=== PATIENT | female | born 1970 | race Caucasian/White ===

== ENCOUNTER 2022-02-15 13:37 | Outpatient (CLI) | payer BC, SELFPAY | END 2022-02-15 13:38 | disposition home or self-care (01) | LOC: INJ CL 13:38 | PROVIDERS: PCP Physician Assistant Medical; Visit Provider Family Medicine | DX: M51.36 Other intervertebral disc degeneration, lumbar region (principal); M54.16 Radiculopathy, lumbar region | CPT/HCPCS: 62323; Q9966 ==

== ENCOUNTER 2022-04-01 11:27 | Outpatient (CLI) | payer BC, SELFPAY | END 2022-04-01 11:28 | disposition home or self-care (01) | LOC: INJ CL 11:27 | PROVIDERS: PCP Physician Assistant Medical; Visit Provider Family Medicine | DX: M54.16 Radiculopathy, lumbar region (principal); M51.36 Other intervertebral disc degeneration, lumbar region | CPT/HCPCS: 64483; J1100; Q9966 ==

== ENCOUNTER 2023-08-02 08:08 | Day surgery (SDC) | payer BC, SELFPAY ==
[2023-08-02] MEDS: TETRACAINE 0.5% OPHTH 1 DROP EYE-LEFT ×2 (08:20→08:32)
[2023-08-02] MEDS: KETOROLAC OPHTH 0.5% 1 DROP EYE-LEFT ×3 (08:30→08:44)
[2023-08-02 08:34] VITALS: BP 181/86; PULSE 77; RESP 18; TEMP 36.5; O2SAT 99
[2023-08-02 08:36] VITALS: BMI 57.4
[2023-08-02] MEDS: TETRACAINE 0.5% OPHTH 2 DROP EYE-LEFT (09:33)
--- NOTE | 2023-08-02 09:37 | W.ANESCHARGE ---
Anesthesia Charges Start Date/Time Anesthesia Start Date: 08/02/23 Anesthesia Start Time: 09:28 Stop Date/Time Anesthesia Stop Date: 08/02/23 Anesthesia Stop Time: 10:04
[2023-08-02] MEDS: BALANCED SALT IRRIG SOLN 15 ML EYE-LEFT (09:38)
--- NOTE | 2023-08-02 09:41 | SUR.PREOP ---
The eye drops brought by the patient (Ketorolac and Prednisolone) are examined and I have determined they are labeled by the patient's pharmacy for this patient as prescribed by the surgeon. The bottles are intact, recently obtained and appear to be correct.
--- NOTE | 2023-08-02 09:58 | W.ANESCHARGE ---
Anesthesia Charges Start Date/Time Anesthesia Start Date: 08/02/23 Anesthesia Start Time: 09:28 Stop Date/Time Anesthesia Stop Date: 08/02/23 Anesthesia Stop Time: 10:04
[2023-08-02 10:00] VITALS: BP 143/77; PULSE 68; RESP 16; TEMP 36.9; O2SAT 100
--- NOTE | 2023-08-02 12:17 | P.OPTPRC_ITS ---
Procedure Note Date of procedure: 08/02/23 Will [facility] bill your pro fee for this procedure?: Yes Procedure Description: SURGEON: Sena Owusu MD PREOPERATIVE DIAGNOSIS: Nuclear sclerotic cataract, left eye. POSTOPERATIVE DIAGNOSIS: Nuclear sclerotic cataract, left eye. NAME OF OPERATION: Phacoemulsification of cataract with posterior chamber intraocular lens implantation in the left eye. ANESTHESIA: Topical. ESTIMATED BLOOD LOSS: Less than 2 cc. COMPLICATIONS: None. PATHOLOGY SPECIMEN: None. INDICATIONS: See consult note for details. The risks, benefits and alternatives of the procedure were explained to the patient, who elected to proceed and signed informed consent to do so. PROCEDURE: The patient was brought to the pre-holding area where the left eye was identified as the operative eye. I placed my initials above this eye. The patient received eye drops consisting of 0.5% tetracaine, 1% tropicamide, 10% phenylephrine, and 0.5% ketorolac. The patient was then brought to the operating room where the left eye was again identified as the operative eye. The eye was prepped with Betadine and draped in the usual sterile ophthalmic fashion. A #15 super-sharp blade was used to create a paracentesis site. 1% non-preserved intracameral lidocaine was injected into the anterior chamber. Endocoat was injected into the anterior chamber. A 2.4 mm keratome was used to create a three-plane self-sealing incision 1 mm anterior to the temporal limbus. A cystotome was used to create an anterior capsular leaflet. The Utrata forceps were used to extend this to form a continuous curvilinear capsulorrhexis. Hydrodissection was performed. The cataract was removed with phacoemulsification using the [id number] technique. The irrigation and aspiration tip was used to remove the remaining cortex. Healon was injected into the capsular bag. An LIZETH ZCB00 intraocular lens of 19.5 diopters was injected into the capsular bag. The irrigation and aspiration tip was used to remove the remaining viscoelastic. Balanced salt solution on a cannula was used to hydrate the wound, and the wound was found to be watertight. The pupil was noted to be round. DISPOSITION: The patient was taken to the recovery room and discharged to home in stable condition. The patient was instructed to call me or go to the emergency department with any sudden change, including dramatic loss of vision, severe pain in the eye or eyebrow region, nausea, or vomiting. The patient will follow up in the clinic tomorrow morning.
== END 2023-08-02 10:31 | disposition home or self-care (01) ==
LOC: OR 08:09
PROVIDERS: Visit Provider Ophthalmology
PROC: (CPT 66984; principal; 2023-08-02 08:15)
DX: H25.12 Age-related nuclear cataract, left eye (principal); E11.9 Type 2 diabetes mellitus without complications
CPT/HCPCS: 66984; 00142; 82962; A9270; J2250; J3010; V2632

== ENCOUNTER 2023-08-16 08:11 | Day surgery (SDC) | payer BC, SELFPAY ==
--- OUTSIDE RECORDS SUMMARY | 2023-08-16 08:13 | XMS_ITS | Clinical Summary ---
Author Name Unknown Organization [employer] [facility] Address [place], [place] [address] Care Team Providers Care Clinical Data Assistant Name Role Phone Kar Soto MD Unavailable [phone] Olvin Vega MD Unavailable [phone] Bhaskar Page MD Unavailable Major Chandler MBBS Unavailable Isak Nielson MD Unavailable Jillian Daley RV MECHANIC Unavailable [phone] Ania Avalos PsyD, LP Unavailable [phone] Na Estes MD Primary Care Provider [phone] Allergies Active Allergy Reactions Criticality Noted Date Comments Cefprozil Hives 12/25/2006 Had ceftriaxone 2020 without issues Erythromycin Diarrhea 12/25/2006 Isosorbide Mononitrate Rash 06/22/2018 Iodine Other - Describe In Comment Field,Angioedema,Na usea And Vomiting,Edema High 12/25/2006 After radioiodine; developed facial swelling and nausea/vomiting. Topical betadine ok. I-131 dye only Latex Hives 11/26/2008 As child had hives due to backing on carpeting..no other exposure issues. Levofloxacin Diarrhea 12/25/2006 Medications Medication Sig Dispensed Refills Start Date End Date Status esomeprazole (NEXIUM) 40 mg capsule Take 1 capsule by mouth 2 times daily. 60 capsule 12 7 Active acetaminophen (TYLENOL EXTRA STRGTH) 500 mg tablet Take 2 tablets by mouth every 6 hours if needed (pain, headache). 0 Active insulin syringe-needle u-100 (BD SAFETYGLIDE) 0.3 mL 31 gauge x 11/29Indications:Un controlled type 2 diabetes mellitus, without long-term current use of insulin For administering insulin at home. 1 box 0 0 Active blood-glucose meterIndications:Un controlled type 2 diabetes mellitus, without long-term current use of insulin Dispense meter, test strips, lancets covered by pt ins. E11.9 NIDDM type II - Test 4 times/day. Reason: High A1C 1 Device 0 1 Active lancetsIndications: Uncontrolled type 2 diabetes mellitus with diabetic dermatitis, with long-term current use of insulin Test 4 times per day. 200 Each 11 1 Active PreviDent 5000 Sensitive 1.1-5 % pste USE DOCTOR INSTRUCTED 0 1 Active cyproheptadine (PERIACTIN) 4 mg tablet Take 4 mg by mouth. 0 1 Active dihydroergotamine (D.H.E.45) 1 mg/mL injection Inject 0.5-1 mg intramuscular. 0 2 Active oxyCODONE-acetamino phen (Percocet) 5-325 mg per tabletIndications:L umbar radiculopathy Take 1 Tablet by mouth every 4 hours if needed for Pain. Max acetaminophen dose: 4000mg in 24 hrs. 12 Tablet 0 2 Active tiZANidine (ZANAFLEX) 2 mg tablet Take 2 Tablets (4 mg) by mouth. 0 2 Active scopolamine 1mg over 3 days (TRANSDERM SCOP) patchIndications:H/ O motion sickness Apply 1 Patch on dry, clean, hairless skin every 72 hours if needed for Nausea/Vomiting. 4 Patch 0 2 Active ondansetron (ZOFRAN) 4 mg tabletIndications:N ausea Take 1 Tablet (4 mg) by mouth every 8 hours if needed for Nausea/Vomiting. 60 Tablet 0 3 Active metoprolol succinate (Toprol XL) 25 mg Sustained-Release tabletIndications:H ypertension,Paroxys mal SVT (supraventricular tachycardia) Take 1 Tablet (25 mg) by mouth once daily. 90 Tablet 3 3 Active atorvastatin (LIPITOR) 40 mg tabletIndications:M ixed hyperlipidemia,Type 2 diabetes mellitus with other specified complication, with long-term current use of insulin (HC) Take 1 Tablet (40 mg) by mouth at bedtime. 90 Tablet 3 3 Active lisinopriL (PRINIVIL; ZESTRIL) 5 mg tabletIndications:H ypertension Take 1 Tablet (5 mg) by mouth once daily. 90 Tablet 3 3 Active blood sugar diagnostic (Blood Glucose Test) stripIndications:Un controlled type 2 diabetes mellitus with hyperglycemia (HC) Test 3 times per day. Contour Next test JUDE ASCE 300 Each 3 3 Active cyclobenzaprine (FLEXERIL) 10 mg tabletIndications:S pasm of muscle of lower back Take 1 Tablet (10 mg) by mouth 3 times daily if needed for Muscle Spasm. 60 Tablet 2 3 Active citalopram (CELEXA) 20 mg tabletIndications:A nxiety Take 1.5 Tablets (30 mg) by mouth every morning. 135 Tablet 1 3 Active nystatin powder (MYCOSTATIN) powderIndications:I ntertriginous candidiasis Apply 1 Strip topically to affected area(s) three times daily. 60 g 5 3 Active pramipexole (MIRAPEX) 0.25 mg tabletIndications:R estless legs Take 3-4 Tablets (0.75-1 mg) by mouth at bedtime. 360 Tablet 1 3 Active benzonatate (Tessalon Perles) 100 mg capsuleIndications: Viral sinusitis Take 1 Capsule (100 mg) by mouth 3 times daily if needed for Cough. 30 Capsule 0 3 Active codeine-guaiFENesin (ROBITUSSIN AC) 10-100 mg/5 mL liquidIndications:V iral sinusitis Take 5-10 mL by mouth at bedtime if needed for Cough. Max dose 60 mL per 24 hrs. 100 mL 0 3 Active levothyroxine (SYNTHROID) 200 mcg tabletIndications:P ostoperative hypothyroidism Take 1 Tablet (200 mcg) by mouth before breakfast. 90 Tablet 2 3 Active loratadine-pseudoep hedrine (lorata-dine D) 10-240 mg 24hr tabletIndications:P ost-nasal drainage Take 1 Tablet by mouth once daily. 90 Tablet 3 3 Active dulaglutide (Trulicity) 4.5 mg/0.5 mL subcutaneous penIndications:Type 2 diabetes mellitus with other specified complication, with long-term current use of insulin (HC) Inject 4.5 mg subcutaneous once weekly. 7 mL 2 3 Active insulin lispro, U-100, (HumaLOG KwikPen Insulin) 100 unit/mL inpn penIndications:Type 2 diabetes mellitus with other specified complication, with long-term current use of insulin (HC) Product desired: HUMALOG KWIKPEN. Inject up to 40u three times daily with meals 9 mL 3 3 Active polyethylene glycol 3350 (MIRALAX ORAL) Take by mouth. 0 A ctive ketorolac tromethamine (TORADOL IM) Inject intramuscular each time if needed (Migraine). 0 Active pregabalin (LYRICA) 300 mg capsule Take 300 mg by mouth two times daily. 0 3 Active pen needle, diabetic (UltiCare Pen Needle) 31 gauge x 516Indications:Un controlled type 2 diabetes mellitus with hyperglycemia (HC) For administering insulin at home. 450 Each 3 4 Active Lantus Solostar U-100 Insulin 100 unit/mL (3 mL) penIndications:Type 2 diabetes mellitus with hyperglycemia, with long-term current use of insulin (HC) Inject 83 units subcutaneous 2 times daily 12 hours apart. 150 mL 0 4 Active UltiCare Pen Needle 31 gauge x 516Indications:Un controlled type 2 diabetes mellitus with hyperglycemia (HC) USE FOR ADMINISTERING INSULIN AT HOME 450 Each 3 2 07/26/19 24 Discontinu ed(Reorder (E-cancel not sent)) Lantus Solostar U-100 Insulin 100 unit/mL (3 mL) penIndications:Type 2 diabetes mellitus with hyperglycemia, with long-term current use of insulin (HC) Inject 80 units subcutaneous 2 times daily 12 hours apart. 150 mL 0 3 08/14/19 24 Discontinu ed(Reorder (E-cancel not sent)) Active Problems Patient Care Coordination No te Formatting of this note migh t be different from the original. Alea's two adopted adult daughters are what matters most to Alea. Alea would like her care team to know ...none.. What are Alea's challenges, stressors, or barriers? Grief over loss of father, financial stressors, ongoing foot pain Problem Noted Date Diagnosed Date COVID-19 long hauler 02/25/2022 Overview: Chronic shortness of breath and weakness since COVID-19. Headaches. COVID-19 infection x2 Esophageal stricture 02/25/2022 Overview: Follows with [facility]-- last dilation 10/2020 Microalbuminuria due to type 2 diabetes mellitus 10/01/2021 Overview: 10/01/2021 Paroxysmal SVT (supraventricular tachycardia) Depression, major, single episode, severe 2021 Other specified glaucoma 05/24/2021 Primary open angle glaucoma (POAG) of both eyes, mild stage 03/08/2021 Bilateral occipital neuralgia 08/13/2020 Overview: Left occipital nerve block: kenalog + bupivacaine 08/13/2020 Complex tear of lateral meni scus of left knee as current injury 04/06/2020 COVID-19 virus infection 10/23/2019 Lower respiratory tract infection 10/17/2019 Pain due to internal orthope dic prosthetic devices, implants and grafts, sequela 01/01/2019 Uncontrolled type 2 diabetes mellitus without complication, without long-term current use of insulin 01/16/2018 PE (pulmonary thromboembolism) 11/22/2017 Deep vein thrombosis (DVT) o f distal vein of right lower extremity, unspecified chronicity 11/22/2017 Myopia of left eye with astigmatism and presbyop ia 02/06/2017 Hyperopia of right eye with astigmatism and pres byopia 02/06/2017 Postoperative hypothyroidism 03/25/2015 Hyperlipidemia 03/14/2014 Overview: Ran calculations Mar 14.;2014: With age43,fhsk035,hdl52, yfu909, treated hypertension, +dm. 10year ATHEROSCLEROTIC CARDIOVASCULAR DISEASE risk = 1.9% Recommend =mod intensity statin (10mg atorvastatin) Varicose veins of lower extr emities with other complications 09/18/2013 Overview: 09/26/13 Venous insufficiency US - 1. No deep venous thrombosis of the left lower extremity. 2. The left great saphenous vein is competent. 3. The left small saphenous vein is competent. 4. A 3 mm incompetent perforating branch is present along the anterior distal thigh and supplies superficial varicosities extending cephalad along the lateral thigh. Hypertension 04/23/2011 Vitamin D deficiency 09/10/2010 Overview: Level was 22.4 in the August 2010. 22.1 in Jun 2012. 28 in September 2012 Obesity, unspecified 11/26/2008 GERD (gastroesophageal reflux disease) 9 Gastroparesis 11/26/2008 Restless legs 11/26/2008 Papillary thyroid cancer 08/13/2007 Overview: Papillary thyroid cancer, stage 1; T1, N1a, M0 01/22/01: Surgery: subtotal thyroidectomy Pathology (reviewed at [facility] - see notes from [facility] that are currently in the system as scan on date = 08/13/07): Grade 1 (of 4) papillary thyroid cancer with 1.1cm focus. Tumor focally extended into extracapsular soft tissue. Margins negative. 1 out of 2 lymph nodes positive for metastatic disease. MACIS = 4.4 03/20/01: Given radioiodine 200 mCi listed in [facility] system (but patient recall 211 mCi ) I-131 ablation *pt had reaction to the radioiodine ablation, having development of facial swelling and nausea and vomiting soon after treatment. Has a less severe reaction around 2003 as well when have a whole body iodine scan. Pertinent risk factors: Family history: no thyroid cancer in family. Prior radiation history: not prior to radioiodine treatment for thyroid cancer Additional notes: See comments regarding: radioiodine reaction Also, had postoperative hypocalcemia. ___ Follow up: Two weeks after radioiodine given , post therapy scan was negative (done on 04/02/01) Reportedly had follow up with Dr. Tam Daley with [facility] for several years. This included a whole body scan around 2003 that was normal per report. Other specifics of follow up not available at this time. 08/13/07: Tg=0.1 08/16/07: Thyroid ultrasound: Area in the left thyroid bed which has the appearance of a residual thyroid.; this could potentially represent some recurrent thyroid tissue. 08/24/07: Thyroid ultrasound: Ultrasound of the neck evaluating for potential area to biopsy demonstrates some very vague area of increased echogenicity in the left thyroid bed, which appears to change shape and is very ill defined. This likely represents some postop change. This is not well enough defined to safely percutaneously biopsy. I think the likelihood that this represents recurrent tumor is extremely low. 04/03/08: Tg=0.1 07/24/08: thyroid ultrasound and FNA: An echogenic rounded density which with a benign appearance is seen at the left thyroid bed. This could be scar tissue. The patient is here today for fine needle aspiration. Stable in size and comparison. Pathologist did not obtain any significant material. I believe this is because its a scar, and as the ultrasound appearance is stable, I recommend just follow-up with ultrasound Results = nondiagnostic, blood; no thyroid cells. Unlikely malignant. 05/12/10: Tg = <0.1 with TSH of 0.16 06/28/12: Tg <0.1; neg TgAby. Thyroid ultrasound: Again seen is a small hyperechoic area in the left thyroid bed measuring 1.0 x 0.6 x 0.6 cm. This is stable since the prior study in 2008. Thyroid bed otherwise normal. No adenopathy in the neck. November 2012: patient felt fullness/swelling and pain in anterior neck. 11/22/12: thyroid ultrasound compared with prior ultrasounds. There is a slightly hyperechoic nodular focus within the left thyroidectomy bed, which measures 9 x 5 x 5 mm. This is decrease in size when compared to images dating back to 2008 when it measured 10 x 6 x 6 mm. No other soft tissue nodules. Several benign-appearing nonenlarged cervical chain lymph nodes. FNA (11/22/12): Actually FNA cytopathology: LEFT THYROID BED, FINE NEEDLE ASPIRATION:1. Negative for malignancy. 2. Blood and soft tissue noted FNA Report: The tissue was found to contain scant soft tissue. This is despite numerous attempts at containing fine needle aspirate. Unfortunately, aspirates revealed minimal nonspecific soft tissue. Given the stability in appearance of this lesion over the past 4 years and its size, neoplasm would be highly unlikely. Consider followup ultrasound in 1 to 2 years to document stability. 11/20/12: Tg <0.1 (neg TgAby) 10/30/13 Tg = 0.1, (neg TgAby) 07/14/14: Thyroid ultrasound: CONCLUSION: 1. Stable postoperative changes of total thyroidectomy. 2. Stable nodule left thyroid bed (1.0cm), previously shown by biopsy to be benign. 08/26/14: Tg = 0.6 (neg TgAby) with TSH = 82 ! (off levothyroxine) Update Feb 2015: To this point there has been no evidence for recurrent or persistent disease. She has a small left thyroid bed nodule that is stable (or?decreased even) in size. This was biopsied/FNAed (November 2012). It sounds like there was scant material but it was read as benign and the stability of the nodule is very reassuring. September 2015: Tg<0.1. (neg TgAby) Mar 2016: thyroid ultrasound FINDINGS: The thyroid is surgically absent. Within the upper left thyroid bed there is a single hyperechoic nodule which measures 0.9 x 0.6 x 0.6 cm, previously 1.0 x 0.7 x 0.6 cm.??No cervical lymphadenopathy.?? CONCLUSION:1.?? No significant change since 07/14/2014. Tg = 0.1 in Jul 2016, with TSH = 12 Next Tg: around Aug 2018 Next thyroid ultrasound: Aug 2018 roughly Migraine, unspecified, witho ut mention of intractable migraine without mention of status migrainosus 03/17/2007 Esophageal reflux 03/02/2006 Peroneal tendon tear, right, subsequent encounte r Resolved Problems Problem Noted Date Diagnosed Date Resolved Date Acute respiratory failure with hypoxia 10/23/2019 07/28/2021 Anticoagulation monitoring, INR range 2-3 11/24/2017 01/18/2023 Controlled type 2 diabetes m ellitus with complication, with long-term current use of insulin 04/05/2016 01/16/2018 Irritable bowel syndrome without diarrhea 09/16/2015 01/16/2018 Issue of repeat prescriptions 09/01/2014 02/25/2022 Hypothyroidism 03/06/2014 03/25/2015 Overview: On 200mcg levothyroxine , TSH was elevated into the 30s in Feb 2014 without missing doses. Taking with food and/or other medications however. Going up to 250mcg levothyroxine daily and recommend taking on empty stomach, starting mid February. Uncontrolled type 2 diabetes mellitus with complication, with long-term current use of insulin 07/17/2013 01/16/2018 Overview: Diagnosis: Jun 2013. Starting Metformin Oct 2013 Started insulin Feb 2014. Other chronic nonalcoholic liver disease 05/17/2012 01/16/2018 Vitamin D deficiency 09/14/2010 012 Cellulitis and abscess of face 08/13/2007 11/29/2011 Overview: 2004-onset , with multiple recurrences Encounters Date Type Department Care Team Description 4 10:00 AM GEAR HOBBER Procedure Only [facility] [address] [place] [address] Yo Owens L Ac Acupuncture 4 Travel 4 Travel 4 11:00 AM GEAR HOBBER Procedure Only [facility] [address] [place] [address] Yo Owens L Ac Acupuncture 4 8:30 AM GEAR HOBBER Telemedicine [facility] [address] [place] [address] Ania Avalos, Sidney, LP Individual Therapy; Telehealth (/) 4 Travel 4 6:49 AM GEAR HOBBER - 4 11:59 PM GEAR HOBBER Hospital Encounter [facility] [place] [address] [place] [address] Reed Barclay, Stacy Rene, PT 4 Travel 4 7:30 AM GEAR HOBBER Preop Visit [facility] [address] [place] [address] Na Estes MD Pre-Op Exam (Bilateral Cataract Surgery at [facility] on 08/02 & 08/16) 4 11:18 AM GEAR HOBBER - 4 11:59 PM GEAR HOBBER Hospital Encounter [facility] [address] [place] [address] Reed Barclay PA Hassell, Julie A, PT 4 Travel 4 9:00 AM GEAR HOBBER Procedure Only [facility] [address] [place] [address] Yo Owens L Ac Acupuncture (1st treatment for 2023.) 4 Travel 4 3:38 PM GEAR HOBBER - 4 11:59 PM GEAR HOBBER Hospital Encounter [facility] [address] [place] [place] [address] Reed Barclay, Stacy Rene, PT 4 Travel 3 8:30 AM GEAR HOBBER Telemedicine [facility] [address] [place] [address] Ania Avalos PsyD, LP Individual Therapy; Telehealth 3 Travel 3 9:00 AM GEAR HOBBER Procedure Only [facility] [address] [place] [address] Yo Owens L Ac Acupuncture (39th treatment.) 3 8:20 AM GEAR HOBBER Ancillary Procedure [facility] [address] [place] [address] [facility] [address] [place] [address] Yo Owens L Ac Acupuncture (Order request.) 3 Travel 3 Travel 3 7:55 AM GEAR HOBBER - 3 8:36 AM GEAR HOBBER Surgery [facility] [address] [place] [address] Valentin Wen MD ESOPHAGOGASTRODUODENOSCOPY WITH DILATION 3 7:55 AM GEAR HOBBER Anesthesia Event [facility] [address] [place] [address] Kourtney Hanks MD Perese, Deniz A, MD 3 5:57 AM GEAR HOBBER - 3 12:27 PM GEAR HOBBER Hospital Encounter [facility] [address] [place] [address] Valentin Wen MD Discharge Disposition: Home Self Care 3 7:30 AM GEAR HOBBER Preop Visit [facility] [address] [place] [address] Na Estes MD Pre-Op Exam (DOS: 07/04/2023/Endoscopy with Dilation /Dr: Murali Wen @ [place]) 3 Travel 3 Orders Only [facility] [address] [place] [address] Na Estes MD <No scans attached> 3 12:19 PM GEAR HOBBER - 3 11:59 PM GEAR HOBBER [facility] [place] [address] [place] [address] Referring, Provider Stacy Carr, PT 3 Travel 3 10:30 AM GEAR HOBBER Procedure Only [facility] [address] [place] [address] Yo Owens L Ac Acupuncture (38th treatment.) 3 Travel 3 8:30 AM GEAR HOBBER Telemedicine [facility] [address] [place] [address] Ania Avalos, Sidney, LP Individual Therapy; Telehealth 3 8:30 AM GEAR HOBBER Office Visit [facility] [address] [place] [address] Na Estes MD Diabetes; Edema 3 6:50 AM GEAR HOBBER - 3 11:59 PM GEAR HOBBER Hospital Encounter [facility] [address] [place] [address] Reed Barclay PA Hassell, Julie A, PT 3 Travel 3 Travel 3 8:00 AM GEAR HOBBER Procedure Only [facility] [address] [place] [address] Yo Owens L Ac Acupuncture (37th treatment.) 3 11:57 AM GEAR HOBBER - 3 11:59 PM GEAR HOBBER Hospital Encounter [facility] [address] [place] [address] Reed Barclay, Stacy Rene, PT 3 Travel 3 9:40 AM GEAR HOBBER Orders Only [facility] [address] [place] [address] Lab 3 Travel 3 Travel 3 3:15 PM GEAR HOBBER - 3 11:59 PM GEAR HOBBER Hospital Encounter [facility] [address] [place] [address] Reed Barclay PA Hassell, Julie A, PT 3 10:20 AM GEAR HOBBER Telemedicine [facility] [address] [place] [address] Leslee Dee PA Edema (Bilateral feet, one week) 3 8:30 AM GEAR HOBBER Telemedicine [address] [address] Ania Avalos, Sidney, LP Individual Therapy; Telehealth 3 Travel 3 Travel 3 8:30 AM GEAR HOBBER Procedure Only [facility] [address] [place] [address] Yo Owens L Ac Acupuncture 3 7:39 AM GEAR HOBBER - 3 11:59 PM GEAR HOBBER Hospital Encounter [facility] [address] [place] [address] Reed Barclay PA Hassell, Julie A, PT 3 Travel 3 7:30 AM GEAR HOBBER Office Visit [facility] [address] [place] [address] Na Estes MD Physical (Patient would like to talk about ayest infection) 3 Travel 3 12:55 PM CDT - 3 11:59 PM CDT [facility] [place] [address] [place] [address] Reed Barclay PA Hassell, Julie A, PT 3 Travel from Last 3 Months Immunizations Name Administration Dates Next Due COVID-19 vaccine (Podotree 30mcg/0.3mL) STEFANIA CASTILLO 10/08/2021,05/04/2021,10/30/2020,2020 DT (Age < 7 years) 12/08/2005 Hepatitis B (Adult) 09/24/1999,05/03/1999,1998 Pneumococcal Poly,23-Valent (Pneumovax) 01/31/2020 Pneumococcal conj 13-Valent (Prevnar 13) 09/08/2021 Tdap 06/12/2017,12/08/2005 Zoster (Shingrix-RZV, recombinant) 07/30/2021, Family History Medical History Relation Name Comments Hypertension Brother Cancer Father diffuse large B -cell lymphoma Depression Father Diabetes Father Heart Disease Father cad Hypertension Mother improved after skilled nursing Other Mother scleroderma Cancer Other first cousin ut erine cancer Aneurysm Paternal Grandfather 9 diffe rent ones-- none ruptured Coronary artery disease Paternal Grandfather Other Paternal Grandfather glaucom a fathers side Thyroid Disease Paternal Grandmother Depression Sister Diabetes Sister Hyperlipidemia Sister Hypertension Sister Other Sister ICH Seizures Sister Cancer-breast No Family History Relation Name Status Comments Brother Alive Father (Age 65) Mother Alive Other Paternal Grandfather Paternal Grandmother Sister Alive Social History Tobacco Use Types Packs/Day Years Used Date Smoking Tobacco: Never Smokeless Tobacco: Never Tobacco Cessation:Counseling Given: No Alcohol Use Standard Drinks/Week Comments Not Currently 0 (1 standard drink = 0.6 oz pur e alcohol) every few months PHQ-2 Answer Date Recorded PHQ-2 TOTAL SCORE 1 07/31/2023 Social Connections Answer Date Recorded Frequency of Communication with Friends and Fami ly 0 06/09/2023 Financial Resource Strain Answer Date R ecorded Difficulty of Paying Living Expenses 3 06/09/2023 Difficulty of Paying Living Expenses Not on file 06/09/2023 Food Insecurity Answer Date Recorded Worried About Running Out of Food in the Last Ye ar 1 06/09/2023 Transportation Needs Answer Date Record ed Lack of Transportation (Medical) 1 06/09/2023 Housing Stability Answer Date Recorded Unable to Pay for Housing in the Last Year 1 06/09/2023 Sex and Gender Information Value Date Recorded Sex Assigned at Female 07/05/2021 12:17 AM GEAR HOBBER Gender Identity Female 07/05/2021 12:17 AM GEAR HOBBER Sexual Orientation Straight 07/05/2021 12 :17 AM GEAR HOBBER Obstetrics History Para Term AB IAB SAB Ectopic Multiple Livin g Live Births 0 0 0 0 0 0 0 0 0 0 Last Filed Vital Signs Vital Sign Reading Time Taken Comments Blood Pressure 157/75 07/26/2023 7:36 AM GEAR HOBBER Pulse 62 07/26/2023 7:33 AM GEAR HOBBER Temperature 36.2 ??C (97.2 ??F) 07/04/2023 9:20 AM CS T Respiratory Rate 21 07/26/2023 7:33 AM GEAR HOBBER Oxygen Saturation 97% 07/26/2023 7:33 AM GEAR HOBBER Inhaled Oxygen Concentration - - Weight 176.4 kg (389 lb) 07/26/2023 7:33 AM GEAR HOBBER Height 175.3 cm (5' 9) 07/26/2023 7:33 AM GEAR HOBBER Body Mass Index 57.45 07/26/2023 7:33 AM GEAR HOBBER Plan of Treatment Upcoming Encounters Date Type Department Care Team (Late st Contact Info) Description 08/21/2023 8:30 AM GEAR HOBBER Telemedicine [facility] [address] [facility] [address] [facility] [address] [place] [address] Ania Avalos PsyD, LP [facility] [address] [place] [address] 08/21/2023 11:00 AM GEAR HOBBER Procedure Only [facility] [address] [place] [address] Yo Owens L Ac [address] [place] [address] 09/01/2023 9:00 AM GEAR HOBBER Procedure Only [facility] [address] [place] [address] Yo Owens L Ac [address] [place] [address] 09/04/2023 3:15 PM GEAR HOBBER Appointment [facility] [place] [address] [place] [address] Stacy Carr, PT [address] [place] [address] 09/06/2023 8:30 AM GEAR HOBBER Telemedicine [facility] [address] [place] [address] Ania Avalos PsyD, LP [facility] [address] [place] [address] 09/11/2023 8:00 AM GEAR HOBBER Office Visit [facility] [address] [place] [address] [place] [address] [place] [address] 09/11/2023 3:15 PM GEAR HOBBER Appointment [facility] - [place] [address] [place] [address] Stacy Carr, PT [address] [place] [address] 09/15/2023 9:00 AM GEAR HOBBER Procedure Only [facility] [address] [place] [address] Yo Owens L Ac [address] [place] [address] 09/25/2023 8:30 AM CDT Telemedicine [facility] [address] [place] [address] Robbie, Ania A, PsyD, LP [address] [place] [address] 09/29/2023 8:00 AM CDT Procedure Only [facility] [address] [place] [address] Yo Owens L Ac [address] [place] [address] 10/13/2023 8:00 AM CDT Procedure Only [facility] [address] [place] [address] Yo Owens L Ac [address] [place] [address] 10/16/2023 8:30 AM CDT Telemedicine [facility] [address] [place] [address] Robbie, Ania A, PsyD, LP [address] [place] [address] 11/06/2023 8:30 AM CDT Telemedicine [facility] [address] [place] [address] Robbie, Ania A, PsyD, LP [address] [place] [address] 11/27/2023 8:30 AM CDT Telemedicine [facility] [address] [place], [place] [id number] Robbie, Ania A, PsyD, LP [address] [place], [place] [id number] 12/18/2023 8:30 AM CDT Telemedicine [facility] [address] [place] [address] Robbie, Ania A, PsyD, LP [address] [place] [address] 01/08/2024 8:30 AM CDT Telemedicine [facility] [address] [place] [address] Rbobie, Ania A, PsyD, LP [address] [place] [address] Health Maintenance Due Date Last Done Comments HIV for age 15-65 1986 Fecal testing sDNA-FIT ([place] guard) for age 45-75 2016 COVID-19 vaccine series (2022- season) 2023 04/02/2022, 10/08/2021, 05/04/2021, Additional history exists Mammogram for age 45-75 07/07/2024 07/07/20 23, 06/17/2022, 06/14/2021, Additional history exists BMI (ht and wt on same day) for age 18+ 07/26/2024 07/26/2023, 07/03/2023, 05/24/2023, Additional history exists Depression screening for age 12+ 07/31/2024 07/31/2023, 07/31/2023, 07/12/2023, Additional history exists Tetanus booster 06/12/2027 06/12/2017, 12/08/2005 Lipids for age 45-75 09/02/2027 09/02/2022, 02/25/2022, 01/22/2021, Additional history exists Pneumococcal series for age 6-64 (3 of 3 - PPSV23 or PCV20) 2036 09/08/2021, 01/31/2020 Hepatitis B series for Diabetes Completed 09/24/1999, 05/03/1999, 03/10/1999 Tdap Completed 06/12/2017, 12/08/2005 Zoster (shingles) series for age 50+ Completed 07/30/2021, 05/21/2021 Hepatitis C screening for ag e 18-79 Completed 02/25/2022 Medical Devices Implanted Type Area Gift Basket Packer Device Identifier Shelf Expiration Date Model / Serial / Lot Iud, Mirena - [id number] Implanted:Qty: 1 on 01/02/2015 by Mireya Avila MD at [facility] N/A: Uterus R-BACILIO 08/04/2017 [id number] / / [id number] Screw Foot 5x50mm Fixos Comp Implanted:Qty: 1 on 08/20/2018 by Jerod Rivera DPM at [facility] Left: Calcaneus Description:SCREW FOOT 5X50M M FIXOS COMP Procedures Procedure Name Priority Date/Time Associated Diagnosis Comments ACUPUNCTURE PLAN OF CARE Routine 024 9:49 AM GEAR HOBBER Chronic pain of both knees Other low back pain Other chronic pain Chronic intractable headache, unspecified headache type Chronic migraine without aura without status migrainosus, not intractable ACUPUNCTURE PLAN OF CARE Routine 024 12:33 PM GEAR HOBBER Chronic pain of both knees Other low back pain Other chronic pain Chronic intractable headache, unspecified headache type Chronic migraine without aura without status migrainosus, not intractable ACUPUNCTURE PLAN OF CARE Routine 023 8:40 AM GEAR HOBBER Other chronic pain Migraine syndrome Neck pain Myofascial pain Bilateral occipital neuralgia Chronic pain of both knees XR MAMMO BILAT SCREENING Routine 023 8:34 AM GEAR HOBBER Visit for screening mammogram GLUCOSE METER Timed 07/04/2023 8:48 AM GEAR HOBBER ESOPHAGOGASTRODUODENOSCOPY WITH DILATION Elective 07/04/2023 7:52 AM GEAR HOBBER Dysphagia Case Notes Endo staff needed ENDOSCOPY 07/04/2023 7:30 AM GEAR HOBBER GLUCOSE METER Timed 07/04/2023 6:50 AM GEAR HOBBER SCAN-CARDIAC STRIP 07/04/2023 12:00 AM GEAR HOBBER POTASSIUM Routine 07/03/2023 7:56 AM GEAR HOBBER Preoperative cardiovascular examination ACUPUNCTURE PLAN OF CARE Routine 023 10:34 AM GEAR HOBBER Other chronic pain Migraine syndrome Neck pain Myofascial pain Bilateral occipital neuralgia Chronic pain of both knees BASIC METABOLIC PANEL Routine 06/12/2023 9:20 AM GEAR HOBBER Bilateral lower extremity edema HEMOGLOBIN A1C Routine 06/12/2023 9:20 AM GEAR HOBBER Type 2 diabetes mellitus with other specified complication, with long-term current use of insulin (HC) ACUPUNCTURE PLAN OF CARE Routine 023 7:55 AM GEAR HOBBER Other chronic pain Migraine syndrome Neck pain Myofascial pain Bilateral occipital neuralgia Chronic pain of both knees POTASSIUM Routine 06/05/2023 9:09 AM GEAR HOBBER Bilateral lower extremity edema ACUPUNCTURE PLAN OF CARE Routine 023 8:25 AM GEAR HOBBER Other chronic pain Migraine syndrome Neck pain Myofascial pain Bilateral occipital neuralgia Chronic pain of both knees from Last 3 Months Results * XR MAMMO BILAT SCREENING (07/07/2023 8:34 AM GEAR HOBBER) Anatomical Region Laterality Modality BREASTS, Breast Left, Breast Right Bilateral Mammography Impressions 07/07/2023 12:59 PM GEAR HOBBER ??There is no radiographic evidence for malignancy. ??Recommend annual mammograms. MAMMOGRAM ASSESSMENT: ??ACR 1 Negative PATIENTS: You will also receive a letter with your examination results in an easy to read format. ??If you have questions about your results, please contact your referring provider. Narrative 07/07/2023 12:59 PM GEAR HOBBER For Patients: As a result of the Cures Act, medical imaging exams and procedure reports are released immediately into your electronic medical record. You may view this report before your referring provider. If you have questions, please contact your health care provider. XR MAMMO BILAT SCREENING [[id number]] CLINICAL HISTORY: ??This is an asymptomatic 53 y.o. patient. INDICATION FOR EXAM: Mammogram Screening. TECHNIQUE: CC & MLO views were obtained. ??This study was evaluated with the assistance of Computer-Aided Detection. COMPARISON FILM: Yes 06/17/22 [facility] 06/14/21 [facility] FINDINGS: ??The breasts have scattered areas of fibroglandular density. There are no dominant masses, suspicious micro calcifications or areas of architectural distortion. Yenni Sanchez RV MECHANIC MAMMO * (ABNORMAL) GLUCOSE METER (07/04/2023 8:48 AM GEAR HOBBER) Only the most recent of2 resultswithin the time period is included. GLUCOSE METER 122(H) 65 - 100 mg/dL 07/04/2023 8:50 AM GEAR HOBBER [facility] Blood BLOOD SPECIMEN / Unknown 07/04/2023 8:48 AM GEAR HOBBER 07/04/2023 8:50 AM GEAR HOBBER Valentin Wen MD CHEMISTRY [facility] [address] [place] [address], * ENDOSCOPY (07/04/2023 7:30 AM GEAR HOBBER) 07/04/2023 7:30 AM GEAR HOBBER Narrative Transcriptions Valentin Wen MD - 07/04/2023 8:35 AM CST [facility] Patient Name: Laura Madrid Procedure Date: 07/04/2023 Gender: Female Date of : 1970 Admit Type: Ambulatory Procedure: Upper GI endoscopy Proceduralist: Valentin Wen MD - [facility] Indications/Pre-Op Diagnosis: Dysphagia Medications: Monitored Anesthesia Care Procedure Description: Risk of bleeding, infection, perforation, need for surgery and alternatives discussed. The endosocpe [id number] was introduced through the mouth, and advanced to the body of the stomach. The upper GI endoscopy was accomplished without difficulty. The patient tolerated the procedure well. Complications: No immediate complications. Estimated Blood Loss & Specimen: Estimated blood loss: none. Specimen collected: None Findings: The examined esophagus was normal. A TTS dilator was passed throughthe scope. Dilation with an 18-19-20 mm balloon dilator was performed to20 mm. A large amount of food (residue) was found in the gastric body. Impressions/Post-Op Diagnosis: - Normal esophagus. Empirically dilated to 20 mm. - A large amount of food (residue) in the stomach. Recommendation: - Observe patient's clinical course. - Return to GI office PRN. Valentin Wen MD 07/04/2023 8:35:38 AM This report has been signed electronically. Note Initiated On: 07/04/2023 7:30 AM Valentin Wen MD PROCEDURE ORD * SCAN-CARDIAC STRIP (07/04/2023 12:00 AM GEAR HOBBER) Narrative 07/04/2023 12:00 AM GEAR HOBBER Ordered by an unspecified provider. Other Clinical Staff OTHER * POTASSIUM (07/03/2023 7:56 AM GEAR HOBBER) Only the most recent of2 resultswithin the time period is included. POTASSIUM 4.2 3.5 - 5.1 mmol/L 07/03/2023 2:14 PM GEAR HOBBER [facility] Blood BLOOD SPECIMEN / Unknown Venipuncture / Unknown 07/03/2023 7:56 AM GEAR HOBBER 07/03/2023 7:56 AM GEAR HOBBER Na Estes MD CHEMISTRY Performing Organization Address City/State/[facility] Co de Phone Number [facility] [address] [place], [place] [id number], * (ABNORMAL) HEMOGLOBIN A1C MONITORING (POCT) (06/12/2023 9:20 AM GEAR HOBBER) Pathologist [facility] HEMOGLOBIN A1C MONITORING (POCT) 8.3(H) <=6.4 % 06/12/2023 10:18 AM GEAR HOBBER [facility] Blood BLOOD SPECIMEN / Unknown Venipuncture / Unknown 06/12/2023 9:20 AM GEAR HOBBER 06/12/2023 9:20 AM GEAR HOBBER Narrative [facility] - 06/12/2023 10:18 AM GEAR HOBBER ? (<=6.9%) ? Indicates good control ? (7.0% to 7.9%) ? Indicates fair control ? (>=8.0%) ? Indicates poor control ?? NOTE: ??These thresholds are guidelines and ?individual targets may vary. Falsely low levels may be seen with: Recent Transfusion, Recent Significant Blood Loss, Hemolytic Diseases, or Falsely elevated levels may be seen with: Untreated Anemias, Splenectomy ? Na Estes MD CHEMISTRY [facility] [address] [place] [address], * (ABNORMAL) BASIC METABOLIC PANEL (06/12/2023 9:20 AM GEAR HOBBER) SODIUM 137 136 - 145 mmol/L 06/12/2023 1:43 PM [facility] POTASSIUM 4.4 3.5 - 5.1 mmol/L 06/12/2023 1:43 PM [facility] CHLORIDE 101 98 - 107 mmol/L 06/12/2023 1:43 PM [facility] CO2,TOTAL 25 22 - 29 mmol/L 06/12/2023 1:43 PM [facility] ANION GAP 11 5 - 18 06/12/2023 1:43 PM [facility] GLUCOSE 194(H) 70 - 99 mg/dL 06/12/2023 1:43 PM [facility] CALCIUM 9.1 8.6 - 10.0 mg/dL 06/12/2023 1:43 PM [facility] BUN 10 6 - 20 mg/dL 06/12/2023 1:43 PM [facility] CREATININE 0.79 0.50 - 0.90 mg/dL 06/12/2023 1:43 PM [facility] BUN/CREAT RATIO 13 10 - 20 3 1:43 PM [facility] eGFR 90(L) >90 mL/min/1.7 3m2 06/12/2023 1:43 PM [facility] Comment:As of 2021, eG FR is calculated by the CKD-EPI creatinine equation without race adjustment. ??eGFR can be influenced by muscle mass, exercise, and diet. ??The reported eGFR is an estimation only and is only applicable if the renal function is stable. Blood BLOOD SPECIMEN / Unknown Venipuncture / Unknown 06/12/2023 9:20 AM GEAR HOBBER 06/12/2023 9:20 AM GEAR HOBBER Na Estes MD CHEMISTRY [facility] 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 Healthcare Directive 09/10/2022 023 Healthcare Directive 02/06/2010 HEALTH DIRECTIVE Healthcare Directive 03/21/2007 Latest Code Status on File Code Status Date Activated Date Inactivated Comments Full Code 07/04/2023 6:13 AM 07/04/2023 2:27 PM Question Answer Comments Code Status Discussion: Unable to Assess Preferences, Provider to review later Code Status History Code Status Date Activated Date Inactivated Comments Full Code 04/28/2022 10:21 AM 04/28/2022 2:29 PM Question Answer Comments Code Status Discussion: Unable to Assess Preferences, Provider to review later Full Code 10/28/2020 10:04 AM 10/28/2020 2:19 PM Question Answer Comments Code Status Discussion: Discussed Full Code 10/17/2019 4:27 PM 10/23/2019 4:39 PM Full Code 09/27/2019 8:23 AM 09/27/2019 11:54 AM Care Teams Clinical Data Assistant Relationship Specialty [place] [address] [place] [address] PCP - General Internal Medicine 06/12/23 Kar Soto MD Neurology 05/14/14 Olvin Vega MD [facility] [facility] [address] [place], [place] [id number] Endocrinology 05/14/14 Bhaskar Page MD [address] [place] [address] [address] [place] [address] Gastroenterology 05/14/14 Major Chandler MBBS [address] [place] [address] Consulting Physician Cardiovascular Disease 02/05/19 Isak Nielson MD [address] [place] [address] Consulting Physician Cardiology - Electrophysiology 04/22/19 Jillian Daley, SAMANTHA [address] [place] [address] Nurse Practitioner Cardiology - Electrophysiology 07/31/19 Ania Avalos PsyD, LP [address] [facility] [address] [place] [address] Psychologist Psychology 10/03/19
--- OUTSIDE RECORDS SUMMARY | 2023-08-16 08:13 | XMS_ITS | Patient Health Record ---
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 Patient prefers [place]. Please call patient to schedule at [phone]. Diagnosis 1 Radiculopathy, lumbo sacral region (M54.17) Referral Organization [facility] Referring Provider First Name Reed Referring Provider Last Name Deny Referring Provider Speciality Physician Behavioral Specialist Referred Provider Filippo Keller Referred Provider Specialty Physical The rapist General Notes Kelli Moe 023 10:45:09 AM >Please call the patient to schedule and fax back all notes to [phone]. If you need additional records for this referral, please call [phone]. Thanks! Referral Priority Routine Reason Left L5-S1, S1 TFE Diagnosis 1 Low back pain, unspe cified (M54.50) Referral Organization [facility] Referring Provider First Name Fabrizio Referring Provider Last Name Emiliano Referring Provider Speciality Pain Medic ine Referred Organization [facility] Referred Provider Fabrizio Cummings Referred Address [address],[place], [place],[address], Referred Provider Specialty Pain Medicin e Referral Priority Routine Reason Cesar L4-S1 MBB Diagnosis 1 Spondylosis without myelopathy or radiculopathy, lumbosacral region (M47.817) Referral Organization [facility] Referring Provider First Name Fabrizio Referring Provider Last Name Emiliano Referring Provider Speciality Pain Medic ine Referred Organization [facility] Referred Provider Fabrizio Cummings Referred Address [address] [place] [address] [address],[place], [place],[address], Referred Provider Specialty Pain Medicin e Referral Priority Routine MEDICATIONS Medication SIG (Take, Route, Frequency, Duration) Notes Start Date End Date Status Ondansetron HCl 4 MG 1 tablet Orally Onc e a day Active Percocet 5-325 MG 1 tablet as needed Orally every 6 hrs Active Cyproheptadine HCl 4 MG 1 tablet Orally Twice a day Active Pramipexole Dihydrochloride 0.25 MG 4 tablet Orally Once a day at bedtime Active Nystatin 113636 UNIT/GM 1 application Externally Twice a day Active Synthroid 200 MCG 1 tablet in the morn ing on an empty stomach Orally Once a day Active HumaLOG 100 UNIT/ML as directed Injection Active Latanoprost 0.005 % 1 drop into affected eye in the evening Ophthalmic Once a day Active Trulicity 1.5 MG/0.5ML as directed Subcutaneous Active Dihydroergotamine Mesylate 1 MG/ML 1 mL every hour as needed Injection Twice a day Active NexIUM 40 MG 1 capsule Orally Onc e a day Active Lipitor 40 MG 1 tablet Orally Once a day Active Docusate Sodium 100 MG 1 capsule as need ed Orally Once a day Active Lisinopril 5 MG 1 tablet Orally Once a day Active Cyclobenzaprine HCl 10 MG 1 tablet at be dtime as needed Orally Once a day Active Lantus 100 UNIT/ML as directed Subcutaneous Active CeleXA 20 MG 1 tablet Orally Once a day Active Metoprolol Succinate 25 MG 1 capsule Ora lly Once a day Active tiZANidine HCl 4 MG 1 tablet as needed Orally at bedtime for 30 days Active Gabapentin 600 MG 1 capsule Orally Thr ee times a day for 30 days Active Toradol Active SOCIAL HISTORY Tobacco Use: Social History Observation Description Date Details (start date - stop date) Never Smoker NA - NA Sex Assigned At : Social History Observation Description Sex Assigned At Unknown Tobacco Use/Smoking: Question Answer Notes Are you a nonsmoker Alcohol Screen Question Answer Notes Did you have a drink containing alcohol in the p ast year? No Points 0 Interpretation Negative PROBLEMS Problem Type ICD Code Onset Dates Problem Status W/U Status Risk SNOMED Code Notes Problem Other chronic pain (G89.29) Active confirmed Chronic pain (65645823) Problem Spondylosis without myelopathy or radiculopathy, lumbosacral region (M47.817) Active confirmed Lumbosacral spondylosis without myelopathy (98491833) Problem Radiculopathy, lumbosacral region (M54.17) Active confirmed Lumbosacral radiculopathy (6282391) Problem Low back pain, unspecified (M54.50) Active confirmed Low back pain (931784947) VITAL SIGNS Blood pressure diastolic 78 mm Hg 10/27/2022 Height 69 in 10/27/2022 Blood pressure systolic 118 mm Hg 10/27/2022 Weight 348.6 lbs 10/27/2022 BMI 51.47 kg/m2 10/27/2022 PROCEDURES Procedure Date Ordered Date Performed Result Body Sit e Intervention: 10/27/2022 10/28/2022 closed order - see not es Intervention: 09/01/2022 09/20/2022 sched 10/07 Encounters Encounter Location Date Provider Diagnosis [facility] [address] [place] [address] [address] [place] [address] 10/05/2022 Fbarizio Cummings [facility] [address] [place] [address] [address] [place] [address] 10/05/2022 Fabrizio Cummings [facility] [address] [place] [address] [address] [place] [address] 10/27/2022 Fabrizio MCDONALD [facility] [address] [place] [address] 11/02/2022 Fabrizio Cummings [facility] [address] [place] [address] [address] [place] [address] 09/20/2022 Reed Barclay [facility] [address] [place] [address] [address] [place] [address] 09/21/2022 Reed Barclay [address] [facility] [address] [place] [address] 09/01/2022 Reed Barclay Other chronic pain G89.29 ; Low back pain, unspecified M54.50 and Radiculopathy, lumbosacral region M54.17 [address] [facility] [address] [place] [address] 10/27/2022 Reed Barclay Other chronic pain G89.29 ; Low back pain, unspecified M54.50 ; Radiculopathy, lumbosacral region M54.17 and Spondylosis without myelopathy or radiculopathy, lumbosacral region M47.817 [address] [facility] [address] [facility] [address] [place] [address] 10/07/2022 Fabrizio Cummings Radiculopathy, lumbosacral region M54.17 ASSESSMENTS Encounter Date Diagnosis Assessment Notes Treatment Notes Treatment Clinical Notes 10/27/2022 Other chronic pain (ICD-10 - G89.29) Laura returns to clinic today for a follow-up evaluation regarding her chronic low back and lower extremity pain. I have reviewed the [facility] database and did not find any inconsistencies. We discussed her current symptoms and medications. I will continue with a treatment plan consisting of conservative treatment at this time. Based on her reported symptoms, and my review of her imaging, I have ordered left and right L4-5, L5-S1 MBBs. This procedure was discussed in clinic and educational materials were provided in clinic. She expressed interest. She will otherwise continue Gabapentin managed through an outside provider. This treatment plan was reviewed with Alea, and she was agreeable. I will continue to monitor her progress, and she will follow up in one month or sooner if needed. Plan:1. Order CESAR L4-5, L5-S1 MBBs 2. Continue Gabapentin 600mg QAM, and 1800mg QHS with outside provider 3. Follow up after the injection Discharge instructions reviewed verbally. Discussed the risks/benefits of prescribed medication. The patient is aware that medication may be discontinued at any time due to poor compliance with visits, and recommended treatment and/or if patient doesn't adhere to the signed pain contract. The patient was instructed to return to the office as scheduled and call with any questions, problems or concerns. 10/07/2022 Radiculopathy, lumbosacral region (ICD-10 - M54.17) 09/01/2022 Other chronic pain (ICD-10 - G89.29) Laura Quigley) is a 51-year-old female who is presenting with low back and right leg pain. PLAN:- Conservative: None- Medications: Refill gabapentin, tizanidine- Imaging: None- Injections/intervent ions: Order left L5-S1, S1 TFE- Referrals: Alicia Hull for pool therapy Alea will return in six months for further evaluation or sooner if needed. I will continue to monitor her progress, adjusting her treatment plan as needed. The patient was ready to learn and had no apparent learning barriers. Their learning preferences includes listening. The diagnosis and treatment plans were explained and the patient expressed understanding of the content. Discharge instructions reviewed verbally. Discussed the risks/benefits of prescribed medication. The patient was instructed to return to the office as scheduled and call with any questions, problems or concerns. 09/01/2022 Low back pain, unspecified (ICD-10 - M54.50) 10/27/2022 Radiculopathy, lumbosacral region (ICD-10 - M54.17) 10/27/2022 Low back pain, unspecified (ICD-10 - M54.50) 10/27/2022 Spondylosis without myelopathy or radiculopathy, lumbosacral region (ICD-10 - M47.817) 09/01/2022 Radiculopathy, lumbosacral region (ICD-10 - M54.17) 09/01/2022 Other Kelli Castaneda a m serving as a scribe to document services personally performed by Reed Barclay PA-C based upon my observations and the provider's statements to me. All documentation has been reviewed by the aforementioned SRIRAM as well as Fabrizio Cummings MD, prior to being entered into the official medical record. Fabrizio Castaneda MD attest that the above named individual is acting in scribe capacity, has observed Reed Barclay's performance of the services and has documented them in accordance with her direction. The documentation recorded by the scribe accurately reflects the service Reed Barclay PA-C, personally performed and the decisions made by her. 10/27/2022 Other I, Claudio Mitzi lozano, am serving as a scribe to document services personally performed by Reed Barclay PA-C, based upon my observations and the provider's statements to me. All documentation has been reviewed by the aforementioned SRIRAM. I, Reed Barclay PA-C, attest that the above named individual is acting in scribe capacity, has observed my performance of the services and has documented them in accordance with my direction. The documentation recorded by the scribe accurately reflects the service I personally performed and the decisions made during the clinic visit. PLAN OF TREATMENT No Information Insurance Providers Payer Name Payer Address Payer Phone Subscriber Number Group Number Insured Name Patient Relationship to Insured Coverage Start Date Coverage End Date [facility] [employer] [address] [address] [place] [address] [id number] [facility] Laura Madrid Self - patient is the insured [facility] [address] [address] [place], [place] [id number] Laura Madrid Self - patient is the insured MEDICAL (GENERAL) HISTORY Medical History History ICD Code Diabetes Depression Thyroid problems Arthritis Hypertension Migraine Cancer Acid reflux Blood clots Surgical History Surgery Date(Month/Year) Cholecystectomy 1999 Thyroidectomy 2000 cyst removal from left maxillary sinus 2 002 temporal artery biopsy Right Eyebrow/eyelid lift coronary angiogram 2007 Left and Right ankle tendon repair 2002 Left heel surgery 2018 hysterectomy 2014 Esophageal stricture
--- OUTSIDE RECORDS SUMMARY | 2023-08-16 08:14 | XMS_ITS | Encounter Summary ---
Author Name Unknown Organization [facility] Address [address] [place] [address] Care Team Providers Care Screen Vent Binder Name Role Phone Elsewhere, Pcp Primary Care Provider Unavailabl e Reason for Referral * Outpatient (Routine) - Closed Specialty Diagnoses / Procedures Referred By Contac t Referred To Contact Diagnoses Spondylosis Lumbar Without Myelopathy Pain Low Back Unspecified Procedures FL Lumbar Spine Radiofrequency Denervation TX DEST LUMB/SAC FACET JT TX DEST LUMB/SAC FACET JT Amelia English APRN, PACKAGE LINE RELIEF OPERATOR, D.N.P. [address] [place] [address] [facility] Referral ID Status Reason Start Date Expiration Date Visits Re quested Visits Authorized [id number] Closed 03/02/2023 03/01/2024 1 1 ING PRIZER Reason for Visit * Outpatient (Routine) - Closed Specialty Diagnoses / Procedures Referred By Contac t Referred To Contact Diagnoses Spondylosis Lumbar Without Myelopathy Pain Low Back Unspecified Procedures FL Lumbar Spine Radiofrequency Denervation TX DEST LUMB/SAC FACET JT TX DEST LUMB/SAC FACET JT Amelia English APRN, PACKAGE LINE RELIEF OPERATOR, D.N.P. [address] [place] [address] [facility] Referral ID Status Reason Start Date Expiration Date Visits Re quested Visits Authorized [id number] Closed 03/02/2023 03/01/2024 1 1 Encounter Details Date Type Department Care Team (Latest Contact Info) Description 06/15/2023 7:56 AM BOOKING PRIZER - 06/15/2023 11:59 PM [facility] Hospital Encounter Division of Pain Medicine in [place], [place] [address] [place] [address] Amelia Salgado, DANYEL, PACKAGE LINE RELIEF OPERATOR, D.N.P. [address] [place] [address] Spondylosis Lumbar Without Myelopathy; Pain Low Back Unspecified Discharge Disposition: Home or Self Care Social History Tobacco Use Types Packs/Day Years Used Date Smoking Tobacco: Never Passive Smoke Exposure: Current Smokeless Tobacco: Never Tobacco Cessation:Counseling Given: Not Answered Alcohol Use Standard Drinks/Week Comments Not Currently 0 (1 standard drink = 0.6 oz pur e alcohol) Maybe 1-2 drinks a year Humiliation, Afraid, Rape, and Kick questionnair e Answer Date Recorded Within the last year, have y ou been afraid of your partner or ex-partner? No 01/05/2023 Within the last year, have y ou been humiliated or emotionally abused in other ways by your partner or ex-partner? No Within the last year, have y ou been kicked, hit, slapped, or otherwise physically hurt by your partner or ex-partner? No 01/05/2023 Within the last year, have y ou been raped or forced to have any kind of sexual activity by your partner or ex-partner? No 01/05/2023 Social Connection and Isolat ion Panel [NHANES] Answer Date Recorded In a typical week, how many times do you talk on the phone with family, friends, or neighbors? More than three times a week 09/27/2022 How often do you get togethe r with friends or relatives? Once a week 09/27/2022 How often do you attend [facility] or [facility] services? Never 09/27/2022 Do you belong to any clubs o r organizations such as mosque groups, unions, fraternal or athletic groups, or school groups? No 09/27/2022 How often do you attend meet ings of the clubs or organizations you belong to? Never 09/27/2022 Are you , , di vorced, , never , or living with a partner? Never 09/27/2022 AUDIT-C Answer Date Recorded Q1: How often do you have a drink containing alc ohol? Monthly or less 09/27/2022 Q2: How many drinks containi ng alcohol do you have on a typical day when you are drinking? 1 or 2 09/27/2022 Q3: How often do you have si x or more drinks on one occasion? Never 09/27/2022 Overall Financial Resource Strain (CARDIA) Answe r Date Recorded How hard is it for you to pa y for the very basics like food, housing, medical care, and heating? Not hard at all 01/05/2023 [facility] - Occupational Stress Questionnaire Answer Date Recorded Do you feel stress - tense, restless, nervous, or anxious, or unable to sleep at night because your mind is troubled all the time - these days? To some extent 09/27/2022 Exercise Vital Sign Answer Date Recorde d On average, how many days pe r week do you engage in moderate to strenuous exercise (like a brisk walk)? 0 days 09/27/2022 On average, how many minutes do you engage in exercise at this level? 0 min 09/27/2022 Hunger Vital Sign Answer Date Recorded Within the past 12 months, y ou worried that your food would run out before you got the money to buy more. Never true 01/06/20 23 Within the past 12 months, t he food you bought just didn't last and you didn't have money to get more. Never true 01/05/2023 PRAPARE - Transportation Answer Date Re corded In the past 12 months, has l ack of transportation kept you from medical appointments or from getting medications? No 12/16 In the past 12 months, has l ack of transportation kept you from meetings, work, or from getting things needed for daily living? No 01/05/2023 Nutrition Answer Date Recorded Nutrition: EVOO Fat Source No 09/27 On average, how many serving s of fruits and vegetables do you eat per day (serving size is equal to 1 cup or approximately the size of a tennis ball)? 0-1 09/27/2022 Dental Answer Date Recorded Dental: Regular Dentist Yes 09/28/19 Employment Answer Date Recorded Employment status Employed and actively working without restrictions 09/27/2022 Housing Stability Answer Date Recorded What is your living situation today? I have a [facility] place to live 01/05/2023 Education Answer Date Recorded What is the highest level of school you have completed or the highest degree you have received? Associate degree: academic program 09/27/2022 Sex and Gender Information Value Date Recorded Sex Assigned at Female 09/27/2022 11:01 PM CDT Gender Identity Female 09/27/2022 11:01 PM CDT Sexual Orientation Straight 09/27/2022 11 :01 PM CDT documented as of this encounter Last Filed Vital Signs Vital Sign Reading Time Taken Comments Blood Pressure 127/69 06/15/2023 9:25 AM BOOKING PRIZER Pulse 80 06/15/2023 9:25 AM BOOKING PRIZER Temperature 36.6 ??C (97.9 ??F) 06/15/2023 8:43 AM CS T Respiratory Rate 13 06/15/2023 9:25 AM BOOKING PRIZER Oxygen Saturation 97% 06/15/2023 9:25 AM BOOKING PRIZER Inhaled Oxygen Concentration - - Weight - - Height - - Body Mass Index - - documented in this encounter Medications at Time of Discharge Medication Sig Dispensed Refills Start Date End Date acetaminophen (TYLENOL) 500 mg tablet Take 2 tablets by mouth as needed. 0 atorvastatin (LIPITOR) 40 mg tablet Take 40 mg by mouth at bedtime. 0 07/29/2022 blood sugar diagnostic strips (Blood Glucose Test Strips) Test 3 times per day. Contour Next test JUDE ASCE 0 12/20/2021 blood-glucose meter kit Dispense meter, test strips, lancets covered by pt ins. E11.9 NIDDM type II - Test 4 times/day. Reason: High A1C 0 09/01/2020 citalopram (CeleXA) 20 mg tablet Take 30 mg by mouth every morning. 0 12/09/2022 cyclobenzaprine (FLEXERIL) 10 mg tablet Take 10 mg by mouth 3 (three) times a day as needed. 0 09/16/2019 cyproheptadine (PERIACTIN) 4 mg tablet Take 4 mg by mouth as needed. 0 01/01/2021 dihydroergotamine (DHE) 1 mg/mL injection Inject 0.5-1 mg intramuscularly as needed. 0 08/03/2021 esomeprazole (NexIUM) [address] capsule daily. 0 09/22/2022 insulin lispro 100 unit/mL injection 3 (three) times a day. 0 09/02/2022 insulin syringe-needle U-100 0.3 mL 31 gauge x 16 syringe daily. 0 01/28/2020 ketorolac (TORADOL) 60 mg/2 mL intramuscular injection Inject intramuscularly as needed for pain. 0 07/08/2022 lancets Test 4 times per day. 0 09/01/2020 Lantus Solostar U-100 Insulin 100 unit/mL (3 mL) injection 2 (two) times a day. 0 09/04/2022 levothyroxine (SYNTHROID, LEVOTHROID) 200 mcg tablet daily. 0 09/04/2022 lisinopriL (PRINIVIL,ZESTRIL) 5 mg tablet Take 5 mg by mouth daily. 0 09/04/2022 lorata-dine D 10-240 mg per 24 hr tablet Take 1 tablet by mouth at bedtime. 0 09/04/2022 metoprolol succinate (TOPROL-XL) 25 mg 24 hr tablet Take 25 mg by mouth daily. 0 07/06/2022 nystatin (NYSTOP) 100,000 unit/gram powder Apply 1 strip topically as needed. 0 03/09/2021 ondansetron (ZOFRAN) 4 mg tablet as needed. 0 12/07/2020 oxyCODONE-acetaminop hen (PERCOCET) 5-325 mg per tablet Take 1 tablet by mouth as needed. 0 03/18/2022 pramipexole (MIRAPEX) 0.25 mg tablet Take 3-4 Tablets (0.75-1 mg) by mouth at bedtime. 0 09/04/2022 pregabalin (LYRICA) 225 mg capsule Take 1 capsule (225 mg total) by mouth 2 (two) times a day. 60 capsule 3 03/02/2023 pregabalin (LYRICA) 300 mg capsule Take 1 capsule (300 mg total) by mouth 2 (two) times a day. 60 capsule 3 06/14/2023 scopolamine base (TRANSDERM SCOP) 1 mg over [address] 1 patch on the skin every third day as needed. 0 06/03/2022 sodium fluoride-pot nitrate 1.1-5 % paste USE DOCTOR INSTRUCTED 0 10/17/2020 tiZANidine (ZANAFLEX) 4 mg tablet Take 1 tablet (4 mg total) by mouth at bedtime. 90 tablet 3 03/02/2023 UltiCare Pen Needle 31 gauge x 5/16 needle USE FOR ADMINISTERING INSULIN AT HOME 0 08/03/2022 docusate sodium (COLACE) 100 mg capsule Take 3 capsules by mouth daily. 0 07/13/2019 07/24/2023 documented as of this encounter Procedure Notes * Sarah Cararnza M.D. - 06/15/2023 9:00 AM CSTAssociated Order(s): FL Lumbar Spine Radiofrequency Denervation Pre-Procedure Diagnose(s): Spondylosis Lumbar Without Myelopathy; Pain Low Back Unspecified Post-Procedure Diagnose(s): Spondylosis Lumbar Without Myelopathy; Pain Low Back Unspecified FL Lumbar Spine Radiofrequency Denervation Performed by: Sarah Carranza M.D. Authorized by: Amelia Salgado APRN, PACKAGE LINE RELIEF OPERATOR, D.N.P. Care team members present 1. Zaki Carmona D.O. 2. Brie Estes, L.P.N. PROCEDURE SUMMARY Indications: Spondylosis without myelopathy Pre-procedural pain: 09/23 Site: lumbar Lumbar: medial branch radiofrequency Radiofrequency ablation of the Right L4-L5 and Right L5-S1 facet joints Double burn: yes RFA needles were rotated 90 degrees Needle or RF cannula: RF cannula RF cannula size: 18 G RF cannula length: 145 mm Flow: not applicable Patient position: prone IMAGING Fluoroscopic image guidance used to localize target, identify at risk structures, and dynamically used to direct therapy to the target. Image(s) acquired and saved. SEDATION MEDICATIONS Midazolam (mg): 2 Fentanyl (mcg): 50 INJECTED MEDICATIONS The injected medication(s) listed was divided equally between the identified injection location(s) Total volume of injectate (mL): 9 Total steroid in injectate (mg): 0 6 mL BUPivacaine 0.5 % (5 mg/mL) 3 mL lidocaine 20 mg/mL PROCEDURE DETAILS Radiofrequency ablation - lumbar: Using fluoroscopy, the junction of the transverse process and superior articulating process of the appropriate levels were identified and marked. Using fluoroscopic guidance, the RF cannula was advanced to each target. This was confirmed using PA, lateral and oblique fluoroscopic views. Motor testing was performed at 2Hz up 3.0 volts, and the measured tissue impedances were satisfactory. With final needle positioning, there was no evidence of radicular stimulation. Prior to lesioning, 1 ml of local anesthetic was injected at each site. Lesioning was performedat 80 degrees Celsius for 90 seconds. After RF treatment, each site received local anesthetic and the needles were withdrawn from the skin. The patient tolerated the procedure well and there were no apparent complications. After appropriate observation, the patient was dismissed from the clinic in good condition under their own power. CONSENT Consent obtained: written (Risks, benefits and alternatives were discussed and a written Informed Consent was obtained. Please see Informed Consent form for further details.) UNIVERSAL PROTOCOL All relevant documentation and testing were reviewed and available. All required blood products, implants, devices and or special equipment were made available as applicable. Pre-procedure verification was conducted and the correct site was marked if required. A fire risk assessment was done as applicable. The procedural time-out to verify correct patient, correct side/site, and procedure was conducted prior to performing the procedure and confirmed in a procedural pause. PRE-PROCEDURE DETAILS Procedure purpose: therapeutic Appropriate hand hygiene, gown, cap, mask, protective eyewear, sterile gloves, skin preparation, sterile drape, and strict aseptic technique were utilized as applicable for the procedure: yes Site preparation: chlorhexidine SEDATION / ANESTHESIA Anesthesia method: local infiltration and moderate sedation Local infiltrate type: lidocaine I completed the presedation assessment form and supervised the sedation. Planned sedation level achieved: yes Present during sedation (intra-service time). A trained independent observer (e.g. RN) assisted with monitoring the patient's level of consciousness and physiological status throughout the procedure (see nursing documentation). ATTESTATION STATEMENT A resident or fellow participated in the procedure, and the sap business objects consultant was present for the entire procedure. OPERATIVE NOTE INFORMATION Specimens: 0 Drains: 0 Estimated blood loss: 0 Implants: 0 ING PRIZER documented in this encounter Plan of Treatment Upcoming Encounters Date Type Department Care Team (Late st Contact Info) Description 09/19/2023 9:00 AM BOOKING PRIZER Telemedicine Division of Pain Medicine in [place], [place] [address] [place] [phone] Carey Hinkle APRN, BHANU, M.S. [address] [place] [phone] documented as of this encounter Procedures Procedure Name Priority Date/Time Associated Diagnosis Comments FL LUMBAR SPINE RADIOFREQUENCY DENERVATION Routine 06/15/2023 9:08 AM BOOKING PRIZER Spondylosis Lumbar Without Myelopathy Pain Low Back Unspecified documented in this encounter Results * FL Lumbar Spine Radiofrequency Denervation (06/15/2023 9:08 AM BOOKING PRIZER) Narrative MMODAL - 06/15/2023 9:00 AM BOOKING PRIZER Sarah Carranza M.D. ? 06/15/2023 ??9:26 AM FL Lumbar Spine Radiofrequency Denervation Performed by: Sarah Carranza M.D. Authorized by: Amelia Salgado APRN, CNS, D.N.P. ?? Care team members present 1. Zaki Carmona D.O. 2. Brie Estes L.P.N. PROCEDURE SUMMARY Indications: Spondylosis without myelopathy Pre-procedural pain: 09/23 Site: lumbar Lumbar: medial branch radiofrequency Radiofrequency ablation of the Right L4-L5 and Right L5-S1 facet joints Double burn: yes RFA needles were rotated 90 degrees Needle or RF cannula: RF cannula RF cannula size: 18 G RF cannula length: 145 mm Flow: not applicable Patient position: prone IMAGING Fluoroscopic image guidance used to localize target, identify at risk structures, and dynamically used to direct therapy to the target. Image(s) acquired and saved. SEDATION MEDICATIONS Midazolam (mg): 2 Fentanyl (mcg): 50 INJECTED MEDICATIONS The injected medication(s) listed was divided equally between the identified injection location(s) Total volume of injectate (mL): 9 Total steroid in injectate (mg): 0 ?? 6 mL BUPivacaine 0.5 % (5 mg/mL) 3 mL lidocaine 20 mg/mL PROCEDURE DETAILS ?? Radiofrequency ablation - lumbar: Using fluoroscopy, the junction of the transverse process and superior articulating process of the appropriate levels were identified and marked. Using fluoroscopic guidance, the RF cannula was advanced to each target. This was confirmed using PA, lateral and oblique fluoroscopic views. Motor testing was performed at 2Hz up 3.0 volts, and the measured tissue impedances were satisfactory. With final needle positioning, there was no evidence of radicular stimulation. Prior to lesioning, 1 ml of local anesthetic was injected at each site. Lesioning was performed at 80 degrees Celsius for 90 seconds. After RF treatment, each site received local anesthetic and the needles were withdrawn from the skin. The patient tolerated the procedure well and there were no apparent complications. After appropriate observation, the patient was dismissed from the clinic in good condition under their own power. ? CONSENT Consent obtained: written (Risks, benefits and alternatives were discussed and a written Informed Consent was obtained. Please see Informed Consent form for further details.) UNIVERSAL PROTOCOL All relevant documentation and testing were reviewed and available. All required blood products, implants, devices and or special equipment were made available as applicable. Pre-procedure verification was conducted and the correct site was marked if required. A fire risk assessment was done as applicable. The procedural time-out to verify correct patient, correct side/site, and procedure was conducted prior to performing the procedure and confirmed in a procedural pause. PRE-PROCEDURE DETAILS Procedure purpose: therapeutic Appropriate hand hygiene, gown, cap, mask, protective eyewear, sterile gloves, skin preparation, sterile drape, and strict aseptic technique were utilized as applicable for the procedure: yes ?? Site preparation: chlorhexidine SEDATION / ANESTHESIA Anesthesia method: local infiltration and moderate sedation Local infiltrate type: lidocaine I completed the presedation assessment form and supervised the sedation. Planned sedation level achieved: yes ?? Present during sedation (intra-service time). A trained independent observer (e.g. RN) assisted with monitoring the patient's level of consciousness and physiological status throughout the procedure (see nursing documentation). ATTESTATION STATEMENT A resident or fellow participated in the procedure, and the sap business objects consultant was present for the entire procedure. OPERATIVE NOTE INFORMATION Specimens: 0 Drains: 0 Estimated blood loss: 0 Implants: 0 BHANU Paul APRN, BorisNShamikaPShamika FLUOR O GUIDED PAIN PROCEDURES MMODAL NA documented in this encounter Visit Diagnoses Diagnosis Spondylosis Lumbar Without Myelopathy Pain Low Back Unspecified documented in this encounter Administered Medications Inactive Administered Medications - up to 3 most recent administrations Medication Order MAR Action Action Date Dose Rate Site BUPivacaine 0.5 % (5 mg/mL) injection 6 mL (MARCAINE) 6 mL, injection, One-Time Injection, Starting on Ladonna 06/15/23 at 0900, For 1 dose Given 06/15/2023 9:00 AM BOOKING PRIZER 6 mL fentaNYL injection (SUBLIMAZE) intravenous, As needed, Starting on Ladonna 06/15/23 at 0855, Intra-Op Given 06/15/2023 8:55 AM BOOKING PRIZER 50 mcg lidocaine 20 mg/mL injection 3 mL (XYLOCAINE) 3 mL, injection, One-Time Injection, Starting on Ladonna 06/15/23 at 0900, For 1 dose Given 06/15/2023 9:00 AM BOOKING PRIZER 3 mL midazolam (PF) injection (VERSED) As needed, Starting on Ladonna 06/15/23 at 0855, Intra-Op Given 06/15/2023 8:55 AM BOOKING PRIZER 2 mg documented in this encounter Care Teams Screen Vent Binder Relationship Specialty Start Date End Date Elsewhere, Pcp PCP - General Internal Medicine 09/30/22 documented as of this encounter
--- OUTSIDE RECORDS SUMMARY | 2023-08-16 08:14 | XMS_ITS | Encounter Summary ---
Author Name Unknown Organization [facility] Address [address] [place] [address] Care Team Providers Care Security Incident Response Specialist Name Role Phone Elsewhere, Pcp Primary Care Provider Unavailabl e Reason for Visit * Reason Onset Date Comments Pre-visit Intake 06/12/2023 Encounter Details Date Type Department Care Team (Latest Contact Info) Description 06/12/2023 1:00 PM WAREHOUSE ORDER SELECTOR Clinical Communication Virtual Review in [place], [place] [address] [place] [address] Pre-visit Intake Social History Tobacco Use Types Packs/Day Years Used Date Smoking Tobacco: Never Passive Smoke Exposure: Current Smokeless Tobacco: Never Alcohol Use Standard Drinks/Week Comments Not Currently [...] week 09/27/2022 How often do you attend chur or jewish services? Never 09/27/2022 Do you belong to any clubs o r organizations such as voodoo groups, unions, fraternal or athletic groups, or [...] and heating? Not hard at all 01/05/2023 [facility] - [...] money to buy more. Never true 01/06/20 Within the past 12 months, t he [...] your living situation today? I have a [facility] place to live 01/05/2023 Education Answer [...] PM CDT documented as of this encounter Plan of Treatment Upcoming Encounters Date Type Department Care Team (Late st Contact Info) Description 09/19/2023 9:00 AM WAREHOUSE ORDER SELECTOR Telemedicine Division of Pain Medicine in [place], [place] [address] [place] [address] Carey Hinkle APRN, TALENT ACQUISITION ASSISTANT, M.S. [address] [place] [address] documented as of this encounter Visit Diagnoses Not on filedocumented in this encounter Care Teams Security Incident Response Specialist Relationship Specialty Start Date End Date Elsewhere, Pcp PCP - General Internal Medicine 09/30/22 documented as of this encounter
--- OUTSIDE RECORDS SUMMARY | 2023-08-16 08:14 | XMS_ITS | Encounter Summary ---
Author Name Unknown Organization [facility] Address [address] [place] [address] Care Team Providers Care Pharmacometrician Name Role Phone Elsewhere, Pcp Primary Care Provider Unavailabl e Reason for Referral * Outpatient (Routine) - Closed Specialty Diagnoses / Procedures Referred By Contac t Referred To Contact Diagnoses Neuropathy Peripheral Procedures EMG Delphine Petit M.D. [address] [place] [address] [facility] Referral ID Status Reason Start Date Expiration Date Visits Re quested Visits Authorized [id number] Closed 03/23/2023 03/22/2024 1 1 Reason for Visit * Outpatient (Routine) - Closed Specialty Diagnoses / Procedures Referred By Contac t Referred To Contact Diagnoses Neuropathy Peripheral Procedures EMG Delphine Petit M.D. [address] [place] [address] [facility] Referral ID Status Reason Start Date Expiration Date Visits Re quested Visits Authorized [id number] Closed 03/23/2023 03/22/2024 1 1 Encounter Details Date Type Department Care Team (Latest Contact Info) Description 04/19/2023 7:27 AM CDT - 04/19/2023 11:59 PM CDT Hospital Encounter Department of Neurology in [place], [place] [address] [place] [phone] Delphine Petit M.D. [address] [place] [address] Neuropathy Peripheral Discharge Disposition: Home or Self Care Social [...] 09/27/2022 How often do you attend chur ch or latter day services? Never 09/27/2022 Do you belong to any clubs o r organizations such as jewish groups, unions, fraternal or athletic groups, or [...] and heating? Not hard at all 01/05/2023 [facility] of Occupat ional Health - Occupational Stress [...] your living situation today? I have a [facility] place to live 01/05/2023 Education Answer Date [...] PM CDT documented as of this encounter Medications at Time of Discharge [...] times a day. 60 capsule 3 03/02/2023 scopolamine base (TRANSDERM SCOP) 1 mg over [...] FOR ADMINISTERING INSULIN AT HOME 0 08/03/2022 albuterol 2.5 mg /3 mL nebulizer solution as needed. 0 07/08/2022 06/14/2023 docusate sodium (COLACE) 100 mg capsule Take 3 capsules by mouth daily. 0 07/13/2019 07/24/2023 dulaglutide (TRULICITY) 4.5 mg/0.5 mL injection Inject under the skin once a week. Saturdays 0 09/22/2022 fluconazole (DIFLUCAN) 150 mg tablet as needed. 0 10/31/2019 06/14/2023 gabapentin (NEURONTIN) 300 mg capsuleIndications:M yofascial Pain Syndrome,Radiculopat hy,Neuropathy Peripheral Take 1 capsule (300 mg total) by mouth 3 (three) times a day. Add one pill in the morning, increase weekly for maximum dose 900 mg in the morning and 1800 mg at night. 90 capsule 3 10/04/2022 06/14/2023 gabapentin (NEURONTIN) 600 mg tabletIndications:Ne uropathy Peripheral,Radiculop athy,Myofascial Pain Syndrome Take 1 tablet (600 mg total) by mouth 3 (three) times a day. 120 tablet 3 01/12/2023 06/14/2023 naproxen (NAPROSYN) 500 mg tablet Take 1 tablet by mouth every 12 (twelve) hours as needed for mild pain or score 1-3 of 10. 0 12/22/2022 06/14/2023 documented as of this encounter Plan of Treatment Upcoming Encounters Date Type Department Care Team (Late st Contact Info) Description 09/19/2023 9:00 AM DIABETES NURSE Telemedicine Division of Pain Medicine in [place], [place] [address] [place] [phone] Carey Hinkle, DANYEL, RADIO FREQUENCY ENGINEER, M.S. [address] [place] [address] documented as of this encounter Procedures Procedure Name Priority Date/Time Associated Diagnosis Comments EMG Routine 04/19/2023 7:27 AM CDT Neuropathy Peripheral documented in this encounter Results * EMG (04/19/2023 7:27 AM CDT) 04/19/2023 8:45 AM CDT Narrative EMG - 04/19/2023 9:03 AM CDT Table formatting from the original result was not included. 19-Apr-2023 ? Electromyography ? Final Report Study Number: 1 EMG Supervisor Central Supply: Chong Perez 127 or [phone] Referred by: DELPHINE PETIT (127 or [phone]) Referred for: left leg radic Referral Code: ?022 RX: 341 ??200 SUMMARY: Prior to starting the procedure, the patient's identity was verified, pertinent available records were reviewed, the nature of the procedure was explained, the appropriate sites of the exam were confirmed directly with the patient, and a pre-procedure pause was performed for final verification of all of the above. ?? Nerve conduction studies of the left lower limb revealed absent or low-amplitude motor and sensory responses with mild motor conduction velocity slowing. Nerve conduction studies of the left upper limb were normal. ??Needle EMG of the left lower limb revealed profuse fibrillation potentials in the medial gastrocnemius muscle without accompanying motor unit potential changes or reduced recruitment (though full activation was difficult). ??More proximal lower limb and lumbosacral paraspinal muscles were normal. CLINICAL INTERPRETATION: Abnormal study. ??Given the clinical context, the electrodiagnostic findings could be consistent with an acute left S1 radiculopathy. ??There may also be a mild underlying chronic, length-dependent, axonal peripheral neuropathy. A. Yury Hanson (127 or [phone])/SMB NERVE CONDUCTIONS ??Record Rep ?? Normal ??Normal Distal Normal F-Wave F-Wave Temp Nerve Type Site Stim Side Amp Amp CV CV Lat Lat Lat Est (??C) Fibular Motor EDB ??L 1.1 (> 2.0) 38 (> 41) 3.9 (< 6.6) ?? 29.4 Tibial Motor AH ??L 3.0 (> 4.0) 37 (> 40) 4.2 (< 6.1) 55.7 66.4 29.6 Sural Sensory Ankle ??L NR (> 6.0) ??(> 40) NR (< 4.5) ?? 29.4 Ulnar Motor ADM ??L 11.8 (> 6.0) 63 (> 51) 2.6 (< 3.6) 27.3 22.4 31.1 Median Sensory Dig II ??L 35 (> 15.0) 71 (> 56) 3.2 (< 3.6) ?? 29.2 NEEDLE EMG ??Ins Spont ??MUP ??Recruitment ??Duration ??Amplitude ??Phases ?? Muscle Side Act Fib Fasc Normal Activ Reduced Rapid Long Short High Low % Turns Lumbar paraspinal (lower) L NL 0 0 NL ? S1 paraspinal L NL 0 0 NL ? Gluteus edel L NL 0 0 NL ? Tensor fasciae latae L NL 0 0 NL ? Biceps femoris (long head) L NL 0 0 NL ? Vastus medialis L NL 0 0 NL ? Gastrocnemius (medial head) L INC +++ 0 NL ? Tibialis anterior L NL 0 0 NL ? This interpretation has been electronically signed: Chong Perez M.D., M.H.P.E. at 04/19/2023 9:02:38 AM CDT Procedure Note Chong Perez M.D., M.H.P.E. - 04/19/2023 19-Apr-2023 Electromyography Final Report Study Number: 1 EMG Supervisor Central Supply: Chong Perez 127 or [phone] Referred by: DELPHINE PETIT (127 or [phone]) Referred for: left leg radic Referral Code: 022 RX: 341 200 SUMMARY: Prior to starting the procedure, the patient's identity wasverified, pertinent available records were reviewed, the nature of the procedure was explained, theappropriate sites of the exam were confirmed directly with the patient, and a pre-procedure pausewas performed for final verification of all of the above. Nerve conduction studies of the left lower limb revealed absent or low-amplitude motor and sensory responses with mildmotor conduction velocity slowing. Nerve conduction studies of the left upper limb were normal.Needle EMG of the left lower limb revealed profuse fibrillation potentials in the medialgastrocnemius muscle without accompanying motor unit potential changes or reduced recruitment (thoughfull activation was difficult). More proximal lower limb and lumbosacral paraspinal muscleswere normal. CLINICAL INTERPRETATION: Abnormal study. Given the clinical context, theelectrodiagnostic findings could be consistent with an acute left S1 radiculopathy. Theremay also be a mild underlying chronic, length-dependent, axonal peripheral neuropathy. A. Yury Hanson (127 or [phone])/SMB NERVE CONDUCTIONS Record Rep Normal Normal Distal Normal F-Wave F-Wave Temp Nerve Type Site Stim Side Amp Amp CV CV Lat Lat Lat Est (??C) Fibular Motor EDB L 1.1 (> 2.0) 38 (> 41) 3.9 (< 6.6) 29.4 Tibial Motor AH L 3.0 (> 4.0) 37 (> 40) 4.2 (< 6.1) 55.7 66.4 29.6 Sural Sensory Ankle L NR (> 6.0) (> 40) NR (< 4.5) 29.4 Ulnar Motor ADM L 11.8 (> 6.0) 63 (> 51) 2.6 (< 3.6) 27.3 22.4 31.1 Median Sensory Dig II L 35 (> 15.0) 71 (> 56) 3.2 (< 3.6) 29.2 NEEDLE EMG Ins Spont MUP Recruitment Duration Amplitude Phases Muscle Side Act Fib Fasc Normal Activ Reduced Rapid Long Short High Low %Turns Lumbar paraspinal (lower) L NL 0 0 NL S1 paraspinal L NL 0 0 NL Gluteus edel L NL 0 0 NL Tensor fasciae latae L NL 0 0 NL Biceps femoris (long head) L NL 0 0 NL Vastus medialis L NL 0 0 NL Gastrocnemius (medial head) L INC +++ 0 NL Tibialis anterior L NL 0 0 NL This interpretation has been electronically signed: Chong Perez M.D., M.H.P.E. at 04/19/2023 9:02:38 AM CDT Delphine Petit M.D. NEUROLOGY ORDER DANY EMG documented in this encounter Visit Diagnoses Diagnosis Neuropathy Peripheral documented in this encounter Care Teams Pharmacometrician Relationship Specialty Start Date End Date Elsewhere, Pcp PCP - General Internal Medicine 09/30/22 documented as of this encounter
--- OUTSIDE RECORDS SUMMARY | 2023-08-16 08:14 | XMS_ITS | Referral Summary ---
Author Name Unknown Organization [facility] Address [address] [place] [address] Care Team Providers Care Oven Drier Tender Name Role Phone Elsewhere, Pcp Primary Care Provider Unavailabl e Source Comments Patient records contain information from all sites at [facility]. For routine questions regarding patient records, call [phone] during business hours, M-F 8:00 AM - 5:00 PM Central Time. Record requests for emergency care only can be directed to [phone] at any time.[facility] Encounters Date Type Department Care Team Description 07/24/2023 10:45 AM CORK WIRER Procedure visit Division of Pain Medicine in [place], [place] [address] [place] [address] Courtney Sandhu APRN, C.N.P., M.S.N. Pain Low Back Unspecified; Pain Buttock; Pain Myofascial 06/15/2023 7:56 AM CORK WIRER - 06/15/2023 11:59 PM CORK WIRER Hospital Encounter Division of Pain Medicine in [place], [place] [address] [place] [address] Amelia Salgado APRN, DRAFTER ASSISTANT, D.N.P. Spondylosis Lumbar Without Myelopathy; Pain Low Back Unspecified Discharge Disposition: Home or Self Care 06/14/2023 12:11 PM CORK WIRER - 06/14/2023 11:59 PM CORK WIRER Hospital Encounter Division of Pain Medicine in [place], [place] [address] [place] [phone] Amelia Salgado APRN, BHANU, D.N.P. Spondylosis Lumbar Without Myelopathy; Pain Low Back Unspecified Discharge Disposition: Home or Self Care 06/14/2023 11:30 AM CORK WIRER Office Visit Division of Pain Medicine in [place], [place] [address] [place] [phone] Amelia Salgado APRN, BHANU, D.N.P. Pain Low Back Unspecified (Primary Dx); Pain Buttock; Pain Myofascial; Spondylosis Lumbar Without Myelopathy; Neuropathy Peripheral; Myofascial Pain Syndrome 06/12/2023 1:00 PM CORK WIRER Clinical Communication Virtual Review in [place], [place] [address] [place] [address] Pre-visit Intake from Last 3 Months Allergies Active Allergy Reactions Criticality Noted Date Comments Cefprozil Hives (Reselect Reaction) High 12/25/2006 Erythromycin Diarrhea,GI intolerance Medium 12/25/2006 Iodine Nausea And Vomiting,Other (see comments),Angioedema (Reselect Reaction),Edema (Reselect Reaction) High 12/25/2006 Used for thyroid After radioiodine; developed facial swelling and nausea/vomiting. Facial swelling started 24 hours after dose, started vomiting after 48 hours.Topical betadine ok. ??I-131 dye only Isosorbide Mononitrate Rash 06/22/2018 Latex Hives (Reselect Reaction) High 11/26/2008 As child had hives due to backing on carpeting..no other exposure issues. Levofloxacin Diarrhea,GI intolerance Medium 12/25/2006 Medications Medication Sig Dispensed Refills Start Date End Date Status insulin syringe-needle U-100 0.3 mL 31 gauge x 5/16 syringe daily. 0 01/28/20 20 Active sodium fluoride-pot nitrate 1.1-5 % paste USE DOCTOR INSTRUCTED 0 10/18/19 21 Active scopolamine base (TRANSDERM SCOP) 1 mg over [address] 1 patch on the skin every third day as needed. 0 06/03/20 22 Active acetaminophen (TYLENOL) 500 mg tablet Take 2 tablets by mouth as needed. 0 Active atorvastatin (LIPITOR) 40 mg tablet Take 40 mg by mouth at bedtime. 0 07/29/19 23 Active blood sugar diagnostic strips (Blood Glucose Test Strips) Test 3 times per day. Contour Next test JUDE ASCE 0 12/21/19 22 Active blood-glucose meter kit Dispense meter, test strips, lancets covered by pt ins. E11.9 NIDDM type II - Test 4 times/day. Reason: High A1C 0 09/01/19 21 Active cyclobenzaprine (FLEXERIL) 10 mg tablet Take 10 mg by mouth 3 (three) times a day as needed. 0 09/16/19 20 Active cyproheptadine (PERIACTIN) 4 mg tablet Take 4 mg by mouth as needed. 0 01/02/20 21 Active dihydroergotamine (DHE) 1 mg/mL injection Inject 0.5-1 mg intramuscularly as needed. 0 08/03/19 22 Active esomeprazole (NexIUM) [address] capsule daily. 0 09/23/19 23 Active Lantus Solostar U-100 Insulin 100 unit/mL (3 mL) injection 2 (two) times a day. 0 09/04/19 23 Active insulin lispro 100 unit/mL injection 3 (three) times a day. 0 09/02/19 23 Active ketorolac (TORADOL) 60 mg/2 mL intramuscular injection Inject intramuscularly as needed for pain. 0 07/08/20 22 Active lancets Test 4 times per day. 0 09/01/19 21 Active levothyroxine (SYNTHROID, LEVOTHROID) 200 mcg tablet daily. 0 09/04/19 23 Active lisinopriL (PRINIVIL,ZESTRIL ) 5 mg tablet Take 5 mg by mouth daily. 0 09/04/19 23 Active lorata-dine D 10-240 mg per 24 hr tablet Take 1 tablet by mouth at bedtime. 0 09/04/19 23 Active metoprolol succinate (TOPROL-XL) 25 mg 24 hr tablet Take 25 mg by mouth daily. 0 07/06/20 22 Active nystatin (NYSTOP) 100,000 unit/gram powder Apply 1 strip topically as needed. 0 03/09/20 21 Active ondansetron (ZOFRAN) 4 mg tablet as needed. 0 12/08/19 21 Active oxyCODONE-acetami nophen (PERCOCET) 5-325 mg per tablet Take 1 tablet by mouth as needed. 0 03/18/20 22 Active UltiCare Pen Needle 31 gauge x 5/16 needle USE FOR ADMINISTERING INSULIN AT HOME 0 08/03/19 23 Active pramipexole (MIRAPEX) 0.25 mg tablet Take 3-4 Tablets (0.75-1 mg) by mouth at bedtime. 0 09/04/19 23 Active citalopram (CeleXA) 20 mg tablet Take 30 mg by mouth every morning. 0 12/10/19 23 Active tiZANidine (ZANAFLEX) 4 mg tablet Take 1 tablet (4 mg total) by mouth at bedtime. 90 tablet 3 03/02/20 23 Active pregabalin (LYRICA) 225 mg capsule Take 1 capsule (225 mg total) by mouth 2 (two) times a day. 60 capsule 3 03/02/20 23 Active Additional Information Patient not taking.Reported on 07/24/2023 pregabalin (LYRICA) 300 mg capsule Take 1 capsule (300 mg total) by mouth 2 (two) times a day. 60 capsule 3 06/14/20 23 Active Trulicity 4.5 mg/0.5 mL injection Inject 4.5 mg under the skin once a week. 0 07/10/20 23 Active polyethylene glycol (Miralax) 17 gram/dose oral powder Take 17 g by mouth daily. 0 06/19/20 23 Active ketorolac (TORADOL) 60 mg/2 mL injection Inject 60 mg intramuscularly daily as needed for pain (For migraines). 0 Active docusate sodium (COLACE) 100 mg capsule Take 3 capsules by mouth daily. 0 07/13/20 19 024 Discontinued Hospital, Clinic, or Other Facility Administered Medication Ordered Dose Route Frequency Start Date End Date Status lactated ringersIndications:Spondylos is Lumbar Without Myelopathy 20 mL/hr IV Continuous 12/02/2022 Active lactated ringersIndications:Spondylos is Lumbar Without Myelopathy 20 mL/hr IV Continuous 12/05/2022 Active Social History Tobacco Use Types Packs/Day Years [...] How often do you attend chur or sabianist services? Never 09/27/2022 Do you belong to any clubs o r organizations such as zoroastrianism groups, unions, fraternal or athletic groups, or [...] and heating? Not hard at all 01/05/2023 [facility] [place] of Occupat ional Health - Occupational Stress [...] your living situation today? I have a [facility] place to live 01/05/2023 Education Answer Date Recorded What is the highest level of school you have completed or the highest degree you have received? Associate degree: academic program 09/27/2022 Sex and Gender Information Value Date Recorded Sex Assigned at Female 09/27/2022 11:01 PM CDT Gender Identity Female 09/27/2022 11:01 PM CDT Sexual Orientation Straight 09/27/2022 11 :01 PM CDT Last Filed Vital Signs Vital Sign Reading Time Taken Comments Blood Pressure 127/69 06/15/2023 9:25 AM CORK WIRER Pulse 80 06/15/2023 9:25 AM CORK WIRER Temperature 36.6 ??C (97.9 ??F) 06/15/2023 8:43 AM CS T Respiratory Rate 13 06/15/2023 9:25 AM CORK WIRER Oxygen Saturation 97% 06/15/2023 9:25 AM CORK WIRER Inhaled Oxygen Concentration - - Weight 157 kg (346 lb 12.5 oz) 10/04/2022 9:10 A M CDT Height 175.5 cm (5' 9.09) 10/04/2022 9:10 AM CD T Body Mass Index 51.07 10/04/2022 9:10 AM CDT Plan of Treatment Upcoming Encounters Date Type Department Care Team (Late st Contact Info) Description 09/19/2023 9:00 AM CORK WIRER Telemedicine Division of Pain Medicine in [place], [place] [address] [place] [phone] Carey Hinkle APRN, DRAFTER ASSISTANT, M.S. [address] [place] [phone] Procedures Procedure Name Priority Date/Time Associated Diagnosis Comments LA INJ TRIGGER PNT<=2 MUS Routine 07/24/2023 10:45 AM CORK WIRER Pain Low Back Unspecified Pain Buttock Pain Myofascial FL LUMBAR SPINE RADIOFREQUENCY DENERVATION Routine 06/15/2023 9:08 AM CORK WIRER Spondylosis Lumbar Without Myelopathy Pain Low Back Unspecified FL LUMBAR SPINE RADIOFREQUENCY DENERVATION Routine 06/14/2023 2:25 PM CORK WIRER Spondylosis Lumbar Without Myelopathy Pain Low Back Unspecified from Last 3 Months Results * LA INJ TRIGGER PNT<=2 MUS (07/24/2023 10:45 AM CORK WIRER) Narrative [facility] - 07/24/2023 10:45 AM CORK WIRER Courtney Sandhu APRN, C.N.P., M.S.N. ? 07/24/2023 11:56 AM PM Trigger point injection (left PSIS and right PSIS) Performed by: Courtney Sandhu APRN, C.N.P., M.S.N. Authorized by: Amelia Salgado APRN, BHANU, D.N.P. ?? Care team members present 1. Courtney Sandhu APRN, C.N.P., M.S.N. 2. Robert Gibbons M.D. PROCEDURE SUMMARY ?? Indication: Low back pain Pre procedure pain score: 5/10 Soft tissue site: left PSIS and right PSIS PSIS: PSIS position: prone Needle size: 25 G Needle length: 2.5 in Number of muscles injected: 1 or 2 muscles INJECTED MEDICATIONS The injected medication(s) listed was divided equally between the identified injection location(s) ?? Total volume of injectate (mL): ??10 Total steroid in injectate (mg): ??40 ?? 4 mL BUPivacaine 0.5 % (5 mg/mL) 5 mL lidocaine 20 mg/mL 40 mg triamcinolone acetonide 40 mg/mL PROCEDURE DETAILS PSIS procedure description: The patient was placed in the appropriate position. ??Prior to the procedure, the appropriate PSIS was examined to determine the optimal needle placement. Thereafter, a needle was advanced into the tissue overlying the PSIS. After visualization of the tip and negative aspiration for blood, the medication was injected into the area surrounding the PSIS. Following the injection, the needle was withdrawn. ?? The patient tolerated the procedure well and there were no apparent complications. ??After an appropriate amount of observation, the patient was dismissed from the clinic in good condition under their own power. ?? Complications: no apparent complications ?? Comments Verbal consent obtained as patient was already positioned prone on table. Witnessed by Dr. Gibbons and patient's mother. Two sites - bilateral PSIS area, 5 cc per site. CONSENT Consent obtained: verbal Consent given by: patient (Witness by Dr. Gibbons and patient's mother) The benefits, risks and alternatives to the procedure and the potential need for sedation or anesthesia as well as the names, roles, and responsibilities of healthcare team members performing significant interventional tasks were discussed with the patient and/or decision maker. UNIVERSAL PROTOCOL All relevant documentation and testing [...] confirmed in a procedural pause. PRE-PROCEDURE DETAILS Appropriate hand hygiene, gown, cap, mask, protective eyewear, sterile gloves, skin preparation, sterile drape, and strict aseptic technique were utilized as applicable for the procedure. ?? Skin preparation: ??Chlorhexidine SEDATION / ANESTHESIA Anesthesia method: none ATTESTATION STATEMENT A resident or fellow participated in the procedure, and the direct sales consultant was present for the entire procedure. OPERATIVE NOTE INFORMATION Specimens: 0 Drains: 0 Estimated blood loss: 0 Implants: 0 BHANU Paul APRN, Amilcar.N.P. PROCE DURE/MINOR SURGICAL ORDERABLES [facility] NA * IA Lumbar Spine Radiofrequency Denervation (06/15/2023 9:08 AM CORK WIRER) Only the most recent of2 resultswithin the time period is included. Narrative [facility] - 06/15/2023 9:00 AM CORK WIRER Sarah Carranza M.D. ? 06/15/2023 ??9:26 AM [place] Lumbar Spine Radiofrequency Denervation Performed by: Sarah [...] fellow participated in the procedure, and the direct sales consultant was present for the entire procedure. OPERATIVE NOTE INFORMATION Specimens: 0 Drains: 0 Estimated blood loss: 0 Implants: 0 BHANU Paul APRN, D.N.P. FLUOR O GUIDED PAIN PROCEDURES [facility] NA from Last 3 Months Advance Directives For more information, please contact: [phone] Documents on File Type Date Recorded Patient Lan Analyst Expl anation Advance Directives 10/05/2022 8:01 PM Arlen Jenkins Kathe Rincon HCPOA/ADVOCATE/AGENT/R EPRESENTATIVE/SURROGAT E Healthcare Agents on File Name Relationship Healthcare Agent Relationship Communication Arlen [place] Mother Health Care Agent [email or web address] [place] Brother First Alternate Health Care Agent Elena Rincon Friend Second Alternate Health Care Agent Care Teams Oven Drier Tender Relationship Specialty Start Date End Date Elsewhere, Pcp PCP - General Internal Medicine 09/30/22
--- OUTSIDE RECORDS SUMMARY | 2023-08-16 08:14 | XMS_ITS | Encounter Summary ---
Author Name Unknown Organization [facility] Address [address] [place] [address] Care Team Providers Care Undercutter Operator Name Role Phone Elsewhere, Pcp Primary Care Provider Unavailabl e Reason for Referral * Outpatient (Routine) - Closed Specialty Diagnoses / Procedures Referred By Contac t Referred To Contact Diagnoses Pain Low Back Unspecified Pain Buttock Pain Myofascial Procedures PM Trigger point injection Amelia Salgado APRN, CNS, D.N.P. [address] [place] [address] [facility] Referral ID Status Reason Start Date Expiration Date Visits Re quested Visits Authorized [id number] Closed 06/14/2023 06/13/2024 1 1 ATOR SENIOR CLINICAL Reason for Visit * Outpatient (Routine) - Closed Specialty Diagnoses / Procedures Referred By Contac t Referred To Contact Pain Medicine Amelia Salgado APRN, CNS, D.N.P. [address] [place] [address] [facility] Referral ID Status Reason Start Date Expiration Date Visits Re quested Visits Authorized [id number] Closed 03/02/2023 03/01/2026 1 1 Encounter Details Date Type Department Care Team (Late st Contact Info) Description 06/14/2023 11:30 AM EDUCATOR SENIOR CLINICAL Office Visit Division of Pain Medicine in [place], [place] [address] [place] [address] Amelia Salgado APRN, FERMENTING CELLAR DROPPER, D.N.P. [address] [place] [address] Pain Low Back Unspecified (Primary Dx); Pain Buttock; Pain Myofascial; Spondylosis Lumbar Without Myelopathy; Neuropathy Peripheral; Myofascial Pain Syndrome Social History Tobacco Use Types Packs/Day Years [...] often do you attend chur ch or baptism services? Never 09/27/2022 Do you belong to any clubs o r organizations such as christian groups, unions, fraternal or athletic groups, or [...] and heating? Not hard at all 01/05/2023 [facility] - [...] living situation today? I have a [facility] place to live 01/05/2023 Education Answer Date [...] PM CDT documented as of this encounter Progress Notes * Amelia Salgado APRN, FERMENTING CELLAR DROPPER, D.N.P. - 06/14/2023 11:30 AM CST Images from the original note were not included. SUBJECTIVE CHIEF COMPLAINT / REASON FOR VISIT Laura Madrid presents today in follow-up of 1. Pain Low Back Unspecified 2. Pain Buttock 3. Pain Myofascial 4. Spondylosis Lumbar Without Myelopathy 5. Neuropathy Peripheral 6. Myofascial Pain Syndrome . HISTORY OF PRESENT ILLNESS Laura Madrid is a 52 y.o. female with a history of post COVID syndrome, lumbosacral radiculopathy, peripheral neuropathy, low back pain, diabetes mellitus, and migraine headaches whom has been followed in the Pain Clinic for low back pain and lumbar radiculopathy. Initial consultation tookplace with Courtney Sandhu APRN, TRANSIT DRIVER, MSN in conjunction with Dr. Gibbons on 10/04/22 whom patient had been previously seeing at [facility] in the [facility]. I would refer the interested reader to this note for full details of the evaluation. Patient presents to the clinic today for consideration of repeat fluoroscopy guided bilateral lumbar spine radiofrequency ablation targeting L4-5/L5-S1. Shannon ent last underwent the procedure on 12/02/22 (right side) and 12/05/22 (left side) endorsing 90% improvement of symptoms that lasted 6 months. Recall patient additionally undergoes lumbar/PSIS trigger point injections as she feels pair nicely with pain control. Following previous ablation procedureshe felt that she could walk longer distances prior to pain and this increased her stamina. Briefly patient endorses similar pain characteristics to previous evaluation in which the pain is located in the low back at the midline with radiation through the buttocks. Patient denies radicular symptoms through the lower extremities at today's evaluation. Associated symptoms include pressure. Patient continues both land and water physical therapy at [facility] in the [facility]. Aggravating factors include weight-bearing activity such as standing and walking. Patient also reports clearing snow recently exacerbated her pain. Alleviating factors include sitting and lying down. Conservative treatments include ice/heat, massage, care worker, TENS unit, acupuncture, CBD roll- on, and physical therapy. Medication management include: Pain Medications acetaminophen (TYLENOL) 500 mg tablet Take 2 tablets by mouth as needed. citalopram (CeleXA) 20 mg tablet Take 30 mg by mouth every morning. cyclobenzaprine (FLEXERIL) 10 mg tablet Take 10 mg by mouth 3 (three) times a day as needed. gabapentin (NEURONTIN) 300 mg capsule Take 1 capsule (300 mg total) by mouth 3 (three) times a day.Add one pill in the morning, increase weekly for maximum dose 900 mg in the morning and 1800 mg at night. gabapentin (NEURONTIN) 600 mg tablet Take 1 tablet (600 mg total) by mouth 3 (three) times a day. ketorolac (TORADOL) 60 mg/2 mL intramuscular injection Inject intramuscularly as needed for pain. naproxen (NAPROSYN) 500 mg tablet Take 1 tablet by mouth every 12 (twelve) hours as needed for mildpain or score 1-3 of 10. oxyCODONE-acetaminophen (PERCOCET) 5-325 mg per tablet Take 1 tablet by mouth as needed. pregabalin (LYRICA) 225 mg capsule Take 1 capsule (225 mg total) by mouth 2 (two) times a day. pregabalin (LYRICA) 300 mg capsule Take 1 capsule (300 mg total) by mouth 2 (two) times a day. tiZANidine (ZANAFLEX) 4 mg tablet Take 1 tablet (4 mg total) by mouth at bedtime. Current Outpatient Medications Medication Instructions acetaminophen (TYLENOL) 500 mg tablet 2 tablets, oral, As needed albuterol 2.5 mg /3 mL nebulizer solution As needed atorvastatin (LIPITOR) 40 mg, oral, Daily at bedtime blood sugar diagnostic strips (Blood Glucose Test Strips) Test 3 times per day. Contour Next test JUDE ASCE blood-glucose meter kit Dispense meter, test strips, lancets covered by pt ins. E11.9 NIDDM type II- Test 4 times/day. Reason: High A1C citalopram (CELEXA) 30 mg, oral, Every morning cyclobenzaprine (FLEXERIL) 10 mg, oral, 3 times daily PRN cyproheptadine (PERIACTIN) 4 mg, oral, As needed dihydroergotamine (DHE) 0.5-1 mg, intramuscular, As needed docusate sodium (COLACE) 100 mg capsule 3 capsules, oral, Daily dulaglutide (TRULICITY) 4.5 mg/0.5 mL injection subcutaneous, Weekly, Saturdays esomeprazole (NexIUM) [address] capsule Daily fluconazole (DIFLUCAN) 150 mg tablet As needed gabapentin (NEURONTIN) 300 mg, oral, 3 times daily, Add one pill in the morning, increase weekly for maximum dose 900 mg in the morning and 1800 mg at night. gabapentin (NEURONTIN) 600 mg, oral, 3 times daily insulin lispro 100 unit/mL injection 3 times daily insulin syringe-needle U-100 0.3 mL 31 gauge x 5/16 syringe Daily ketorolac (TORADOL) 60 mg/2 mL intramuscular injection intramuscular, As needed lancets Test 4 times per day. Lantus Solostar U-100 Insulin 100 unit/mL (3 mL) injection 2 times daily levothyroxine (SYNTHROID, LEVOTHROID) 200 mcg tablet Daily lisinopriL (PRINIVIL,ZESTRIL) 5 mg, oral, Daily lorata-dine D 10-240 mg per 24 hr tablet 1 tablet, oral, Daily at bedtime metoprolol succinate (TOPROL-XL) 25 mg, oral, Daily naproxen (NAPROSYN) 500 mg tablet 1 tablet, oral, Every 12 hours PRN nystatin (NYSTOP) 100,000 unit/gram powder 1 strip, Topical, As needed ondansetron (ZOFRAN) 4 mg tablet As needed oxyCODONE-acetaminophen (PERCOCET) 5-325 mg per tablet 1 tablet, oral, As needed pramipexole (MIRAPEX) 0.25 mg tablet Take 3-4 Tablets (0.75-1 mg) by mouth at bedtime. pregabalin (LYRICA) 225 mg, oral, 2 times daily pregabalin (LYRICA) 300 mg, oral, 2 times daily scopolamine base (TRANSDERM SCOP) 1 mg over 3 days 1 patch, transdermal, Every 72 hours PRN sodium fluoride-pot nitrate 1.1-5 % paste USE DOCTOR INSTRUCTED tiZANidine (ZANAFLEX) 4 mg, oral, Daily at bedtime UltiCare Pen Needle 31 gauge x 5/16 needle USE FOR ADMINISTERING INSULIN AT HOME Laura Madrid denies recent fevers, chills, infections or antibiotics. No allergies to local anesthetic, corticosteroid, or contrast dye. No anticoagulation. No recent bowel or bladder changes. No unintentional weight loss or weight gain. Pain score today: 4/10. Imaging (personally reviewed and interpreted) 04/19/23 EXAM: MR LUMBAR SPINE WITHOUT IV CONTRAST COMPARISON: None. FINDINGS: At L5-S1, left subarticular zone disc protrusion contact the traversing left S1 nerve root. Bulky far left lateral L5-S1 disc osteophyte formations contact the extraforaminal left L5 nerve root. These are better in this exam compared to 01/27/2022 MRI but appear grossly similar. No significant lumbar spinal canal narrowing. Mild to moderate left and mild right L3-L4 neural foraminal narrowing due to disc bulge. No significant narrowing in remainder of lumbar neural foramina. Additional lumbar minor disc bulges and bulky far left lateral L4-L5 disc osteophyte formations without associated neural encroachment. Preserved lumbar vertebral height and alignment. No lumbar vertebral marrow edema. Mild Modic type II endplate spondylotic changes at L5-S1. Benign fatty filum terminale. Conus medullaris terminates at L1-L2 level. IMPRESSION: 1. L5-S1 left subarticular zone narrowing with contact of the traversing left S1 nerve roots. 2. Contact of the extraforaminal left L5 nerve root due to bulky left lateral L5-S1 disc osteophyte formation. ALLERGIES Cefprozil, Iodine, Latex, Erythromycin, Levofloxacin, and Isosorbide mononitrate MEDICAL/SURGICAL HISTORY Past Surgical History: Procedure Laterality Date DILATATION AND CURETTAGE 2014 GALLBLADDER SURGERY 1999 SINUS SURGERY 2001 THYROID SURGERY 2001 TOTAL HYSTERECTOMY 2015 Past Medical History: Diagnosis Date Depressive Disorder 2001 Diabetes Mellitus NOS 2013 Gastroesophageal Reflux Disease NOS 2000 Glaucoma 2021 Headache Unspecified Hypertension NOS Malignant Neoplasm Of Thyroid (HCC) 2001 Migraine Headache Nodule Thyroid 2001 Other Injury Of Unspecified Body Region Pneumonia Social History Tobacco Use Smoking status: Never Passive exposure: Current Smokeless tobacco: Never Substance Use Topics Alcohol use: Not Currently Comment: Maybe 1-2 drinks a year Drug use: Never REVIEW OF SYSTEMS All systems reviewed and found to be negative/normal except as mentioned above, per HPI. OBJECTIVE REVIEW OF SYSTEMS: Laura Madrid's history was reviewed including allergies, current medications, and problem list. PHYSICAL EXAM GENERAL: Pleasant, 53 y.o. female, in no acute distress. HEAD: Normocephalic and atraumatic. EYES: Pupils 3-4 mm. LUNGS: Unlabored respirations. SKIN: Inspection of the lumbosacral paraspinous dry and intact, absent of erythema, lesions, rashes, or infections. GAIT: Non-antalgic. Ambulates without assistive device. MUSCULOSKELETAL: Palpation about the lumbosacral paraspinal with tenderness throughout. SPINE: ROM: Flexion and extension intact with reproducible pain. MANEUVERS: Facet loading maneuvers positive bilaterally. MENTAL: Alert, oriented, appropriate mood and affect, recent and remote memory intact. ASSESSMENT / PLAN #1 Pain Low Back Unspecified #2 Pain Buttock #3 Pain Myofascial #4 Spondylosis Lumbar Without Myelopathy #5 Neuropathy Peripheral #6 Myofascial Pain Syndrome MEDICAL DECISION MAKING Medications: Patient is currently taking pregabalin 225 mg twice daily. We discussed upper titration and patient will increase to 300 mg twice daily and evaluate response. Low Back Pain: After evaluation patient is appropriate to proceed without contraindications to repeat fluoroscopy guided bilateral lumbar spine radiofrequency ablation targeting L4-5/-S1 with left side on 06/14/23 and right side on 06/15/23. We have discussed the risks, benefits, and intended outcomes of the procedure. The patient understands that it may take up to 2 weeks to experience significant improvement in pain. It was discussed with the patient that the application of ice and avoidance of heat and soaking are recommended for the first 48 hours after the procedure. Showering is appropriate. The patient stated understanding and their questions and concerns were answered to the best ofmy abilities. The procedural consent was signed in the office. Myofascial Pain: Patient inquired about eligibility for consideration of repeat lumbar trigger point injections. Patient would be eligible for repeat these injections after 07/14/23. I did inform thepatient that we could do these without ultrasound guidance at the bedside. I have placed the ordersfor patient to have this done non guided at the bedside as procedure visit with myself. FOLLOW-UP With the Pain Clinic as needed in the interim of injection therapy. Total time: 30 minutes with face to face with patient and non-face to face including chart prep andreview. PATIENT EDUCATION Ready to learn, no apparent learning barriers were identified; learning preferences included listening. Explained diagnosis and treatment plan; patient expressed understanding of the content. The risk of exposure to COVID-19 within the facility was discussed. All questions pertaining to this situation were answered, and the patient agreed to proceed. PRO Scores: 06/02/2023 12:38 AM 06/02/2023 12:39 AM 06/02/2023 12:40 AM [facility] PROMIS-CAT: Sleep disturbance 46 (within normal limits) PROMIS-CAT: Pain interference 64 (moderate) PROMIS-CAT: Ability to participate social roles 37 (moderate dysfunction) PROMIS-CAT: Physical function 32 (moderate dysfunction) There were no vitals taken for this visit. There is no height or weight on file to calculate BMI. ATOR SENIOR CLINICAL documented in this encounter Plan of Treatment Upcoming Encounters Date Type Department Care Team (Late st Contact Info) Description 09/19/2023 9:00 AM EDUCATOR SENIOR CLINICAL Telemedicine Division of Pain Medicine in [place], [place] [address] [place] [phone] Carey Hinkle APRN, FERMENTING CELLAR DROPPER, M.S. [address] [place] [phone] documented as of this encounter Results * AR INJ TRIGGER PNT<=2 MUS (07/24/2023 10:45 AM EDUCATOR SENIOR CLINICAL) Narrative [facility] - 07/24/2023 10:45 AM EDUCATOR SENIOR CLINICAL Courtney Sandhu APRN, C.N.P., M.S.N. ? 07/24/2023 11:56 AM PM Trigger point injection (left PSIS and right PSIS) Performed by: Courtney Sandhu APRN, C.N.PShamika, M.S.N. Authorized by: Amelia Salgado APRN, Boris DRUMMONDN.P. ?? Care team members present 1. Courtney Sandhu APRN, C.N.PShamika, M.S.N. 2. Robert Gibbons M.D. PROCEDURE SUMMARY [...] fellow participated in the procedure, and the fundraising consultant was present for the entire procedure. OPERATIVE NOTE INFORMATION Specimens: 0 Drains: 0 Estimated blood loss: 0 Implants: 0 Amelia Salgado APRN, BHANU, D.N.P. PROCE DURE/MINOR SURGICAL ORDERABLES MMODAL NA documented in this encounter Visit Diagnoses Diagnosis Pain Low Back Unspecified- Primary Pain Buttock Pain Myofascial Spondylosis Lumbar Without Myelopathy Neuropathy Peripheral Myofascial Pain Syndrome Pain Low Back Unspecified Pain Buttock Pain Myofascial documented in this encounter Care Teams Undercutter Operator Relationship Specialty Start Date End Date Elsewhere, Pcp PCP - General Internal Medicine 09/30/22 documented as of this encounter
--- OUTSIDE RECORDS SUMMARY | 2023-08-16 08:14 | XMS_ITS | Encounter Summary ---
Author Name Unknown Organization [facility] Address [address] [place] [id number] Care Team Providers Care Ivory Polisher Name Role Phone Elsewhere, Pcp Primary Care Provider Unavailabl e Encounter Details Date Type Department Care Team (Late st Contact Info) Description 04/20/2023 Clinical Communication Division of Pain Medicine in [place], [place] [address] [place] [phone] Robert Gibbons M.D. [address] [place] [phone] Social History Tobacco Use Types Packs/Day Years [...] How often do you attend chur or shinto services? Never 09/27/2022 Do you belong to any clubs o r organizations such as lutheran groups, unions, fraDezineforce or athletic groups, or school groups? No [...] and heating? Not hard at all 01/05/2023 [facility] - [...] your living situation today? [facility] place [facility] 01/05/2023 Education Answer [...] st Contact Info) Description 09/19/2023 9:00 AM TRUCK TERMINAL MANAGER Telemedicine Division of Pain Medicine in [place], [place] [address] [place] [address] Carey Hinkle APRN, FARM CONSULTANT, M.S. [address] [place] [address] documented as of this encounter Visit Diagnoses Not on filedocumented in this encounter Care Teams Ivory Polisher Relationship Specialty Start Date End Date Elsewhere, Pcp PCP - General Internal Medicine 09/30/22 documented as of this encounter
--- OUTSIDE RECORDS SUMMARY | 2023-08-16 08:14 | XMS_ITS | Clinical Summary ---
Author Name Unknown Organization [facility] Address [address] [place] [address] Care Team Providers Care Identifier Horse Name Role Phone Elsewhere, Pcp Primary Care Provider Unavailabl e Source Comments Patient records contain information from all sites at [facility]. For routine questions regarding patient records, call [phone] during business hours, M-F 8:00 AM - 5:00 PM Central Time. Record requests for emergency care only can be directed to [phone] at any time.[facility] Allergies Active Allergy Reactions Criticality Noted Date [...] Myelopathy 20 mL/hr IV Continuous 12/05/2022 Active Encounters Date Type Department Care Team Description 07/24/2023 10:45 AM INDUSTRIAL ENGINEERING TECHNICIAN Procedure visit Division of Pain Medicine in [place], [place] [address] [place] [phone] Courtney Sandhu APRN, C.N.P., M.S.N. Pain Low Back Unspecified; Pain Buttock; Pain Myofascial 06/15/2023 7:56 AM INDUSTRIAL ENGINEERING TECHNICIAN - 06/15/2023 11:59 PM INDUSTRIAL ENGINEERING TECHNICIAN Hospital Encounter Division of Pain Medicine in [place], [place] [address] [place] [phone] Amelia Salgado APRN, BHANU, D.N.P. Spondylosis Lumbar Without Myelopathy; Pain Low Back Unspecified Discharge Disposition: Home or Self Care 06/14/2023 12:11 PM INDUSTRIAL ENGINEERING TECHNICIAN - 06/14/2023 11:59 PM INDUSTRIAL ENGINEERING TECHNICIAN Hospital Encounter Division of Pain Medicine in [place], [place] [address] [place] [phone] Amelia Salgado APRN, SUPERVISOR PLASMA, D.N.P. Spondylosis Lumbar Without Myelopathy; Pain Low Back Unspecified Discharge Disposition: Home or Self Care 06/14/2023 11:30 AM INDUSTRIAL ENGINEERING TECHNICIAN Office Visit Division of Pain Medicine in [address] [phone] Amelia Salgado APRN, SUPERVISOR PLASMA, D.N.P. Pain Low Back Unspecified (Primary Dx); Pain Buttock; Pain Myofascial; Spondylosis Lumbar Without Myelopathy; Neuropathy Peripheral; Myofascial Pain Syndrome 06/12/2023 1:00 PM INDUSTRIAL ENGINEERING TECHNICIAN Clinical Communication Virtual Review in [place], [place] 200 [place] [address] Pre-visit Intake from Last 3 Months Family History Medical History Relation Name Comments Anesthesia problems Father Tesfaye Coronary artery disease Father Tesfaye Depression Father Tesfaye Diabetes Father Tesfaye Hyperlipidemia Father Tesfaye Hypertension Father Tesfaye Lymphoma Father Tesfaye Obesity Father Tesfaye Suicide Attempts Father Tesfaye Coronary artery disease Father's Brother Tam Migraines Father's Sister 1 Sonali Skin cancer Father's Sister 1 Sonali Thyroid disease Father's Sister 2 Juan Alcohol abuse Maternal Grandfather Abdelrahman Hyperlipidemia Mother Arlen Other cancer Mother's Sister Pippa Esophageal Coronary artery disease Paternal Grandfather Kathrine Hyperlipidemia Paternal Grandfather Kathrine Hypertension Paternal Grandfather Kathrine Skin cancer Paternal Grandfather Kathrine Stroke Paternal Grandfather Kathrine Thyroid disease Paternal Grandmother Gloria Depression Sister Maddie Diabetes Sister Maddie Hyperlipidemia Sister Maddie Hypertension Sister Maddie Migraines Sister Maddie Obesity Sister Maddie Seizures Sister Maddie Stroke Sister Maddie Relation Name Status Comments Father Tesfaye Father's Brother Tam Father's Sister 1 Sonali Father's Sister 2 Juan Maternal Grandfather Abdelrahman Mother Arlen Mother's Sister Pippa Paternal Grandfather Kathrine Paternal Grandmother Gloria Sister Maddie Social History Tobacco Use Types Packs/Day Years [...] week 09/27/2022 How often do you attend [facility] or mormonism services? Never 09/27/2022 Do you belong to any clubs o r organizations such as congregation groups, unions, fraternal or athletic groups, or [...] and heating? Not hard at all 01/05/2023 [facility] - Occupational Stress [...] your living situation today? I have a [employer] place to live 01/05/2023 Education Answer Date [...] Comments Blood Pressure 127/69 06/15/2023 9:25 AM INDUSTRIAL ENGINEERING TECHNICIAN Pulse 80 06/15/2023 9:25 AM INDUSTRIAL ENGINEERING TECHNICIAN Temperature 36.6 ??C (97.9 ??F) 06/15/2023 8:43 AM CS T Respiratory Rate 13 06/15/2023 9:25 AM INDUSTRIAL ENGINEERING TECHNICIAN Oxygen Saturation 97% 06/15/2023 9:25 AM INDUSTRIAL ENGINEERING TECHNICIAN Inhaled Oxygen Concentration - - Weight 157 kg (346 lb 12.5 oz) 10/04/2022 9:10 A M CDT Height 175.5 cm (5' 9.09) 10/04/2022 9:10 AM CD T Body Mass Index 51.07 10/04/2022 9:10 AM CDT Plan of Treatment Upcoming Encounters Date Type Department Care Team (Late st Contact Info) Description 09/19/2023 9:00 AM INDUSTRIAL ENGINEERING TECHNICIAN Telemedicine Division of Pain Medicine in [place], [place] 200 [place] [phone] Carey Hinkle APRN, SUPERVISOR PLASMA, M.S. 200 [place] [phone] Health Maintenance Due Date Last Done Comments CT Colonography 1971 Cologuard 1971 Colonoscopy 1971 Colorectal Cancer Screening 1971 FIT 1971 Hepatitis C Screening 1971 Mammogram 1971 Office Visit for Blood Pressure Check / Re-check 01/04/2023 10/04/2022 COVID-19 Vaccine ( season) 2023 04/02/2022, 10/08/2021, 10/08/2021, Additional history exists Influenza Vaccine (#1) 2023 Depression Screening (Annual PHQ-2) 07/17/2023 Thyroid Stimulating Hormone (TSH) test for thyroid function 02/15/2024 02/14/2023, 09/23/2022, 12/17/2021, Additional history exists Creatinine Level (Kidney Function Test) 06/12/2024 06/12/2023, 03/07/2023, 12/01/2022, Additional history exists Sodium Level 06/12/2024 06/12/2023, 02/15, 12/01/2022, Additional history exists Potassium Level 07/03/2024 07/03/2023, 05/18, 06/05/2023, Additional history exists Fasting Glucose for Diabetes Screening 06/12/2026 06/12/2023, 03/07/2023, 12/01/2022, Additional history exists DTaP,Tdap,and Td Vaccines (4 - Td or Tdap) 06/12/2027 06/12/2017, 12/08/2005, 12/08/2005, Additional history exists Lipid (Cholesterol) Screening 09/02/2027 09/02/2022, 02/25/2022, 01/22/2021, Additional history exists Hepatitis B Vaccines Completed 09/24/1999, 05/03/1999, 03/10/1999 Zoster Vaccines Completed 07/30/2021, 05/21/2021 Pneumococcal vaccine (0-64 years) Aged Out 09/08/2021, 01/31/2020 No longer eligibl e based on patient's age to complete this topic Procedures Procedure Name Priority Date/Time Associated Diagnosis Comments [place] INJ TRIGGER PNT<=2 MUS Routine 07/24/2023 10:45 AM INDUSTRIAL ENGINEERING TECHNICIAN Pain Low Back Unspecified Pain Buttock Pain Myofascial FL LUMBAR SPINE RADIOFREQUENCY DENERVATION Routine 06/15/2023 9:08 AM INDUSTRIAL ENGINEERING TECHNICIAN Spondylosis Lumbar Without Myelopathy Pain Low Back Unspecified FL LUMBAR SPINE RADIOFREQUENCY DENERVATION Routine 06/14/2023 2:25 PM INDUSTRIAL ENGINEERING TECHNICIAN Spondylosis Lumbar Without Myelopathy Pain Low Back Unspecified from Last 3 Months Results * TN INJ TRIGGER PNT<=2 MUS (07/24/2023 10:45 AM INDUSTRIAL ENGINEERING TECHNICIAN) Narrative MMODAL - 07/24/2023 10:45 AM INDUSTRIAL ENGINEERING TECHNICIAN Courtney Sandhu APRN, C.N.P., M.S.N. ? 07/24/2023 [...] fellow participated in the procedure, and the renewable energy consultant was present for the entire procedure. OPERATIVE NOTE INFORMATION Specimens: 0 Drains: 0 Estimated blood loss: 0 Implants: 0 BHANU Paul APRN, D.N.P. PROCE DURE/MINOR SURGICAL ORDERABLES MMODAL NA * FL Lumbar Spine Radiofrequency Denervation (06/15/2023 9:08 AM INDUSTRIAL ENGINEERING TECHNICIAN) Only the most recent of2 resultswithin the time period is included. Narrative MMODAL - 06/15/2023 9:00 AM INDUSTRIAL ENGINEERING TECHNICIAN Sarah Carranza M.D. ? 06/15/2023 ??9:26 AM [place] Lumbar Spine Radiofrequency Denervation Performed by: Sarah Carranza M.D. Authorized by: Amelia Salgado APRN, BHANU, D.N.P. [...] fellow participated in the procedure, and the renewable energy consultant was present for the entire procedure. OPERATIVE NOTE INFORMATION Specimens: 0 Drains: 0 Estimated blood loss: 0 Implants: 0 Amelia Salgado APRN, SUPERVISOR PLASMA, D.N.P. FLUOR O GUIDED PAIN PROCEDURES MMODAL NA from Last 3 Months Advance Directives For more information, please contact: [phone] Documents on File Type Date Recorded Patient Agricultural Engineer Expl anation Advance Directives 10/05/2022 8:01 PM Arlen Jenkins Kathe Rincon HCPOA/ADVOCATE/AGENT/R EPRESENTATIVE/SURROGAT E Healthcare Agents on File Name Relationship Healthcare Agent Relationship Communication Arlen Madrid Mother Health Care Agent [email or web address] Dudley Madrid Brother First Alternate Health Care Agent Elena Rincon Friend Second Alternate Health Care Agent Care Teams Identifier Horse Relationship Specialty Start Date End Date Elsewhere, Pcp PCP - General Internal Medicine 09/30/22
--- OUTSIDE RECORDS SUMMARY | 2023-08-16 08:14 | XMS_ITS ---
Author Name Unknown Organization [facility] Address [address] [place] [address] Care Team Providers Care Cpc Coder Name Role Phone Unavailable Unavailable Unavailable Surgery Details Not on file Complications Check Surgery Details section. Procedure Estimated Blood Loss Check Surgery Details section. Procedure Findings Check Surgery Details section. Procedure Specimens Taken Check Surgery Details section.
--- OUTSIDE RECORDS SUMMARY | 2023-08-16 08:14 | XMS_ITS | Encounter Summary ---
Author Name Unknown Organization [facility] Address [address] [place] [address] Care Team Providers Care Bartenders Name Role Phone Elsewhere, Pcp Primary Care Provider Unavailabl e Reason for Referral * Outpatient (Routine) - Closed Specialty Diagnoses / Procedures Referred By Contac t Referred To Contact Diagnoses Spondylosis Lumbar Without Myelopathy Pain Low Back Unspecified Procedures [place] Lumbar Spine Radiofrequency Denervation [place] DEST LUMB/SAC FACET JT [place] DEST LUMB/SAC FACET JT Amelia English APRN, SPEECH THERAPY ASSISTANT, D.N.P. [address] [place] [phone] [facility] Referral ID Status Reason Start Date Expiration Date Visits Re quested Visits Authorized [id number] Closed 03/02/2023 03/01/2024 1 1 FITTER Reason for Visit * Outpatient (Routine) - Closed Specialty Diagnoses / Procedures Referred By Contac t Referred To Contact Diagnoses Spondylosis Lumbar Without Myelopathy Pain Low Back Unspecified Procedures [place] Lumbar Spine Radiofrequency Denervation [place] DEST LUMB/SAC FACET JT [place] DEST LUMB/SAC FACET JT Amelia English APRN, SPEECH THERAPY ASSISTANT, D.N.P. [address] [place] [phone] [facility] Referral ID Status Reason Start Date Expiration Date Visits Re quested Visits Authorized [id number] Closed 03/02/2023 03/01/2024 1 1 Encounter Details Date Type Department Care Team (Latest Contact Info) Description 06/14/2023 12:11 PM DIE FITTER - 06/14/2023 11:59 PM DIE FITTER Hospital Encounter Division of Pain Medicine in [place], [place] [address] [place] [phone] Amelia Salgado, DANYEL, SPEECH THERAPY ASSISTANT, D.N.P. [address] [place] [phone] Spondylosis Lumbar Without Myelopathy; Pain Low Back [...] week 09/27/2022 How often do you attend [facility] or buddhist services? Never 09/27/2022 Do you belong to any clubs o r organizations such as sabianism groups, unions, fraternal or athletic groups, or [...] and heating? Not hard at all 01/05/2023 [facility] - Occupational Stress Questionnaire Answer Date Recorded [...] your living situation today? I have a [facility] place to live 01/05/2023 Education Answer Date [...] Sign Reading Time Taken Comments Blood Pressure 123/60 06/14/2023 2:33 PM DIE FITTER Pulse 78 06/14/2023 2:33 PM DIE FITTER Temperature - - Respiratory Rate 9 06/14/2023 2:33 PM DIE FITTER Oxygen Saturation 95% 06/14/2023 2:33 PM DIE FITTER Inhaled Oxygen Concentration - - Weight - [...] 31 gauge x 5/16 syringe daily. 0 01/28/2020 ketorolac (TORADOL) 60 [...] as of this encounter Procedure Notes * Zabrina Restrepo M.D. - 06/14/2023 1:30 PM CSTAssociated Order(s): FL Lumbar Spine Radiofrequency Denervation Pre-Procedure Diagnose(s): Spondylosis Lumbar Without Myelopathy; Pain Low Back Unspecified Post-Procedure Diagnose(s): Spondylosis Lumbar Without Myelopathy; Pain Low Back Unspecified FL Lumbar Spine Radiofrequency Denervation Performed by: Zabrina Restrepo M.D. Authorized by: Amelia Salgado APRN, SPEECH THERAPY ASSISTANT, D.N.P. Care team members present 1. Rio Mejia M.D. 2. Brie Estes L.P.NShamika PROCEDURE SUMMARY Indications: Spondylosis without myelopathy Pre-procedural pain: 410 Site: lumbar Lumbar: medial branch radiofrequency Radiofrequency ablation of the Left L4-L5 and Left L5-S1 facet joints Double burn: yes RFA [...] fellow participated in the procedure, and the franchise business consultant was present for the entire procedure. OPERATIVE NOTE INFORMATION Specimens: 0 Drains: 0 Estimated blood loss: 0 Implants: 0 FITTER documented in this encounter Plan of Treatment Upcoming Encounters Date Type Department Care Team (Late st Contact Info) Description 09/19/2023 9:00 AM DIE FITTER Telemedicine Division of Pain Medicine in [place], [place] [address] [place] [address] Carey Hinkle APRN, BHANU, M.S. [address] [place] [phone] documented as of this encounter Procedures Procedure Name Priority Date/Time Associated Diagnosis Comments FL LUMBAR SPINE RADIOFREQUENCY DENERVATION Routine 06/14/2023 2:25 PM DIE FITTER Spondylosis Lumbar Without Myelopathy Pain Low Back Unspecified documented in this encounter Results * FL Lumbar Spine Radiofrequency Denervation (06/14/2023 2:25 PM DIE FITTER) Narrative MMODAL - 06/14/2023 1:30 PM DIE FITTER Zabrina Restrepo M.D. ? 06/14/2023 ??4:32 PM FL Lumbar Spine Radiofrequency Denervation Performed by: Zabrina Restrepo M.D. Authorized by: Amelia Salgado APRN, BHANU, D.N.P. ?? Care team members present 1. Rio Mejia M.D. 2. Brie Estes LShamikaP.N. PROCEDURE SUMMARY Indications: Spondylosis without myelopathy Pre-procedural pain: 10/24 Site: lumbar Lumbar: medial branch radiofrequency Radiofrequency ablation of the Left L4-L5 and Left L5-S1 facet joints Double burn: yes RFA [...] fellow participated in the procedure, and the franchise business consultant was present for the entire procedure. OPERATIVE NOTE INFORMATION Specimens: 0 Drains: 0 Estimated blood loss: 0 Implants: 0 Amelia Salgado APRN, SPEECH THERAPY ASSISTANT, D.N.P. FLUOR O GUIDED PAIN PROCEDURES MMODAL NA documented in this encounter Visit Diagnoses Diagnosis Spondylosis Lumbar Without Myelopathy Pain Low Back Unspecified documented in this encounter Administered Medications Active Administered Medications - up to 3 most recent administrations Medication Order MAR Action Action Date Dose Rate Site lactated ringers 20 mL/hr, intravenous, Continuous, Starting on Mon12/05/22 at 1330 New Bag 06/14/2023 12:57 PM DIE FITTER 20 mL/hr 20 mL/hr New Bag 12/05/2022 1:26 PM CDT 20 mL/hr 20 mL/hr Inactive Administered Medications - up to 3 most recent administrations Medication Order MAR Action Action Date Dose Rate Site BUPivacaine 0.5 % (5 mg/mL) injection 6 mL (MARCAINE) 6 mL, injection, One-Time Injection, Starting on Mon06/14/23 at 1330, For 1 dose Given 06/14/2023 1:30 PM DIE FITTER 6 mL fentaNYL injection (SUBLIMAZE) intravenous, As needed, Starting on Mon06/14/23 at 1402, Intra-Op Given 06/14/2023 2:02 PM DIE FITTER 50 mcg lidocaine 20 mg/mL injection 3 mL (XYLOCAINE) 3 mL, injection, One-Time Injection, Starting on Mon06/14/23 at 1330, For 1 dose Given 06/14/2023 1:30 PM DIE FITTER 3 mL midazolam (PF) injection (VERSED) As needed, Starting on Mon06/14/23 at 1402, Intra-Op Given 06/14/2023 2:02 PM DIE FITTER 2 mg documented in this encounter Care Teams Bartenders Relationship Specialty Start Date End Date Elsewhere, Pcp PCP - General Internal Medicine 09/30/22 documented as of this encounter
--- OUTSIDE RECORDS SUMMARY | 2023-08-16 08:14 | XMS_ITS | Encounter Summary ---
Author Name Unknown Organization [facility] Address [address] [place] [address] Care Team Providers Care Revenue Research Analyst Name Role Phone Elsewhere, Pcp Primary Care Provider Unavailabl e Reason for Referral * Outpatient (Routine) - Authorized Specialty Diagnoses / Procedures Referred By Edgar aaron Referred To Contact Pain Medicine Diagnoses Pain Low Back Unspecified Pain Myofascial Courtney Sandhu APRN, C.N.P., M.S.N. [address] [place] [phone] [facility] Referral ID Status Reason Start Date Expiration Date V isits Requested Visits Authorized [id number] Authorized 07/24/2023 07/23/2024 1 1 ER COASTWISE YACHT Reason for Visit * Outpatient (Routine) - Closed Specialty Diagnoses / Procedures Referred By Contac t Referred To Contact Diagnoses Pain Low Back Unspecified Pain Buttock Pain Myofascial Procedures PM Trigger point injection Amelia Salgado APRN, BRAKE REPAIRER HYDRAULIC, D.N.P. [address] [place] [phone] [facility] Referral ID Status Reason Start Date Expiration Date Visits Re quested Visits Authorized [id number] Closed 06/14/2023 06/13/2024 1 1 Encounter Details Date Type Department Care Team (Latest Contact Info) Description 07/24/2023 10:45 AM MASTER COASTWISE YACHT Procedure visit Division of Pain Medicine in [place], [place] [address] [place] [phone] Courtney Sandhu APRN, C.N.P., M.S.N. [address] [place] [phone] Pain Low Back Unspecified; Pain Buttock; Pain Myofascial Social History Tobacco Use Types Packs/Day Years [...] week 09/27/2022 How often do you attend [facility] or scientology services? Never 09/27/2022 Do you belong to any clubs o r organizations such as protestant groups, unions, fraternal or athletic groups, or [...] and heating? Not hard at all 01/05/2023 [facility] Occupat ional Health - Occupational [...] PM CDT documented as of this encounter Procedure Notes * Courtney Sandhu APRN, C.N.P., M.S.N. - 07/24/2023 10:45 AM CSTAssociated Order(s): PM Trigger point injection Pre-Procedure Diagnose(s): Pain Low Back Unspecified; Pain Buttock; Pain Myofascial Post-Procedure Diagnose(s): Pain Low Back Unspecified; Pain Buttock; Pain Myofascial PM Trigger point injection (left PSIS and right PSIS) Performed by: Courtney Sandhu APRN, C.N.P., M.S.N. Authorized by: Amelia Salgado APRN, BHANU, D.N.P. Care team members present 1. Courtney Sandhu APRN, C.N.P., M.S.N. 2. Robert Gibbons M.D. PROCEDURE SUMMARY Indication: Low back pain Pre procedure pain score: 5/10 Soft tissue site: left PSIS and right PSIS PSIS: PSIS position: prone Needle size: 25 G Needle length: 2.5 in Number of muscles injected: 1 or 2 muscles INJECTED MEDICATIONS The injected medication(s) listed was divided equally between the identified injection location(s) Total volume of injectate (mL): 10 Total steroid in injectate (mg): 40 4 mL BUPivacaine 0.5 % (5 mg/mL) 5 mL lidocaine 20 mg/mL 40 mg triamcinolone acetonide 40 mg/mL PROCEDURE DETAILS PSIS procedure description: The patient was placed in the appropriate position. Prior to the procedure, the appropriate PSIS was examined to determine the optimal needle placement. Thereafter, a needle was advanced into the tissue overlying the PSIS. After visualization of the tip and negative aspiration for blood, the medication was injected into the area surrounding the PSIS. Following the injection, the needle was withdrawn. The patient tolerated the procedure well and there were no apparentcomplications. After an appropriate amount of observation, the patient was dismissed from the clinic in good condition under their own power. Complications: no apparent complications Comments Verbal consent obtained as patient was already positioned prone on table. Witnessed by Dr. Cifuentes patient's mother. Two sites - bilateral PSIS [...] were utilized as applicable for the procedure. Skin preparation: Chlorhexidine SEDATION / ANESTHESIA Anesthesia method: none ATTESTATION STATEMENT A resident or fellow participated in the procedure, and the financial sales consultant was present for the entire procedure. OPERATIVE NOTE INFORMATION Specimens: 0 Drains: 0 Estimated blood loss: 0 Implants: 0 ER COASTWISE YACHT documented in this encounter Plan of Treatment Upcoming Encounters Date Type Department Care Team (Late st Contact Info) Description 09/19/2023 9:00 AM MASTER COASTWISE YACHT Telemedicine Division of Pain Medicine in [place], [place] [address] [place] [address] Carey Hinkle APRN, BHANU, M.S. [address] [place] [address] Scheduled Referrals Name Type Priority Associated Diagnoses Orde r Schedule Pain Medicine - Wellness consult (clinic) Outpatient Referral Routine Pain Low Back Unspecified Pain Myofascial Expected: 07/24/2023 (Approximate), Expires: 10/22/2024 documented as of this encounter Procedures Procedure Name Priority Date/Time Associated Diagnosis Comments MD INJ TRIGGER PNT<=2 MUS Routine 07/24/2023 10:45 AM MASTER COASTWISE YACHT Pain Low Back Unspecified Pain Buttock Pain Myofascial documented in this encounter Results * MD INJ TRIGGER PNT<=2 MUS (07/24/2023 10:45 AM MASTER COASTWISE YACHT) Narrative MMODAL - 07/24/2023 10:45 AM MASTER COASTWISE YACHT Courtney Sandhu APRN, C.N.P., M.S.N. ? 07/24/2023 11:56 AM PM Trigger point injection (left PSIS and right PSIS) Performed by: Courtney Sandhu APRN, C.N.P., M.S.N. Authorized by: Amelia Salgado APRN, CNS, D.N.P. [...] fellow participated in the procedure, and the financial sales consultant was present for the entire procedure. OPERATIVE NOTE INFORMATION Specimens: 0 Drains: 0 Estimated blood loss: 0 Implants: 0 Amelia Salgado APRN, BHANU, D.N.P. PROCE DURE/MINOR SURGICAL ORDERABLES MMODAL NA documented in this encounter Visit Diagnoses Diagnosis Pain Low Back Unspecified Pain Buttock Pain Myofascial documented in this encounter Administered Medications Inactive Administered Medications - up to 3 most recent administrations Medication Order MAR Action Action Date Dose Rate Site BUPivacaine 0.5 % (5 mg/mL) injection 4 mL (MARCAINE) 4 mL, injection, One-Time Injection, Starting on Mon07/24/23 at 1045, For 1 dose Given 07/24/2023 10:45 AM MASTER COASTWISE YACHT 4 mL lidocaine 20 mg/mL injection 5 mL (XYLOCAINE) 5 mL, injection, One-Time Injection, Starting on Mon07/24/23 at 1045, For 1 dose Given 07/24/2023 10:45 AM MASTER COASTWISE YACHT 5 mL triamcinolone acetonide injection 40 mg (KENALOG-40) 40 mg, injection, One-Time Injection, Starting on Mon07/24/23 at 1045, For 1 dose Given 07/24/2023 10:45 AM MASTER COASTWISE YACHT 40 mg documented in this encounter Care Teams Revenue Research Analyst Relationship Specialty Start Date End Date Elsewhere, Pcp PCP - General Internal Medicine 09/30/22 documented as of this encounter
--- OUTSIDE RECORDS SUMMARY | 2023-08-16 08:15 | XMS_ITS | Encounter Summary ---
Author Name Unknown Organization [facility] Address [address] [place] [address] Care Team Providers Care Low Heel Builder Name Role Phone Elsewhere, Pcp Primary Care Provider Unavailabl e Reason for Referral * Outpatient (Routine) - Closed Specialty Diagnoses / Procedures Referred By Contac t Referred To Contact Diagnoses Pain Myofascial Procedures PM Trigger point injection Estefany Dee APRN, C.NSamuel, M.S.N. [address] [place] [phone] [facility] Referral ID Status Reason Start Date Expiration Date Visits Re quested Visits Authorized [id number] Closed 01/12/2023 01/12/2024 1 1 * Outpatient (Routine) - Closed Specialty Diagnoses / Procedures Referred By Contac t Referred To Contact Pain Medicine Estefany Dee APRN, C.NSamuel, M.S.N. [address] [place] [address] [facility] Referral ID Status Reason Start Date Expiration Date Visits Re quested Visits Authorized [id number] Closed 01/12/2023 01/11/2026 1 1 Reason for Visit * Outpatient (Routine) - Closed Specialty Diagnoses / Procedures Referred By Contnilda t Referred To Contact Pain Medicine Robert Gibbons M.D. [address] [place] [phone] [facility] Referral ID Status Reason Start Date Expiration Date Visits Re quested Visits Authorized [id number] Closed 12/05/2022 12/04/2025 1 1 Encounter Details Date Type Department Care Team (Late st Contact Info) Description 01/12/2023 11:00 AM CDT Office Visit Division of Pain Medicine in [place], [place] [address] [place] [phone] Estefany Dee APRN, C.NPaige., M.S.N. [address] [place] [phone] Pain Myofascial (Primary Dx); Pain Knee Right; Spondylosis Lumbar Without Myelopathy; Neuropathy Peripheral; Radiculopathy; Myofascial Pain Syndrome Social History Tobacco Use [...] How often do you attend chur or buddhist services? Never 09/27/2022 Do you belong to any clubs o r organizations such as mandaen groups, unions, fraternal or athletic groups, or [...] and heating? Not hard at all 01/05/2023 [facility] - [...] your living situation today? I have a [facility] place to live 01/05/2023 Education Answer [...] as of this encounter Progress Notes * Estefany Dee, DANYEL, C.N.P., M.S.N. - 01/12/2023 11:00 AM CDT SUBJECTIVE CHIEF COMPLAINT / REASON FOR VISIT Laura Madrid is a 52 y.o. female who was returns to the Pain Clinic for Encounter Diagnoses Name Primary? Pain Myofascial Yes Pain Knee Right Spondylosis Lumbar Without Myelopathy Neuropathy Peripheral Radiculopathy Myofascial Pain Syndrome . HISTORY OF PRESENT ILLNESS Laura is a delightful 52-year-old female who presents today accompanied by her mother. She recently went under lumbar spine radiofrequency denervation at the left L4-L5 and L5-S1 facets. She is doing quite well from a recovery standpoint with significant 80-90% improvement in her low back pain. U chidiunately while she was ambulating into a grocery store she felt a pop in her right knee and reported to urgent care where imaging identified an MCL sprain and or tear. She is currently working with [facility] for physical therapy and pain management for recovery from this injury. Due to an adaptation and body mechanics secondary to this injury she has experienced increased myofascial pain in the lumbosacral region left greater than right and will intermittently experience what she describes as someone squeezing a tennis ball sensation in her low back particularly while moving. She has been utilizing pool therapy and notes a reduction in her body habitus from 425 lb to 355lb. She has been working very diligently at this and continues to do so however is discouraged as it is difficult for her to continue this journey with the new any injury. She brings reports from [facility] dated 01/10/2023 as well as encouraged [facility] in physical therapy outpatient progress notes. Please see scanned material for further detail. Historically she does have peripheral neuropathy with difficulty feeling sensations in the bases ofher feet plantar aspect she describes if falling asleep sensation in these areas. Prior to her kneeinjury she was undergoing dry needling and was able to have some regain of sensation in these regions unfortunately her most recent therapy session she was unable to feel the dry needling in her feetwhich she also found discouraging. She discusses about with cellulitis this was several months ago she does not actively have any current infections nor is actively on any antibiotic therapy. She denies any allergies to adhesive corticosteroids contrast dye or surgical soaps. Current Outpatient Medications Medication Sig Dispense Refill gabapentin (NEURONTIN) 600 mg tablet Take 1 tablet (600 mg total) by mouth 3 (three) times a day. 120 tablet 3 acetaminophen (TYLENOL) 500 mg tablet Take 2 tablets by mouth as needed. albuterol 2.5 mg /3 mL nebulizer solution as needed. atorvastatin (LIPITOR) 40 mg tablet Take 40 mg by mouth at bedtime. blood sugar diagnostic strips (Blood Glucose Test Strips) Test 3 times per day. Contour Next test JUDE ASCE blood-glucose meter kit Dispense meter, test strips, lancets covered by pt ins. E11.9 NIDDM type II- Test 4 times/day. Reason: High A1C citalopram (CeleXA) 20 mg tablet Take 30 mg by mouth every morning. clindamycin (CLEOCIN) 300 mg capsule Take 300 mg by mouth 4 (four) times a day. cyclobenzaprine (FLEXERIL) 10 mg tablet Take 10 mg by mouth 3 (three) times a day as needed. cyproheptadine (PERIACTIN) 4 mg tablet Take 4 mg by mouth as needed. diclofenac sodium (VOLTAREN) 75 mg EC tablet Take 75 mg by mouth as needed. dihydroergotamine (DHE) 1 mg/mL injection Inject 0.5-1 mg intramuscularly as needed. docusate sodium (COLACE) 100 mg capsule Take 2 capsules by mouth daily. esomeprazole (NexIUM) [address] capsule daily. fluconazole (DIFLUCAN) 150 mg tablet as needed. gabapentin (NEURONTIN) 300 mg capsule Take 1 capsule (300 mg total) by mouth 3 (three) times a day.Add one pill in the morning, increase weekly for maximum dose 900 mg in the morning and 1800 mg at night. 90 capsule 3 insulin lispro 100 unit/mL injection 3 (three) times a day. insulin syringe-needle U-100 0.3 mL 31 gauge x 5/16 syringe daily. ketorolac (TORADOL) 60 mg/2 mL intramuscular injection as needed. lancets Test 4 times per day. Lantus Solostar U-100 Insulin 100 unit/mL (3 mL) injection 2 (two) times a day. levothyroxine (SYNTHROID, LEVOTHROID) 200 mcg tablet daily. lisinopriL (PRINIVIL,ZESTRIL) 5 mg tablet Take 5 mg by mouth daily. lorata-dine D 10-240 mg per 24 hr tablet Take 1 tablet by mouth at bedtime. metoprolol succinate (TOPROL-XL) 25 mg 24 hr tablet Take 25 mg by mouth daily. naproxen (NAPROSYN) 500 mg tablet Take 1 tablet by mouth every 12 (twelve) hours as needed for mildpain or score 1-3 of 10. nystatin (NYSTOP) 100,000 unit/gram powder Apply 1 strip topically as needed. ondansetron (ZOFRAN) 4 mg tablet as needed. oxyCODONE-acetaminophen (PERCOCET) 5-325 mg per tablet Take 1 tablet by mouth as needed. pramipexole (MIRAPEX) 0.25 mg tablet Take 3-4 Tablets (0.75-1 mg) by mouth at bedtime. scopolamine base (TRANSDERM SCOP) 1 mg over [address] 1 patch on the skin every third day as needed. sodium fluoride-pot nitrate 1.1-5 % paste USE DOCTOR INSTRUCTED tiZANidine (ZANAFLEX) 4 mg tablet Take 4 mg by mouth at bedtime. Trulicity 3 mg/0.5 mL injection once a week. Saturdays UltiCare Pen Needle 31 gauge x 5/16 needle USE FOR ADMINISTERING INSULIN AT HOME Current Facility-Administered Medications Medication Dose Route Frequency Provider Last Rate Last Admin lactated ringers 20 mL/hr intravenous Continuous Robert Gibbons M.D. 20 mL/hr at 12/02/22 0814 20 mL/hr at 12/02/22 0814 lactated ringers 20 mL/hr intravenous Continuous Robert Gibbons M.D. Stopped at 12/05/22 1435 Allergies: Cefprozil, Iodine, Latex, Erythromycin, Levofloxacin, and Isosorbide mononitrate REVIEW OF SYSTEMS The following portions of the patient's history were reviewed and updated as appropriate: allergies, current medications, family history, medical history, social history, surgical history, and problem list. OBJECTIVE Please see media tab for scan detail PHYSICAL EXAM GENERAL: Alert and oriented MENTAL STATUS: Appropriate affect appropriate response to examination questioning EYES: 3 mm LUNGS: Nonlabored breathing non altered phonation of voice SKIN: No rashes lesions or erythema at injection sites please see procedural note for detail MUSCULOSKELETAL: Palpation: No pain with palpation of the spinal processes of the lumbar spine however myofascial pain with palpation of the surrounding musculature Provocative Maneuvers: Denies pain with straight leg raise push pull full come force extension flexion and rotation of the lumbosacral junction continues to have knee pain secondary to acute injury NEUROLOGIC: Strength: 5/5 Sensation: 5/5 Reflexes: 5/5 GAIT: Antalgic at present secondary to immobilization brace in recent MCL injury right side ASSESSMENT / PLAN #1 Pain Myofascial - PM Trigger point injection #2 Pain Knee Right #3 Spondylosis Lumbar Without Myelopathy #4 Neuropathy Peripheral #5 Radiculopathy #6 Myofascial Pain Syndrome Other orders - Pain Medicine office visit (clinic) - gabapentin (NEURONTIN) 600 mg tablet; Take 1 tablet (600 mg total) by mouth 3 (three) times a day., Starting Ladonna 01/12/2023, Normal - Pain Medicine office visit (clinic); Future; Expected date: 04/14/2023 Appropriate to move forward with trigger point injection see procedural note for details. She also requests a handicap parking signature happy to sign this for her filled out and returned to patient.She is provided notation from her visit 2 days prior that is not currently available in [facility] these will be scanned into the media tab for further review in the future. We will have her return to [facility] in 6 weeks' time to evaluate efficacy of ongoing lumbosacral treatments. As well as evaluation ofan improvement in her MCL pain. Would be reasonable to consider alteration between previous LAKEISHA versus RFA dependent on lumbosacral pain presentation. All questions were answered at this time patientin agreement with this plan.Answers submitted by the patient for this visit: General Review of Systems (Submitted on 09/27/2022) Fatigue: Yes Visual problems: Yes Sinus congestion: Yes No heart issues: Yes Shortness of breath: Yes Nausea: Yes Constipation: Yes Pain or stiffness in the joints: Yes Back pain/stiffness: Yes No skin issues: Yes Numbness or shooting pain in hands, arms, legs or feet: Yes Weakness in arms and/or legs: Yes Feeling nervous, anxious or on edge: Yes No blood/lymph issues: Yes No urinary/reproductive issues: Yes documented in this encounter Procedure Notes * Estefany Dee APRN C.N.P., M.S.N. - 01/12/2023 11:00 AM CDTAssociated Order(s): PM Trigger point injection Post-Procedure Diagnose(s): Pain Myofascial PM Trigger point injection (right lumbar and left lumbar) Performed by: Estefany Dee APRN, C.N.P., M.S.N. Authorized by: Estefany Dee APRN, C.N.PShamika, M.S.N. Care team members present 1. Robert Gibbons M.D. PROCEDURE SUMMARY Indication: myofacial pain lumbar region bilateral facia Pre procedure pain score: 7/10 Post procedure pain score: 4/10 Soft tissue site: right lumbar and left lumbar Lumbar: Lumbar position: prone Needle size: 25 G and 22 G Needle length: 2 in Number of muscles injected: 1 or 2 muscles INJECTED MEDICATIONS 5 mL BUPivacaine 0.25 % (2.5 mg/mL) 10 mg triamcinolone acetonide 40 mg/mL PROCEDURE DETAILS Lumbar procedure description: The patient was placed in the apappropriate position. Prior to the procedure, the lumbar region was examined to determine the location of the trigger point(s) and optimal needle path. Thereafter, a needle was advanced into the trigger point(s) and after negative aspiration, the medication was injected. Following the injection, the needle was withdrawn. The patient tolerated the procedure well and there were no apparent complications. After an appropriate amount of observation, the patient was dismissed from the clinic in good condition under their own power. Complications: no apparent complications CONSENT Consent obtained: written (Risks, benefits and [...] preparation: Chlorhexidine SEDATION / ANESTHESIA Anesthesia method: local infiltration ATTESTATION STATEMENT An LUIS participated or performed the procedure. The obiee consultant participated in or was aware of the procedure. 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 [address] [place] [phone] Scheduled Referrals Name Type Priority Associated Diagnoses Orde r Schedule Pain Medicine office visit (clinic) Outpatient Referral Routine Expected: 04/14/2023 (Approximate), Expires: 04/14/2024 documented as of this encounter Procedures Procedure Name Priority Date/Time Associated Diagnosis Comments IL INJ TRIGGER PNT<=2 MUS Routine 01/12/2023 11:00 AM CDT Pain Myofascial documented in this encounter Results * IL INJ TRIGGER PNT<=2 MUS (01/12/2023 11:00 AM CDT) Narrative MMODAL - 01/12/2023 11:00 AM CDT Estefany Dee APRN, C.N.P., M.S.N. ? 01/12/2023 ??4:39 PM PM Trigger point injection (right lumbar and left lumbar) Performed by: Estefany Dee APRN, C.N.P., M.S.N. Authorized by: Estefany Dee APRN, C.N.P., M.S.N. ?? Care team members present 1. Robert Gibbons M.D. PROCEDURE SUMMARY ?? Indication: myofacial pain lumbar region bilateral facia Pre procedure pain score: 7/10 Post procedure pain score: 4/10 Soft tissue site: right lumbar and left lumbar Lumbar: Lumbar position: prone Needle size: 25 G and 22 G Needle length: 2 in Number of muscles injected: 1 or 2 muscles INJECTED MEDICATIONS 5 mL BUPivacaine 0.25 % (2.5 mg/mL) 10 mg triamcinolone acetonide 40 mg/mL PROCEDURE DETAILS Lumbar procedure description: The patient was placed in the apappropriate position. ??Prior to the procedure, the lumbar region was examined to determine the location of the trigger point(s) and optimal needle path. Thereafter, a needle was advanced into the trigger point(s) and after negative aspiration, the medication was injected. Following the injection, the needle was withdrawn. ??The patient tolerated the procedure well and there were no apparent complications. ??After an appropriate amount of observation, the patient was dismissed from the clinic in good condition under their own power. ?? Complications: no apparent complications ?? CONSENT Consent obtained: written (Risks, benefits and [...] preparation: ??Chlorhexidine SEDATION / ANESTHESIA Anesthesia method: local infiltration ATTESTATION STATEMENT An LUIS participated or performed the procedure. The obiee consultant participated in or was aware of the procedure. Estefany Dee APRN, C.N.P., M.S.N. P ROCEDURE/MINOR SURGICAL ORDERABLES Performing Organization Address City/State/[facility] Co de Phone Number MMODAL NA documented in this encounter Visit Diagnoses Diagnosis Pain Myofascial- Primary Pain Knee Right Spondylosis Lumbar Without Myelopathy Neuropathy Peripheral Radiculopathy Myofascial Pain Syndrome documented in this encounter Administered Medications Inactive Administered Medications - up to 3 most recent administrations Medication Order MAR Action Action Date Dose Rate Site BUPivacaine 0.25 % (2.5 mg/mL) injection 5 mL (MARCAINE) 5 mL, injection, One-Time Injection, Starting on Mon01/12/23 at 1100, For 1 dose Given 01/12/2023 11:00 AM CDT 5 mL triamcinolone acetonide injection 10 mg (KENALOG-40) 10 mg, injection, One-Time Injection, Starting on Mon01/12/23 at 1100, For 1 dose Given 01/12/2023 11:00 AM CDT 10 mg documented in this encounter Care Teams Low Heel Builder Relationship Specialty Start Date End Date Elsewhere, Pcp PCP - General Internal Medicine 09/30/22 documented as of this encounter
--- OUTSIDE RECORDS SUMMARY | 2023-08-16 08:15 | XMS_ITS | Encounter Summary ---
Author Name Unknown Organization [facility] Address [address] [place] [address] Care Team Providers Care Deputy Head Name Role Phone Elsewhere, Pcp Primary Care Provider Unavailabl e Reason for Referral * Outpatient (Routine) - Closed Specialty Diagnoses / Procedures Referred By Contac t Referred To Contact Pain Medicine Amelia Salgado APRN, CNS, D.N.P. [address] [place] [phone] [facility] Referral ID Status Reason Start Date Expiration Date Visits Re quested Visits Authorized [id number] Closed 03/02/2023 03/01/2026 1 1 Scheduling Instructions Pre-gonda before repeat RFA. * Outpatient (Routine) - Closed Specialty Diagnoses / Procedures Referred By Contac t Referred To Contact Pain Medicine Amelia Salgado APRN, CNS, D.N.P. [address] [place] [phone] [facility] Referral ID Status Reason Start Date Expiration Date Visits Re quested Visits Authorized [id number] Closed 03/02/2023 03/01/2026 1 1 Scheduling Instructions Pre-procedure prior to PAUS TPI * Outpatient (Routine) - Closed Specialty Diagnoses / Procedures Referred By Contac t Referred To Contact Diagnoses Spondylosis Lumbar Without Myelopathy Pain Low Back Unspecified Procedures FL Lumbar Spine Radiofrequency Denervation FL DEST LUMB/SAC FACET JT FL DEST LUMB/SAC FACET JT Amelia English APRN, CNS, D.N.P. [address] [place] [phone] [facility] Referral ID Status Reason Start Date Expiration Date Visits Re quested Visits Authorized [id number] Closed 03/02/2023 03/01/2024 1 1 * Outpatient (Routine) - Closed Specialty Diagnoses / Procedures Referred By Contac t Referred To Contact Diagnoses Spondylosis Lumbar Without Myelopathy Pain Low Back Unspecified Procedures FL Lumbar Spine Radiofrequency Denervation FL DEST LUMB/SAC FACET JT FL DEST LUMB/SAC FACET JT Amelia English APRN, CNS, D.N.P. [address] [place] [phone] [facility] Referral ID Status Reason Start Date Expiration Date Visits Re quested Visits Authorized [id number] Closed 03/02/2023 03/01/2024 1 1 * Outpatient (Routine) - Closed Specialty Diagnoses / Procedures Referred By Contac t Referred To Contact Diagnoses Pain Myofascial Procedures PM Trigger point injection Amelia Salgado APRN, CNS, D.N.P. [address] [place] [phone] [facility] Referral ID Status Reason Start Date Expiration Date Visits Re quested Visits Authorized [id number] Closed 03/02/2023 03/01/2024 1 1 Reason for Visit * Outpatient (Routine) - Closed Specialty Diagnoses / Procedures Referred By Edgar aaron Referred To Contact Pain Medicine Estefany Dee APRN, C.N.P., M.S.N. [address] [place] [phone] [facility] Referral ID Status Reason Start Date Expiration Date Visits Re quested Visits Authorized [id number] Closed 01/12/2023 01/11/2026 1 1 Encounter Details Date Type Department Care Team (Late st Contact Info) Description 03/02/2023 11:30 AM CDT Office Visit Division of Pain Medicine in [place], [place] [address] [place] [phone] Amelia Salgado APRN, BHANU, D.N.P. [address] [place] [phone] Pain Low Back Unspecified (Primary Dx); Spondylosis Lumbar Without Myelopathy; Neuropathy Peripheral; Pain Myofascial Social History Tobacco Use Types [...] often do you attend chur ch or jew services? Never 09/27/2022 Do you belong to any clubs o r organizations such as anabaptism groups, unions, fraternal or athletic groups, or [...] and heating? Not hard at all 01/05/2023 [facility] - Occupational [...] your living situation today? I have a [facility] place to live 01/05/2023 Education Answer [...] of this encounter Progress Notes * Amelia Salgado, DANYEL, DOBBY LOOM WEAVER, D.N.P. - 03/02/2023 11:30 AM CDT Images from the original note were not included. SUBJECTIVE CHIEF COMPLAINT / REASON FOR VISIT Laura Madrid presents today in follow-up of: Low back pain Lumbar spondylosis without myelopathy Peripheral neuropathy HISTORY OF PRESENT ILLNESS Laura Madrid is a 52 y.o. female with a history of post COVID syndrome, lumbosacral radiculopathy, peripheral neuropathy, low back pain, diabetes mellitus, and migraine headaches whom has been followed in the Pain Clinic for low back pain and lumbar radiculopathy. Initial consultation tookplace with Courtney Sandhu, DANYEL, DATA MANAGEMENT ASSOCIATE, MSN in conjunction with Dr. Gibbons whom patient had been previously seeing at [facility] in the [facility]. I would refer the interested reader to this note for full details of the evaluation. Briefly patient endorses similar pain characteristics to previous evaluation in which the pain is located in the low back at the midline with radiation through the buttocks. Patient denies radicular symptoms through the lower extremities at today's evaluation. Patient underwent lumbar spine radiofrequency ablation targeting L4-5/ L5- S1 in November 2022 in which she endorses 80-90% improvement of symptoms. She was doing well until she unfortunately sustained a right MCL injury in December 2022 in which patient endorses pain reoccurrence since this time with alteration of her gait. On 01/12/23 patient underwent lumbar paraspinal trigger point injections targeting myofascial related pain in which she endorses 70% improvement that lasted approximately 2 weeks before gradual pain reoccurrence. Patientcontinues both land and water physical therapy at [facility] in the [facility]. Aggravating factors include weight-bearing activity such as standing and walking. Alleviating factors include sitting and lying down. Conservative treatments include ice/heat, massage, medicare nurse, TENS unit, acupuncture, and physical therapy. Medication management include: Pain Medications acetaminophen (TYLENOL) 500 mg tablet Take 2 tablets by mouth as needed. citalopram (CeleXA) 20 mg tablet Take 30 mg by mouth every morning. cyclobenzaprine (FLEXERIL) 10 mg tablet Take 10 mg by mouth 3 (three) times a day as needed. diclofenac sodium (VOLTAREN) 75 mg EC tablet Take 75 mg by mouth as needed. gabapentin (NEURONTIN) 300 mg capsule [...] 60 mg/2 mL intramuscular injection as needed. naproxen (NAPROSYN) 500 mg tablet Take 1 tablet by mouth every 12 (twelve) hours as needed for mildpain or score 1-3 of 10. oxyCODONE-acetaminophen (PERCOCET) 5-325 mg per tablet Take 1 tablet by mouth as needed. tiZANidine (ZANAFLEX) 4 mg tablet Take 4 mg by mouth at bedtime. Interventional/Procedures include previous epidural steroid injections targeting lumbar radiculopathy at outside facility. Laura Madrid denies recent fevers, chills, infections or antibiotics. No allergies to local anesthetic, corticosteroid, or contrast dye. No anticoagulation. No recent bowel or bladder changes. No unintentional weight loss or weight gain. Pain score today: 6/10. OBJECTIVE REVIEW OF SYSTEMS: Laura Madrid's history was reviewed including allergies, current medications, and problem list. PHYSICAL EXAM GENERAL: Pleasant, 52 y.o. female, in no acute distress. HEAD: Normocephalic and atraumatic. EYES: Pupils 3-4 mm. LUNGS: Unlabored respirations. SKIN: Inspection of the lumbosacral paraspinous dry and intact, absent of erythema, lesions, rashes, or infections. GAIT: Antalgic. Ambulates without assistive device. Difficulty with heel and toe walk. MUSCULOSKELETAL: Palpation about the lumbosacral paraspinal with some localized tenderness at approximately the L4-5 level. SPINE: ROM: Flexion and extension intact with reproducible pain. MANEUVERS: Facet provocative maneuvers positive bilaterally, right greater than left. NEURO: STRENGTH (scale: 5=normal to 0=plegic; right/left): 5/5 bilateral lower extremities. SENSATION: Grossly intact to light touch bilateral lower extremities. MENTAL: Alert, oriented, appropriate mood and affect, recent and remote memory intact. ASSESSMENT / PLAN Low back pain Lumbar spondylosis without myelopathy Peripheral neuropathy Laura Madrid is a 52 y.o. female with a history of post COVID syndrome, lumbosacral radiculopathy, peripheral neuropathy, low back pain, diabetes mellitus, nd migraine headaches. Findings onevaluation are consistent with facet mediated as well as myofascial related pain. MEDICAL DECISION MAKING 1. Physical therapy: patient will continue conservative measures with PT via prescribed plan at [facility]. 2. Medications: Patient I discussed neuropathic pain agents, she is currently taking gabapentin 900mg in the morning an 1800 mg in the evening. We discussed optimal therapeutic dosing at 3 times daily in which patient reported no adverse side effects related to medication but difficulty with getting middle of the day dosing. We discussed trial of switching agents to pregabalin, starting at 225 mg twice daily. Patient was agreeable and will contact the Pain Clinic if she experiences adverse side effects related to this transition in at which point we would resort back to gabapentin. In addition patient could benefit from topical lidocaine patches to facilitate with myofascial related pain. 3. Interventions: We discussed a repeat lumbar paraspinal trigger point injections when she would be eligible at the end of March 2023. Appropriate orders have been placed, patient will present for a preprocedure visit prior to these injections. Additionally consideration of repeat lumbar spine radiofrequency ablation which patient would be eligible May 2023. Appropriate orders have beenplaced, patient will present for preprocedure evaluation via F2F, virtual, or phone prior to ablation procedure. FOLLOW-UP Patient will contact the Pain Clinic as needed. Total time: 30 minutes with face to [...] the patient agreed to proceed. PRO Scores: 12/17/2022 5:42 PM 12/17/2022 5:43 PM 12/17/2022 5:44 PM [facility] PROMIS-CAT: Pain interference 56 (mild) PROMIS-CAT: Physical function 32 (moderate dysfunction) PROMIS SHORT FORM (Pain Intensity): Pain rating (avg.) 1 There were no vitals taken for this visit. There is no height or weight on file to calculate BMI. Answers submitted by the patient for this visit: [...] blood/lymph issues: Yes No urinary/reproductive issues: Yes * Robert Gibbons M.D. - 03/02/2023 11:30 AM CDT Pain Medicine Note This is a supervisory note for Amelia Salgado from the same date. Their documentation should be included as part of my own for billing and clinical care. It was great to see Ms. Mercy shoemaker. We discussed her pain and had a nice conversation about her family. She continues to have some pain in the low back which was aggravated after her knee injury. This is unfortunate because she was doing very well after her RFA but had this setback after the kneemeniscal injury. She also has peripheral neuropathy but this is well controlled. She has noticed her toes curling over lately, but denies any other symptoms. I told her to keep an eye on that and letme know if it worsens. Plan: - Rotate from gabapentin to Lyrica. Start at 225 mg BID. - Plan for TPI next month into the lower back. - Plan to repeat RFA when timing is appropriate. - I told her we could perform occipital nerve blocks, if needed, for her ON in the future. Nikko Gibbons MD Pain Medicine documented in this encounter Plan of Treatment Upcoming Encounters Date Type Department Care Team (Late st Contact Info) Description 09/19/2023 9:00 AM ASSISTANT PROJECT ENGINEER Telemedicine Division of Pain Medicine in [place], [place] [address] [place] [phone] Carey Hinkle, DANYEL, DOBBY LOOM WEAVER, M.S. [address] [place] [address] Scheduled Referrals Name Type Priority Associated Diagnoses Orde r Schedule Pain Medicine office visit (clinic) Outpatient Referral Routine Expected: 03/25/2023, Expires: 06/02/2024 Pain Medicine office visit (clinic) Outpatient Referral Routine Expected: 05/30/2023, Expires: 06/02/2024 documented as of this encounter Results * FL Lumbar Spine Radiofrequency Denervation (06/15/2023 9:08 AM ASSISTANT PROJECT ENGINEER) Narrative [facility] - 06/15/2023 9:00 AM Sarah Montoya M.D. ? 06/15/2023 ??9:26 AM FL Lumbar Spine Radiofrequency Denervation Performed by: Sarah Carranza M.D. Authorized by: Amelia Salgado APRN, CNS, D.NShamikaP. ?? Care team members present 1. Zaki [...] fellow participated in the procedure, and the field sales consultant was present for the entire procedure. OPERATIVE NOTE INFORMATION Specimens: 0 Drains: 0 Estimated blood loss: 0 Implants: 0 BHANU Paul APRN, D.N.P. FLUOR O GUIDED PAIN PROCEDURES [facility] NA * FL Lumbar Spine Radiofrequency Denervation (06/14/2023 2:25 PM ASSISTANT PROJECT ENGINEER) Narrative [facility] - 06/14/2023 1:30 PM ASSISTANT PROJECT ENGINEER Zabrina Restrepo M.D. ? 06/14/2023 ??4:32 PM FL Lumbar Spine Radiofrequency Denervation Performed by: Zabrina Restrepo M.D. Authorized by: Amelia Salgado APRN, CNS, D.N.P. ?? Care team members present 1. Rio Mejia M.D. 2. Brie Estes L.P.N. PROCEDURE SUMMARY Indications: [...] fellow participated in the procedure, and the field sales consultant was present for the entire procedure. OPERATIVE NOTE INFORMATION Specimens: 0 Drains: 0 Estimated blood loss: 0 Implants: 0 Amelia Salgado APRN, BHANU, D.N.P. FLUOR O GUIDED PAIN PROCEDURES [facility] NA * FL INJ TRIGGER PNT<=2 MUS, FL US GUIDE PLC NDL (04/14/2023 3:30 PM CDT) Narrative [facility] - 04/14/2023 3:30 PM CDT Chris Gan D.O., M.P.H. ? 04/14/2023 ??3:22 PM PM Trigger point injection (left PSIS and right PSIS) Performed by: Chris Gan D.O., M.P.H. Authorized by: Amelia Salgado APRN, CNS, D.N.P. ?? Care team members present 1. Leigh Coe L.P.N. PROCEDURE SUMMARY ?? Indication: Myofascial Pain Pre procedure pain score: 5/10 Post procedure pain score: 0/10 Soft tissue site: left PSIS and right PSIS PSIS: Gluteus muscle Preparation: Patient was prepped and draped in usual sterile fashion ?? Needle size: 25 G Needle length: 3.5 in Number of muscles injected: 1 or 2 muscles IMAGING Ultrasound image guidance used to localize target, identify at risk structures, and dynamically used to direct therapy to the target. Image(s) acquired and saved. Ultrasound probe (MHz): convex low/mid-frequency Needle visualization: in-plane INJECTED MEDICATIONS The injected medication(s) listed was divided equally between the identified injection location(s) ?? Total volume of injectate (mL): ??10 Total steroid in injectate (mg): ??40 ?? 9 mL BUPivacaine 0.5 % (5 mg/mL) 40 mg triamcinolone acetonide 40 mg/mL PROCEDURE [...] ?? Complications: no apparent complications ?? Comments Excellent gluteal spread about the tender region of the PSIS bilaterally. ?? Tolerated well. CONSENT Consent obtained: written (Risks, benefits and [...] SEDATION / ANESTHESIA Anesthesia method: local infiltration Local infiltrate type: lidocaine ATTESTATION STATEMENT The teaching physician rule is not applicable. OPERATIVE NOTE INFORMATION Specimens: 0 Drains: 0 Estimated blood loss: 0 Implants: 0 Amelia Salgado APRN, DOBBY LOOM WEAVER, D.N.P. PROCE DURE/MINOR SURGICAL ORDERABLES [facility] NA documented in this encounter Visit Diagnoses Diagnosis Pain Low Back Unspecified- Primary Spondylosis Lumbar Without Myelopathy Neuropathy Peripheral Pain Myofascial Pain Myofascial Spondylosis Lumbar Without Myelopathy Pain Low Back 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 Pain Low Back Unspecified documented in this encounter Care Teams Deputy Head Relationship Specialty Start Date End Date Elsewhere, Pcp PCP - General Internal Medicine 09/30/22 documented as of this encounter
--- OUTSIDE RECORDS SUMMARY | 2023-08-16 08:15 | XMS_ITS | Encounter Summary ---
Author Name Unknown Organization [facility] Address [address] [place] [address] Care Team Providers Care Solar Sales Consultant Name Role Phone Elsewhere, Pcp Primary Care Provider Unavailabl e Reason for Visit * Reason Onset Date Comments Pre-visit Intake 04/13/2023 Encounter Details Date Type Department Care Team (Latest Contact Info) Description 04/13/2023 12:30 PM CDT Clinical Communication Virtual Review in [place], [place] [address] [place] [address] Pre-visit Intake Social History Tobacco Use Types [...] often do you attend chur ch or presybeterian services? Never 09/27/2022 Do you [...] and heating? Not hard at all 01/05/2023 [facility] - Occupational [...] your living situation today? I have a [facility] place to live 01/05/2023 Education Answer [...] st Contact Info) Description 09/19/2023 9:00 AM GAS ANALYST Telemedicine Division of Pain Medicine in [place], [place] [address] [place] [address] Carey Hinkle APRN, INVENTORY CONTROLLER, M.S. [address] [place] [phone] documented as of this encounter Visit Diagnoses Not on filedocumented in this encounter Care Teams Solar Sales Consultant Relationship Specialty Start Date End Date Elsewhere, Pcp PCP - General Internal Medicine 09/30/22 documented as of this encounter
--- OUTSIDE RECORDS SUMMARY | 2023-08-16 08:15 | XMS_ITS | Encounter Summary ---
Author Name Unknown Organization [facility] Address [address] [place] [address] Care Team Providers Care Scrap Metal Burner Name Role Phone Elsewhere, Pcp Primary Care Provider Unavailabl e Reason for Referral * Outpatient (Routine) - Closed Specialty Diagnoses / Procedures Referred By Contac t Referred To Contact Diagnoses Spondylosis Lumbar Without Myelopathy Procedures FL Lumbar Spine Radiofrequency Denervation TX DEST LUMB/SAC FACET JT TX DEST LUMB/SAC FACET JT Courtney Hamm APRN, C.N.P., M.S.N. [address] [place] [phone] [facility] Referral ID Status Reason Start Date Expiration Date Visits Re quested Visits Authorized [id number] Closed 11/04/2022 11/04/2023 1 1 Reason for Visit * Outpatient (Routine) - Closed Specialty Diagnoses / Procedures Referred By Contac t Referred To Contact Diagnoses Spondylosis Lumbar Without Myelopathy Procedures FL Lumbar Spine Radiofrequency Denervation TX DEST LUMB/SAC FACET JT TX DEST LUMB/SAC FACET JT Courtney Hamm APRN, C.N.P., M.S.N. [address] [place] [phone] [facility] Referral ID Status Reason Start Date Expiration Date Visits Re quested Visits Authorized [id number] Closed 11/04/2022 11/04/2023 1 1 Encounter Details Date Type Department Care Team (Latest Contact Info) Description 12/05/2022 12:41 PM CDT - 12/05/2022 11:59 PM CDT Hospital Encounter Division of Pain Medicine in [place], [place] [address] [place] [phone] Courtney Sandhu APRN, C.N.P., M.S.N. [address] [place] [phone] Spondylosis Lumbar Without Myelopathy Discharge Disposition: Home or Self Care Social [...] afraid of your partner or ex-partner? No 09/27/2022 Within the last year, have y ou been humiliated or emotionally abused in other ways by your partner or ex-partner? No Within the last year, have y ou been kicked, hit, slapped, or otherwise physically hurt by your partner or ex-partner? No 09/27/2022 Within the last year, have y ou been raped or forced to have any kind of sexual activity by your partner or ex-partner? No 09/27/2022 Social Connection and Isolat ion Panel [NHANES] Answer Date Recorded In a typical week, how many times do you talk on the phone with family, friends, or neighbors? More than three times a week 09/27/2022 How often do you get togethe r with friends or relatives? Once a week 09/27/2022 How often do you attend chur ch or druze services? Never 09/27/2022 Do you belong to any clubs o r organizations such as mormonism groups, unions, fraternal or athletic groups, or [...] like food, housing, medical care, and heating? Somewhat hard 09/27/2022 [facility] - Occupational [...] the money to buy more. Never true 09/28/19 23 Within the past 12 months, t he food you bought just didn't last and you didn't have money to get more. Never true 09/27/2022 PRAPARE - Transportation Answer Date Re corded In the past 12 months, has l ack of transportation kept you from medical appointments or from getting medications? No 09/14 In the past 12 months, has l ack of transportation kept you from meetings, work, or from getting things needed for daily living? No 09/27/2022 Housing Stability Vital Sign Answer Zack e Recorded In the last 12 months, was t here a time when you were not able to pay the mortgage or rent on time? No 09/27/2022 In the last 12 months, how many places have you lived? 1 09/27/2022 In the last 12 months, was t here a time when you did not have a steady place to sleep or slept in a jail (including now)? No 09/27/2022 Nutrition Answer Date Recorded Nutrition: EVOO Fat [...] Employed and actively working without restrictions 09/27/2022 Education Answer Date Recorded What is the [...] Sign Reading Time Taken Comments Blood Pressure 101/65 12/05/2022 2:30 PM CDT Pulse 75 12/05/2022 2:30 PM CDT Temperature 36.9 ??C (98.4 ??F) 12/05/2022 2:04 PM CD T Respiratory Rate 12 12/05/2022 2:30 PM CDT Oxygen Saturation 95% 12/05/2022 2:30 PM CDT Inhaled Oxygen Concentration - - Weight - [...] 4 times/day. Reason: High A1C 0 09/01/2020 cyclobenzaprine (FLEXERIL) 10 mg tablet Take 10 [...] mg) by mouth at bedtime. 0 09/04/2022 scopolamine base (TRANSDERM SCOP) 1 mg over [address] 1 patch on the skin every third day as needed. 0 06/03/2022 sodium fluoride-pot nitrate 1.1-5 % paste USE DOCTOR INSTRUCTED 0 10/17/2020 UltiCare Pen Needle 31 gauge x 5/16 needle USE FOR ADMINISTERING INSULIN AT HOME 0 08/03/2022 albuterol 2.5 mg /3 mL nebulizer solution as needed. 0 07/08/2022 06/14/2023 citalopram (CeleXA) 20 mg tablet Take 20 mg by mouth daily. 0 07/15/2022 01/10/2023 docusate sodium (COLACE) 100 mg capsule Take [...] 3 10/04/2022 06/14/2023 gabapentin (NEURONTIN) 600 mg tabletIndications:My ofascial Pain Syndrome,Radiculopat hy,Neuropathy Peripheral Take 1 tablet (600 mg total) by mouth 3 (three) times a day. 120 tablet 3 10/04/2022 01/12/2023 latanoprost (XALATAN) 0.005 % ophthalmic solution at bedtime. 0 07/29/2022 01/11/20 tiZANidine (ZANAFLEX) 4 mg tablet Take 4 mg by mouth at bedtime. 0 09/13/2022 03/02/2023 documented as of this encounter Procedure Notes * Robert Gibbons M.D. - 12/05/2022 2:00 PM CDTAssociated Order(s): FL Lumbar Spine Radiofrequency Denervation Pre-Procedure Diagnose(s): Spondylosis Lumbar Without Myelopathy Post-Procedure Diagnose(s): Spondylosis Lumbar Without Myelopathy FL Lumbar Spine Radiofrequency Denervation Performed by: Robert Gibbons M.D. Authorized by: Courtney Sandhu APRN, C.N.P., M.S.N. Care team members present 1. Judy Morton L.P.N. PROCEDURE SUMMARY Indications: Spondylosis without myelopathy Pre-procedural pain: 0/10 Post-procedural pain: 0/10 Site: lumbar Lumbar: medial branch radiofrequency Radiofrequency ablation of the Left L4-L5 and Left L5-S1 facet joints Double burn: yes RFA needles were rotated 90 degrees Needle or RF cannula: RF cannula RF cannula size: 18 G RF cannula length: 145 mm Patient position: prone IMAGING Fluoroscopic image guidance [...] in good condition under their own power. ADDITIONAL PROCEDURE COMMENTS Tolerated well. No complications. CONSENT Consent obtained: written (Risks, benefits and [...] the procedure (see nursing documentation). ATTESTATION STATEMENT The teaching physician rule is not applicable. OPERATIVE NOTE INFORMATION Specimens: 0 Drains: 0 Estimated blood loss: 0 Implants: 0 documented in this encounter Plan of Treatment Upcoming Encounters Date Type Department Care Team (Late st Contact Info) Description 09/19/2023 9:00 AM SENIOR ENVIRONMENTAL TECHNICIAN Telemedicine Division of Pain Medicine in [place], [place] [address] [place] [phone] Carey Hinkle APRN, SCENIC ARTIST, M.S. [address] [place] [phone] documented as of this encounter Procedures Procedure Name Priority Date/Time Associated Diagnosis Comments FL LUMBAR SPINE RADIOFREQUENCY DENERVATION Routine 12/05/2022 2:02 PM CDT Spondylosis Lumbar Without Myelopathy documented in this encounter Results * FL Lumbar Spine Radiofrequency Denervation (12/05/2022 2:02 PM CDT) Narrative MMODAL - 12/05/2022 2:00 PM CDT Robert Gibbons M.D. ? 12/05/2022 ??2:05 PM FL Lumbar Spine Radiofrequency Denervation Performed by: Robert Gibbons M.D. Authorized by: Courtney Sandhu APRN, C.N.P., M.S.N. ?? Care team members present 1. Judy Morton L.P.N. PROCEDURE SUMMARY Indications: Spondylosis without myelopathy Pre-procedural pain: 0/10 Post-procedural pain: 0/10 Site: lumbar Lumbar: medial branch radiofrequency Radiofrequency ablation of the Left L4-L5 and Left L5-S1 facet joints Double burn: yes RFA needles were rotated 90 degrees Needle or RF cannula: RF cannula RF cannula size: 18 G RF cannula length: 145 mm Patient position: prone IMAGING Fluoroscopic image guidance [...] good condition under their own power. ? ADDITIONAL PROCEDURE COMMENTS Tolerated well. No complications. CONSENT Consent obtained: written (Risks, benefits and [...] the procedure (see nursing documentation). ATTESTATION STATEMENT The teaching physician rule is not applicable. OPERATIVE NOTE INFORMATION Specimens: 0 Drains: 0 Estimated blood loss: 0 Implants: 0 Courtney Sandhu APRN C.N.P., M.S.N. F RICHARD GUIDED PAIN PROCEDURES MMODAL NA documented in this encounter Visit Diagnoses Diagnosis Spondylosis Lumbar Without Myelopathy documented in this encounter Administered Medications Active Administered Medications - up to 3 most recent administrations Medication Order MAR Action Action Date Dose Rate Site lactated ringers 20 mL/hr, intravenous, Continuous, Starting on 12/05/22 at 1330 New Bag 06/14/2023 12:57 PM SENIOR ENVIRONMENTAL TECHNICIAN 20 mL/hr 20 mL/hr New Bag 12/05/2022 1:26 PM CDT 20 mL/hr 20 mL/hr Inactive Administered Medications - up to 3 most recent administrations Medication Order MAR Action Action Date Dose Rate Site BUPivacaine 0.5 % (5 mg/mL) injection 6 mL (MARCAINE) 6 mL, injection, One-Time Injection, Starting on Mon12/05/22 at 1400, For 1 dose Given 12/05/2022 2:00 PM CDT 6 mL fentaNYL injection (SUBLIMAZE) intravenous, As needed, Starting on Mon12/05/22 at 1348, Intra-Op Given 12/05/2022 1:48 PM CDT 50 mcg lidocaine 20 mg/mL injection 3 mL (XYLOCAINE) 3 mL, injection, One-Time Injection, Starting on Mon12/05/22 at 1400, For 1 dose Given 12/05/2022 2:00 PM CDT 3 mL midazolam (PF) injection (VERSED) As needed, Starting on Mon12/05/22 at 1348, Intra-Op Given 12/05/2022 1:48 PM CDT 2 mg documented in this encounter Care Teams Scrap Metal Burner Relationship Specialty Start Date End Date Elsewhere, Pcp PCP - General Internal Medicine 09/30/22 documented as of this encounter
--- OUTSIDE RECORDS SUMMARY | 2023-08-16 08:15 | XMS_ITS | Encounter Summary ---
Author Name Unknown Organization [facility] Address [address] [place] [address] Care Team Providers Care Replenishment Specialist Name Role Phone Elsewhere, Pcp Primary Care Provider Unavailabl e Reason for Visit * Outpatient (Routine) - Closed Specialty Diagnoses / Procedures Referred By Contac t Referred To Contact Diagnoses Pain Myofascial Procedures PM Trigger point injection Amelia Salgado APRN, BHANU, D.N.P. [address] [place] [phone] [facility] Referral ID Status Reason Start Date Expiration Date Visits Re quested Visits Authorized [id number] Closed 03/02/2023 03/01/2024 1 1 Encounter Details Date Type Department Care Team (Late st Contact Info) Description 04/14/2023 3:30 PM CDT Procedure visit Division of Pain Medicine in [place], [place] [address] [place] [phone] Chris Gan D.O., M.P.H. [address] [place] [phone] Pain Myofascial Social History Tobacco Use Types [...] often do you attend chur ch or quaker services? Never 09/27/2022 Do you belong to any clubs o r organizations such as adventism groups, unions, fraternal or athletic groups, or [...] and heating? Not hard at all 01/05/2023 [facility] [place] Occupat ional Health - Occupational Stress [...] your living situation today? I have a [facility] place to live 01/05/2023 Education Answer [...] as of this encounter Procedure Notes * Chris Gan D.O., M.P.H. - 04/14/2023 3:30 PM CDTAssociated Order(s): PM Trigger point injection Pre-Procedure Diagnose(s): Pain Myofascial Post-Procedure Diagnose(s): Pain Myofascial PM Trigger point injection (left PSIS and right PSIS) Performed by: Chris Gan D.O., M.P.H. Authorized by: Amelia Salgado APRN, CNS, Amilcar.N.P. Care team members present 1. Leigh Coe L.P.N. PROCEDURE SUMMARY Indication: Myofascial Pain Pre procedure pain score: 5/10 Post procedure pain score: 0/10 Soft tissue site: left PSIS and right PSIS PSIS: Gluteus muscle Preparation: Patient was prepped and draped in usual sterile fashion Needle size: 25 G Needle length: 3.5 [...] 10 Total steroid in injectate (mg): 40 9 mL BUPivacaine 0.5 % (5 mg/mL) [...] own power. Complications: no apparent complications Comments Excellent gluteal spread about the tender region of the PSIS bilaterally. Tolerated well. CONSENT Consent obtained: written (Risks, [...] st Contact Info) Description 09/19/2023 9:00 AM COMBUSTION ENGINEER Telemedicine Division of Pain Medicine in [place], [place] [address] [place] [phone] Carey Hinkle APRN, LITHOSTRIPPER, M.S. [address] [place] [phone] documented as of this encounter Procedures Procedure Name Priority Date/Time Associated Diagnosis Comments PA US GUIDE PLC NDL Routine 04/14/2023 3 :30 PM CDT Pain Myofascial PA INJ TRIGGER PNT<=2 MUS Routine 04/14/2023 3:30 PM CDT Pain Myofascial documented in this encounter Results * PA INJ TRIGGER PNT<=2 MUS, PA US GUIDE PLC NDL (04/14/2023 3:30 PM CDT) Narrative MMODAL - 04/14/2023 3:30 PM CDT Chris Gan D.O., M.P.H. ? 04/14/2023 ??3:22 PM PM Trigger point injection (left PSIS and right PSIS) Performed by: Chris Gan D.O., M.P.H. Authorized by: Amelai Salgado APRN, CNS, D.N.P. ?? Care team [...] Estimated blood loss: 0 Implants: 0 BHANU Pual APRN, D.N.P. PROCE DURE/MINOR SURGICAL ORDERABLES MMODAL NA documented in this encounter Visit Diagnoses Diagnosis Pain Myofascial documented in this encounter Administered Medications Inactive Administered Medications - up to 3 most recent administrations Medication Order MAR Action Action Date Dose Rate Site BUPivacaine 0.5 % (5 mg/mL) injection 9 mL (MARCAINE) 9 mL, injection, One-Time Injection, Starting on Mon04/14/23 at 1530, For 1 dose Given 04/14/2023 3:30 PM CDT 9 mL triamcinolone acetonide injection 40 mg (KENALOG-40) 40 mg, injection, One-Time Injection, Starting on Mon04/14/23 at 1530, For 1 dose Given 04/14/2023 3:30 PM CDT 40 mg documented in this encounter Care Teams Replenishment Specialist Relationship Specialty Start Date End Date Elsewhere, Pcp PCP - General Internal Medicine 09/30/22 documented as of this encounter
--- OUTSIDE RECORDS SUMMARY | 2023-08-16 08:15 | XMS_ITS | Encounter Summary ---
Author Name Unknown Organization [facility] Address [address] [place] [address] Care Team Providers Care Regional Operations Director Name Role Phone Elsewhere, Pcp Primary Care Provider Unavailabl e Encounter Details Date Type Department Care Team (Latest Contact Info) Description 01/11/2023 12:30 PM CDT Clinical Communication Virtual Review in [place], [place] [address] [place], [place] [phone] Canceled (Clinic: Scheduling Error) Social History Tobacco Use Types Packs/Day Years [...] How often do you attend chur or sikhism services? Never 09/27/2022 Do you belong to any clubs o r organizations such as religion groups, unions, fraternal or athletic groups, or [...] and heating? Not hard at all 01/05/2023 [facility] - Occupational Stress [...] your living situation today? I have a [facility] place to live 01/05/2023 Education Answer Date [...] st Contact Info) Description 09/19/2023 9:00 AM GRINDER SETUP OPERATOR Telemedicine Division of Pain Medicine in [place], [place] [address] [place] [phone] Carey Hinkle APRN, ADMITTING INTERVIEWER, M.S. [address] [place] [phone] documented as of this encounter Visit Diagnoses Not on filedocumented in this encounter Care Teams Regional Operations Director Relationship Specialty Start Date End Date Elsewhere, Pcp PCP - General Internal Medicine 09/30/22 documented as of this encounter
--- OUTSIDE RECORDS SUMMARY | 2023-08-16 08:15 | XMS_ITS | Encounter Summary ---
Author Name Unknown Organization [facility] Address [address] [place] [address] Care Team Providers Care Order Editor Name Role Phone Elsewhere, Pcp Primary Care Provider Unavailabl e Reason for Visit * Outpatient (Routine) - Closed Specialty Diagnoses / Procedures Referred By Contnilda t Referred To Contact Pain Medicine Amelia Salgado APRN, BHANU, D.N.P. [address] [place] [phone] [facility] Referral ID Status Reason Start Date Expiration Date Visits Re quested Visits Authorized [id number] Closed 03/02/2023 03/01/2026 1 1 Encounter Details Date Type Department Care Team (Late st Contact Info) Description 04/14/2023 3:00 PM CDT Office Visit Division of Pain Medicine in [place], [place] [address] [place] [phone] Amelia Salgado APRN, VENEER MEASURER, D.N.P. [address] [place] [phone] Pain Low Back Unspecified (Primary Dx); Spondylosis Lumbar Without Myelopathy; Neuropathy Peripheral; Myofascial [...] How often do you attend chur or religion services? Never 09/27/2022 Do you belong to any clubs o r organizations such as taoist groups, unions, fraternal or athletic groups, or [...] and heating? Not hard at all 01/05/2023 [facility] ional Health - Occupational [...] your living situation today? I have a [facility] place to live 01/05/2023 Education Answer [...] encounter Progress Notes * Amelia Salgado APRN, BHANU, D.N.P. - 04/14/2023 3:00 PM CDT PREPROCEDURE EVALUATION ONLY SUBJECTIVE REFERRAL SOURCE Amelia Salgado APRN, BHANU, D.N.P. [address] [place] [phone] CHIEF COMPLAINT / REASON FOR VISIT Laura Madrid is a 52 y.o. female with a history of post COVID syndrome, lumbosacral radiculopathy, peripheral neuropathy, low back pain, diabetes mellitus, and migraine headaches whom has been followed in the Pain Clinic for low back pain and lumbar radiculopathy. Initial consultation tookplace with Courtney Sandhu APRN, MANAGER MEDICAL, MSN in conjunction with Dr. Gibbons on 10/04/22 whom patient had been previously seeing at [facility] in the [facility]. I would refer the interested reader to this note for full details of the evaluation. Patient presents to the clinic today for consideration of repeat ultrasound guided lumbar trigger point injections. Patient last underwent procedure on 01/12/23 endorsing 70% improvement of symptoms that lasted two months before pain recurrence. Recall patient underwent lumbar spine radiofrequency ablation targeting L4-5/ L5- S1 in November 2022 in which she endorses 80-90% improvement of symptoms. She was doing well until she unfortunately sustained a right MCL injury in December 2022 in which patient endorses pain reoccurrence since this time with alteration of her gait which led to further pursuit of injection therapy for lumbar back pain. Briefly patient endorses similar pain characteristics to previous evaluation in which the pain is located in the low back at the midline with radiation through the buttocks. Patient denies radicular symptoms through the lower extremities at today's evaluation. Patient continues both land and water physical therapy at [facility] in the [facility]. Aggravating factors include weight-bearing activity such as standing and walking. Alleviating factors include sitting and lying down. Conservativetreatments include ice/heat, massage, ocular care aide, TENS unit, acupuncture, and physical therapy. Patient had sent a portal message regarding increasing numbness and tingling of her left lower extremity. Patient recalls onset of this was early March 2023. Following clinic visit on 03/02/23 weshifted the patient from gabapentin to pregabalin and she is currently taking 225 mg twice daily without any adverse reactions. MRI lumbar spine and EMG ordered for further diagnostics. Those are upcoming. Medication management include: Pain Medications acetaminophen (TYLENOL) [...] Take 4 mg by mouth at bedtime. Current Outpatient Medications [...] (LYRICA) 225 mg, oral, 2 times daily scopolamine base (TRANSDERM SCOP) 1 mg over 3 days 1 patch, transdermal, Every 72 hours PRN sodium fluoride-pot nitrate 1.1-5 % paste USE DOCTOR INSTRUCTED tiZANidine (ZANAFLEX) 4 mg, oral, Daily at bedtime UltiCare Pen Needle 31 gauge x 5/16 needle USE FOR ADMINISTERING INSULIN AT HOME Allergies Allergen Reactions Cefprozil Hives (Reselect Reaction) Iodine Nausea And Vomiting, Other (see comments), Angioedema (Reselect Reaction) and Edema (Reselect Reaction) Used for thyroid After radioiodine; developed facial swelling and nausea/vomiting. Facial swelling started 24 hours after dose, started vomiting after 48 hours.Topical betadine ok. I-131 dye only Latex Hives (Reselect Reaction) As child had hives due to backing on carpeting..no other exposure issues. Erythromycin Diarrhea and GI intolerance Levofloxacin Diarrhea and GI intolerance Isosorbide Mononitrate Rash Past Medical History: Diagnosis Date Depressive Disorder 2000 Diabetes Mellitus NOS 2013 Gastroesophageal Reflux Disease NOS 1999 Glaucoma 2021 Headache Unspecified Hypertension NOS Malignant Neoplasm Of Thyroid (HCC) 2000 Migraine Headache Nodule Thyroid 2001 Other Injury Of Unspecified Body Region Pneumonia Past Surgical History: Procedure Laterality Date DILATATION AND CURETTAGE 2014 GALLBLADDER SURGERY 1999 SINUS SURGERY 2001 THYROID SURGERY 2000 TOTAL HYSTERECTOMY 2014 Social History Tobacco Use Smoking status: Never Passive exposure: Current Smokeless tobacco: Never Substance Use Topics Alcohol use: Not Currently Comment: Maybe 1-2 drinks a year Drug use: Never Interventional/Procedures include previous epidural steroid injections targeting lumbar radiculopathy at outside facility. Laura Madrid denies recent fevers, chills, infections or antibiotics. No allergies to local anesthetic, corticosteroid, or contrast dye. No anticoagulation. No recent bowel or bladder changes. No unintentional weight loss or weight gain. Pain score today: 5/10. OBJECTIVE History was reviewed including allergies, current medications, and [...] localized tenderness at approximately the L4-5 level. MENTAL: Alert, oriented, appropriate mood and affect, recent and remote memory intact. ASSESSMENT / PLAN #1 Pain Low Back Unspecified #2 Spondylosis Lumbar Without Myelopathy #3 Neuropathy Peripheral #4 Myofascial Pain Syndrome Laura Madrid is a 52 y.o. female with a history of post COVID syndrome, lumbosacral radiculopathy, peripheral neuropathy, low back pain, diabetes mellitus, nd migraine headaches. Findings onevaluation are consistent with myofascial related pain. MEDICAL DECISION MAKING Low back/myofascial pain: It is appropriate to proceed with the scheduled ultrasound guided lumbar trigger point injections. We have discussed the risks, benefits, and intended outcomes of these procedures. The patient understands it may take up to 2 weeks to experience significant improvement in pain. Application of ice and avoidance of heat and soaking are recommended for the first 48 hours after the procedure. Showering is appropriate. No contraindications to proceeding. Procedure consent discussed and signed in office. 2. Neuropathy/Radiculopathy: Barring results of MRI lumbar spine and EMG. We discussed upward titration of pregabalin to 300 mg twice daily. At this time will await testing. All questions answered to the best of my abilities. FOLLOW UP Patient will follow up with the Pain Clinic as needed via phone/portal. Total time: 20 minutes with face to face with patient [...] answered, and the patient agreed to proceed. documented in this encounter Plan of Treatment Upcoming Encounters Date Type Department Care Team (Late st Contact Info) Description 09/19/2023 9:00 AM FINISHING MANAGER Telemedicine Division of Pain Medicine in [place], [place] [address] [place] [phone] Carey Hinkle APRN, BHANU, M.S. [address] [place] [phone] documented as of this encounter Visit Diagnoses Diagnosis Pain Low Back Unspecified- Primary Spondylosis Lumbar Without Myelopathy Neuropathy Peripheral Myofascial Pain Syndrome documented in this encounter Care Teams Order Editor Relationship Specialty Start Date End Date Elsewhere, Pcp PCP - General Internal Medicine 09/30/22 documented as of this encounter
--- OUTSIDE RECORDS SUMMARY | 2023-08-16 08:15 | XMS_ITS | Encounter Summary ---
Author Name Unknown Organization [facility] Address [address] [place] [address] Care Team Providers Care Certified Addiction Counselor Name Role Phone Elsewhere, Pcp Primary Care Provider Unavailabl e Reason for Referral * MRI/CAT/PET Scan (Routine) - Closed Specialty Diagnoses / Procedures Referred By Contac t Referred To Contact Radiology Diagnoses Pain Low Back Unspecified Neuropathy Peripheral Procedures MR Lumbar Spine without IV Contrast Robert Gibbons M.D. [address] [place] [address] [facility] Referral ID Status Reason Start Date Expiration Date Visits Re quested Visits Authorized [id number] Closed 03/23/2023 03/22/2024 1 1 Reason for Visit * MRI/CAT/PET Scan (Routine) - Closed Specialty Diagnoses / Procedures Referred By Contac t Referred To Contact Radiology Diagnoses Pain Low Back Unspecified Neuropathy Peripheral Procedures MR Lumbar Spine without IV Contrast Robert Gibbons M.D. [address] [place] [address] [facility] Referral ID Status Reason Start Date Expiration Date Visits Re quested Visits Authorized [id number] Closed 03/23/2023 03/22/2024 1 1 Encounter Details Date Type Department Care Team (Latest Contact Info) Description 04/19/2023 6:01 AM CDT - 04/19/2023 7:26 AM CDT Hospital Encounter Department of Radiology, [facility] in [place], [place] [address] [place] [address] Robert Gibbons M.D. [address] [place] [address] Pain Low Back Unspecified; Neuropathy Peripheral Discharge Disposition: Home or Self [...] and heating? Not hard at all 01/05/2023 [facility]at ional Health - [...] 03/02/2023 UltiCare Pen Needle 31 gauge x 11/29 needle USE FOR ADMINISTERING INSULIN AT HOME [...] st Contact Info) Description 09/19/2023 9:00 AM PROTECTIVE SERVICES SOCIAL WORKER Telemedicine Division of Pain Medicine in [place], [place] [address] [place] [phone] Carey Hinkle, DANYEL, CHECK PROCESSOR, M.S. [address] [place] [address] documented as of this encounter Procedures Procedure Name Priority Date/Time Associated Diagnosis Comments MR LUMBAR SPINE WITHOUT IV CONTRAST RAD - Routine (most inpatients and all outpatients) 04/19/2023 7:05 AM CDT Pain Low Back Unspecified Neuropathy Peripheral documented in this encounter Results * MR Lumbar Spine without IV Contrast (04/19/2023 7:05 AM CDT) Anatomical Region Laterality Modality Lumbar Spine, Neuroradiology RST LOS, Neuroradiology ARZ LOS, Neuroradiology FLA LOS N/A Magnetic Resonance 04/19/2023 12:3 2 PM CDT Impressions 04/19/2023 12:58 PM CDT 1. L5-S1 left subarticular zone narrowing with contact of the traversing left S1 nerve roots. 2. Contact of the extraforaminal left L5 nerve root due to bulky left lateral L5-S1 disc osteophyte formation. Narrative 04/19/2023 12:58 PM CDT EXAM: MR LUMBAR SPINE WITHOUT IV CONTRAST [...] terminale. Conus medullaris terminates at L1-L2 level. Procedure Note Nathanael Cosby M.D. - 04/19/2023 EXAM: MR LUMBAR SPINE WITHOUT IV CONTRAST COMPARISON: None. FINDINGS: At L5-S1, left subarticular zone disc protrusion contact thetraversing left S1 nerve root. Bulky far left lateral L5-S1 disc osteophyte formations contact theextraforaminal left L5 nerve root. These are better in this exam compared to 01/27/2022 MRI butappear grossly similar. No significant lumbar spinal canal narrowing. Mild to moderate left andmild right L3-L4 neural foraminal narrowing due to disc bulge. No significant narrowing inremainder of lumbar neural foramina. Additional lumbar minor disc bulges and bulky far left lateralL4-L5 disc osteophyte formations without associated neural encroachment. Preserved lumbar vertebral height and alignment. No lumbar vertebralmarrow edema. Mild Modic type II endplate spondylotic changes at L5-S1. Benign fatty filum terminale.Conus medullaris terminates at L1-L2 level. IMPRESSION: 1. L5-S1 left subarticular zone narrowing with contact of the traversingleft S1 nerve roots. 2. Contact of the extraforaminal left L5 nerve root due to bulky leftlateral L5- S1 disc osteophyte formation. Robert GAMINO MRI PROCEDU RES documented in this encounter Visit Diagnoses Diagnosis Pain Low Back Unspecified Neuropathy Peripheral documented in this encounter Care Teams Certified Addiction Counselor Relationship Specialty Start Date End Date Elsewhere, Pcp PCP - General Internal Medicine 09/30/22 documented as of this encounter
--- OUTSIDE RECORDS SUMMARY | 2023-08-16 08:15 | XMS_ITS | Encounter Summary ---
Author Name Unknown Organization [facility] Address [address] [place] [address] Care Team Providers Care Gps Field Data Collector Name Role Phone Elsewhere, Pcp Primary Care Provider Unavailabl e Reason for Visit * Reason Onset Date Comments Pre-visit Intake 03/01/2023 Encounter Details Date Type Department Care Team (Latest Contact Info) Description 03/01/2023 12:00 PM CDT Clinical Communication Virtual Review in [place], [place] [address] [place] [address] Pre-visit Intake Social History Tobacco Use Types [...] often do you attend chur ch or episcopal services? Never 09/27/2022 Do you belong to any clubs o r organizations such as evangelical groups, unions, fraternal or athletic groups, or [...] and heating? Not hard at all 01/05/2023 [facility] of Occupat ional Health - Occupational [...] your living situation today? I have a [facility] place to live 01/05/2023 Education Answer [...] st Contact Info) Description 09/19/2023 9:00 AM DEOILING MACHINE OPERATOR Telemedicine Division of Pain Medicine in [place], [place] [address] [place] [address] Carey Hinkle APRN, SEARCH ENGINE OPTIMIZATION SPECIALIST, M.S. [address] [place] [address] documented as of this encounter Visit Diagnoses Not on filedocumented in this encounter Care Teams Gps Field Data Collector Relationship Specialty Start Date End Date Elsewhere, Pcp PCP - General Internal Medicine 09/30/22 documented as of this encounter
--- OUTSIDE RECORDS SUMMARY | 2023-08-16 08:15 | XMS_ITS | Encounter Summary ---
Author Name Unknown Organization [facility] Address [address] [place] [address] Care Team Providers Care Melter Caster Name Role Phone Elsewhere, Pcp Primary Care Provider Unavailabl e Encounter Details Date Type Department Care Team (Late st Contact Info) Description 01/04/2023 Clinical Communication Division of Pain Medicine in [place], [place] [address] [place] [phone] Robert Gibbons M.D. [address] [place] [phone] Social History Tobacco Use Types Packs/Day Years [...] How often do you attend chur or caodaism services? Never 09/27/2022 Do you belong to any clubs o r organizations such as mu-ism groups, unions, fra[employer] or athletic groups, or school groups? No [...] and heating? Not hard at all 01/05/2023 [facility] of Occupat ional Health - Occupational Stress [...] st Contact Info) Description 09/19/2023 9:00 AM PYTHON JAVA DEVELOPER Telemedicine Division of Pain Medicine in [place], [place] 200 [place] [address] Carey Hinkle APRN, OPEN HEARTH LABORER, M.S. [address] [place] [address] documented as of this encounter Visit Diagnoses Not on filedocumented in this encounter Care Teams Melter Caster Relationship Specialty Start Date End Date Elsewhere, Pcp PCP - General Internal Medicine 09/30/22 documented as of this encounter
--- OUTSIDE RECORDS SUMMARY | 2023-08-16 08:15 | XMS_ITS | Encounter Summary ---
Author Name Unknown Organization [facility] Address [address] [place] [address] Care Team Providers Care Auto Bench Mechanic Name Role Phone Elsewhere, Pcp Primary Care Provider Unavailabl e Reason for Referral * Outpatient (Routine) - Closed Specialty Diagnoses / Procedures Referred By Contac t Referred To Contact Diagnoses Neuropathy Peripheral Procedures EMG Delphine Petit M.D. [address] [place] [address] [facility] Referral ID Status Reason Start Date Expiration Date Visits Re quested Visits Authorized [id number] Closed 03/23/2023 03/22/2024 1 1 * MRI/CAT/PET Scan (Routine) - Closed Specialty Diagnoses / Procedures Referred By Contac t Referred To Contact Radiology Diagnoses Pain Low Back Unspecified Neuropathy Peripheral Procedures MR Lumbar Spine without IV Contrast Delphine Petit M.D. [address] [place] [address] [facility] Referral ID Status Reason Start Date Expiration Date Visits Re quested Visits Authorized [id number] Closed 03/23/2023 03/22/2024 1 1 Encounter Details Date Type Department Care Team (Late st Contact Info) Description 03/21/2023 Clinical Communication Division of Pain Medicine in [place], [place] [address] [place] [address] Delphine Petit M.D. [address] [place] [address] Social History Tobacco Use Types Packs/Day Years [...] often do you attend chur ch or mosque services? Never 09/27/2022 Do you belong to [...] and heating? Not hard at all 01/05/2023 [facility] of Occupat ional Health - Occupational Stress [...] PM CDT documented as of this encounter Miscellaneous Notes * Telephone Encounter - Karina Harrison R.N. - 03/23/2023 2:45 PM CDT SUBJECTIVE CHIEF COMPLAINT / REASON FOR CALL Symptom assessment, worsening numbness and tingling Information Discussed Miss Madrid reports worsening numbness and tingling in her left foot. Previously the numbness/tingling was centered on the toes. On Sunday 03/18, the numbness and tingling spread to all toes and thewhole foot to the ankle. She denies any injuries or trauma to the back or foot that day. She started the Lyrica 2 weeks ago. There was a slight delay due to the pharmacy needing to order the Lyrica. She has not had any side effects since starting it. Two weeks ago she had a thyroid MRI and she was jostled going into the scanner which caused increased low back pain. Since then she has been back to using a pillow behind her back when driving. She can walk about 5-10 feet then has to stop due to the increased back pain, it can go up to 8/10. Once she stops walking, the pain decreases. She has not taken anything because the pain decreases when activity stops. She is concerned about going back to where she was at [place] time when the foot and later side of her left leg when numb and she fell face forward. PLAN Disposition/Recommendation: patient transferred to the appointment desk and notified provider and awaiting recommendations In a previous message the recommendation if the numbness/tingling worsens or changes, Dr. Petit would like her to get an MRI. Laura does not have any metal or implanted devices. She does require sedation if it is a traditional MRI machine. She had a thyroid MRI done locally and the machine was open and states she could have done that without the sedation. She is currently scheduled for a return visit and RFA on 04/14. She notes that it is not with a provider she recognizes. She would prefer to have the appointment when Dr. Petit is there supervising. She began seeing him at his previous clinic and prefers to continue with him. I transferred her ot the appointment coordinators to see about changing the visit. Information/Education: patient/caller able to teach back Caller agreeable to plan of care: yes The following references were used: provider Dr. Petit documented in this encounter Plan of Treatment Upcoming Encounters Date Type Department Care Team (Late st Contact Info) Description 09/19/2023 9:00 AM THERMAL CUTTER HELPER Telemedicine Division of Pain Medicine in [place], [place] [address] [place] [phone] Carey Hinkle APRN, LACQUER SIZER, M.S. [address] [place] [address] documented as of this encounter Results * EMG (04/19/2023 7:27 AM CDT) 04/19/2023 8:45 AM CDT Narrative EMG - 04/19/2023 9:03 AM CDT Table formatting from the original result was not included. 19-Apr-2023 ? Electromyography ? Final Report Study Number: 1 EMG Elevator Installer: Chong Perez 127 or [phone] Referred by: DELPHINE PETIT (127 or [phone]) Referred for: left leg radic Referral Code: [...] mild underlying chronic, length-dependent, axonal peripheral neuropathy. Mar Hanson (127 or [phone])/SMB NERVE CONDUCTIONS ??Record Rep ?? Normal ??Normal [...] has been electronically signed: Chong Perez M.D., M.H.P.EShamika at 04/19/2023 9:02:38 AM CDT Procedure Note Chong Perez M.D., M.H.P.E. - 04/19/2023 19-Apr-2023 Electromyography Final Report Study Number: 1 EMG Elevator Installer: Chong Perez 127 or [phone] Referred by: DELPHINE PETIT (127 or [phone]) Referred for: left leg radic Referral Code: [...] peripheral neuropathy. A. Yury Hanson (127 or [phone])/SMB NERVE CONDUCTIONS Record Rep Normal Normal Distal [...] CDT Delphine Petit M.D. NEUROLOGY ORDER DANY [facility] EMG * MR Lumbar Spine without IV Contrast [...] bulky leftlateral L5- S1 disc osteophyte formation. Delphine GAMINO MRI PROCEDU RES documented in this encounter Visit Diagnoses Diagnosis Pain Low Back Unspecified- Primary Neuropathy Peripheral Pain Low Back Unspecified Neuropathy Peripheral Neuropathy Peripheral documented in this encounter Care Teams Auto Bench Mechanic Relationship Specialty Start Date End Date Elsewhere, Pcp PCP - General Internal Medicine 09/30/22 documented as of this encounter
--- OUTSIDE RECORDS SUMMARY | 2023-08-16 08:15 | XMS_ITS | Encounter Summary ---
Author Name Unknown Organization [facility] Address [address] [place] [address] Care Team Providers Care Pilot Safety Inspector Name Role Phone Elsewhere, Pcp Primary Care Provider Unavailabl e Reason for Referral * Outpatient (Routine) - Closed Specialty Diagnoses / Procedures Referred By Contac t Referred To Contact Pain Medicine Robert Gibbons M.D. [address] [place] [phone] [facility] Referral ID Status Reason Start Date Expiration Date Visits Re quested Visits Authorized [id number] Closed 12/05/2022 12/04/2025 1 1 Scheduling Instructions When Shai staffing Encounter Details Date Type Department Care Team (Late st Contact Info) Description 12/05/2022 Orders Only Division of Pain Medicine in [place], [place] [address] [place] [phone] Robert Gibbons M.D. [address] [place] [phone] Social History Tobacco Use Types Packs/Day Years [...] How often do you attend chur or mu-ism services? Never 09/27/2022 Do you belong to any clubs o r organizations such as latter-day groups, unions, fraternal or athletic groups, or [...] medical care, and heating? Somewhat hard 09/27/2022 [facility] of Occupat ional Health - Occupational Stress [...] money to buy more. Never true 09/28/19 Within the past 12 months, t he [...] place to sleep or slept in a assisted (including now)? No 09/27/2022 Nutrition Answer Date [...] st Contact Info) Description 09/19/2023 9:00 AM EVP HEAD OF [employer] EXPERIENCE STRATEGY Telemedicine Division of Pain Medicine in [place], [place] [address] [place] [phone] Carey Hinkle, DANYEL, BOLOGNA MAKER, M.S. [address] [place] [phone] Scheduled Referrals Name Type Priority Associated Diagnoses Orde r Schedule Pain Medicine office visit (clinic) Outpatient Referral Routine Expected: 01/05/2023 (Approximate), Expires: 03/07/2024 documented as of this encounter Visit Diagnoses Not on filedocumented in this encounter Care Teams Pilot Safety Inspector Relationship Specialty Start Date End Date Elsewhere, Pcp PCP - General Internal Medicine 09/30/22 documented as of this encounter
--- OUTSIDE RECORDS SUMMARY | 2023-08-16 08:15 | XMS_ITS | Encounter Summary ---
Author Name Unknown Organization [facility] Address [address] [place] [address] Care Team Providers Care Forest Technology Professor Name Role Phone Elsewhere, Pcp Primary Care Provider Unavailabl e Reason for Visit * Reason Onset Date Comments Pre-visit Intake 01/11/2023 Encounter Details Date Type Department Care Team (Latest Contact Info) Description 01/11/2023 12:15 PM CDT Clinical Communication Virtual Review in [place], [place] [address] [place] [address] Pre-visit Intake Social History Tobacco Use Types [...] often do you attend chur ch or latter-day services? Never 09/27/2022 Do you belong to [...] and heating? Not hard at all 01/05/2023 [facility] of Occupat ional Health - Occupational [...] your living situation today? I have a [facility] place to live 01/05/2023 Education Answer Date [...] st Contact Info) Description 09/19/2023 9:00 AM CABLE DISPATCHER Telemedicine Division of Pain Medicine in [place], [place] [address] [place] [address] Carey Hinkle APRN, INFORMATION SYSTEMS PLANNER, M.S. [address] [place] [address] documented as of this encounter Visit Diagnoses Not on filedocumented in this encounter Care Teams Forest Technology Professor Relationship Specialty Start Date End Date Elsewhere, Pcp PCP - General Internal Medicine 09/30/22 documented as of this encounter
--- OUTSIDE RECORDS SUMMARY | 2023-08-16 08:16 | XMS_ITS | Encounter Summary ---
Author Name Unknown Organization [facility] Address [address] [place] [address] Care Team Providers Care Brazer Assembler Name Role Phone Elsewhere, Pcp Primary Care Provider Unavailabl e Encounter Details Date Type Department Care Team (Latest Contact Info) Description 10/06/2022 Abstract [facility] Provider, Historical Social History Tobacco Use Types Packs/Day Years [...] often do you attend chur ch or buddhist services? Never 09/27/2022 Do you belong to any clubs o r organizations such as quaker groups, unions, fraternal or athletic groups, or [...] medical care, and heating? Somewhat hard 09/27/2022 [facility] of Occupat ional Health - Occupational [...] st Contact Info) Description 09/19/2023 9:00 AM GENERAL CLEANER Telemedicine Division of Pain Medicine in [place], [place] [address] [place] [phone] Carey Hinkle APRN, LENS FINISHER, M.S. [address] [place] [phone] documented as of this encounter Visit Diagnoses Not on filedocumented in this encounter Care Teams Brazer Assembler Relationship Specialty Start Date End Date Elsewhere, Pcp PCP - General Internal Medicine 09/30/22 documented as of this encounter
--- OUTSIDE RECORDS SUMMARY | 2023-08-16 08:16 | XMS_ITS | Encounter Summary ---
Author Name Unknown Organization [facility] Address [address] [place] [address] Care Team Providers Care International Logistics Manager Name Role Phone Elsewhere, Pcp Primary Care Provider Unavailabl e Reason for Visit * Appointment Request (Routine) - Closed Specialty Diagnoses / Procedures Referred By Contac t Referred To Contact Spine Diagnoses Pain Back Lumbar Herniated Disc Lumbar Spur Bone Referral ID Status Reason Start Date Expiration Date Visits Re quested Visits Authorized [id number] Closed 07/15/2022 07/15/2023 1 1 Encounter Details Date Type Department Care Team (Latest Contact Info) Description 10/04/2022 9:30 AM CDT Comprehensive Visit Division of Pain Medicine in [place], [place] [address] [place] [address] Courtney Sandhu APRN, C.N.P., M.S.N. [address] [place] [phone] Myofascial Pain Syndrome (Primary Dx); Radiculopathy; Neuropathy Peripheral; Spondylosis Lumbar Without Myelopathy Social History Tobacco Use Types Packs/Day Years [...] often do you attend chur ch or faith services? Never 09/27/2022 Do you belong to any clubs o r organizations such as druze groups, unions, fraternal or athletic groups, or [...] medical care, and heating? Somewhat hard 09/27/2022 [facility] [place] [facility] Occupat ional Health - Occupational Stress [...] place to sleep or slept in a prison (including now)? No 09/27/2022 Nutrition Answer Date [...] Sign Reading Time Taken Comments Blood Pressure 153/73 10/04/2022 9:10 AM CDT Pulse 87 10/04/2022 9:10 AM CDT Temperature 36.8 ??C (98.2 ??F) 10/04/2022 9:10 AM CD T Respiratory Rate - - Oxygen Saturation - - Inhaled Oxygen Concentration - - Weight 157 kg (346 lb 12.5 oz) 10/04/2022 9:10 A M CDT Height 175.5 cm (5' 9.09) 10/04/2022 9:10 AM CD T Body Mass Index 51.07 10/04/2022 9:10 AM CDT documented in this encounter Consult Notes * Courtney Sandhu APRN, C.N.P., M.S.N. - 10/04/2022 9:30 AM CDT REFERRING PROVIDER Sp[facility] Center - No referring notes SUBJECTIVE CHIEF COMPLAINT Lumbosacral radiculopathy Low back pain HISTORY OF PRESENT ILLNESS Laura Madrid 52 y.o. female who has a pertinent past medical history significant for post COVID syndrome, lumbosacral radiculopathy, peripheral neuropathy, low back pain, diabetes mellitus, migraine headaches. Pertinent past surgical history is insignificant for spine surgeries. Laura Madrid was referred to the pain clinic for evaluation and consideration of low back pain. Patient presents to the clinic today accompanied by her friend Stephie. Previously seen by Spine and Pain medicine in the [facility] who referred her to Alicia Hull [facility] [place] [facility] therapy, evaluation and treatment of radicular low back pain and overall strengthening. They are managing: Medications: Refill gabapentin, tizanidine Goal today: improvements in low back pain Onset November 2021, without specific trauma. Location/radiation mid low back, left and right legs, worsening left leg numbness. Duration ongoing, intermittent. Characteristics sharp, aching. Aggravating bending forward, backwards, sitting, standing, lifting. Alleviating factors rest, heating, acupuncture has been helpful. 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 Associated symptoms: peripheral numbness. Denies new weakness, saddle paresthesias (perineal numbness or tingling), changes to or loss of bowel or bladder function. Laura Madrid has tried conservative therapies that include, ice, heat, message, home health care provider, acupuncture, dry needling (alternative to trigger point injections), TENs unit trial; thesehave been helpful. Medication trials include Acetaminophen, NSAIDs, neuropathic medications, which have been helpful. He is tried currently taking 600 mg of gabapentin 3 times a day. Denies overt side effects of this medication. She feels like this has been helpful. Previous Injections: Currently scheduled: left L5-S1, S1 TFE scheduled 10/07/2022 -she is wondering if she can keep his appointment. Bilateral L4-5 transforaminal epidural on February of 2022; provided 50% relief for 2 weeks Right-sided L4-5 transforaminal epidural on March of 2022; provided 70 80% relief for 3 months with some ongoing right-sided relief Previous Imagin01/10/2022 Multilevel degenerative disc disease most severe at L4-L5 and L5-S1 similar to prior exam. Current Pain Medications: Pain Medications acetaminophen (TYLENOL) 500 mg tablet Take 2 tablets by mouth as needed. citalopram (CeleXA) 20 mg tablet Take 20 mg by mouth daily. cyclobenzaprine (FLEXERIL) 10 mg tablet Take 10 mg by mouth 3 (three) times a day as needed. gabapentin (NEURONTIN) 600 mg tablet Take 600 mg by mouth 3 (three) times a day. ketorolac (TORADOL) 60 mg/2 mL intramuscular injection as needed. oxyCODONE-acetaminophen (PERCOCET) 5-325 mg per tablet Take 1 tablet by mouth as needed. tiZANidine (ZANAFLEX) 4 mg tablet Take 4 mg by mouth at bedtime. Allergies: Cefprozil, Iodine, Latex, Erythromycin, Levofloxacin, Erythromycin ethylsuccinate, Isosorbide dinitrate, and Isosorbide mononitrate Past Surgical History: Procedure Laterality Date DILATATION AND CURETTAGE 2014 GALLBLADDER SURGERY 1999 HYSTERECTOMY 2014 SINUS SURGERY 2001 THYROID SURGERY 2000 ROS: Reviewed, but only addressing the complaints that are pertinent to this visit. Otherwise, recommendations were given to follow up with their primary care provider. OBJECTIVE Physical Exam: General: Pleasant 52 y.o. year old female seated comfortably in exam room chair in no acute distress Skin: Skin is dry and intact across lumbosacral with no rashes, lesions, or erythema Eyes: Pupils are 4 mm bilateral Lungs: Nonlabored respiration Musculoskeletal: Palpation: palpation in the left tenderness over the gluteal muscle, L5 region. Range of motion: limited Spine range of motion due to pain. Lateral bending reproduced pain bilaterally, right more than left. Provocative maneuvers: +facet maneuvers, bilaterally. Gait: non-antalgic Neuro: Reflexes: no reflexes elicited on examination-be due to anxiousness. Unable to heel or toe stand. Strength: Strength is normal symmetric in 5/5 extremity muscle group normal and equal bilaterally, full dorsi and plantar flexion bilaterally. Mental: Oriented to person, place, and time. Appropriate mood and affect. Recent and remote memory are intact. ASSESSMENT / PLAN #1 Myofascial Pain Syndrome #2 Radiculopathy #3 Neuropathy Peripheral #4 Spondylosis Lumbar Without Myelopathy Laura Madrid 52 y.o. female who has a pertinent past medical history significant for post COVID syndrome, lumbosacral radiculopathy, peripheral neuropathy, low back pain, diabetes mellitus, migraine headaches. History and examination findings are consistent with peripheral neuropathy, axial or mechanical low back pain, evidenced by positive facet maneuvers on examination. Therefore, we would like to trial increasing her gabapentin to 900 mg 3 times a day. Advanced interventions, please follow through with the scheduled transforaminal epidural injection that is scheduled on Monday. Second step, would like to trial bilateral L4-5, L5-S1 medial branch blocks with progression to radiofrequency ablation. This is consistent with her previous imaging showing degenerative disc diseasemost severe at L4-L5 and L5-S1. Patient will follow up with us after her epidural injection at [facility] on Monday. Plan Recommendations Medications/Conservative: NSAIDS; Tylenol; Gels/Creams/patches: Voltaren, lidocaine, Tens Unit Neuropathics: Gabapentin 900 mg in the morning and at night 1800 mg. No current side-effects. Muscle relaxants: tizanidine continue, as prescribed. Physical therapy/strengthening: Discussed this as the basis for improved pain and function. Recommend further PT. Water therapy- has started.. Psychological/Wellness referral: none at this time. CBT could be considered in the future if patient willing. Could consider wellness visit. Labs/advanced testing: EMG - consider if left lower extremity numbness does not improve following LAKEISHA. Imaging: MRI lumbar - consider updating. Interventions: Trigger point injections - could consider lumbar paraspinal muscles- not ordered. LTESI - with [facility] scheduled on Monday10-07-2022, treat lower extremity numbness. Medial Branch Blocks to RFA - L4-5, L5-S1 bilateral to treat axial low back pain: + facet maneuverson examination. Referrals: none. Records: outside records reviewed. [facility] [phone] [place] [phone] Follow-up visits: prn. Patient will follow up with us in 1 month's time regarding her epidural steroid injection and gabapentin efficacy- change in dosing. Case discussed with Dr. Gibbons PATIENT EDUCATION: Ready to learn, no apparent learning barriers were identified; learning preferences included listening. Explained diagnosis and treatment plan; patient expressed understanding of content. Time: > 60 minutes spent in [id number] discussion, coordination of care, patient education * Robert Gibbons M.D. - 10/04/2022 9:30 AM CDT Pain Medicine Note This is a supervisory note for Courtney Sandhu from the same date. Their documentation should be included as part of my own for billing and clinical care. Overall, this is a 52 year old female that I had previously seen at [facility] last year. I had been treating her with TFESIs, along with gabapentin 600 mg TID and Tizanidine 4 mg QHS. The TFE were first bilateral L4-5 (which was not particularly helpful) and then a right L4-L5 which was very effective for right leg pain. She now has worsening left leg pain and N/T since June. Shealso feels her left leg is unsteady. She has fallen from these symptoms and she is just unsure of it. She is here for a second opinion regarding the change in symptoms and appropriate treatment plan. Plan: - She is scheduled for a left L5-S1 and left S1 TFE on Monday at [facility]. Keep this appointment. - Increase gabapentin to 900 mg QAM and 1800 mg QPM. This is an increase in dosage and also a change in frequency to accommodate her schedule (she sometimes forgets the third dosage). - Continue tizanidine 4 mg QHS and oxycodone prn. - If left leg symptoms improve, no change in plan. If left leg symptoms do not improve, consider updated lumbar MRI and possibly a new lower extremity EMG. - If back pain worsens, consider bilateral L4-S1 MBB/RFA. - She will portal message me in one month to report her symptoms from the injection and change in gabapentin dosing. Nikko Gibbons MD Pain Medicine documented in this encounter Plan of Treatment Upcoming Encounters Date Type Department Care Team (Late st Contact Info) Description 09/19/2023 9:00 AM SERVICE CREW LEADER Telemedicine Division of Pain Medicine in [place], [place] [address] [place] [phone] Carey Hinkle, DANYEL, MOLDING UTILITY WORKER, M.S. [address] [place] [address] documented as of this encounter Visit Diagnoses Diagnosis Myofascial Pain Syndrome- Primary Radiculopathy Neuropathy Peripheral Spondylosis Lumbar Without Myelopathy documented in this encounter Care Teams International Logistics Manager Relationship Specialty Start Date End Date Elsewhere, Pcp PCP - General Internal Medicine 09/30/22 documented as of this encounter
--- OUTSIDE RECORDS SUMMARY | 2023-08-16 08:16 | XMS_ITS | Encounter Summary ---
Author Name Unknown Organization [facility] Address [address] [place] [address] Care Team Providers Care Type Casting Machine Operator Name Role Phone Elsewhere, Pcp Primary Care Provider Unavailabl e Reason for Referral * Outpatient (Routine) - Closed Specialty Diagnoses / Procedures Referred By Contac t Referred To Contact Diagnoses Spondylosis Lumbar Without Myelopathy Procedures FL Lumbar Spine Medial Branch Nerve Block NH INJ FACET JT LUMB/SAC 1 LVL NH INJ FACET JT LUMB/SAC 2 LVL Courtney Sandhu APRN, C.N.Tom., M.S.N. [address] [place] [address] [facility] Referral ID Status Reason Start Date Expiration Date Visits Re quested Visits Authorized [id number] Closed 11/04/2022 11/04/2023 1 1 Reason for Visit * Outpatient (Routine) - Closed Specialty Diagnoses / Procedures Referred By Contac t Referred To Contact Diagnoses Spondylosis Lumbar Without Myelopathy Procedures FL Lumbar Spine Medial Branch Nerve Block NH INJ FACET JT LUMB/SAC 1 LVL NH INJ FACET JT LUMB/SAC 2 LVL Courtney Sandhu APRN, C.NSamuel, M.S.N. [address] [place] [address] [facility] Referral ID Status Reason Start Date Expiration Date Visits Re quested Visits Authorized [id number] Closed 11/04/2022 11/04/2023 1 1 Encounter Details Date Type Department Care Team (Latest Contact Info) Description 11/18/2022 10:24 AM CDT - 11/18/2022 11:59 PM CDT Hospital Encounter Division of Pain Medicine in [place], [place] [address] [place] [phone] Courtney Sandhu APRN, C.NSamuel, M.S.N. [address] [place] [phone] Spondylosis Lumbar Without Myelopathy Discharge Disposition: Home [...] any clubs o r organizations such as temple groups, unions, fraternal or athletic groups, or [...] medical care, and heating? Somewhat hard 09/27/2022 [facility] ional [facility] - Occupational [...] medical appointments or from getting medications? No 03/1 10/2022 In the past 12 months, has l [...] place to sleep or slept in a penitentiary (including now)? No 09/27/2022 Nutrition Answer Date [...] Sign Reading Time Taken Comments Blood Pressure 139/77 11/18/2022 11:26 AM CDT Pulse 68 11/18/2022 11:26 AM CDT Temperature - - Respiratory Rate - - Oxygen Saturation 99% 11/18/2022 11:26 AM CDT Inhaled Oxygen Concentration - - Weight [...] syringe-needle U-100 0.3 mL 31 gauge x 516 syringe daily. 0 01/28/2020 ketorolac (TORADOL) 60 [...] ophthalmic solution at bedtime. 0 07/29/2022 01/11/20 23 tiZANidine (ZANAFLEX) 4 mg tablet Take 4 mg by mouth at bedtime. 0 09/13/2022 03/02/2023 documented as of this encounter Procedure Notes * Robert Gibbons M.D. - 11/18/2022 1:00 PM CDTAssociated Order(s): FL Lumbar Spine Medial Branch Nerve Block Pre-Procedure Diagnose(s): Spondylosis Lumbar Without Myelopathy Post-Procedure Diagnose(s): Spondylosis Lumbar Without Myelopathy FL Lumbar Spine Medial Branch Nerve Block Performed by: Robert Gibbons M.D. Authorized by: Courtney Sandhu APRN, C.N.P., M.S.N. Care team members present 1. Caleb Beal M.D. 2. Kimber Scherer L.P.N. PROCEDURE SUMMARY Indications: Spondylosis without myelopathy Pre-procedural pain: 09/23 Site: lumbar Lumbar: medial branch block Medial branch nerve block innervating the Left L4-L5, Left L5-S1, Right L4-L5 and Right L5-S1 facetjoints Needle or RF cannula: Spinal Needle size: 22 G Needle length: 5 in Flow: not applicable Patient position: prone IMAGING Fluoroscopic image guidance used to localize target, identify at risk structures, and dynamically used to direct therapy to the target. Image(s) acquired and saved. INJECTED MEDICATIONS The injected medication(s) listed was divided equally between the identified injection location(s) Total volume of injectate (mL): 3 Total steroid in injectate (mg): 0 3 mL BUPivacaine 0.5 % (5 mg/mL) 1 mL iohexoL 300 mg iodine/mL PROCEDURE DETAILS Medial branch block - lumbar: Using fluoroscopy, the junction of the transverse process and superior articulating process of the appropriate levels were identified and marked. Using fluoroscopic guidance, a spinal needle was advanced to each target. After negative aspiration, the contrast was injected at each site. Spread of contrast approximated the region of the medial branches/dorsal ramus andthere was no evidence of intravascular uptake. The patient tolerated the procedure well and there were no apparent complications. After appropriate observation, the patient was dismissed in good condition under their own power. The patient was instructed to keep a pain diary and report the results of the injection. ADDITIONAL PROCEDURE COMMENTS Tolerated well. No complications. [...] a procedural pause. PRE-PROCEDURE DETAILS Procedure purpose: diagnostic Appropriate hand hygiene, gown, cap, mask, protective eyewear, sterile gloves, skin preparation, sterile drape, and strict aseptic technique were utilized as applicable for the procedure: yes Site preparation: chlorhexidine SEDATION / ANESTHESIA Anesthesia method: local infiltration Local infiltrate type: lidocaine ATTESTATION STATEMENT A resident or fellow participated in the procedure, and the security sales consultant was present for the entire procedure. OPERATIVE NOTE INFORMATION Specimens: 0 Drains: 0 Estimated blood loss: 0 Implants: 0 documented in this encounter Plan of Treatment Upcoming Encounters Date Type Department Care Team (Late st Contact Info) Description 09/19/2023 9:00 AM NANOSCIENCE TECHNICIAN Telemedicine Division of Pain Medicine in [place], [place] [address] [place] [phone] Carey Hinkle APRN, E COMMERCE ARCHITECT, M.S. [address] [place] [address] documented as of this encounter Procedures Procedure Name Priority Date/Time Associated Diagnosis Comments FL LUMBAR SPINE MEDIAL BRANCH NERVE BLOCK INJECTION Routine 11/18/2022 11:25 AM CDT Spondylosis Lumbar Without Myelopathy documented in this encounter Results * FL Lumbar Spine Medial Branch Nerve Block (11/18/2022 11:25 AM CDT) Narrative Robert Gibbons M.D. - 11/18/2022 1:00 PM CDT Robert Gibbons M.D. ? 11/18/2022 11:29 AM FL Lumbar Spine Medial Branch Nerve Block Performed by: Robert Gibbons M.D. Authorized by: Courtney Sandhu APRN, C.N.P., M.S.N. ?? Care team members present 1. Caleb Beal M.D. 2. Kimber Scherer L.P.N. PROCEDURE SUMMARY Indications: Spondylosis without myelopathy Pre-procedural pain: 09/23 Site: lumbar Lumbar: medial branch block Medial branch nerve block innervating the Left L4-L5, Left L5-S1, Right L4-L5 and Right L5-S1 facet joints Needle or RF cannula: Spinal Needle size: 22 G Needle length: 5 in Flow: not applicable Patient position: prone IMAGING Fluoroscopic image guidance used to localize target, identify at risk structures, and dynamically used to direct therapy to the target. Image(s) acquired and saved. INJECTED MEDICATIONS The injected medication(s) listed was divided equally between the identified injection location(s) Total volume of injectate (mL): 3 Total steroid in injectate (mg): 0 ?? 3 mL BUPivacaine 0.5 % (5 mg/mL) 1 mL iohexoL 300 mg iodine/mL PROCEDURE DETAILS ?? Medial branch block - lumbar: Using fluoroscopy, the junction of the transverse process and superior articulating process of the appropriate levels were identified and marked. Using fluoroscopic guidance, a spinal needle was advanced to each target. ??After negative aspiration, the contrast was injected at each site. Spread of contrast approximated the region of the medial branches/dorsal ramus and there was no evidence of intravascular uptake. ??The patient tolerated the procedure well and there were no apparent complications. After appropriate observation, the patient was dismissed in good condition under their own power. The patient was instructed to keep a pain diary and report the results of the injection. ?? ADDITIONAL PROCEDURE COMMENTS Tolerated well. No complications. [...] a procedural pause. PRE-PROCEDURE DETAILS Procedure purpose: diagnostic Appropriate hand hygiene, gown, cap, mask, protective eyewear, sterile gloves, skin preparation, sterile drape, and strict aseptic technique were utilized as applicable for the procedure: yes ?? Site preparation: chlorhexidine SEDATION / ANESTHESIA Anesthesia method: local infiltration Local infiltrate type: lidocaine ATTESTATION STATEMENT A resident or fellow participated in the procedure, and the security sales consultant was present for the entire procedure. OPERATIVE NOTE INFORMATION Specimens: 0 Drains: 0 Estimated blood loss: 0 Implants: 0 Courtney Sandhu APRN C.N.P., M.S.N. F RICHARD GUIDED PAIN PROCEDURES documented in this encounter Visit Diagnoses Diagnosis Spondylosis Lumbar Without Myelopathy documented in this encounter Administered Medications Inactive Administered Medications - up to 3 most recent administrations Medication Order MAR Action Action Date Dose Rate Site BUPivacaine 0.5 % (5 mg/mL) injection 3 mL (MARCAINE) 3 mL, injection, One-Time Injection, Starting on Mon11/18/22 at 1300, For 1 dose Given 11/18/2022 1:00 PM CDT 3 mL iohexoL 300 mg iodine/mL solution 1 mL (OMNIPAQUE) 1 mL, injection, One-Time Injection, Starting on Mon11/18/22 at 1300, For 1 dose Given 11/18/2022 1:00 PM CDT 1 mL documented in this encounter Care Teams Type Casting Machine Operator Relationship Specialty Start Date End Date Elsewhere, Pcp PCP - General Internal Medicine 09/30/22 documented as of this encounter
--- OUTSIDE RECORDS SUMMARY | 2023-08-16 08:16 | XMS_ITS | Encounter Summary ---
Author Name Unknown Organization [facility] Address [address] [place] [address] Care Team Providers Care Address Change Clerk Name Role Phone Elsewhere, Pcp Primary Care Provider Unavailabl e Reason for Referral * Outpatient (Routine) - Closed Specialty Diagnoses / Procedures Referred By Contac t Referred To Contact Diagnoses Spondylosis Lumbar Without Myelopathy Procedures FL Lumbar Spine Medial Branch Nerve Block SC INJ FACET JT LUMB/SAC 1 LVL SC INJ FACET JT LUMB/SAC 2 LVL Courtney Sandhu APRN, C.NPaige., M.S.N. [address] [place] [address] [facility] Referral ID Status Reason Start Date Expiration Date Visits Re quested Visits Authorized [id number] Closed 11/04/2022 11/04/2023 1 1 Reason for Visit * Outpatient (Routine) - Closed Specialty Diagnoses / Procedures Referred By Contac t Referred To Contact Diagnoses Spondylosis Lumbar Without Myelopathy Procedures FL Lumbar Spine Medial Branch Nerve Block SC INJ FACET JT LUMB/SAC 1 LVL SC INJ FACET JT LUMB/SAC 2 LVL Courtney Sandhu APRN, C.N.P., M.S.N. [address] [place] [address] [facility] Referral ID Status Reason Start Date Expiration Date Visits Re quested Visits Authorized [id number] Closed 11/04/2022 11/04/2023 1 1 Encounter Details Date Type Department Care Team (Latest Contact Info) Description 11/11/2022 9:37 AM CDT - 11/11/2022 11:59 PM CDT Hospital Encounter Division of Pain Medicine in [place], [place] [address] [place] [phone] Courtney Sandhu APRN, C.N.P., M.S.N. [address] [place] [phone] Spondylosis Lumbar Without Myelopathy Discharge Disposition: Home [...] often do you attend chur ch or moravian services? Never 09/27/2022 Do you belong to any clubs o r organizations such as congregational groups, unions, fraternal or athletic groups, or [...] care, and heating? Somewhat hard 09/27/2022 [facility] Occupat ional Health [...] place to sleep or slept in a fdc (including now)? No 09/27/2022 Nutrition Answer Date [...] Sign Reading Time Taken Comments Blood Pressure 122/65 11/11/2022 10:37 AM CDT Pulse 74 11/11/2022 10:37 AM CDT Temperature 36.6 ??C (97.9 ??F) 11/11/2022 10:12 AM C DT Respiratory Rate - - Oxygen Saturation 94% 11/11/2022 10:37 AM CDT Inhaled Oxygen Concentration - - [...] Procedure Notes * Robert Gibbons M.D. - 11/11/2022 11:00 AM CDTAssociated Order(s): FL Lumbar Spine Medial Branch Nerve Block Pre-Procedure Diagnose(s): Spondylosis Lumbar Without Myelopathy Post-Procedure Diagnose(s): Spondylosis Lumbar Without Myelopathy FL Lumbar Spine Medial Branch Nerve Block Performed by: Robert Gibbons M.D. Authorized by: Courtney Sandhu APRN, C.N.P., M.S.N. Care team members present 1. Leigh Coe L.P.N. PROCEDURE SUMMARY Indications: Spondylosis without myelopathy Pre-procedural pain: 5/10 Site: lumbar Lumbar: medial branch block Medial branch nerve block innervating the Right L4-L5, Right L5-S1, Left L4-L5 and Left L5-S1 facetjoints Needle or RF cannula: Spinal [...] steroid in injectate (mg): 0 3 mL lidocaine 20 mg/mL 0.2 mL gadobutrol 10 mmol/10 mL (1 mmol/mL) PROCEDURE DETAILS Medial branch block - lumbar: [...] results of the injection. ADDITIONAL PROCEDURE COMMENTS We used gadolinium, but I'm not sure this is necessary. She had a bad reaction to radioactive iodine for thyroid cancer treatment. Tolerated well. No complications. CONSENT Consent obtained: [...] st Contact Info) Description 09/19/2023 9:00 AM HEATING ELEMENT REPAIRER Telemedicine Division of Pain Medicine in [place], [place] [address] [place] [phone] Carey Hinkle, DANYEL, GARMENT SORTER, M.S. [address] [place] [address] documented as of this encounter Procedures Procedure Name Priority Date/Time Associated Diagnosis Comments FL LUMBAR SPINE MEDIAL BRANCH NERVE BLOCK INJECTION Routine 11/11/2022 10:35 AM CDT Spondylosis Lumbar Without Myelopathy documented in this encounter Results * FL Lumbar Spine Medial Branch Nerve Block (11/11/2022 10:35 AM CDT) Narrative Robert Gibbons M.D. - 11/11/2022 11:00 AM CDT Robert Gibbons M.D. ? 11/11/2022 ??2:09 PM FL Lumbar Spine Medial Branch Nerve Block Performed by: Robert Gibbons M.D. Authorized by: Courtney Sandhu APRN, C.N.P., M.S.N. ?? Care team members present 1. Leigh Coe LShamikaPRangel. PROCEDURE SUMMARY Indications: Spondylosis without myelopathy Pre-procedural pain: 5/10 Site: lumbar Lumbar: medial branch block Medial branch nerve block innervating the Right L4-L5, Right L5-S1, Left L4-L5 and Left L5-S1 facet joints Needle or RF cannula: [...] steroid in injectate (mg): 0 3 mL lidocaine 20 mg/mL 0.2 mL gadobutrol 10 mmol/10 mL (1 mmol/mL) PROCEDURE DETAILS ?? Medial branch block - [...] of the injection. ?? ADDITIONAL PROCEDURE COMMENTS We used gadolinium, but I'm not sure this is necessary. She had a bad reaction to radioactive iodine for thyroid cancer treatment. Tolerated well. No complications. CONSENT Consent obtained: [...] 0 Courtney Sandhu APRN C.N.P., M.S.N. F LUODEXTER GUIDED PAIN PROCEDURES documented in this encounter Visit Diagnoses Diagnosis Spondylosis Lumbar Without Myelopathy documented in this encounter Administered Medications Inactive Administered Medications - up to 3 most recent administrations Medication Order MAR Action Action Date Dose Rate Site gadobutrol injection 0.2 mL (GADAVIST) 0.2 mL, injection, One-Time Injection, Starting on Mon11/11/22 at 1100, For 1 dose Given 11/11/2022 11:00 AM CDT 0.2 mL lidocaine 20 mg/mL injection 3 mL (XYLOCAINE) 3 mL, injection, One-Time Injection, Starting on Mon11/11/22 at 1100, For 1 dose Given 11/11/2022 11:00 AM CDT 3 mL documented in this encounter Care Teams Address Change Clerk Relationship Specialty Start Date End Date Elsewhere, Pcp PCP - General Internal Medicine 09/30/22 documented as of this encounter
--- OUTSIDE RECORDS SUMMARY | 2023-08-16 08:16 | XMS_ITS | Encounter Summary ---
Author Name Unknown Organization [facility] Address [address] [place] [address] Care Team Providers Care Cinder Block Maker Name Role Phone Kell Pan PA-C Primary Care Provider Un available Reason for Visit * Reason Comments Medication Questions Entered automatical ly based on patient selection in Plan B Acqusitions. Encounter Details Date Type Department Care Team Description 07/20/2023 11:30 AM EMPLOYMENT INTERVIEWER E-Visit [place] [id number] [place] [address] Mari Rosario PA-C [address] [place] [address] Chief Comp: Medication Questions Social History Tobacco Use Types Packs/Day Years Used Date Smoking Tobacco: Never Smokeless Tobacco: Never Alcohol Use Standard Drinks/Week Comments Yes 1 (1 standard drink = 0.6 oz pur e alcohol) rarely Sex and Gender Information Value Date Recorded Sex Assigned at Not on file Gender Identity Not on file Sexual Orientation Not on file documented as of this encounter Nursing Notes * Shaila Kathleen RN - 07/20/2023 11:18 AM CST See [employer] message OYMENT INTERVIEWER documented in this encounter Plan of Treatment Not on file documented as of this encounter Visit Diagnoses Not on filedocumented in this encounter Care Teams Cinder Block Maker Relationship Specialty Start Date End Date Kell Pan PA-C PCP - General Physician Descriptive Catalog Librarian 02/06/20 documented as of this encounter
--- OUTSIDE RECORDS SUMMARY | 2023-08-16 08:16 | XMS_ITS | Encounter Summary ---
Author Name Unknown Organization [facility] Address [address] [place] [address] Care Team Providers Care Mobile Sales Expert Name Role Phone Elsewhere, Pcp Primary Care Provider Unavailabl e Reason for Visit * Reason Onset Date Comments Pre-visit Intake 09/30/2022 Encounter Details Date Type Department Care Team (Latest Contact Info) Description 09/30/2022 11:00 AM CDT Clinical Communication Virtual Review in [place], [place] [address] [place] [address] Pre-visit Intake Social History Tobacco Use Types [...] How often do you attend chur or adventism services? Never 09/27/2022 Do you belong to any clubs o r organizations such as shinto groups, unions, fraternal or athletic groups, or [...] medical care, and heating? Somewhat hard 09/27/2022 [facility] ional Health - [...] place to sleep or slept in a senior care (including now)? No 09/27/2022 Nutrition Answer Date [...] st Contact Info) Description 09/19/2023 9:00 AM MATHEMATICAL SCIENCES PROFESSOR Telemedicine Division of Pain Medicine in [place], [place] [address] [place] [phone] Carey Hinkle APRN, OPERATIONS CONTROLLER, M.S. [address] [place] [phone] documented as of this encounter Visit Diagnoses Not on filedocumented in this encounter Care Teams Mobile Sales Expert Relationship Specialty Start Date End Date Elsewhere, Pcp PCP - General Internal Medicine 09/30/22 documented as of this encounter
--- OUTSIDE RECORDS SUMMARY | 2023-08-16 08:16 | XMS_ITS | Encounter Summary ---
Author Name Unknown Organization [facility] Address [address] [place] [address] Care Team Providers Care Rail Project Engineer Name Role Phone Elsewhere, Pcp Primary Care Provider Unavailabl e Reason for Visit * Reason Onset Date Comments Pre-visit Intake 11/09/2022 Encounter Details Date Type Department Care Team (Latest Contact Info) Description 11/09/2022 10:00 AM CDT Clinical Communication Virtual Review in [place], [place] [address] [place] [address] Pre-visit Intake Social History Tobacco Use Types [...] often do you attend chur ch or yazidi services? Never 09/27/2022 Do you belong to any clubs o r organizations such as samaritan groups, unions, fraternal or athletic groups, or [...] and heating? Somewhat hard 09/27/2022 [facility] of Occupat ional Health - Occupational Stress [...] place to sleep or slept in a mcc (including now)? No 09/27/2022 Nutrition Answer Date [...] st Contact Info) Description 09/19/2023 9:00 AM DINING SERVER Telemedicine Division of Pain Medicine in [place], [place] [address] [place] [phone] Carey Hinkle, DANYEL, EDUCATION DEPARTMENT REGISTRAR, M.S. [address] [place] [address] documented as of this encounter Visit Diagnoses Not on filedocumented in this encounter Care Teams Rail Project Engineer Relationship Specialty Start Date End Date Elsewhere, Pcp PCP - General Internal Medicine 09/30/22 documented as of this encounter
--- OUTSIDE RECORDS SUMMARY | 2023-08-16 08:16 | XMS_ITS | Encounter Summary ---
Author Name Unknown Organization [facility] Address [address] [place] [address] Care Team Providers Care Electrical Instrument Maker Name Role Phone Elsewhere, Pcp Primary Care Provider Unavailabl e Reason for Visit * Reason Onset Date Comments Follow-up 11/21/2022 MBB #2 Encounter Details Date Type Department Care Team (Latest Contact Info) Description 11/21/2022 9:30 AM CDT Clinical Communication Division of Pain Medicine in [place], [place] [address] [place] [address] Follow-up (MBB #2) Social History Tobacco Use Types Packs/Day Years [...] How often do you attend chur or nondenominational services? Never 09/27/2022 Do you belong to any clubs o r organizations such as episcopalian groups, unions, fraternal or athletic groups, or [...] medical care, and heating? Somewhat hard 09/27/2022 [facility] Occupat ional Health - [...] encounter Miscellaneous Notes * Telephone Encounter - Belinda Moore RShamikaN. - 11/21/2022 9:46 AM CDT TELEPHONE CALL DOCUMENTATION PROCEDURE: Diagnostic Block # 2 MEDICATION: bupivacaine PERCENT IMPROVEMENT: 90% What activities did you do to test your pain during the 2-3 hours following your block that would normally cause you pain? Went to the [place] and walked the entire length of the mall x2. Reportsthat this is the longest she has walked in I can't even tell you how long. Put laundry away, played with the dog with only slight discomfort. Patient reports significant improvement in pain level while performing usual activities. Result: 80-100% pain relief, patient will proceed as scheduled. PLAN Pt is allergic to iodine and noted that she was pink around the neck, upper chest, and bottom of the chin. This did go away on it's own. Pt thinks this was a reaction to the iohexol that was used on 11/18/22. Pt requests diabetes information for this procedure. Will send via POM. Information: reinforced Caller agreeable to plan of care: yes The following references were used: none, procedure documented in this encounter Plan of Treatment Upcoming Encounters Date Type Department Care Team (Late st Contact Info) Description 09/19/2023 9:00 AM PILOT SUBMERSIBLE Telemedicine Division of Pain Medicine in [place], [place] [address] [place] [address] Carey Hinkle, DANYEL, PACKAGING DESIGNER, M.S. [address] [place] [address] documented as of this encounter Visit Diagnoses Not on filedocumented in this encounter Care Teams Electrical Instrument Maker Relationship Specialty Start Date End Date Elsewhere, Pcp PCP - General Internal Medicine 09/30/22 documented as of this encounter
--- OUTSIDE RECORDS SUMMARY | 2023-08-16 08:16 | XMS_ITS | Clinical Summary ---
Author Name Unknown Organization [facility] Address [address] [place] [address] Care Team Providers Care Cardiovascular Physician Assistant Name Role Phone Kell Pan PA-C Primary Care Provider Un available Source Comments You are receiving this document as you are listed as the primary care provider,follow-up provider, or the patient has been referred to you for consultation.This is in compliance with the Medicare andMedicaid EHR Incentive Program,which states Providers who transition their patient to another setting of careor provider of care or refers their patient to another provider of care shouldprovide summary care record for each transition of care or referral. [facility] Allergies Active Allergy Reactions Criticality Noted Date Comments Cefprozil Hives High 12/25/2006 Erythromycin Gastrointestinal Medium 11/18/2019 Iodine Edema,generalized 11/18/2019 Used for thyroid Isosorbide Nitrate Rash 06/22/2018 Latex Hives High 11/18/2019 Levofloxacin Gastrointestinal Medium 11/18/2019 Medications Medication Sig Dispensed Refills Start Date End Date Status atorvastatin (LIPITOR) 40 MG tablet 0 0 Active cyclobenzaprine (FLEXERIL) 10 MG tablet 1 Tablet (10 mg) three times a day as needed (migraine/muscle tension). 0 0 Active esomeprazole (NEXIUM) 40 MG capsule 0 0 Active ONE TOUCH ULTRA BLUE test strips 0 0 Active levothyroxine (SYNTHROID) 200 MCG tablet 0 0 Active SUNMARK ALLERGY RELIEF D 10-240 MG tablet Take 1 Tablet by mouth two times a day. 0 0 Active pramipexole (MIRAPEX) 0.25 MG tablet 1 Tablet (0.25 mg) three times a day. 0 0 Active dulaglutide (TRULICITY) 1.5 MG/0.5ML injeciton pen Inject 1.5 mg subcutaneously once a week. 0 Active Insulin Glargine (LANTUS SC) 70 Units. 0 Active Acetaminophen (TYLENOL EXTRA STRENGTH OR) 0 Active Syringe, Disposable, 3 ML For self injection of IM Ketorolac .Needs 1 1/2 25G needles. Sharps container 20 Each 1 2 Active oxyCODONE-aceta minophen (PERCOCET) 5-325 MG tablet Take 1 Tablet by mouth every 4 hours as needed. 0 2 Active tiZANidine (ZANAFLEX) 4 MG tablet Take 1 Tablet (4 mg) by mouth daily at bedtime. 0 2 Active dihydroergotami ne (D.H.E.45) 1 MG/ML injectionIndica tions:Migraine without aura and without status migrainosus, not intractable Inject 0.5-1 mL (0.5-1 mg) intramuscularly as needed. May repeat in 1 hour or more if needed. Max 3mg/day. 10 mL 3 2 Active ketorolac (TORADOL) 60 MG/2ML injectionIndica tions:Migraine without aura and without status migrainosus, not intractable Inject 1-2 mL (30-60 mg) intramuscularly as needed for Pain. May repeat in 4-6 hours if needed. Max 120mg/day. Max 5 doses of 60mg/month 10 mL 0 4 Active Syringe, Disposable, 3 MLIndications:M igraine without aura and without status migrainosus, not intractable Use with IM self injections of DHE. Also needs 1 25G needles. Filter needles for glass vials 20 Each 3 4 Active fluconazole (DIFLUCAN) 150 MG tablet 0 0 08/15/19 24 Discontinued Syringe, Disposable, 3 ML Use with IM self injections of DHE. Also needs 1 25G needles. Filter needles for glass vials 20 Each 3 2 08/15/19 24 Discontinued(*M ed change OR same med OR reorder, new dose/directions ) gabapentin (NEURONTIN) 600 MG tablet Take 1 Tablet (600 mg) by mouth three times a day. 0 2 08/15/19 24 Discontinued ketorolac (TORADOL) 60 MG/2ML injectionIndica tions:Migraine without aura and without status migrainosus, not intractable Inject 1-2 mL (30-60 mg) intramuscularly as needed for Pain. May repeat in 4-6 hours if needed. Max 120mg/day. Max 5 doses of 60mg/month 10 mL 0 2 08/15/19 24 Discontinued(*M ed change OR same med OR reorder, new dose/directions ) predniSONE (DELTASONE) 20 MG tablet Take 3 tablets on day 1, 2 tablets on day 2, and 1 tablet on day 3. Take in AM with food. 6 Tablet 0 3 08/15/19 24 Discontinued Active Problems Problem Noted Date Diagnosed Date Localized osteoarthritis of left knee 04/06/2020 Overview: severe PF Complex tear of lateral meni scus of left knee as current injury 04/06/2020 Tear of medial meniscus of left knee, current Encounters Date Type Department Care Team Description 08/15/2023 10:45 AM VENDING TECHNICIAN Telemedicine [facility] [address] [place] [address] Mari Rosario PA-C History of COVID-19 (Primary Dx); Migraine without aura and without status migrainosus, not intractable; Hypertension, unspecified type (HRC); Obesity, unspecified classification, unspecified obesity type, unspecified whether serious comorbidity present (HRC) 07/20/2023 11:30 AM VENDING TECHNICIAN E-Visit [facility] [address] [place] [address] Mari Rosario PA-C Chief Comp: Medication Questions from Last 3 Months Family History Medical History Relation Name Comments Heart Attack Father Heart Attack Paternal Grandfather Stroke Paternal Grandfather Migraines Sister Seizure Disorder Sister Relation Name Status Comments Father Paternal Grandfather Sister Social History Tobacco Use Types Packs/Day Years Used Date Smoking Tobacco: Never Smokeless Tobacco: Never Alcohol Use Standard Drinks/Week Comments Yes 1 (1 standard drink = 0.6 oz pur e alcohol) rarely Sex and Gender Information Value Date Recorded Sex Assigned at Not on file Gender Identity Not on file Sexual Orientation Not on file Last Filed Vital Signs Vital Sign Reading Time Taken Comments Blood Pressure 109/68 07/05/2022 11:20 AM VENDING TECHNICIAN Pulse 79 07/05/2022 11:20 AM VENDING TECHNICIAN Temperature - - Respiratory Rate 17 07/05/2022 11:20 AM VENDING TECHNICIAN Oxygen Saturation - - Inhaled Oxygen Concentration - - Weight 175.8 kg (387 lb 8 oz) 03/15/2021 9:53 AM CDT Height 175.3 cm (5' 9) 04/06/2020 12:27 PM CDT Body Mass Index 57.22 04/06/2020 12:27 PM CDT Plan of Treatment Health Maintenance Due Date Last Done Comments Cervical Cancer Screening Due 1971 Colon Cancer Screening Plan Due 1971 Diabetes: Creatinine 1971 Diabetes: Foot Exam 1971 Diabetes: Lipid Panel 1971 Diabetes: Urine Microalbumin 1971 Hep C Screening (Preventive Services) 1971 HepB (1) 1971 HIV Screening (Preventive Services) 1987 Adult Preventive Visit 1989 Mammogram 04/15/2021 04/15/2020 Diabetes: Eye Exam 02/23/2022 02/23/2021 COVID-19 Vaccine ( season) 2023 04/02/2022, 10/08/2021, 10/08/2021, Additional history exists Influenza (#1) 2023 Diabetes: HGBA1C 09/12/2023 06/12/2023, , 11/09/2021, Additional history exists DTaP/Tdap/Td (5 - Tdap) 06/12/2027 06/12/20 17, 12/08/2005, 12/08/2005, Additional history exists Pneumococcal (3 - PPSV23 or PCV20) 2036 09/08/2021, 01/31/2020 Zoster/Shingles Completed 07/30/2021, 05/21/2021 HepA Aged Out No longer eligi ble based on patient's age to complete this topic Hib Aged Out No longer eligi ble based on patient's age to complete this topic IPV (Polio) Aged Out No longer eligi ble based on patient's age to complete this topic MCV4 Aged Out No longer eligi ble based on patient's age to complete this topic Care Teams Cardiovascular Physician Assistant Relationship Specialty Start Date End Date Kell Pan PA-C PCP - General Physician Automotive Internet Sales Consultant 02/06/20
--- OUTSIDE RECORDS SUMMARY | 2023-08-16 08:16 | XMS_ITS | Encounter Summary ---
Author Name Unknown Organization [facility] Address [address] [place] [address] Care Team Providers Care Cap Blocker Name Role Phone Elsewhere, Pcp Primary Care Provider Unavailabl e Encounter Details Date Type Department Care Team (Latest Contact Info) Description 11/11/2022 3:00 PM CDT Clinical Communication Division of Pain Medicine in [place], [place] [address] [place] [address] Social History Tobacco Use Types Packs/Day Years [...] How often do you attend chur or zoroastrian services? Never 09/27/2022 Do you belong to any clubs o r organizations such as pentecostal groups, unions, fraternal or athletic groups, or [...] medical care, and heating? Somewhat hard 09/27/2022 [facility] of Occupat ionut Health - Occupational Stress Questionnaire Answer Date [...] encounter Miscellaneous Notes * Telephone Encounter - Kimber Scherer L.PShamikaN. - 11/11/2022 2:41 PM CDT TELEPHONE CALL DOCUMENTATION PROCEDURE: Diagnostic Block # 1 MEDICATION: lidocaine PERCENT IMPROVEMENT: 95% What activities did you do to test your pain during the 2-3 hours following your block that would normally cause you pain? Walking and sitting, stairs Patient reports significant improvement in pain level while performing usual activities. Result: 80-100% pain relief, patient will proceed as scheduled. PLAN Information: reinforced Caller agreeable to plan of care: yes The following references were used: none, procedure documented in this encounter Plan of Treatment Upcoming Encounters Date Type Department Care Team (Late st Contact Info) Description 09/19/2023 9:00 AM SENIOR JAVA SOFTWARE ENGINEER Telemedicine Division of Pain Medicine in [place], [place] [address] [place] [phone] Carey Hinkle, DANYEL, PEST CONTROL PILOT, M.S. [address] [place] [address] documented as of this encounter Visit Diagnoses Not on filedocumented in this encounter Care Teams Cap Blocker Relationship Specialty Start Date End Date Elsewhere, Pcp PCP - General Internal Medicine 09/30/22 documented as of this encounter
--- OUTSIDE RECORDS SUMMARY | 2023-08-16 08:16 | XMS_ITS | Encounter Summary ---
Author Name Unknown Organization [facility] Address [address] [place] [id number] Care Team Providers Care Category Analyst Name Role Phone Kell Pan PA-C Primary Care Provider Un available Encounter Details Date Type Department Care Team Description 08/15/2023 10:45 AM RACE BOARD ATTENDANT Telemedicine [facility] [address] [place] [address] Mari Rosario PA-C [address] [place] [address] History of COVID-19 (Primary Dx); Migraine without aura and without status migrainosus, not intractable; Hypertension, unspecified type (HRC); Obesity, unspecified classification, unspecified obesity type, unspecified whether serious comorbidity present (HRC) Social History Tobacco Use Types Packs/Day Years Used Date Smoking Tobacco: Never Smokeless Tobacco: Never Alcohol Use Standard Drinks/Week Comments Yes 1 (1 standard drink = 0.6 oz pur e alcohol) rarely Sex and Gender Information Value Date Recorded Sex Assigned at Not on file Gender Identity Not on file Sexual Orientation Not on file documented as of this encounter Patient Instructions * Patient Instructions* Mari Rosario PA-C - 08/15/2023 10:45 AM RACE BOARD ATTENDANT Chronic migraine. Acute (as needed) therapy Dihydroergotamine (DHE) - 0.5-1mg (1/2 -1 ampule) injected at onset of typical headache. May repeatin 1 hour or more. Max 3mg per day. Max 9 days per month. Ketorolac Rescue therapy for refractory headache - 30mg/ml. Inject 30-60mg IM for rescue of headache. May repeat in 4-6 hrs. Max 120mg/day. Max 5 days/month. Please schedule next follow-up visit in 1 year with CESAR Degroot ([phone]). Please bring your headache calendars to the follow-up appointment. BOARD ATTENDANT documented in this encounter Progress Notes * Mari Rosario PA-C - 08/15/2023 10:45 AM CST Clinic Follow-up, video encounter Date of Visit: 08/15/2023 Date of : 1970 Reason for Visit: Follow-up headache HPI: Laura Madrid is a very pleasant 53 year-old female who presents for follow- up of headache. She was initially evaluated by Dr. Rendon on 11/18/19 and our initial visit was 02/06/20, last visit on 07/05/22. Today's visit is over video. I am in the clinic and the patient is at home. From our initial evaluation: When seen by Dr. Rendon, she reported longstanding history of migraines, onset at age 13 or 14. Headaches have varied over the years, well controlled periods and poorly controlled periods. At times,headaches have been intractable, requiring her to go into the clinic for Benadryl, Toradol, and Zofran. In the past has done occipital nerve blocks with benefit and at one time was on Depakote and Verapamil. She then was doing well and had not needed formal treatment of headaches. She weaned off ofDepakote and Verapamil. She then had pneumonia in August and in September was hospitalized with COVID-19. She had recurrence of intractabe headaches during that time. She indicated that she is having severe headache 3 or 4 times per week. She takes Benadryl and at times Flexeril. Using Fioricet on occasion. She described headaches as right-sided over her eye. Also has had occipital headaches, atypical for her. Following visit with , she was recommended MRI of the brain and MRA of the head due to persistent right ptosis. There were no concerning findings. She was recommended occipital nerve block.Depakote was discussed as a potential preventative. As noted above, Alea reports today that she has longstanding history of headaches. Prior to COVID infection, she was typically getting a few headaches per month. She could have a few in one week and then may go weeks without headache. When she became sick, headaches progressed to current daily pattern. She indicates that pain is present at all times but some days are manageable, whereas other daysshe is unable to function. She indicates that she has been into the clinic for rescue medications 9times. She also had one period of 36 hours during which she took Fioricet 9 times without relief. Fioricet has since been discontinued and she is now using Rizatriptan. She has used this twice with benefit. She typically tries to use non-prescription medication first. Has mainly been using Excedrintension. She treats headaches on a daily basis and has been doing so since end of September, beginning of October. Headaches have been located above her right eye as well as in the occipital region. Occipital is less typical for her. She indicates that steroids have been helpful in the past but she has completed two rounds of steroids without benefit. Did see relief with Decadron but this did not last.She also had an occipital nerve block which was helpful but has not repeated. Headache is not induced by valsalva nor positional changes. She has associated sensitivity to light and sound as well as nausea. She was recently started on Gabapentin a couple weeks ago, taking 300 mg twice daily. She has not yet noted benefit. Feels she is tolerating well though when discussing potential side effects,indicates that since starting Gabapentin, she has noticed swelling in her feet. Following initial visit, recommended Topiramate for prevention. Advised discontinuing Gabapentin. For acute treatment, elected DHE nasal spray. MR Venogram was recommended and was normal. For rescue therapy, elected to try Ketorolac injections. At the time of her next visit, she reported that she had seen significant improvement until the week before. She was taking Topiramate 45 mg and this had kept headaches well controlled. She had been averaging one headache per week, less intense than they previously were. She transitioned from DHE nasal spray to DHE injections because she was having sinus issues with the spray. She had tolerated DHE injections well and they had been helpful. She was using DHE injections in combination with Ketorolac injections when headaches would get more severe. Did not use these treatments more than 5 timesper month and was pleased with benefit. She had a flare-up in March the week after she quit herjob, which she attributed to stress. Prednisone had been recommended but she didn't end up taking this. In the last week, headaches had again flared. She was unsure why but felt these headaches had been related to her neck. She was getting neck pain and pain in the back of her head. She planned to get in for an injection at [facility] to see if this would break the cycle. She continued with topiramate 45 mg daily. For acute therapy, continued with DHE injections and forrescue therapy, Ketorolac injections. From 03/15/21: Alea reports that headaches have been stable. She is averaging 6 headache days per month, 4 of moderate to severe intensity. She treats with DHE injections in combination with Ketorolac injections which are effective. She is no longer working. She continues on Topirmate 45 mg daily. She has been diagnosed with glaucoma in both eyes since her last visit. She continued with Topiramate 45 mg daily. Advised however that she discuss this medication with her feather stitcher. For acute therapy, continued with DHE injections. Ketorolac for rescue therapy. From last visit, 07/05/22: Since her last visit, she reports improvement in headache condition. She is averaging 2 headache days per month. Typically she will close her eyes and rest and does not need to take medication for her headaches. She treats if headache is severe and states the only time she needed to treat was the beginning of April. She uses Ketorolac and DHE injections in combination. She discontinued Topiramate after our last visit without worsening symptoms. She is getting acupuncture weekly and this has been helpful for headaches, knee pain, and back pain. She is also taking Gabapentin for back pain with rare use of Percocet. Following last visit, elected to continue with DHE injections. Ketorolac injections for rescue therapy. Also taking gabapentin for back pain. Acupuncture weekly. Since her last visit, she reports improvement. She reports that she had a streak of headaches this past summer for which she needed to use her medications. She had to use a dose once at the beginningof July and just recently. She notes that she had cataract surgery on one eye two weeks ago and will be having surgery on the other eye tomorrow. Her eyesight improved significantly in the eye on which she already had surgery so has had daily headaches in the last two weeks attributed to the vision discrepancy. She reports that the combination of DHE and Ketorolac injections works very well for her. She continues with acupuncture with great benefit, now going every two weeks. Macario switched her from gabapentin to Lyrica, taking 300 mg twice daily. Review of Systems: Pertinent positives as summarized above in history of present illness. Remainder of complete reviewof systems is negative. No past medical history on file. No past surgical history on file. Allergies Allergen Reactions Latex Hives Cefprozil Hives Erythromycin Gastrointestinal Levaquin [Levofloxacin] Gastrointestinal Iodine Edema,generalized Used for thyroid Isosorbide Nitrate Rash Outpatient Medications Prior to Visit Medication Sig Dispense Refill Acetaminophen (TYLENOL EXTRA STRENGTH OR) atorvastatin (LIPITOR) 40 MG tablet cyclobenzaprine (FLEXERIL) 10 MG tablet 1 Tablet (10 mg) three times a day as needed (migraine/muscle tension). dihydroergotamine (D.H.E.45) 1 MG/ML injection Inject 0.5-1 mL (0.5-1 mg) intramuscularly as needed. May repeat in 1 hour or more if needed. Max 3mg/day. 10 mL 3 dulaglutide (TRULICITY) 1.5 MG/0.5ML injeciton pen Inject 1.5 mg subcutaneously once a week. esomeprazole (NEXIUM) 40 MG capsule fluconazole (DIFLUCAN) 150 MG tablet gabapentin (NEURONTIN) 600 MG tablet Take 1 Tablet (600 mg) by mouth three times a day. Insulin Glargine (LANTUS SC) 70 Units. ketorolac (TORADOL) 60 MG/2ML injection Inject 1-2 mL (30-60 mg) intramuscularly as needed for Pain. May repeat in 4-6 hours if needed. Max 120mg/day. Max 5 doses of 60mg/month 10 mL 0 levothyroxine (SYNTHROID) 200 MCG tablet ONE TOUCH ULTRA BLUE test strips oxyCODONE-acetaminophen (PERCOCET) 5-325 MG tablet Take 1 Tablet by mouth every 4 hours as needed. pramipexole (MIRAPEX) 0.25 MG tablet 1 Tablet (0.25 mg) three times a day. predniSONE (DELTASONE) 20 MG tablet Take 3 tablets on day 1, 2 tablets on day 2, and 1 tablet on day 3. Take in AM with food. 6 Tablet 0 SUNMARK ALLERGY RELIEF D 10-240 MG tablet Take 1 Tablet by mouth two times a day. Syringe, Disposable, 3 ML Use with IM self injections of DHE. Also needs 1 25G needles. Filter needles for glass vials 20 Each 3 Syringe, Disposable, 3 ML For self injection of IM Ketorolac .Needs 1 1/2 25G needles. Sharps container 20 Each 1 tiZANidine (ZANAFLEX) 4 MG tablet Take 1 Tablet (4 mg) by mouth daily at bedtime. No facility-administered medications prior to visit. Past Medications Tried: Verapamil, Depakote, Amitriptyline, Indomethacin, Gabapentin, Topiramate Fioricet, Toradol, DHE NS Occipital nerve block Family History Problem Relation Age of Onset Heart Attack Father Migraines Sister Seizure Disorder Sister Heart Attack Paternal Grandfather Stroke Paternal Grandfather Social History Tobacco Use Smoking status: Never Smokeless tobacco: Never Vaping Use Vaping Use: Never used Substance Use Topics Alcohol use: Yes Alcohol/week: 1.0 standard drink of alcohol Types: 1 Standard drinks or equivalent per week Comment: rarely Drug use: Not on file EXAM: GENERAL: Alert, in no acute distress. Appears well for stated age. Maintains good eye contact. NEUROLOGICAL EXAM: Alert and oriented x3. Speech and conversational language are normal. Recent andremote memory intact. Normal attention span and concentration. Fund of knowledge is appropriate. Cranial nerve exam 2 through 12 is normal. PRIOR INVESTIGATIONS: MRI BRAIN W/WO CONTRAST 11/28/19: IMPRESSION: 1. No definite evidence of an acute infarct. 2. Few small nonspecific nonenhancing foci of FLAIR hyperintensity within the white matter. Differential would include etiologies such as mild small vessel ischemic disease, trauma, migraine headaches. MRA HEAD WO CONTRSAT 11/28/19: IMPRESSION: 1. No definite evidence of an acute infarct. 2. Few small nonspecific nonenhancing foci of FLAIR hyperintensity within the white matter. Differential would include etiologies such as mild small vessel ischemic disease, trauma, migraine headaches. MR VENOUS HEAD W/WO CONTRAST 02/07/20: IMPRESSION: No evidence for dural venous sinus thrombosis. ASSESSMENT: 1. Migraine without aura 2. History of COVID-19 3. Hypertension 4. Obesity RECOMMENDATIONS: For acute treatment, Alea will continue with DHE Injections. Ketorolac injections for rescue therapy. She is also taking Lyrica, prescribed for back pain. She is getting acupuncture treatment, which has been very helpful. She will follow-up in 1 year or sooner if needed. Mari Rosario PA-C 08/15/2023 BOARD ATTENDANT documented in this encounter Plan of Treatment Not on file documented as of this encounter Visit Diagnoses Diagnosis History of COVID-19- Primary Migraine without aura and without status migrainosus, not intractable Migraine without aura, without mention of intractable migraine without mention of status migrainosus Hypertension, unspecified type (HRC) Obesity, unspecified classification, unspecified obesity type, unspecified whether serious comorbidity present (HRC) documented in this encounter Care Teams Category Analyst Relationship Specialty Start Date End Date Kell Pan PA-C PCP - General Physician Drum Straightener 02/06/20 documented as of this encounter
--- OUTSIDE RECORDS SUMMARY | 2023-08-16 08:16 | XMS_ITS | Encounter Summary ---
Author Name Unknown Organization [facility] Address [address] [place] [address] Care Team Providers Care Distillery Worker General Name Role Phone Elsewhere, Pcp Primary Care Provider Unavailabl e Reason for Referral * Outpatient (Routine) - Closed Specialty Diagnoses / Procedures Referred By Contac t Referred To Contact Diagnoses Spondylosis Lumbar Without Myelopathy Procedures FL Lumbar Spine Radiofrequency Denervation MA DEST LUMB/SAC FACET JT MA DEST LUMB/SAC FACET JT Courtney Hamm APRN, C.N.P., M.S.N. 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 [address] [place] [address] [facility] Referral ID Status Reason Start Date Expiration Date Visits Re quested Visits Authorized [id number] Closed 11/04/2022 11/04/2023 1 1 Encounter Details Date Type Department Care Team (Latest Contact Info) Description 12/02/2022 7:25 AM CDT - 12/02/2022 11:59 PM CDT Hospital Encounter Division of Pain Medicine in [place], [place] [address] [place] [address] Courtney Sandhu APRN, C.N.P., M.S.N. 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 Never 09/27/2022 Do you belong to [...] medical care, and heating? Somewhat hard 09/27/2022 [facility] - Occupational [...] place to sleep or slept in a long term (including now)? No 09/27/2022 Nutrition Answer Date [...] Sign Reading Time Taken Comments Blood Pressure 109/61 12/02/2022 9:10 AM CDT Pulse 69 12/02/2022 9:10 AM CDT Temperature 36.8 ??C (98.2 ??F) 12/02/2022 8:06 AM CD T Respiratory Rate 18 12/02/2022 9:10 AM CDT Oxygen Saturation 96% 12/02/2022 9:10 AM CDT Inhaled Oxygen Concentration - - Weight - - Height - - Body Mass Index - - documented in this encounter Medications at Time of Discharge Medication Sig Dispensed Refills Start Date End Date acetaminophen (TYLENOL) 500 mg tablet Take 2 tablets by mouth as needed. 0 atorvastatin (LIPITOR) 40 mg tablet Take 40 mg by mouth at bedtime. 0 07/29/2022 cyproheptadine (PERIACTIN) 4 mg tablet Take 4 mg by mouth as needed. 0 01/01/2021 esomeprazole (NexIUM) [address] capsule daily. 0 09/22/2022 insulin lispro 100 unit/mL injection 3 (three) times a day. 0 09/02/2022 Lantus Solostar U-100 Insulin 100 unit/mL (3 [...] 25 mg by mouth daily. 0 07/06/2022 ondansetron (ZOFRAN) 4 mg tablet as needed. 0 12/07/2020 pramipexole (MIRAPEX) 0.25 mg tablet Take 3-4 Tablets (0.75-1 mg) by mouth at bedtime. 0 09/04/2022 blood sugar diagnostic strips (Blood Glucose Test [...] times a day as needed. 0 09/16/2019 dihydroergotamine (DHE) 1 mg/mL injection Inject 0.5-1 mg intramuscularly as needed. 0 08/03/2021 insulin syringe-needle U-100 0.3 mL 31 gauge x 5/16 syringe daily. 0 01/28/2020 ketorolac (TORADOL) 60 mg/2 mL intramuscular injection Inject intramuscularly as needed for pain. 0 07/08/2022 lancets Test 4 times per day. 0 09/01/2020 nystatin (NYSTOP) 100,000 unit/gram powder Apply 1 strip topically as needed. 0 03/09/2021 oxyCODONE-acetaminop hen (PERCOCET) 5-325 mg per tablet Take 1 tablet by mouth as needed. 0 03/18/2022 scopolamine base (TRANSDERM SCOP) 1 mg over [address] 1 patch on the skin every third day as needed. 0 06/03/2022 sodium fluoride-pot nitrate 1.1-5 % paste USE DOCTOR INSTRUCTED 0 10/17/2020 UltiCare Pen Needle 31 gauge x 5/16 needle USE FOR ADMINISTERING INSULIN AT HOME 0 08/03/2022 citalopram (CeleXA) 20 mg tablet Take 20 mg by mouth daily. 0 07/15/2022 01/10/2023 docusate sodium (COLACE) 100 mg capsule Take 3 capsules by mouth daily. 0 07/13/2019 07/24/2023 dulaglutide (TRULICITY) 4.5 mg/0.5 mL injection Inject under the skin once a week. Saturdays 0 09/22/2022 gabapentin (NEURONTIN) 300 mg capsuleIndications:M yofascial Pain [...] a day. 120 tablet 3 10/04/2022 01/12/2023 tiZANidine (ZANAFLEX) 4 mg tablet Take 4 mg by mouth at bedtime. 0 09/13/2022 03/02/2023 albuterol 2.5 mg /3 mL nebulizer solution as needed. 0 07/08/2022 06/14/2023 fluconazole (DIFLUCAN) 150 mg tablet as needed. 0 10/31/2019 06/14/2023 latanoprost (XALATAN) 0.005 % ophthalmic solution at bedtime. 0 07/29/2022 01/11/20 23 documented as of this encounter Procedure Notes * Robert Gibbons M.D. - 12/02/2022 9:00 AM CDTAssociated Order(s): FL Lumbar Spine Radiofrequency Denervation Pre-Procedure Diagnose(s): Spondylosis Lumbar Without Myelopathy Post-Procedure Diagnose(s): Spondylosis Lumbar Without Myelopathy FL Lumbar Spine Radiofrequency Denervation Performed by: Robert Gibbons M.D. Authorized by: Courtney Sandhu APRN, C.N.P., M.S.N. Care team members present 1. Jostin Zimmer M.D. 2. Felipe Ware M.D. 3. Leigh Coe L.P.NShamika PROCEDURE SUMMARY Indications: Spondylosis without myelopathy [...] fellow participated in the procedure, and the product development consultant was present for the entire procedure. OPERATIVE NOTE INFORMATION Specimens: 0 Drains: 0 Estimated blood loss: 0 Implants: 0 documented in this encounter Plan of Treatment Upcoming Encounters Date Type Department Care Team (Late st Contact Info) Description 09/19/2023 9:00 AM MICROBIOLOGY QUALITY CONTROL TECHNICIAN Telemedicine Division of Pain Medicine in [place], [place] [address] [place] [phone] Carey Hinkle APRN, COUNTING MACHINE OPERATOR, M.S. [address] [place] [address] documented as of this encounter Procedures Procedure Name Priority Date/Time Associated Diagnosis Comments FL LUMBAR SPINE RADIOFREQUENCY DENERVATION Routine 12/02/2022 9:05 AM CDT Spondylosis Lumbar Without Myelopathy documented in this encounter Results * FL Lumbar Spine Radiofrequency Denervation (12/02/2022 9:05 AM CDT) Narrative [facility] - 12/02/2022 9:00 AM CDT Robert Gibbons M.D. ? 12/02/2022 ??9:19 AM FL Lumbar Spine Radiofrequency Denervation Performed by: Robert Gibbons M.D. Authorized by: Courtney Sandhu APRN, C.N.P., M.S.N. ?? Care team members present 1. Jostin Zimmer M.D. 2. Felipe Ware M.D. 3. Leigh Coe, L.P.NShamika PROCEDURE SUMMARY Indications: Spondylosis without myelopathy [...] fellow participated in the procedure, and the product development consultant was present for the entire procedure. OPERATIVE NOTE INFORMATION Specimens: 0 Drains: 0 Estimated blood loss: 0 Implants: 0 Courtney Sandhu APRN C.N.P., M.S.N. F LUODEXTER GUIDED PAIN PROCEDURES [facility] NA documented in this encounter Visit Diagnoses Diagnosis Spondylosis Lumbar Without Myelopathy documented in this encounter Administered Medications Active Administered Medications - up to 3 most recent administrations Medication Order MAR Action Action Date Dose Rate Site lactated ringers 20 mL/hr, intravenous, Continuous, Starting on Mon12/02/22 at 0830 New Bag 12/02/2022 8:14 AM CDT 20 mL/hr 20 mL/hr Inactive Administered Medications - up to 3 most recent administrations Medication Order MAR Action Action Date Dose Rate Site BUPivacaine 0.5 % (5 mg/mL) injection 6 mL (MARCAINE) 6 mL, injection, One-Time Injection, Starting on Mon12/02/22 at 0900, For 1 dose Given 12/02/2022 9:00 AM CDT 6 mL fentaNYL injection (SUBLIMAZE) intravenous, As needed, Starting on Mon12/02/22 at 0851, Intra-Op Given 12/02/2022 8:51 AM CDT 50 mcg lidocaine 20 mg/mL injection 3 mL (XYLOCAINE) 3 mL, injection, One-Time Injection, Starting on Mon12/02/22 at 0900, For 1 dose Given 12/02/2022 9:00 AM CDT 3 mL midazolam (PF) injection (VERSED) As needed, Starting on Mon12/02/22 at 0851, Intra-Op Given 12/02/2022 8:51 AM CDT 2 mg documented in this encounter Care Teams Distillery Worker General Relationship Specialty Start Date End Date Elsewhere, Pcp PCP - General Internal Medicine 09/30/22 documented as of this encounter
[2023-08-16] MEDS: KETOROLAC OPHTH 0.5% 1 DROP EYE-RIGHT ×3 (08:20→08:30)
[2023-08-16] MEDS: TETRACAINE 0.5% OPHTH 1 DROP EYE-RIGHT ×2 (08:20→08:25)
[2023-08-16 08:44] VITALS: BMI 57.2
[2023-08-16 08:46] VITALS: BP 122/65; PULSE 70; RESP 20; TEMP 36.6; O2SAT 97
[2023-08-16] MEDS: SODIUM CHLORIDE 0.9 % (FLUSH) 10 ML SYRINGE IVF (08:47)
--- NOTE | 2023-08-16 08:51 | SUR.PREOP ---
The eye drops brought by the patient (Ketorolac and Prednisolone) are examined and I have determined they are labeled by the patient's pharmacy for this patient as prescribed by the surgeon. The bottles are intact, recently obtained and appear to be correct.[id number] oneida durand RN
[2023-08-16] MEDS: TETRACAINE 0.5% OPHTH 2 DROP EYE-RIGHT (09:13)
--- NOTE | 2023-08-16 09:15 | W.ANESCHARGE ---
Anesthesia Charges Start Date/Time Anesthesia Start Date: 08/16/23 Anesthesia Start Time: 09:10 Stop Date/Time Anesthesia Stop Date: 08/16/23 Anesthesia Stop Time: 09:42
[2023-08-16] MEDS: BALANCED SALT IRRIG SOLN 15 ML EYE-RIGHT (09:19)
[2023-08-16 09:42] VITALS: BP 109/57; PULSE 66; RESP 16; TEMP 36.4; O2SAT 96
--- NOTE | 2023-08-16 09:42 | W.ANESCHARGE ---
Anesthesia Charges Start Date/Time Anesthesia Start Date: 08/16/23 Anesthesia Start Time: 09:10 Stop Date/Time Anesthesia Stop Date: 08/16/23 Anesthesia Stop Time: 09:42
--- NOTE | 2023-08-16 10:34 | W.ANESCHARGE ---
Anesthesia Charges Start Date/Time Anesthesia Start Date: 08/16/23 Anesthesia Start Time: 09:10 Stop Date/Time Anesthesia Stop Date: 08/16/23 Anesthesia Stop Time: 09:42
--- NOTE | 2023-08-16 11:17 | W.PM.OPTPROC ---
Procedure Note Date of procedure: 08/16/23 Will [facility] bill your pro fee for this procedure?: Yes Procedure Description: SURGEON: Sena Owusu MD PREOPERATIVE DIAGNOSIS: Nuclear sclerotic cataract, right eye. POSTOPERATIVE DIAGNOSIS: Nuclear sclerotic cataract, right eye. NAME OF OPERATION: Phacoemulsification of cataract with posterior chamber intraocular lens implantation in the right eye. ANESTHESIA: Topical. ESTIMATED BLOOD LOSS: Less than 2 cc. COMPLICATIONS: None. PATHOLOGY SPECIMEN: None. INDICATIONS: See consult note for details. The risks, benefits and alternatives of the procedure were explained to the patient, who elected to proceed and signed informed consent to do so. PROCEDURE: The patient was brought to the pre-holding area where the right eye was identified as the operative eye. I placed my initials above this eye. The patient received eye drops consisting of 0.5% tetracaine, 1% tropicamide, 10% phenylephrine, and 0.5% ketorolac. The patient was then brought to the operating room where the right eye was again identified as the operative eye. The eye was prepped with Betadine and draped in the usual sterile ophthalmic fashion. A #15 super-sharp blade was used to create a paracentesis site. 1% non-preserved intracameral lidocaine was injected into the anterior chamber. Endocoat was injected into the anterior chamber. A 2.4 mm keratome was used to create a three-plane self-sealing incision 1 mm anterior to the temporal limbus. A cystotome was used to create an anterior capsular leaflet. The Utrata forceps were used to extend this to form a continuous curvilinear capsulorrhexis. Hydrodissection was performed. The cataract was removed with phacoemulsification using the [id number] technique. The irrigation and aspiration tip was used to remove the remaining cortex. Healon was injected into the capsular bag. An LIZETH ZCB00 intraocular lens of 19.5 diopters was injected into the capsular bag. The irrigation and aspiration tip was used to remove the remaining viscoelastic. Balanced salt solution on a cannula was used to hydrate the wound, and the wound was found to be watertight. The pupil was noted to be round. DISPOSITION: The patient was taken to the recovery room and discharged to home in stable condition. The patient was instructed to call me or go to the emergency department with any sudden change, including dramatic loss of vision, severe pain in the eye or eyebrow region, nausea, or vomiting. The patient will follow up in the clinic tomorrow morning.
== END 2023-08-16 10:04 | disposition home or self-care (01) ==
LOC: OR 08:11
PROVIDERS: Visit Provider Ophthalmology
PROC: (CPT 66984; principal; 2023-08-16 08:15)
DX: H25.11 Age-related nuclear cataract, right eye (principal); E11.9 Type 2 diabetes mellitus without complications
CPT/HCPCS: 66984; 00120; 00142; 82962; A9270; J2250; J3010; V2632

== ENCOUNTER 2023-11-21 11:10 | Day surgery (SDC) | payer MEDICARE, MEDICAID, SELFPAY ==
--- NOTE | 2023-11-20 10:57 | PM.EN ---
Chart Event Note Chart Event Note: It has been shown that preop UTI is not a contraindication for joint replacement surgery. Therefore, we should proceed as planned for left total knee arthroplasty on 11/21/2023.
[2023-11-21] VITALS (23 sets, daily range): BP systolic 101–138; BP diastolic 60–82; PULSE 70–80; RESP 14–22; TEMP 35.8–37; O2SAT 90–98; BMI 57.9
--- OUTSIDE RECORDS SUMMARY | 2023-11-21 11:17 | XMS_ITS | Referral Summary ---
Author Name Unknown Organization [facility] Address [address] [place] [address] Care Team Providers Care Regional Sales Executive Name Role Phone Elsewhere, Pcp Primary Care Provider Unavailabl e Source Comments Patient records contain information from all sites at [facility]. For routine questions regarding patient records, call [phone] during business hours, M-F 8:00 AM - 5:00 PM Central Time. Record requests for emergency care only can be directed to [phone] at any time.[facility] Encounters Date Type Department Care Team Description 10/24/2023 2:45 PM CDT Procedure visit Division of Pain Medicine in [place], [place] [address] [place] [phone] Amelia Salgado APRN, BHANU, D.N.P. Pain Low Back Unspecified; Pain Myofascial 10/19/2023 Clinical Communication Division of Pain Medicine in [place], [place] [address] [place] [phone] Amelia Salgado APRN, BHANU, D.N.P. 09/19/2023 9:00 AM MEDICARE NURSE Telemedicine Division of Pain Medicine in [place], [place] [address] [place] [phone] Arin, Carey B, OIL CHANGER, OPERATIONS ACCOUNTANT, M.S. Pain Low Back Unspecified (Primary Dx); Pain Myofascial from Last 3 Months Allergies Active Allergy Reactions Criticality Noted Date Comments Cefprozil Hives (Reselect Reaction) High 12/25/2006 Erythromycin Diarrhea,GI intolerance Medium 12/25/2006 Iodinated Contrast Media Other (see comments) 08/16/2023 Iodine Nausea And Vomiting,Other (see comments),Angioedema (Reselect [...] syringe-needle U-100 0.3 mL 31 gauge x 11/29 syringe daily. 01/28/20 20 Active sodium fluoride-pot nitrate 1.1-5 % paste USE DOCTOR INSTRUCTED 10/18/19 21 Active scopolamine base (TRANSDERM SCOP) 1 mg over [address] 1 patch on the skin every third day as needed. 06/03/20 22 Active acetaminophen (TYLENOL) 500 mg tablet Take 2 tablets by mouth as needed. Active atorvastatin (LIPITOR) 40 mg tablet Take 40 mg by mouth at bedtime. 07/29/19 23 Active blood sugar diagnostic strips (Blood Glucose Test Strips) Test 3 times per day. Contour Next test JUDE ASCE 12/21/19 22 Active blood-glucose meter kit Dispense meter, test strips, lancets covered by pt ins. E11.9 NIDDM type II - Test 4 times/day. Reason: High A1C 09/01/19 21 Active cyclobenzaprine (FLEXERIL) 10 mg tablet Take 10 mg by mouth 3 (three) times a day as needed. 09/16/19 20 Active cyproheptadine (PERIACTIN) 4 mg tablet Take 4 mg by mouth as needed. 01/02/20 21 Active dihydroergotamine (DHE) 1 mg/mL injection Inject 0.5-1 mg intramuscularly as needed. 08/03/19 22 Active esomeprazole (NexIUM) [address] capsule daily. 09/23/19 23 Active Lantus Solostar U-100 Insulin 100 unit/mL (3 mL) injection 2 (two) times a day. 09/04/19 23 Active insulin lispro 100 unit/mL injection 3 (three) times a day. 09/02/19 23 Active lancets Test 4 times per day. 09/01/19 Active levothyroxine (SYNTHROID, LEVOTHROID) 200 mcg tablet daily. 09/04/19 Active lisinopriL (PRINIVIL,ZESTRIL ) 5 mg tablet Take 5 mg by mouth daily. 09/04/19 Active lorata-dine D 10-240 mg per 24 hr tablet Take 1 tablet by mouth at bedtime. 09/04/19 23 Active metoprolol succinate (TOPROL-XL) 25 mg 24 hr tablet Take 25 mg by mouth daily. 07/06/20 Active nystatin (NYSTOP) 100,000 unit/gram powder Apply 1 strip topically as needed. 03/09/20 Active ondansetron (ZOFRAN) 4 mg tablet as needed. 12/08/19 Active oxyCODONE-acetami nophen (PERCOCET) 5-325 mg per tablet Take 1 tablet by mouth as needed. 03/18/20 Active UltiCare Pen Needle 31 gauge x 5/16 needle USE FOR ADMINISTERING INSULIN AT HOME 08/03/19 23 Active pramipexole (MIRAPEX) 0.25 mg tablet Take 3-4 Tablets (0.75-1 mg) by mouth at bedtime. 09/04/19 23 Active citalopram (CeleXA) 20 mg tablet Take 30 mg by mouth every morning. 12/10/19 23 Active Trulicity 4.5 mg/0.5 mL injection Inject 4.5 mg under the skin once a week. 07/10/20 23 Active polyethylene glycol (Miralax) 17 gram/dose oral powder Take 17 g by mouth daily. 06/19/20 23 Active BD PrecisionGlide 25 gauge x 1 needle as needed. 08/21/19 Active BD Filter Needle-5 Micron 19 x 1 1/2 needle as needed. 08/21/19 24 Active Monoject Regular Luer 3 mL syringe as needed. 08/21/19 24 Active ketorolac (TORADOL) 60 mg/2 mL intramuscular injection 03/17/20 20 Active tiZANidine (ZANAFLEX) 4 mg tablet Take 1 tablet (4 mg total) by mouth at bedtime. 90 tablet 3 10/24/19 24 Active pregabalin (LYRICA) 300 mg capsule Take 1 capsule (300 mg total) by mouth 2 (two) times a day. 180 capsule 3 10/24/19 24 Active tiZANidine (ZANAFLEX) 4 mg tablet Take 1 tablet (4 mg total) by mouth at bedtime. 90 tablet 3 03/02/20 23 024 Discontinued(Re order) pregabalin (LYRICA) 300 mg capsule Take 1 capsule (300 mg total) by mouth 2 (two) times a day. 60 capsule 3 06/14/20 23 024 Discontinued Hospital, Clinic, or Other Facility [...] often do you attend chur ch or hoahaoism services? Never 09/27/2022 Do you belong to any clubs o r organizations such as jew groups, unions, fraternal or athletic groups, or [...] and heating? Not hard at all 01/05/2023 [facility] - Occupational [...] today? I have a [facility] place to live 01/05/2023 Education Answer [...] Comments Blood Pressure 127/69 06/15/2023 9:25 AM MEDICARE NURSE Pulse 80 06/15/2023 9:25 AM MEDICARE NURSE Temperature 36.6 ??C (97.9 ??F) 06/15/2023 8:43 AM CS T Respiratory Rate 13 06/15/2023 9:25 AM MEDICARE NURSE Oxygen Saturation 97% 06/15/2023 9:25 AM MEDICARE NURSE Inhaled Oxygen Concentration - - Weight 157 kg (346 lb 12.5 oz) 10/04/2022 9:10 A M CDT Height 175.5 cm (5' 9.09) 10/04/2022 9:10 AM CD T Body Mass Index 51.07 10/04/2022 9:10 AM CDT Plan of Treatment Upcoming Encounters Date Type Department Care Team (Late st Contact Info) Description 12/22/2023 1:00 PM CDT Virtual Visit Division of Pain Medicine in [place], [place] [address] [place] [phone] Amelia Salgado APRN, BHANU, D.N.P. [address] [place] [phone] Procedures Procedure Name Priority Date/Time Associated Diagnosis Comments EXTI POTASSIUM, S/P Routine 11/15/2023 8 :16 AM CDT HI INJ TRIGGER PNT<=2 MUS Routine 10/24/2023 2:45 PM CDT Pain Low Back Unspecified Pain Myofascial EXTI BASIC METABOLIC PANEL, S/P Routine 06/12/2023 9:20 AM MEDICARE NURSE EXTI THYROID-STIMULATING HORMONE-SENSITIVE (S-TSH), S Routine 02/14/2023 10:12 AM CDT EXTI LIPID PANEL, S Routine 09/02/2022 7 :35 AM MEDICARE NURSE from Last 3 Months or Most Recently Relevant to Health Maintenance Results * HI INJ TRIGGER PNT<=2 MUS (10/24/2023 2:45 PM CDT) Narrative MMODAL - 10/24/2023 2:45 PM CDT Amelia Salgado APRN, BHANU, D.N.P. ? 10/24/2023 ??3:50 PM PM Trigger point injection (left PSIS, right PSIS, left lumbar and right lumbar) Performed by: Amelia Salgado APRN, BHANU, D.N.P. Authorized by: Amelia Salgado APRN, BHANU, D.N.P. ?? PROCEDURE SUMMARY Pre procedure pain score: 4/10 Post procedure pain score: 2/10 Soft tissue site: left PSIS, right PSIS, left lumbar and right lumbar Lumbar: 2 locations (1 on the right paraspinal and 1 on the left paraspinal at the L4-5 region Lumbar position: prone PSIS: 2 locations (1 on the right and 1 on the left) PSIS position: prone Needle size: 25 G Needle length: 2 in Number of muscles injected: 1 or 2 muscles INJECTED MEDICATIONS The injected medication(s) listed was divided equally between the identified injection location(s) ?? Total volume of injectate (mL): ??10 Total steroid in injectate (mg): ??40 ?? 5 mL BUPivacaine 0.5 % (5 mg/mL) 4 mL lidocaine 10 mg/mL (1 %) 40 mg triamcinolone acetonide 40 mg/mL PROCEDURE [...] good condition under their own power. ?? PSIS procedure description: The patient was placed [...] good condition under their own power. ?? CONSENT Consent obtained: written (Risks, benefits [...] applicable for the procedure. ?? Skin preparation: chlorhexidine POST-PROCEDURE DETAILS ?? Complications: no apparent complications Comments Patient reports 70% improvement that lasted 2 months before pain recurrence. Describes as deep pressure most aggravated with weightbearing activities such as standing and walking. Alleviated with sitting and lying down. Patient will return on 12/22/23 to discuss and evaluate for potential repeat lumbar ablation. Amelia Salgado APRN, BHANU, D.N.P. PROCE DURE/MINOR SURGICAL ORDERABLES MMODAL NA from Last 3 Months or Most Recently Relevant to Health Maintenance Advance Directives For more information, please contact: [phone] Documents on File Type Date Recorded Patient Geological Sample Tester Expl anation Advance Directives 10/05/2022 8:01 PM Arlen Jenkins Kathe Rincon HCPOA/ADVOCATE/AGENT/R EPRESENTATIVE/SURROGAT E Healthcare Agents on File Name Relationship Healthcare Agent Relationship Communication Arlen Madrid Mother Health Care Agent [email or web address] Dudley Madrid Brother First Alternate Health Care Agent Elena Rincon Friend Second Alternate Health Care Agent Care Teams Regional Sales Executive Relationship Specialty Start Date End Date Elsewhere, Pcp PCP - General Internal Medicine 09/30/22
--- OUTSIDE RECORDS SUMMARY | 2023-11-21 11:17 | XMS_ITS ---
Author Name Unknown Organization [facility] Address [address] [place] [address] Care Team Providers Care Visitor Services Coordinator Name Role Phone Unavailable Unavailable Unavailable Surgery Details Not on file Complications Check Surgery Details section. Procedure Estimated Blood Loss Check Surgery Details section. Procedure Findings Check Surgery Details section. Procedure Specimens Taken Check Surgery Details section.
--- OUTSIDE RECORDS SUMMARY | 2023-11-21 11:17 | XMS_ITS | Encounter Summary ---
Author Name Unknown Organization [facility] Address [address] [place] [phone] Care Team Providers Care Diploma Maker Name Role Phone QuintindanielKell PA-C Primary Care Provider Un available Encounter Details Date Type Department Care Team (Late st Contact Info) Description 08/15/2023 10:45 AM SKIVING MACHINE OPERATOR Telemedicine [facility] [address] [place], [place] [phone] Mari Rosario PA-C [address] [place] [address] History of COVID-19 (Primary Dx); [...] Mari Rosario PA-C - 08/15/2023 10:45 AM SKIVING MACHINE OPERATOR Chronic migraine. Acute (as needed) therapy Dihydroergotamine [...] visit in 1 year with CESAR Degroot ([phone]). Please bring your headache calendars to the follow-up appointment. ING MACHINE OPERATOR documented in this encounter Progress Notes * [...] to get in for an injection at [facility] to see if this would break [...] that she discuss this medication with her linotype worker. For acute therapy, continued with DHE injections. [...] sooner if needed. Mari Rosario PA-C 08/15/2023 ING MACHINE OPERATOR documented in this encounter Plan of Treatment [...] ([facility]) documented in this encounter Care Teams Diploma Maker Relationship Specialty Start Date End Date Kell Pan PA-C PCP - General Physician Manager Domestic 02/06/20 documented as of this encounter
--- OUTSIDE RECORDS SUMMARY | 2023-11-21 11:17 | XMS_ITS | Clinical Summary ---
Author Name Unknown Organization [facility] Address [address] [place] [address] Care Team Providers Care Seo Executive Name Role Phone Kell Pan PA-C Primary [...] for each transition of care or referral. [facility] Allergies Active Allergy Reactions Criticality Noted Date Comments Cefprozil Hives High 12/25/2006 Erythromycin Gastrointestinal Medium 11/18/2019 Iodine Edema,generalized 11/18/2019 Used for thyroid Isosorbide Nitrate Rash 06/22/2018 Latex Hives High 11/18/2019 Levofloxacin Gastrointestinal Medium 11/18/2019 Medications Medication Sig Dispensed Refills Start Date End Date Status atorvastatin (LIPITOR) 40 MG tablet 11/06/2019 Active cyclobenzaprine (FLEXERIL) 10 MG tablet 1 Tablet (10 mg) three times a day as needed (migraine/muscle tension). 09/16/2019 Active esomeprazole (NEXIUM) 40 MG capsule 11/14/2019 Active ONE TOUCH ULTRA BLUE test strips 10/06/2019 Active levothyroxine (SYNTHROID) 200 MCG tablet 10/30/2019 Active SUNMARK ALLERGY RELIEF D 10-240 MG tablet Take 1 Tablet by mouth two times a day. 09/16/2019 Active pramipexole (MIRAPEX) 0.25 MG tablet 1 Tablet (0.25 mg) three times a day. 11/05/2019 Active dulaglutide (TRULICITY) 1.5 MG/0.5ML injeciton pen Inject 1.5 mg subcutaneously once a week. Active Insulin Glargine (LANTUS SC) 70 Units. Active Acetaminophen (TYLENOL EXTRA STRENGTH OR) Active Syringe, Disposable, 3 ML For self injection of IM Ketorolac .Needs 1 1/2 25G needles. Sharps container 20 Each 1 08/03/2021 Active oxyCODONE-acetamin ophen (PERCOCET) 5-325 MG tablet Take 1 Tablet by mouth every 4 hours as needed. 03/18/2022 Active tiZANidine (ZANAFLEX) 4 MG tablet Take 1 Tablet (4 mg) by mouth daily at bedtime. 06/11/2022 Active Syringe, Disposable, 3 MLIndications:Migr raven without aura and without status migrainosus, not intractable Use with IM self injections of DHE. Also needs 1 25G needles. Filter needles for glass vials 20 Each 3 08/15/2023 Active dihydroergotamine (D.H.E.45) 1 MG/ML injectionIndicatio ns:Migraine without aura and without status migrainosus, not intractable Inject 0.5-1 mL (0.5-1 mg) intramuscularly as needed. May repeat in 1 hour or more if needed. Max 3mg/day. 10 mL 10/09/2023 Active ketorolac (TORADOL) 60 MG/2ML injection Inject 1-2 mL (30-60 mg) intramuscularly as needed for Pain. May repeat in 4-6 hours if needed. Max 120mg/day. Max 5 doses of 60mg/month 10 mL 10/09/2023 Active citalopram (CELEXA) 20 MG tablet Take 1 Tablet (20 mg) by mouth daily. Active Active Problems Problem Noted Date Diagnosed Date Localized osteoarthritis of left knee 04/06/2020 Overview: severe PF Complex tear of lateral meni scus of left knee as current injury 04/06/2020 Tear of medial meniscus of left knee, current Encounters Date Type Department Care Team Description 10/09/2023 Telephone [facility] [address] Neurology [address] [place] [address] Mari Rosario PA-C 10/08/2023 Refill [facility] [address] [place] [address] Mari Rosario PA-C Refill (ketorolac (TORADOL) 60 MG/2ML injection [Pharmacy Med Name: Ketorolac Tromethamine Intramuscular Solution 60 MG/2ML]) 10/08/2023 Refill [facility] [address] [place] [address] Mari Rosario PA-C Refill (dihydroergotamine (D.H.E.45) 1 MG/ML injection [Pharmacy Med Name: Dihydroergotamine Mesylate Injection Solution 1 MG/ML]) from Last 3 Months Family History Medical [...] Comments Blood Pressure 109/68 07/05/2022 11:20 AM ENROLLMENT MANAGEMENT MANAGER Pulse 79 07/05/2022 11:20 AM ENROLLMENT MANAGEMENT MANAGER Temperature - - Respiratory Rate 17 07/05/2022 11:20 AM ENROLLMENT MANAGEMENT MANAGER Oxygen Saturation - - Inhaled Oxygen Concentration [...] 1971 Hep C Screening (Preventive Services) 1971 HIV Screening (Preventive Services) 1987 Adult Preventive Visit 1989 HepB (1) 1990 Mammogram 04/15/2021 04/15/2020 Diabetes: Eye Exam 02/23/2022 02/23/2021 COVID-19 Vaccine ( season) 2023 04/02/2022, 10/08/2021, 10/08/2021, Additional history exists Diabetes: HGBA1C 09/12/2023 06/12/2023, , 03/07/2023, Additional history exists Influenza (Season Ended) 2024 DTaP/Tdap/Td (5 - Tdap) 06/12/2027 06/12/20, 12/08/2005, 12/08/2005, Additional history exists Pneumococcal (3 [...] Procedure Name Priority Date/Time Associated Diagnosis Comments HGB A1C (EXTERNAL RESULT) Routine 06/12/2023 9:20 AM ENROLLMENT MANAGEMENT MANAGER RADEX FNGR MINIMUM 2 VIEWS 01/23/1996 12:00 AM CDT Finger Injury Nos Fx Phalanx, Hand Nos-Close from Last 3 Months or Most Recently Relevant to Health Maintenance Care Teams Seo Executive Relationship Specialty Start Date End Date Kell Pan PA-C PCP - General Physician Associate Field Service Engineer 02/06/20
--- OUTSIDE RECORDS SUMMARY | 2023-11-21 11:17 | XMS_ITS | Encounter Summary ---
Author Name Unknown Organization [facility] Address [address], [place] [address] Care Team Providers Care Hematologist Oncologist Name Role Phone Kell Pan PA-C Primary Care Provider Un available Encounter Details Date Type Department Care Team (Late st Contact Info) Description 10/09/2023 [facility] [address] Neurology [address] [place], [place] [phone] Mari Rosario PA-C [address] [place], [place] [phone] Social History Tobacco Use Types Packs/Day Years Used Date Smoking Tobacco: Never Smokeless Tobacco: Never Alcohol Use Standard Drinks/Week Comments Yes 1 (1 standard drink = 0.6 oz pur e alcohol) rarely Sex and Gender Information Value Date Recorded Sex Assigned at Not on file Gender Identity Not on file Sexual Orientation Not on file documented as of this encounter Nursing Notes * Radha Ordaz RN - 10/09/2023 1:58 PM CDT Nurse spoke to Alea about ketorolac and citalopram. Alea recently restarted citalopram 20mg. She willadd it to her list of meds. Alea aware of potential for GI bleeding with ketorolac. She uses ketorolac 1 to 2x a month only. Nurse also spoke with pharmacist Vida Morrow to fill ketorolac. * Arlen Hubbard CMA - 10/09/2023 1:29 PM CDT Pharmacy is calling stating that there is and interaction with the ketorolac and citalopram. Pleasecall pharmacy back, states patient is waiting to grain picker Rx. documented in this encounter Plan of Treatment Not on file documented as of this encounter Visit Diagnoses Not on filedocumented in this encounter Care Teams Hematologist Oncologist Relationship Specialty Start Date End Date Kell Pan PA-C PCP - General Physician Research Director 02/06/20 documented as of this encounter
--- OUTSIDE RECORDS SUMMARY | 2023-11-21 11:17 | XMS_ITS | Encounter Summary ---
Author Name Unknown Organization [facility] Address [address] [place] [address] Care Team Providers Care Glass Wool Blanket Machine Feeder Name Role Phone Kell Pan PA-C Primary Care Provider Un available Reason for Visit * Reason Comments Refill ketorolac (TORADOL) 60 MG/2ML injection [Pharmacy Med Name: Ketorolac Tromethamine Intramuscular Solution 60 MG/2ML] Encounter Details Date Type Department Care Team (Late st Contact Info) Description 10/08/2023 Refill [facility] [address] [place], [place] [address] Orion Hale PA-C [address] [place], [place] [phone] Refill (ketorolac (TORADOL) 60 MG/2ML injection [Pharmacy Med Name: Ketorolac Tromethamine Intramuscular Solution 60 MG/2ML]) Social History Tobacco Use Types Packs/Day Years Used Date Smoking Tobacco: Never Smokeless Tobacco: Never Alcohol Use Standard Drinks/Week Comments Yes 1 (1 standard drink = 0.6 oz pur e alcohol) rarely Sex and Gender Information Value Date Recorded Sex Assigned at Not on file Gender Identity Not on file Sexual Orientation Not on file documented as of this encounter Nursing Notes * Andrew Skelton RN - 10/09/2023 12:24 PM CDT Last visit 08/15/23 Last ordered 08/15/23 Ordering for protocol * Jose Carlos Zazueta - 10/08/2023 4:24 PM CDT ketorolac (TORADOL) 60 MG/2ML injection [Pharmacy Med Name: Ketorolac Tromethamine Intramuscular Solution 60 MG/2ML] Unassigned -> Medication cannot be delegated. Last qualifying visit: 08/15/2023 (in [facility] with ORION HALE) Next scheduled visit: None Last ordered by ORION HALE: 08/15/2023 (54 days ago) QTY: 10, Refills: 0, Sig: inject 1-2 ml (30-60 mg) intramuscularly as needed for pain. may repeat in 4-6 hours if needed. max 120mg/day. max 5 doses of 60mg/month (unchanged) [employer] Embedded Refills, Reference: [id number], 10/08/2023 4:24:42 PM CDT, Pool: [facility]-PN ([id number]) documented in this encounter Plan of Treatment Not on file documented as of this encounter Visit Diagnoses Not on filedocumented in this encounter Care Teams Glass Wool Blanket Machine Feeder Relationship Specialty Start Date End Date Kell Pan PA-C PCP - General Physician Blender 02/06/20 documented as of this encounter
--- OUTSIDE RECORDS SUMMARY | 2023-11-21 11:17 | XMS_ITS | Clinical Summary ---
Author Name Unknown Organization [facility] Address [address] [place] [address] Care Team Providers Care Sales Technician Name Role Phone Elsewhere, Pcp Primary Care Provider Unavailabl e Source Comments Patient records contain information from all sites at [facility]. For routine questions regarding patient records, call [phone] during business hours, M-F 8:00 AM - 5:00 PM Central Time. Record requests for emergency care only can be directed to [phone] at any time.[facility] Allergies Active Allergy Reactions Criticality Noted Date [...] 1.1-5 % paste USE DOCTOR INSTRUCTED 10/18/19 Active scopolamine base (TRANSDERM SCOP) 1 mg [...] Test 4 times/day. Reason: High A1C 09/01/19 Active cyclobenzaprine (FLEXERIL) 10 mg tablet Take [...] lancets Test 4 times per day. 09/01/19 21 Active levothyroxine (SYNTHROID, LEVOTHROID) 200 mcg tablet daily. 09/04/19 23 Active lisinopriL (PRINIVIL,ZESTRIL ) 5 mg tablet Take 5 mg by mouth daily. 09/04/19 23 Active lorata-dine D 10-240 mg [...] 1 tablet by mouth as needed. 03/18/20 22 Active UltiCare Pen Needle 31 [...] gauge x 1 needle as needed. 08/21/19 24 Active BD Filter Needle-5 Micron 19 x 1 1/2 needle as needed. 08/21/19 24 Active Monoject Regular Luer 3 mL syringe as needed. 08/21/19 24 Active ketorolac (TORADOL) 60 mg/2 mL intramuscular injection 03/17/20 Active tiZANidine (ZANAFLEX) 4 mg tablet Take [...] Procedure visit Division of Pain Medicine in [place], [place] [address] [place] [address] Amelia Salgado APRN, WELL CLEANER, D.N.P. Pain Low Back Unspecified; Pain Myofascial 10/19/2023 Clinical Communication Division of Pain Medicine in [place], [place] [address] [place] [phone] Amelia Salgado APRN, WELL CLEANER, D.N.P. 09/19/2023 9:00 AM LACE FINISHER Telemedicine Division of Pain Medicine in [place], [place] [address] [place] [address] Caery Hinkle APRN, WELL CLEANER, M.S. Pain Low Back Unspecified (Primary Dx); Pain Myofascial from Last 3 Months Family History Medical History Relation Name Comments Anesthesia problems Father Tesfaye Coronary artery disease Father Tesfaye Depression Father Tesfaey Diabetes Father Tesfaye Hyperlipidemia Father Tesfaye Hypertension [...] How often do you attend chur or druze services? Never 09/27/2022 Do you belong to any clubs o r organizations such as methodist groups, unions, fraternal or athletic groups, or [...] and heating? Not hard at all 01/05/2023 [facility] [place] of Occupat ional Health - Occupational Stress [...] Comments Blood Pressure 127/69 06/15/2023 9:25 AM LACE FINISHER Pulse 80 06/15/2023 9:25 AM LACE FINISHER Temperature 36.6 ??C (97.9 ??F) 06/15/2023 8:43 AM CS T Respiratory Rate 13 06/15/2023 9:25 AM LACE FINISHER Oxygen Saturation 97% 06/15/2023 9:25 AM LACE FINISHER Inhaled Oxygen Concentration - - Weight 157 kg (346 lb 12.5 oz) 10/04/2022 9:10 A M CDT Height 175.5 cm (5' 9.09) 10/04/2022 9:10 AM CD T Body Mass Index 51.07 10/04/2022 9:10 AM CDT Plan of Treatment Upcoming Encounters Date Type Department Care Team (Late st Contact Info) Description 12/22/2023 1:00 PM CDT Virtual Visit Division of Pain Medicine in [place], [place] [address] [place] [address] Amelia Salgado APRN, WELL CLEANER, D.N.P. [address] [place] [address] Health Maintenance Due Date Last Done Comments CT Colonography 1971 Cologuard 1971 Colonoscopy 1971 Colorectal Cancer Screening 1971 FIT 1971 Hepatitis C Screening 1971 Mammogram 1971 Office Visit for Blood Pressure Check / Re-check 01/04/2023 10/04/2022 COVID-19 Vaccine ( season) 2023 04/02/2022, 10/08/2021, 05/04/2021, Additional history exists Influenza Vaccine (#1) 2023 Depression Screening (Annual PHQ-2) 07/17/2023 Thyroid Stimulating Hormone (TSH) test for thyroid function 02/15/2024 02/14/2023, 09/23/2022, 12/17/2021, Additional history exists Creatinine Level (Kidney Function Test) 06/12/2024 06/12/2023, 03/07/2023, 12/01/2022, Additional history exists Sodium Level 06/12/2024 06/12/2023, 02/15, 12/01/2022, Additional history exists Potassium Level 11/14/2024 11/15/2023, 06/16, 06/12/2023, Additional history exists Fasting Glucose for Diabetes [...] S/P Routine 11/15/2023 8 :16 AM CDT NM INJ TRIGGER PNT<=2 MUS Routine 10/24/2023 2:45 PM CDT Pain Low Back Unspecified Pain Myofascial EXTI BASIC METABOLIC PANEL, S/P Routine 06/12/2023 9:20 AM LACE FINISHER EXTI THYROID-STIMULATING HORMONE-SENSITIVE (S-TSH), S Routine 02/14/2023 10:12 AM CDT EXTI LIPID PANEL, S Routine 09/02/2022 7 :35 AM LACE FINISHER from Last 3 Months or Most Recently Relevant to Health Maintenance Results * NM INJ TRIGGER PNT<=2 MUS (10/24/2023 2:45 PM CDT) Narrative MMODAL - 10/24/2023 2:45 PM CDT Amelia Salgado APRN, BHANU, D.N.P. ? 10/24/2023 ??3:50 PM PM Trigger point injection (left PSIS, right PSIS, left lumbar and right lumbar) Performed by: Amelia Salgado APRN, CNS, D.N.P. Authorized by: Amelia Salgado APRN, CNS, D.N.P. ?? PROCEDURE SUMMARY Pre procedure pain [...] and evaluate for potential repeat lumbar ablation. BHANU Paul APRN, D.N.P. PROCE DURE/MINOR SURGICAL ORDERABLES MMODAL NA from Last 3 Months or Most Recently Relevant to Health Maintenance Advance Directives For more information, please contact: [phone] Documents on File Type Date Recorded Patient Guest Relations Agent Expl anation Advance Directives 10/05/2022 8:01 PM Arlen Jenkins Kathe Rincon HCPOA/ADVOCATE/AGENT/R EPRESENTATIVE/SURROGAT E Healthcare Agents on File Name Relationship Healthcare Agent Relationship Communication Arlen [place] Mother Health Care Agent [email or web address] Dudley [place] Brother First Alternate Health Care Agent Elena Rincon Friend Second Alternate Health Care Agent Care Teams Sales Technician Relationship Specialty Start Date End Date Elsewhere, Pcp PCP - General Internal Medicine 09/30/22
--- OUTSIDE RECORDS SUMMARY | 2023-11-21 11:17 | XMS_ITS | Encounter Summary ---
Author Name Unknown Organization [facility] Address [address] [place] [address] Care Team Providers Care Hide Inspector Name Role Phone Elsewhere, Pcp Primary Care Provider Unavailabl e Reason for Visit * Outpatient (Routine) - Closed Specialty Diagnoses / Procedures Referred By Contac t Referred To Contact Diagnoses Pain Low Back Unspecified Pain Myofascial Procedures PM Trigger point injection Amelia Salgado APRN, BHANU, D.N.P. [address] [place] [address] [facility] Referral ID Status Reason Start Date Expiration Date Visits Re quested Visits Authorized [id number] Closed 08/29/2023 08/28/2024 1 1 Encounter Details Date Type Department Care Team (Latest Contact Info) Description 10/24/2023 2:45 PM CDT Procedure visit Division of Pain Medicine in [place], [place] [address] [place] [phone] Amelia Salgado APRN, BEAUTY SALES ADVISOR, D.N.P. [address] [place] [phone] Pain Low Back Unspecified; Pain Myofascial Social History Tobacco Use Types [...] How often do you attend chur or sikh services? Never 09/27/2022 Do you belong to [...] and heating? Not hard at all 01/05/2023 [facility] [place] of Occupat ional Health - Occupational Stress [...] your living situation today? I have a [facility] place to live 01/05/2023 Education Answer [...] as of this encounter Procedure Notes * Amelia Salgado APRN, CNS, D.N.P. - 10/24/2023 2:45 PM CDTAssociated Order(s): PM Trigger point injection Pre-Procedure Diagnose(s): Pain Low Back Unspecified; Pain Myofascial Post-Procedure Diagnose(s): Pain Low Back Unspecified; Pain Myofascial PM Trigger point injection (left PSIS, right PSIS, left lumbar and right lumbar) Performed by: Amelia Salgado APRN, CNS, D.N.P. Authorized by: Amelia Salgado APRN, CNS, D.N.P. PROCEDURE SUMMARY Pre procedure pain score: 4/10 [...] 10 Total steroid in injectate (mg): 40 5 mL BUPivacaine 0.5 % (5 mg/mL) [...] in good condition under their own power. PSIS procedure description: The patient was placed [...] as applicable for the procedure. Skin preparation: chlorhexidine POST-PROCEDURE DETAILS Complications: no apparent complications Comments Patient reports 70% improvement that lasted 2 months before pain recurrence. Describes as deep pressure most aggravated with weightbearing activities such as standing and walking. Alleviated with sitting and lying down. Patient will return on 12/22/23 to discuss and evaluate for potential repeat lumbar ablation. documented in this encounter Plan of Treatment Upcoming Encounters Date Type Department Care Team (Late st Contact Info) Description 12/22/2023 1:00 PM CDT Virtual Visit Division of Pain Medicine in [place], [place] [address] [place] [address] Amelia Salgado APRN, BEAUTY SALES ADVISOR, D.N.P. [address] [place] [address] documented as of this encounter Procedures Procedure Name Priority Date/Time Associated Diagnosis Comments HI INJ TRIGGER PNT<=2 MUS Routine 10/24/2023 2:45 PM CDT Pain Low Back Unspecified Pain Myofascial documented in this encounter Results * HI INJ TRIGGER PNT<=2 MUS (10/24/2023 2:45 PM CDT) Narrative MMODAL - 10/24/2023 2:45 PM CDT Amelia Salgado APRN, CNS, D.N.P. ? 10/24/2023 ??3:50 PM PM Trigger [...] Diagnoses Diagnosis Pain Low Back Unspecified Pain Myofascial documented in this encounter Administered Medications Inactive Administered Medications - up to 3 most recent administrations Medication Order MAR Action Action Date Dose Rate Site BUPivacaine 0.5 % (5 mg/mL) injection 5 mL (MARCAINE) 5 mL, injection, One-Time Injection, Starting on Mon10/24/23 at 1445, For 1 dose Given 10/24/2023 2:45 PM CDT 5 mL lidocaine 10 mg/mL (1 %) injection 4 mL (XYLOCAINE) 4 mL, injection, One-Time Injection, Starting on Mon10/24/23 at 1445, For 1 dose Given 10/24/2023 2:45 PM CDT 4 mL triamcinolone acetonide injection 40 mg (KENALOG-40) 40 mg, injection, One-Time Injection, Starting on Mon10/24/23 at 1445, For 1 dose Given 10/24/2023 2:45 PM CDT 40 mg documented in this encounter Care Teams Hide Inspector Relationship Specialty Start Date End Date Elsewhere, Pcp PCP - General Internal Medicine 09/30/22 documented as of this encounter
--- OUTSIDE RECORDS SUMMARY | 2023-11-21 11:17 | XMS_ITS | Encounter Summary ---
Author Name Unknown Organization [facility] Address [address] [place] [address] Care Team Providers Care Molder Wax Ball Name Role Phone Kell Pan PA-C Primary Care Provider Un available Reason for Visit * Reason Comments Refill dihydroergotamine (D .H.E.45) 1 MG/ML injection [Pharmacy Med Name: Dihydroergotamine Mesylate Injection Solution 1 MG/ML] Encounter Details Date Type Department Care Team (Late st Contact Info) Description 10/08/2023 Refill [facility] [address] [place], [place] [address] Orion Hale PA-C [address] [place], [place] [address] Refill (dihydroergotamine (D.H.E.45) 1 MG/ML injection [Pharmacy Med Name: Dihydroergotamine Mesylate Injection Solution 1 MG/ML]) Social History Tobacco Use Types Packs/Day Years [...] Notes * Radha Ordaz RN - 10/09/2023 1:36 PM CDT 1-30-24 Refill protocol * Jose Carlos Zazueta Xrwcomm - 10/08/2023 4:24 PM CDT dihydroergotamine (D.H.E.45) 1 MG/ML injection [Pharmacy Med Name: Dihydroergotamine Mesylate Injection Solution 1 MG/ML] Miscellaneous - 12 Month Visit 1 -> Refill x 12 months (until due for an office visit) -> Calculate the quantity and number of refills manually. Last qualifying visit: 08/15/2023 (in [facility] with ORION HALE) Next scheduled visit: None Last ordered by ORION HALE: 07/05/2022 (460 days ago) QTY: 10, Refills: 3, Sig: inject 0.5-1 ml (0.5-1 mg) intramuscularly as needed. may repeat in 1 hour or more if needed. max 3mg/day. (unchanged) [employer] Embedded Refills, Reference: [id number], 10/08/2023 4:24:42 PM CDT, Pool: [facility]-PN ([id number]) documented in this encounter Plan of Treatment Not on file documented as of this encounter Visit Diagnoses Diagnosis Migraine without aura and without status migrainosus, not intractable Migraine without aura, without mention of intractable migraine without mention of status migrainosus documented in this encounter Care Teams Molder Wax Ball Relationship Specialty Start Date End Date Kell Pan PA-C PCP - General Physician Book Sewing Machine Operator 02/06/20 documented as of this encounter
--- OUTSIDE RECORDS SUMMARY | 2023-11-21 11:18 | XMS_ITS | Clinical Summary ---
Author Name Unknown Organization [facility] Address [place], [place] [address] Care Team Providers Care German Instructor Name Role Phone Kar Soto MD Unavailable [phone] Olvin Vega MD Unavailable Bhaskar Page MD Unavailable Major Chandler MBBS Unavailable Isak Nielson MD Unavailable [phone] Jillian Daley DENTURE CONTOUR WIRE SPECIALIST Unavailable Ania Avalos PsyD, LP Unavailable [phone] Na Estes MD Primary Care Provider [phone] Allergies Active Allergy Reactions Criticality Noted Date Comments Cefprozil Hives 12/25/2006 Had ceftriaxone 2020 without issues Erythromycin Diarrhea 12/25/2006 Erythromycin Base Diarrhea 05/11/2023 Isosorbide Mononitrate Rash 06/22/2018 Iodinated Contrast Media *Unknown 08/16/2023 Iodine Other - Describe In Comment Field,Angioedema,Na [...] every 6 hours if needed (pain, headache). Active insulin syringe-needle u-100 (BD SAFETYGLIDE) 0.3 mL 31 gauge x 11/29Indications:Un controlled type 2 diabetes mellitus, without long-term current use of insulin For administering insulin at home. 1 box 0 Active blood-glucose meterIndications:Un controlled type 2 diabetes mellitus, without long-term current use of insulin Dispense meter, test strips, lancets covered by pt ins. E11.9 NIDDM type II - Test 4 times/day. 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 200 Each 11 1 Active PreviDent 5000 Sensitive 1.1-5 % pste USE DOCTOR INSTRUCTED 1 Active dihydroergotamine (D.H.E.45) 1 mg/mL injection Inject 0.5-1 mg intramuscular. 2 Active scopolamine 1mg over 3 days (TRANSDERM SCOP) patchIndications:H/ O motion sickness Apply 1 Patch on dry, clean, hairless skin every 72 hours if needed for Nausea/Vomiting. 4 Patch 2 Active ondansetron (ZOFRAN) 4 mg tabletIndications:N ausea Take 1 Tablet (4 mg) by mouth every 8 hours if needed for Nausea/Vomiting. 60 Tablet 3 Active metoprolol succinate (Toprol XL) 25 mg Sustained-Release tabletIndications:H ypertension,Paroxys mal SVT (supraventricular tachycardia) (HC) Take 1 Tablet (25 mg) by mouth [...] times daily. 60 g 5 3 Active levothyroxine (SYNTHROID) 200 mcg tabletIndications:P [...] glycol 3350 (MIRALAX ORAL) Take by mouth. A ctive ketorolac tromethamine (TORADOL IM) Inject intramuscular each time if needed (Migraine). Active pregabalin (LYRICA) 300 mg capsule Take 300 mg by mouth two times daily. 3 Active pen needle, diabetic (UltiCare Pen Needle) 31 gauge x /16Indications:Un controlled type 2 diabetes mellitus with hyperglycemia (HC) For administering insulin at home. 450 Each 3 4 Active Lantus Solostar U-100 Insulin 100 unit/mL (3 mL) penIndications:Type 2 diabetes mellitus with hyperglycemia, with long-term current use of insulin (HC) Inject 80 units subcutaneous 2 times daily 12 hours apart. 150 mL 4 Active pramipexole (MIRAPEX) 0.25 mg tabletIndications:R estless legs Take 3-4 Tablets (0.75-1 mg) by mouth at bedtime. 360 Tablet 1 4 Active cyproheptadine (PERIACTIN) 4 mg tabletIndications:N ausea Take 1 Tablet (4 mg) by mouth one time if needed (nausaea) for up to 1 dose. 30 Tablet 4 Active cyproheptadine (PERIACTIN) 4 mg tablet Take 4 mg by mouth. 1 11/15/19 24 Discontinue d(Reorder (E-cancel not sent)) oxyCODONE-acetamino phen (Percocet) 5-325 mg per tabletIndications:L umbar radiculopathy Take 1 Tablet by mouth every 4 hours if needed for Pain. Max acetaminophen dose: 4000mg in 24 hrs. 12 Tablet 2 11/15/19 24 Discontinue d(*Med complete/Re gimen complete/Le mark of care change) tiZANidine (ZANAFLEX) 2 mg tablet Take 2 Tablets (4 mg) by mouth. 0 2 11/15/19 24 Discontinue d(*Med complete/Re gimen complete/Le mark of care change) benzonatate (Tessalon Perles) 100 mg capsuleIndications: Viral sinusitis Take 1 Capsule (100 mg) by mouth 3 times daily if needed for Cough. 30 Capsule 3 11/15/19 24 Discontinue d(*Med complete/Re gimen complete/[place] mark of care change) codeine-guaiFENesin (ROBITUSSIN AC) 10-100 mg/5 mL liquidIndications:V iral sinusitis Take 5-10 mL by mouth at bedtime if needed for Cough. Max dose 60 mL per 24 hrs. 100 mL 3 11/15/19 24 Discontinue d(*Med complete/Re gimen complete/Le mark of care change) nitrofurantoin macrocrystals/monoh ydrate (MACROBID) 100 mg capsuleIndications: UTI (urinary tract infection), uncomplicated Take 1 Capsule (100 mg) by mouth two times daily for 5 days. 10 Capsule 4 10/24/19 24 trimethoprim-sulfam ethoxazole, 160-800 mg, (BACTRIM DS, SEPTRA DS) tabIndications:Recu rrent UTI Take 1 Tablet by mouth two times daily for 3 days. 6 Tablet 4 11/03/19 24 nitrofurantoin macrocrystals/monoh ydrate (MACROBID) 100 mg capsuleIndications: UTI (urinary tract infection), uncomplicated Take 1 Capsule (100 mg) by mouth two times daily for 7 days. 14 Capsule 4 11/09/19 24 ciprofloxacin HCl (CIPRO) 500 mg tabletIndications:U TI (urinary tract infection), uncomplicated Take 1 Tablet (500 mg) by mouth two times daily for 5 days. 10 Tablet 4 11/20/19 24 Active Problems Patient Care Coordination No te [...] 03/14/2014 Overview: Ran calculations Mar 14.;2014: With age43,ahsu89,hdl52, bdh871, treated hypertension, +dm. 10year ATHEROSCLEROTIC CARDIOVASCULAR DISEASE [...] 01/22/01: Surgery: subtotal thyroidectomy Pathology (reviewed at [facility] - see notes from [facility] that are currently in the system as [...] follow up with Dr. Tam Daley with [facility] for several years. This included a whole [...] Encounters Date Type Department Care Team Description 11/20/2023 8:30 AM CDT Procedure Only [facility] [address] [place] [address] Yo Owens L Ac Acupuncture 11/20/2023 Travel 11/18/2023 Travel 11/15/2023 7:30 AM CDT [place] [facility] [address] [place] [address] Na Estes MD Pre-Op Exam (Left knee replacement/Dr Sven Owusu /11/21/2023/[facility] /[phone]) 11/15/2023 Telephone [facility] [address] [place] [address] Na Estes MD Refill Request; Questions 11/15/2023 Telephone [facility] [id number] [place] [address] Na Estes MD 11/14/2023 Travel 11/13/2023 6:53 AM CDT - 11/13/2023 11:59 PM CDT Hospital Encounter [facility] [place] [address] [place] [address] Reed Barclay PA Hassell, Julie A, PT 11/13/2023 Travel 11/10/2023 2:55 PM CDT - 11/10/2023 11:59 PM CDT Hospital Encounter [facility] [place] [place] [address] [place] [address] Reed Barclay PA Hassell, Julie A, PT 11/09/2023 8:00 AM CDT Procedure Only [facility] [address] [place] [address] Yo Owens L Ac Acupuncture 11/09/2023 Travel 11/06/2023 10:57 AM CDT - 11/06/2023 11:59 PM CDT Hospital Encounter [facility] [place] [place] [address] [place] [address] Reed Barclay PA Hassell, Julie A, PT 11/06/2023 8:30 AM CDT Telemedicine [facility] [address] [facility] [address] [place] [address] Ania Avalos PsyD, LP Individual Therapy; Telehealth (/) 11/05/2023 Travel 11/02/2023 6:52 AM CDT - 11/02/2023 11:59 PM CDT [facility] [address] [place] [address] Reed Barclay, Stacy Rene, PT 11/02/2023 Orders Only [facility] [id number] [place] [address] Na Estes MD <No scans attached> 11/02/2023 Travel 10/31/2023 9:00 AM CDT Orders Only [facility] [id number] [place] [address] Lab (/) 10/31/2023 Travel 10/26/2023 8:00 AM CDT Procedure Only [facility] [address] [place] [address] Yo Owens L Ac Acupuncture 10/26/2023 Travel 10/25/2023 8:30 AM CDT Telemedicine [facility] [id number] [place] [address] Na Estes MD Telehealth (no vitals ) 10/24/2023 Travel 10/19/2023 3:00 PM CDT Office Visit [facility] [address] [place] [address] Marlene King PA Dysuria 10/19/2023 11:21 AM CDT - 10/19/2023 11:59 PM CDT Hospital Encounter [facility] [address] [place] [address] Robert Gibbons MD Hassell, Julie A, PT 10/19/2023 Travel 10/16/2023 8:30 AM CDT Telemedicine [facility] [facility] [address] [place] [address] Robbie, Ania A, PsyD, LP Individual Therapy; Telehealth 10/15/2023 Travel 10/13/2023 8:00 AM CDT Procedure Only [facility] [address] [place] [address] Yo Owens L Ac Acupuncture 10/13/2023 Travel 10/09/2023 Travel 10/06/2023 3:45 PM CDT - 10/06/2023 11:59 PM CDT Hospital Encounter [facility] [place] [address] [place] [address] Robert Gibbons MD Hassell, Julie A, PT 10/06/2023 Travel 10/02/2023 2:20 PM CDT - 10/02/2023 11:59 PM CDT Hospital Encounter [facility] [place] [address] [place] [address] Robert Gibbons MD Hassell, Julie A, PT 10/02/2023 Travel 09/29/2023 8:00 AM CDT Procedure Only [facility] [address] [place] [address] Yo Owens L Ac Acupuncture 09/29/2023 Travel 09/26/2023 12:51 PM CDT - 09/26/2023 11:59 PM CDT Hospital Encounter [facility] [place] [address] [place] [address] Robert Gibbons MD Hassell, Julie A, PT 09/26/2023 Travel 09/25/2023 8:30 AM CDT Telemedicine [facility] [address] [place] [address] Robbie, Ania A, PsyD, LP Individual Therapy; Telehealth 09/21/2023 10:30 AM TRAVEL SALES CONSULTANT Office Visit [facility] [address] [place] [address] Na Estes MD UTI (Patient has nausea and vomiting since last evening after taking first dose of Macrobid yesterday afternoon - none taken today. ) 09/21/2023 Travel 09/20/2023 8:40 AM TRAVEL SALES CONSULTANT Orders Only [facility] [id number] [place] [address] Lab 09/19/2023 10:20 AM TRAVEL SALES CONSULTANT Telemedicine [facility] [address] [place] [address] Leslee Dee PA Telehealth (UTI) 09/19/2023 Travel 09/18/2023 Travel 09/15/2023 9:00 AM TRAVEL SALES CONSULTANT Procedure Only [facility] [address] [place] [address] Yo Owens L Ac Acupuncture 09/15/2023 Travel 09/12/2023 Travel 09/12/2023 Refill [facility] [id number] [place] [address] Na Estes MD Refill Request (Pramipexole/) 09/11/2023 3:06 PM TRAVEL SALES CONSULTANT - 09/11/2023 11:59 PM TRAVEL SALES CONSULTANT Hospital Encounter [facility] [place] [address] [place] [address] Reed Barclay PA Hassell, Julie A, PT 09/11/2023 Travel 09/06/2023 8:30 AM TRAVEL SALES CONSULTANT Telemedicine [address] [facility] [address] [place] [address] Ania Avalos PsyD, LP Individual Therapy; Telehealth 09/04/2023 3:13 PM TRAVEL SALES CONSULTANT - 09/04/2023 11:59 PM TRAVEL SALES CONSULTANT [facility] [address] [address] Reed Barclay Stacy Rene, PT 09/04/2023 Travel from Last 3 Months Immunizations Name Administration Dates Next Due COVID-19 vaccine ([employer] 30mcg/0.3mL) STEFANIA CASTILLO 10/08/2021,05/04/2021,10/30/2020,2020 DT (Age < 7 years) 12/08/2005 Hepatitis B (Adult) 09/24/1999,05/03/1999,1998 Influenza Virus, Unspecified 04/30/2015(Deferred : Patient Refused) Pneumococcal Poly,23-Valent (Pneumovax) 01/31/2020 Pneumococcal conj 13-Valent (Prevnar 13) 09/08/2021 Td, Preservative Free (age > = 7 Years) 12/08/2005 Tdap 06/12/2017,12/08/2005 Zoster (Shingrix-RZV, recombinant) 07/30/2021, Family History Medical History Relation Name Comments Hypertension Brother Cancer Father diffuse large B -cell lymphoma Depression Father Diabetes Father Heart Disease Father cad Hypertension Mother improved after fci Other Mother scleroderma Cancer Other first cousin [...] Answer Date Recorded PHQ-2 TOTAL SCORE 1 11/05/2023 Social Connections Answer Date Recorded Frequency of [...] Sex Assigned at Female 07/05/2021 12:17 AM TRAVEL SALES CONSULTANT Gender Identity Female 07/05/2021 12:17 AM TRAVEL SALES CONSULTANT Sexual Orientation Straight 07/05/2021 12 :17 AM TRAVEL SALES CONSULTANT Travel History Travel Start Travel End [place] 10/27/2023 10/30/2023 Obstetrics History Para Term AB IAB SAB Ectopic Multiple Livin g Live Births 0 0 0 0 0 0 0 0 0 0 Last Filed Vital Signs Vital Sign Reading Time Taken Comments Blood Pressure 130/79 11/15/2023 7:31 AM CDT Pulse 70 11/15/2023 7:31 AM CDT Temperature 36.9 ??C (98.4 ??F) 10/19/2023 3:00 PM CD T Respiratory Rate 18 11/15/2023 7:31 AM CDT Oxygen Saturation 99% 11/15/2023 7:31 AM CDT Inhaled Oxygen Concentration - - Weight 178.3 kg (393 lb) 11/15/2023 7:31 AM CDT Height 175.3 cm (5' 9) 11/15/2023 7:31 AM CDT Body Mass Index 58.04 11/15/2023 7:31 AM CDT Plan of Treatment Upcoming Encounters Date Type Department Care Team (Late st Contact Info) Description 11/27/2023 8:30 AM CDT Telemedicine [facility] [address] [facility] [address] [place], [place] [id number] Ania Avalos PsyD, ROBINSON [address] [facility] [address] [place] [address] 12/08/2023 8:00 AM CDT Procedure Only [facility] [address] [place] [address] Yo Owens L Ac [address] [place] [address] 12/18/2023 8:30 AM CDT Telemedicine [facility] [address] [place] [address] Robbie, Ania A, PsyD, LP [address] [place] [address] 01/08/2024 8:30 AM CDT Telemedicine [facility] [address] [place] [address] Robbie, Ania A, PsyD, LP [address] [place] [address] 01/29/2024 8:30 AM CDT Telemedicine [facility] [address] [place] [address] Robbie, Ania A, PsyD, LP [address] [place] [address] 02/16/2024 8:30 AM CDT Telemedicine [facility] [address] [place] [address] Robbie, Ania A, PsyD, LP [address] [place], [place] [id number] 03/04/2024 8:30 AM CDT Telemedicine [facility] [address] [place] [address] Robbie, Ania A, PsyD, LP [address] [place], [place] [id number] 03/25/2024 8:30 AM CDT Telemedicine [facility] [address] [place] [address] Robbie, Ania A, PsyD, LP [address] [place] [address] 04/11/2024 8:30 AM CDT Telemedicine [facility] [address] [facility] [address] [place] [address] Robbie, Ania A, PsyD, LP [address] [facility] [address] [place], [place] [id number] Health Maintenance Due Date Last Done Comments HIV for age 15-65 1986 Fecal testing sDNA-FIT ([place] guard) for age 45-75 2016 COVID-19 vaccine series (2022- season) 2023 04/02/2022, 10/08/2021, 05/04/2021, Additional history exists Mammogram for age 45-75 07/07/2024 07/07/20, 06/17/2022, 06/14/2021, Additional history exists Depression screening for age 12+ 11/08/2024 11/09/2023, 11/06/2023, 11/06/2023, Additional history exists BMI (ht and wt on same day) for age 18+ 11/14/2024 11/15/2023, 10/19/2023, 09/21/2023, Additional history exists Tetanus booster 06/12/2027 06/12/2017, 11/15, 12/08/2005 Lipids for age 45-75 09/02/2027 09/02/2022, 02/25/2022, 01/22/2021, Additional history exists Pneumococcal series for age 6-64 (3 of 3 - PPSV23 or PCV20) 2036 09/08/2021, 01/31/2020 Hepatitis B series for Diabetes Completed 09/24/1999, 05/03/1999, 03/10/1999 Tdap Completed 06/12/2017, 12/08/2005 Zoster (shingles) series for age 50+ Completed 07/30/2021, 05/21/2021 Hepatitis C screening for ag e 18-79 Completed 02/25/2022 Medical Devices Implanted Type Area Shipping Room Supervisor Device Identifier Shelf Expiration Date Model / Serial / Lot Iud, Han - [id number] Implanted:Qty: 1 on 01/02/2015 by Mireya Avila MD at [facility] N/A: Uterus R-BACILIO 08/04/2017 [id number] / / [id number] Screw Foot 5x50mm Fixos Comp Implanted:Qty: 1 on 08/20/2018 by Jerod Rivera DPM at [facility] Left: Calcaneus Description:SCREW FOOT 5X50M M FIXOS COMP Procedures Procedure Name Priority Date/Time Associated Diagnosis Comments ACUPUNCTURE PLAN OF CARE Routine 11/21/2023 9:30 AM CDT Chronic pain of both knees Other low back pain Other chronic pain Chronic intractable headache, unspecified headache type Chronic migraine without aura without status migrainosus, not intractable ACUPUNCTURE PLAN OF CARE Routine 11/20/2023 8:55 AM CDT Chronic pain of both knees Other low back pain Other chronic pain Chronic intractable headache, unspecified headache type Chronic migraine without aura without status migrainosus, not intractable URINE CULTURE Add On 11/15/2023 8:16 AM CDT UTI (urinary tract infection), uncomplicated URINALYSIS MICROSCOPIC Routine 11/15/2023 8:16 AM CDT History of recurrent urinary tract infection UA W/ SEDIMENT EXAM REFLEXED PER CRITERIA Routine 11/15/2023 8:16 AM CDT History of recurrent urinary tract infection POTASSIUM Routine 11/15/2023 8:16 AM CDT Preoperative cardiovascular examination HEMOGLOBIN A1C Routine 11/15/2023 8:16 AM CDT Type 2 diabetes mellitus with hyperglycemia, with long-term current use of insulin (HC) HEMOGLOBIN Routine 11/15/2023 8:16 AM CDT Preoperative cardiovascular examination ACUPUNCTURE PLAN OF CARE Routine 11/09/2023 7:53 AM CDT Chronic pain of both knees Other low back pain Other chronic pain Chronic intractable headache, unspecified headache type Chronic migraine without aura without status migrainosus, not intractable URINE CULTURE Add On 10/31/2023 9:02 AM CDT Recurrent UTI URINALYSIS MICROSCOPIC Routine 10/31/2023 9:02 AM CDT Recurrent UTI UA W/ SEDIMENT EXAM REFLEXED PER CRITERIA Routine 10/31/2023 9:02 AM CDT Recurrent UTI ACUPUNCTURE PLAN OF CARE Routine 10/26/2023 7:57 AM CDT Chronic pain of both knees Other low back pain Other chronic pain Chronic intractable headache, unspecified headache type Chronic migraine without aura without status migrainosus, not intractable URINE CULTURE Add On 10/19/2023 2:57 PM CDT UTI (urinary tract infection), uncomplicated URINALYSIS MICROSCOPIC Routine 10/19/2023 2:57 PM CDT UTI (urinary tract infection), uncomplicated UA W/ SEDIMENT EXAM REFLEXED PER CRITERIA Routine 10/19/2023 2:57 PM CDT UTI (urinary tract infection), uncomplicated ACUPUNCTURE PLAN OF CARE Routine 10/13/2023 7:49 AM CDT Chronic pain of both knees Other low back pain Other chronic pain Chronic intractable headache, unspecified headache type Chronic migraine without aura without status migrainosus, not intractable ACUPUNCTURE PLAN OF CARE Routine 09/29/2023 7:51 AM CDT Chronic pain of both knees Other low back pain Other chronic pain Chronic intractable headache, unspecified headache type Chronic migraine without aura without status migrainosus, not intractable URINALYSIS MICROSCOPIC Routine 09/20/2023 8:44 AM TRAVEL SALES CONSULTANT Dysuria URINE CULTURE Routine 09/20/2023 8:44 AM TRAVEL SALES CONSULTANT Dysuria UA W/ SEDIMENT EXAM REFLEXED PER CRITERIA Routine 09/20/2023 8:44 AM TRAVEL SALES CONSULTANT Dysuria ACUPUNCTURE PLAN OF CARE Routine 09/15/2023 8:52 AM TRAVEL SALES CONSULTANT Chronic pain of both knees Other low back pain Other chronic pain Chronic intractable headache, unspecified headache type Chronic migraine without aura without status migrainosus, not intractable XR MAMMO BILAT SCREENING Routine 07/07/2023 8:34 AM TRAVEL SALES CONSULTANT Visit for screening mammogram LC LIPID PANEL AND CHOL/HDL RATIO Routine 09/02/2022 7:35 AM TRAVEL SALES CONSULTANT Type 2 diabetes mellitus with hyperglycemia, with long-term current use of insulin (HC) ANTI HCV Routine 02/25/2022 12:11 PM CDT Need for hepatitis C screening test from Last 3 Months or Most Recently Relevant to Health Maintenance Results * (ABNORMAL) URINALYSIS MICROSCOPIC (11/15/2023 8:16 AM CDT) Only the most recent of4 resultswithin the time period is included. RBC 6-10(A) 0-2, None Seen /HPF 11/15/2023 8:38 AM CDT [facility] WBC >100(A) 0-2, 3-5, None Seen /HPF 11/15/2023 8:38 AM CDT [facility] BACTERIA Many(A) None Seen, Rare, Few Bacteria/H PF 11/15/2023 8:38 AM CDT [facility] EPITHELIAL CELLS Moderate(A ) None Seen, Few Epi/HPF 11/15/2023 8:38 AM CDT [facility] WHITE CELL CLUMPS Present(A) (none) 11/15/2023 8:38 AM CDT [facility] Urine URINE SPECIMEN / Unknown Non-Blood / Unknown 11/15/2023 8:16 AM CDT 11/15/2023 8:16 AM CDT Na Estes MD URINE [facility] [address] [place] [address], * (ABNORMAL) URINE CULTURE (11/15/2023 8:16 AM CDT) Only the most recent of4 resultswithin the time period is included. CULTURE RESULT(A) 11/18/2023 7:07 AM CDT [facility] CULTURE >100,000 CFU/mL Escherichia coli 11/18/2023 7:07 AM CDT [facility] Urine URINE SPECIMEN / Unknown Non-Blood / Unknown 11/15/2023 8:16 AM CDT 11/15/2023 8:16 AM CDT Narrative Organism Antibiotic Method Susceptibility Escherichia coli TRIMETHOPRIM/SULF <=1/19: S Escherichia coli AMPICILLIN <=2: S Escherichia coli CEFAZOLIN-UC <=4: S Comment:Cefazolin-UC interpretations are for therapy of uncomplicated UTIs due to E.coli, K.pneumoniae, or P.mirablis. Cefazolin breakpoint is used as a surrogate to predict results for the oral agents - cefdinir, cefuroxime, and cephalexin, when used for therapy of uncomplicated UTIs due to E coli, K, pneumoniae, and P. mirabilis. The FDA recommends cefadroxil susceptibility can be deduced from cefazolin. Escherichia coli GENTAMICIN <=1: S Escherichia coli CEFTRIAXONE <=1: S Escherichia coli CEFTAZIDIME <=1: S Escherichia coli LEVOFLOXACIN <=0.12: S Escherichia coli CIPROFLOXACIN <=0.25: S Escherichia coli PIPERACILLIN/TAZO <=4: S Escherichia coli AMPICILLIN/SULBACTAM <=2: S Escherichia coli CEFEPIME <=1: S Escherichia coli TOBRAMYCIN <=1: S Escherichia coli MEROPENEM <=0.25: S Escherichia coli NITROFURANTOIN <=16: S Na Estes MD MICROBIOLOGY [facility] [address] [place] [address], * HEMOGLOBIN (11/15/2023 8:16 AM CDT) Pathologist [facility] HEMOGLOBIN 12.6 12.0 - 16.0 g/dL 11/15/2023 8:20 AM CDT [facility] MCV 82 80 - 100 fL 11/15/2023 8:20 AM CDT [facility] Blood BLOOD SPECIMEN / Unknown Venipuncture / Unknown 11/15/2023 8:16 AM CDT 11/15/2023 8:16 AM CDT Na Estes MD HEMATOLOGY Performing Organization Address City/[facility]/ZIP Co de Phone Number [facility] [address] [place] [address], [place] * POTASSIUM (11/15/2023 8:16 AM CDT) POTASSIUM 4.0 3.5 - 5.1 mmol/L 11/15/2023 3:00 PM CDT [facility] Blood BLOOD SPECIMEN / Unknown Venipuncture / Unknown 11/15/2023 8:16 AM CDT 11/15/2023 8:16 AM CDT Na Estes MD CHEMISTRY Performing Organization Address City/[facility]/ZIP Co de Phone Number [facility] [address] [place] [id number], [place] * (ABNORMAL) UA W/ SEDIMENT EXAM REFLEXED PER CRITERIA (11/15/2023 8:16 AM CDT) Only the most recent of4 resultswithin the time period is included. COLOR Yellow Yellow Color 11/15/2023 8:38 AM CDT [facility] CLARITY Slightly Cloudy(A) Clear Clarity 11/15/2023 8:38 AM CDT [facility] SPECIFIC GRAVITY,URINE 1.025 1.010, 1.015, 1.020, 1.025 11/15/2023 8:38 AM CDT [facility] PH,URINE 6.0 6.0, 7.0, 8.0, 5.5, 6.5, 7.5, 8.5 11/15/2023 8:38 AM CDT [facility] UROBILINOGEN, QUALITATIVE Normal Normal EU/dl 11/15/2023 8:38 AM CDT [facility] PROTEIN, URINE Negative Negative mg/dL 11/15/2023 8:38 AM CDT [facility] GLUCOSE, URINE Negative Negative mg/dL 11/15/2023 8:38 AM CDT [facility] KETONES,URINE Negative Negative mg/dL 11/15/2023 8:38 AM CDT [facility] BILIRUBIN,URI NE Negative Negative 11/15/2023 8:38 AM CDT [facility] OCCULT BLOOD,URINE Small(A) Negative 11/15/2023 8:38 AM CDT [facility] NITRITE Positive(A) Negative 11/15/2023 8:38 AM CDT [facility] LEUKOCYTE ESTERASE Large(A) Negative 11/15/2023 8:38 AM CDT [facility] Urine URINE SPECIMEN / Unknown Non-Blood / Unknown 11/15/2023 8:16 AM CDT 11/15/2023 8:16 AM CDT Na Estes MD URINE [facility] [address] [place] [address], * (ABNORMAL) HEMOGLOBIN A1C MONITORING (POCT) (11/15/2023 8:16 AM CDT) HEMOGLOBIN A1C MONITORING (POCT) 7.4(H) <=6.4 % 11/15/2023 8:27 AM CDT [facility] Blood BLOOD SPECIMEN / Unknown Venipuncture / Unknown 11/15/2023 8:16 AM CDT 11/15/2023 8:16 AM CDT Narrative [facility] - 11/15/2023 8:27 AM CDT ? (<=6.9%) ? Indicates good control ? (7.0% to 7.9%) ? Indicates fair control ? (>=8.0%) ? Indicates poor control ?? NOTE: ??These thresholds are guidelines and ?individual targets may vary. Falsely low levels may be seen with: Recent Transfusion, Recent Significant Blood Loss, Hemolytic Diseases, or Falsely elevated levels may be seen with: Untreated Anemias, Splenectomy ? Na Estes MD CHEMISTRY [facility] [address] [place] [address], * XR MAMMO BILAT SCREENING (07/07/2023 8:34 AM TRAVEL SALES CONSULTANT) Anatomical Region Laterality Modality BREASTS, Breast Left, Breast Right Bilateral Mammography Impressions 07/07/2023 12:59 PM TRAVEL SALES CONSULTANT ??There is no radiographic evidence for malignancy. ??Recommend annual mammograms. MAMMOGRAM ASSESSMENT: ??ACR 1 Negative PATIENTS: You will also receive a letter with your examination results in an easy to read format. ??If you have questions about your results, please contact your referring provider. Narrative 07/07/2023 12:59 PM TRAVEL SALES CONSULTANT For Patients: As a result of the Century Cures Act, medical imaging exams and procedure reports are released immediately into your electronic medical record. You may view this report before your referring provider. If you have questions, please contact your health care provider. XR MAMMO BILAT SCREENING [[id number]] CLINICAL HISTORY: ??This is an asymptomatic 53 y.o. patient. INDICATION FOR EXAM: Mammogram Screening. TECHNIQUE: CC & MLO views were obtained. ??This study was evaluated with the assistance of Computer-Aided Detection. COMPARISON FILM: Yes 06/17/22 [facility] 06/14/21 [facility] FINDINGS: ??The breasts have scattered areas of fibroglandular density. There are no dominant masses, suspicious micro calcifications or areas of architectural distortion. Yenni Sanchez DENTURE CONTOUR WIRE SPECIALIST MAMMO * LC LIPID PANEL AND CHOL/HDL RATIO (09/02/2022 7:35 AM TRAVEL SALES CONSULTANT) Cholesterol, Total 144 100 - 199 mg/dL 09/06/2022 11:06 PM TRAVEL SALES CONSULTANT [facility] Triglycerides 148 0 - 149 mg/dL 09/06/2022 11:06 PM [facility] HDL Cholesterol 43 >39 mg/dL 11:06 PM [facility] VLDL Cholesterol Blake 26 5 - 40 mg/dL 09/06/2022 11:06 PM [facility] LDL Chol Calc ([facility]) 75 0 - 99 mg/dL 09/06/2022 11:06 PM [facility] T. Chol/HDL Ratio 3.3 0.0 - 4.4 ratio 09/06/2022 11:06 PM [facility] Comment: ?T. Chol/HDL Ratio ?Men ??Women ?1/2 Avg.Risk ??3.4 ?3.3 ?Avg.Risk ??5.0 ?4.4 ? 2X Avg.Risk ??9.6 ?7.1 ? 3X Avg.Risk 23.4 ?? 11.0 Blood BLOOD SPECIMEN / Unknown Venipuncture / Unknown 09/02/2022 7:35 AM TRAVEL SALES CONSULTANT 09/02/2022 7:38 AM TRAVEL SALES CONSULTANT Narrative [facility] - 09/06/2022 11:06 PM TRAVEL SALES CONSULTANT Performed at: ??01 - [facility] [address] ??[id number] In Home Sales Consultant: Ben Muñoz MD, Phone: ??[phone] Gita Marie MD SEND OUTS [facility] ([facility]) [address] [place] [address] * ANTI HCV (02/25/2022 12:11 PM CDT) HEPATITIS C ANTIBODY Non-React josefina Non-React josefina 02/25/2022 11:20 PM CDT [facility] Comment:Antibodies to HCV no t detected; does not exclude the possibility of exposure to HCV. Blood BLOOD SPECIMEN / Unknown Venipuncture / Unknown 02/25/2022 12:11 PM CDT 02/25/2022 12:13 PM CDT Kell GUERRERO [facility] [address] [place] [address], from Last 3 Months or Most Recently Relevant to Health Maintenance Advance Directives Documents on File Type Date Recorded Patient Coin Box Collector Expl anation Healthcare Directive 09/10/2022 023 Healthcare Directive 02/06/2010 HEALTH DIRECTIVE Healthcare Directive 03/21/2007 * Full Code (Latest Code Status on File) Date Activated Date Inactivated Comments 07/04/2023 6:13 AM 07/04/2023 2:27 PM Question Answer Comments Code Status Discussion: Unable to Assess Preferences, Provider to review later * Full Code Date Activated Date Inactivated Comments 04/28/2022 10:21 AM 04/28/2022 2:29 PM Question Answer Comments Code Status Discussion: Unable to Assess Preferences, Provider to review later * Full Code Date Activated Date Inactivated Comments 10/28/2020 10:04 AM 10/28/2020 2:19 PM Question Answer Comments Code Status Discussion: Discussed * Full Code Date Activated Date Inactivated Comments 10/17/2019 4:27 PM 10/23/2019 4:39 PM * Full Code Date Activated Date Inactivated Comments 09/27/2019 8:23 AM 09/27/2019 11:54 AM Care Teams German Instructor Relationship Specialty [place] [address] [place] [address] PCP - General Internal Medicine 06/12/23 Kar Soto MD Neurology 05/14/14 Olvin Vega MD [address] [facility] [address] [place] [address] Endocrinology 05/14/14 Bhaskar Page MD [address] [place] [address] [address] [place] [address] Gastroenterology 05/14/14 Major Chandler MBBS [address] [place] [address] Consulting Physician Cardiovascular Disease 02/05/19 Isak Nielson MD [address] [place] [address] Consulting Physician Cardiology - Electrophysiology 04/22/19 Jillian Daley NP [address] [place] [address] Nurse Practitioner Cardiology - Electrophysiology 07/31/19 Ania Avalos PsyD, LP [address] [facility] [address] [place] [address] Psychologist Psychology 10/03/19
--- OUTSIDE RECORDS SUMMARY | 2023-11-21 11:18 | XMS_ITS | Encounter Summary ---
Author Name Unknown Organization [facility] Address [address] [place] [address] Care Team Providers Care Specialty Food Products Supervisor Name Role Phone Elsewhere, Pcp Primary Care Provider Unavailabl e Reason for Visit * Outpatient (Routine) - Authorized Specialty Diagnoses / Procedures Referred By Contac t Referred To Contact Pain Medicine Diagnoses Pain Low Back Unspecified Pain Myofascial Courtney Sandhu APRN, C.N.P., M.S.N. [address] [place] [phone] [facility] Referral ID Status Reason Start Date Expiration Date V isits Requested Visits Authorized [id number] Authorized 07/24/2023 07/23/2024 1 1 Encounter Details Date Type Department Care Team (Late st Contact Info) Description 09/19/2023 9:00 AM GATE TECHNICIAN Telemedicine Division of Pain Medicine in [place], [place] [address] [place] [phone] Carey Hinkle APRN, CERAMIC DESIGNER, M.S. [address] [place] [phone] Pain Low Back Unspecified (Primary Dx); Pain Myofascial Social History Tobacco Use Types [...] week 09/27/2022 How often do you attend [facility] or evangelical services? Never 09/27/2022 Do you belong to any clubs o r organizations such as hoahaoism groups, unions, fraternal or athletic groups, or [...] and heating? Not hard at all 01/05/2023 [facility] Occupational Stress Questionnaire Answer Date [...] PM CDT documented as of this encounter Consult Notes * Carey Hinkle APRN, CNS, M.S. - 09/19/2023 9:00 AM CST PAIN MEDICINE CLINIC CONSULTATION NOTE - TELE HEALTH VISIT Consult conducted via real-time audio/video technology by BHANU Rainey APRN using technology arrangement from [facility] to the patient's home. SUBJECTIVE CHIEF COMPLAINT/REASON FOR VISIT Pain Clinic wellness assessment consultation related to self-care strategies in the context of chronic pain. HISTORY OF PRESENT ILLNESS Patient was seen at the request of Courtney Sandhu APRN, CNP, at the Pain Clinic for a virtual wellness assessment consultation. I reviewed the patient's medical history and interviewed the patient for 50 minutes. I would direct the interested reader to notes by Courtney Sandhu APRN, CNP for current concerns and recommendations dated July 24, 2023. Also refer to documentation by BHANU Lion APRN, DNP dated June 14, 2023. Since her history has been well documented in the medical records, it will not be repeated here. Laura Madrid is a very pleasant 53-year-old single female from [place], [place], being seen at the pain clinic for chronic low back pain. She has a history of post COVID syndrome, lumbosacral radiculopathy, peripheral neuropathy, low back pain, diabetes mellitus, and migraine headaches. She describes back pain becoming problematic over the past 2 years. She describes overall being healthy until she acquired COVID in October 2019 which led to numerous symptoms that became problematicin day-to-day functioning. 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 Because of her COVID symptoms she had difficulty performing at her previous level. Rather than lose her job, she put in her resignation. Since that time she has been living with her mother and brother. She has been on social security disability since 2022 due to a combination of post COVID symptoms and chronic pain. She has difficulty actively participating in day-to-day activities such as meal prep, laundry or cleaning. Standing makes her pain worse. Recently she lifted some groceries from the cart which flared up her pain symptoms. She has a heated recliner that can provide some relief for her. 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 She works a 4 hour shift on Monday and Monday. She does enjoy this job but also notices increased fatigue. She does describe some disruption with sleep primarily initial insomnia. At times she may sleep in her heated recliner. Due to poor sleep quality and pain, she has noticed changes with mood. She does see a mental healththerapist every 3 weeks. She has found this to be very helpful. The purpose of today's visit is to discuss evidence based pain management strategies that may be useful for the management of chronic pain. She is very receptive to this discussion. Current Outpatient Medications Medication Sig Dispense Refill acetaminophen (TYLENOL) 500 mg tablet Take 2 tablets by mouth as needed. atorvastatin (LIPITOR) 40 mg tablet Take 40 mg by mouth at bedtime. BD Filter Needle-5 Micron 19 x 1 1/2 needle as needed. BD PrecisionGlide 25 gauge x 1 needle as needed. blood sugar diagnostic strips (Blood Glucose Test [...] Take 4 mg by mouth as needed. dihydroergotamine (DHE) 1 mg/mL injection Inject 0.5-1 mg intramuscularly as needed. esomeprazole (NexIUM) [address] capsule daily. insulin lispro 100 unit/mL injection 3 (three) times a day. insulin syringe-needle U-100 0.3 mL 31 gauge x 5/16 syringe daily. ketorolac (TORADOL) 60 mg/2 mL intramuscular injection lancets Test 4 times per day. Lantus [...] tablet Take 25 mg by mouth daily. Monoject Regular Luer 3 mL syringe as needed. nystatin (NYSTOP) 100,000 unit/gram powder Apply 1 strip topically as needed. ondansetron (ZOFRAN) 4 mg tablet as needed. oxyCODONE-acetaminophen (PERCOCET) 5-325 mg per tablet Take 1 tablet by mouth as needed. polyethylene glycol (Miralax) 17 gram/dose oral powder Take 17 g by mouth daily. pramipexole (MIRAPEX) 0.25 mg tablet Take 3-4 Tablets (0.75-1 mg) by mouth at bedtime. pregabalin (LYRICA) 300 mg capsule Take 1 capsule (300 mg total) by mouth 2 (two) times a day. 60 capsule 3 scopolamine base (TRANSDERM SCOP) 1 mg over [address] 1 patch on the skin every third day as needed. sodium fluoride-pot nitrate 1.1-5 % paste USE DOCTOR INSTRUCTED tiZANidine (ZANAFLEX) 4 mg tablet Take 1 tablet (4 mg total) by mouth at bedtime. 90 tablet 3 Trulicity 4.5 mg/0.5 mL injection Inject 4.5 mg under the skin once a week. UltiCare Pen Needle 31 gauge x 5/16 needle USE FOR ADMINISTERING INSULIN AT HOME Current Facility-Administered Medications Medication Dose Route Frequency Provider Last Rate Last Admin lactated ringers 20 mL/hr intravenous Continuous Robert Gibbons M.D. 20 mL/hr at 12/02/22 0814 20 mL/hr at 12/02/22 0814 lactated ringers 20 mL/hr intravenous Continuous Robert Gibbons M.D. Stopped at 06/14/23 1500 Allergies: Cefprozil, Iodine, Latex, Erythromycin, Levofloxacin, Iodinated contrast media, and Isosorbide mononitrate The following portions of the patient's history were reviewed and updated as appropriate: allergies, current medications, family history, medical history, social history, surgical history and problemlist. OBJECTIVE SYSTEMS REVIEW PAIN SCALE Patient's pain was reported using the 0-10 numeric pain scale. Patient rates low back pain at 3/10. MENTAL STATUS EXAM Patient was fully alert and oriented. Mood is euthymic, affect is congruent. Patient is easily engaged in conversation. There is no suicidal or homicidal ideation. Memory and cognition presented as intact. Thought form and content are within normal limits. Level of consciousness is normal. The patient is cooperative, and reliability is intact. Patient presents as having high motivation for utilizing self-management strategies. Plan ASSESSMENT / PLAN Diagnosis: #1 Pain low back unspecified #2 Pain myofascial Laura Madrid is a very pleasant 53-year-old single female from [place], [place], being seen at the pain clinic for chronic low back pain. She has a history of post COVID syndrome, lumbosacral radiculopathy, peripheral neuropathy, low back pain, diabetes mellitus, and migraine headaches. She reports history of chronic pain disrupting overall function and quality of life including physical abilities, disruption with sleep, negative effect on mood and interference with social interactions and leisure activities. We discussed pain catastrophizing which includes rumination, magnification and feelings of helplessness. She has limited understanding of self management techniques to man age chronic pain, but is very open to this discussion. The purpose of today's visit is to discuss evidence based pain management strategies such as cognitive behavioral therapy, stress management, the importance of daily structure and routine including moderation and relaxation. We did review the technique of relax diaphragmatic breathing during this visit. She is interested in additional educational suggestions available on line Additional websites for online learning: Understanding Pain in Less than 5 minutes https://www.Splotherube.com/watch?v=C_3phB93rvI Understanding Pain: Elise stops his opioids https://www.youFactory Logicube.com/watch?v=BK7klVMYgPR Elise Chooses https://www.youFactory Logicube.com/watch?v=oZty7jC5wAR https://www.retrainpain.org/scottish Taming the Beast Dr. Yesenia Frazier https://www.Splotherube.com/watch?v=goLnlHzt2R6 Understanding Central Sensitization Chapter 1 DG1897-17 https://www.[facility].org/patient-education?VID=vid-27686557 Understanding Central Sensitization Chapter 2 Calming Central Sensitization GT5506-60 https://www.[facility].org/patient-education?VID=vid-47066009 Dr. Kj Vanegas Central Sensitization https://youFactory Logicu.be/zXTwvjYH8WC https://askmayoexpert.[facility].org/document/etcahqi-objwvlzlxeoaw-kljaf-strajosie paulinoqdek-we-kweg-xnt-zfcx-n-epwvaw-zuqvqdw-gb-life/doc-25854062?request_lang=en Neuroplasticity made simple: Thierry Pena, PhD researcher - Midfin Systemsube https://www.Splotherube.com/watch?v=hW52lSBZFsY http://www.Clinicbook/drw/u/OXG29338/skoem-anmottgpv-lxxnvbady.html. Chronic Pain: Take Steps to Regain Your Life Bx5993 This link will provide additional video resources ???These video links are for patient and family use only. Do not post on websites or share publicly.?? https://www.[facility].org/patient-education/?PLID=1_s7i189u8 (mindful movements-lina chi qigong) https://www.[facility].org/patient-education?cp=JZ0126-26 (mindful movements- gentle yoga) https://www.[facility].org/patient-education?gg=XE2611-95 (paced breathing meditation) Relaxation Relaxed Breathing (Diaphragmatic) QP5109 https://[facility] hospitalorms.[place].[facility]/cr3628-gy0581/kq3990.pdf Calm and Energize: A Meditation With Your Breath (https://www.Splotherube.com/watch?v=RYJXmF8RLm2 Rhythm: A Meditation With a Word (https://www.Splotherube.com/watch?v=FnlI-e4uxHw These instructions by Dr. Caleb Berkowitz offer breathing exercises that may be useful for training: Three Breathing Exercises http://www.Clinicbook/drw/u/MGX37719/hefin-oplewgubi-nejrgqlxm.html Dr. Caleb Berkowitz breathing exercise Sleep in 60 seconds https://www.Splotherube.com/watch?v=is8K13XEceb Relaxation For Your Mind and Body, EZ5731: https://www.[facility].org/patient-education?PLID=0_kwe3994z Living in the Moment, HD7783: https://www.[facility].org/patient-education?VID=vid-33963446 Help in Stressful Times, CQ3015: https://www.[facility].org/patient-education?PLID=0_23sbxauq Mindful Movements: Gentle Yoga, LK1972-02: https://www.[facility].org/patient-education?VID=VID-52642583 Relaxation Passive Muscle: https://www.[facility].org/patient-education?VID=vid-80445554 Breathing Meditationhttps://www.[facility].org/patient-education?hf=OK8908-73 Abdelrahman Talks * Quan Kiel on happy brain: how to overcome our neural predispositions to suffering https://www.Splotherube.com/watch?v=KZIGekgoaz4&isfi=SSZIDcgULU141fH49Pnbpb45Qtc4f11 h4R Sleep resources: National Sleep Foundation: https://www.sleepfoundation.org/ Good Habits for Better Sleep FP5855-69 https://[facility] hospital[facility].[place].[facility]/bo3846-ss3358/gx1481-84.pdf Self-Talk for Better Sleep GW1700 https://mcforms.[place].edu/aw4418-ce9588/oc1632.pdf How to get the Healthy Sleep you Need KR3059-35 https://mcforms.[place].edu/my4706-pg4496/dx7693-96.pdf Relaxation Plan for Better Sleep RC5871-01 https://mcforms.[place].edu/bu1645-za4097/qu6113-82.pdf Insomnia CY2205-84 https://[facility] hospitalorms.[place].edu/es3914-to1067/kf6369-33.pdf Improving Sleep: https://www.[facility].org/patient-education?VID=vid-67509422 Smart device apps: Ygpxlb2Jwsax:Breathing pacer: My Calm Beat BellyBio Interactive Breathing MeMoves: Calming movement activities Supplemental reading list: Back in Control by Dr. Jai Owen www.backincontrol.ChangeMob A Calm Brain by Dr. Angelic Pedro Timeless Healing by Dr. Jude Souza The [facility] Handbook for Happiness: A Four-Step Plan for Resilient Living by Dr. Quan Dyson. No More Sleepless Nights by Kar Castellanos PhD Together we discussed the following plan: 1. Review online materials provided today and highlight questions to be addressed 2. Continue to meet with her mental health therapist as scheduled every 3 weeks,, using cognitive behavioral therapy to assist in challenging problem thoughts. 3. Reviewed the technique of relaxed diaphragmatic breathing with the recommendation of daily practice. 4. Structure daily movement using concept of Moderation. Observe Midfin Systemsube video- 23 and 1/2 hours: What is the single best thing we can do for our health? Currently she is working with physical therapist weekly at the [facility]. https://www.Loot!.com/watch?v=oXtYkC0NDQq#action=share 5. We discussed [facility] 3 weeks outpatient program andthe pain management strategies taught in this Program.https://www.[facility].org/departments-centers /hgya-myxbzhoxtcmpcq-mbmvhi/overview If she has difficulty making changes on her own, this type of program could be beneficial. We also discussed a similar program in the [facility], the [facility]. 6. I have provided my contact information and will be happy to have further visits or answer questions via portal. It was a pleasure to visit with Ms. Madrid. Thank you for the referral. Patient education: The patient was ready to learn and had no apparent learning barriers. Their learning preferences includes listening. The diagnosis and treatment plans were explained and the patient expressed understanding of the content. Total time spent with patient by video: 50 minutes. I personally spent a total of 10 minutes in beh-wpsi-gp-face time performing a review of the recordand/or discussion with the patient/caregiver as described above. TECHNICIAN documented in this encounter Plan of Treatment Upcoming Encounters Date Type Department Care Team (Late st Contact Info) Description 12/22/2023 1:00 PM CDT Virtual Visit Division of Pain Medicine in [place], [place] [address] [place] [address] Amelia Salgado APRN, CERAMIC DESIGNER, D.N.P. [address] [place] [phone] documented as of this encounter Visit Diagnoses Diagnosis Pain Low Back Unspecified- Primary Pain Myofascial documented in this encounter Care Teams Specialty Food Products Supervisor Relationship Specialty Start Date End Date Elsewhere, Pcp PCP - General Internal Medicine 09/30/22 documented as of this encounter
--- OUTSIDE RECORDS SUMMARY | 2023-11-21 11:18 | XMS_ITS | Encounter Summary ---
Author Name Unknown Organization [facility] Address [address] [place] [address] Care Team Providers Care Radiology Resident Name Role Phone Elsewhere, Pcp Primary Care Provider Unavailabl e Encounter Details Date Type Department Care Team (Late st Contact Info) Description 10/19/2023 Clinical Communication Division of Pain Medicine in [place], [place] [address] [place] [phone] Amelia Salgado APRN, STUD MASTER/MISTRESS, D.N.P. [address] [place] [address] Social History Tobacco Use Types Packs/Day Years [...] often do you attend chur ch or jainism services? Never 09/27/2022 Do you belong to any clubs o r organizations such as religion groups, unions, [employer] or athletic groups, or school groups? No [...] and heating? Not hard at all 01/05/2023 [facility] - Occupational [...] Virtual Visit Division of Pain Medicine in [place], [place] [address] [place] [phone] Amelia Salgado, DANYEL, STUD MASTER/MISTRESS, D.N.P. [address] [place] [phone] documented as of this encounter Visit Diagnoses Not on filedocumented in this encounter Care Teams Radiology Resident Relationship Specialty Start Date End Date Elsewhere, Pcp PCP - General Internal Medicine 09/30/22 documented as of this encounter
--- OUTSIDE RECORDS SUMMARY | 2023-11-21 11:18 | XMS_ITS | Encounter Summary ---
Author Name Unknown Organization [facility] Address [address] [place] [id number] Care Team Providers Care Beaver Trapper Name Role Phone Elsewhere, Pcp Primary Care Provider Unavailabl e Reason for Referral * Outpatient (Routine) - Authorized Specialty Diagnoses / Procedures Referred By Contac t Referred To Contact Pain Medicine Amelia Salgado APRN, CNS, D.N.P. [address] [place] [phone] [facility] Referral ID Status Reason Start Date Expiration Date V isits Requested Visits Authorized [id number] Authorized 08/22/2023 02/20/2025 1 1 Scheduling Instructions On a day Dr. Gibbons is supervising E MANAGER Encounter Details Date Type Department Care Team (Late st Contact Info) Description 08/22/2023 Orders Only Division of Pain Medicine in [place], [place] [address] [place] [phone] Amelia Salgado APRN, CNS, D.N.P. [address] [place] [phone] Social History Tobacco Use Types Packs/Day Years [...] How often do you attend chur or church services? Never 09/27/2022 Do you belong to any clubs o r organizations such as holiness groups, unions, fraternal or athletic groups, or [...] heating? Not hard at all 01/05/2023 [facility] - Occupational Stress [...] Virtual Visit Division of Pain Medicine in [place], [place] [address] [place] [address] Amelia Salgado APRN, MEDIA SERVICES DIRECTOR, D.N.P. [address] [place] [address] Scheduled Referrals Name Type Priority Associated Diagnoses Orde r Schedule Pain Medicine office visit (clinic) Outpatient Referral Routine Expected: 12/15/2023, Expires: 11/19/2024 documented as of this encounter Visit Diagnoses Not on filedocumented in this encounter Care Teams Beaver Trapper Relationship Specialty Start Date End Date Elsewhere, Pcp PCP - General Internal Medicine 09/30/22 documented as of this encounter
--- OUTSIDE RECORDS SUMMARY | 2023-11-21 11:18 | XMS_ITS | Patient Health Record ---
Author Name Unknown Organization [facility] Address [address] [place] [address] [address] [place] [address] Care Team Providers Care Bingo Clerk Name Role Phone Gita Marie Primary Care Provider UnavailFabrizio Kidd Unavailable [phone] Raymond DOTYO DEMOLITION CRANE OPERATOR, Mandi Unavailable Unavaila ble ALLERGIES Allergen (clinical drug ingredient) Drug/Non Drug Allergy documented on EMR Reaction Allergy Type Onset Date Status Imdur rash Drug Allergy Active Latex Latex hives Allergy Active REASON FOR REFERRAL No Information MEDICATIONS Medication SIG (Take, Route, Frequency, Duration) Notes Start Date End Date Status Ondansetron HCl 4 MG 1 tablet Orally Onc e a day Active Percocet 5-325 MG 1 tablet as needed Orally every 6 hrs Active Cyproheptadine HCl 4 MG 1 tablet Orally Twice a day Active Pramipexole Dihydrochloride 0.25 MG 4 tablet Orally Once a day at bedtime Active Nystatin 679201 UNIT/GM 1 application Externally Twice a day [...] chronic pain (G89.29) Active confirmed Chronic pain (33901029) Problem Spondylosis without myelopathy or radiculopathy, lumbosacral region (M47.817) Active confirmed Lumbosacral spondylosis without myelopathy (66874251) Problem Radiculopathy, lumbosacral region (M54.17) Active confirmed Lumbosacral radiculopathy (1533318) Problem Low back pain, unspecified (M54.50) Active confirmed Low back pain (344698226) PLAN OF TREATMENT No Information Insurance Providers Payer Name Payer Address Payer Phone Subscriber Number Group Number Insured Name Patient Relationship to Insured Coverage Start Date Coverage End Date [employer] [place] PMAP [address] [address] [place] [address] [id number] [facility] Laura Madrid Self - patient is the insured [facility] [address] [address] [place], [place] [id number] Laura Madrid Self - patient is the insured MEDICAL (GENERAL) HISTORY Medical History History ICD Code Diabetes Depression Thyroid problems Arthritis Hypertension Migraine Cancer Acid reflux Blood clots Surgical History Surgery Date(Month/Year) Cholecystectomy 2000 Thyroidectomy 2001 cyst removal from left maxillary sinus 2 002 temporal artery biopsy Right Eyebrow/eyelid lift coronary angiogram 2006 Left and Right ankle tendon repair 2002 Left heel surgery 2019 hysterectomy 2015 Esophageal stricture
[2023-11-21] MEDS: OXYCODONE (CR) 10 MG TAB.ER.12H PO (11:50)
[2023-11-21] MEDS: CELECOXIB 200 MG CAPSULE PO (11:50)
[2023-11-21] MEDS: ACETAMINOPHEN 500 MG TABLET 1000 MG PO ×2 (11:50→17:10)
[2023-11-21] MEDS: LACTATED RINGERS 1000 ML 1,000 ML 100 ML IV ×2 (11:50→12:34)
[2023-11-21] MEDS: MIDAZOLAM HCL 1 MG/ML inj IVP (11:58)
[2023-11-21] MEDS: fentaNYL 100 MCG/2 ML inj IVP (11:58)
--- NOTE | 2023-11-21 12:04 | P.NB_ITS ---
Nerve Block Nerve Block Time Seen by Provider: 12:00 Date Seen: 11/21/23 Type of block requested by surgeon for post-operative analgesia: adductor canal Side: left Time out performed: Yes Verification of patient name: Yes Verification of date of : Yes Site marking: site marked Name of person performing procedure: Praveen Continuous monitoring Was continuous monitoring of O2 sat, B/P, environmental monitoring specialist, recorded every 15 minutes?: Yes Procedure Checklist: sterile prep, needles and gloves Ultrasound guided. Images saved: Yes Medications given in 5ml increments after negative aspiration: Ropivicaine %: 0.5 mL: 20 Needle gauge: 20 Decadron (mg): 10 Precedex (mcg): 25 Patient tolerated procedure well: Yes Additional comments: Needle noted adjacent to nerve Block Charges Block Charge (with Pro Fee): Femoral Nerve Use of Ultrasound Machine for Block: Yes- US Guidance/pain block
--- NOTE | 2023-11-21 12:04 | W.PM.NB ---
Nerve Block Nerve Block Time Seen by Provider: 12:00 Date Seen: 11/21/23 Type of block requested by surgeon for post-operative analgesia: geniculars Side: left Time out performed: Yes Verification of patient name: Yes Verification of date of : Yes Site marking: site marked Name of person performing procedure: Praveen Continuous monitoring Was continuous monitoring of O2 sat, B/P, director of cardiac rehabilitation, recorded every 15 minutes?: Yes Procedure Checklist: sterile prep, needles and gloves Medications given in 5ml increments after negative aspiration: Ropivicaine %: 0.5 mL: 9 Needle gauge: 25 Patient tolerated procedure well: Yes Block Charges Block Charge (with Pro Fee): Genicular Nerve Block Use of Ultrasound Machine for Block: No
--- NOTE | 2023-11-21 12:05 | W.ANESCHARGE ---
Anesthesia Charges Start Date/Time Anesthesia Start Date: 11/21/23 Anesthesia Start Time: 12:07 Stop Date/Time Anesthesia Stop Date: 11/21/23 Anesthesia Stop Time: 15:20
--- NOTE | 2023-11-21 12:16 | SUR.PREOP ---
TIME?OUT:?1158 PT/RN/MDA?VERIFICATION?OF?SURGICAL?SITE Left Knee,?PROCEDURE Nerve bLock,?AND?CONSENT OBTAINED?PRIOR?TO?INVASIVE?PROCEDURE.
[2023-11-21] MEDS: CEFAZOLIN 2 GM INJ IVP (12:31)
[2023-11-21] MEDS: TRANEXAMIC ACID 100 MG/ML INJ 1000 MG IV (12:32)
--- NOTE | 2023-11-21 14:05 | XR_ITS ---
Patient: KYLIE TOMLINSON Facility:?[facility] Patient ID:?[id number] Site Patient ID:?[id number]. Site :?[id number] Study:?XRay-Extremity Left KNEE 2 VIEWS-11/21/2023 4:33:46 PM Ordering Physician:JESICA Final Report: INDICATION: Postop left knee. TECHNIQUE: AP and cross-table lateral views of the left knee. COMPARISON: 11/13/2023 FINDINGS: Immediate postop changes of left total knee arthroplasty. Prosthetic components well-seated and aligned. IMPRESSION: Immediate postop changes of left total knee arthroplasty without evidence of complication. Dictated by Chris Farias MD @ 11/22/2023 3:10:20 PM Signed by:?Chris Farias MD @11/22/2023 3:10:20 PM (Electronic Signature)
--- NOTE | 2023-11-21 14:19 | P.ORPRC_ITS ---
Procedure Note Date of procedure: 11/21/23 Procedure: PREOPERATIVE DIAGNOSIS: Left knee osteoarthritis POSTOPERATIVE DIAGNOSIS: Left knee osteoarthritis NAME OF OPERATION: Left total knee arthroplasty SURGEON: Sven Owusu MD REPORTING COORDINATOR: Leif Rosales OPA ANESTHESIA: Spinal ESTIMATED BLOOD LOSS: 10 mL COMPLICATIONS: None SPECIMENS: None DRAINS: None PREOPERATIVE ANTIBIOTICS: Ancef 3 grams, antibiotic impregnated cement IMPLANTS: 1. J&J Attune revision CRS #6 posterior stabilized femur, with a 14 mm x 50 mm cemented stem 2. #6 Attune revision CRS fixed-bearing tibia, with a 14 mm x 50 mm cemented stem 3. #6 posterior stabilized, 5 mm fixed-bearing polyethylene 4. 38 patella INDICATIONS: The patient is a 53-year-old with a longstanding history of severe, unrelenting left knee pain secondary to end-stage (grade IV) left knee osteoarthritis. Despite appropriate nonoperative management, including activity modification, anti-inflammatories, ipak-xna-sgjfxyb pain medication, bracing, physical therapy, and injections they continue to have pain and disability. Operative intervention was offered. The risks, benefits and expected outcomes were discussed in detail. These included but were not limited to: Infection, bleeding, injury to blood vessel or nerve, venous thromboembolism. All questions were answered to their satisfaction. Use of an visitor information assistant was necessary throughout the case for patient positioning and safety, soft tissue retraction, and closure. A modifier 22 should be added to this case. The patient has class 3 obesity with a weight of 178 kg and a BMI 58. There was a 60 mm layer of adipose over the extensor mechanism. These factors more than doubled the time typically required to complete the case. Additionally, stemmed components were used to reduce the risk of aseptic loosening in this sized patient. This significantly added more cost to the case as well. PROCEDURE: Spinal anesthesia was administered. The patient was placed supine on the operating table. The visitor information assistant made sure the patient was positioned appropriately. The lower extremity was prepped and draped in the usual sterile fashion. The limb was exsanguinated with the Thony bandage. The pneumatic tourniquet was inflated to 300 mmHg. A standard anterior incision was made with the knee in flexion. Subcutaneous dissection was sharply taken through fascial layer #1. Full-thickness medial and lateral flaps were elevated. The visitor information assistant retracted the soft tissues and protected them throughout the case. A standard subvastus approach was made. The patella was everted. The infrapatellar fat pad was debrided. The menisci and cruciate ligaments were sharply d?brided. Marginal osteophytes were d?brided with the rongeur. The drill was used to penetrate the femoral canal. The canal was aspirated and irrigated with pulse lavage. The intramedullary femoral guide was placed for a 5-degree valgus cut, removing 10 mm off the distal femur. The saw was used to make the cut. Whitesides line and the trans epicondylar axis were marked. The femoral sizing guide was pinned onto the distal femur. Three degrees of external rotation nicely parallels the transepicondylar axis. Pins were placed for posterior referencing. The four-in-one cutting guide was pinned onto the distal femur. The anterior, posterior, and chamfer cuts were made. The visitor information assistant protected the collateral ligaments. The revision trial was placed. The box cuts were made. The drill was used x2. The stemmed, boxed trial was placed and was an excellent fit. Attention was then turned to the proximal tibia. The extramedullary tibial guide was placed for a neutral varus/valgus cut with 7 degrees of posterior slope, removing 2 mm based off the medial tibial surface. The visitor information assistant protected the collateral ligaments and the neurovascular bundle. The saw was used to make the cut. Trial components were placed. The knee was nicely balanced in both flexion and extension. The trial components were removed. The tray was placed in appropriate rotation, parallel to our tibial cutting pins. It was pinned by the visitor information assistant and the drill x2 was used. The stemmed tibial trial was placed. The punch was used. The tray was removed. The punch was used again. Attention was then turned to the patella. [place] patellar thickness was 24 mm. The lobster claw resection guide was used with the 7.5 mm danielle. The saw was used to make the cut. Remaining patellar thickness was 17 mm. We elected to freehand the cut to remove another 2 mm, ending at 15 mm. Drill holes were made by the visitor information assistant. The trial was placed and was an excellent fit. Cancellous surfaces were irrigated with pulse lavage and thoroughly dried by the visitor information assistant. We cemented the tibial component, then the femoral component. We impacted the 5 mm polyethylene onto the tibial tray. The knee was brought into full extension. We then cemented the patellar component. Excessive cement was removed. The cement was allowed to harden. The knee was taken through a range of motion and was found to be nicely balanced in both flexion and extension. The patella tracks centrally. The visitor information assistant did a three minute dilute Betadine solution soak. The visitor information assistant irrigated the wound with 3 liters of normal saline via pulse lavage. The visitor information assistant reapproximated the extensor mechanism with #1 Vicryl in an interrupted grjfvk-mq-bytrf fashion. The visitor information assistant then ran the extensor mechanism with a #1 PDO Stratafix. The visitor information assistant closed the subcutaneous tissues with a 3-0 Stratafix and the skin with a running 3-0 Stratafix in a subcuticular fashion. Glue was used to seal the skin. The visitor information assistant placed a dry dressing. Sponge and needle counts were correct x2. The patient tolerated the procedure well. There were no apparent complications. They were carefully transferred to the hospital bed and taken to the postanesthesia care unit in satisfactory condition. PLAN: The patient will be mobilized with physical therapy. Given the patient's history of DVT and PE, Eliquis will be used for DVT prophylaxis. They will be discharged to home once medically appropriate.
--- NOTE | 2023-11-21 15:20 | W.ANESCHARGE ---
Anesthesia Charges Start Date/Time Anesthesia Start Date: 11/21/23 Anesthesia Start Time: 12:07 Stop Date/Time Anesthesia Stop Date: 11/21/23 Anesthesia Stop Time: 15:20
--- NOTE | 2023-11-21 15:56 | SUR.PHASEI ---
patient met discharge criteria per anesthesia
[2023-11-21] MEDS: HYDROmorphone 0.5 mg/0.5 ml inj IVP ×2 (17:09→18:19)
--- NOTE | 2023-11-21 17:25 | PM.IMCN1 ---
Date of Consult Patient: Rosalie Patient Consult date: 11/21/23 Requesting Physician: Orthopedics Primary Care Provider: Not a Local Provider: Dr. Na Estes, [facility] [place]. Consult Narrative Reason for consult: Post op LTKA medical support Narrative: Laura Madrid is a 53 year old woman undergoes an elective left total knee arthroplasty today with Dr. Svne Owusu. Reportedly there were no perioperative complications. Surgery undertaken with local block. Did not receive general anesthesia. Since arriving to the floor the pain has been intensifying in surgical knee. Review of Systems Status of ROS: Reports: 10 or more systems reviewed and unremarkable except as noted in History and below Narrative: Denies recent illness, fever, rigors, diaphoresis. Denies cough, dyspnea at rest, paroxysmal nocturnal dyspnea, orthopnea. Denies chest heaviness, pressure, tightness, or pain. Denies syncope or near-syncope. Denies nausea vomiting. Denies dysuria, urgency, frequency, hematuria. Two days ago completed a 5 day course of ciprofloxacin for recurrent UTI. Scheduled to repeat a urine culture on 11/27/2023 in outpatient setting. Is receiving perioperative cefazolin IV antibiotic in hospital at this time. Denies diarrhea or constipation. No recent trauma or injury. No recent travel. [facility] Medical History Tobacco use disorder ?F17.200 - Nicotine dependence, unspecified, uncomplicated (ICD-10) Morbid obesity ?E66.01 - Morbid (severe) obesity due to excess calories (ICD-10) Recurrent urinary tract infection ?N39.0 - Urinary tract infection, site not specified (ICD-10) Depression ?F32.A - Depression, unspecified (ICD-10) SVT (supraventricular tachycardia) ?I47.10 - Supraventricular tachycardia, unspecified (ICD-10) Hypokalemia ?E87.6 - Hypokalemia (ICD-10) Hx of coronary angiogram ?Z98.890 - Other specified postprocedural states (ICD-10) COVID-19 long hauler ?U09.9 - Post COVID-19 condition, unspecified (ICD-10) Esophageal stricture ?K22.2 - Esophageal obstruction (ICD-10) Paroxysmal SVT (supraventricular tachycardia) ?I47.10 - Supraventricular tachycardia, unspecified (ICD-10) Uncontrolled type 2 diabetes mellitus DVT (deep venous thrombosis) ?I82.409 - Acute embolism and thrombosis of unspecified deep veins of unspecified lower extremity (ICD-10) Pulmonary embolism ?I26.99 - Other pulmonary embolism without acute cor pulmonale (ICD-10) Hyperlipidemia ?E78.5 - Hyperlipidemia, unspecified (ICD-10) Hypertension ?I10 - Essential (primary) hypertension (ICD-10) Gastroparesis ?K31.84 - Gastroparesis (ICD-10) Papillary thyroid carcinoma ?C73 - Malignant neoplasm of thyroid gland (ICD-10) GERD (gastroesophageal reflux disease) ?K21.9 - Gastro-esophageal reflux disease without esophagitis (ICD-10) Surgical History (Updated 11/21/23 @ 17:39 by Sancho Good MD) History of phacoemulsification of cataract of both eyes with intraocular lens implantation ?Z98.41 - Cataract extraction status, right eye (ICD-10) ?Z98.42 - Cataract extraction status, left eye (ICD-10) ?Z96.1 - Presence of intraocular lens (ICD-10) Hx of thyroidectomy ?E89.0 - Postprocedural hypothyroidism (ICD-10) Hx of hysterectomy ?Z90.710 - Acquired absence of both cervix and uterus (ICD-10) Hx of hemorrhoidectomy ?Z98.890 - Other specified postprocedural states (ICD-10) Hx of cholecystectomy ?Z90.49 - Acquired absence of other specified parts of digestive tract (ICD-10) Family History Father Diabetes Cancer Depression Heart disease Sister Diabetes Depression High cholesterol High blood pressure Seizure disorder Paternal Grandfather Coronary artery disease Brother High blood pressure Mother High blood pressure Paternal Grandmother Thyroid disease Social History What is your current living situation?: I presently have a place to live Smoking Status: Current some day smoker What tobacco products do you use: cigarettes Do you use any of these nicotine containing products: None How often do you have a drink containing alcohol: never AUDIT-C Alcohol total score: 0 Non-prescribed substance use: denies use Caffeine: No How often does anyone, including family, friends and others, physically hurt you: never How often does anyone, including family, friends and others, insult or talk down to you: never How often does anyone, including family, friends and others, threaten you with harm: never How often does anyone, including family, friends and others, scream or curse at you: never Are you using contraception or practicing any form of control: No Meds Home Medications and Allergies Home Medications Medication Instructions Recorded Confirmed Type atorvastatin 40 mg tablet 40 mg PO HS 07/31/23 11/21/23 History citalopram 20 mg tablet 30 mg PO DAILY 07/31/23 11/21/23 History cyclobenzaprine 10 mg tablet 10 mg PO TID PRN muscle spasm 07/31/23 11/21/23 History dihydroergotamine 1 mg/mL 1 mg IM DAILY PRN 07/31/23 11/21/23 History injection solution esomeprazole magnesium 40 mg 40 mg PO DAILY 07/31/23 11/21/23 History capsule,delayed release insulin glargine 100 unit/mL (3 80 unit subcut BID 07/31/23 11/21/23 History mL) subcutaneous pen (Lantus Solostar U-100 Insulin) insulin lispro 100 unit/mL 40 unit subcut TIDWM 07/31/23 11/21/23 History subcutaneous pen (Humalog KwikPen (U-100) Insulin) levothyroxine 200 mcg tablet 200 mcg PO QAM 07/31/23 11/21/23 History lisinopril 5 mg tablet 5 mg PO DAILY 07/31/23 11/21/23 History loratadine-pseudoephedrine ER 10 1 tab PO DAILY 07/31/23 11/21/23 History mg-240 mg tablet,extended [id number] (Loratadine-D) metoprolol succinate 25 mg 25 mg PO DAILY 07/31/23 11/21/23 History tablet,extended release 24 hr nystatin 100,000 unit/gram topical 1 applic topical TID PRN 07/31/23 11/21/23 History powder pramipexole 0.25 mg tablet 0.75 - 1 mg PO HS 07/31/23 11/21/23 History pregabalin 300 mg capsule 300 mg PO BID 07/31/23 11/21/23 History tizanidine 4 mg tablet 4 mg PO HS 07/31/23 11/21/23 History blood sugar diagnostic (Contour #10 ea 11/13/23 11/13/23 History Next Test Strips) ketorolac 60 mg/2 mL intramuscular 30 - 60 mg IM DAILY PRN 11/13/23 11/21/23 History solution ondansetron HCl 4 mg tablet 4 mg PO Q8H PRN nausea/vomiting 11/13/23 11/21/23 History acetaminophen 500 mg tablet 1,000 mg PO Q6H PRN 11/20/23 11/21/23 History cyproheptadine 4 mg tablet 4 mg PO QHS 11/20/23 11/21/23 History dulaglutide 4.5 mg/0.5 mL 4.5 mg subcut .once weekly 11/20/23 11/21/23 History subcutaneous pen injector (Trulicity) sodium fluoride 1.1 %-potassium 1 applic dental HS 11/21/23 11/21/23 History nitrate 5 % dental paste (PreviDent 5000 Enamel Protect) Allergies Allergy/AdvReac Type Severity Reaction Status Date / Time cefprozil [From Cefzil] Allergy Severe Hives Verified 11/21/23 11:37 isosorbide [From Imdur] Allergy Severe Rash Verified 11/21/23 11:37 latex Allergy Severe Hives Verified 11/21/23 11:37 levofloxacin Allergy Severe Diarrhea Verified 11/21/23 11:37 erythromycin base Allergy Verified 11/21/23 11:37 Iodinated Contrast Media Allergy Verified 11/21/23 11:37 Exam Narrative: Exam Narrative: I examine her in her hospital room postoperative. Appears comfortable in no acute distress. Indicates she starting to have a surge in the pain in her left knee. Vision and hearing are normal. Alert and oriented to self, place, time, situation. Articulate and cooperative. Conjugate gaze, pupils equally round and reactive to light and accommodation, no icterus or conjunctival injection. Dentition in fair repair. Tight oral aperture. Moist buccal mucosa. Midline nasal septum. Neck is supple. Neck is full. Midline trachea. No head and neck lymphadenopathy. Lungs are clear to auscultation without wheezing, rhonchi, or rales. Chest wall excursions are full. No CVA tenderness. Heart tones with regular rhythm, normal S1-S2, without murmur, gallop, or rub. PMI not laterally displaced. Abdomen with active bowel sounds, soft, nontender. Moving all 4 extremities. Const: Vital Signs, click to edit/add: Vital Signs - 24 hr 11/21/23 11:47 11/21/23 11:58 11/21/23 12:00 Temperature 98.2 F Pulse Rate 75 70 72 Respiratory Rate 16 16 16 Blood Pressure 118/60 119/68 125/69 Pulse Oximetry 97 97 97 Oxygen Delivery Me thod Room Air Nasal Cannula Nasal Cannula Oxygen Flow Rate 2 2 11/21/23 15:16 11/21/23 15:20 11/21/23 15:25 Temperature 97.1 F L 97.1 F L 97.1 F L Pulse Rate 75 76 75 Respiratory Rate 22 14 15 Blood Pressure 127/79 127/75 127/78 Pulse Oximetry 95 96 96 Oxygen Delivery Me thod Room Air Room Air Room Air Oxygen Flow Rate 11/21/23 15:30 11/21/23 15:35 11/21/23 15:40 Temperature 97.1 F L 97.1 F L 97.1 F L Pulse Rate 74 73 73 Respiratory Rate 18 18 16 Blood Pressure 138/81 131/82 132/78 Pulse Oximetry 96 97 95 Oxygen Delivery Me thod Room Air Room Air Room Air Oxygen Flow Rate 11/21/23 15:45 11/21/23 15:49 Temperature 97.9 F 96.5 F L Pulse Rate 73 74 Respiratory Rate 17 16 Blood Pressure 133/79 134/65 Pulse Oximetry 95 95 Oxygen Delivery Me thod Room Air Room Air Oxygen Flow Rate Assessment and Plan Assessment and plan (1) Osteoarthritis of left knee: Status: Acute (2) Status post left knee replacement: Problem comment: On 11/21/2023, [facility], Dr. Sven Owusu Status: Acute (3) Recurrent urinary tract infection: Problem comment: - Completed 5-day course of ciprofloxacin on Monday11/19/2023, her 4th course of treatment for UTI this calendar year. Most recent culture obtained on 11/15/2023 grew out greater than 100,000 CFU/ml of kunz-sensitive E. Coli. Status: Acute (4) Pulmonary embolism: Problem comment: - s/p foot surgery in June 2017, diagnosed September 2027 and anticoagulated with warfarin for 7 months. Did consult with vice president global advertising sales at that time. - orthopedic surgery is managing her venous thromboembolism prophylaxis at this time and have indicated they will be starting her on apixaban on 11/22/2023. Status: Acute (5) Uncontrolled type 2 diabetes mellitus: Problem comment: - recent hemoglobin A1c was vastly improved from previously with a value of around 7 - Usual treatment consists of glargine insulin 80 units subcutaneously every 12 hours, aspart insulin 40 units 3 times daily with meals plus a sliding scale, Trulicity 4.5 mg/0.5 ml subcutaneously every Monday. Status: Acute (6) Morbid obesity: Problem comment: 11/21/2023 BMI 58 Status: Acute Plan 1. Reviewed impression with patient 2. Orthopedic surgery will continue to manage postoperative pain 3. Orthopedic surgery will continue to manage venous thromboembolism prophylaxis 4. Agree with perioperative antibiotics 5. Continue with other supportive efforts, including blood glucose management efforts 6. Hospital Medicine will support patient in hospital as long as Orthopedic surgery deems it necessary for the patient to be in hospital Total Time Spent Total Time Spent: 65 minute
[2023-11-21] MEDS: CEFAZOLIN 3 GM in 0.9 % SODIUM CHLORIDE Mini-bag 100 ML IVPB (18:09)
--- NOTE | 2023-11-21 18:46 | PC.NURSE ---
The patient arrived to the floor around 1600. The patient is awake and orientated. The patient is pleasant and initially reported no pain in her L knee. The dressing is CDI, Ice pack applied to L knee, and weak movement in BLE. This quickly changed and the patient reported severe pain around 1 hr later. at a 8/10. PRN Dilaudid was given 2x this shift as well as scheduled tylenol. IV ABX infusing now. Call light within reach. The patient has not been up due to poor pain control. Due to void around 1999. Delisa LOPEZ BSN
[2023-11-21] MEDS: OXYCODONE 5 MG TABLET PO ×2 (19:33→21:47)
[2023-11-21] MEDS: APIXABAN 5 MG TABLET 2.5 MG PO (21:10)
[2023-11-21] MEDS: ATORVASTATIN CALCIUM 40 MG TABLET PO (21:10)
[2023-11-21] MEDS: PREGABALIN 100 MG CAPSULE 300 MG PO (21:11)
[2023-11-21] MEDS: PRAMIPEXOLE 0.5 MG TABLET 1 MG PO (21:11)
[2023-11-21] MEDS: SENNOSIDES 1 TAB TABLET 2 TAB PO (21:12)
[2023-11-21] MEDS: TIZANIDINE HCL 4 MG TABLET PO (21:12)
[2023-11-21] MEDS: CYPROHEPTADINE HCL 4 MG TABLET PO (21:17)
[2023-11-21] MEDS: INSULIN ASPART 100 UNIT/ML SUBCUT (21:18)
[2023-11-22] MEDS: ACETAMINOPHEN 500 MG TABLET 1000 MG PO ×2 (01:24→08:04)
[2023-11-22] MEDS: CEFAZOLIN 3 GM in 0.9 % SODIUM CHLORIDE Mini-bag 100 ML IVPB (01:33)
[2023-11-22] MEDS: OXYCODONE 5 MG TABLET PO ×4 (01:41→10:54)
[2023-11-22 03:00] VITALS: BP 111/67; PULSE 71; RESP 16; TEMP 36.6; O2SAT 94
[2023-11-22] MEDS: OMEPRAZOLE 20 MG CAPSULE DR 40 MG PO (06:36)
[2023-11-22] MEDS: LEVOTHYROXINE 100 MCG TABLET 200 MCG PO (06:36)
--- NOTE | 2023-11-22 06:47 | PC.NURSE ---
End of shift note [id number]: Pt noted to be alert & oriented x 4 and is able to make needs known. Dressing to anterior L knee noted to be C/D/I and CMS to LLE noted to be intact. VSS, pt has been afebrile and on RA throughout the shift. Pt tolerating food and fluids with no N/V noted. Pt transferring/ambulating with assist of 2 with FWW and gait belt for safety. Pain to L knee managed with rest, repositioning, ice and PRN Oxycodone throughout the shift. IV to L AC patent and SL. Plexi pulses worn to bilateral feet throughout the shift. Blood glucose of 362 noted at HS with no s/sx of hyperglycemia noted and scheduled insulins administered per orders. Pt continent of bladder throughout the shift with last BM of 11/19/23 per pt report. ?
[2023-11-22 07:00] VITALS: BP 114/67; PULSE 69; RESP 20; TEMP 36.7; O2SAT 99
[2023-11-22 07:09] LABS: Hematocrit 34.8 % (33.0-51.0); Hemoglobin* 11.3 gm/dL (12.0-16.0); Immature Granulocytes Abs Auto 0.02 K/uL (0.00-0.30); Immature Granulocytes Pct Auto 0.2 %; Lymphocytes Percent Auto 7.7 % (20-44); Mean Corpuscular HGB Conc 33 gm/dL (32-36); Mean Corpuscular Hemoglobin 27 pg (26-34); Mean Corpuscular Volume 84 fL (80-100); Monocytes Percent Auto 3.1 % (0.0-11.0); Platelet Count* 231 K/uL (140-440); RDW Coefficient of Variation % 14.7 % (11.5-15.5); Red Blood Count 4.14 m/uL (4.00-5.20); White Blood Count* 8.94 K/uL (4.50-11.00)
[2023-11-22 07:11] LABS: Slide Review Reflex No
[2023-11-22 07:19] LABS: Potassium* 4.4 mmol/L (3.6-5.1); Sodium* 136 mmol/L (135-149)
[2023-11-22 07:20] LABS: INR 1.03 (0.91-1.10); Prothrombin Time 14.1 Seconds
[2023-11-22 07:22] LABS: Blood Urea Nitrogen* 19 mg/dL (7-30); Creatinine* 0.9 mg/dL (0.5-1.5); Est. Creatinine Clearance* 76.42; Estimated Glomerular Filt Rate 77 ml/min
--- NOTE | 2023-11-22 07:43 | P.ORPN_ITS ---
Subjective Subjective Time Seen by Provider: 07:43 Date Seen: 11/22/23 Principal diagnosis: Status post left knee replacement Interval history: Alea is doing well today. Her pain is controlled. She will be discharging to home. Ortho Exam Narrative Exam Narrative: Alert and oriented x3. Patient is in no acute distress. Converses without labored breathing. Hearing is grossly intact. Ambulates with a walker. Examination of the left knee shows the dressing is intact. No erythema or warmth or sign of infection. No palpable edema or effusion. CMS intact left lower extremity. Easily able to straight leg raise. Bilateral calves are soft and nontender. Const Vital Signs, click to edit/add: Vital Signs - 24 hr 11/21/23 11:47 11/21/23 11:58 11/21/23 12:00 Temperature 98.2 F Pulse Rate 75 70 72 Pulse Rate [Pulse Oximeter] Respiratory Rate 16 16 16 Blood Pressure 118/60 119/68 125/69 Blood Pressure [Right Arm] Pulse Oximetry 97 97 97 Oxygen Delivery Method Room Air Nasal Cannula Nasal Cannula Oxygen Flow Rate 2 2 11/21/23 15:16 11/21/23 15:20 11/21/23 15:25 Temperature 97.1 F L 97.1 F L 97.1 F L Pulse Rate 75 76 75 Pulse Rate [Pulse Oximeter] Respiratory Rate 22 14 15 Blood Pressure 127/79 127/75 127/78 Blood Pressure [Right Arm] Pulse Oximetry 95 96 96 Oxygen Delivery Method Room Air Room Air Room Air Oxygen Flow Rate 11/21/23 15:30 11/21/23 15:35 11/21/23 15:40 Temperature 97.1 F L 97.1 F L 97.1 F L Pulse Rate 74 73 73 Pulse Rate [Pulse Oximeter] Respiratory Rate 18 18 16 Blood Pressure 138/81 131/82 132/78 Blood Pressure [Right Arm] Pulse Oximetry 96 97 95 Oxygen Delivery Method Room Air Room Air Room Air Oxygen Flow Rate 11/21/23 15:45 11/21/23 15:49 11/21/23 16:05 Temperature 97.9 F 96.5 F L 97.0 F L Pulse Rate 73 74 73 Pulse Rate [Pulse Oximeter] Respiratory Rate 17 16 16 Blood Pressure 133/79 134/65 133/80 Blood Pressure [Right Arm] Pulse Oximetry 95 95 98 Oxygen Delivery Method Room Air Room Air Room Air Oxygen Flow Rate 11/21/23 16:25 11/21/23 16:50 11/21/23 17:30 Temperature 97.0 F L 97.1 F L 97.2 F L Pulse Rate 70 70 77 Pulse Rate [Pulse Oximeter] Respiratory Rate 16 18 16 Blood Pressure 127/74 125/68 101/62 Blood Pressure [Right Arm] Pulse Oximetry 98 98 98 Oxygen Delivery Method Room Air Room Air Room Air Oxygen Flow Rate 11/21/23 18:00 11/21/23 19:00 11/21/23 19:25 Temperature 97.4 F L 98.0 F 97.4 F L Pulse Rate 75 73 Pulse Rate [Pulse Oximeter] 73 Respiratory Rate 16 18 18 Blood Pressure 122/68 120/68 Blood Pressure [Right Arm] 120/68 Pulse Oximetry 98 90 90 Oxygen Delivery Method Room Air Room Air Room Air Oxygen Flow Rate 11/21/23 20:00 11/21/23 21:00 11/21/23 22:00 Temperature 98.0 F 97.9 F 98.6 F Pulse Rate 80 74 75 Pulse Rate [Pulse Oximeter] Respiratory Rate 16 16 16 Blood Pressure 123/65 127/66 108/61 Blood Pressure [Right Arm] Pulse Oximetry 93 93 90 Oxygen Delivery Method Room Air Room Air Room Air Oxygen Flow Rate 11/21/23 22:30 11/21/23 23:00 11/22/23 03:00 Temperature 98.6 F 97.8 F Pulse Rate Pulse Rate [Pulse Oximeter] 75 75 71 Respiratory Rate 16 16 16 Blood Pressure Blood Pressure [Right Arm] 108/61 111/67 Pulse Oximetry 90 94 Oxygen Delivery Method Room Air Room Air Oxygen Flow Rate Assessment and Plan Assessment and plan (1) Status post left knee replacement: Problem details: On 11/21/2023, [facility], Dr. Sven Owusu Status: Acute Assessment and Plan: Plan for discharge is today to home if they meet discharge criteria. DVT prophylaxis includes Eliquis 2.5 mg b.i.d. x1 month, Compression stockings as needed for swelling. Frequent ambulation, every hour throughout the day. Remove dressing in 1 week. Observe wound and phone Orthopedics with any questions or concerns Return to clinic in 1 week for a wound check Return to clinic in 6 weeks with surgeon Minimize narcotic use. Wean off and discontinue soon as possible. Activities as tolerated. No strenuous activity. Outpatient physical therapy as scheduled. Ice and elevate the operative extremity. No restriction on ice.
[2023-11-22] MEDS: INSULIN ASPART 100 UNIT/ML 40 UNIT SUBCUT (07:52)
[2023-11-22] MEDS: METOPROLOL SUCCINATE (XL) 25 MG TAB PO (08:03)
[2023-11-22] MEDS: lisinopriL 5 MG TABLET PO (08:03)
[2023-11-22] MEDS: SENNOSIDES 1 TAB TABLET 2 TAB PO (08:04)
[2023-11-22] MEDS: CITALOPRAM HYDROBROMIDE 20 MG TABLET 30 MG PO (08:05)
[2023-11-22] MEDS: APIXABAN 5 MG TABLET 2.5 MG PO (08:05)
[2023-11-22] MEDS: PREGABALIN 100 MG CAPSULE 300 MG PO (08:05)
== END 2023-11-22 11:02 | disposition home or self-care (01) ==
LOC: OR 11:12 → MEDSURG 11:13
PROVIDERS: Visit Provider Orthopaedic Surgery
PROC: (CPT 27447; principal; 2023-11-21 12:30)
DX: M17.12 Unilateral primary osteoarthritis, left knee (principal); G89.18 Other acute postprocedural pain; E66.01 Morbid (severe) obesity due to excess calories; I10 Essential (primary) hypertension; Z79.4 Long term (current) use of insulin; Z68.43 Body mass index [BMI] 50.0-59.9, adult; E11.65 Type 2 diabetes mellitus with hyperglycemia; N39.0 Urinary tract infection, site not specified; B96.20 Unspecified Escherichia coli [E. coli] as the cause of diseases classified elsewhere; Z86.711 Personal history of pulmonary embolism; F17.200 Nicotine dependence, unspecified, uncomplicated; Z86.718 Personal history of other venous thrombosis and embolism
CPT/HCPCS: 27447; 01402; 36415; 64447; 64454; 73560; 76942; 82565; 82962; 84132; 84295; 84520; 85025; 85610; 97110; 97116; 97161; 97165; 97530; 97535; A9270; C1776; J0690; J1100; J1170; J2250; J2405; J2704; J2795; J3010; J7120

== ENCOUNTER 2024-01-30 10:07 | Day surgery (SDC) | payer MEDICARE, MEDICAID, SELFPAY ==
[2024-01-30] VITALS (23 sets, daily range): BP systolic 98–139; BP diastolic 47–80; PULSE 62–86; RESP 16–28; TEMP 35.9–36.7; O2SAT 91–100; BMI 58.6
[2024-01-30] MEDS: ACETAMINOPHEN 500 MG TABLET 1000 MG PO ×3 (10:30→23:29)
[2024-01-30] MEDS: CELECOXIB 200 MG CAPSULE PO (10:30)
[2024-01-30] MEDS: OXYCODONE (CR) 10 MG TAB.ER.12H PO (10:30)
[2024-01-30] MEDS: SODIUM CHLORIDE 0.9 % (FLUSH) 10 ML SYRINGE IVF (10:45)
[2024-01-30] MEDS: LACTATED RINGERS 1000 ML 1,000 ML 100 ML IV (10:45)
[2024-01-30] MEDS: MIDAZOLAM HCL 1 MG/ML inj IVP (11:30)
[2024-01-30] MEDS: fentaNYL 100 MCG/2 ML inj IVP (11:30)
--- NOTE | 2024-01-30 11:46 | SUR.PREOP ---
TIME?OUT:?1130 PT/Alonzo PURVIS RN/Nicholas RODRIGUEZ MDA?VERIFICATION?OF?SURGICAL?SITE,?PROCEDURE,?AND?CONSENT OBTAINED?PRIOR?TO?INVASIVE?PROCEDURE.
--- NOTE | 2024-01-30 12:26 | SUR.OPER ---
PATIENT QUESTIONS ANSWERED SATISFACTORILY PREOPERATIVELY.? PATIENT BROUGHT TO OR #2 PER CART AFTER ADMINISTRATION OF A BLOCK.? Patient positioned supine on OR #2 bed.? The perioperative?team supported arms bilaterally on arm boards.? Final approval of positioning by surgeon.
[2024-01-30] MEDS: TRANEXAMIC ACID 100 MG/ML INJ 1000 MG IV (13:24)
[2024-01-30] MEDS: CEFAZOLIN 1 GM inj 3 GM IVP (13:24)
--- NOTE | 2024-01-30 13:47 | P.NB_ITS ---
Nerve Block Nerve Block Time Seen by Provider: 11:32 Date Seen: 01/30/24 Type of block requested by surgeon for post-operative analgesia: adductor canal Side: right Time out performed: Yes Verification of patient name: Yes Verification of date of : Yes Site marking: site marked Name of person performing procedure: Praveen Continuous monitoring Was continuous monitoring of O2 sat, B/P, research contracts supervisor, recorded every 15 minutes?: Yes Procedure Checklist: sterile prep, needles and gloves Ultrasound guided. Images saved: Yes Medications given in 5ml increments after negative aspiration: Ropivicaine %: 0.5 mL: 20 Needle gauge: 20 Decadron (mg): 10 Precedex (mcg): 25 Patient tolerated procedure well: Yes Additional comments: Needle noted adjacent to nerve Block Charges Block Charge (with Pro Fee): Femoral Nerve Use of Ultrasound Machine for Block: Yes- US Guidance/pain block
--- NOTE | 2024-01-30 13:48 | P.NB_ITS ---
Nerve Block Nerve Block Time Seen by Provider: 11:32 Date Seen: 01/30/24 Type of block requested by surgeon for post-operative analgesia: geniculars Side: right Time out performed: Yes Verification of patient name: Yes Verification of date of : Yes Site marking: site marked Name of person performing procedure: Praveen Continuous monitoring Was continuous monitoring of O2 sat, B/P, cardiac exercise specialist, recorded every 15 minutes?: Yes Procedure Checklist: sterile prep, needles and gloves Medications given in 5ml increments after negative aspiration: Ropivicaine %: 0.5 mL: 9 Needle gauge: 25 Patient tolerated procedure well: Yes Block Charges Block Charge (with Pro Fee): Genicular Nerve Block Use of Ultrasound Machine for Block: No
--- NOTE | 2024-01-30 13:49 | W.ANESCHARGE ---
Anesthesia Charges Start Date/Time Anesthesia Start Date: 01/30/24 Anesthesia Start Time: 13:07 Stop Date/Time Anesthesia Stop Date: 01/30/24 Anesthesia Stop Time: 16:16
--- NOTE | 2024-01-30 15:18 | CRLHL7_ITS ---
For Patients: As a result of the Cures Act, medical imaging exams and procedure reports are released immediately into your electronic medical record. You may view this report before your referring provider. If you have questions, please contact your health care provider. Indication: Postop Technique: Two views right knee Findings/Impression: Hardware from a right total knee arthroplasty is in satisfactory position. Bone alignment is normal. No sign of acute fracture. Postop changes are within normal limits. Dictated by Jai Mallory MD @ 01/31/2024 12:28:33 PM (Electronically Signed)
--- NOTE | 2024-01-30 15:27 | PM.ORPRC ---
Procedure Note Date of procedure: 01/30/24 Procedure: PREOPERATIVE DIAGNOSIS: Right knee osteoarthritis POSTOPERATIVE DIAGNOSIS: Right knee osteoarthritis NAME OF OPERATION: Right total knee arthroplasty SURGEON: Sven Owusu MD PRODUCT MERCHANDISER: Yuly Velazquez PA-C, Tomeka Mayer PA-C ANESTHESIA: Spinal ESTIMATED BLOOD LOSS: 0 mL COMPLICATIONS: None SPECIMENS: None DRAINS: None PREOPERATIVE ANTIBIOTICS: Ancef 3 grams, antibiotic impregnated cement IMPLANTS: 1. J[employer]J Attune revision CRS #6 posterior stabilized femur, with a 14 mm x 50 mm cemented stem 2. #6 revision CRS fixed-bearing tibia, with a 14 mm x 50 mm cemented stem 3. #6 posterior stabilized, 5 mm fixed-bearing polyethylene 4. 38 patella INDICATIONS: The patient is a 53-year-old with a longstanding history of severe, unrelenting right knee pain secondary to end-stage (grade IV) right knee osteoarthritis. Despite appropriate nonoperative management, including activity modification, anti-inflammatories, [id number] pain medication, bracing, physical therapy, and injections they continue to have pain and disability. Operative intervention was offered. The risks, benefits and expected outcomes were discussed in detail. These included but were not limited to: Infection, bleeding, injury to blood vessel or nerve, venous thromboembolism. All questions were answered to their satisfaction. Use of an veterinary technician assistant was necessary throughout the case for patient positioning and safety, soft tissue retraction, and closure. A modifier 22 should be added to this case. The patient has class 3 obesity with a weight of 180 kg and a BMI 59. There was a 60 mm layer of adipose over the extensor mechanism. These factors more than doubled the time typically required to complete the case. Additionally, stemmed components were used to reduce the risk of aseptic loosening in this sized patient. This significantly added more cost to the case as well. PROCEDURE: Spinal anesthesia was administered. The patient was placed supine on the operating table. The veterinary technician assistant made sure the patient was positioned appropriately. The lower extremity was prepped and draped in the usual sterile fashion. The limb was exsanguinated with the Thony bandage. The pneumatic tourniquet was inflated to 300 mmHg. A standard anterior incision was made with the knee in flexion. Subcutaneous dissection was sharply taken through fascial layer #1. Full-thickness medial and lateral flaps were elevated. The veterinary technician assistant retracted the soft tissues and protected them throughout the case. A standard subvastus approach was made. The patella was subluxed. The infrapatellar fat pad was debrided. The menisci and cruciate ligaments were sharply d?brided. Marginal osteophytes were d?brided with the rongeur. The drill was used to penetrate the femoral canal. The canal was aspirated and irrigated with pulse lavage. The intramedullary femoral guide was placed for a 5-degree valgus cut, removing 10 mm off the distal femur. The saw was used to make the cut. Attention was then turned to the proximal tibia. The extramedullary tibial guide was placed for a neutral varus/valgus cut with 5 degrees of posterior slope, removing 2 mm based off the medial tibial surface. The veterinary technician assistant protected the collateral ligaments and the neurovascular bundle. The saw was used to make the cut. Attention was then returned to the femur. Whitesides line and the trans epicondylar axis were marked. The femoral sizing guide was pinned onto the distal femur. Three degrees of external rotation nicely parallels the transepicondylar axis. Pins were placed for posterior referencing. The four-in-one cutting guide was pinned onto the distal femur. The anterior, posterior, and chamfer cuts were made. The veterinary technician assistant protected the collateral ligaments. The revision trial was placed. The box cuts were made. The drill was used x2. The stemmed, boxed trial was placed and was an excellent fit. The revision tray was placed in appropriate rotation, parallel to our tibial cutting pins. It was pinned by the veterinary technician assistant and the drill x2 was used. The stemmed tibial trial was placed. The punch was used. The tray was removed. The punch was used again. Trial components were placed the knee came to full extension and was nicely balanced in both flexion and extension. Attention was then turned to the patella. Venetie patellar thickness was 19 mm. The lobster claw resection guide was used with the 7.5 mm danielle. The saw was used to make the cut. Drill holes were made by the veterinary technician assistant. The trial was placed and was an excellent fit. Cancellous surfaces were irrigated with pulse lavage and thoroughly dried by the veterinary technician assistant. We cemented the tibial component, then the femoral component. We impacted the 5 mm polyethylene onto the tibial tray. The knee was brought into full extension. We then cemented the patellar component. Excessive cement was removed. The cement was allowed to harden. The knee was taken through a range of motion and was found to be nicely balanced in both flexion and extension. The patella tracks centrally. The veterinary technician assistant did a three minute dilute Betadine solution soak. The veterinary technician assistant irrigated the wound with 3 liters of normal saline via pulse lavage. The veterinary technician assistant reapproximated the extensor mechanism with #1 Vicryl in an interrupted [id number]-hawvl fashion. The veterinary technician assistant then ran the extensor mechanism with a #1 PDO Stratafix. The veterinary technician assistant closed the subcutaneous tissues with a 3-0 Stratafix and the skin with a running 3-0 Stratafix in a subcuticular fashion. Glue was used to seal the skin. The veterinary technician assistant placed a dry dressing. Sponge and needle counts were correct x2. The patient tolerated the procedure well. There were no apparent complications. They were carefully transferred to the hospital bed and taken to the postanesthesia care unit in satisfactory condition. PLAN: The patient will be mobilized with physical therapy. Xarelto will be used for DVT prophylaxis for 30 days. They will be discharged to home once medically appropriate.
[2024-01-30] MEDS: HYDROmorphone 0.5 mg/0.5 ml inj IVP ×2 (16:23→17:27)
--- NOTE | 2024-01-30 16:31 | W.ANESCHARGE ---
Anesthesia Charges Start Date/Time Anesthesia Start Date: 01/30/24 Anesthesia Start Time: 13:07 Stop Date/Time Anesthesia Stop Date: 01/30/24 Anesthesia Stop Time: 16:16
[2024-01-30] MEDS: fentaNYL 100 MCG/2 ML inj 50 MCG IVP ×2 (16:34→16:44)
[2024-01-30] MEDS: LACTATED RINGERS 1000 ML 1,000 ML 75 ML IV (17:27)
[2024-01-30] MEDS: INSULIN ASPART 100 UNIT/ML 20 UNIT SUBCUT (18:25)
--- NOTE | 2024-01-30 18:26 | PM.IMCN1 ---
Date of Consult Patient: Rosalie Patient Consult date: 01/30/24 Requesting Physician: Orthopedics Primary Care Provider: Not a Local Provider Consult Narrative Reason for consult: Postop medical support of DM, hypertension, + other medical conditions Narrative: Laura Madrid is a 53 year old woman with advanced right gonarthrosis undergoes elective right total knee arthroplasty today without obvious complications. Estimated blood loss 0. Status post left total knee arthroplasty November 2023 with excellent results. Underlying chronic pain including from back etiology, status post radiofrequency ablation of lumbar spine nerves this past 01/26/2024, [place], [place], with good results. Has held her Trulicity for over a week now because of the procedure this past Monday and today's procedure. Blood sugars typically between 100 and 200. Estimates her aspart insulin use, typically around 40 units with each meal. Takes 80 units of glargine insulin twice daily. Blood pressures have been adequately managed on current regimen. Review of Systems Status of ROS: Reports: 6 or more systems reviewed and unremarkable except as noted in History and below 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 therapy (ICD-10) Paroxysmal SVT (supraventricular tachycardia) (07/28/21) ?I47.10 - Supraventricular tachycardia, unspecified (ICD-10) Localized osteoarthritis of left knee (04/06/20) ?M17.12 - Unilateral primary osteoarthritis, left knee (ICD-10) Hypertension (04/23/11) ?I10 - Essential (primary) hypertension (ICD-10) Hyperlipidemia (03/14/14) ?E78.5 - Hyperlipidemia, unspecified (ICD-10) GERD (gastroesophageal reflux disease) (11/26/08) ?K21.9 - Gastro-esophageal reflux disease without esophagitis (ICD-10) Gastroparesis (11/26/08) ?K31.84 - Gastroparesis (ICD-10) Esophageal stricture (02/25/22) ?K22.2 - Esophageal obstruction (ICD-10) Esophageal reflux (03/02/06) ?K21.9 - Gastro-esophageal reflux disease without esophagitis (ICD-10) 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) ?U09.9 - Post COVID-19 condition, unspecified (ICD-10) Vitamin D deficiency (09/10/10) ?E55.9 - Vitamin D deficiency, unspecified (ICD-10) Varicose veins of lower extremities with other complications (09/18/13) ?I83.893 - Varicose veins of bilateral lower extremities with other complications (ICD-10) Tear of medial meniscus of left knee, current (04/06/20) ?S83.242A - Other tear of medial meniscus, current injury, left knee, initial encounter (ICD-10) Restless legs (11/26/08) ?G25.81 - Restless legs syndrome (ICD-10) Primary open angle glaucoma (POAG) of both eyes, mild stage (03/08/21) ?H40.1131 - Primary open-angle glaucoma, bilateral, mild stage (ICD-10) Postoperative hypothyroidism (03/25/15) ?E89.0 - Postprocedural hypothyroidism (ICD-10) Peroneal tendon tear ?S86.319A - Strain of muscle(s) and tendon(s) of peroneal muscle group at lower leg level, unspecified leg, initial encounter (ICD-10) PE (pulmonary thromboembolism) (11/22/17) ?I26.99 - Other pulmonary embolism without acute cor pulmonale (ICD-10) Thyroid cancer (08/13/07) ?C73 - Malignant neoplasm of thyroid gland (ICD-10) Other specified glaucoma (05/24/21) ?H40.89 - Other specified glaucoma (ICD-10) Obesity, unspecified (11/26/08) ?E66.9 - Obesity, unspecified (ICD-10) Myopia of left eye with astigmatism and presbyopia (02/06/17) ?H52.12 - Myopia, left eye (ICD-10) ?H52.202 - Unspecified astigmatism, left eye (ICD-10) ?H52.4 - Presbyopia (ICD-10) Migraine (03/17/07) ?G43.909 - Migraine, unspecified, not intractable, without status migrainosus (ICD-10) Microalbuminuria due to type 2 diabetes mellitus (10/01/21) ?E11.29 - Type 2 diabetes mellitus with other diabetic kidney complication (ICD-10) ?R80.9 - Proteinuria, unspecified (ICD-10) Lumbosacral spondylosis without myelopathy ?M47.817 - Spondylosis without myelopathy or radiculopathy, lumbosacral region (ICD-10) Lumbosacral radiculopathy ?M54.17 - Radiculopathy, lumbosacral region (ICD-10) Lower respiratory tract infection (10/17/19) ?J22 - Unspecified acute lower respiratory infection (ICD-10) Low back pain ?M54.50 - Low back pain, unspecified (ICD-10) Hyperopia of right eye with astigmatism and presbyopia (02/06/17) ?H52.01 - Hypermetropia, right eye (ICD-10) ?H52.201 - Unspecified astigmatism, right eye (ICD-10) ?H52.4 - Presbyopia (ICD-10) Depression, major, single episode, severe (07/28/21) ?F32.2 - Major depressive disorder, single episode, severe without psychotic features (ICD-10) COVID-19 virus infection (10/23/19) ?U07.1 - COVID-19 (ICD-10) Complex tear of lateral meniscus of left knee as current injury (04/06/20) ?S83.272A - Complex tear of lateral meniscus, current injury, left knee, initial encounter (ICD-10) Chronic pain ?G89.29 - Other chronic pain (ICD-10) Bilateral occipital neuralgia (08/13/20) ?M54.81 - Occipital neuralgia (ICD-10) Morbid obesity ?E66.01 - Morbid (severe) obesity due to excess calories (ICD-10) Recurrent urinary tract infection ?N39.0 - Urinary tract infection, site not specified (ICD-10) Depression ?F32.A - Depression, unspecified (ICD-10) SVT (supraventricular tachycardia) ?I47.10 - Supraventricular tachycardia, unspecified (ICD-10) Hypokalemia ?E87.6 - Hypokalemia (ICD-10) Hx of coronary angiogram ?Z98.890 - Other specified postprocedural states (ICD-10) COVID-19 long hauler ?U09.9 - Post COVID-19 condition, unspecified (ICD-10) Esophageal stricture ?K22.2 - Esophageal obstruction (ICD-10) Paroxysmal SVT (supraventricular tachycardia) ?I47.10 - Supraventricular tachycardia, unspecified (ICD-10) Uncontrolled type 2 diabetes mellitus DVT (deep venous thrombosis) ?I82.409 - Acute embolism and thrombosis of unspecified deep veins of unspecified lower extremity (ICD-10) Pulmonary embolism ?I26.99 - Other pulmonary embolism without acute cor pulmonale (ICD-10) Hyperlipidemia ?E78.5 - Hyperlipidemia, unspecified (ICD-10) Hypertension ?I10 - Essential (primary) hypertension (ICD-10) Gastroparesis ?K31.84 - Gastroparesis (ICD-10) Papillary thyroid carcinoma ?C73 - Malignant neoplasm of thyroid gland (ICD-10) GERD (gastroesophageal reflux disease) ?K21.9 - Gastro-esophageal reflux disease without esophagitis (ICD-10) Surgical History (Updated 01/30/24 @ 18:04 by Sancho Good MD) Status post right knee replacement ?Z96.651 - Presence of right artificial knee joint (ICD-10) History of total left knee replacement (11/21/23) ?Z96.652 - Presence of left artificial knee joint (ICD-10) History of phacoemulsification of cataract of both eyes with intraocular lens implantation ?Z98.41 - Cataract extraction status, right eye (ICD-10) ?Z98.42 - Cataract extraction status, left eye (ICD-10) ?Z96.1 - Presence of intraocular lens (ICD-10) Hx of thyroidectomy ?E89.0 - Postprocedural hypothyroidism (ICD-10) Hx of hysterectomy ?Z90.710 - Acquired absence of both cervix and uterus (ICD-10) Hx of hemorrhoidectomy ?Z98.890 - Other specified postprocedural states (ICD-10) Hx of cholecystectomy ?Z90.49 - Acquired absence of other specified parts of digestive tract (ICD-10) Family History Father Diabetes Cancer Depression Heart disease Sister Diabetes Depression High cholesterol High blood pressure Seizure disorder Paternal Grandfather Coronary artery disease Brother High blood pressure Mother High blood pressure Paternal Grandmother Thyroid disease Social History What is your current living situation?: I presently have a place to live Problems where you live: no known problems Problems where you live details: NA In the past 12 months, utilities in danger of being shut off: no In past 12 months, lack of transportation kept you from medical appts, meetings, work, or getting things needed for daily living: no In the past 12 mos, have been you worried that your food would run out before you had money to buy more?: never true In the past 12 mos, the food you bought just didn't last and you didn't have money to buy more?: never true Smoking Status: Current some day smoker What tobacco products do you use: cigarettes Do you use any of these nicotine containing products: None How often do you have a drink containing alcohol: never AUDIT-C Alcohol total score: 0 Non-prescribed substance use: denies use Caffeine: Yes How often does anyone, including family, friends and others, physically hurt you: never How often does anyone, including family, friends and others, insult or talk down to you: never How often does anyone, including family, friends and others, threaten you with harm: never How often does anyone, including family, friends and others, scream or curse at you: never Are you using contraception or practicing any form of control: No Meds Home Medications and Allergies Home Medications ?Medication ?Instructions ?Recorded ?Confirmed ?Type atorvastatin 40 mg tablet 40 mg PO HS 07/31/23 01/30/24 History citalopram 20 mg tablet 30 mg PO DAILY 07/31/23 01/30/24 History cyclobenzaprine 10 mg tablet 10 mg PO TID PRN muscle spasm 07/31/23 01/30/24 History dihydroergotamine 1 mg/mL 0.5 - 1 mg IM DAILY PRN 07/31/23 01/30/24 History injection solution esomeprazole magnesium 40 mg 40 mg PO DAILY 07/31/23 01/30/24 History capsule,delayed release insulin glargine 100 unit/mL (3 80 unit subcut BID 07/31/23 01/30/24 History mL) subcutaneous pen (Lantus Solostar U-100 Insulin) levothyroxine 200 mcg tablet 200 mcg PO QAM 07/31/23 01/30/24 History lisinopril 5 mg tablet 5 mg PO DAILY 07/31/23 01/30/24 History loratadine-pseudoephedrine ER 10 1 tab PO DAILY 07/31/23 01/30/24 History mg-240 mg tablet,extended [id number] (Loratadine-D) metoprolol succinate 25 mg 25 mg PO DAILY 07/31/23 01/30/24 History tablet,extended release 24 hr nystatin 100,000 unit/gram topical 1 applic topical TID PRN 07/31/23 01/30/24 History powder pramipexole 0.25 mg tablet 0.75 - 1 mg PO HS 07/31/23 01/30/24 History pregabalin 300 mg capsule 300 mg PO BID 07/31/23 01/30/24 History tizanidine 4 mg tablet 4 mg PO HS 07/31/23 01/30/24 History blood sugar diagnostic (Contour #10 ea 11/13/23 01/30/24 History Next Test Strips) ketorolac 60 mg/2 mL intramuscular 30 - 60 mg IM DAILY PRN 11/13/23 01/30/24 History solution ondansetron HCl 4 mg tablet 4 mg PO Q8H PRN nausea/vomiting 11/13/23 01/30/24 History acetaminophen 500 mg tablet 1,000 mg PO Q6H PRN 11/20/23 01/30/24 History cyproheptadine 4 mg tablet 4 mg PO QHS PRN 11/20/23 01/30/24 History dulaglutide 4.5 mg/0.5 mL 4.5 mg subcut Q7D 11/20/23 01/30/24 History subcutaneous pen injector (Trulicity) sodium fluoride 1.1 %-potassium 1 applic dental HS 11/21/23 01/30/24 History nitrate 5 % dental paste (PreviDent 5000 Enamel Protect) insulin aspart 1 - 40 unit subcut TIDWM 01/30/24 01/30/24 History (niacinamide)(U-100) 100 unit/mL(3 mL) subcutaneous pen (Fiasp FlexTouch U-100 Insulin) Allergies Allergy/AdvReac Type Severity Reaction Status Date / Time cefprozil [From Cefzil] Allergy Severe Hives Verified 01/30/24 10:32 isosorbide [From Imdur] Allergy Severe Rash Verified 01/30/24 10:32 latex Allergy Severe Hives Verified 01/30/24 10:32 levofloxacin Allergy Severe Diarrhea Verified 01/30/24 10:32 erythromycin base Allergy Verified 01/30/24 10:32 Iodinated Contrast Media Allergy Verified 01/30/24 10:32 iodine Allergy Verified 01/30/24 10:32 Exam Narrative: Exam Narrative: I examined patient in her hospital room. Appears comfortable. Vision and hearing are normal. Eating her evening meal without difficulties. Alert and oriented to self, others, place, time, situation. Friendly, articulate, cooperative. Lungs are clear to auscultation. Heart tones with regular rhythm. Abdomen with active bowel sounds, soft, nontender. No focal motor neurologic deficits. Const: Vital Signs, click to edit/add: Vital Signs - 24 hr 01/30/24 10:34 01/30/24 11:30 01/30/24 11:35 Temperature 97.9 F Pulse Rate 75 67 67 Respiratory Rate 20 16 16 Blood Pressure 139/69 121/62 115/63 Pulse Oximetry 98 100 98 Oxygen Delivery Me thod Room Air Nasal Cannula Nasal Cannula Oxygen Flow Rate 3 3 01/30/24 11:40 01/30/24 16:15 01/30/24 16:20 Temperature 96.7 F L 97.6 F Pulse Rate 67 68 64 Respiratory Rate 16 16 16 Blood Pressure 110/66 116/72 117/71 Pulse Oximetry 100 95 92 Oxygen Delivery Me thod Nasal Cannula Room Air Room Air Oxygen Flow Rate 3 01/30/24 16:25 01/30/24 16:30 01/30/24 16:35 Temperature Pulse Rate 65 65 63 Respiratory Rate 16 16 16 Blood Pressure 117/71 111/67 111/71 Pulse Oximetry 94 94 92 Oxygen Delivery Me thod Room Air Room Air Room Air Oxygen Flow Rate 01/30/24 16:40 01/30/24 16:45 01/30/24 16:51 Temperature 98.0 F Pulse Rate 63 63 62 Respiratory Rate 16 16 16 Blood Pressure 112/70 108/68 112/65 Pulse Oximetry 94 93 94 Oxygen Delivery Me thod Room Air Room Air Room Air Oxygen Flow Rate 01/30/24 17:00 Temperature 96.9 F L Pulse Rate 65 Respiratory Rate 16 Blood Pressure 123/71 Pulse Oximetry 95 Oxygen Delivery Me thod Room Air Oxygen Flow Rate Assessment and Plan Assessment and plan (1) Osteoarthritis of right knee: Status: Acute (2) Status post right knee replacement: Problem comment: - 01/30/2024, [facility], Dr. Owusu. Status: Acute (3) Status post left knee replacement: Problem comment: On 11/21/2023, [facility], Dr. Sven Owusu Status: Acute (4) Uncontrolled type 2 diabetes mellitus: Problem comment: - recent hemoglobin A1c was vastly improved from previously with a value of around 7 - Usual treatment consists of glargine insulin 80 units subcutaneously every 12 hours, aspart insulin 40 units 3 times daily with meals plus a sliding scale, Trulicity 4.5 mg/0.5 ml subcutaneously every Monday. - will continue with twice daily glargine insulin 80 units, decrease mealtime insulin to 20 units 3 times daily plus a sliding scale, continue to hold Trulicity in hospital, and encourage patient to help us adjust her aspart insulin dosing with her meals. Status: Acute (5) Morbid obesity: Problem comment: 11/21/2023 BMI 58 Status: Acute (6) Pulmonary embolism: Problem comment: - s/p foot surgery in June 2017, diagnosed September 2027 and anticoagulated with warfarin for 7 months. Did consult with first officer and flight instructor at that time. - orthopedic surgery is managing her venous thromboembolism prophylaxis at this time and have indicated they will be starting her on apixaban post-operatively. Status: Acute (7) Polypharmacy: Status: Acute Plan 1. Reviewed impression with patient. Answered her questions. 2. Agree with PT and OT consultations. 3. Agree with perioperative antibiotic prophylaxis. 4. Agree with postoperative anticoagulation plan with apixaban. 5. Completed hospitalist portion of discharge orders. 6. Hospital Medicine will be available to support patient while she is in the hospital. Total Time Spent Total Time Spent: 60 minutes
[2024-01-30] MEDS: OXYCODONE 5 MG TABLET PO ×3 (18:29→22:43)
[2024-01-30] MEDS: CEFAZOLIN 3 GM in 0.9 % SODIUM CHLORIDE Mini-bag 100 ML IVPB (19:14)
[2024-01-30] MEDS: PREGABALIN 100 MG CAPSULE 300 MG PO (20:38)
[2024-01-30] MEDS: SENNOSIDES 1 TAB TABLET 2 TAB PO (20:38)
[2024-01-30] MEDS: PRAMIPEXOLE 0.5 MG TABLET 1 MG PO (20:38)
[2024-01-30] MEDS: ATORVASTATIN CALCIUM 40 MG TABLET PO (20:39)
[2024-01-30] MEDS: APIXABAN 5 MG TABLET 2.5 MG PO (20:39)
[2024-01-30] MEDS: TIZANIDINE HCL 4 MG TABLET PO (20:39)
[2024-01-30] MEDS: INSULIN GLARGINE,HUM.REC.ANLOG 100 UNIT/ML INSULN.PEN 80 UNIT SUBCUT (20:49)
--- NOTE | 2024-01-30 22:18 | PC.NURSE ---
End of Shift: Patient pleasant and cooperative. Afebrile. Dressing to right knee C/D/I. CMS intact. Rating pain in right knee 5-6/10 and PRN Dilaudid and Oxycodone given. Up to chair and bathroom with 1 assist, walker and gait belt. Tolerating regular diet with no nausea.
[2024-01-30] MEDS: INSULIN ASPART 100 UNIT/ML SUBCUT (22:44)
[2024-01-31 03:00] VITALS: BP 104/59; PULSE 75; RESP 24; TEMP 36.2; O2SAT 96
[2024-01-31] MEDS: OXYCODONE 5 MG TABLET PO ×2 (03:00→08:46)
[2024-01-31] MEDS: CEFAZOLIN 3 GM in 0.9 % SODIUM CHLORIDE Mini-bag 100 ML IVPB (03:13)
--- NOTE | 2024-01-31 05:19 | PC.NURSE ---
[id number] Pt slept between cares, ambulating to br with walker, GB, SBA, tolerating activity very well. pain controlled with oral pain medications. ice applied to R knee prn, pt tolerating activity very well. dressing to R knee C/D/I.
[2024-01-31] MEDS: ACETAMINOPHEN 500 MG TABLET 1000 MG PO (05:46)
[2024-01-31] MEDS: LEVOTHYROXINE 100 MCG TABLET 200 MCG PO (05:47)
[2024-01-31] MEDS: OMEPRAZOLE 20 MG CAPSULE DR 40 MG PO (06:22)
[2024-01-31 06:54] LABS: Sodium* 134 mmol/L (135-149)
[2024-01-31 06:55] LABS: Basophils Absolute Auto 0.01 K/uL (0.00-0.30); Basophils Percent Auto 0.1 % (0.0-3.0); Hematocrit 32.2 % (33.0-51.0); Hemoglobin* 10.2 gm/dL (12.0-16.0); Immature Granulocytes Abs Auto 0.06 K/uL (0.00-0.30); Immature Granulocytes Pct Auto 0.6 %; Lymphocytes Percent Auto 7.2 % (20-44); Mean Corpuscular HGB Conc 32 gm/dL (32-36); Mean Corpuscular Hemoglobin 26 pg (26-34); Mean Corpuscular Volume 83 fL (80-100); Monocytes Percent Auto 2.6 % (0.0-11.0); Neutrophils Percent Auto 89.5 % (42.0-72.0); Platelet Count* 200 K/uL (140-440); Potassium* 4.5 mmol/L (3.6-5.1); RDW Coefficient of Variation % 15.3 % (11.5-15.5); Red Blood Count 3.87 m/uL (4.00-5.20); White Blood Count* 9.64 K/uL (4.50-11.00)
[2024-01-31 06:57] LABS: Creatinine* 0.8 mg/dL (0.5-1.5); Est. Creatinine Clearance* 85.97; Estimated Glomerular Filt Rate 89 ml/min
[2024-01-31 06:58] LABS: Blood Urea Nitrogen* 20 mg/dL (7-30); INR 1.07 (0.91-1.10); Prothrombin Time 14.6 Seconds
[2024-01-31 07:00] LABS: Slide Review Reflex No
[2024-01-31 08:06] VITALS: BP 128/65; PULSE 74; RESP 20; TEMP 36.4; O2SAT 94
--- NOTE | 2024-01-31 08:24 | PM.ORPN ---
Subjective Subjective Time Seen by Provider: 08:27 Date Seen: 01/31/24 Principal diagnosis: Status post right knee replaced Interval history: Alea has some burning over the right knee, otherwise she is comfortable. She will discharge to home today. Ortho Exam Narrative Exam Narrative: Alert and oriented x3. Patient is in no acute distress. Converses without labored breathing. Hearing is grossly intact. Ambulates with a walker. Examination of the right lower extremity shows the dressing is intact. Ecchymosis proximally. She states burning over the knee, otherwise CMS intact right lower extremity. Calves are soft and nontender. Quad strength 5/5. Const Vital Signs, click to edit/add: Vital Signs - 24 hr 01/30/24 10:34 01/30/24 11:30 01/30/24 11:35 Temperature 97.9 F Pulse Rate 75 67 67 Pulse Rate [Pulse Oximeter] Respiratory Rate 20 16 16 Blood Pressure 139/69 121/62 115/63 Blood Pressure [Right Arm] Pulse Oximetry 98 100 98 Oxygen Delivery Method Room Air Nasal Cannula Nasal Cannula Oxygen Flow Rate 3 3 01/30/24 11:40 01/30/24 16:15 01/30/24 16:20 Temperature 96.7 F L 97.6 F Pulse Rate 67 68 64 Pulse Rate [Pulse Oximeter] Respiratory Rate 16 16 16 Blood Pressure 110/66 116/72 117/71 Blood Pressure [Right Arm] Pulse Oximetry 100 95 92 Oxygen Delivery Method Nasal Cannula Room Air Room Air Oxygen Flow Rate 3 01/30/24 16:25 01/30/24 16:30 01/30/24 16:35 Temperature Pulse Rate 65 65 63 Pulse Rate [Pulse Oximeter] Respiratory Rate 16 16 16 Blood Pressure 117/71 111/67 111/71 Blood Pressure [Right Arm] Pulse Oximetry 94 94 92 Oxygen Delivery Method Room Air Room Air Room Air Oxygen Flow Rate 01/30/24 16:40 01/30/24 16:45 01/30/24 16:51 Temperature 98.0 F Pulse Rate 63 63 62 Pulse Rate [Pulse Oximeter] Respiratory Rate 16 16 16 Blood Pressure 112/70 108/68 112/65 Blood Pressure [Right Arm] Pulse Oximetry 94 93 94 Oxygen Delivery Method Room Air Room Air Room Air Oxygen Flow Rate 01/30/24 17:00 01/30/24 17:15 01/30/24 17:30 Temperature 96.9 F L Pulse Rate 65 66 73 Pulse Rate [Pulse Oximeter] Respiratory Rate 16 16 16 Blood Pressure 123/71 116/62 98/47 L Blood Pressure [Right Arm] Pulse Oximetry 95 96 92 Oxygen Delivery Method Room Air Room Air Room Air Oxygen Flow Rate 01/30/24 17:45 01/30/24 18:00 01/30/24 18:30 Temperature 98.1 F Pulse Rate 72 72 77 Pulse Rate [Pulse Oximeter] Respiratory Rate 16 16 16 Blood Pressure 108/70 108/73 121/74 Blood Pressure [Right Arm] Pulse Oximetry 92 91 91 Oxygen Delivery Method Room Air Room Air Room Air Oxygen Flow Rate 01/30/24 19:00 01/30/24 20:00 01/30/24 21:00 Temperature 97.4 F L 97.8 F Pulse Rate 80 86 81 Pulse Rate [Pulse Oximeter] Respiratory Rate 16 16 16 Blood Pressure 118/67 137/73 134/70 Blood Pressure [Right Arm] Pulse Oximetry 92 91 91 Oxygen Delivery Method Room Air Room Air Room Air Oxygen Flow Rate 01/30/24 22:00 01/30/24 23:00 01/30/24 23:00 Temperature 97.2 F L Pulse Rate 84 86 Pulse Rate [Pulse Oximeter] Respiratory Rate 16 16 16 Blood Pressure 114/80 124/78 Blood Pressure [Right Arm] Pulse Oximetry 93 93 Oxygen Delivery Method Room Air Room Air Room Air Oxygen Flow Rate 01/30/24 23:00 01/31/24 03:00 01/31/24 08:06 Temperature 97.3 F L 97.1 F L Pulse Rate Pulse Rate [Pulse Oximeter] 81 75 Respiratory Rate 28 H 24 20 Blood Pressure Blood Pressure [Right Arm] 106/58 L 104/59 L Pulse Oximetry 92 96 94 Oxygen Delivery Method Room Air Room Air Room Air Oxygen Flow Rate 01/31/24 08:06 Temperature 97.6 F Pulse Rate Pulse Rate [Pulse Oximeter] 74 Respiratory Rate 20 Blood Pressure Blood Pressure [Right Arm] 128/65 Pulse Oximetry 94 Oxygen Delivery Method Room Air Oxygen Flow Rate Assessment and Plan Assessment and plan (1) Status post right knee replacement: Problem details: - 01/30/2024, [facility], Dr. Owusu. Status: Acute Assessment and Plan: Plan for discharge is today to home if they meet discharge criteria. DVT prophylaxis includes Eliquis twice daily x1 month she has this at home she states, Compression stockings as needed for swelling. She also uses pneumo boots which are helpful for swelling. Frequent ambulation, every hour throughout the day. Remove dressing in 1 week. Observe wound and phone Orthopedics with any questions or concerns Return to clinic in 1 week for a wound check Return to clinic in 6 weeks with surgeon Minimize narcotic use. Wean off and discontinue soon as possible. Activities as tolerated. No strenuous activity. Outpatient physical therapy as scheduled. Ice and elevate the operative extremity. No restriction on ice. She has oxycodone at home and Tylenol. She needs [facility]. This has been completed.
[2024-01-31] MEDS: METOPROLOL SUCCINATE (XL) 25 MG TAB PO (08:46)
[2024-01-31] MEDS: lisinopriL 5 MG TABLET PO (08:46)
[2024-01-31] MEDS: CITALOPRAM HYDROBROMIDE 20 MG TABLET 30 MG PO (08:47)
[2024-01-31] MEDS: SENNOSIDES 1 TAB TABLET 2 TAB PO (08:47)
[2024-01-31] MEDS: PREGABALIN 100 MG CAPSULE 300 MG PO (08:47)
[2024-01-31] MEDS: APIXABAN 5 MG TABLET 2.5 MG PO (08:47)
[2024-01-31] MEDS: INSULIN GLARGINE,HUM.REC.ANLOG 100 UNIT/ML INSULN.PEN 80 UNIT SUBCUT (08:48)
[2024-01-31] MEDS: INSULIN ASPART 100 UNIT/ML 20 UNIT SUBCUT (08:49)
[2024-01-31] MEDS: INSULIN ASPART 100 UNIT/ML SUBCUT (08:50)
== END 2024-01-31 10:28 | disposition home or self-care (01) ==
LOC: OR 10:09 → MEDSURG 16:18
PROVIDERS: Visit Provider Orthopaedic Surgery
PROC: (CPT 27447; principal; 2024-01-30 11:45)
DX: M17.11 Unilateral primary osteoarthritis, right knee (principal); G89.18 Other acute postprocedural pain; Z68.43 Body mass index [BMI] 50.0-59.9, adult; I10 Essential (primary) hypertension; E66.01 Morbid (severe) obesity due to excess calories; Z86.711 Personal history of pulmonary embolism; Z79.01 Long term (current) use of anticoagulants; E11.649 Type 2 diabetes mellitus with hypoglycemia without coma; Z79.85 Long-term (current) use of injectable non-insulin antidiabetic drugs; Z79.4 Long term (current) use of insulin; Z96.652 Presence of left artificial knee joint
CPT/HCPCS: 27447; 01402; 36415; 64447; 64454; 73560; 76942; 82565; 82962; 84132; 84295; 84520; 85025; 85610; 97110; 97116; 97162; 97165; 97535; A9270; C1776; J0690; J1100; J1170; J1815; J2250; J2405; J2704; J2795; J3010; J7120

== ENCOUNTER 2024-02-12 18:55 | Emergency (ER) | payer MEDICARE, MEDICAID, SELFPAY ==
[2024-02-12 19:09] VITALS: BP 149/64; PULSE 84; RESP 20; TEMP 36.7; O2SAT 95; BMI 58.3
--- NOTE | 2024-02-12 19:28 | ED.NAVMDI ---
HPI - Nausea/Vomiting/Diarrhea General Chief complaint: Nausea/Vomiting Stated complaint: nausea - post op Time Seen by Provider: 02/12/24 19:00 History of Present Illness HPI Narrative: This 53-year-old female is morbidly obese and weighs approximately 400 lb. She had a right knee replacement surgery a couple weeks ago and has been taking an antibiotic for a cellulitis that is developed below her right knee down toward her ankle. She comes in today stating that she has nausea and dry heaves and has not been able to take food and liquid. She did take some Zofran last night which did not help with these symptoms. She was initially prescribed Keflex and now has been taking clindamycin. She wonders if her nausea symptoms are related to the antibiotic. She arrives here with normal vital signs. Related Data Home Medications ?Medication ?Instructions ?Recorded ?Confirmed atorvastatin 40 mg tablet 40 mg PO HS 07/31/23 02/07/24 citalopram 20 mg tablet 30 mg PO DAILY 07/31/23 02/07/24 cyclobenzaprine 10 mg tablet 10 mg PO TID PRN muscle spasm 07/31/23 02/07/24 dihydroergotamine 1 mg/mL 0.5 - 1 mg IM DAILY PRN 07/31/23 02/07/24 injection solution esomeprazole magnesium 40 mg 40 mg PO DAILY 07/31/23 02/07/24 capsule,delayed release insulin glargine 100 unit/mL (3 80 unit subcut BID 07/31/23 02/07/24 mL) subcutaneous pen (Lantus Solostar U-100 Insulin) levothyroxine 200 mcg tablet 200 mcg PO QAM 07/31/23 02/07/24 lisinopril 5 mg tablet 5 mg PO DAILY 07/31/23 02/07/24 loratadine-pseudoephedrine ER 10 1 tab PO DAILY 07/31/23 02/07/24 mg-240 mg tablet,extended [id number] (Loratadine-D) metoprolol succinate 25 mg 25 mg PO DAILY 07/31/23 02/07/24 tablet,extended release 24 hr nystatin 100,000 unit/gram topical 1 applic topical TID PRN 07/31/23 02/07/24 powder pramipexole 0.25 mg tablet 0.75 - 1 mg PO HS 07/31/23 02/07/24 pregabalin 300 mg capsule 300 mg PO BID 07/31/23 02/07/24 tizanidine 4 mg tablet 4 mg PO HS 07/31/23 02/07/24 blood sugar diagnostic (Contour #10 ea 11/13/23 02/07/24 Next Test Strips) ketorolac 60 mg/2 mL intramuscular 30 - 60 mg IM DAILY PRN 11/13/23 02/07/24 solution ondansetron HCl 4 mg tablet 4 mg PO Q8H PRN nausea/vomiting 11/13/23 02/07/24 acetaminophen 500 mg tablet 1,000 mg PO Q6H PRN 11/20/23 02/07/24 cyproheptadine 4 mg tablet 4 mg PO QHS PRN 11/20/23 02/07/24 dulaglutide 4.5 mg/0.5 mL 4.5 mg subcut Q7D 11/20/23 02/07/24 subcutaneous pen injector (Trulicity) sodium fluoride 1.1 %-potassium 1 applic dental HS 11/21/23 02/07/24 nitrate 5 % dental paste (PreviDent 5000 Enamel Protect) insulin aspart 1 - 40 unit subcut TIDWM 01/30/24 02/07/24 (niacinamide)(U-100) 100 unit/mL(3 mL) subcutaneous pen (Fiasp FlexTouch U-100 Insulin) Previous Rx's ?Medication ?Instructions ?Recorded sennosides 8.6 mg tablet (Senna 17.2 mg (2 x 8.6 mg) PO BID PRN 11/21/23 Lax) constipation #100 tabs oxycodone 5 mg tablet 2.5 - 5 mg (0.5 - 1 x 5 mg) PO 11/29/23 Q4-6H PRN Pain #42 tabs sennosides 8.6 mg tablet (Senna 17.2 mg (2 x 8.6 mg) PO BID PRN 01/31/24 Lax) constipation #100 tabs cephalexin 500 mg capsule 500 mg PO QID #28 caps 02/05/24 oxycodone 5 mg tablet 5 mg PO Q6H PRN pain #42 tabs 02/07/24 clindamycin HCl 300 mg capsule 300 mg PO TID #21 caps 02/09/24 metoclopramide HCl 10 mg tablet 10 mg PO Q6H PRN nausea and 02/12/24 (Reglan) vomiting #15 tabs sulfamethoxazole 800 1 tab PO BID 7 days #14 tabs 02/12/24 mg-trimethoprim 160 mg tablet (Bactrim DS) Allergies Allergy/AdvReac Type Severity Reaction Status Date / Time cefprozil [From Cefzil] Allergy Severe Hives Verified 02/07/24 09:38 isosorbide [From Imdur] Allergy Severe Rash Verified 02/07/24 09:38 latex Allergy Severe Hives Verified 02/07/24 09:38 levofloxacin Allergy Severe Diarrhea Verified 02/07/24 09:38 erythromycin base Allergy Verified 02/07/24 09:38 Iodinated Contrast Media Allergy Verified 02/07/24 09:38 iodine Allergy Verified 02/07/24 09:38 Review of Systems Status of ROS: Reports: 10 or more systems reviewed and unremarkable except as noted in History and below Narrative: Constitutional: No fevers, no weight gain or loss. Eyes: No discharge. No vision changes. HENT: No congestion, no sore throat, no ear pain. Cardiovascular: No chest pain, no palpitations. Respiratory: No shortness of breath, no wheezes, no cough. Gastrointestinal: No abdominal pain, no vomiting, no diarrhea. Genitourinary: No dysuria, no hematuria. Musculoskeletal: Right knee replacement surgery 2 weeks ago. Skin: No rashes, no pruritis. Erythema on the anterior aspect of her right lower extremity extending from her ankle upward toward her knee. Neurological: No dizziness, weakness, sensory change, speech change. Endo/Heme/Allergies: No bruising or bleeding. No polydipsia. Pysch: no suicidality, no anxiety, no insomnia. All other systems reviewed and are negative. [facility] Medical History (Updated 02/12/24 @ 19:54 by Saturnino Esquivel MD) Health care directive on file ?Z78.9 - Other specified health status (ICD-10) Osteoarthritis of right knee ?M17.11 - Unilateral primary osteoarthritis, right knee (ICD-10) Polypharmacy ?Z79.899 - Other strategic consultant (current) drug therapy (ICD-10) Paroxysmal SVT (supraventricular tachycardia) (07/28/21) ?I47.10 - Supraventricular tachycardia, unspecified (ICD-10) Localized osteoarthritis of left knee (04/06/20) ?M17.12 - Unilateral primary osteoarthritis, left knee (ICD-10) Hypertension (04/23/11) ?I10 - Essential (primary) hypertension (ICD-10) Hyperlipidemia (03/14/14) ?E78.5 - Hyperlipidemia, unspecified (ICD-10) GERD (gastroesophageal reflux disease) (11/26/08) ?K21.9 - Gastro-esophageal reflux disease without esophagitis (ICD-10) Gastroparesis (11/26/08) ?K31.84 - Gastroparesis (ICD-10) Esophageal stricture (02/25/22) ?K22.2 - Esophageal obstruction (ICD-10) Esophageal reflux (03/02/06) ?K21.9 - Gastro-esophageal reflux disease without esophagitis (ICD-10) 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) ?U09.9 - Post COVID-19 condition, unspecified (ICD-10) Vitamin D deficiency (09/10/10) ?E55.9 - Vitamin D deficiency, unspecified (ICD-10) Varicose veins of lower extremities with other complications (09/18/13) ?I83.893 - Varicose veins of bilateral lower extremities with other complications (ICD-10) Tear of medial meniscus of left knee, current (04/06/20) ?S83.242A - Other tear of medial meniscus, current injury, left knee, initial encounter (ICD-10) Restless legs (11/26/08) ?G25.81 - Restless legs syndrome (ICD-10) Primary open angle glaucoma (POAG) of both eyes, mild stage (03/08/21) ?H40.1131 - Primary open-angle glaucoma, bilateral, mild stage (ICD-10) Postoperative hypothyroidism (03/25/15) ?E89.0 - Postprocedural hypothyroidism (ICD-10) Peroneal tendon tear ?S86.319A - Strain of muscle(s) and tendon(s) of peroneal muscle group at lower leg level, unspecified leg, initial encounter (ICD-10) PE (pulmonary thromboembolism) (11/22/17) ?I26.99 - Other pulmonary embolism without acute cor pulmonale (ICD-10) Thyroid cancer (08/13/07) ?C73 - Malignant neoplasm of thyroid gland (ICD-10) Other specified glaucoma (05/24/21) ?H40.89 - Other specified glaucoma (ICD-10) Obesity, unspecified (11/26/08) ?E66.9 - Obesity, unspecified (ICD-10) Myopia of left eye with astigmatism and presbyopia (02/06/17) ?H52.12 - Myopia, left eye (ICD-10) ?H52.202 - Unspecified astigmatism, left eye (ICD-10) ?H52.4 - Presbyopia (ICD-10) Migraine (03/17/07) ?G43.909 - Migraine, unspecified, not intractable, without status migrainosus (ICD-10) Microalbuminuria due to type 2 diabetes mellitus (10/01/21) ?E11.29 - Type 2 diabetes mellitus with other diabetic kidney complication (ICD-10) ?R80.9 - Proteinuria, unspecified (ICD-10) Lumbosacral spondylosis without myelopathy ?M47.817 - Spondylosis without myelopathy or radiculopathy, lumbosacral region (ICD-10) Lumbosacral radiculopathy ?M54.17 - Radiculopathy, lumbosacral region (ICD-10) Lower respiratory tract infection (10/17/19) ?J22 - Unspecified acute lower respiratory infection (ICD-10) Low back pain ?M54.50 - Low back pain, unspecified (ICD-10) Hyperopia of right eye with astigmatism and presbyopia (02/06/17) ?H52.01 - Hypermetropia, right eye (ICD-10) ?H52.201 - Unspecified astigmatism, right eye (ICD-10) ?H52.4 - Presbyopia (ICD-10) Depression, major, single episode, severe (07/28/21) ?F32.2 - Major depressive disorder, single episode, severe without psychotic features (ICD-10) COVID-19 virus infection (10/23/19) ?U07.1 - COVID-19 (ICD-10) Complex tear of lateral meniscus of left knee as current injury (04/06/20) ?S83.272A - Complex tear of lateral meniscus, current injury, left knee, initial encounter (ICD-10) Chronic pain ?G89.29 - Other chronic pain (ICD-10) Bilateral occipital neuralgia (08/13/20) ?M54.81 - Occipital neuralgia (ICD-10) Morbid obesity ?E66.01 - Morbid (severe) obesity due to excess calories (ICD-10) Recurrent urinary tract infection ?N39.0 - Urinary tract infection, site not specified (ICD-10) Depression ?F32.A - Depression, unspecified (ICD-10) SVT (supraventricular tachycardia) ?I47.10 - Supraventricular tachycardia, unspecified (ICD-10) Hypokalemia ?E87.6 - Hypokalemia (ICD-10) Hx of coronary angiogram ?Z98.890 - Other specified postprocedural states (ICD-10) COVID-19 long hauler ?U09.9 - Post COVID-19 condition, unspecified (ICD-10) Esophageal stricture ?K22.2 - Esophageal obstruction (ICD-10) Paroxysmal SVT (supraventricular tachycardia) ?I47.10 - Supraventricular tachycardia, unspecified (ICD-10) Uncontrolled type 2 diabetes mellitus DVT (deep venous thrombosis) ?I82.409 - Acute embolism and thrombosis of unspecified deep veins of unspecified lower extremity (ICD-10) Pulmonary embolism ?I26.99 - Other pulmonary embolism without acute cor pulmonale (ICD-10) Hyperlipidemia ?E78.5 - Hyperlipidemia, unspecified (ICD-10) Hypertension ?I10 - Essential (primary) hypertension (ICD-10) Gastroparesis ?K31.84 - Gastroparesis (ICD-10) Papillary thyroid carcinoma ?C73 - Malignant neoplasm of thyroid gland (ICD-10) GERD (gastroesophageal reflux disease) ?K21.9 - Gastro-esophageal reflux disease without esophagitis (ICD-10) Surgical History (Updated 02/08/24 @ 00:01 by Background Daemon) Status post left knee replacement (11/21/23) ?Z96.652 - Presence of left artificial knee joint (ICD-10) Status post right knee replacement (01/30/24) ?Z96.651 - Presence of right artificial knee joint (ICD-10) History of total left knee replacement (11/21/23) ?Z96.652 - Presence of left artificial knee joint (ICD-10) History of phacoemulsification of cataract of both eyes with intraocular lens implantation ?Z98.41 - Cataract extraction status, right eye (ICD-10) ?Z98.42 - Cataract extraction status, left eye (ICD-10) ?Z96.1 - Presence of intraocular lens (ICD-10) Hx of thyroidectomy ?E89.0 - Postprocedural hypothyroidism (ICD-10) Hx of hysterectomy ?Z90.710 - Acquired absence of both cervix and uterus (ICD-10) Hx of hemorrhoidectomy ?Z98.890 - Other specified postprocedural states (ICD-10) Hx of cholecystectomy ?Z90.49 - Acquired absence of other specified parts of digestive tract (ICD-10) Family History Father Diabetes Cancer Depression Heart disease Sister Diabetes Depression High cholesterol High blood pressure Seizure disorder Paternal Grandfather Coronary artery disease Brother High blood pressure Mother High blood pressure Paternal Grandmother Thyroid disease Social History What is your current living situation?: I presently have a place to live Problems where you live: no known problems Problems where you live details: NA In the past 12 months, utilities in danger of being shut off: no In past 12 months, lack of transportation kept you from medical appts, meetings, work, or getting things needed for daily living: no In the past 12 mos, have been you worried that your food would run out before you had money to buy more?: never true In the past 12 mos, the food you bought just didn't last and you didn't have money to buy more?: never true Smoking Status: Current some day smoker What tobacco products do you use: cigarettes Do you use any of these nicotine containing products: None How often do you have a drink containing alcohol: never AUDIT-C Alcohol total score: 0 Non-prescribed substance use: denies use Caffeine: Yes How often does anyone, including family, friends and others, physically hurt you: never How often does anyone, including family, friends and others, insult or talk down to you: never How often does anyone, including family, friends and others, threaten you with harm: never How often does anyone, including family, friends and others, scream or curse at you: never Are you using contraception or practicing any form of control: No Exam Narrative: Exam Narrative: Constitutional: Well-developed, well-nourished, no acute distress. HEENT: Normocephalic, atraumatic. Neck: Normal range of motion. Nontender. Supple. Heart: Regular. No murmurs. Normal rate. Intact distal pulses. Lungs: Clear to auscultation. No chest discomfort. No wheezes, rhonchi, or rales. Abdomen: Normal bowel sounds. Nontender. No rebound tenderness. Genitalia: Deferred. Back: No midline tenderness. Normal range of motion. Extremities: Surgical wound on the right knee for knee replacement 2 weeks ago appears to be healing normally. There is erythema on anterior aspect of her right lower extremity extending from her ankle upwards toward her knee approximately [address] knee. Skin: Intact. No rash. Warm. No erythema or pallor. Neurologic: No altered sensation. No weakness. Alert and oriented. Psychiatric: No suicidality. No anxiety or depression. No insomnia. Nursing notes and vitals signs are reviewed. Const: Vital Signs, click to edit/add: Vital Signs - 24 hr 02/12/24 19:09 Temperature 98.0 F Pulse Rate [Right Pulse Oximeter] 84 Respiratory Rate 20 Blood Pressure [Ri ght Upper Arm] 149/64 H Pulse Oximetry 95 Oxygen Delivery Me thod Room Air Course Vital Signs Vital signs: Initial Vital Signs Temperature 98.0 F 02/12/24 19:09 Temperature Source Temporal Artery Scan 02/12/24 19:09 Pulse Rate 84 02/12/24 19:09 Respiratory Rate 20 02/12/24 19:09 Blood Pressure 149/64 H 02/12/24 19:09 Blood Pressure Mean 92 02/12/24 19:09 Blood Pressure Position Sitting 02/12/24 19:09 Pulse Oximetry 95 02/12/24 19:09 Oxygen Delivery Method Room Air 02/12/24 19:09 Vital Signs Temperature 98.0 F 02/12/24 19:09 Pulse Rate 84 02/12/24 19:09 Respiratory Rate 20 02/12/24 19:09 Blood Pressure 149/64 H 02/12/24 19:09 Pulse Oximetry 95 02/12/24 19:09 Oxygen Delivery Method Room Air 02/12/24 19:09 Temperature 98.0 F 02/12/24 19:09 Pulse Rate 84 02/12/24 19:09 Respiratory Rate 20 02/12/24 19:09 Blood Pressure 149/64 H 02/12/24 19:09 Pulse Oximetry 95 02/12/24 19:09 Oxygen Delivery Method Room Air 02/12/24 19:09 MDM - Nausea/Vomiting/Diarrhea MDM Narrative Medical decision making narrative: This patient arrives with report of nausea symptoms. She is taking clindamycin for a diagnosis of cellulitis on her right lower extremity. This is an area below her right knee where she had knee replacement surgery 2 weeks ago roughly. She arrives here with normal vital signs. An IV was established where she did receive a L of normal saline and 10 mg of Reglan. Labs are ordered and results are pending at the end of my shift. The oncoming physician look after results. This patient should be able to return home unless unexpected findings occur in the lab results. I did provide prescription for Reglan and Bactrim. It is possible that her nausea symptoms are related to clindamycin. She can discontinue clindamycin and start Bactrim. She does have a follow-up appointment in a couple days with her physician. Discharge Plan Discharge Clinical Impression: Nausea Cellulitis Qualifiers: Site of cellulitis: extremity Site of cellulitis of extremity: lower extremity Laterality: right Qualified Code(s): L03.115 - Cellulitis of right lower limb Condition: Stable Additional Instructions: Discontinued clindamycin and began taking Bactrim as prescribed. Use Reglan also as needed and directed for nausea symptoms. Follow up with MD as scheduled or return if worsening. Prescriptions: New sulfamethoxazole-trimethoprim [Bactrim DS] 800-160 mg tablet 1 tab PO BID 7 Days Qty: 14 0RF metoclopramide HCl [Reglan] 10 mg tablet 10 mg PO Q6H PRN (Reason: nausea and vomiting) Qty: 15 0RF No Action (DME) Contour Next Test Strips Strip See Rx Instructions .ROUTE 3XD Qty: 10 Rx Instructions: As directed ketorolac 60 mg/2 mL solution 30 - 60 mg IM DAILY PRN Hold Instructions: Resume on 12/19/23. Confer with orthopedic surgery about re-starting on 12/19/2023 ondansetron HCl 4 mg tablet 4 mg PO Q8H PRN (Reason: nausea/vomiting) cephalexin 500 mg capsule 500 mg PO QID Qty: 28 0RF oxycodone 5 mg tablet 5 mg PO Q6H PRN (Reason: pain) Qty: 42 0RF Rx Instructions: minimize and DC STARR oxycodone 5 mg tablet 2.5 - 5 mg PO Q4-6H MDD 6 tabs per day PRN (Reason: Pain) Qty: 42 0RF Hold Instructions: Resume on 02/13/24. Rx Instructions: Minimize. Discontinue as soon as possible atorvastatin 40 mg tablet 40 mg PO HS citalopram 20 mg tablet 30 mg PO DAILY cyclobenzaprine 10 mg tablet 10 mg PO TID PRN (Reason: muscle spasm) dihydroergotamine 1 mg/mL solution 0.5 - 1 mg IM DAILY PRN esomeprazole magnesium 40 mg capsule,delayed release(DR/EC) 40 mg PO DAILY insulin glargine [Lantus Solostar U-100 Insulin] 100 unit/mL (3 mL) insulin pen 80 unit subcut BID tizanidine 4 mg tablet 4 mg PO HS loratadine-pseudoephedrine [Loratadine-D] 10-240 mg tablet extended release 24 hr 1 tab PO DAILY pramipexole 0.25 mg tablet 0.75 - 1 mg PO HS levothyroxine 200 mcg tablet 200 mcg PO QAM lisinopril 5 mg tablet 5 mg PO DAILY metoprolol succinate 25 mg tablet extended release 24 hr 25 mg PO DAILY nystatin 100,000 unit/gram powder 1 applic topical TID PRN pregabalin 300 mg capsule 300 mg PO BID acetaminophen 500 mg tablet 1,000 mg PO Q6H PRN Hold Instructions: Resume on 02/27/24. cyproheptadine 4 mg tablet 4 mg PO QHS PRN Trulicity 4.5 mg/0.5 mL pen injector 4.5 mg subcut Q7D sodium fluoride-pot nitrate [PreviDent 5000 Enamel Protect] 1.1-5 % paste 1 applic dental HS sennosides [Senna Lax] 8.6 mg Tablet 17.2 mg PO BID PRN (Reason: constipation) Qty: 100 0RF Fiasp FlexTouch U-100 Insulin 100 unit/mL (3 mL) insulin pen 1 - 40 unit subcut TIDWM sennosides [Senna Lax] 8.6 mg Tablet 17.2 mg PO BID PRN (Reason: constipation) Qty: 100 0RF clindamycin HCl 300 mg capsule 300 mg PO TID Qty: 21 0RF Follow Up/Referrals: Provider,Not a Local [Primary Care Provider] -
--- OUTSIDE RECORDS SUMMARY | 2024-02-12 19:38 | XMS_ITS | Clinical Summary ---
Author Organization [facility] Address [address] [place] [address] Care Team Providers Care Arch Cushion Skiving Machine Operator Name Role Phone Kell Pan PA-C Primary [...] for each transition of care or referral. [employer] Allergies Active Allergy Reactions Criticality Noted Date [...] of medial meniscus of left knee, current Family History Medical History Relation Name Comments [...] Comments Blood Pressure 109/68 07/05/2022 11:20 AM SHANK BONER Pulse 79 07/05/2022 11:20 AM SHANK BONER Temperature - - Respiratory Rate 17 07/05/2022 11:20 AM SHANK BONER Oxygen Saturation - - Inhaled Oxygen Concentration [...] 2023 04/02/2022, 10/08/2021, 05/04/2021, Additional history exists Diabetes: HGBA1C 09/12/2023 06/12/2023, , 03/07/2023, Additional history exists Influenza (#1) 2024 DTaP/Tdap/Td (5 - Tdap) 06/12/2027 06/12/20 17, [...] A1C (EXTERNAL RESULT) Routine 06/12/2023 9:20 AM SHANK BONER from Last 3 Months or Most Recently Relevant to Health Maintenance Care Teams Arch Cushion Skiving Machine Operator Relationship Specialty Start Date End Date Kell Pan PA-C PCP - General Physician Urban Planner 02/06/20
--- OUTSIDE RECORDS SUMMARY | 2024-02-12 19:38 | XMS_ITS | Referral Summary ---
Author Organization [facility] Address [address] [place] [address] Care Team Providers Care Rn Perinatal Name Role Phone Elsewhere, Pcp Primary Care Provider Unavailabl e Source Comments Patient records contain information from all sites at [facility]. For routine questions regarding patient records, call [phone] during business hours, M-F 8:00 AM - 5:00 PM Central Time. Record requests for emergency care only can be directed to [phone] at any time.[facility] Encounters Date Type Department Care Team Description 01/26/2024 9:11 AM CDT - 01/26/2024 11:59 PM CDT Hospital Encounter Division of Pain Medicine in [place], [place] [address] [place] [phone] Amelia Salgado APRN, BALL MILL MIXER, D.N.P. Pain Low Back Unspecified; Spondylosis Lumbar Without Myelopathy Discharge Disposition: Home or Self Care 01/16/2024 Clinical Communication Division of Pain Medicine in [place], [place] [address] [place] [phone] Amelia Salgado APRN, BALL MILL MIXER, D.N.P. 01/04/2024 Clinical Communication Division of Pain Medicine in [place], [place] [address] [place] [phone] Amelia Salgado APRN, BALL MILL MIXER, D.N.P. 12/22/2023 1:00 PM CDT Virtual Visit Division of Pain Medicine in [place], [place] [address] [place] [address] Amelia Salgado APRN, BHANU, D.N.P. Pain Low Back Unspecified (Primary Dx); Spondylosis Lumbar Without Myelopathy; Myofascial Pain Syndrome 12/21/2023 1:00 PM CDT Clinical Communication Virtual Review in [place], [place] 200 [place] [address] Pre-visit Intake from Last 3 Months Allergies [...] mL 31 gauge x 11/29 syringe daily. 0 Active scopolamine base (TRANSDERM SCOP) 1 mg over [address] 1 patch on the skin every third day as needed. 2 Active acetaminophen (TYLENOL) 500 mg tablet Take 2 tablets by mouth as needed. Active blood sugar diagnostic strips (Blood Glucose Test Strips) Test 3 times per day. Contour Next test JUDE ASCE 2 Active blood-glucose meter kit Dispense meter, test strips, lancets covered by pt ins. E11.9 NIDDM type II - Test 4 times/day. Reason: High A1C 1 Active dihydroergotamine (DHE) 1 mg/mL injection Inject 0.5-1 mg intramuscularly as needed. 2 Active esomeprazole (NexIUM) [address] capsule daily. 3 Active Lantus Solostar U-100 Insulin 100 unit/mL (3 mL) injection 2 (two) times a day. 3 Active insulin lispro 100 unit/mL injection 3 (three) times a day. 3 Active lancets Test 4 times per day. 1 Active levothyroxine (SYNTHROID, LEVOTHROID) 200 mcg tablet daily. 3 Active lisinopriL (PRINIVIL,ZESTRIL) 5 mg tablet Take 5 mg by mouth daily. 3 Active lorata-dine D 10-240 mg per 24 hr tablet Take 1 tablet by mouth at bedtime. 3 Active metoprolol succinate (TOPROL-XL) 25 mg 24 hr tablet Take 25 mg by mouth daily. 2 Active nystatin (NYSTOP) 100,000 unit/gram powder Apply 1 strip topically as needed. 1 Active ondansetron (ZOFRAN) 4 mg tablet as needed. 1 Active oxyCODONE-acetamino phen (PERCOCET) 5-325 mg per tablet Take 1 tablet by mouth as needed. 2 Active UltiCare Pen Needle 31 gauge x 5/16 needle USE FOR ADMINISTERING INSULIN AT HOME 3 Active pramipexole (MIRAPEX) 0.25 mg tablet Take 3-4 Tablets (0.75-1 mg) by mouth at bedtime. 3 Active citalopram (CeleXA) 20 mg tablet Take 30 mg by mouth every morning. 3 Active Trulicity 4.5 mg/0.5 mL injection Inject 4.5 mg under the skin once a week. 3 Active polyethylene glycol (Miralax) 17 gram/dose oral powder Take 17 g by mouth daily. 3 Active BD PrecisionGlide 25 gauge x 1 needle as needed. 4 Active BD Filter Needle-5 Micron 19 x 1 1/2 needle as needed. 4 Active Monoject Regular Luer 3 mL syringe as needed. 4 Active tiZANidine (ZANAFLEX) 4 mg tablet Take 1 tablet (4 mg total) by mouth at bedtime. 90 tablet 3 4 Active pregabalin (LYRICA) 300 mg capsule Take 1 capsule (300 mg total) by mouth 2 (two) times a day. 180 capsule 3 4 Active oxyCODONE (ROXICODONE) 5 mg immediate release tablet Take 5 mg by mouth as needed. Active senna 8.6 mg tablet Take 8.6 mg by mouth at bedtime as needed for constipation. 4 Active sodium fluoride-pot nitrate 1.1-5 % paste Apply 1 Application to teeth at bedtime. 4 Active atorvastatin (Lipitor) 40 mg tablet Take 40 mg by mouth daily. 4 Active cyclobenzaprine (FLEXERIL) 10 mg tablet Take 10 mg by mouth as needed. 4 Active blood sugar diagnostic strips 1 test by other route 3 (three) times a day. 4 Active cyproheptadine (PERIACTIN) 4 mg tablet Take 4 mg by mouth as needed. 4 Active ketorolac (TORADOL) 30 mg/mL injection Inject 30 mg intramuscularly as needed for pain. 4 Active dulaglutide (TRULICITY) 4.5 mg/0.5 mL injection Inject 4.5 mg under the skin every 7 (seven) days. 4 Active insulin lispro, Carbohydrate Count, 100 unit/mL insulin pen Inject 40 Units under the skin as needed. 4 Active Hospital, Clinic, or Other Facility Administered Medication Ordered Dose Route Frequency Start Date End Date Status lactated ringersIndications:Spondylos is Lumbar Without Myelopathy 20 mL/hr IV Continuous 12/02/2022 Active lactated ringersIndications:Spondylos is Lumbar Without Myelopathy 20 mL/hr IV Continuous 12/05/2022 Active Lactated Ringer'sIndications:Spondylo sis Lumbar Without Myelopathy 20 mL/hr IV Continuous 01/26/2024 Active Active Problems No known active problems Social History Tobacco Use Types Packs/Day Years Used Date Smoking Tobacco: Never Passive Smoke Exposure: Current Smokeless Tobacco: Never Tobacco Cessation:Counseling Given: Not Answered Alcohol Use Standard Drinks/Week Comments Not Currently 0 (1 standard drink = 0.6 oz pur e alcohol) Maybe 1-2 drinks a year [facility] Utilities Answer Date Recorded In the past 12 months has th e electric, gas, oil, or water company threatened to shut off services in your home? No 12/17/2023 Humiliation, Afraid, Rape, and Kick questionnair e [...] How often do you attend chur or lutheran services? Never 09/27/2022 Do you belong to any clubs o r organizations such as restorationism groups, unions, fraternal or athletic groups, or [...] and heating? Not hard at all 01/05/2023 [facility] [place] of Occupat ional Health - Occupational Stress [...] to strenuous exercise (like a brisk walk)? 2 days 12/17/2023 On average, how many minutes do you engage in exercise at this level? 40 min 12/17/2023 Hunger Vital Sign Answer Date Recorded Within the past 12 months, y ou worried that your food would run out before you got the money to buy more. Never true 12/17/19 24 Within the past 12 months, t he food you bought just didn't last and you didn't have money to get more. Never true 12/17/2023 PRAPARE - Transportation Answer Date Re corded In the past 12 months, has l ack of transportation kept you from medical appointments or from getting medications? No 08/2023 In the past 12 months, has l ack of transportation kept you from meetings, work, or from getting things needed for daily living? No 12/17/2023 Nutrition Answer Date Recorded On average, how many serving s of fruits and vegetables do you eat per day (serving size is equal to 1 cup or approximately the size of a tennis ball)? 0-2 12/17/2023 Dental Answer Date Recorded Dental: Regular Dentist Yes 09/28/19 Employment Answer Date Recorded Employment status Employed but not working due t o illness or injury 12/17/2023 Housing Stability Answer Date Recorded What is your living situation today? I have a [facility] place to live 12/17/2023 Education Answer Date Recorded What is the [...] Sign Reading Time Taken Comments Blood Pressure 106/53 01/26/2024 10:38 AM CDT Pulse 76 01/26/2024 10:38 AM CDT Temperature 36.7 ??C (98.1 ??F) 01/26/2024 9:30 AM CD T Respiratory Rate 12 01/26/2024 10:38 AM CDT Oxygen Saturation 96% 01/26/2024 10:38 AM CDT Inhaled Oxygen Concentration - - Weight 157 kg (346 lb 12.5 oz) 10/04/2022 9:10 A M CDT Height 175.5 cm (5' 9.09) 10/04/2022 9:10 AM CD T Body Mass Index 51.07 10/04/2022 9:10 AM CDT Plan of Treatment Upcoming Encounters Date Type Department Care Team (Late st Contact Info) Description 03/12/2024 10:00 AM CDT Procedure visit Division of Pain Medicine in [place], [place] [address] [place] [address] Amelia Salgado APRN, BALL MILL MIXER, D.N.P. [address] [place] [address] Medical Devices Implanted Type Area Manager Entry Device Identifier Shelf Expiration Date Model / Serial / Lot Knee Implant-11/21/19 24 Implanted:0 01/2024 (Quantity not on file) Knee Implant Left: Knee Procedures Procedure Name Priority Date/Time Associated Diagnosis Comments FL LUMBAR SPINE RADIOFREQUENCY DENERVATION Routine 01/26/2024 10:32 AM CDT Pain Low Back 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 GLUCOSE POCT, B Routine 01/26/2024 9:32 AM CDT from Last 3 Months Results * FL Lumbar Spine Radiofrequency Denervation (01/26/2024 10:32 AM CDT) Narrative MMODAL - 01/26/2024 10:30 AM CDT Robert Gibbons M.D. ? 01/26/2024 10:41 AM FL Lumbar Spine Radiofrequency Denervation Performed by: Robert Gibbons M.D. Authorized by: Amelia Salgado APRN, CNS, D.NShamikaPShamika ?? Care team members present 1. Brie Estes L.P.N. PROCEDURE SUMMARY Indications: Spondylosis without myelopathy Pre-procedural pain: 01/23 Post-procedural pain: 01/23 Site: lumbar Lumbar: medial branch radiofrequency Radiofrequency ablation of the Left L4-L5, Left L5-S1, Right L4-L5 [...] SEDATION MEDICATIONS Midazolam (mg): 2 Fentanyl (mcg): 100 INJECTED MEDICATIONS The injected medication(s) listed was divided equally between the identified injection location(s) Total volume of injectate (mL): 18 Total steroid in injectate (mg): 0 ?? 12 mL BUPivacaine 0.5 % (5 mg/mL) 6 mL lidocaine 10 mg/mL (1 %) PROCEDURE DETAILS ?? Radiofrequency ablation - lumbar (see below): ?? Complications: no apparent complications ?? Radiofrequency ablation - lumbar: Using fluoroscopy, the junction of the transverse process and superior articulating process of the appropriate levels were identified and marked. Using fluoroscopic guidance, the curved RF cannula was advanced to each target. This was confirmed using PA, lateral and oblique fluoroscopic views. Motor testing was performed at 2Hz up to 2.0 volts, and the measured tissue impedances were satisfactory. With final needle positioning, there was no evidence of radicular stimulation. Prior to lesioning, 1 ml of 2% lidocaine was injected at each site. Lesioning was performed at 85 degrees Celsius for 105 seconds. After RF treatment, each site received local anesthetic as the needles were withdrawn from the skin. The patient tolerated the procedure well and there were no apparent complications. After appropriate observation, the patient was dismissed from the clinic in good condition under their own power. ?? ADDITIONAL PROCEDURE COMMENTS Tolerated well. No [...] APRN, D.N.P. FLUOR O GUIDED PAIN PROCEDURES Performing Organization Address [facility] de Phone Number MMODAL NA * (ABNORMAL) Glucose, POCT (01/26/2024 9:32 AM CDT) Glucose, POCT, B 152(H) 70 - 140 mg/dL 01/26/2024 9:49 AM CDT PCMO Site Capillary 01/26/2024 9:49 AM CDT [facility] Blood 01/26/2024 9:32 AM CDT 01/26/2024 9:49 AM CDT Unknown Provider LAB POCT ORDERABLES- MANUAL Performing Organization Address [facility] Co de Phone Number POC [facility] [address] [place] [phone] [place], [place] [id number] [facility] POC [address] [place] [address] from Last 3 Months Advance Directives For more information, please contact: [phone] Documents on File Type Date Recorded Patient Director Energy Expl anation Advance Directives 10/05/2022 8:01 PM Arlen Rincon HCPOA/ADVOCATE/AGENT/R EPRESENTATIVE/SURROGAT E Healthcare Agents on File Name Relationship Healthcare Agent Relationship Communication Arlen Madrid Mother Health Care Agent [email or web address] [place] Brother First Alternate Health Care Agent Elena Rincon Friend Second Alternate Health Care Agent Care Teams Rn Perinatal Relationship Specialty Start Date End Date Elsewhere, Pcp PCP - General Internal Medicine 09/30/22
--- OUTSIDE RECORDS SUMMARY | 2024-02-12 19:38 | XMS_ITS | Clinical Summary ---
Author Organization [facility] Address [address] [place] [address] Care Team Providers Care Competency Evaluated Nurse Aide Name Role Phone Elsewhere, Pcp Primary Care Provider Unavailabl e Source Comments Patient records contain information from all sites at [facility]. For routine questions regarding patient records, call [phone] during business hours, M-F 8:00 AM - 5:00 PM Central Time. Record requests for emergency care only can be directed to [phone] at any time.[facility] Allergies Active Allergy Reactions Criticality Noted [...] 31 gauge x 5/16 syringe daily. 0 Active scopolamine base (TRANSDERM [...] Active Active Problems No known active problems Encounters Date Type Department Care Team Description 01/26/2024 9:11 AM CDT - 01/26/2024 11:59 PM CDT Hospital Encounter Division of Pain Medicine in [address] [phone] Amelia Salgado APRN, CABINET MAKER, D.N.P. 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 01/04/2024 Clinical Communication Division of Pain Medicine in [address] [phone] Amelia Salgado APRN, CABINET MAKER, D.N.P. 12/22/2023 1:00 PM CDT Virtual Visit Division of Pain Medicine in [address] [phone] Amelia Salgado APRN, CABINET MAKER, D.N.P. Pain Low Back Unspecified (Primary Dx); Spondylosis Lumbar Without Myelopathy; Myofascial Pain Syndrome 12/21/2023 1:00 PM CDT Clinical Communication Virtual Review in [address] [phone] Pre-visit Intake from Last 3 Months Family [...] e alcohol) Maybe 1-2 drinks a year [facility] Utilities Answer Date Recorded In the past 12 months has [facility] [employer], gas, oil, or water [employer] threatened to shut off services in your [...] often do you attend chur ch or jewish services? Never 09/27/2022 Do you belong to any clubs o r organizations such as buddhist groups, unions, fraternal or athletic groups, or [...] have a [facility] place to live 12/17/2023 Education Answer [...] Procedure visit Division of Pain Medicine in [place], [place] [address] [place] [address] Amelia Salgado APRN, CABINET MAKER, D.N.P. [address] [place] [address] Health Maintenance Due Date Last Done Comments CT Colonography 1971 Cologuard 1971 Colonoscopy 1971 Colorectal Cancer Screening 1971 FIT 1971 HIV Screening 1971 Hepatitis C Screening 1971 Mammogram 1971 Office Visit for Blood Pressure Check / Re-check 01/04/2023 10/04/2022 COVID-19 Vaccine ( season) 2023 04/02/2022, 10/08/2021, 05/04/2021, Additional history exists Depression Screening (Annual PHQ-2) 07/17/2023 Thyroid Stimulating Hormone (TSH) test for thyroid function 02/15/2024 02/14/2023, 09/23/2022, 12/17/2021, Additional history exists Influenza Vaccine (#1) 2024 Creatinine Level (Kidney Function Test) 06/12/2024 06/12/2023, 03/07/2023, 12/01/2022, Additional history exists Sodium Level 06/12/2024 06/12/2023, 082 08/2022, 12/01/2022, Additional history exists Potassium Level 01/16/2025 01/17/2024, 05/0 07/2023, 07/03/2023, Additional history exists Fasting Glucose for Diabetes Screening 01/25/2027 01/26/2024, 06/12/2023, 03/07/2023, Additional history exists DTaP,Tdap,and Td Vaccines (4 - Td or Tdap) 06/12/2027 06/12/2017, 12/08/2005, 12/08/2005, Additional history exists Lipid (Cholesterol) Screening 09/02/2027 09/02/2022, 02/25/2022, 01/22/2021, Additional history exists Hepatitis B Vaccines Completed 09/24/1999, 05/03/1999, 03/10/1999 Zoster Vaccines Completed 07/30/2021, 05/21/2021 Pneumococcal vaccine (0-64 years) Aged Out 09/08/2021, 01/31/2020 No longer eligibl e based on patient's age to complete this topic Medical Devices Implanted Type Area Enterprise Integration Developer Device Identifier Shelf Expiration Date Model / Serial / Lot Knee Implant-11/21/19 Implanted:0 01/2024 (Quantity not on file) Knee [...] Gibbons M.D. Authorized by: Amelia Salgado APRN, CABINET MAKER, D.N.P. ?? Care team members present 1. Brie Estes LShamikaPShamikaN. PROCEDURE SUMMARY Indications: Spondylosis without myelopathy Pre-procedural pain: 7 Post-procedural pain: 710 Site: lumbar Lumbar: medial branch radiofrequency Radiofrequency [...] loss: 0 Implants: 0 Amelia Salgado APRN, CABINET MAKER, D.N.P. FLUOR O GUIDED PAIN PROCEDURES MMODAL NA * (ABNORMAL) Glucose, POCT (01/26/2024 9:32 AM CDT) Glucose, POCT, B 152(H) 70 - 140 mg/dL 01/26/2024 9:49 AM CDT PCMO Site Capillary 01/26/2024 9:49 AM CDT PCMO Blood 01/26/2024 9:32 AM CDT 01/26/2024 9:49 AM CDT Unknown Provider LAB POCT ORDERABLES- MANUAL [facility]OC [facility] [address] [place] [address], [facility] PCMO [facility] POC [address] [place] [address] from Last 3 Months Advance Directives For more information, please contact: [phone] Documents on File Type Date Recorded Patient Real Estate Agency Licensee Expl anation Advance Directives 10/05/2022 8:01 PM Arlen Resendezrianna Rincon HCPOA/ADVOCATE/AGENT/R EPRESENTATIVE/SURROGAT E Healthcare Agents on File Name Relationship Healthcare Agent Relationship Communication Arlen [place] Mother Health Care Agent [email or web address] [place]ley [place] Brother First Alternate Health Care Agent Elena Rincon Friend Second Alternate Health Care Agent Care Teams Competency Evaluated Nurse Aide Relationship Specialty Start Date End Date Elsewhere, Pcp PCP - General Internal Medicine 09/30/22
--- OUTSIDE RECORDS SUMMARY | 2024-02-12 19:38 | XMS_ITS ---
Author Organization [facility] Address [address] [place] [address] Care Team Providers Care Clinical Social Worker Name Role Phone Unavailable Unavailable Unavailable Surgery Details Not on file Complications Check Surgery Details section. Procedure Estimated Blood Loss Check Surgery Details section. Procedure Findings Check Surgery Details section. Procedure Specimens Taken Check Surgery Details section.
--- OUTSIDE RECORDS SUMMARY | 2024-02-12 19:38 | XMS_ITS | Encounter Summary ---
Author Organization [facility] Address [address] [place] [address] Care Team Providers Care Wildlife Biology Internship Name Role Phone Elsewhere, Pcp Primary Care Provider Unavailabl e Encounter Details Date Type Department Care Team (Late st Contact Info) Description 01/16/2024 Clinical Communication Division of Pain Medicine in [place], [place] [address] [place] [phone] Amelia Salgado APRN, PROPERTY CONSULTANT, D.N.P. [address] [place] [address] Social History Tobacco Use Types Packs/Day Years Used Date Smoking Tobacco: Never Passive Smoke Exposure: Current Smokeless Tobacco: Never Alcohol Use Standard Drinks/Week Comments Not Currently 0 (1 standard drink = 0.6 oz pur e alcohol) Maybe 1-2 drinks a year [facility] Utilities Answer Date Recorded In the past 12 months has e electric, gas, oil, or water company [...] any clubs o r organizations such as nondenominational groups, unions, fraternal or athletic groups, or [...] hard at all 01/05/2023 [facility] of Occupat ional Health - Occupational Stress [...] your living situation today? I have a [facility] place to live 12/17/2023 Education Answer Date [...] Procedure visit Division of Pain Medicine in [place], [place] [address] [place] [phone] Amelia Salgado, DANYEL, PROPERTY CONSULTANT, D.N.P. [address] [place] [phone] documented as of this encounter Visit Diagnoses Not on filedocumented in this encounter Care Teams Wildlife Biology Internship Relationship Specialty Start Date End Date Elsewhere, Pcp PCP - General Internal Medicine 09/30/22 documented as of this encounter
--- OUTSIDE RECORDS SUMMARY | 2024-02-12 19:38 | XMS_ITS | Continuity of Care Document ---
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 Name Role Phone Lionel Rodas MD, Enoc Unavailable Unavailabl e Allergies, Adverse Reactions, Alerts Substance Reaction Status Criticality erythromycin base diarrhea Active No Informa tion erythromycin base Diarrhea Active No Informa tion erythromycin base diarrhea Active No Informa tion erythromycin base Diarrhea Active No Informa tion erythromycin base Diarrhea Active No Informa tion ATORVASTATIN CALCIUM Rash Active No Info rmation IODINE N/V and facial swelling Active No I nformation levofloxacin Diarrhea Active No Information DEXTROSE 5 % IN WATER Diarrhea Active No Inf ormation cefprozil Hives Active No Information SULFISOXAZOLE ACETYL Diarrhea Active No Info rmation ERYTHROMYCIN ETHYLSUCCINATE Diarrhea Active No Information latex Hives Active No Information Medications Medication Instructions Dosage Effective Dates (start - stop) Status Comments esomeprazole magnesium 40 mg capsule,delayed release take 1 capsule by ORAL route every day 40 MG - Active metoprolol succinate ER 50 mg tablet,extended release 24 hr take 1 tablet by oral route every day 50 MG - Active Xalatan 0.005 % eye drops instill 1 drop by ophthalmic route every day into affected eye(s) in the evening 1.00 drop - Active ondansetron HCl 4 mg tablet take 1 by Oral route every 4 hours as needed for nausea or vomiting - Active dihydroergotamine mesylate (bulk) powder 0.5-1mg im prn - Active TRAMADOL HCL (unknown strength) take 1 tablet by oral route every 4 - 6 hours as needed not to exceed 4 tablets per 24hrs Not Available - Active cyproheptadine 4 mg tablet take 1 tablet by oral route three times daily as needed - Active dicyclomine 20 mg tablet take 1 tablet by oral route 4 times every day as needed for abdominal pain - Active buspirone 10 mg tablet take 1 tablet by oral route 2 times every day as needed for anxiety 10 MG - Active Farxiga 5 mg tablet take 1 tablet by oral route every day in the morning 5 MG - Active Lantus Solostar U-100 Insulin 100 unit/mL (3 mL) subcutaneous pen take as directed - Active HUMALOG (unknown strength) inject by subcutaneous route once insulin pump Not Available - Active promethazine 25 mg tablet take 1 tablet by oral route every 6 hours as needed for nausea/vomiting - Active Celexa 40 mg tablet take 1 tablet by oral route every day 40 MG - Active Synthroid 200 mcg tablet take 1 tablet by oral route every day 200 MCG - Active atorvastatin 40 mg tablet take 1 tablet by oral route every day 40 MG - Active cyclobenzaprine 10 mg tablet take 1 tablet by oral route every day as needed 10 MG - Active Ultram 50 mg tablet take 1 tablet by oral route every 6 hours as needed - Active Claritin-D 24 Hour 10 mg-240 mg tablet,extended release Take 1-2 tablets by oral route every day - Active Zofran 4 mg tablet Take 1-2 tablets by oral route every 6 hours as needed for nausea/vomiting - Active Mirapex 0.25 mg tablet take 2-3 tablet b y oral route 2-3 hours before bedtime - Active Lyrica 225 mg capsule take 1 capsule by oral route 2 times every day 225 MG - Active tizanidine 4 mg capsule take 1 capsule b y oral route every day as needed 4 MG - Active PERCOCET (unknown strength) take 1 - 2 tablet by oral route every 6 hours as needed Not Available - Active Tylenol Extra Strength 500 mg tablet take 2 - 3 tablet by ORAL route every 4 - 6 hours as needed 1000 MG - Active Procedures Procedure Date Esophagoscopy; W/balloon Dilat 23 Established Level 4 Dilat Esoph-sound/bougie-1/mx 2 Established Level 4 Offic/outpt E&m Estab Mod-hi 2 22 Offic/outpt E&m Estab Low-mod 1 Offic/outpt E&m Estab Mod-hi 2 21 [facility] Endo; W/bx 1/mx Ugi Endo; W/insrt Guide Wire Established Level 3 Established Level 4 or 25-39 min 2019 [facility] End[facility]; W/bx 1/mx Offic/outpt E&m Estab Mod-hi 2 19 Offic/outpt E&m Estab Mod-hi 2 18 Offic/outpt E&m Estab Mod-hi 2 18 Offic/outpt E&m Estab Mod-hi 2 17 Offic/outpt E&m Estab Mod-hi 2 17 Offic/outpt E&m Estab Mod-hi 2 16 Offic/outpt E&m Estab Mod-hi 2 15 Offic/outpt E&m Estab Mod-nh 2 14 Ugi Endo; W/bx 1/mx Level Iv-surg Path Gross/micro 14 Offic/outpt E&m Estab Mod-hi 2 14 Offic/outpt E&m Estab Mod-hi 2 13 Offic/outpt E&m Estab Mod-hi 2 13 Ugi Endo; W/bx 1/mx Level Iv-surg Path Gross/micro 12 Offic/outpt E&m Estab Mod-hi 2 12 [id number] Routine Serum Collection Bld Ct; Hg/pltlt Ct Auto/compl 12 Hepatic Function Panel C-reactive Prot Lipase Iron Iron Binding Capacity Thyroid Stim Hormone Ugi Endo; W/bx 1/mx Level Iv-surg Path Gross/micro 11 Offic/outpt E&m New Mod-hi Routine Serum Collection [id number] Offic/outpt E&m Estab Low-mod 6 Routine Serum Collection Ugi Endo; Dx W/wo Collec Specm 06 Advance Directives Directive Yes / No Effective Date File Name No Information Encounters Encounter Description Practice Location Reason(s) For Visit Diagnoses Date Provider Providers Copied on Encounter [facility], [address] [address], [place], [id number], [place] tel:[phone] [facility] No Information 4 Lionel Stubbs. [address], [id number], [place]. tel:[phone] [facility], [address] [address], [place], [id number], [place] tel:[phone] [facility] No Information 3 Bettye Hanson. [address], [id number], [place]. tel:[phone] Referring Provider: Patricia Salinas, [address] [place], [address]. tel:[phone] [facility], [address] [address], [place], [id number], [place] tel:[phone] [facility] Dysphagia, unspecified type 3 Fabian Freire. [address], [id number], [place]. tel:[phone] [facility], [address] [address], [place], [id number], [place] tel:[phone] [facility] No Information 3 Fabian Freire. [address] [facility], [address], [id number], [place]. tel:[phone] Established Level 4 [facility], [address] [address], [place], [id number], [place] tel:[phone] [facility] GI Symptoms or Concerns (chief complaint) Gastro-esopha geal reflux disease without esophagitisDy sphagia, unspecified typeChronic idiopathic constipation 3 Fabian Freire. [address] [facility], [facility] [address], [place], [id number], [place]. tel:[phone] Clarissa Garcia MD. tel:[phone] ng Provider: Referral Self, USE FOR SELF REFERRALS. [facility], [address] [address], [place], [id number], [place] tel:[phone] [facility] No Information 3 Fabian Freire. [address] [facility], [address], [id number], [place]. tel:[phone] [facility], [address] [address], [place], [id number], [place] tel:[phone] [facility] No Information 2 Fabian Freire. [address] [facility], [facility] [address], [place], [id number], [place]. tel:[phone] Referring Provider: [place], [address] [place] [address], [address]. tel:[phone] [facility], [address] [address], [place], [id number], [place] tel:[phone] [facility] No Information 2 Lionel Stubbs. [address] [facility], [facility] [address], [place], [id number], [place]. tel:[phone] [facility], [address] [address], [place], [id number], [place] tel:[phone] [facility] Dysphagia, unspecified type 2 Fabian Freire. [address] [place] [address], [address], [id number], [place]. tel:[phone] Established Level 4 [facility], [address] [address], [place], [id number], [place] tel:[phone] [facility] GI Symptoms or Concerns (chief complaint) Chest pain, unspecified typeDysphagia , unspecified typeGastro-es ophageal reflux disease without esophagitis 2 Fabian Freire. [address] [place] [address], [id number], [place]. tel:[phone] Clarissa Garcia MD. tel:[phone] Provider: Referral Self, USE FOR SELF REFERRALS. [facility], [address] [address], [facility] [place], [id number], [place] tel:[phone] [facility] Constipation, chronic 2 Chase Walker. [address] [place] [address], [address], [id number], [place]. tel:[phone] Clarissa Garcia MD. tel:[phone] Offic/outpt E&m Estab Mod-hi 2 [facility], [address] [address], [facility] [place] [address], [place] tel:[phone] [facility] GI Symptoms or Concerns (chief complaint) Right sided abdominal painGastropar esisNauseaCon stipation, chronic 2 Chase Walker. [address] [place] [address], [address], [id number], [place]. tel:[phone] Clarissa Garcia MD. tel:[phone] Provider: Referral Self, USE FOR SELF REFERRALS. [facility], [address] [address], [place], [id number], [place] tel:[phone] [facility] No Information 2 Chase Walker. [address] [facility], [address], [place], [place], [id number], [place]. [phone] Offic/outpt E&m Estab Low-mod [facility], [address] [address], [place], [id number], [place] tel:[phone] [facility] GI Symptoms or Concerns (chief complaint) Gastro-esopha geal reflux disease without esophagitisNa useaMixed irritable bowel syndromeFatty (change of) liver, not elsewhere classifiedPos t-COVID syndromeColon cancer screening 1 No Information Clarissa Garcia MD. tel:[phone] Provider: Referral Self, USE FOR SELF REFERRALS. [facility], [address] [address], [place], [id number], [place] tel:[phone] [facility] No Information 1 No Information [facility], [address] [address], [place], [id number], [place] tel:[phone] [facility] Rectal bleeding 1 No Information [facility], [address] [address], [place], [id number], [place] tel:[phone] [facility] Blood per rectum 1 No Information Offic/outpt E&m Estab Mod-hi 2 [facility], [address] [address], [place], [id number], [place] tel:[phone] [facility] GI Symptoms or Concerns (chief complaint) Right lower quadrant abdominal painGastro-es ophageal reflux disease without esophagitisIr ritable bowel syndrome without diarrheaPost- COVID syndromeObesi ty, unspecified 1 No Information Clarissa Garcia MD. tel:[phone] Provider: Referral Self, USE FOR SELF REFERRALS. [facility], [address] [address], [place], [id number], [place] tel:[phone] [facility] No Information 1 Domingo Zamudio. [address] [facility], [address], [place], [place], [id number], [place]. tel:[phone] Referring Provider: Robb Fitzgerald, [address] [place] [address] [address], [place], [address]. tel:[phone] [facility], [address] [address], [place], [id number], [place] tel:[phone] [facility] No Information 1 No Information [facility], [address] [address], [place], [id number], [place] tel:[phone] [facility] Dysphagia, unspecified type 1 No Information Established Level 3 [facility], [address] [address], [place], [id number], [place] tel:[phone] [facility] Comment (chief complaint) Gastro-esopha geal reflux disease without esophagitisNo n-intractable vomiting with nausea, unspecified vomiting typeIrritable bowel syndrome without diarrheaPost- COVID syndromeFatty liver 1 No Information Clarissa Garcia MD. tel:[phone] ng Provider: Referral Self, USE FOR SELF REFERRALS. Established Level 4 or 25-39 min [facility], [address] [address], [place], [id number], [place] tel:[phone] [facility] GI Symptoms or Concerns (chief complaint) Gastro-esopha geal reflux disease without esophagitisNo n-intractable vomiting with nausea, unspecified vomiting typeFatty (change of) liver, not elsewhere classifiedEde ma, unspecified type 0 No Information Clarissa Garcia MD. tel:[phone] ng Provider: Referral Self, USE FOR SELF REFERRALS. [facility], [address] [address], [place], [id number], [place] tel:[phone] [facility] No Information 0 No Information Clarissa Garcia MD. tel:[phone] [facility], [address] [address], [place], [id number], [place] tel:[phone] [facility] No Information 0 No Information [facility], [address] [address], [place], [id number], [place] tel:[phone] [facility] No Information 0 No Information [facility], [address] [address], [place], [id number], [place] tel:[phone] [facility] Non-intractab le vomiting with nausea, unspecified vomiting type 0 No Information [facility], [address] [address], [place], [id number], [place] tel:[phone] [place] [address] No Information 0 No Information [facility], [address] [address], [place], [id number], [place] tel:[phone] [facility] Non-intractab le vomiting with nausea, unspecified vomiting type 0 No Information Offic/outpt E&m Estab Mod-hi 2 [facility], [address] [address], [place], [id number], [place] tel:[phone] [facility] GI Symptoms or Concerns (chief complaint) Gastro-esopha geal reflux disease without esophagitisIr ritable bowel syndrome without diarrheaFatty liver 9 No Information Clarissa Garcia MD. tel:[phone] ng Provider: Referral Self, USE FOR SELF REFERRALS. [facility], [address] [address], [place], [id number], [place] tel:[phone] [facility] No Information 9 No Information Offic/outpt E&m Estab Mod-hi 2 [facility], [address] [address], [place], [id number], [place] tel:[phone] [facility] GI Symptoms or Concerns (chief complaint) Chest pain, unspecified typeGastro-es ophageal reflux disease without esophagitisIr ritable bowel syndrome without diarrhea 8 No Information Clarissa Garcia MD. tel:[phone] ng Provider: Fabi GUERRERO, [address] [place] [address], [address]. tel:[phone] [facility], [address] [address], [place], [id number], [place] tel:[phone] [facility] Chest pain, unspecified type 8 No Information Offic/outpt E&m Estab Mod-hi 2 [facility], [address] [address], [place], [id number], [place] tel:[phone] [facility] GI Symptoms or Concerns (chief complaint) Gastro-esopha geal reflux disease without esophagitisFa tty liverDietary counseling and surveillance No Information Clarissa Garcia MD. tel:[phone] ng Provider: Fabi GUERRERO, [address] [place] [address], [address]. tel:[phone] Offic/outpt E&m Estab Mod-hi 2 [facility], [address] [address], [place], [id number], [place] tel:[phone] [facility] GI Symptoms or Concerns (chief complaint) Gastro-esopha geal reflux disease without esophagitisFa tty liverDietary counseling and surveillance No Information Clarissa Garcia MD. tel:[phone] ng Provider: Fabi GUERRERO, [address] [place] [address], [address]. tel:[phone] Offic/outpt E&m Estab Mod-hi 2 [facility], [address] [address], [place], [id number], tel:[phone] [facility] GI Symptoms or Concerns (chief complaint) Gastro-esopha geal reflux disease without esophagitisIr ritable bowel syndrome without diarrheaFatty liver 7 No Information Clarissa Garcia MD. tel:[phone] ng Provider: Fabi GUERRERO, [address] [place] [address], [address]. tel:[phone] Offic/outpt E&m Estab Mod-hi 2 [facility], [address] [address], [place], [place], [id number], tel:[phone] [facility] GI Symptoms or Concerns (chief complaint) Gastro-esopha geal reflux disease without esophagitisIr ritable bowel syndrome without diarrhea 6 No Information Clarissa Garcia MD. tel:[phone] ng Provider: Fabi GUERRERO, [address] [place] [address], [address]. tel:[phone] Offic/outpt E&m Estab Mod-hi 2 [facility], [address] [address], [place], [place], [id number], [place] tel:[phone] [facility] GI Symptoms or Concerns (chief complaint) Gastroesophag eal RefluxNon-alc oholic Fatty LiverObesityO besity, unspecifiedGa stro-esophage al reflux disease without esophagitisOt her specified diseases of liver 5 No Information Clarissa Garcia MD. tel:[phone] ng Provider: Fabi GUERRERO, [address] [facility], [place], [address]. tel:[phone] Offic/outpt E&m Estab Mod-hi 2 [facility], [address] [address], [place], [place], [id number], [place] tel:[phone] [facility] GI Symptoms or Concerns (chief complaint) Gastroesophag eal RefluxGastrop aresisDietary Surveil/couns el 4 No Information Clarissa Garcia MD. tel:[phone] ng Provider: Fabi GUERRERO, [address] [facility], [place], [address]. tel:[phone] [facility], [address] [address], [place], [id number], [place] tel:[phone] [facility] Gastritis W/o BleedGastroes ophageal Reflux [place]- 4 No Information Clarissa Garcia MD. tel:[phone] [facility], [address] [address], [place], [id number], [place] tel:[phone] [facility] Gastritis W/o BleedGastroes ophageal RefluxGastrit is W/o BleedGastroes ophageal Reflux Oct- 0 4 No Information Referring Provider: Referral Self, USE FOR SELF REFERRALS. Offic/outpt E&m Estab Mod-hi 2 [facility], [address] [address], [facility] [place], [id number], [place] tel:[phone] [facility] Gastroesophag eal RefluxGastrop aresis 4 No Information Referring Provider: Referral Self, USE FOR SELF REFERRALS. Offic/outpt E&m Estab Mod-hi 2 [facility], [address] [address], [facility] [place], [id number], [place] tel:[phone] [facility] GERD (chief complaint) Nausea & vomiting (chief complaint) Gastroesophag eal RefluxGastrop aresis Mar- 3 No Information Referring Provider: Clarissa Garcia MD [place], [address] [place] [address], [address]. tel:[phone] Offic/outpt E&m Estab Mod-hi 2 [facility], [address] [address], [facility] [place], [address], [place] tel:[phone] [facility] GERD (chief complaint) Gastropare sis (chief complaint) Gastroesophag eal RefluxGastrop aresis Oct- 2- 3 No Information Referring Provider: Clarissa Torres, [address] [place], [address]. tel:[phone] [facility], [address] [address], [place], [address], [place] tel:[phone] [facility] Gastroesophag eal RefluxGastroe sophageal RefluxGastrit is W/o BleedPolyp-in sary/rect/stom -unc BehGastroesop hageal RefluxGastric Polyp-benignG astritis W/o Bleed 2 No Information Referring Provider: Clarissa Torres, [address] [place], [address]. tel:[phone] Offic/outpt E&m Estab Mod-hi 2 [facility], [address] [address], [place], [address], [place] tel:[phone] [facility] Nausea & vomiting (chief complaint) Bloating (chief complaint) Gas (chief complaint) Epigastric PainNausea With VomitingNon-a lcoholic Fatty Liver 2 No Information Referring Provider: Clarissa Torres, [address] [place], [address]. tel:[phone] [facility], [address] [address], [place], [id number], [place] tel:[phone] [facility] Abd Pain Generalized 2 No Information Referring Provider: Clarissa Torres, [address] [place], [address]. tel:[phone] [facility], [address] [address], [place], [id number], [place] tel:[phone] [facility] Gastroesophag eal RefluxHiatal HerniaPolyp-i ntes/rect/sto m-unc BehGastroesop hageal RefluxHiatal HerniaGastrod uodenal Dis NosGastric Polyp-benign 1 No Information Referring Provider: Clarissa Torres, [address] [place] [address], [address]. tel:[phone] Offic/outpt E&m New Mod-hi [facility], [address] [address], [place], [id number], [place] tel:[phone] [facility] Abdominal pain (chief complaint) Belching (chief complaint) Nausea (chief complaint) Heartburn (chief complaint) Regurgitat ion (chief complaint) Gastroesophag eal RefluxEpigast merrick Pain 201 1 No Information Referring Provider: Referral Self, USE FOR SELF REFERRALS. Offic/outpt E&m Estab Low-mod [facility], [address] [address], [place], [id number], [place] tel:[phone] [facility] Gastroesophag eal RefluxNausea With Vomiting 6 No Information [facility], [address] [address], [place], [id number], [place] tel:[phone] [facility] Gastroesophag eal Reflux 6 Tonya John. [address], [id number], [place]. tel:[phone] Family History Family Member Type Diagnosis Age At Onset Father Problem (finding) gallbladder disease Father Problem (finding) Cholelithasis Father Problem (finding) Lymphoma Maternal aunt Problem (finding) Cholelithasis Maternal grandmother Problem (finding) Cholelithasis Mother Problem (finding) gallbladder disease Sister Problem (finding) celiac disease First degree family history Problem (finding) Bleeding on the brain Maternal aunt Problem (finding) cancer of the esophagu s Father Problem (finding) Cancer First degree family history Problem (finding) celiac d isease Father Problem (finding) Immunizations Vaccine Date Status Comments SARS-COV-2 (COVID-19) vaccin e, mRNA, spike protein, LNP, bivalent, preservative free, 30 mcg/0.3 mL dose, eliane-sucrose formulation administered Note: [facility] bi-direct ional interface ; Source: Other Registry SARS-COV-2 (COVID-19) vaccin e, mRNA, spike protein, LNP, bivalent booster, preservative free, 30 mcg/0.3 mL dose, eliane-sucrose formulation administered Note: [facility] bi-d irectional interface ; Source: Other Registry SARS-COV-2 (COVID-19) vaccin e, mRNA, spike protein, LNP, preservative free, 30 mcg/0.3mL dose, eliane-sucrose formulation administered Note: [facility] C bi- directional interface ; Source: Other Registry Prevnar 13 administered Note: [facility] bi-d irectional interface ; Source: Other Registry zoster vaccine recombinant administered N ote: [facility] bi-directional interface ; Source: Other Registry zoster vaccine recombinant administered N ote: [facility] bi-directional interface ; Source: Other Registry SARS-COV-2 (COVID-19) vaccin e, mRNA, spike protein, LNP, preservative free, 30 mcg/0.3mL dose administered Note: [facility] bi-direct ional interface ; Source: Other Registry SARS-COV-2 (COVID-19) vaccin e, mRNA, spike protein, LNP, preservative free, 30 mcg/0.3mL dose administered Note: [facility] bi-direct ional interface ; Source: Other Registry SARS-COV-2 (COVID-19) vaccin e, mRNA, spike protein, LNP, preservative free, 30 mcg/0.3mL dose administered Note: [facility] bi-direct ional interface ; Source: Other Registry Pneumovax 23 administered Note: [facility] bi-d irectional interface ; Source: Other Registry tetanus toxoid, reduced diphtheria toxoid, and acellular pertussis vaccine, adsorbed administered Note: [facility] b i-directional interface ; Source: Other Registry influenza virus vaccine, unspecified formulation administered Note: [facility] bi-di rectional interface ; Source: Other Registry diphtheria and tetanus toxoi ds, adsorbed for pediatric use administered Note: [facility] bi -directional interface ; Source: Other Registry tetanus and diphtheria toxoi ds, adsorbed, preservative free, for adult use (5 Lf of tetanus toxoid and 2 Lf of diphtheria toxoid) administered Note: [facility] bi-direct ional interface ; Source: Other Registry Arielx-B administered Note: [facility] bi-d irectional interface ; Source: Other Registry Yolandaerix-B administered Note: [facility] bi-d irectional interface ; Source: Other Registry Yolandaerix-B administered Note: [facility] bi-d irectional interface ; Source: Other Registry Payers Payer name Insurance type Covered libertarian ID Authormisaela carlykatina(s) [employer] [facility] [id number] Social History Type Description Quantity Date Captured Comments Sex Female Smoking Status No Information Chief Complaint And Reason For Visit No Information Reason For Referral Reason For Referral No Information Plan Of Treatment Date Type Action Status Goal Lifestyle education regardin g diet completed Goal Lifestyle education regardin g diet completed Goal Lifestyle education regardin g diet completed Referral Ordered: follow-up visit with 6 Months ordered Referral Ordered: Xray Abdomen Complete Appointment date/timeframe: 11/05/2021 ordered Referral Ordered: Colonoscopy Appointment date/timeframe: -today ordered Referral Ordered: HGB Appointment date/timeframe: 01/14/2021 ordered Referral Ordered: Ferritin Appointment date/timeframe: 01/14/2021 ordered Referral Ordered: Iron/TIBC Appointment date/timeframe: 01/14/2021 ordered Referral Ordered: EGD With Dilation Appointment date/timeframe: 12/04/2020 ordered Referral Ordered: MRI Brain Without Contrast Appointment date/timeframe: -today ordered Referral Ordered: EGD Appointment date/timeframe: 08/28/2019 ordered Referral Ordered: CT Abdomen And Pelvis WITH Contrast Appointment date/timeframe: 08/22/2019 ordered Referral Ordered: Xray Esophagus (Barium Swallow Study) Appointment date/timeframe: 04/12/2018 ordered Referral Ordered: CT Chest WITHOUT And WITH Contrast Appointment date/timeframe: 04/24/2018 ordered Referral Ordered: follow-up visit with Bhaskar Page MD 6 Months Appointment date/timeframe: 6 Months ordered Appointment Laura Madrid BOOKED History Of Present Illness Encounter Date Complaint History Of Prese nt Illness GI Symptoms or Concerns Laura is a 53-year-old female with a history of long COVID, chronic back pain, biliary dyskinesia, gastroesophageal reflux and esophageal stricture responsive to dilation, who returns to GI Clinic. Last dilation was a year ago and she is doing significantly better with minimal recurrence. Overall, she is quite happy with her overall status. She has been able to stop the Carafate and cut the Nexium down to once a day and this has been a significant improvement for her.She also has some chronic constipation. She is taking Colace for this intermittently, and she has noticed that as she has increased on her dosing of her medications for neuropathic pain that has gotten somewhat worse. We did discuss stopping the Colace instead starting MiraLax 1 packet daily. She will update me in a month with regard to how she is doing and we will re-evaluate this. Otherwise, doing well. GI Symptoms or Concerns Laura is a pleasant 51-year-old female who has been followed by Dr. Page for many, many years, who is status post cholecystectomy many years ago for biliary dyskinesia, has long COVID with infections x2 with post COVID fatigue and nausea as well as a history of gastroesophageal reflux, doing well with omeprazole twice daily up to more previous baseline of once daily. She did have upper endoscopy with dilation of Schatzki ring recently and her dysphagia completely resolved. She did have some gastric polyps, which we reviewed today as well.Previous CT scan did reveal some mild fatty liver disease as well as small periumbilical hernia, though no other acute pathology. She does have some mild right upper quadrant pain, which is longstanding as well and minimally bothersome. She overall has no acute complaints, but wanted to establish care with a new provider. GI Symptoms or Concerns She is a 51-year-old female who presents to clinic for evaluation of right-sided abdominal pain and nausea. This is my first time seeing her as a patient. She has a history of idiopathic gastroparesis with most recent gastric emptying study in 2013 showing normal emptying. She also has a history of gastroesophageal reflux disease, fatty liver disease, history of chronic constipation. She was previously followed by Dr. Page, who is now retired. She is status post cholecystectomy 22 years ago for dyskinesis.She developed COVID-19 infection back in 2019 and has had long COVID" with chronic fatigue and post COVID nausea. She developed a 2nd COVID-19 infection in July 2021 with a worsening of chronic nausea and increased right-sided abdominal pain, acute on chronic. Since then, her appetite has been very poor and she reports a 30 pound unintentional weight loss. She eats a very small amount throughout the day. She has not weighed herself recently, but believes she h GI Symptoms or Concerns Laura Madrid is a very pleasant 51-year-old female with a history of GERD, chronic nausea, fatty liver associated with obesity, microvascular angina, mixed irritable bowel syndrome and post-COVID infection syndrome (dating to 2019).She also has a prior history of idiopathic gastroparesis, but most recent gastric emptying study in August 2013 demonstrated normal gastric emptying.GERD is well controlled on esomeprazole. The patient denies significant heartburn, dysphagia, odynophagia, epigastric pain, or vomiting. An esophagogastroduodenoscopy in October 2020 demonstrated a partially-obstructing lower esophageal ring, a small diaphragmatic hernia and fundic gland polyps. The lower esophageal ring was dilated to 51-Swedish diameter with resolution of dysphagia.Chronic nausea has improved. The patient has had no significant vomiting. A portion of the nausea may be related to post-COVID syndrome. The patient currently is using ondansetron 4 mg daily as needed with t GI Symptoms or Concerns Laura Madrid is a very pleasant 50-year-old female with a history of GERD, fatty liver associated with obesity, microvascular angina, mixed irritable bowel syndrome, and post COVID infection syndrome.She also has a prior history of idiopathic gastroparesis, but most recent gastric emptying study in 2013 demonstrated normal gastric emptying.In August 2020, she complained of intermittent dysphagia. Esophagogastroduodenoscopy on October 28, 2020, demonstrated a partially obstructing lower esophageal ring, a small diaphragmatic hernia, and fundic gland polyps. Esophageal dilatation to 51-Swedish diameter was undertaken. Biopsies of the esophagus (mid and distal) were normal without evidence for eosinophilic esophagitis. Dysphagia has improved following esophageal dilatation.Over the preceding 2 weeks, she has noted intermittent right lower quadrant abdominal pain associated with low-grade fever. Evaluation by primary care included a urinalysis which was negative. L Comment This is a teleme dicine consultative visit, which the patient consented to. Total consultative time was 25 minutes.Laura Madrid is a very pleasant 50-year-old female with a history of GERD, fatty liver associated with obesity, microvascular angina, mixed irritable bowel syndrome, and [id number] syndrome.She also has a prior history of idiopathic gastroparesis, but most recent gastric emptying study in November 2013 demonstrated normal gastric emptying.GERD is currently well controlled with esomeprazole 40 mg twice daily. She currently denies heartburn, regurgitation, dysphagia, or abdominal pain. However, recently she has developed recurrent headaches associated with post-COVID syndrome and has been treated with prednisone and Toradol. On this regimen, she developed epigastric pain which lasted for 1 to 2 weeks, now resolved. There is no melena or hematochezia. She is currently tapering prednisone and has discontinued Toradol.Post-COVID syndrome has be GI Symptoms or Concerns This is a telemedicine virtual consultative visit which the patient consented to. Total consultative time is 25 minutes.Laura Madrid is a very pleasant 50-year-old female with a history of GERD, fatty liver associated with obesity, microvascular angina, and recent COVID infection.She also has a prior history of idiopathic gastroparesis, but the most recent gastric emptying study in November 2013 demonstrated normal gastric emptying.The patient currently is having difficulty with post COVID fatigue, dyspnea and recently lower extremity edema. She describes volume overload with swelling of the lower extremities and upper extremities. She has been given diuretics and recently was diuresed approximately 15 pounds. However, this was associated with significant hypokalemia (potassium 2.6), which required intravenous replacement.Gastrointestinal symptoms including GERD are currently controlled. She is on esomeprazole 40 mg twice daily. She currently denies heartburn, GI Symptoms or Concerns Laura Madrid is a very pleasant 49-year-old female with a history of GERD, fatty liver associated with obesity and recurrent chest pain felt secondary to microvascular angina. She also has a prior history of idiopathic gastroparesis, but most recent gastric emptying study in November 2013 demonstrated normal gastric emptying.Upper endoscopy in October 2013 demonstrated reactive gastropathy and was otherwise negative. Biopsies of the esophagus and stomach were normal (negative for H. pylori).GERD is well controlled on esomeprazole 40 mg twice daily. She denies heartburn, regurgitation, abdominal pain, nausea or vomiting.She has gained weight recently and is morbidly obese. She had difficulty with a fracture of her foot, which required surgical repair. She has a prior history of fatty liver disease. She currently is abstinent of alcohol. GI Symptoms or Concerns The symp toms began 3 months ago and generally lasts 3 Months. The symptoms are reported as being moderate. The symptoms occur daily. The location is Abdomen. She states the symptoms are chronic. Laura Madrid is a very pleasant 48-year-old female with a history of GERD, fatty liver associated with obesity, and recent chest pain. She also has a prior history of idiopathic gastroparesis, but most recent gastric emptying study in November 2013 demonstrated normal gastric emptying.Upper endoscopy in October 2013 demonstrated reactive gastropathy and was otherwise negative. Biopsies of the esophagus and stomach were normal (negative for H. pylori).She also has a history of migraine headaches, papillary thyroid cancer status post resection, hypertension, and DVT/PE. She currently is on anticoagulation for DVT/PE.She has developed chest pain recently. An extensive cardiovascular evaluation including coronary angiography was negative. The patient was placed on Imdur with res GI Symptoms or Concerns The symp toms began 10 years ago and generally lasts 10 Years. The symptoms are reported as being moderate. The symptoms occur daily. The location is Abdomen. She states the symptoms are chronic. Laura Madrid is a pleasant 47-year-old female with a history of GERD and fatty liver. She had a prior diagnosis of idiopathic gastroparesis, but most recent gastric emptying study in November 2013 demonstrated normal gastric emptying.Upper endoscopy in October 2013 demonstrated reactive gastropathy and was otherwise negative. Biopsies of the esophagus and stomach were normal (negative for H. pylori).She has a history of migraine headaches, papillary thyroid cancer status post resection, hypertension, and recent DVT/PE. She is on anticoagulation following DVT/PE.She is currently doing well in regards to GERD. She is on esomeprazole 40 mg daily and [id number] Zegerid. She occasionally takes esomeprazole twice daily. There has been no heartburn, regurgitation, dysphagia, GI Symptoms or Concerns The symp toms began 10 years ago and generally lasts 10 Years. The symptoms are reported as being moderate. The symptoms occur daily. The location is Abdomen. She states the symptoms are chronic. Laura Madrid is a pleasant 46-year-old female with a history of GERD and a previous diagnosis of idiopathic gastroparesis. She also has morbid obesity. A gastric emptying study in 2005 demonstrated 31% retention at four hours. However, repeat study in November 2013 demonstrated normal gastric emptying.Upper endoscopy in October 2013 demonstrated mild reactive gastropathy and was otherwise negative. Biopsies of the esophagus and stomach were normal (negative for H. pylori).She is currently doing well. She is taking esomeprazole 40 mg twice daily. She has discontinued Reglan, which was previously instituted for worsening nausea and vomiting associated with recurrent sinusitis. She is off of antibiotics for the sinusitis.She denies nausea, vomiting, abdominal pain, change in horacio GI Symptoms or Concerns The symp toms began 5 years ago and generally lasts 5 Years. The symptoms are reported as being moderate. The symptoms occur daily. The location is Abdomen. She states the symptoms are chronic. Laura Madrid is a pleasant 46-year-old female with a history of GERD and a previous diagnosis of idiopathic gastroparesis. She also has morbid obesity. A gastric emptying study in 2005 demonstrated 31% retention at four hours. However, a repeat study in November 2013 demonstrated normal gastric emptying.Upper endoscopy in October 2013 demonstrated mild reactive gastropathy and was otherwise negative. Biopsies were negative for H pylori.She recently was diagnosed as having sinusitis. She was placed on Augmentin which worsened nausea, vomiting, and upper abdominal pain. Symptoms have been controlled with esomeprazole 40 mg twice daily and institution of Reglan 10 mg before meals and at bedtime. Nausea and vomiting have been markedly improved on this regimen. Augmentin has since been GI Symptoms or Concerns The symp toms began 8 years ago and generally lasts 8 Years. The symptoms are reported as being moderate. The symptoms occur daily. The location is Abdomen. She states the symptoms are chronic. Laura Madrid is a very pleasant 45-year-old female with a history of GERD and a previous diagnosis of idiopathic gastroparesis. She also has morbid obesity. A gastric emptying study in 2005 demonstrated 31% retention at four hours. However, a repeat study in Nov, 2013 demonstrated normal gastric emptying.The patient is currently doing well on Zegerid once to twice daily for control of GERD. She denies heartburn, dysphagia, epigastric pain, nausea, or vomiting. Upper endoscopy in October, demonstrated mild reactive gastropathy and was otherwise negative. Biopsies were negative for H. pylori.Bowel habits have been regular. She denies hematochezia or melena.She continues with morbid obesity with weight today of 361 pounds. GI Symptoms or Concerns The symp toms began 6 years ago and generally lasts 6 Years. The symptoms are reported as being moderate. The symptoms occur daily. The location is Abdomen. She states the symptoms are chronic. Laura Madrid is a 44-year-old female with a history of GERD and a previous diagnosis of idiopathic gastoparesis. She also has morbid obesity. A gastric emptying study in 2005 demonstrated 31% retention at four hours. However, a repeat study in November 2013 demonstrated normal gastric emptying.The patient currently is doing well on Zegerid once to twice daily. This controls regurgitation and heartburn. Upper endoscopy in October 2013 demonstrated mild reactive gastropathy and was otherwise negative.Nausea and vomiting have been minimal. The patient has lost weight recently, and she believes this is related to situational stress, as her father suddenly earlier in the year. She feels she has lost approximately 40 pounds but continues to be morbidly obese with current weight 351 GI Symptoms or Concerns The symp toms began 6 years ago and generally lasts 6 Years. The symptoms are reported as being moderate. The symptoms occur daily. The location is Abdomen. She states the symptoms are chronic. Laura Madrid is a 43-year-old female with a history of GERD and previous diagnosis of idiopathic gastroparesis. She also has morbid obesity. A gastric emptying study in 2005 demonstrated 31% retention at 4 hours. However, a gastric emptying study performed in November 2013 was normal with 2% retention at 4 hours. However, the patient had continued metoclopramide 10 mg twice daily prior to the most recent gastric emptying study.She has had difficulty with recurrent nausea and vomiting. Because of this, upper endoscopy was performed in October 2013 which demonstrated very mild reactive gastropathy and was otherwise negative. Biopsies of the esophagus were normal.The patient currently has had severe problems with headaches. She has undergone neurologic evaluation and has had injectio Functional Status Date Functional Assessmen t No Information Instructions Date Instruction Additional Infor chasity constipation cleanse instruction s Related to Constipation, chronic 1. Schedule abdomina l x-ray.2. If a large amount of colonic stool is seen, recommended constipation cleanse.3. She could also try using the stool softener every day.4. Remain on Nexium, but take this 30 minutes before eating.5. Colonoscopy was recommended, but deferred by the patient currently.6. Schedule a GI clinic followup closer to her home and I did recommend that she meet a physician at the next appointment.7. Follow up with her primary provider regarding monitoring of thyroid hormone and diabetic control. Related to Right sided abdominal pain please take Nexium 3 0 minutes before eatingplease take stool softener dailyI recommend a colonoscopy but you'd like to wait for now Related to Constipation, chronic Lifestyle education regarding di et Related to Dietary counseling and surveillance Lifestyle education regarding di et Related to Dietary counseling and surveillance Lifestyle education regarding di et Related to Dietary surveillance and counseling Assessments Type Assessment Date No Information Patient Care Teams Name Effective Dates (start - stop) Status Members No Information
--- OUTSIDE RECORDS SUMMARY | 2024-02-12 19:38 | XMS_ITS | Encounter Summary ---
Author Organization [facility] Address [address] [place] [address] Care Team Providers Care Head Of Transport Logistics Name Role Phone Elsewhere, Pcp Primary Care Provider Unavailabl e Reason for Referral * Outpatient (Routine) - Closed Specialty Diagnoses / Procedures Referred By Contac t Referred To Contact Diagnoses Pain Low Back 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 Procedures [place] Lumbar Spine Radiofrequency Denervation ND DEST LUMB/SAC FACET JT ND DEST LUMB/SAC FACET JT Amelia English APRN, WELL REACTIVATOR OPERATOR, D.N.P. 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 [address] [place] [address] [facility] Referral ID Status Reason Start Date Expiration Date Visits Re quested Visits Authorized [id number] Closed 01/04/2024 05/02/2024 1 1 Encounter Details Date Type Department Care Team (Latest Contact Info) Description 01/26/2024 9:11 AM CDT - 01/26/2024 11:59 PM CDT Hospital Encounter Division of Pain Medicine in [place], [place] [address] [place] [address] Amelia Salgado, DANYEL, WELL REACTIVATOR OPERATOR, D.N.P. [address] [place] [address] Pain Low Back Unspecified; Spondylosis Lumbar Without Myelopathy Discharge Disposition: Home or Self Care Social History Tobacco Use Types Packs/Day Years Used Date Smoking Tobacco: Never Passive Smoke Exposure: Current Smokeless Tobacco: Never Alcohol Use Standard Drinks/Week Comments Not Currently 0 (1 standard drink = 0.6 oz pur e alcohol) Maybe 1-2 drinks a year [facility] Utilities Answer Date Recorded In the [...] often do you attend chur ch or rastafari services? Never 09/27/2022 Do you belong to [...] and heating? Not hard at all 01/05/2023 [facility] - Occupational [...] living situation today? I have a [facility] place to live 12/17/2023 Education Answer [...] 2 tablets by mouth as needed. atorvastatin (Lipitor) 40 mg tablet Take 40 mg by mouth daily. 07/31/2023 BD Filter Needle-5 Micron 19 x 1 1/2 needle as needed. 08/21/2023 BD PrecisionGlide 25 gauge x 1 needle as needed. 08/21/2023 blood sugar diagnostic strips (Blood Glucose Test Strips) Test 3 times per day. Contour Next test JUDE ASCE 12/20/2021 blood sugar diagnostic strips 1 test by other route 3 (three) times a day. 11/13/2023 blood-glucose meter kit Dispense meter, test strips, lancets covered by pt ins. E11.9 NIDDM type II - Test 4 times/day. Reason: High A1C 09/01/2020 citalopram (CeleXA) 20 mg tablet Take 30 mg by mouth every morning. 12/09/2022 cyclobenzaprine (FLEXERIL) 10 mg tablet Take 10 mg by mouth as needed. 07/31/2023 cyproheptadine (PERIACTIN) 4 mg tablet Take 4 mg by mouth as needed. 11/20/2023 dihydroergotamine (DHE) 1 mg/mL injection Inject 0.5-1 mg intramuscularly as needed. 08/03/2021 dulaglutide (TRULICITY) 4.5 mg/0.5 mL injection Inject 4.5 mg under the skin every 7 (seven) days. 11/20/2023 esomeprazole (NexIUM) [address] capsule daily. 09/22/2022 insulin lispro 100 unit/mL injection 3 (three) times a day. 09/02/2022 insulin lispro, Carbohydrate Count, 100 unit/mL insulin pen Inject 40 Units under the skin as needed. 07/31/2023 insulin syringe-needle U-100 0.3 mL 31 gauge x 5/16 syringe daily. 01/28/2020 ketorolac (TORADOL) 30 mg/mL injection Inject 30 mg intramuscularly as needed for pain. 11/13/2023 lancets Test 4 times per day. 09/01/2020 Lantus Solostar U-100 Insulin 100 unit/mL (3 mL) injection 2 (two) times a day. 09/04/2022 levothyroxine (SYNTHROID, LEVOTHROID) 200 mcg tablet daily. 09/04/2022 lisinopriL (PRINIVIL,ZESTRIL) 5 mg tablet Take 5 mg by mouth daily. 09/04/2022 lorata-dine D 10-240 mg per 24 hr tablet Take 1 tablet by mouth at bedtime. 09/04/2022 metoprolol succinate (TOPROL-XL) 25 mg 24 hr tablet Take 25 mg by mouth daily. 07/06/2022 Monoject Regular Luer 3 mL syringe as needed. 08/21/2023 nystatin (NYSTOP) 100,000 unit/gram powder Apply 1 strip topically as needed. 03/09/2021 ondansetron (ZOFRAN) 4 mg tablet as needed. 12/07/2020 oxyCODONE (ROXICODONE) 5 mg immediate release tablet Take 5 mg by mouth as needed. oxyCODONE-acetaminoph en (PERCOCET) 5-325 mg per tablet Take 1 tablet by mouth as needed. 03/18/2022 polyethylene glycol (Miralax) 17 gram/dose oral powder Take 17 g by mouth daily. 06/19/2023 pramipexole (MIRAPEX) 0.25 mg tablet Take 3-4 Tablets (0.75-1 mg) by mouth at bedtime. 09/04/2022 pregabalin (LYRICA) 300 mg capsule Take 1 capsule (300 mg total) by mouth 2 (two) times a day. 180 capsule 3 10/24/2023 scopolamine base (TRANSDERM SCOP) 1 mg over [address] 1 patch on the skin every third day as needed. 06/03/2022 senna 8.6 mg tablet Take 8.6 mg by mouth at bedtime as needed for constipation. 11/21/2023 sodium fluoride-pot nitrate 1.1-5 % paste Apply 1 Application to teeth at bedtime. 11/21/2023 tiZANidine (ZANAFLEX) 4 mg tablet Take 1 tablet (4 mg total) by mouth at bedtime. 90 tablet 3 10/24/2023 Trulicity 4.5 mg/0.5 mL injection Inject 4.5 mg under the skin once a week. 07/10/2023 UltiCare Pen Needle 31 gauge x 5/16 needle USE FOR ADMINISTERING INSULIN AT HOME 08/03/2022 documented as of this encounter Procedure Notes * Robert Gibbons M.D. - 01/26/2024 10:30 AM CDTAssociated Order(s): FL Lumbar Spine Radiofrequency Denervation Pre-Procedure Diagnose(s): Pain Low Back Unspecified; Spondylosis Lumbar Without Myelopathy Post-Procedure Diagnose(s): Pain Low Back Unspecified; Spondylosis Lumbar Without Myelopathy FL Lumbar Spine Radiofrequency Denervation Performed by: Robert Gibbons M.D. Authorized by: Amelia Salgado APRN, CNS, D.NShamikaPShamika Care team members present 1. Brie Estes L.P.N. PROCEDURE SUMMARY Indications: Spondylosis without myelopathy Pre-procedural pain: 01/23 Post-procedural pain: 01/23 Site: lumbar Lumbar: medial branch radiofrequency Radiofrequency ablation of the Left L4-L5, Left L5-S1, Right L4-L5 and Right L5- S1 facet joints Double burn: yes RFA needles [...] 18 Total steroid in injectate (mg): 0 12 mL BUPivacaine 0.5 % (5 mg/mL) 6 mL lidocaine 10 mg/mL (1 %) PROCEDURE DETAILS Radiofrequency ablation - lumbar (see below): Complications: no apparent complications Radiofrequency ablation - lumbar: Using fluoroscopy, the [...] Procedure visit Division of Pain Medicine in [place], [place] [address] [place] [address] Amelia Salgado APRN, WELL REACTIVATOR OPERATOR, D.N.P. 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 FLUOR O GUIDED PAIN PROCEDURES Performing Organization Address [facility] de Phone Number MMODAL NA * (ABNORMAL) Glucose, POCT (01/26/2024 9:32 AM CDT) Glucose, POCT, B 152(H) 70 - 140 mg/dL 01/26/2024 9:49 AM CDT PCMO Site Capillary 01/26/2024 9:49 AM CDT PCMO Blood 01/26/2024 9:32 AM CDT 01/26/2024 9:49 AM CDT Unknown Provider LAB POCT ORDERABLES- MANUAL Performing Organization Address [facility] Co de Phone Number POC [facility] [address] [place] [address], [facility] POC [address] [place] [address] documented in this encounter Visit Diagnoses Diagnosis Pain Low Back 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 documented in this encounter Administered Medications Active Administered Medications - up to 3 most recent administrations Medication Order MAR Action Action Date Dose Rate Site Lactated Ringer's 20 mL/hr, intravenous, Continuous, Starting on Mon01/26/24 at 0945 New Bag 01/26/2024 9:46 AM CDT 20 mL/hr 20 mL/hr Inactive Administered Medications - up to 3 most recent administrations Medication Order MAR Action Action Date Dose Rate Site BUPivacaine 0.5 % (5 mg/mL) injection 12 mL (Marcaine) 12 mL, injection, One-Time Injection, Starting on Mon01/26/24 at 1030, For 1 dose Given 01/26/2024 10:30 AM CDT 12 mL fentaNYL injection (Sublimaze) As needed, Starting on Mon01/26/24 at 1011, Intra-Op Given 01/26/2024 10:11 AM CDT 50 mcg Given 01/26/2024 10:11 AM CDT 50 mcg lidocaine 10 mg/mL (1 %) injection 6 mL (Xylocaine) 6 mL, injection, One-Time Injection, Starting on Mon01/26/24 at 1030, For 1 dose Given 01/26/2024 10:30 AM CDT 6 mL midazolam (PF) injection (Versed) As needed, Starting on Mon01/26/24 at 1011, Intra-Op Given 01/26/2024 10:11 AM CDT 2 mg documented in this encounter Care Teams Head Of Transport Logistics Relationship Specialty Start Date End Date Elsewhere, Pcp PCP - General Internal Medicine 09/30/22 documented as of this encounter
--- OUTSIDE RECORDS SUMMARY | 2024-02-12 19:39 | XMS_ITS | Encounter Summary ---
Author Organization [facility] Address [address] [place] [address] Care Team Providers Care Customer Experience Leader Name Role Phone Elsewhere, Pcp Primary Care Provider Unavailabl e Encounter Details Date Type Department Care Team (Late st Contact Info) Description 10/19/2023 Clinical Communication Division of Pain Medicine in [place], [place] [address] [place] [phone] Amelia Salgado APRN, FINANCE ADMIN, D.N.P. [address] [place] [phone] Social History Tobacco Use Types Packs/Day Years [...] 09/27/2022 How often do you attend chur [employer] or catholic services? Never 09/27/2022 Do you belong to any clubs o r organizations such as moravian groups, unions, [employer] or athletic groups, or school groups? No [...] and heating? Not hard at all 01/05/2023 [facility] - [...] your living situation today? I have a [facility] place to live 01/05/2023 Education [...] Procedure visit Division of Pain Medicine in [place], [place] [address] [place] [phone] Amelia Salgado APRN, FINANCE ADMIN, D.N.P. [address] [place] [phone] documented as of this encounter Visit Diagnoses Not on filedocumented in this encounter Care Teams Customer Experience Leader Relationship Specialty Start Date End Date Elsewhere, Pcp PCP - General Internal Medicine 09/30/22 documented as of this encounter
--- OUTSIDE RECORDS SUMMARY | 2024-02-12 19:39 | XMS_ITS | Encounter Summary ---
Author Organization [facility] Address [address] [place] [phone] Care Team Providers Care Fibre Composite Technician Name Role Phone Elsewhere, Pcp Primary Care Provider Unavailabl e Reason for Visit * Reason Onset Date Comments Pre-visit Intake 12/21/2023 Encounter Details Date Type Department Care Team (Latest Contact Info) Description 12/21/2023 1:00 PM CDT Clinical Communication Virtual Review in [place], [place] [address] [place] [address] Pre-visit Intake Social History Tobacco Use Types Packs/Day Years Used Date Smoking Tobacco: Never Passive Smoke Exposure: Current Smokeless Tobacco: Never Alcohol Use Standard Drinks/Week Comments Not Currently 0 (1 standard drink = 0.6 oz pur e alcohol) Maybe 1-2 drinks a year [facility] Utilities Answer Date Recorded In the [...] How often do you attend chur or adventist services? Never 09/27/2022 Do you belong to any clubs o r organizations such as pentecostalism groups, unions, fraternal or athletic groups, or [...] your living situation today? I have a [facility] place to live 12/17/2023 Education Answer [...] Procedure visit Division of Pain Medicine in [place], [place] [address] [place] [phone] Amelia Salgado APRN, STRATEGIC PLANNING MANAGER, D.N.P. [address] [place] [phone] documented as of this encounter Visit Diagnoses Not on filedocumented in this encounter Care Teams Fibre Composite Technician Relationship Specialty Start Date End Date Elsewhere, Pcp PCP - General Internal Medicine 09/30/22 documented as of this encounter
--- OUTSIDE RECORDS SUMMARY | 2024-02-12 19:39 | XMS_ITS | Encounter Summary ---
Author Organization [facility] Address [address] [place] [address] Care Team Providers Care Attending Psychiatrist Name Role Phone Elsewhere, Pcp Primary Care Provider Unavailabl e Encounter Details Date Type Department Care Team (Late st Contact Info) Description 01/04/2024 Clinical Communication Division of Pain Medicine in [place], [place] [address] [place] [phone] Amelia Salgado APRN, MASONRY CONTRACTOR, D.N.P. [address] [place] [phone] Social History Tobacco Use Types Packs/Day Years Used Date Smoking Tobacco: Never Passive Smoke Exposure: Current Smokeless Tobacco: Never Alcohol Use Standard Drinks/Week Comments Not Currently 0 (1 standard drink = 0.6 oz pur e alcohol) Maybe 1-2 drinks a year [facility] Utilities Answer Date Recorded In the [...] often do you attend chur ch or sabianist services? Never 09/27/2022 Do you belong to any clubs o r organizations such as cheondoism groups, unions, fraternal or athletic groups, or [...] and heating? Not hard at all 01/05/2023 [facility] - Occupational Stress [...] your living situation today? I have a [facility] place to live 12/17/2023 Education Answer [...] Procedure visit Division of Pain Medicine in [place], [place] [address] [place] [phone] Amelia Salgado, DANYEL, MASONRY CONTRACTOR, D.N.P. [address] [place] [phone] documented as of this encounter Visit Diagnoses Not on filedocumented in this encounter Care Teams Attending Psychiatrist Relationship Specialty Start Date End Date Elsewhere, Pcp PCP - General Internal Medicine 09/30/22 documented as of this encounter
--- OUTSIDE RECORDS SUMMARY | 2024-02-12 19:39 | XMS_ITS | Encounter Summary ---
Author Organization [facility] Address [address] [place] [address] Care Team Providers Care Software Sales Name Role Phone Elsewhere, Pcp Primary Care Provider Unavailabl e Reason for Referral * Outpatient (Routine) - Authorized Specialty Diagnoses / Procedures Referred By Contac t Referred To Contact Diagnoses Myofascial Pain Syndrome Procedures PM Trigger point injection Amelia Salgado APRN, VEGETABLE BUNCHER, D.N.P. [address] [place] [address] [facility] Referral ID Status Reason Start Date Expiration Date V isits Requested Visits Authorized [id number] Authorized 12/22/2023 12/21/2024 1 1 * Outpatient (Routine) - Closed Specialty Diagnoses / Procedures Referred By Contac t Referred To Contact Diagnoses Pain Low Back 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 Procedures FL Lumbar Spine Radiofrequency Denervation MI DEST LUMB/SAC FACET JT MI DEST LUMB/SAC FACET JT ADD Amelia Salgado APRN, VEGETABLE BUNCHER, D.N.P. [address] [place] [address] [facility] Referral ID Status Reason Start Date Expiration Date Visits Re quested Visits Authorized [id number] Closed 01/04/2024 05/02/2024 1 1 Reason for Visit * Outpatient (Routine) - Closed Specialty Diagnoses / Procedures Referred By Contnilda t Referred To Contact Pain Medicine Amelia Salgado APRN, CNS, D.N.P. [address] [place] [phone] [facility] Referral ID Status Reason Start Date Expiration Date Visits Re quested Visits Authorized [id number] Closed 08/22/2023 02/20/2025 1 1 Encounter Details Date Type Department Care Team (Late st Contact Info) Description 12/22/2023 1:00 PM CDT Virtual Visit Division of Pain Medicine in [place], [place] [address] [place] [phone] Amelia Salgado APRN, BHANU, D.N.P. [address] [place] [phone] Pain Low Back Unspecified (Primary Dx); Spondylosis Lumbar Without Myelopathy; Myofascial Pain Syndrome Social History Tobacco Use Types Packs/Day Years Used Date Smoking Tobacco: Never Passive Smoke Exposure: Current Smokeless Tobacco: Never Alcohol Use Standard Drinks/Week Comments Not Currently 0 (1 standard drink = 0.6 oz pur e alcohol) Maybe 1-2 drinks a year [facility] Utilities Answer Date Recorded In the past 12 months has [employer], gas, oil, or water [employer] threatened to shut off services in your [...] r organizations such as cheondoism groups, unions, [employer] or athletic groups, or school groups? No [...] and heating? Not hard at all 01/05/2023 [facility] - Occupational Stress [...] your living situation today? I have a [facility] place to live 12/17/2023 Education Answer [...] * Amelia Salgado APRN, BHANU, D.N.P. - 12/22/2023 1:00 PM CDT Images from the original note were not included. SUBJECTIVE Return conducted via telephone technology by Amelia Salgado APRN, BHANU, D.N.P. to the patient in Patient's home. 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 female with a history of post COVID syndrome, lumbosacral radiculopathy, peripheral neuropathy, low back pain, diabetes mellitus, and migraine headaches whom has been followed in the Pain Clinic for the aforementioned chief complaint. Initial consultation took place with Courtney Sandhu APRN, MELTER HELPER, MSN in conjunction with Dr. Gibbons on 10/04/22 whom patient had been previously seeing at [facility] in the [facility]. I would refer the interested reader to this note for full details of the evaluation. The purpose of today's telephone visit is for consideration of repeat fluoroscopy guided bilateral lumbar spine radiofrequency ablation targeting L4-5/L5-S1. Kerrie baumann last underwent the procedure on 06/15/24 (right side) and 06/14/23 (left side) endorsing 80% improvement of symptoms that lasted 6 months. Recall patient additionally undergoes lumbar/PSIS trigger point injections as she feels pair nicely with pain control. She is interested in consideration of repeat of lumbar trigger point injections. Her last TPI was 10/24/23 in which she also endorses 80% improvement of symptoms. She reports it took about 10 days for the myofascial injections to kick in. Most notably patient recently underwent knee surgery one month ago. She is doing quite well, she isweaning off the post procedure Oxycodone and is off the Eliquis. She is working with a physical therapist at [facility] and reports doing very well in this regard. She is utilizing a cane in the acute postoperative period with the goal to restore ambulation without assistive devices. Patient reports her low back pain characteristics are similar to previous evaluations in which the pain is located in the posterior low back at the midline with radiation through the buttocks. Patient denies radicular symptoms through the lower extremities although she does report numbness/tinglingin the feet bilaterally. Associated symptoms include sharpness. Aggravating factors include weight-bearing activity such as standing and walking. Alleviating factors include sitting and lying down. Conservative treatments include ice/heat, massage, care director, TENS unit, acupuncture, CBD roll-on, and physical therapy. Medication management include: Pain Medications acetaminophen (TYLENOL) 500 mg tablet Take 2 tablets by mouth as needed. citalopram (CeleXA) 20 mg tablet Take 30 mg by mouth every morning. cyclobenzaprine (FLEXERIL) 10 mg tablet Take 10 mg by mouth as needed. ketorolac (TORADOL) 30 mg/mL injection Inject 30 mg intramuscularly as needed for pain. oxyCODONE (ROXICODONE) 5 mg immediate release tablet Take 5 mg by mouth as needed. oxyCODONE-acetaminophen (PERCOCET) 5-325 mg per tablet Take 1 tablet by mouth as needed. pregabalin (LYRICA) 300 mg capsule Take 1 capsule (300 mg total) by mouth 2 (two) times a day. tiZANidine (ZANAFLEX) 4 mg tablet Take 1 tablet (4 mg total) by mouth at bedtime. Current Outpatient Medications Medication Instructions acetaminophen (TYLENOL) 500 mg tablet 2 tablets, oral, As needed atorvastatin (LIPITOR) 40 mg, oral, Daily BD Filter Needle-5 Micron 19 x 1 1/2 needle As needed BD PrecisionGlide 25 gauge x 1 needle As needed blood sugar diagnostic strips (Blood Glucose Test Strips) Test 3 times per day. Contour Next test JUDE ASCE blood sugar diagnostic strips 1 test, other, 3 times daily blood-glucose meter kit Dispense meter, test strips, lancets covered by pt ins. E11.9 NIDDM type II- Test 4 times/day. Reason: High A1C citalopram (CELEXA) 30 mg, oral, Every morning cyclobenzaprine (FLEXERIL) 10 mg, oral, As needed cyproheptadine (PERIACTIN) 4 mg, oral, As needed dihydroergotamine (DHE) 0.5-1 mg, intramuscular, As needed dulaglutide (TRULICITY) 4.5 mg, subcutaneous, Every 7 days esomeprazole (NexIUM) [address] capsule Daily insulin lispro (Carbohydrate Count) 40 Units, subcutaneous, As needed insulin lispro 100 unit/mL injection 3 times daily insulin syringe-needle U-100 0.3 mL 31 gauge x 5/16 syringe Daily ketorolac (TORADOL) 30 mg, intramuscular, As needed lancets Test 4 times per day. Lantus Solostar U-100 Insulin 100 unit/mL (3 mL) injection 2 times daily levothyroxine (SYNTHROID, LEVOTHROID) 200 mcg tablet Daily lisinopriL (PRINIVIL,ZESTRIL) 5 mg, oral, Daily lorata-dine D 10-240 mg per 24 hr tablet 1 tablet, oral, Daily at bedtime metoprolol succinate (TOPROL-XL) 25 mg, oral, Daily Monoject Regular Luer 3 mL syringe As needed nystatin (NYSTOP) 100,000 unit/gram powder 1 strip, Topical, As needed ondansetron (ZOFRAN) 4 mg tablet As needed oxyCODONE (ROXICODONE) 5 mg, oral, As needed oxyCODONE-acetaminophen (PERCOCET) 5-325 mg per tablet 1 tablet, oral, As needed polyethylene glycol (MIRALAX) 17 g, oral, Daily pramipexole (MIRAPEX) 0.25 mg tablet Take 3-4 Tablets (0.75-1 mg) by mouth at bedtime. pregabalin (LYRICA) 300 mg, oral, 2 times daily scopolamine base (TRANSDERM SCOP) 1 mg over 3 days 1 patch, transdermal, Every 72 hours PRN senna 8.6 mg, oral, Bedtime PRN sodium fluoride-pot nitrate 1.1-5 % paste 1 Application, dental, Daily at bedtime tiZANidine (ZANAFLEX) 4 mg, oral, Daily at bedtime Trulicity 4.5 mg, subcutaneous, Weekly UltiCare Pen Needle 31 gauge x 5/16 needle USE FOR ADMINISTERING INSULIN AT HOME MEDICAL/SURGICAL HISTORY Past Surgical History: Procedure Laterality Date DILATATION AND CURETTAGE 2014 GALLBLADDER SURGERY 1999 SINUS SURGERY 2001 THYROID SURGERY 2000 TOTAL HYSTERECTOMY 2014 Past Medical History: Diagnosis Date Depressive Disorder 2001 Diabetes Mellitus NOS 2013 Gastroesophageal Reflux Disease NOS 1999 Glaucoma 2021 Headache Unspecified Hypertension NOS Malignant Neoplasm Of Thyroid (HCC) 2001 Migraine Headache Nodule Thyroid 2001 Other Injury Of Unspecified Body Region Pneumonia Social History Tobacco Use Smoking status: Never Passive exposure: Current Smokeless tobacco: Never Vaping Use Vaping status: never used Substance Use Topics Alcohol use: Not Currently Comment: Maybe 1-2 drinks a year Drug use: Never Lauraludmila Madrid denies recent fevers, chills, infections or antibiotics. No allergies to local anesthetic, corticosteroid, or contrast dye. No anticoagulation. No recent bowel or bladder changes. No unintentional weight loss or weight gain. Pain Score: 4/10. Imaging (personally reviewed and interpreted) 04/19/23 [...] formation. ALLERGIES Cefprozil, Iodine, Latex, Erythromycin, Levofloxacin, Iodinated contrast media, and Isosorbide mononitrate OBJECTIVE History was reviewed including allergies, current medications, and problem list. REVIEW OF SYSTEMS I have briefly reviewed the Review of Systems as noted on the Health history form. I am only responding to those symptoms which are directly relevant to the specific indication for my consultation. Irecommend that the patient follow up with their primary or referring provider to pursue any other symptoms which may be of concern. PHYSICAL EXAM General: Pleasant; No acute distress. Mental status: Oriented to person, place, and time. Appropriate mood and affect. Recent and remote memory grossly intact. 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 Low back pain: After evaluation patient is appropriate to proceed without contraindications to fluoroscopy guided bilateral lumbar spine radiofrequency ablation targeting L4-5/L5-S1. We have discussed the risks, benefits, and [...] and concerns were answered to the best of my abilities. This patient has been assessed and evaluated as a candidate for repeat thermal facet joint RFA at the same location previously treated and found to have had 80 percent improvement in pain and 80 percent improvement in functionality consistently for 6 months. (Minimum requirement is 50% consistent improvement in pain OR 50% consistent improvement in functionality for a minimum of 6 months). The patient's current NRS is 4/10. During the 6 month period after the last ablation pain was approximately 2/10. Previous RFA was performed on June 14, 2023 (left side) and June 15, 2023 (right side). The procedural consent was reviewed and sent to the patient via the portal. Please ensure e-signature has been obtained prior to procedure 2. Myofascial pain: Patient would like to repeat lumbar/PSIS trigger point injections. We discussedlatest guidelines with having this done with local anesthetic only and not inclusive of corticosteroid. Patient verbalized understanding. She would like to return to the clinic for bedside procedure i njections with myself also on a day I'm being staffed by Dr. Gibbons. Appropriate orders have beenplaced. Follow-up: With the Pain Clinic as needed via phone or portal. Patient Education: Ready to learn, no apparent learning barriers were identified; learning preferences include listening. Explained diagnosis and treatment plan; patient/child/caregiver expressed understanding of the content. I personally spent a total 30 minutes with the patient in counseling, discussion and/or coordination of care as described above. PRO Scores: 09/13/2023 10:06 AM 09/13/2023 10:07 AM 09/13/2023 10:08 AM [facility] PROMIS-CAT: Pain interference 58 (mild) PROMIS-CAT: Ability to participate social roles 48 (within normal limits) PROMIS-CAT: Physical function 29 (severe dysfunction) documented in this encounter Plan of Treatment Upcoming Encounters Date Type Department Care Team (Late st Contact Info) Description 03/12/2024 10:00 AM CDT Procedure visit Division of Pain Medicine in [place], [place] [address] [place] [address] Amelia Salgado APRN, VEGETABLE BUNCHER, D.N.P. [address] [place] [phone] (work) documented as of this encounter Results * FL Lumbar Spine Radiofrequency Denervation (01/26/2024 10:32 AM CDT) Narrative [facility] - 01/26/2024 10:30 AM CDT Robert Gibbons M.D. ? 01/26/2024 10:41 AM FL Lumbar Spine Radiofrequency Denervation Performed by: Robert Gibbons M.D. Authorized by: Amelia Salgado APRN, BHANU, [...] loss: 0 Implants: 0 Amelia Salgado APRN, VEGETABLE BUNCHER, D.N.P. FLUOR O GUIDED PAIN PROCEDURES [facility] NA documented in this encounter Visit Diagnoses Diagnosis Pain Low Back Unspecified- Primary Spondylosis Lumbar Without Myelopathy Myofascial Pain Syndrome Pain Low Back 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 documented in this encounter Care Teams Software Sales Relationship Specialty Start Date End Date Elsewhere, Pcp PCP - General Internal Medicine 09/30/22 documented as of this encounter
--- OUTSIDE RECORDS SUMMARY | 2024-02-12 19:39 | XMS_ITS | Patient Health Record ---
Author Organization [facility] Address [address] [place] [address] [address] [place] [address] Care Team Providers Care Credit Control Officer Name Role Phone Gita Marie Primary Care Provider Unavaileva RosseFabrizio Unavailable [phone] Raymond BERNAL MARKING CLERK, Mandi Unavailable Unavaila ble ALLERGIES Allergen (clinical [...] Once a day at bedtime Active Nystatin 071127 UNIT/GM 1 application Externally Twice a day [...] chronic pain (G89.29) Active confirmed Chronic pain (51528845) Problem Spondylosis without myelopathy or radiculopathy, lumbosacral region (M47.817) Active confirmed Lumbosacral spondylosis without myelopathy (84393346) Problem Radiculopathy, lumbosacral region (M54.17) Active confirmed Lumbosacral radiculopathy (4654519) Problem Low back pain, unspecified (M54.50) Active confirmed Low back pain (484701636) PLAN OF TREATMENT No Information Insurance Providers Payer Name Payer Address Payer Phone Subscriber Number Group Number Insured Name Patient Relationship to Insured Coverage Start Date Coverage End Date [employer] [place] [employer] [place] PMAP [address] [address] [place] [address] [id number] [facility] Laura Madrid Self - patient is the insured [facility] [address] [address] [place], [place] [id number] Laura Madrid Self - patient is the [...]
--- OUTSIDE RECORDS SUMMARY | 2024-02-12 19:39 | XMS_ITS | Clinical Summary ---
Author Organization [facility] Address [place], [place] [address] Care Team Providers Care Bricklayer Apprentice Name Role Phone Kar Soto MD Unavailable Olvin Vega MD Unavailable Bhaskar Page MD Unavailable Major Chandler MBBS Unavailable [phone] Isak Nielson MD Unavailable Jillian Daley NP Unavailable Ania Avalos PsyD, LP Unavailable Na Estes MD Primary Care Provider [phone] Allergies Active Allergy Reactions Criticality Noted Date [...] mouth 2 times daily. 60 capsule 12 08/24/19 17 Active acetaminophen (TYLENOL EXTRA STRGTH) 500 mg tablet Take 2 tablets by mouth every 6 hours if needed (pain, headache). Active blood-glucose meterIndications:U ncontrolled type 2 diabetes mellitus, without long-term current use of insulin Dispense meter, test strips, lancets covered by pt ins. E11.9 NIDDM type II - Test 4 times/day. 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 200 Each 11 09/01/19 21 Active PreviDent 5000 Sensitive 1.1-5 % pste USE DOCTOR INSTRUCTED 10/18/19 21 Active dihydroergotamine (D.H.E.45) 1 mg/mL injection Inject 0.5-1 mg intramuscular. 08/03/19 22 Active scopolamine 1mg over 3 days (TRANSDERM SCOP) patchIndications:H /O motion sickness Apply 1 Patch on dry, clean, hairless skin every 72 hours if needed for Nausea/Vomiting. 4 Patch 06/03/20 22 Active ondansetron (ZOFRAN) 4 mg tabletIndications: Nausea Take 1 Tablet (4 mg) by mouth every 8 hours if needed for Nausea/Vomiting. 60 Tablet 12/10/19 23 Active lisinopriL (PRINIVIL; ZESTRIL) 5 mg tabletIndications: Hypertension Take 1 Tablet (5 mg) by mouth once daily. 90 Tablet 3 12/10/19 23 Active blood sugar diagnostic (Blood Glucose Test) stripIndications:U ncontrolled type 2 diabetes mellitus with hyperglycemia (HC) Test 3 times per day. Contour Next test JUDE ASCE 300 Each 3 01/12/20 23 Active cyclobenzaprine (FLEXERIL) 10 mg tabletIndications: Spasm of muscle of lower back Take 1 Tablet (10 mg) by mouth 3 times daily if needed for Muscle Spasm. 60 Tablet 2 01/19/20 23 Active nystatin powder (MYCOSTATIN) powderIndications: Intertriginous candidiasis Apply 1 Strip topically to affected area(s) three times daily. 60 g 5 03/07/20 23 Active loratadine-pseudoe phedrine (lorata-dine D) 10-240 mg 24hr tabletIndications: Post-nasal drainage Take 1 Tablet by mouth once daily. 90 Tablet 3 06/12/20 23 Active dulaglutide (Trulicity) 4.5 mg/0.5 mL subcutaneous penIndications:Typ e 2 diabetes mellitus with other specified complication, with long-term current use of insulin (HC) Inject 4.5 mg subcutaneous once weekly. 7 mL 2 06/12/20 23 Active polyethylene glycol 3350 (MIRALAX ORAL) Take by mouth. Active ketorolac tromethamine (TORADOL IM) Inject intramuscular each time if needed (Migraine). Active pregabalin (LYRICA) 300 mg capsule Take 300 mg by mouth two times daily. 06/14/20 23 Active pen needle, diabetic (UltiCare Pen Needle) 31 gauge x 5/16Indications:U ncontrolled type 2 diabetes mellitus with hyperglycemia (HC) For administering insulin at home. 450 Each 3 07/26/19 24 Active pramipexole (MIRAPEX) 0.25 mg tabletIndications: Restless legs Take 3-4 Tablets (0.75-1 mg) by mouth at bedtime. 360 Tablet 1 09/12/19 24 Active cyproheptadine (PERIACTIN) 4 mg tabletIndications: Nausea Take 1 Tablet (4 mg) by mouth one time if needed (nausaea) for up to 1 dose. 30 Tablet 11/15/19 24 Active oxyCODONE (ROXICODONE) 5 mg immediate release tablet Take 5 mg by mouth every 4 hours if needed for Pain. 11/21/19 24 Active Senna 8.6 mg tablet Take 8.6 mg by mouth once daily if needed for Constipation. 11/21/19 24 Active tiZANidine (ZANAFLEX) 4 mg tablet Take 4 mg by mouth at bedtime. 10/24/19 24 Active citalopram (CELEXA) 20 mg tabletIndications: Anxiety Take 1.5 Tablets (30 mg) by mouth every morning. 135 Tablet 1 12/14/19 24 Active Yared Flores U-100 Insulin 100 unit/mL (3 mL) penIndications:Typ e 2 diabetes mellitus with hyperglycemia, with long-term current use of insulin (HC) Inject 80 units subcutaneous two times daily. Product desired: BASAGLAR KWIKPEN 180 mL 12/28/19 24 Active metoprolol succinate (Toprol XL) 25 mg Sustained-Release tabletIndications: Hypertension,Parox ysmal SVT (supraventricular tachycardia) (HC) Take 1 Tablet (25 mg) by mouth once daily. 90 Tablet 3 12/28/19 24 Active levothyroxine (SYNTHROID) 200 mcg tabletIndications: Postoperative hypothyroidism Take 1 Tablet (200 mcg) by mouth before breakfast. 90 Tablet 2 12/28/19 24 Active insulin aspart niacinamide (Fiasp FlexTouch U-100 Insulin) 100 unit/mL (3 mL) penIndications:Typ e 2 diabetes mellitus with hyperglycemia, with long-term current use of insulin (HC) Up to 40 units tid with meals 9 mL 3 12/28/19 24 Active atorvastatin (LIPITOR) 40 mg tabletIndications: Mixed hyperlipidemia,Typ e 2 diabetes mellitus with other specified complication, with long-term current use of insulin (HC) Take 1 Tablet (40 mg) by mouth at bedtime. 90 Tablet 3 02/07/20 24 Active insulin syringe-needle u-100 (BD SAFETYGLIDE) 0.3 mL 31 gauge x 5/16Indications:U ncontrolled type 2 diabetes mellitus, without long-term current use of insulin For administering insulin at home. 1 box 01/28/20 20 024 Discontinued(*M ed complete/Regime n complete/Level of care change) atorvastatin (LIPITOR) 40 mg tabletIndications: Mixed hyperlipidemia,Typ e 2 diabetes mellitus with other specified complication, with long-term current use of insulin (HC) Take 1 Tablet (40 mg) by mouth at bedtime. 90 Tablet 3 12/10/19 23 024 Discontinued Active Problems Patient Care Coordination No te Formatting of this note migh t be different from the original. Alea's two adopted adult daughters are what matters most to Alea. Alea would like her care team to know ...none.. What are Alea's challenges, stressors, or barriers? Grief over loss of father, financial stressors, ongoing foot pain Problem Noted Date Diagnosed Date Microvascular angina 11/27/2023 COVID-19 long hauler 02/25/2022 Overview: Chronic shortness [...] occipital nerve block: kenalog + bupivacaine 08/13/2020 Pain due to internal orthope dic prosthetic devices, implants and grafts, sequela 01/01/2019 Uncontrolled type 2 diabetes mellitus without complication, without long-term current use of insulin 01/16/2018 Myopia of left eye with astigmatism and presbyop ia 02/06/2017 Hyperopia of right eye with astigmatism and pres byopia 02/06/2017 Postoperative hypothyroidism 03/25/2015 Hyperlipidemia 03/14/2014 Overview: Ran calculations Mar 14.;2014: With age43,eset939,hdl51, stx238, treated hypertension, +dm. 10year ATHEROSCLEROTIC CARDIOVASCULAR DISEASE [...] 01/22/01: Surgery: subtotal thyroidectomy Pathology (reviewed at [facility] - see notes from [facility] that are currently in the system as [...] follow up with Dr. Tam Daley with [facility] for several years. This included a [...] of status migrainosus 03/17/2007 Esophageal reflux 03/02/2006 Resolved Problems Problem Noted Date Diagnosed Date Resolved Date Complex tear of lateral meni scus of left knee as current injury 04/06/2020 11/27/2023 COVID-19 virus infection 10/23/2019 Acute respiratory failure with hypoxia 10/23/2019 07/28/2021 Lower respiratory tract infection 10/17/2019 11/27/2023 Anticoagulation monitoring, INR range 2-3 11/24/2017 01/18/2023 PE (pulmonary thromboembolism) 11/22/2017 11/27/2023 Deep vein thrombosis (DVT) o f distal vein of right lower extremity, unspecified chronicity 11/22/2017 11/27/2023 Controlled type 2 diabetes m ellitus with [...] 11/29/2011 Overview: 2004-onset , with multiple recurrences Peroneal tendon tear, right, subsequent encounter 11/27/2023 Encounters Date Type Department Care Team Description 02/05/2024 Refill [facility] [address] [place] [address] Gita Marie MD Refill Request (Atorvastatin) 01/29/2024 8:[address] [facility] [address] [place] [address] Ania Avalos PsyD, LP Individual Therapy; Telehealth (/) 01/25/2024 Travel 01/24/2024 8:30 AM CDT Procedure Only [facility] [address] [place] [address] Yo Owens L Ac Acupuncture 01/23/2024 1:00 PM CDT Office Visit [facility] [address] [place] [address] Jerod Rivera, DPM Foot Problem (Follow up left heel callus- tried lotion with no help of softening the callus, soaked her feet with 1 part vinegar/ 3 parts water per advised by her timber poisoner has helped, and pumice stone will get some skin off. ) 01/23/2024 Travel 01/18/2024 Travel 01/17/2024 7:30 AM CDT Preop Visit [facility] [address] [place] [address] Na Estes MD Pre-Op Exam (Total Right knee replacement /01/30/24/Dr Sven Owusu ) 01/16/2024 2:30 PM CDT Procedure Only [facility] [address] [place] [address] Yo Owens L Ac Acupuncture 01/16/2024 Travel 01/11/2024 11:00 AM CDT Procedure Only [facility] [address] [facility] [place] [address] Yo Owens L Ac Acupuncture 01/10/2024 Travel 01/08/2024 8:30 AM CDT Telemedicine [address] [address] Robbie, Ania A, PsyD, LP Individual Therapy; Telehealth 01/03/2024 Travel 01/02/2024 8:30 AM CDT Procedure Only [facility] [address] [facility] [place] [address] Yo Owens L Ac Acupuncture 01/02/2024 Travel 12/29/2023 1:00 PM CDT Procedure Only [facility] [address] [facility] [address] Yo Owens L Ac Acupuncture 12/28/2023 7:30 AM CDT Office Visit [facility] [id number] [place] [address] Na Estes MD Medication Management 12/28/2023 Travel 12/25/2023 Travel 12/18/2023 8:30 AM CDT Telemedicine [address] [address] Robbie, Ania A, PsyD, LP Individual Therapy; Telehealth 12/18/2023 Travel 12/14/2023 2:30 PM CDT Procedure Only [facility] [address] [place] [address] Yo Owens L Ac Acupuncture 12/14/2023 Travel 12/13/2023 [address]ill [facility] [id number] [place] [address] Na Estes MD Refill Request (Citalopram) 12/10/2023 Travel 12/05/2023 [address]ill [facility] [id number] [place] [address] Na Estes MD Refill Request (Lantus Solostar U-100 Insulin) 11/27/2023 11:00 AM CDT Orders Only [facility] [id number] [place] [address] Lab 11/27/2023 9:30 AM CDT Telemedicine [facility] [id number] [place] [phone] Na Estes MD Telehealth; UTI 11/27/2023 8:[address] [facility] [address] [place] [address] Ania Avalos PsyD, LP Individual Therapy; Telehealth 11/27/2023 Travel 11/20/2023 8:30 AM CDT Procedure Only [facility] [address] [place] [address] Yo Owens L Ac Acupuncture 11/20/2023 Travel 11/18/2023 Travel 11/15/2023 7:30 AM CDT Preop Visit [facility] [id number] [place] [address] Na Estes MD Pre-Op Exam (Left knee replacement/Dr Sven Owusu /11/21/2023/[facility] /[phone]) 11/15/2023 Telephone [facility] [id number] [place] [address] aN Estes MD Refill Request; Questions 11/15/[address] [facility] [phone] [place] [address] Na Estes MD 11/14/2023 Travel 11/13/2023 6:53 AM CDT - 11/13/2023 11:59 PM CDT Hospital Encounter [facility] [place] [address] [place] [address] Reed Barclay, Stacy Rene, PT 11/13/2023 Travel from Last 3 Months Immunizations Name Administration Dates Next Due COVID-19 vaccine ([employer] 30mcg/0.3mL) PF, MDV 10/08/2021,05/04/2021,10/30/2020,2020 DT (Age < 7 years) 12/08/2005 [...] Disease Father cad Hypertension Mother improved after longterm Other Mother scleroderma Cancer Other first cousin [...] PHQ-2 Answer Date Recorded PHQ-2 TOTAL SCORE 0 01/29/2024 Social Connections Answer Date Recorded Frequency of [...] Sex Assigned at Female 07/05/2021 12:17 AM STUDENT OFFICER Gender Identity Female 07/05/2021 12:17 AM STUDENT OFFICER Sexual Orientation Straight 07/05/2021 12 :17 AM STUDENT OFFICER Obstetrics History Para Term AB IAB SAB Ectopic Multiple Livin g Live Births 0 0 0 0 0 0 0 0 0 0 Last Filed Vital Signs Vital Sign Reading Time Taken Comments Blood Pressure 134/76 01/17/2024 8:17 AM CDT Pulse 80 01/17/2024 8:17 AM CDT Temperature 36.9 ??C (98.4 ??F) 10/19/2023 3:00 PM CD T Respiratory Rate 18 01/17/2024 8:17 AM CDT Oxygen Saturation 97% 01/17/2024 8:17 AM CDT Inhaled Oxygen Concentration - - Weight 180.1 kg (397 lb) 01/17/2024 8:17 AM CDT Height 175.3 cm (5' 9) 01/17/2024 8:17 AM CDT Body Mass Index 58.63 01/17/2024 8:17 AM CDT Plan of Treatment Upcoming Encounters Date Type Department Care Team (Late st Contact Info) Description 02/16/2024 8:[address] [facility] [address] [place] [address] Ania Avalos PsyD, ROBINSON [address] [facility] [address] [facility] [address] [place], [place] [id number] 02/22/2024 1:30 PM CDT Procedure Only [facility] [address] [place] [address] Yo Owens L Ac [address] [facility] [place] [address] 03/01/2024 1:00 PM CDT Procedure Only [facility] [address] [facility] [place] [address] Yo Owens L Ac [address] [facility] [place] [address] 03/04/2024 8:[address] [facility] [address] [place] [address] RobbieAnia palencia PsyD, LP [address] [place] [address] 03/06/2024 10:00 AM CDT Procedure Only [facility] [address] [place] [address] Yo Owens L Ac [address] [place] [address] 03/15/2024 9:00 AM CDT Procedure Only [facility] [address] [facility] [place] [address] Yo Owens L Ac [address] [place] [address] 03/25/2024 8:[address] [facility] [address] [place] [address] RobbieAnia palencia A PsyD, LP [address] [place] [address] 04/11/2024 8:[address] [facility] [address] [place] [address] Robbie, Ania A, PsyD, LP [address] [place] [address] 04/29/2024 8:[address] [facility] [address] [place] [address] Robbie, Ania A, PsyD, LP [address] [place] [address] 05/22/2024 8:30 AM STUDENT OFFICER Telemedicine [facility] [address] [place] [address] Robbie, Ania A, PsyD, LP [address] [place] [address] 06/10/2024 8:30 AM STUDENT OFFICER Telemedicine [facility] [address] [place] [address] Robbie, Ania A, PsyD, LP [address] [place] [address] 07/01/2024 8:30 AM STUDENT OFFICER Telemedicine [facility] [address] [place] [address] Robbie, Ania A, PsyD, LP [address] [place] [address] 07/15/2024 8:30 AM STUDENT OFFICER Telemedicine [facility] [address] [place] [address] Robbie, Ania A, PsyD, LP [address] [place], [place] [id number] 08/05/2024 8:30 AM STUDENT OFFICER Telemedicine [facility] [address] [facility] [address] [place] [address] Robbie, Ania A, PsyD, LP [address] [facility] [address] [place], [place] [id number] Health Maintenance Due Date Last Done Comments HIV for age 15-65 1986 Fecal testing sDNA-FIT ([place]) for age 45-75 2016 COVID-19 vaccine series ( - 2022- season) 2023 04/02/2022, 10/08/2021, 05/04/2021, Additional history exists Mammogram for age 45-75 07/07/2024 07/07/20, 06/17/2022, 06/14/2021, Additional history exists BMI (ht and wt on same day) for age 18+ 01/16/2025 01/17/2024, 12/28/2023, 11/15/2023, Additional history exists Depression screening for age 12+ 01/28/2025 01/29/2024, 01/11/2024, 01/08/2024, Additional history exists Pneumococcal series for age 6-64 (3 of 3 - PPSV23 or PCV20) 01/30/2025 09/08/2021, 01/31/2020 Tetanus booster 06/12/2027 06/12/2017, 11/15, 12/08/2005 Lipids for age 45-75 09/02/2027 09/02/2022, 02/25/2022, 01/22/2021, Additional history exists Hepatitis B series for Diabetes Completed 09/24/1999, 05/03/1999, 03/10/1999 Tdap Completed 06/12/2017, 12/08/2005 Zoster (shingles) series for age 50+ Completed 07/30/2021, 05/21/2021 Hepatitis C screening for ag e 18-79 Completed 02/25/2022 Medical Devices Implanted Type Area Prosecuting Attorney Device Identifier Shelf Expiration Date Model / Serial / Lot Iud, Mirena - [id number] Implanted:Qty: 1 on 01/02/2015 by Mireya Avila MD at [facility] N/A: Odalys R-BACILIO 08/04/2017 [id number] / / [id number] Screw Foot 5x50mm Fixos Comp Implanted:Qty: 1 on 08/20/2018 by Jerod Rivera DPM at [facility] Left: Calcaneus Description:SCREW FOOT 5X50M M FIXOS COMP Procedures Procedure Name Priority Date/Time Associated Diagnosis Comments ACUPUNCTURE PLAN OF CARE Routine 02/12/2024 3:56 PM CDT Chronic pain of both knees Other low back pain Other chronic pain Chronic intractable headache, unspecified headache type Chronic migraine without aura without status migrainosus, not intractable ACUPUNCTURE PLAN OF CARE Routine 02/12/2024 3:56 PM CDT Chronic pain of both knees Other low back pain Other chronic pain Chronic intractable headache, unspecified headache type Chronic migraine without aura without status migrainosus, not intractable ACUPUNCTURE PLAN OF CARE Routine 02/12/2024 3:56 PM CDT Chronic pain of both knees Other low back pain Other chronic pain Chronic intractable headache, unspecified headache type Chronic migraine without aura without status migrainosus, not intractable ACUPUNCTURE PLAN OF CARE Routine 02/12/2024 3:56 PM CDT Chronic pain of both knees Other low back pain Other chronic pain Chronic intractable headache, unspecified headache type Chronic migraine without aura without status migrainosus, not intractable ACUPUNCTURE PLAN OF CARE Routine 01/24/2024 9:33 AM CDT Chronic pain of both knees Other low back pain Other chronic pain Chronic intractable headache, unspecified headache type Chronic migraine without aura without status migrainosus, not intractable POTASSIUM Routine 01/17/2024 8:11 AM CDT Preoperative cardiovascular examination HEMOGLOBIN Routine 01/17/2024 8:11 AM CDT Preoperative cardiovascular examination ACUPUNCTURE PLAN OF CARE Routine 01/16/2024 3:10 PM CDT Chronic pain of both knees Other low back pain Other chronic pain Chronic intractable headache, unspecified headache type Chronic migraine without aura without status migrainosus, not intractable ACUPUNCTURE PLAN OF CARE Routine 01/11/2024 4:11 PM CDT Chronic pain of both knees Other low back pain Other chronic pain Chronic intractable headache, unspecified headache type Chronic migraine without aura without status migrainosus, not intractable ACUPUNCTURE PLAN OF CARE Routine 01/02/2024 3:24 PM CDT Chronic pain of both knees Other low back pain Other chronic pain Chronic intractable headache, unspecified headache type Chronic migraine without aura without status migrainosus, not intractable ACUPUNCTURE PLAN OF CARE Routine 12/29/2023 12:57 PM CDT Chronic pain of both knees Other low back pain Other chronic pain Chronic intractable headache, unspecified headache type Chronic migraine without aura without status migrainosus, not intractable ACUPUNCTURE PLAN OF CARE Routine 12/14/2023 2:16 PM CDT Chronic pain of both knees Other low back pain Other chronic pain Chronic intractable headache, unspecified headache type Chronic migraine without aura without status migrainosus, not intractable UA W/ SEDIMENT EXAM REFLEXED PER CRITERIA Routine 11/27/2023 7:45 AM CDT UTI (urinary tract infection), uncomplicated ACUPUNCTURE PLAN OF CARE Routine 11/21/2023 9:30 [...] 11/15/2023 8:16 AM CDT Preoperative cardiovascular examination XR MAMMO BILAT SCREENING Routine 07/07/2023 8:34 AM STUDENT OFFICER Visit for screening mammogram LC LIPID PANEL AND CHOL/HDL RATIO Routine 09/02/2022 7:35 AM STUDENT OFFICER Type 2 diabetes mellitus with hyperglycemia, with long-term current use of insulin (HC) ANTI HCV Routine 02/25/2022 12:11 PM CDT Need for hepatitis C screening test from Last 3 Months or Most Recently Relevant to Health Maintenance Results * HEMOGLOBIN (01/17/2024 8:11 AM CDT) Only the most recent of2 resultswithin the time period is included. HEMOGLOBIN 12.5 12.0 - 16.0 g/dL 01/17/2024 10:25 PM CDT [facility] MCV 84 80 - 100 fL 01/17/2024 10:25 PM CDT [facility] Blood BLOOD SPECIMEN / Unknown Venipuncture / Unknown 01/17/2024 8:11 AM CDT 01/17/2024 8:12 AM CDT Na Estes MD HEMATOLOGY Performing Organization Address City/[facility]/ZIP Co de Phone Number [facility] [address] [place] [address], * POTASSIUM (01/17/2024 8:11 AM CDT) Only the most recent of2 resultswithin the time period is included. POTASSIUM 4.0 3.5 - 5.1 mmol/L 01/17/2024 10:43 PM CDT [facility] Blood BLOOD SPECIMEN / Unknown Venipuncture / Unknown 01/17/2024 8:11 AM CDT 01/17/2024 8:12 AM CDT Na Estes MD CHEMISTRY Performing Organization Address City/[facility]/ZIP Co de Phone Number [facility] [address] [place] [id number], [place] * (ABNORMAL) UA W/ SEDIMENT EXAM REFLEXED PER CRITERIA (11/27/2023 7:45 AM CDT) Only the most recent of2 resultswithin the time period is included. COLOR Yellow Yellow Color 11/27/2023 8:53 AM CDT [facility] CLARITY Clear Clear Clarity 11/27/2023 8:53 AM CDT [facility] SPECIFIC GRAVITY,URINE 1.015 1.010, 1.015, 1.020, 1.025 11/27/2023 8:53 AM CDT [facility] PH,URINE 7.0 6.0, 7.0, 8.0, 5.5, 6.5, 7.5, 8.5 11/27/2023 8:53 AM CDT [facility] UROBILINOGEN,Q UALITATIVE Normal Normal EU/dl 11/27/2023 8:53 AM CDT [facility] PROTEIN, URINE Negative Negative mg/dL 11/27/2023 8:53 AM CDT [facility] GLUCOSE, URINE 100(A) Negative mg/dL 11/27/2023 8:53 AM CDT [facility] KETONES,URINE Negative Negative mg/dL 11/27/2023 8:53 AM CDT [facility] BILIRUBIN,URIN E Negative Negative 11/27/2023 8:53 AM CDT [facility] OCCULT BLOOD,URINE Negative Negative 11/27/2023 8:53 AM CDT [facility] NITRITE Negative Negative 11/27/2023 8:53 AM CDT [facility] LEUKOCYTE ESTERASE Negative Negative 11/27/2023 8:53 AM CDT [facility] Urine URINE SPECIMEN / Unknown Non-Blood / Unknown 11/27/2023 7:45 AM CDT 11/27/2023 8:49 AM CDT Na Estes MD URINE [facility] [address] [place] [address], [place] * (ABNORMAL) URINALYSIS MICROSCOPIC (11/15/2023 8:16 AM CDT) RBC 6-10(A) 0-2, None Seen /HPF 11/15/2023 8:38 AM CDT [facility] WBC >100(A) 0-2, 3-5, None Seen /HPF 11/15/2023 8:38 AM CDT [facility] BACTERIA Many(A) None Seen, Rare, Few Bacteria/H PF 11/15/2023 8:38 AM CDT [facility] EPITHELIAL CELLS Moderate(A ) None Seen, Few Epi/HPF 11/15/2023 8:38 AM CDT [facility] WHITE CELL CLUMPS Present(A) (none) 11/15/2023 8:38 AM CDT [facility] Urine URINE SPECIMEN / Unknown Non-Blood / Unknown 11/15/2023 8:16 AM CDT 11/15/2023 8:16 AM CDT Na Estes MD URINE [facility] [address] [place] [address], [place] * (ABNORMAL) URINE CULTURE (11/15/2023 8:16 AM CDT) CULTURE RESULT(A) 11/18/2023 7:07 AM CDT [facility] CULTURE >100,000 CFU/mL Escherichia coli 11/18/2023 7:07 AM CDT [facility] Urine URINE SPECIMEN / Unknown [...] NITROFURANTOIN <=16: S Na Estes MD MICROBIOLOGY [facility] [address] [place] [address], * (ABNORMAL) HEMOGLOBIN A1C MONITORING (POCT) (11/15/2023 8:16 AM CDT) [facility] HEMOGLOBIN A1C MONITORING (POCT) 7.4(H) <=6.4 % 11/15/2023 8:27 AM CDT [facility] Blood BLOOD SPECIMEN / Unknown Venipuncture / Unknown 11/15/2023 8:16 AM CDT 11/15/2023 8:16 AM CDT Narrative [facility] - 11/15/2023 8:27 AM CDT ? (<=6.9%) [...] Anemias, Splenectomy ? Na Estes MD CHEMISTRY [facility] [address] [place] [address], [place] * XR MAMMO BILAT SCREENING (07/07/2023 8:34 AM STUDENT OFFICER) Anatomical Region Laterality Modality BREASTS, Breast Left, Breast Right Bilateral Mammography Impressions 07/07/2023 12:59 PM STUDENT OFFICER ??There is no radiographic evidence for malignancy. ??Recommend annual mammograms. MAMMOGRAM ASSESSMENT: ??ACR 1 Negative PATIENTS: You will also receive a letter with your examination results in an easy to read format. ??If you have questions about your results, please contact your referring provider. Narrative 07/07/2023 12:59 PM STUDENT OFFICER For Patients: As a result of the Century Cures Act, medical imaging exams and procedure reports are released immediately into your electronic medical record. You may view this report before your referring provider. If you have questions, please contact your health care provider. XR MAMMO BILAT SCREENING [[id number]] CLINICAL HISTORY: ??This is an asymptomatic 53 y.o. patient. INDICATION FOR EXAM: Mammogram Screening. TECHNIQUE: CC & MLO views were obtained. ??This study was evaluated with the assistance of Computer-Aided Detection. COMPARISON FILM: Yes 06/17/22 [employer] [facility] 06/14/21 [facility] FINDINGS: ??The breasts have scattered areas of fibroglandular density. There are no dominant masses, suspicious micro calcifications or areas of architectural distortion. Yenni Sanchez AUTOMATIC EQUIPMENT TECHNICIAN MAMMO * LC LIPID PANEL AND CHOL/HDL RATIO (09/02/2022 7:35 AM STUDENT OFFICER) Cholesterol, Total 144 100 - 199 mg/dL 09/06/2022 11:06 PM STUDENT OFFICER [facility] Triglycerides 148 0 - 149 mg/dL 09/06/2022 11:[address] [facility] ([facility]) HDL Cholesterol 43 >39 mg/dL 11:[address] [facility] ([facility]) VLDL Cholesterol Blake 26 5 - 40 mg/dL 09/06/2022 11:[address] [facility] ([facility]) LDL Chol Calc (NIH) 75 0 - 99 mg/dL 09/06/2022 11:[address] [facility] ([facility]) T. Chol/HDL Ratio 3.3 0.0 - 4.4 ratio 09/06/2022 11:[address] [facility] ([facility]) Comment: ?T. Chol/HDL Ratio ?Men ??Women ?1/2 Avg.Risk ??3.4 ?3.3 ?Avg.Risk ??5.0 ?4.4 ? 2X Avg.Risk ??9.6 ?7.1 ? 3X Avg.Risk 23.4 ?? 11.0 Blood BLOOD SPECIMEN / Unknown Venipuncture / Unknown 09/02/2022 7:35 AM STUDENT OFFICER 09/02/2022 7:[address] [facility] ([facility]) - 09/06/2022 11:06 PM STUDENT OFFICER Performed at: ??01 - [facility] [address] ??[id number] Directional Survey Drafter: Ben Muñoz MD, Phone: ??[phone] Gita Marie MD SEND OUTS [facility] ([facility]) [address] [place] [id number] * ANTI HCV (02/25/2022 12:11 PM CDT) HEPATITIS C ANTIBODY Non-React josefina Non-React josefina 02/25/2022 11:20 PM CDT [facility] Comment:Antibodies to HCV no t detected; does not exclude the possibility of exposure to HCV. Blood BLOOD SPECIMEN / Unknown Venipuncture / Unknown 02/25/2022 12:11 PM CDT 02/25/2022 12:13 PM CDT Kell GUERRERO SEND OUTS [facility] [email or web address] [facility] [address] [place] [address], from Last 3 Months or Most Recently Relevant to Health Maintenance Advance Directives Documents on File Type Date Recorded Patient Sales And Distribution Clerk Expl anation Healthcare Directive 09/10/2022 023 Healthcare [...] 8:23 AM 09/27/2019 11:54 AM Care Teams Bricklayer Apprentice Relationship Specialty [place] [address] [place] [address] PCP - General Internal Medicine 06/12/23 Kar Soto MD Neurology 05/14/14 Olvin Vega MD [address] [facility] [address] [place] [address] Endocrinology 05/14/14 Bhaskar Page MD [address] [place] [address] [address] [place] [address] Gastroenterology 05/14/14 Major Chandler MBBS [address] [place] [address] Consulting Physician Cardiovascular Disease 02/05/19 Isak Nielson MD [address] [place] [address] Consulting Physician Cardiology - Electrophysiology 04/22/19 Jillian Daley NP [address] [place] [address] Nurse Practitioner Cardiology - Electrophysiology 07/31/19 Ania Avalos PsyD, [place] [address] [facility] [address] [place] [address] Psychologist Psychology 10/03/19
[2024-02-12] MEDS: 0.9 % SODIUM CHLORIDE 1000 ml 1,000 ML IV (19:45)
[2024-02-12] MEDS: METOCLOPRAMIDE HCL 5 MG/ML INJ 10 MG IV (19:45)
[2024-02-12 19:52] LABS: Basophils Absolute Auto 0.02 K/uL (0.00-0.30); Basophils Percent Auto 0.2 % (0.0-3.0); Eosinophils Absolute Auto 0.12 K/uL (0.00-0.50); Eosinophils Percent Auto 1.5 % (0.0-7.0); Hemoglobin* 9.3 gm/dL (12.0-16.0); Immature Granulocytes Abs Auto 0.07 K/uL (0.00-0.30); Immature Granulocytes Pct Auto 0.9 %; Mean Corpuscular HGB Conc 32 gm/dL (32-36); Mean Corpuscular Hemoglobin 26 pg (26-34); Mean Corpuscular Volume 82 fL (80-100); Monocytes Percent Auto 4.3 % (0.0-11.0); Neutrophils Percent Auto 78.1 % (42.0-72.0); Platelet Count* 259 K/uL (140-440); RDW Coefficient of Variation % 16.3 % (11.5-15.5); Red Blood Count 3.56 m/uL (4.00-5.20); White Blood Count* 8.07 K/uL (4.50-11.00)
[2024-02-12 19:54] LABS: Slide Review Reflex No
== END 2024-02-12 20:31 | disposition home or self-care (01) ==
PROVIDERS: Emergency Provider Emergency Medicine Emergency Medical Services
DX: R11.0 Nausea (principal); L03.115 Cellulitis of right lower limb
CPT/HCPCS: 36415; 85025; 96374; 99284; J2765; J7030

== ENCOUNTER 2024-03-26 13:43 | Outpatient (CLI) | payer MEDICARE, MEDICAID, SELFPAY ==
--- NOTE | 2024-03-26 14:00 | CRLHL7_ITS ---
For Patients: As a result of the Century Cures Act, medical imaging exams and procedure reports are released immediately into your electronic medical record. You may view this report before your referring provider. If you have questions, please contact your health care provider. Indication: post op rt knee replacement January 2024. pain swelling, acute embolism. Technique: Real-time longitudinal and transverse sonographic grayscale imaging with and without compression, as well as color and duplex Doppler imaging before and after augmentation, was obtained of the deep system of the right lower extremity, including the common femoral, femoral, popliteal, posterior tibial, and peroneal veins. Comparison: None. Findings: Common femoral vein: No evidence of thrombus. Femoral vein: No evidence of thrombus. Popliteal vein: No evidence of thrombus. Calf veins: Patent. Impression: No ultrasound evidence of deep venous thrombosis. Dictated by Skyler Gaytan MD @ 03/26/2024 3:00:44 PM (Electronically Signed)
== END 2024-03-26 13:44 | disposition home or self-care (01) ==
PROVIDERS: Visit Provider Physician Assistant Surgical
DX: I82.409 Acute embolism and thrombosis of unspecified deep veins of unspecified lower extremity (principal); M79.661 Pain in right lower leg
CPT/HCPCS: 93971

== ENCOUNTER 2024-04-03 14:26 | Outpatient (CLI) | payer MEDICARE, MEDICAID, SELFPAY ==
--- OUTSIDE RECORDS SUMMARY | 2024-04-03 14:30 | XMS_ITS | Encounter Summary ---
Author Organization [facility] Address [address] [place] [address] Care Team Providers Care Emulsification Operator Name Role Phone Elsewhere, Pcp Primary Care Provider Unavailabl e Encounter Details Date Type Department Care Team (Late st Contact Info) Description 01/16/2024 Clinical Communication Division of Pain Medicine in [place], [place] [address] [place] [phone] Amelia Salgado APRN, REGIONAL MARKETING DIRECTOR, D.N.P. [address] [place] [address] Social History Tobacco Use Types Packs/Day Years Used Date Smoking Tobacco: Never Passive Smoke Exposure: Current Smokeless Tobacco: Never Alcohol Use Standard Drinks/Week Comments Not Currently 0 (1 standard drink = 0.6 oz pur e alcohol) Maybe 1-2 drinks a year [facility] Utilities Answer Date Recorded In the [...] often do you attend chur ch or gnosticist services? Never 09/27/2022 Do you belong to any clubs o r organizations such as confucianist groups, unions, fraternal or athletic groups, or [...] and heating? Not hard at all 01/05/2023 [facility] [place] [facility] Occupat ional [facility] - Occupational Stress [...] money to buy more. Never true 12/17/19 Within the past 12 months, t he [...] your living situation today? I have a [facility] place to live 12/17/2023 Education Answer Date [...] as of this encounter Plan of Treatment Not on file documented as of this encounter Visit Diagnoses Not on filedocumented in this encounter Care Teams Emulsification Operator Relationship Specialty Start Date End Date Elsewhere, Pcp PCP - General Internal Medicine 09/30/22 documented as of this encounter
--- OUTSIDE RECORDS SUMMARY | 2024-04-03 14:30 | XMS_ITS | Encounter Summary ---
Author Organization [facility] Address [address] [place] [address] Care Team Providers Care Coat Hanger Shaper Machine Operator Name Role Phone Elsewhere, Pcp Primary Care Provider Unavailabl e Reason for Referral * Outpatient (Routine) - Authorized Specialty Diagnoses / Procedures Referred By Edgar aaron Referred To Contact Diagnoses Myofascial Pain Syndrome Myalgia Pain Sacroiliac Procedures PM Trigger point injection Amelia Salgado APRN, CNS, D.N.P. [address] [place] [address] [facility] Referral ID Status Reason Start Date Expiration Date V isits Requested Visits Authorized [id number] Authorized 03/12/2024 03/12/2025 1 1 Reason for Visit * Outpatient (Routine) - Closed Specialty Diagnoses / Procedures Referred By Edgar aaron Referred To Contact Diagnoses Myofascial Pain Syndrome Procedures PM Trigger point injection Amelia Salgado APRN, CNS, D.N.P. [address] [place] [address] [facility] Referral ID Status Reason Start Date Expiration Date Visits Re quested Visits Authorized [id number] Closed 12/22/2023 12/21/2024 1 1 Encounter Details Date Type Department Care Team (Latest Contact Info) Description 03/12/2024 10:00 AM CDT Procedure visit Division of Pain Medicine in [place], [place] [address] [place] [address] Amelia Salgado APRN, BINDER AND WRAPPER PACKER, D.N.P. [address] [place] [address] Myalgia (Primary Dx); Myofascial Pain Syndrome; Pain Sacroiliac Social History Tobacco Use Types Packs/Day Years Used Date Smoking Tobacco: Never Passive Smoke Exposure: Current Smokeless Tobacco: Never Alcohol Use Standard Drinks/Week Comments Not Currently 0 (1 standard drink = 0.6 oz pur e alcohol) Maybe 1-2 drinks a year [facility] [employer] Answer Date Recorded In the past 12 months has [employer], gas, oil, or water [employer] threatened to shut off services in your [...] week 09/27/2022 How often do you attend [facility] or church services? Never 09/27/2022 Do you belong to any clubs o r organizations such as advent groups, unions, fraternal or athletic groups, or [...] and heating? Not hard at all 01/05/2023 [facility] - Occupational Stress Questionnaire Answer Date [...] have a [facility] place to live 12/17/2023 Education Answer Date [...] * Amelia Salgado APRN, CNS, D.N.P. - 03/12/2024 10:00 AM CDTAssociated Order(s): PM Trigger point injection Pre-Procedure Diagnose(s): Myofascial Pain Syndrome Post-Procedure Diagnose(s): Myofascial Pain Syndrome PM Trigger point injection (left lumbar, right lumbar, left PSIS and right PSIS) Performed by: Amelia Salgado APRN, CNS, D.N.P. Authorized by: Amelia Salgado APRN, CNS, D.N.P. Care team members present 1. Amelia Salgado APRN, CNS, D.N.P. PROCEDURE SUMMARY Indication: lumbar myalgia Pre procedure pain score: 6/10 Post procedure pain score: 2/10 Soft tissue site: left lumbar, right lumbar, left PSIS and right PSIS Lumbar: 1 on the right and 1 on the left at the L4-5 region Lumbar position: prone PSIS: PSIS position: prone Needle size: 25 [...] appropriate position. Prior to the procedure, the lumbar [...] was marked if required. A fire risk and smoke assessment were done as applicable. The procedural time-out to verify correct patient, correct side/site, and procedure was conducted prior to performing the procedure and confirmed in a procedural pause. PRE-PROCEDURE DETAILS Appropriate hand hygiene, gown, cap, mask, protective eyewear, sterile gloves, skin preparation, sterile drape, and strict aseptic technique were utilized as applicable for the procedure. Skin preparation: chlorhexidine POST-PROCEDURE DETAILS Comments This patient has been evaluated and found to meet the criteria for treatment with a trigger point injection. There is a focal area of pain in the skeletal muscle. There is clinical evidence of a trigger point defined as pain in a skeletal muscle with the following characteristics (need at least 2): Physical examination identified a focal hypersensitive bundle or nodule of muscle fiber harder thannormal consistency with or without a local twitch response and referred pain Non-invasive conservative therapy was not successful as first line treatment The patient's pre-injection pain score today is 6/10. Insurance guidelines reviewed and patient would like to proceed with local +corticosteroid. ABN singed. documented in this encounter Plan of Treatment Not on file documented as of this encounter Procedures Procedure Name Priority Date/Time Associated Diagnosis Comments UT INJ TRIGGER PNT<=2 MUS Routine 03/12/2024 10:00 AM CDT Myofascial Pain Syndrome documented in this encounter Results * UT INJ TRIGGER PNT<=2 MUS (03/12/2024 10:00 AM CDT) Narrative [facility] - 03/12/2024 10:00 AM CDT Amelia Salgado APRN, CNS, D.N.P. ? 03/12/2024 12:16 PM PM Trigger point injection (left lumbar, right lumbar, left PSIS and right PSIS) Performed by: Amelia Salgado APRN, CNS, D.N.P. Authorized by: Amelia Salgado APRN, CNS, D.N.P. ?? Care team members present 1. Amelia Salgado APRN, CNS, D.N.P. PROCEDURE SUMMARY ?? Indication: lumbar myalgia Pre procedure pain score: 6/10 Post procedure pain score: 2/10 Soft tissue site: left lumbar, right lumbar, left PSIS and right PSIS Lumbar: 1 on the right and 1 on the left at the L4-5 region Lumbar position: prone PSIS: PSIS position: prone Needle size: 25 [...] appropriate position. ??Prior to the procedure, the lumbar [...] was marked if required. A fire risk and smoke assessment were done as applicable. The procedural time-out to verify correct patient, correct side/site, and procedure was conducted prior to performing the procedure and confirmed in a procedural pause. PRE-PROCEDURE DETAILS Appropriate hand hygiene, gown, cap, mask, protective eyewear, sterile gloves, skin preparation, sterile drape, and strict aseptic technique were utilized as applicable for the procedure. ?? Skin preparation: chlorhexidine POST-PROCEDURE DETAILS ?? Comments This patient has been evaluated and found to meet the criteria for treatment with a trigger point injection. There is a focal area of pain in the skeletal muscle. There is clinical evidence of a trigger point defined as pain in a skeletal muscle with the following characteristics (need at least 2): Physical examination identified a focal hypersensitive bundle or nodule of muscle fiber harder than normal consistency with or without a local twitch response and referred pain Non-invasive conservative therapy was not successful as first line treatment The patient's pre-injection pain score today is 6/10. Insurance guidelines reviewed and patient would like to proceed with local +corticosteroid. ABN singed. Amelia Salgado APRN, BHANU, D.N.P. PROCE DURE/MINOR SURGICAL ORDERABLES [facility] NA documented in this encounter Visit Diagnoses Diagnosis Myalgia- Primary Myofascial Pain Syndrome Pain Sacroiliac documented in this encounter Administered Medications Inactive Administered Medications - up to 3 most recent administrations Medication Order MAR Action Action Date Dose Rate Site BUPivacaine 0.5 % (5 mg/mL) injection 5 mL (Marcaine) 5 mL, injection, One-Time Injection, Starting on Mon03/12/24 at 1000, For 1 dose Given 03/12/2024 10:00 AM CDT 5 mL lidocaine 10 mg/mL (1 %) injection 4 mL (Xylocaine) 4 mL, injection, One-Time Injection, Starting on Mon03/12/24 at 1000, For 1 dose Given 03/12/2024 10:00 AM CDT 4 mL triamcinolone acetonide injection 40 mg (Kenalog-40) 40 mg, injection, One-Time Injection, Starting on Mon03/12/24 at 1000, For 1 dose Given 03/12/2024 10:00 AM CDT 40 mg documented in this encounter Care Teams Coat Hanger Shaper Machine Operator Relationship Specialty Start Date End Date Elsewhere, Pcp PCP - General Internal Medicine 09/30/22 documented as of this encounter
--- OUTSIDE RECORDS SUMMARY | 2024-04-03 14:30 | XMS_ITS | Encounter Summary ---
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 [address] [place] [address] 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 [address] [place] [address] [facility] Referral ID Status Reason Start Date Expiration Date Visits Re quested Visits Authorized [id number] Closed 01/04/2024 05/02/2024 1 1 Encounter Details Date Type Department Care Team (Latest Contact Info) Description 01/26/2024 9:11 AM CDT - 01/26/2024 11:59 PM CDT Hospital Encounter Division of Pain Medicine in [place], [place] [address] [place] [address] Amelia Salgado, DANYEL, CREDIT REVIEW MANAGER, D.N.P. 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 Never 09/27/2022 Do you belong to any clubs o r organizations such as hinduism groups, unions, fraternal or athletic groups, or [...] your living situation today? I have a [facility] place to live 12/17/2023 Education Answer [...] (NexIUM) [address] capsule daily. 09/22/2022 Fiasp FlexTouch U-100 Insulin 100 unit/mL (3 mL) pen 12/28/2023 insulin lispro 100 unit/mL injection 3 (three) times a day. 09/02/2022 insulin lispro, Carbohydrate Count, 100 unit/mL insulin pen Inject 40 Units under the skin as needed. 07/31/2023 insulin syringe-needle U-100 0.3 mL 31 gauge x 16 syringe daily. 01/28/2020 ketorolac (TORADOL) 30 mg/mL [...] mouth at bedtime. 90 tablet 3 10/24/2023 UltiCare Pen Needle 31 gauge x 5/16 needle USE FOR ADMINISTERING INSULIN AT HOME 08/03/2022 Trulicity 4.5 mg/0.5 mL injection Inject 4.5 mg under the skin once a week. 07/10/2023 03/12/2024 documented as of this encounter Procedure Notes [...] CNS, D.N.P. Care team members present 1. Brie Estes L.P.N. PROCEDURE SUMMARY Indications: Spondylosis without myelopathy Pre-procedural pain: 7/10 Post-procedural pain: 7/10 Site: lumbar Lumbar: medial branch radiofrequency Radiofrequency [...] M.D. Authorized by: Amelia Salgado APRN, BHANU, D.NShamikaP. ?? Care team members present 1. Brie [...] loss: 0 Implants: 0 Amelia Salgado APRN, CREDIT REVIEW MANAGER, D.N.P. FLUOR O GUIDED PAIN PROCEDURES Performing Organization Address [facility] Co de Phone Number MMODAL NA * (ABNORMAL) Glucose, POCT (01/26/2024 9:32 AM CDT) Glucose, POCT, B 152(H) 70 - 140 mg/dL 01/26/2024 9:49 AM CDT [facility] Site Capillary 01/26/2024 9:49 AM CDT [facility] Blood 01/26/2024 9:32 AM CDT 01/26/2024 9:49 AM CDT Unknown Provider LAB POCT ORDERABLES- MANUAL Performing Organization Address [facility] Co de Phone Number [facility] [address] [place] [address], [facility] POC [address] [place] [address] documented in this encounter Visit Diagnoses Diagnosis [...] mg documented in this encounter Care Teams Web Editor Relationship Specialty Start Date End Date Elsewhere, Pcp PCP - General Internal Medicine 09/30/22 documented as of this encounter
--- OUTSIDE RECORDS SUMMARY | 2024-04-03 14:30 | XMS_ITS | Clinical Summary ---
Author Organization [facility] Address [address] [place] [address] Care Team Providers Care Street Vendor Name Role Phone Elsewhere, Pcp Primary Care Provider Unavailabl e Source Comments Patient records contain information from all sites at [facility]. For routine questions regarding patient records, call [phone] during business hours, M-F 8:00 AM - 5:00 PM Central Time. Record requests for emergency care only can be directed to [phone] at any time.[facility] Allergies Active Allergy Reactions Criticality Noted Date [...] mL 31 gauge x 516 syringe daily. 01/28/20 Active scopolamine base (TRANSDERM SCOP) 1 mg over [address] 1 patch on the skin every third day as needed. 06/03/20 Active acetaminophen (TYLENOL) 500 mg tablet Take 2 tablets by mouth as needed. Active blood sugar diagnostic strips (Blood Glucose Test Strips) Test 3 times per day. Contour Next test JUDE ASCE 12/21/19 Active blood-glucose meter kit Dispense meter, test strips, lancets covered by pt ins. E11.9 NIDDM type II - Test 4 times/day. Reason: High A1C 09/01/19 Active dihydroergotamine (DHE) 1 mg/mL injection Inject [...] mcg tablet daily. 09/04/19 23 Active lisinopriL (PRINIVIL,ZESTRIL) 5 mg tablet Take 5 mg by mouth daily. 09/04/19 23 Active lorata-dine D 10-240 mg per 24 hr tablet Take 1 tablet by mouth at bedtime. 09/04/19 23 Active metoprolol succinate (TOPROL-XL) 25 mg 24 hr tablet Take 25 mg by mouth daily. 07/06/20 22 Active nystatin (NYSTOP) 100,000 unit/gram powder Apply 1 strip topically as needed. 03/09/20 21 Active ondansetron (ZOFRAN) 4 mg tablet as needed. 12/08/19 Active oxyCODONE-acetamin ophen (PERCOCET) 5-325 mg per tablet Take 1 tablet by mouth as needed. 03/18/20 22 Active UltiCare Pen Needle 31 gauge x 516 needle USE FOR ADMINISTERING INSULIN AT HOME 08/03/19 Active pramipexole (MIRAPEX) 0.25 mg tablet Take 3-4 Tablets (0.75-1 mg) by mouth at bedtime. 09/04/19 Active citalopram (CeleXA) 20 mg tablet Take 30 mg by mouth every morning. 12/10/19 Active polyethylene glycol (Miralax) 17 gram/dose oral powder Take 17 g by mouth daily. 06/19/20 23 Active BD PrecisionGlide 25 gauge x 1 needle as needed. 08/21/19 24 Active BD Filter Needle-5 Micron 19 x 1 2 needle as needed. 08/21/19 24 Active Monoject Regular Luer 3 mL syringe as needed. 08/21/19 24 Active tiZANidine (ZANAFLEX) 4 mg tablet Take 1 tablet (4 mg total) by mouth at bedtime. 90 tablet 3 10/24/19 24 Active pregabalin (LYRICA) 300 mg capsule Take 1 capsule (300 mg total) by mouth 2 (two) times a day. 180 capsule 3 10/24/19 24 Active oxyCODONE (ROXICODONE) 5 mg immediate release tablet Take 5 mg by mouth as needed. Active senna 8.6 mg tablet Take 8.6 mg by mouth at bedtime as needed for constipation. 11/21/19 24 Active sodium fluoride-pot nitrate 1.1-5 % paste Apply 1 Application to teeth at bedtime. 11/21/19 24 Active atorvastatin (Lipitor) 40 mg tablet Take 40 mg by mouth daily. 07/31/19 Active cyclobenzaprine (FLEXERIL) 10 mg tablet Take 10 mg by mouth as needed. 07/31/19 24 Active blood sugar diagnostic strips 1 test by other route 3 (three) times a day. 11/13/19 24 Active cyproheptadine (PERIACTIN) 4 mg tablet Take 4 mg by mouth as needed. 11/20/19 24 Active ketorolac (TORADOL) 30 mg/mL injection Inject 30 mg intramuscularly as needed for pain. 11/13/19 24 Active dulaglutide (TRULICITY) 4.5 mg/0.5 mL injection Inject 4.5 mg under the skin every 7 (seven) days. 11/20/19 24 Active insulin lispro, Carbohydrate Count, 100 unit/mL insulin pen Inject 40 Units under the skin as needed. 07/31/19 24 Active Fiasp FlexTouch U-100 Insulin 100 unit/mL (3 mL) pen 12/28/19 24 Active metoclopramide (Reglan) 10 mg tablet Take 10 mg by mouth every 6 (six) hours as needed. 02/13/20 24 Active Trulicity 4.5 mg/0.5 mL injection Inject 4.5 mg under the skin once a week. 07/10/20 024 Discontinued Hospital, Clinic, or Other Facility [...] Encounters Date Type Department Care Team Description 03/12/2024 10:00 AM CDT Procedure visit Division of Pain Medicine in [place], [place] [address] [place] [phone] Amelia Salgado APRN, HERD TESTER, D.N.P. Myalgia (Primary Dx); Myofascial Pain Syndrome; Pain Sacroiliac 03/08/2024 Orders Only Division of Pain Medicine in [place], [place] [address] [place] [phone] Amelia Salgado APRN, HERD TESTER, D.N.P. Occipital Neuralgia (Primary Dx); Headache Chronic 01/26/2024 9:11 AM CDT - 01/26/2024 11:59 PM CDT Hospital Encounter Division of Pain Medicine in [place], [place] [address] [place] [phone] Amelia Salgado APRN, HERD TESTER, D.N.P. Pain Low Back Unspecified; Spondylosis Lumbar Without Myelopathy Discharge Disposition: Home or Self Care 01/16/2024 Clinical Communication Division of Pain Medicine in [place], [place] [address] [place] [phone] Amelia Salgado APRN, BHANU, D.N.P. 01/04/2024 Clinical Communication Division of Pain Medicine in [place], [place] [address] [place] [phone] Amelia Salgado APRN, BHANU, D.N.P. from Last 3 Months Family History Medical [...] Tesfaye Father's Brother Tam Father's Sister 1 Sonlai Father's Sister 2 Juan Maternal Grandfather Abdelrahman [...] e alcohol) Maybe 1-2 drinks a year [facility] Utilities Answer Date Recorded In the past 12 months has e [email or web address], oil, or water [employer] threatened to shut off services in your [...] How often do you attend chur or yazdanism services? Never 09/27/2022 Do you belong to any clubs o r organizations such as moravian groups, unions, fraternal or athletic groups, or [...] and heating? Not hard at all 01/05/2023 [facility] of Occupat ional Health - Occupational Stress [...] your living situation today? I have a [facility] place to live 12/17/2023 Education Answer [...] 10/04/2022 9:10 AM CDT Plan of Treatment Health Maintenance Due Date Last Done Comments CT Colonography 1971 Cologuard 1971 Colonoscopy 1971 Colorectal Cancer Screening 1971 FIT 1971 HIV Screening 1971 Hepatitis C Screening 1971 Mammogram 1971 Office Visit for Blood Pressure Check / Re-check 01/04/2023 10/04/2022 Depression Screening (Annual PHQ-2) 07/17/2023 Thyroid Stimulating Hormone (TSH) test for thyroid function 02/15/2024 02/14/2023, 09/23/2022, 12/17/2021, Additional history exists COVID-19 Vaccine (2022- season) 2024 04/02/2022, 10/08/2021, 05/04/2021, Additional history exists Influenza Vaccine (#1) 2024 Creatinine Level (Kidney Function Test) 06/12/2024 06/12/2023, 03/07/2023, 12/01/2022, Additional history exists Sodium Level 06/12/2024 06/12/2023, 08/2 08/2022, 12/01/2022, Additional history exists Potassium Level [...] this topic Medical Devices Implanted Type Area Farm Equipment Technician Device Identifier Shelf Expiration Date Model / Serial / Lot Knee Implant-11/21/19 24 Implanted:/0 01/2024 (Quantity not on file) Knee Implant Left: Knee Procedures Procedure Name Priority Date/Time Associated Diagnosis Comments VT INJ TRIGGER PNT<=2 MUS Routine 03/12/2024 10:00 AM CDT Myofascial Pain Syndrome FL LUMBAR SPINE RADIOFREQUENCY DENERVATION Routine 01/26/2024 10:32 AM CDT Pain Low Back 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 GLUCOSE POCT, B Routine 01/26/2024 9:32 AM CDT from Last 3 Months Results * VT INJ TRIGGER PNT<=2 MUS (03/12/2024 10:00 AM [...] NA * FL Lumbar Spine Radiofrequency Denervation (01/26/2024 [...] loss: 0 Implants: 0 Amelia Salgado APRN, HERD TESTER, D.N.P. FLUOR O GUIDED PAIN PROCEDURES MMODAL NA * (ABNORMAL) Glucose, POCT (01/26/2024 9:32 AM CDT) Glucose, POCT, B 152(H) 70 - 140 mg/dL 01/26/2024 9:49 AM CDT PCMO Site Capillary 01/26/2024 9:49 AM CDT PCMO Blood 01/26/2024 9:32 AM CDT 01/26/2024 9:49 AM CDT Unknown Provider LAB POCT ORDERABLES- MANUAL [facility] [address] [place] [address], [facility] PCMO [facility] POC [address] [place] [address] from Last 3 Months Advance Directives For more information, please contact: [phone] Documents on File Type Date Recorded Patient Supervisor Coil Winding Expl anation Advance Directives 10/05/2022 8:01 PM Arlen Jenkins Kathe MadridGeorkuldeep Rincon HCPOA/ADVOCATE/AGENT/R EPRESENTATIVE/SURROGAT E Healthcare Agents on File Name Relationship Healthcare Agent Relationship Communication Arlen [place] Mother Health Care Agent [email or web address] [place] Brother First Alternate Health Care Agent Elena Rincon Friend Second [facility] Health Care Agent Care Teams Street Vendor Relationship Specialty Start Date End Date Elsewhere, Pcp PCP - General Internal Medicine 09/30/22
--- OUTSIDE RECORDS SUMMARY | 2024-04-03 14:30 | XMS_ITS ---
Author Organization [facility] Address [address] [place] [address] Care Team Providers Care Cert Pharmacy Tech Name Role Phone Unavailable Unavailable Unavailable Surgery Details Not on file Complications Check Surgery Details section. Procedure Estimated Blood Loss Check Surgery Details section. Procedure Findings Check Surgery Details section. Procedure Specimens Taken Check Surgery Details section.
--- OUTSIDE RECORDS SUMMARY | 2024-04-03 14:30 | XMS_ITS | Clinical Summary ---
Author Organization [facility] Address [address] [place] [address] Care Team Providers Care Senior Quality Analyst Name Role Phone Kell Pan PA-C [...] for each transition of care or referral. [employer] Allergies Active Allergy Reactions Criticality Noted Date [...] Date Localized osteoarthritis of left knee 04/06/2020 Overview (04/06/2020): severe PF Complex tear of lateral meni [...] Comments Blood Pressure 109/68 07/05/2022 11:20 AM CLEAT MAKER Pulse 79 07/05/2022 11:20 AM CLEAT MAKER Temperature - - Respiratory Rate 17 07/05/2022 11:20 AM CLEAT MAKER Oxygen Saturation - - Inhaled Oxygen Concentration [...] 1971 Hep C Screening (Preventive Services) 1971 MTM Covered 1971 HIV Screening (Preventive Services) 1987 Adult Preventive Visit 1989 HepB (1) 1990 Mammogram 04/15/2021 04/15/2020 Diabetes: Eye Exam 02/23/2022 02/23/2021 Diabetes: HGBA1C 09/12/2023 06/12/2023, , 03/07/2023, Additional history exists COVID-19 Vaccine ( season) 2024 04/02/2022, 10/08/2021, 05/04/2021, Additional history exists Influenza (#1) 2024 DTaP/Tdap/Td [...] age to complete this topic Care Teams Senior Quality Analyst Relationship Specialty Start Date End Date Kell Pan PA-C PCP - General Physician Appointment Coordinator 02/06/20
--- OUTSIDE RECORDS SUMMARY | 2024-04-03 14:30 | XMS_ITS | Referral Summary ---
Author Organization [facility] Address [address] [place] [address] Care Team Providers Care Customs Compliance Manager Name Role Phone Elsewhere, Pcp Primary Care Provider Unavailabl e Source Comments Patient records contain information from all sites at [facility]. For routine questions regarding patient records, call [phone] during business hours, M-F 8:00 AM - 5:00 PM Central Time. Record requests for emergency care only can be directed to [phone] at any time.[facility] Encounters Date Type Department Care Team Description 03/12/2024 10:00 AM CDT Procedure visit Division of Pain Medicine in [place], [place] [address] [place] [address] Amelia Salgado APRN, PATHOLOGICAL TECHNICIAN, D.N.P. Myalgia (Primary Dx); Myofascial Pain Syndrome; Pain Sacroiliac 03/08/2024 Orders Only Division of Pain Medicine in [place], [place] [address] [place] [address] Amelia Salgado APRN, PATHOLOGICAL TECHNICIAN, D.N.P. Occipital Neuralgia (Primary Dx); Headache Chronic 01/26/2024 9:11 AM CDT - 01/26/2024 11:59 PM CDT Hospital Encounter Division of Pain Medicine in [place], [place] [address] [place] [address] Amelia Salgado APRN, PATHOLOGICAL TECHNICIAN, D.N.P. Pain Low Back Unspecified; Spondylosis Lumbar Without Myelopathy Discharge Disposition: Home or Self Care 01/16/2024 Clinical Communication Division of Pain Medicine in [place], [place] [address] [place] [address] Amelia Salgado APRN, BHANU, D.N.P. 01/04/2024 Clinical Communication Division of Pain Medicine in [place], [place] [address] [place] [address] Amelia Salgado APRN, BHANU, D.N.P. from Last 3 Months Allergies Active Allergy [...] mL 31 gauge x 5/16 syringe daily. 01/28/20 20 Active scopolamine base (TRANSDERM SCOP) 1 mg [...] injection 2 (two) times a day. 09/04/19 Active insulin lispro 100 unit/mL injection 3 [...] by mouth every morning. 12/10/19 23 Active polyethylene glycol (Miralax) 17 gram/dose [...] Take 40 mg by mouth daily. 07/31/19 24 Active cyclobenzaprine (FLEXERIL) 10 mg tablet Take [...] the skin once a week. 07/10/20 23 024 Discontinued Hospital, Clinic, or Other [...] e alcohol) Maybe 1-[address] [facility] Sofeaities Answer Date Recorded In the past 12 months has e electric, gas, oil, or water [employer] threatened to shut off services in your [...] often do you attend chur ch or anabaptism services? Never 09/27/2022 Do you belong to any clubs o r organizations such as latter day groups, unions, fraternal or athletic groups, or [...] and heating? Not hard at all 01/05/2023 [facility] [place] of Occupat ional Health - Occupational Stress [...] Date Recorded Dental: Regular Dentist Yes 09/28/19 23 Employment Answer Date Recorded Employment status Employed [...] 10/04/2022 9:10 AM CDT Plan of Treatment Not on file Medical Devices Implanted Type Area Knapsack Sprayer Device Identifier Shelf Expiration Date Model / Serial / Lot Knee Implant-11/21/19 24 Implanted:05/0 01/2024 (Quantity not on file) Knee Implant Left: Knee Procedures Procedure Name Priority Date/Time Associated Diagnosis Comments IN INJ TRIGGER PNT<=2 MUS Routine 03/12/2024 10:00 AM CDT Myofascial Pain Syndrome FL LUMBAR SPINE RADIOFREQUENCY DENERVATION Routine 01/26/2024 10:32 AM CDT Pain Low Back 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 GLUCOSE POCT, B Routine 01/26/2024 9:32 AM CDT from Last 3 Months Results * IN INJ TRIGGER PNT<=2 MUS (03/12/2024 10:00 AM CDT) Narrative MMODAL - 03/12/2024 10:00 AM CDT Amelia Salgado APRN, CNS, D.N.P. ? 03/12/2024 12:16 PM PM Trigger point injection (left lumbar, right lumbar, left PSIS and right PSIS) Performed by: Amelia Salgado APRN, CNS, D.N.P. Authorized by: Amelia Salgado APRN, CNS, D.NShamikaP. ?? Care team members present 1. Amelia [...] local +corticosteroid. ABN singed. Amelia Salgado APRN, PATHOLOGICAL TECHNICIAN, D.N.P. PROCE DURE/MINOR SURGICAL ORDERABLES MMODAL NA * FL Lumbar Spine Radiofrequency Denervation (01/26/2024 10:32 AM CDT) Narrative MMODAL - 01/26/2024 10:30 AM CDT Robert Gibbons M.D. ? 01/26/2024 10:41 AM FL Lumbar Spine Radiofrequency Denervation Performed by: Robert Gibbons M.D. Authorized by: Amelia Salgado APRN, Boris DRUMMONDNShamikaPShamika ?? Care team members present 1. Brie [...] loss: 0 Implants: 0 Amelia Salgado APRN, PATHOLOGICAL TECHNICIAN, D.N.P. FLUOR O GUIDED PAIN PROCEDURES Performing Organization Address [facility] Co de Phone Number MMODAL NA * (ABNORMAL) Glucose, POCT (01/26/2024 9:32 AM CDT) Glucose, POCT, B 152(H) 70 - 140 mg/dL 01/26/2024 9:49 AM CDT PCMO Site Capillary 01/26/2024 9:49 AM CDT PCMO Blood 01/26/2024 9:32 AM CDT 01/26/2024 9:49 AM CDT Unknown Provider LAB POCT ORDERABLES- MANUAL Performing Organization Address [facility] Co de Phone Number [facility] [address] [place] [address], [facility] POC [address] [place] [address] from Last 3 Months Advance Directives For more information, please contact: [phone] Documents on File Type Date Recorded Patient Magazine Writer Expl anation Advance Directives 10/05/2022 8:01 PM Arlen Jenkins Kathe Rincon HCPOA/ADVOCATE/AGENT/R EPRESENTATIVE/SURROGAT E Healthcare Agents on File Name Relationship Healthcare Agent Relationship Communication Arlen Madrid Mother Health Care Agent [email or web address] [place] Brother First Alternate Health Care Agent Elena Rincon Friend Second Alternate Health Care Agent Care Teams Customs Compliance Manager Relationship Specialty Start Date End Date Elsewhere, Pcp PCP - General Internal Medicine 09/30/22
--- OUTSIDE RECORDS SUMMARY | 2024-04-03 14:30 | XMS_ITS | Encounter Summary ---
Author Organization [facility] Address [address] [place] [address] Care Team Providers Care Security Inspector Name Role Phone Elsewhere, Pcp Primary Care Provider Unavailabl e Reason for Referral * Outpatient (Routine) - Authorized Specialty Diagnoses / Procedures Referred By Contac t Referred To Contact Diagnoses Headache Chronic Occipital Neuralgia Procedures PM Nerve Block injection Occipital; Greater, Lesser; Proceduralist Choice; Bilateral Amelia Salgado APRN, CNS, D.N.P. [address] [place] [phone] [facility] Referral ID Status Reason Start Date Expiration Date V isits Requested Visits Authorized [id number] Authorized 03/08/2024 03/08/2025 1 1 * Outpatient (Routine) - Authorized Specialty Diagnoses / Procedures Referred By Contac t Referred To Contact Pain Medicine Amelia Salgado APRN, CNS, D.N.P. [address] [place] [phone] Robert Gibbons M.D. [address] [place] [phone] Referral ID Status Reason Start Date Expiration Date V isits Requested Visits Authorized [id number] Authorized 03/08/2024 09/07/2025 1 1 Scheduling Instructions On a day Dr. Gibbons is staffing APPs/fellows. Will have clinic visit to discuss headaches with procedure visit to follow (occipital nerve blocks) if appropriate. Will be ordering non-guided ONB injection, not sure if fellows do this at bedside, if not potential Dr. Gibbons could perform Encounter Details Date Type Department Care Team (Late st Contact Info) Description 03/08/2024 Orders Only Division of Pain Medicine in [place], [place] [address] [place] [phone] Amelia Salgado APRN, BHANU, D.N.P. [address] [place] [phone] Occipital Neuralgia (Primary Dx); Headache Chronic Social History Tobacco Use Types Packs/Day Years Used Date Smoking Tobacco: Never Passive Smoke Exposure: Current Smokeless Tobacco: Never Alcohol Use Standard Drinks/Week Comments Not Currently 0 (1 standard drink = 0.6 oz pur e alcohol) Maybe 1-2 drinks a year [facility] Utilities Answer Date Recorded In the past 12 months has [facility] [employer], gas, oil, or water Agency [employer] threatened to shut off services in your [...] often do you attend chur ch or mormonism services? Never 09/27/2022 Do you belong to any clubs o r organizations such as presybeterian groups, unions, fraternal or athletic groups, or [...] and heating? Not hard at all 01/05/2023 [facility] - Occupational Stress Questionnaire Answer Date [...] your living situation today? I have a [facility] place to live 12/17/2023 Education [...] as of this encounter Plan of Treatment Scheduled Referrals Name Type Priority Associated Diagnoses Orde r Schedule Pain Medicine office visit (clinic) Outpatient Referral Routine Expected: 03/08/2024, Expires: 06/08/2025 documented as of this encounter Visit Diagnoses Diagnosis Occipital Neuralgia- Primary Headache Chronic documented in this encounter Care Teams Security Inspector Relationship Specialty Start Date End Date Elsewhere, Pcp PCP - General Internal Medicine 09/30/22 documented as of this encounter
--- OUTSIDE RECORDS SUMMARY | 2024-04-03 14:31 | XMS_ITS | Encounter Summary ---
Author Organization [facility] Address [address] [place] [address] Care Team Providers Care Area Relief Pilot Name Role Phone Elsewhere, Pcp Primary Care Provider Unavailabl e Encounter Details Date Type Department Care Team (Late st Contact Info) Description 01/04/2024 Clinical Communication Division of Pain Medicine in [place], [place] [address] [place] [phone] Amelia Salgado APRN, CABLEWAY OPERATOR, D.N.P. [address] [place] [phone] Social History Tobacco Use Types Packs/Day Years Used Date Smoking Tobacco: Never Passive Smoke Exposure: Current Smokeless Tobacco: Never Alcohol Use Standard Drinks/Week Comments Not Currently 0 (1 standard drink = 0.6 oz pur e alcohol) Maybe 1-2 drinks a year [facility] Utilities Answer Date Recorded In the [...] any clubs o r organizations such as yazidism groups, unions, fraternal or athletic groups, or [...] and heating? Not hard at all 01/05/2023 [facility] [place] [facility] - Occupational Stress [...] your living situation today? I have a [facility] place to live 12/17/2023 Education Answer Date [...] on filedocumented in this encounter Care Teams Area Relief Pilot Relationship Specialty Start Date End Date Elsewhere, Pcp PCP - General Internal Medicine 09/30/22 documented as of this encounter
--- OUTSIDE RECORDS SUMMARY | 2024-04-03 14:31 | XMS_ITS | Clinical Summary ---
Author Organization [facility] Address [place], [place] [address] Care Team Providers Care Inspector Casing Name Role Phone Kar Soto MD Unavailable Olvin Vega MD Unavailable Bhaskar Page MD Unavailable Major Chandler MBBS Unavailable Isak Nielson MD Unavailable Jillian Daley NP Unavailable [phone] Ania Avalos PsyD, LP Unavailable Na Estes MD Primary Care Provider [phone] Allergies Active Allergy Reactions Criticality Noted Date [...] mouth 2 times daily. 60 capsule 12 08/24/2016 Active acetaminophen (TYLENOL EXTRA STRGTH) 500 mg tablet Take 2 tablets by mouth every 6 hours if needed (pain, headache). Active blood-glucose meterIndications:Unc ontrolled type 2 diabetes mellitus, without long-term current use of insulin Dispense meter, test strips, lancets covered by pt ins. E11.9 NIDDM type II - Test 4 times/day. Reason: High A1C 1 Device 09/01/2020 Active lancetsIndications:U ncontrolled type 2 diabetes mellitus with diabetic dermatitis, with long-term current use of insulin Test 4 times per day. 200 Each 11 09/01/2020 Active PreviDent 5000 Sensitive 1.1-5 % pste USE DOCTOR INSTRUCTED 10/17/2020 Active dihydroergotamine (D.H.E.45) 1 mg/mL injection Inject 0.5-1 mg intramuscular. 08/03/2021 Active scopolamine 1mg over 3 days (TRANSDERM SCOP) patchIndications:H/O motion sickness Apply 1 Patch on dry, clean, hairless skin every 72 hours if needed for Nausea/Vomiting. 4 Patch 06/03/2022 Active ondansetron (ZOFRAN) 4 mg tabletIndications:Na usea Take 1 Tablet (4 mg) by mouth every 8 hours if needed for Nausea/Vomiting. 60 Tablet 12/09/2022 Active cyclobenzaprine (FLEXERIL) 10 mg tabletIndications:Sp asm of muscle of lower back Take 1 Tablet (10 mg) by mouth 3 times daily if needed for Muscle Spasm. 60 Tablet 2 01/18/2023 Active nystatin powder (MYCOSTATIN) powderIndications:In tertriginous candidiasis Apply 1 Strip topically to affected area(s) three times daily. 60 g 5 03/07/2023 Active loratadine-pseudoeph edrine (lorata-dine D) 10-240 mg 24hr tabletIndications:Po st-nasal drainage Take 1 Tablet by mouth once daily. 90 Tablet 3 06/12/2023 Active dulaglutide (Trulicity) 4.5 mg/0.5 mL subcutaneous penIndications:Type 2 diabetes mellitus with other specified complication, with long-term current use of insulin (HC) Inject 4.5 mg subcutaneous once weekly. 7 mL 2 06/12/2023 Active polyethylene glycol 3350 (MIRALAX ORAL) Take by mouth. A ctive ketorolac tromethamine (TORADOL IM) Inject intramuscular each time if needed (Migraine). Active pregabalin (LYRICA) 300 mg capsule Take 300 mg by mouth two times daily. 06/14/2023 Active pen needle, diabetic (UltiCare Pen Needle) 31 gauge x 5/16Indications:Unc ontrolled type 2 diabetes mellitus with hyperglycemia (HC) For administering insulin at home. 450 Each 3 07/26/2023 Active pramipexole (MIRAPEX) 0.25 mg tabletIndications:Re stless legs Take 3-4 Tablets (0.75-1 mg) by mouth at bedtime. 360 Tablet 1 09/12/2023 Active cyproheptadine (PERIACTIN) 4 mg tabletIndications:Na usea Take 1 Tablet (4 mg) by mouth one time if needed (nausaea) for up to 1 dose. 30 Tablet 11/15/2023 Active oxyCODONE (ROXICODONE) 5 mg immediate release tablet Take 5 mg by mouth every 4 hours if needed for Pain. 11/21/2023 Active Senna 8.6 mg tablet Take 8.6 mg by mouth once daily if needed for Constipation. 11/21/2023 Active tiZANidine (ZANAFLEX) 4 mg tablet Take 4 mg by mouth at bedtime. 10/24/2023 Active citalopram (CELEXA) 20 mg tabletIndications:An xiety Take 1.5 Tablets (30 mg) by mouth every morning. 135 Tablet 1 12/14/2023 Active Basaglar KwikPen U-100 Insulin 100 unit/mL (3 mL) penIndications:Type 2 diabetes mellitus with hyperglycemia, with long-term current use of insulin (HC) Inject 80 units subcutaneous two times daily. Product desired: BASAGLAR KWIKPEN 180 mL 12/28/2023 Active metoprolol succinate (Toprol XL) 25 mg Sustained-Release tabletIndications:Hy pertension,Paroxysma l SVT (supraventricular tachycardia) (HC) Take 1 Tablet (25 mg) by mouth once daily. 90 Tablet 3 12/28/2023 Active levothyroxine (SYNTHROID) 200 mcg tabletIndications:Po stoperative hypothyroidism Take 1 Tablet (200 mcg) by mouth before breakfast. 90 Tablet 2 12/28/2023 Active insulin aspart niacinamide (Fiasp FlexTouch U-100 Insulin) 100 unit/mL (3 mL) penIndications:Type 2 diabetes mellitus with hyperglycemia, with long-term current use of insulin (HC) Up to 40 units tid with meals 9 mL 3 12/28/2023 Active atorvastatin (LIPITOR) 40 mg tabletIndications:Mi xed hyperlipidemia,Type 2 diabetes mellitus with other specified complication, with long-term current use of insulin (HC) Take 1 Tablet (40 mg) by mouth at bedtime. 90 Tablet 3 02/07/2024 Active blood sugar diagnostic (Contour Next Test Strips) stripIndications:Unc ontrolled type 2 diabetes mellitus with hyperglycemia (HC) Test 3 times per day 300 Each 3 02/19/2024 Active lisinopriL (PRINIVIL; ZESTRIL) 5 mg tabletIndications:Hy pertension TAKE ONE TABLET BY MOUTH ONE TIME DAILY 90 Tablet 02/28/2024 Active Active Problems Patient Care Coordination No te [...] Microvascular angina 11/27/2023 COVID-19 long hauler 02/25/2022 Overview (02/25/2022): Chronic shortness of breath and weakness since COVID-19. Headaches. COVID-19 infection x2 Esophageal stricture 02/25/2022 Overview (02/25/2022): Follows with [facility]-- last dilation 10/2020 Microalbuminuria due to type 2 diabetes mellitus 10/01/2021 Overview (10/01/2021): 10/01/2021 Paroxysmal SVT (supraventricular tachycardia) Depression, major, single episode, severe 2021 Other specified glaucoma 05/24/2021 Primary open angle glaucoma (POAG) of both eyes, mild stage 03/08/2021 Bilateral occipital neuralgia 08/13/2020 Overview (08/13/2020): Left occipital nerve block: kenalog + bupivacaine 08/13/2020 Pain due to internal orthope dic prosthetic devices, implants and grafts, sequela 01/01/2019 Uncontrolled type 2 diabetes mellitus without complication, without long-term current use of insulin 01/16/2018 Myopia of left eye with astigmatism and presbyop ia 02/06/2017 Hyperopia of right eye with astigmatism and pres byopia 02/06/2017 Postoperative hypothyroidism 03/25/2015 Hyperlipidemia 03/14/2014 Overview (03/14/2014): Ran calculations Mar 14.;2013: With age43,nspu349,hdl51, gzd505, treated hypertension, +dm. 10year ATHEROSCLEROTIC CARDIOVASCULAR DISEASE risk = 1.9% Recommend =mod intensity statin (10mg atorvastatin) Varicose veins of lower extr emities with other complications 09/18/2013 Overview (11/05/2013): 09/26/13 Venous insufficiency US - 1. No deep venous thrombosis of the left lower extremity. 2. The left great saphenous vein is competent. 3. The left small saphenous vein is competent. 4. A 3 mm incompetent perforating branch is present along the anterior distal thigh and supplies superficial varicosities extending cephalad along the lateral thigh. Hypertension 04/23/2011 Vitamin D deficiency 09/10/2010 Overview (10/03/2012): Level was 22.4 in the August 2010. 22.1 in Jun 2012. 28 in September 2012 Obesity, unspecified 11/26/2008 GERD (gastroesophageal reflux disease) 9 Gastroparesis 11/26/2008 Restless legs 11/26/2008 Papillary thyroid cancer 08/13/2007 Overview (09/07/2022): Papillary thyroid cancer, stage 1; T1, N1a, M0 01/22/01: Surgery: subtotal thyroidectomy Pathology (reviewed at [facility] - see notes from [facility] that are currently in the system as [...] follow up with Dr. Tam Daley with [facility] for several years. This included [...] repeat prescriptions 09/01/2014 02/25/2022 Hypothyroidism 03/06/2014 03/25/2015 Overview (03/06/2014): On 200mcg levothyroxine , TSH was elevated into the 30s in Feb 2014 without missing doses. Taking with food and/or other medications however. Going up to 250mcg levothyroxine daily and recommend taking on empty stomach, starting mid February. Uncontrolled type 2 diabetes mellitus with complication, with long-term current use of insulin 07/17/2013 01/16/2018 Overview (03/13/2014): Diagnosis: Jun 2013. Starting Metformin Oct 2013 Started insulin Feb 2014. Other chronic nonalcoholic liver disease 05/17/2012 01/16/2018 Vitamin D deficiency 09/14/2010 012 Cellulitis and abscess of face 08/13/2007 11/29/2011 Overview (08/13/2007): 2004-onset , with multiple recurrences Peroneal tendon tear, right, subsequent encounter 11/27/2023 Encounters Date Type Department Care Team Description 04/02/2024 Orders Only [facility] [address] [place] [phone] Jillian Daley NP 1 scan: (1-Ord) 04/01/2024 04/01/2024 1:30 PM CDT Office Visit [facility] [address] [place] [address] Jillian Daley NP CV Electrophysiology Est (EP follow up paroxysmal SVT) 04/01/2024 Travel 03/25/2024 8:30 AM CDT Telemedicine [address] [facility] [address] [place] [address] Ania Avalos PsyD, LP Mental Health Intake; Telehealth (/) 03/25/2024 Travel 03/06/2024 10:00 AM CDT Procedure Only [facility] [address] [place] [address] Yo Owens L Ac Acupuncture 03/06/2024 Travel 03/04/2024 8:30 AM CDT Telemedicine [address] [place] [address] Ania Avalos PsyD, ROBINSON Individual Therapy; Telehealth (/) 03/03/2024 Travel 03/01/2024 1:00 PM CDT Procedure Only [facility] [address] [place] [address] Yo Owens L Ac Acupuncture 03/01/2024 Travel 02/25/2024 Refill [facility] [address] [place] [address] Na Etses MD Refill Request (Lisinopril) 02/23/2024 1:15 PM CDT Orders Only [facility] [address] [place] [address] Lab 02/23/2024 8:40 AM CDT Telemedicine [address] [phone] Leslee Dee PA Telehealth (Possible UTI) 02/23/[address] [phone] Leslee Dee PA Medication Management (ciprofloxacin HCl (CIPRO) 500 mg tablet and citalopram (CELEXA) 20 mg tablet ) 02/23/2024 Telephone [facility] [address] [place] [address] Na Estes MD Medication Management (ciprofloxacin HCl (CIPRO) 500 mg tablet and citalopram (CELEXA) 20 mg tablet) 02/23/2024 Travel 02/22/2024 1:30 PM CDT Procedure Only [facility] [address] [place] [address] Yo Owens L Ac Acupuncture 02/22/2024 Travel 02/19/2024 Refill [facility] [address] [place] [address] Gita Marie MD Refill Request (Contour Next Test Strips) 02/16/2024 8:30 AM CDT Telemedicine [address] [address] Ania Avalos PsyD, ROBINSON Individual Therapy; Telehealth 02/16/2024 Travel 02/05/2024 Refill [facility] [address] [place] [address] Gita Marie MD Refill Request (Atorvastatin) 01/29/2024 8:30 AM CDT Telemedicine [address] [place] [address] Robbie, Ania A, PsyD, LP Individual Therapy; Telehealth (/) 01/25/2024 Travel 01/24/2024 8:30 AM CDT Procedure Only [facility] [address] [facility] [place] [address] Yo Owens L Ac Acupuncture 01/23/2024 1:00 PM CDT Office Visit [facility] [address] [place] [address] Jerod Rivera, DPM Foot Problem (Follow up left heel callus- tried lotion with no help of softening the callus, soaked her feet with 1 part vinegar/ 3 parts water per advised by her larry operator has helped, and pumice stone will get some skin off. ) 01/23/2024 Travel 01/18/2024 Travel 01/17/2024 7:30 AM CDT Preop Visit [facility] [address] [place] [address] Na Estes MD Pre-Op Exam (Total Right knee replacement /01/30/24/Dr Sven Owusu ) 01/16/2024 2:30 PM CDT Procedure Only [facility] [address] [facility] [place] [address] Yo Owens L Ac Acupuncture 01/16/2024 Travel 01/11/2024 11:00 AM CDT Procedure Only [facility] [address] [facility] [place] [address] Yo Owens L Ac Acupuncture 01/10/2024 Travel 01/08/2024 8:30 AM CDT Telemedicine [facility] [address] [facility] [address] [place] [address] RobbieAnia palencia, PsyD, LP Individual Therapy; Telehealth 01/03/2024 Travel 01/02/2024 8:30 AM CDT Procedure Only [facility] [address] [place] [address] Yo Owens Joann, Claude Ac Acupuncture 01/02/2024 Travel from Last 3 Months Immunizations Name Administration Dates Next Due COVID-19 vaccine ([employer] [place] 30mcg/0.3mL) PF, MDV 10/08/2021,05/04/2021,10/30/2020,2020 DT (Age < [...] Disease Father cad Hypertension Mother improved after nursing home Other Mother scleroderma Cancer Other first cousin [...] Answer Date Recorded PHQ-2 TOTAL SCORE 0 03/03/2024 Social Connections Answer Date Recorded Frequency of [...] Sex Assigned at Female 07/05/2021 12:17 AM GOVERNMENT PROGRAM MANAGER Gender Identity Female 07/05/2021 12:17 AM GOVERNMENT PROGRAM MANAGER Sexual Orientation Straight 07/05/2021 12 :17 AM GOVERNMENT PROGRAM MANAGER Obstetrics History Para Term AB IAB SAB Ectopic Multiple Livin g Live Births 0 0 0 0 0 0 0 0 0 0 Last Filed Vital Signs Vital Sign Reading Time Taken Comments Blood Pressure 110/76 04/01/2024 1:38 PM CDT Pulse 73 04/01/2024 1:38 PM CDT Temperature 36.9 ??C (98.4 ??F) 10/19/2023 3:00 PM CD T Respiratory Rate 18 01/17/2024 8:17 AM CDT Oxygen Saturation 96% 04/01/2024 1:38 PM CDT Inhaled Oxygen Concentration - - Weight 179.2 kg (395 lb 1.6 oz) 04/01/2024 1:38 PM CDT Height 175.3 cm (5' 9) 01/17/2024 8:17 AM CDT Body Mass Index 58.35 01/17/2024 8:17 AM CDT Plan of Treatment Upcoming Encounters Date Type Department Care Team (Late st Contact Info) Description 04/11/2024 8:30 AM CDT Telemedicine [facility] [address] [facility] [address] [facility] [address] [place] [address] Ania Avalos PsyD, ROBINSON [address] [facility] E [facility] [address] [place] [address] 04/12/2024 9:00 AM CDT Procedure Only [facility] [address] [place] [address] Yo Owens L Ac [address] [place] [address] 04/29/2024 8:30 AM CDT Telemedicine [facility] [address] [place] [address] Robbie, Ania A, PsyD, LP [address] [place] [address] 05/22/2024 8:30 AM GOVERNMENT PROGRAM MANAGER Telemedicine [facility] [address] [place] [address] Robbie, Ania A, PsyD, LP [address] [place] [address] 06/10/2024 8:30 AM GOVERNMENT PROGRAM MANAGER Telemedicine [facility] [address] [place] [address] Robbie, Ania A, PsyD, LP [address] [place] [address] 07/01/2024 8:30 AM GOVERNMENT PROGRAM MANAGER Telemedicine [facility] [address] [place] [address] Robbie, Ania A, PsyD, LP [address] [place] [address] 07/15/2024 8:30 AM GOVERNMENT PROGRAM MANAGER Telemedicine [facility] [address] [place] [address] Robbie, Ania A, PsyD, LP [address] [place] [address] 08/05/2024 8:30 AM GOVERNMENT PROGRAM MANAGER Telemedicine [facility] [address] [place] [address] Robbie, Ania A, PsyD, LP [address] [place] [address] 08/26/2024 8:30 AM GOVERNMENT PROGRAM MANAGER Telemedicine [facility] [address] [place] [address] Robbie, Ania A, PsyD, LP [address] [place] [id number] 09/16/2024 8:30 AM GOVERNMENT PROGRAM MANAGER Telemedicine [facility] [address] [place], [place] [id number] Robbie, Ania A, PsyD, LP [address] [place], [place] [id number] Health Maintenance Due Date Last Done Comments HIV for age 15-65 1986 Fecal testing sDNA-FIT ([place] guard) for age 45-75 2016 COVID-19 vaccine series (2022- season) 2024 04/02/2022, 10/08/2021, 05/04/2021, Additional history exists Mammogram for age 45-75 07/07/2024 07/07/20, 06/17/2022, 06/14/2021, Additional history exists BMI (ht and wt on same day) for age 18+ 01/16/2025 01/17/2024, 12/28/2023, 11/15/2023, Additional history exists Depression screening for age 12+ 03/06/2025 03/06/2024, 03/04/2024, 03/03/2024, Additional history exists Tetanus booster 06/12/2027 06/12/2017, [...] Completed 02/25/2022 Medical Devices Implanted Type Area Passenger Service Supervisor Device Identifier Shelf Expiration Date Model / Serial / Lot Iud, Mirena - [id number] Implanted:Qty: 1 on 01/02/2015 by Mireya Avila MD at [facility] N/A: Uterus R-BACILIO 08/04/2017 [id number] Screw Foot 5x50mm Fixos Comp Implanted:Qty: 1 on 08/20/2018 by Jerod Rivera DPM at [facility] Left: Calcaneus Description:SCREW FOOT 5X50M M FIXOS COMP Procedures Procedure Name Priority Date/Time Associated Diagnosis Comments EKG 12 LEAD Routine 04/01/2024 12:00 AM CDT SVT (supraventricular tachycardia) (HC) ACUPUNCTURE PLAN OF CARE Routine 03/06/2024 9:57 AM CDT Chronic pain of both knees Other low back pain Other chronic pain Chronic intractable headache, unspecified headache type Chronic migraine without aura without status migrainosus, not intractable ACUPUNCTURE PLAN OF CARE Routine 03/01/2024 1:00 PM CDT Chronic pain of both knees Other low back pain Other chronic pain Chronic intractable headache, unspecified headache type Chronic migraine without aura without status migrainosus, not intractable URINALYSIS MICROSCOPIC Routine 02/23/2024 11:18 AM CDT Abnormal urine odor URINE CULTURE Routine 02/23/2024 11:18 AM CDT Abnormal urine odor UA W/ SEDIMENT EXAM REFLEXED PER CRITERIA Routine 02/23/2024 11:18 AM CDT Abnormal urine odor ACUPUNCTURE PLAN OF CARE Routine 02/22/2024 1:27 PM CDT Chronic pain of both knees [...] MAMMO BILAT SCREENING Routine 07/07/2023 8:34 AM GOVERNMENT PROGRAM MANAGER Visit for screening mammogram LC LIPID PANEL AND CHOL/HDL RATIO Routine 09/02/2022 7:35 AM GOVERNMENT PROGRAM MANAGER Type 2 diabetes mellitus with hyperglycemia, with long-term current use of insulin (HC) ANTI HCV Routine 02/25/2022 12:11 PM CDT Need for hepatitis C screening test from Last 3 Months or Most Recently Relevant to Health Maintenance Results * EKG 12 LEAD (04/01/2024 12:00 AM CDT) Jillian Daley TUBE STATION ATTENDANT EKG ORD * (ABNORMAL) URINALYSIS MICROSCOPIC (02/23/2024 11:18 AM CDT) RBC 0-2 0-2, None Seen /HPF 02/23/2024 11:30 AM CDT [facility] WBC >100(A) 0-2, 3-5, None Seen /HPF 02/23/2024 11:30 AM CDT [facility] BACTERIA Many(A) None Seen, Rare, Few Bacteria/H PF 02/23/2024 11:30 AM CDT [facility] EPITHELIAL CELLS Few None Seen, Few Epi/HPF 02/23/2024 11:30 AM CDT [facility] WHITE CELL CLUMPS Present(A) (none) 02/23/2024 11:30 AM CDT [facility] Urine URINE SPECIMEN / Unknown Non-Blood / Unknown 02/23/2024 11:18 AM CDT 02/23/2024 11:19 AM CDT Narrative [facility] - 02/23/2024 11:30 AM CDT There are numerous leukocytes (packed WBC) which may affect the accuracy of results. Interpret with caution. Leslee GUERRERO URINE [facility] [address] [place] [address] * (ABNORMAL) URINE CULTURE (02/23/2024 11:18 AM CDT) CULTURE RESULT(A) 02/26/2024 6:51 AM CDT [facility] CULTURE >100,000 CFU/mL Escherichia coli 02/26/2024 6:51 AM CDT [facility] CULTURE <10,000 CFU/mL Multiple organisms probable contaminants 02/26/2024 6:51 AM CDT [facility] Urine URINE SPECIMEN / Unknown Non-Blood / Unknown 02/23/2024 11:18 AM CDT 02/23/2024 11:19 AM CDT Narrative Organism Antibiotic Method Susceptibility Escherichia coli TRIMETHOPRIM/SULF <=1/19: S Escherichia coli AMPICILLIN <=2: S Escherichia coli CEFAZOLIN <=1: S Escherichia coli CEFAZOLIN-UC <=1: S Comment:Cefazolin-UC interpretations are for therapy of [...] coli GENTAMICIN <=1: S Escherichia coli CEFTRIAXONE <=0.25: S Escherichia coli CEFTAZIDIME <=0.5: S Escherichia coli LEVOFLOXACIN <=0.12: S Escherichia coli CIPROFLOXACIN <=0.06: S Escherichia coli PIPERACILLIN/TAZO <=4: S Escherichia coli AMPICILLIN/SULBACTAM <=2: S Escherichia coli CEFEPIME <=0.12: S Escherichia coli MEROPENEM <=0.25: S Escherichia coli NITROFURANTOIN <=16: S Leslee GUERRERO MICROBIOLOGY [facility] [address] [place] [address], * (ABNORMAL) UA W/ SEDIMENT EXAM REFLEXED PER CRITERIA (02/23/2024 11:18 AM CDT) COLOR Yellow Yellow Color 02/23/2024 11:24 AM CDT [facility] CLARITY Slightly Cloudy(A) Clear Clarity 02/23/2024 11:24 AM CDT [facility] SPECIFIC GRAVITY,URINE 1.015 1.010, 1.015, 1.020, 1.025 02/23/2024 11:24 AM CDT [facility] PH,URINE 6.0 6.0, 7.0, 8.0, 5.5, 6.5, 7.5, 8.5 02/23/2024 11:24 AM CDT [facility] UROBILINOGEN, QUALITATIVE Normal Normal EU/dl 02/23/2024 11:24 AM CDT [facility] PROTEIN, URINE 30(A) Negative mg/dL 02/23/2024 11:24 AM CDT [facility] GLUCOSE, URINE Negative Negative mg/dL 02/23/2024 11:24 AM CDT [facility] KETONES,URINE Negative Negative mg/dL 02/23/2024 11:24 AM CDT [facility] BILIRUBIN,URI NE Negative Negative 02/23/2024 11:24 AM CDT [facility] OCCULT BLOOD,URINE Trace(A) Negative 02/23/2024 11:24 AM CDT [facility] NITRITE Negative Negative 02/23/2024 11:24 AM CDT [facility] LEUKOCYTE ESTERASE Moderate(A) Negative 02/23/2024 11:24 AM CDT [facility] Urine URINE SPECIMEN / Unknown Non-Blood / Unknown 02/23/2024 11:18 AM CDT 02/23/2024 11:19 AM CDT Leslee GUERRERO URINE [facility] [address] [place] [address] * HEMOGLOBIN (01/17/2024 8:11 AM CDT) HEMOGLOBIN 12.5 12.0 - 16.0 g/dL 01/17/2024 10:25 PM CDT [facility] MCV 84 80 - 100 fL 01/17/2024 10:25 PM CDT [facility] Blood BLOOD SPECIMEN / Unknown Venipuncture / Unknown 01/17/2024 8:11 AM CDT 01/17/2024 8:12 AM CDT Na Estes MD HEMATOLOGY Performing Organization Address [facility] Co de Phone Number [facility] [address] [place] [address], * POTASSIUM (01/17/2024 8:11 AM CDT) Pathologist [facility] POTASSIUM 4.0 3.5 - 5.1 mmol/L 01/17/2024 10:43 PM CDT [facility] Blood BLOOD SPECIMEN / Unknown Venipuncture / Unknown 01/17/2024 8:11 AM CDT 01/17/2024 8:12 AM CDT Na Estes MD CHEMISTRY Performing Organization Address [facility] de Phone Number [facility] [address] [place] [address], [place] * XR MAMMO BILAT SCREENING (07/07/2023 8:34 AM GOVERNMENT PROGRAM MANAGER) Anatomical Region Laterality Modality BREASTS, Breast Left, Breast Right Bilateral Mammography Impressions 07/07/2023 12:59 PM GOVERNMENT PROGRAM MANAGER ??There is no radiographic evidence for malignancy. ??Recommend annual mammograms. MAMMOGRAM ASSESSMENT: ??ACR 1 Negative PATIENTS: You will also receive a letter with your examination results in an easy to read format. ??If you have questions about your results, please contact your referring provider. Narrative 07/07/2023 12:59 PM GOVERNMENT PROGRAM MANAGER For Patients: As a result of the 21st Century Cures Act, medical imaging exams and procedure reports are released immediately into your electronic medical record. You may view this report before your referring provider. If you have questions, please contact your health care provider. XR MAMMO BILAT SCREENING [[id number]] CLINICAL HISTORY: ??This is an asymptomatic 53 y.o. patient. INDICATION FOR EXAM: Mammogram Screening. TECHNIQUE: CC & MLO views were obtained. ??This study was evaluated with the assistance of Computer-Aided Detection. COMPARISON FILM: Yes 06/17/22 [facility] 06/14/21 [facility] FINDINGS: ??The breasts have scattered areas of fibroglandular density. There are no dominant masses, suspicious micro calcifications or areas of architectural distortion. Yenni Cruz Laura TUBE STATION ATTENDANT MAMMO * LC LIPID PANEL AND CHOL/HDL RATIO (09/02/2022 7:35 AM GOVERNMENT PROGRAM MANAGER) Cholesterol, Total 144 100 - 199 mg/dL 09/06/2022 11:06 PM [facility] Triglycerides 148 0 - 149 mg/dL 09/06/2022 11:06 PM [facility] HDL Cholesterol 43 >39 mg/dL 11:06 PM [facility] VLDL Cholesterol Blake 26 5 - 40 mg/dL 09/06/2022 11:06 PM [facility] LDL Chol Calc (NIH) 75 0 - 99 mg/dL 09/06/2022 11:06 PM [facility] T. Chol/HDL Ratio 3.3 0.0 - 4.4 ratio 09/06/2022 11:06 PM [facility] ([facility] Comment: ?T. Chol/HDL Ratio ?Men ??Women ?1/2 Avg.Risk ??3.4 ?3.3 ?Avg.Risk ??5.0 ?4.4 ? 2X Avg.Risk ??9.6 ?7.1 ? 3X Avg.Risk 23.4 ?? 11.0 Blood BLOOD SPECIMEN / Unknown Venipuncture / Unknown 09/02/2022 7:35 AM GOVERNMENT PROGRAM MANAGER 09/02/2022 7:38 AM GOVERNMENT PROGRAM MANAGER Narrative [facility] ([facility] - 09/06/2022 11:06 PM GOVERNMENT PROGRAM MANAGER Performed at: ??01 - [facility] [address] [place] [address] ??[phone] Police Manager: Ben Muñoz MD, Phone: ??[phone] Gita Marie MD SEND OUTS [facility] ([facility]) [address] [place] [id number], * ANTI HCV (02/25/2022 12:11 PM CDT) HEPATITIS C ANTIBODY Non-React josefina Non-React josefina 02/25/2022 11:20 PM CDT [facility] Comment:Antibodies to HCV no t detected; does not exclude the possibility of exposure to HCV. Blood BLOOD SPECIMEN / Unknown Venipuncture / Unknown 02/25/2022 12:11 PM CDT 02/25/2022 12:13 PM CDT Kell GUERRERO SEND OUTS [facility] [address] [place] [address], [place] from Last 3 Months or Most Recently Relevant to Health Maintenance Advance Directives Documents on File Type Date Recorded Patient Aoc Plans Intelligence Officer Expl anation Healthcare Directive 09/10/2022 023 Healthcare [...] 8:23 AM 09/27/2019 11:54 AM Care Teams Inspector Casing Relationship Specialty [place] [address] [place] [address] PCP - General Internal Medicine 06/12/23 Kar Soto MD Neurology 05/14/14 Olvin Vega MD [address] [facility] [address] [place] [address] Endocrinology 05/14/14 Bhaskar Page MD [address] [place] [address] [address] [place] [address] Gastroenterology 05/14/14 Major Chandler MBBS [address] [facility] [address] [place] [address] Consulting Physician Cardiovascular Disease 02/05/19 Isak Nielson MD [address] [facility] [address] [place] [address] Consulting Physician Cardiology - Electrophysiology 04/22/19 Jillian Daley NP [address] [facility] [address] [place] [address] Nurse Practitioner Cardiology - Electrophysiology 07/31/19 Ania Avalos PsyD, ROBINSON [address] [facility] [address] [place] [address] Psychologist Psychology 10/03/19
--- OUTSIDE RECORDS SUMMARY | 2024-04-03 14:31 | XMS_ITS | Patient Health Record ---
Author Organization [facility] Address [address] [place] [address] [address] [place] [address] Care Team Providers Care Can Filling Machine Operator Name Role Phone Gita Marie Primary Care Provider Unavaileva RosseFabrizio Unavailable [phone] Raymond BERNAL SENIOR IOS DEVELOPER, Mandi Unavailable Unavaila ble Allergies Allergen (clinical drug ingredient) Drug/Non Drug Allergy documented on EMR Reaction Allergy Type Onset Date Status Imdur rash Drug Allergy Active Latex Latex hives Allergy Active Reason For Referral No Information Medications Medication SIG (Take, Route, Frequency, Duration) Notes Start Date End Date Status Ondansetron HCl 4 MG 1 tablet Orally Onc e a day Active Percocet 5-325 MG 1 tablet as needed Orally every 6 hrs Active Cyproheptadine HCl 4 MG 1 tablet Orally Twice a day Active Pramipexole Dihydrochloride 0.25 MG 4 tablet Orally Once a day at bedtime Active Nystatin 949157 UNIT/GM 1 application Externally Twice a day [...] day for 30 days Active Toradol Active Social History Tobacco Use: Social History Observation Description Date Details (start date - stop date) Never Smoker NA - NA Tobacco Use/Smoking: Question Answer Notes Are you a nonsmoker Alcohol Screen Question Answer Notes Did you have a drink containing alcohol in the p ast year? No Points 0 Interpretation Negative Problems Problem Type SNOMED Code ICD Code Onset Dates Problem Status W/U Status Risk Notes Problem Chronic pain (06123071) Other chronic pain (G89.29) Active confirmed Problem Lumbosacral spondylosis without myelopathy (88495082) Spondylosis without myelopathy or radiculopathy, lumbosacral region (M47.817) Active confirmed Problem Lumbosacral radiculopathy (2486696) Radiculopathy, lumbosacral region (M54.17) Active confirmed Problem Low back pain (403778544) Low back pain, unspecified (M54.50) Active confirmed Plan Of Treatment No Information Insurance Providers Payer Name Payer Address Payer Phone Subscriber Number Group Number Insured Name Patient Relationship to Insured Coverage Start Date Coverage End Date [facility] [place] Blue [place] PMAP [address] [address] [place] [address] [id number] [facility] [place] Madrid Self - patient is the insured [facility] [address] [address] [place], [place] [id number] Laura Madrid Self - patient is the insured Medical (General) History Medical History History ICD Code Diabetes Depression Thyroid problems Arthritis Hypertension Migraine Cancer Acid reflux Blood clots Surgical History Surgery Date(Month/Year) Esophageal stricture hysterectomy 2015 Left heel surgery 2018 Left and Right ankle tendon repair 2002 coronary angiogram 2006 Right Eyebrow/eyelid lift temporal artery biopsy cyst removal from left maxillary sinus 2 002 Thyroidectomy 2000 Cholecystectomy 1999
== END 2024-04-03 14:27 | disposition home or self-care (01) ==
LOC: WOUND 14:28
PROVIDERS: Visit Provider Surgery
DX: L97.211 Non-pressure chronic ulcer of right calf limited to breakdown of skin (principal); E11.8 Type 2 diabetes mellitus with unspecified complications; Z79.4 Long term (current) use of insulin; Z86.711 Personal history of pulmonary embolism; E66.01 Morbid (severe) obesity due to excess calories; Z68.43 Body mass index [BMI] 50.0-59.9, adult
CPT/HCPCS: G0463

== ENCOUNTER 2024-04-10 15:03 | Outpatient (CLI) | payer MEDICARE, MEDICAID, SELFPAY ==
--- OUTSIDE RECORDS SUMMARY | 2024-04-10 15:05 | XMS_ITS | Clinical Summary ---
[facility] Address [address] [place] [address] Care Team Providers Care School Superintendent Name Role Phone Kell Pan PA-C Primary [...] for each transition of care or referral. [employer] Allergies Active Allergy Reactions Criticality Noted [...] Comments Blood Pressure 109/68 07/05/2022 11:20 AM QUALITY ASSURANCE SUPERVISOR TRIM Pulse 79 07/05/2022 11:20 AM QUALITY ASSURANCE SUPERVISOR TRIM Temperature - - Respiratory Rate 17 07/05/2022 11:20 AM QUALITY ASSURANCE SUPERVISOR TRIM Oxygen Saturation - - Inhaled Oxygen Concentration [...] , 03/07/2023, Additional history exists COVID-19 Vaccine (2023- season) 2024 04/02/2022, 10/08/2021, 05/04/2021, Additional history [...] age to complete this topic Care Teams School Superintendent Relationship Specialty Start Date End Date Kell Pan PA-C PCP - General Physician Distributor Operator 02/06/20
--- OUTSIDE RECORDS SUMMARY | 2024-04-10 15:05 | XMS_ITS | Clinical Summary ---
Author Organization [facility] Address [address] [place] [address] Care Team Providers Care Speech And Hearing Clinic Director Name Role Phone Elsewhere, Pcp Primary Care Provider Unavailabl e Source Comments Patient records contain information from all sites at [facility]. For routine questions regarding patient records, call [phone] during business hours, M-F 8:00 AM - 5:00 PM Central Time. Record requests for emergency care only can be directed to [phone] at any time.[facility] Allergies Active Allergy Reactions Criticality Noted [...] Procedure visit Division of Pain Medicine in [place], [place] [address] [place] [phone] Amelia Salgado APRN, HUSBANDRY PERSON, D.N.P. Myalgia (Primary Dx); Myofascial Pain Syndrome; Pain Sacroiliac 03/08/2024 Orders Only Division of Pain Medicine in [place], [place] [address] [place] [phone] Amelia Salgado APRN, HUSBANDRY PERSON, D.N.P. Occipital Neuralgia (Primary Dx); Headache Chronic 01/26/2024 9:11 AM CDT - 01/26/2024 11:59 PM CDT Hospital Encounter Division of Pain Medicine in [place], [place] [address] [place] [phone] Amelia Salgado APRN, HUSBANDRY PERSON, D.N.P. Pain Low Back Unspecified; Spondylosis Lumbar Without Myelopathy Discharge Disposition: Home or Self Care 01/16/2024 Clinical Communication Division of Pain Medicine in [place], [place] [address] [place] [phone] Amelia Salgado APRN, CNS, D.N.P. from Last 3 Months Family History [...] Maybe 1-2 drinks a year [facility] Utilities Answer Date Recorded In the past 12 months has e myAchy, gas, oil, or water [employer] threatened to shut off services in your [...] any clubs o r organizations such as yarsani groups, unions, fraternal or athletic groups, or [...] heating? Not hard at all 01/05/2023 [facility] - Occupational [...] your living situation today? I have a [facility] place to live 12/17/2023 Education Answer [...] Care Team (Late st Contact Info) Description 07/02/2024 12:45 PM CAREER AND GUIDANCE COUNSELOR Procedure visit Division of Pain Medicine in [place], [place] [address] [place] [address] Sintia Ovalle P.A.-C., M.S. [address] [place] [address] Health Maintenance Due Date Last Done Comments CT Colonography 1971 Cologuard 1971 Colonoscopy 1971 Colorectal Cancer Screening 1971 FIT 1971 HIV Screening 1971 Hepatitis C Screening 1971 Mammogram 1971 Office Visit for Blood Pressure Check / Re-check 01/04/2023 10/04/2022 Depression Screening (Annual PHQ-2) 07/17/2023 Thyroid Stimulating Hormone (TSH) test for thyroid function 02/15/2024 02/14/2023, 09/23/2022, 12/17/2021, Additional history exists COVID-19 Vaccine ( season) 2024 04/02/2022, 10/08/2021, 05/04/2021, Additional history exists Influenza Vaccine (#1) 2024 Creatinine Level (Kidney Function Test) 06/12/2024 06/12/2023, 03/07/2023, 12/01/2022, Additional history exists Sodium Level 06/12/2024 06/12/2023, 02/15, 12/01/2022, Additional history exists Potassium Level 01/16/2025 [...] this topic Medical Devices Implanted Type Area Residential Mortgage Manager Device Identifier Shelf Expiration Date Model / Serial / Lot Knee Implant-11/21/19 24 Implanted:01/2024 (Quantity not on file) Knee Implant Left: Knee Procedures Procedure Name Priority Date/Time Associated Diagnosis Comments WI INJ TRIGGER PNT<=2 MUS Routine 03/12/2024 10:00 AM CDT Myofascial Pain Syndrome FL LUMBAR SPINE RADIOFREQUENCY DENERVATION Routine 01/26/2024 10:32 AM CDT Pain Low Back 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 GLUCOSE POCT, B Routine 01/26/2024 9:32 AM CDT from Last 3 Months Results * WI INJ TRIGGER PNT<=2 MUS (03/12/2024 10:00 AM [...] Care team members present 1. Brie Estes L.PShamikaN. PROCEDURE SUMMARY Indications: Spondylosis without myelopathy Pre-procedural [...] blood loss: 0 Implants: 0 Amelia Salgado PROPERTY HANDLER, HUSBANDRY PERSON, D.N.P. FLUOR O GUIDED PAIN PROCEDURES MMODAL NA * (ABNORMAL) Glucose, POCT (01/26/2024 9:32 AM CDT) Glucose, POCT, B 152(H) 70 - 140 mg/dL 01/26/2024 9:49 AM CDT PCMO Site Capillary 01/26/2024 9:49 AM CDT PCMO Blood 01/26/2024 9:32 AM CDT 01/26/2024 9:49 AM CDT Unknown Provider LAB POCT ORDERABLES- MANUAL POC [facility] [address] [place] [address], [facility] PCMO [facility] POC [address] [place] [address] from Last 3 Months Advance Directives For more information, please contact: [phone] Documents on File Type Date Recorded Patient Heading Saw Operator Expl anation Advance Directives 10/05/2022 8:01 PM Arlen Resendezrianna Rincon HCPOA/ADVOCATE/AGENT/R EPRESENTATIVE/SURROGAT E Healthcare Agents on File Name Relationship Healthcare Agent Relationship Communication Arlen Madrid Mother Health Care Agent [email or web address] Dudley Madrid Brother First Alternate Health Care Agent Elena Felicia Abdulkadirta Friend Second Alternate Health Care Agent Care Teams Speech And Hearing Clinic Director Relationship Specialty Start Date End Date Elsewhere, Pcp PCP - General Internal Medicine 09/30/22
--- OUTSIDE RECORDS SUMMARY | 2024-04-10 15:06 | XMS_ITS | Encounter Summary ---
Author Organization [facility] Address [address] [place] [address] Care Team Providers Care Epic Application Coordinator Name Role Phone Elsewhere, Pcp Primary Care Provider Unavailabl e Reason for Referral * Outpatient (Routine) - Closed Specialty Diagnoses / Procedures Referred By Contac t Referred To Contact Diagnoses Pain Low Back 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 Procedures [place] Lumbar Spine Radiofrequency Denervation PA DEST LUMB/SAC FACET JT PA DEST LUMB/SAC FACET JT Amelia English APRN, PROPERTY MANAGEMENT COORDINATOR, D.N.P. [address] [place] [address] [facility] Referral ID Status Reason Start Date Expiration Date Visits Re quested Visits Authorized [id number] Closed 01/04/2024 05/02/2024 1 1 Reason for Visit * Outpatient (Routine) - Closed Specialty Diagnoses / Procedures Referred By Contac t Referred To Contact Diagnoses Pain Low Back 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 Procedures FL Lumbar Spine Radiofrequency Denervation PA DEST LUMB/SAC FACET JT PA DEST LUMB/SAC FACET JT Amelia English APRN, PROPERTY MANAGEMENT COORDINATOR, D.N.P. [address] [place] [address] [facility] Referral ID Status Reason Start Date Expiration Date Visits Re quested Visits Authorized [id number] Closed 01/04/2024 05/02/2024 1 1 Encounter Details Date Type Department Care Team (Latest Contact Info) Description 01/26/2024 9:11 AM CDT - 01/26/2024 11:59 PM CDT Hospital Encounter Division of Pain Medicine in [place], [place] [address] [place] [address] Amelia Salgado, DANYEL, PROPERTY MANAGEMENT COORDINATOR, D.N.P. [address] [place] [address] Pain Low Back Unspecified; Spondylosis Lumbar Without Myelopathy Discharge Disposition: Home or Self Care Social History Tobacco Use Types Packs/Day Years Used Date Smoking Tobacco: Never Passive Smoke Exposure: Current Smokeless Tobacco: Never Alcohol Use Standard Drinks/Week Comments Not Currently 0 (1 standard drink = 0.6 oz pur e alcohol) Maybe 1-2 drinks a year [facility] Utilities Answer Date Recorded In [...] often do you attend chur ch or orthodox services? Never 09/27/2022 Do you belong to any clubs o r organizations such as faith groups, unions, fraternal or athletic groups, or [...] and heating? Not hard at all 01/05/2023 [facility] - Occupational [...] your living situation today? I have a [facility] place to live 12/17/2023 Education Answer [...] st Contact Info) Description 07/02/2024 12:45 PM PHYSICAL THERAPY ASSISTANT Procedure visit Division of Pain Medicine in [place], [place] [address] [place] [phone] Sintia Ovalle P.A.-C., M.S. [address] [place] [address] documented as of this encounter Procedures Procedure [...] Robert Gibbons M.D. ? 01/26/2024 10:41 AM [place] Lumbar Spine Radiofrequency Denervation Performed by: Robert [...] Provider LAB POCT ORDERABLES- MANUAL POC [facility] [address] [place] [address], [facility] P[facility] [address] [place] [address] documented in this encounter Visit Diagnoses Diagnosis [...] mg documented in this encounter Care Teams Epic Application Coordinator Relationship Specialty Start Date End Date Elsewhere, Pcp PCP - General Internal Medicine 09/30/22 documented as of this encounter
--- OUTSIDE RECORDS SUMMARY | 2024-04-10 15:06 | XMS_ITS | Encounter Summary ---
Author Organization [facility] Address [address] [place] [address] Care Team Providers Care Health Screener Name Role Phone Elsewhere, Pcp Primary Care Provider Unavailabl e Reason for Referral * Outpatient (Routine) - Authorized Specialty Diagnoses / Procedures Referred By Contac t Referred To Contact Diagnoses Headache Chronic Occipital Neuralgia Procedures PM Nerve Block injection Occipital; Greater, Lesser; Proceduralist Choice; Bilateral Amelia Salgado APRN, CNS, D.N.P. [address] [place] [address] [facility] Referral ID Status Reason Start Date Expiration Date V isits Requested Visits Authorized [id number] Authorized 03/08/2024 03/08/2025 1 1 * Outpatient (Routine) - Authorized Specialty Diagnoses / Procedures Referred By Contac t Referred To Contact Pain Medicine Amelia Salgado APRN, CNS, D.N.P. [address] [place] [phone] Robert Gibbons M.D. [address] [place] [phone] Referral ID Status Reason Start Date Expiration Date V isits Requested Visits Authorized [id number] Authorized 03/08/2024 09/07/2025 1 1 Scheduling Instructions [...] Orders Only Division of Pain Medicine in [place], [place] [address] [place] [phone] Amelia Salgado APRN, BHANU, D.N.P. [address] [place] [phone] Occipital Neuralgia (Primary Dx); Headache Chronic Social History Tobacco Use Types Packs/Day Years Used Date Smoking Tobacco: Never Passive Smoke Exposure: Current Smokeless Tobacco: Never Alcohol Use Standard Drinks/Week Comments Not Currently 0 (1 standard drink = 0.6 oz pur e alcohol) Maybe 1-2 drinks a year [facility] Utilities Answer Date Recorded In the past 12 months has [facility] [employer], gas, oil, or water [employer] threatened to shut off services in your [...] any clubs o r organizations such as sabianist groups, unions, fraternal or athletic groups, or [...] and heating? Not hard at all 01/05/2023 [facility]at ionks Health - Occupational Stress Questionnaire Answer Date [...] your living situation today? I have a [facility] place to live 12/17/2023 Education Answer [...] st Contact Info) Description 07/02/2024 12:45 PM TECHNICAL SOLUTION ARCHITECT Procedure visit Division of Pain Medicine in [place], [place] [address] [place] [address] Sintia Ovalle P.A.-C., M.S. [address] [place] [address] Scheduled Referrals Name Type Priority Associated Diagnoses Orde r Schedule Pain Medicine office visit (clinic) Outpatient Referral Routine Expected: 03/08/2024, Expires: 06/08/2025 documented as of this encounter Visit Diagnoses Diagnosis Occipital Neuralgia- Primary Headache Chronic documented in this encounter Care Teams Health Screener Relationship Specialty Start Date End Date Elsewhere, Pcp PCP - General Internal Medicine 09/30/22 documented as of this encounter
--- OUTSIDE RECORDS SUMMARY | 2024-04-10 15:06 | XMS_ITS | Encounter Summary ---
Author Organization [facility] Address [address] [place] [address] Care Team Providers Care Cook Soup Name Role Phone Elsewhere, Pcp Primary Care Provider Unavailabl e Reason for Referral * Outpatient (Routine) - Authorized Specialty Diagnoses / Procedures Referred By Edgar aaron Referred To Contact Diagnoses Myofascial Pain Syndrome Myalgia Pain Sacroiliac Procedures PM Trigger point injection Amelia Salgado APRN, CNS, D.N.P. [address] [place] [address] [facility] Referral ID Status Reason Start Date Expiration Date V isits Requested Visits Authorized [id number] Authorized 03/12/2024 03/12/2025 1 1 Reason for Visit * Outpatient (Routine) - Closed Specialty Diagnoses / Procedures Referred By Edgar aaron Referred To Contact Diagnoses Myofascial Pain Syndrome Procedures PM Trigger point injection Amelia Salgado APRN, CNS, D.N.P. [address] [place] [address] [facility] Referral ID Status Reason Start Date Expiration Date Visits Re quested Visits Authorized [id number] Closed 12/22/2023 12/21/2024 1 1 Encounter Details Date Type Department Care Team (Latest Contact Info) Description 03/12/2024 10:00 AM CDT Procedure visit Division of Pain Medicine in [place], [place] [address] [place] [address] Amelia Salgado APRN, RF DESIGN ENGINEER, D.N.P. [address] [place] [address] Myalgia (Primary Dx); Myofascial Pain Syndrome; Pain Sacroiliac Social History Tobacco Use Types Packs/Day Years Used Date Smoking Tobacco: Never Passive Smoke Exposure: Current Smokeless Tobacco: Never Alcohol Use Standard Drinks/Week Comments Not Currently 0 (1 standard drink = 0.6 oz pur e alcohol) Maybe 1-2 drinks a year [facility] [employer] Answer Date Recorded In the past 12 months has [employer], gas, oil, or water [employer] threatened to shut off services in your [...] week 09/27/2022 How often do you attend [facility] or rastafarian services? Never 09/27/2022 Do you belong to any clubs o r organizations such as episcopal groups, unions, fraternal or athletic groups, or [...] [facility] of Occupat ional [facility] - Occupational Stress Questionnaire Answer Date Recorded [...] st Contact Info) Description 07/02/2024 12:45 PM SUPPLY CHAIN GENERALIST Procedure visit Division of Pain Medicine in [place], [place] [address] [place] [address] Sintia Ovalle P.A.-C., M.S. [address] [place] [phone] documented as of this encounter Procedures Procedure Name Priority Date/Time Associated Diagnosis Comments OK INJ TRIGGER PNT<=2 MUS Routine 03/12/2024 10:00 AM CDT Myofascial Pain Syndrome documented in this encounter Results * OK INJ TRIGGER PNT<=2 MUS (03/12/2024 10:00 AM [...] to proceed with local +corticosteroid. ABN singed. BHANU Paul APRN, D.N.P. PROCE DURE/MINOR SURGICAL [...] mg documented in this encounter Care Teams Cook Soup Relationship Specialty Start Date End Date Elsewhere, Pcp PCP - General Internal Medicine 09/30/22 documented as of this encounter
--- OUTSIDE RECORDS SUMMARY | 2024-04-10 15:06 | XMS_ITS | Referral Summary ---
Author Organization [facility] Address [address] [place] [address] Care Team Providers Care Hose Handler Name Role Phone Elsewhere, Pcp Primary Care Provider Unavailabl e Source Comments Patient records contain information from all sites at [facility]. For routine questions regarding patient records, call [phone] during business hours, M-F 8:00 AM - 5:00 PM Central Time. Record requests for emergency care only can be directed to [phone] at any time.[facility] Encounters Date Type Department Care Team Description 03/12/2024 10:00 AM CDT Procedure visit Division of Pain Medicine in [place], [place] [address] [place] [address] Amelia Salgado APRN, TIRE ROOM SUPERVISOR, D.N.P. Myalgia (Primary Dx); Myofascial Pain Syndrome; Pain Sacroiliac 03/08/2024 Orders Only Division of Pain Medicine in [place], [place] [address] [place] [address] Amelia Salgado APRN, TIRE ROOM SUPERVISOR, D.N.P. Occipital Neuralgia (Primary Dx); Headache Chronic 01/26/2024 9:11 AM CDT - 01/26/2024 11:59 PM CDT Hospital Encounter Division of Pain Medicine in [place], [place] [address] [place] [address] Amelia Salgado APRN, TIRE ROOM SUPERVISOR, D.N.P. Pain Low Back Unspecified; Spondylosis Lumbar Without Myelopathy Discharge Disposition: Home or Self Care 01/16/2024 Clinical Communication Division of Pain Medicine in [place], [place] [address] [place] [address] Amelia Salgado APRN, TIRE ROOM SUPERVISOR, D.N.P. from Last 3 Months Allergies Active [...] times/day. Reason: High A1C 09/01/19 21 Active dihydroergotamine (DHE) 1 mg/mL injection Inject 0.5-1 mg intramuscularly as needed. 08/03/19 22 Active esomeprazole (NexIUM) [address] capsule daily. 09/23/19 Active Lantus Solostar U-100 Insulin 100 unit/mL (3 mL) injection 2 (two) times a day. 09/04/19 Active insulin lispro 100 unit/mL injection 3 (three) times a day. 09/02/19 23 Active lancets Test 4 times per day. 09/01/19 Active levothyroxine (SYNTHROID, LEVOTHROID) 200 mcg tablet daily. 09/04/19 Active lisinopriL (PRINIVIL,ZESTRIL) 5 mg tablet Take 5 mg by mouth daily. 09/04/19 Active lorata-dine D 10-240 mg per 24 hr tablet Take 1 tablet by mouth at bedtime. 09/04/19 Active metoprolol succinate (TOPROL-XL) 25 mg 24 [...] x 1 1/2 needle as needed. 08/21/19 Active Monoject Regular Luer 3 mL syringe as needed. 08/21/19 Active tiZANidine (ZANAFLEX) 4 mg tablet Take [...] Maybe 1-2 drinks a year [facility] [employer]ities Answer Date Recorded In the past 12 months has e [employer], [employer], oil, or water [employer] threatened to shut off services in your [...] week 09/27/2022 How often do you attend [facility] or adventist services? Never 09/27/2022 Do you [...] and heating? 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 [address] [place] [address] Medical Devices Implanted Type Area Model And Dye Person Device Identifier Shelf Expiration Date Model / Serial / Lot Knee Implant-11/21/19 24 Implanted:05/0 01/2024 (Quantity not on file) Knee Implant Left: Knee Procedures Procedure Name Priority Date/Time Associated Diagnosis Comments [place] INJ TRIGGER PNT<=2 MUS Routine 03/12/2024 10:00 AM CDT Myofascial Pain Syndrome FL LUMBAR SPINE RADIOFREQUENCY DENERVATION Routine 01/26/2024 10:32 AM CDT Pain Low Back 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 GLUCOSE POCT, B Routine 01/26/2024 9:32 AM CDT from Last 3 Months Results * [place] INJ TRIGGER PNT<=2 MUS (03/12/2024 10:00 AM [...] to proceed with local +corticosteroid. ABN singed. Amleia Salgado APRN, BHANU, D.N.P. PROCE DURE/MINOR SURGICAL [...] loss: 0 Implants: 0 Amelia Salgado APRN, TIRE ROOM SUPERVISOR, D.N.P. FLUOR O GUIDED PAIN PROCEDURES Performing Organization Address [facility] de Phone Number MMODAL NA * (ABNORMAL) Glucose, POCT (01/26/2024 9:32 AM CDT) Glucose, POCT, B 152(H) 70 - 140 mg/dL 01/26/2024 9:49 AM CDT PCMO Site Capillary 01/26/2024 9:49 AM CDT PCMO Blood 01/26/2024 9:32 AM CDT 01/26/2024 9:49 AM CDT Unknown Provider LAB POCT ORDERABLES- MANUAL Performing Organization Address [facility] Co de Phone Number POC [facility] [address] [place] [id number] PCMO [facility] POC [address] [place] [address] from Last 3 Months Advance Directives For more information, please contact: [phone] Documents on File Type Date Recorded Patient Vice President Integrated Expl anation Advance Directives 10/05/2022 8:01 PM Arlen Alice Rincon HCPOA/ADVOCATE/AGENT/R EPRESENTATIVE/SURROGAT E Healthcare Agents on File Name Relationship Healthcare Agent Relationship Communication Arlen Madrid Mother Health Care Agent [email or web address] Dudley Madrid Brother First Alternate Health Care Agent Elena Rincon Friend Second Alternate Health Care Agent Care Teams Hose Handler Relationship Specialty Start Date End Date Elsewhere, Pcp PCP - General Internal Medicine 09/30/22
--- OUTSIDE RECORDS SUMMARY | 2024-04-10 15:06 | XMS_ITS | Patient Health Record ---
Author Organization [facility] Address [address] [place] [address] [address] [place] [address] Care Team Providers Care Carpenter General Name Role Phone Gita Marie Primary Care Provider Unavaileva RosseFabrizio Unavailable [phone] Raymond BERNAL FIRER PORTABLE BOILER, Mandi Unavailable Unavaila ble Allergies Allergen (clinical [...] Once a day at bedtime Active Nystatin 705536 UNIT/GM 1 application Externally Twice a day [...] W/U Status Risk Notes Problem Chronic pain (48608416) Other chronic pain (G89.29) Active confirmed Problem Lumbosacral spondylosis without myelopathy (22753255) Spondylosis without myelopathy or radiculopathy, lumbosacral region (M47.817) Active confirmed Problem Lumbosacral radiculopathy (1140076) Radiculopathy, lumbosacral region (M54.17) Active confirmed Problem Low back pain (710878320) Low back pain, unspecified (M54.50) Active confirmed Plan Of Treatment No Information Insurance Providers Payer Name Payer Address Payer Phone Subscriber Number Group Number Insured Name Patient Relationship to Insured Coverage Start Date Coverage End Date [facility] [place] Blue [place] PMAP [address] [address] [place] [address] [id number] [facility] Laura [place] Self - patient is the insured [facility] [address] [address] [place], [place] [id number] Laura Madrid Self - patient is the [...]
--- OUTSIDE RECORDS SUMMARY | 2024-04-10 15:06 | XMS_ITS | Encounter Summary ---
Author Organization [facility] Address [address] [place] [address] Care Team Providers Care Seedling Puller Name Role Phone Elsewhere, Pcp Primary Care Provider Unavailabl e Encounter Details Date Type Department Care Team (Late st Contact Info) Description 01/16/2024 Clinical Communication Division of Pain Medicine in [place], [place] [address] [place] [phone] Amelia Salgado APRN, JET BLADE POLISHER, D.N.P. [address] [place] [address] Social History Tobacco Use Types Packs/Day Years Used Date Smoking Tobacco: Never Passive Smoke Exposure: Current Smokeless Tobacco: Never Alcohol Use Standard Drinks/Week Comments Not Currently 0 (1 standard drink = 0.6 oz pur e alcohol) Maybe 1-2 drinks a year [facility] Utilities Answer Date Recorded In the [...] often do you attend chur ch or tenriism services? Never 09/27/2022 Do you belong to [...] and heating? Not hard at all 01/05/2023 [facility] [place] of Occupat ional Health - Occupational Stress [...] your living situation today? 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 [address] [place] [phone] documented as of this encounter Visit Diagnoses Not on filedocumented in this encounter Care Teams Seedling Puller Relationship Specialty Start Date End Date Elsewhere, Pcp PCP - General Internal Medicine 09/30/22 documented as of this encounter
--- OUTSIDE RECORDS SUMMARY | 2024-04-10 15:06 | XMS_ITS ---
Author Organization [facility] Address [address] [place] [address] Care Team Providers Care College Intern Name Role Phone Unavailable Unavailable Unavailable Surgery Details Not on file Complications Check Surgery Details section. Procedure Estimated Blood Loss Check Surgery Details section. Procedure Findings Check Surgery Details section. Procedure Specimens Taken Check Surgery Details section.
--- OUTSIDE RECORDS SUMMARY | 2024-04-10 15:06 | XMS_ITS | Encounter Summary ---
Author Organization [facility] Address [address] [place] [address] Care Team Providers Care Body Former Name Role Phone Elsewhere, Pcp Primary Care Provider Unavailabl e Encounter Details Date Type Department Care Team (Late st Contact Info) Description 01/04/2024 Clinical Communication Division of Pain Medicine in [place], [place] [address] [place] [phone] Amelia Salgado APRN, FLIGHT STEWARD, D.N.P. [address] [place] [address] Social History Tobacco Use Types Packs/Day Years Used Date Smoking Tobacco: Never Passive Smoke Exposure: Current Smokeless Tobacco: Never Alcohol Use Standard Drinks/Week Comments Not Currently 0 (1 standard drink = 0.6 oz pur e alcohol) Maybe 1-2 drinks a year [facility] Utilities Answer Date Recorded In the [...] often do you attend chur ch or orthodoxy services? Never 09/27/2022 Do you belong to any clubs o r organizations such as tenriism groups, unions, fraternal or athletic groups, or [...] and heating? Not hard at all 01/05/2023 [facility] [place] of Occupat ional Health - Occupational Stress [...] your living situation today? I have a [facility] place to live 12/17/2023 Education Answer [...] st Contact Info) Description 07/02/2024 12:45 PM POULTRY VETERINARIAN Procedure visit Division of Pain Medicine in [place], [place] [address] [place] [phone] Sintia Ovalle P.A.-C., M.S. [address] [place] [phone] documented as of this encounter Visit Diagnoses Not on filedocumented in this encounter Care Teams Body Former Relationship Specialty Start Date End Date Elsewhere, Pcp PCP - General Internal Medicine 09/30/22 documented as of this encounter
--- OUTSIDE RECORDS SUMMARY | 2024-04-10 15:06 | XMS_ITS | Clinical Summary ---
Author Organization [facility] Address [place], [place] [address] Care Team Providers Care Custom Seamstress Name Role Phone Kar Soto MD Unavailable Olvin Vega MD Unavailable Bhaskar Page MD Unavailable [phone] Major Chandler MBBS Unavailable Isak Nielson MD Unavailable Jillian Daley NP Unavailable Ania Avalos PsyD, LP Unavailable Na Estes MD Primary Care Provider [phone] Allergies Active Allergy Reactions Criticality Noted Date [...] ONE TIME DAILY 90 Tablet 02/28/2024 Active doxycycline 100 mg tabletIndications:Si nusitis, unspecified chronicity, unspecified location Take 1 Tablet (100 mg) by mouth two times daily for 7 days. 14 Tablet 04/08/2024 4 Active albuterol HFA (PRO-AIR; VENTOLIN; PROVENTIL) 90 mcg/actuation inhalerIndications:A cute bronchitis, unspecified organism Inhale 1-2 Puffs by mouth every 4 hours if needed for Shortness Of Breath or Wheezing. 1 Each 04/08/2024 Active Active Problems Patient Care Coordination No [...] Hyperlipidemia 03/14/2014 Overview (03/14/2014): Ran calculations Mar 14.;2014: With age43,[id number],hdl51, mzl820, treated hypertension, +dm. 10year ATHEROSCLEROTIC CARDIOVASCULAR DISEASE [...] 01/22/01: Surgery: subtotal thyroidectomy Pathology (reviewed at [facility] - see notes from [facility] that are currently in the system as [...] follow up with Dr. Tam Daley with [facility] for several years. This included a whole [...] Encounters Date Type Department Care Team Description 04/08/2024 8:40 AM CDT Office Visit [facility] [address] [place] [address] Dudley Baldwin MD Sinus Problem; Cough; Ear Problem 04/08/2024 Travel 04/02/2024 Orders Only [facility] at [facility] [address] [place] [address] Jillian Daley NP 1 scan: (1-Ord) 04/01/2024 04/01/2024 1:30 PM CDT Office Visit [facility] [address] [place] [address] Jillian Daley NP CV Electrophysiology Est (EP follow up paroxysmal SVT) 04/01/2024 Travel 03/25/2024 8:30 AM CDT Telemedicine [facility] [address] [facility] [address] [place] [address] Ania Avalos PsyD, LP Mental Health Intake; Telehealth (/) 03/25/2024 Travel 03/06/2024 10:00 AM CDT Procedure Only [facility] [address] [place] [address] Yo Owens L Ac Acupuncture 03/06/2024 Travel 03/04/2024 8:30 AM CDT Telemedicine [facility] [address] [facility] [address] [facility] [address] [place] [address] Ania Avalos PsyD, LP Individual Therapy; Telehealth (/) 03/03/2024 Travel 03/01/2024 1:00 PM CDT Procedure Only [facility] [address] [place] [address] Yo Owens L Ac Acupuncture 03/01/2024 Travel 02/25/2024 [place] [facility] [address] [place] [address] Na Estes MD Refill Request (Lisinopril) 02/23/2024 1:15 PM CDT Orders Only [facility] [address] [place] [address] Lab 02/23/2024 8:40 AM CDT Telemedicine [address] [address] Leslee Dee PA Telehealth (Possible UTI) 02/23/[address] [address] Leslee Dee PA Medication Management (ciprofloxacin HCl (CIPRO) 500 mg tablet and citalopram (CELEXA) 20 mg tablet ) 02/23/2024 Telephone [facility] [address] [place] [address] Na Estes MD Medication Management (ciprofloxacin HCl (CIPRO) 500 mg tablet and citalopram (CELEXA) 20 mg tablet) 02/23/2024 Travel 02/22/2024 1:30 PM CDT Procedure Only [facility] [address] [place] [address] Yo Owens L Ac Acupuncture 02/22/2024 Travel 02/19/2024 Refill [facility] [address] [place] [address] Gita Maire MD Refill Request (Contour Next Test Strips) 02/16/2024 8:30 AM CDT Telemedicine [facility] [address] [facility] [address] [facility] [address] [place] [address] Robbie, Ania A, PsyD, LP Individual Therapy; Telehealth 02/16/2024 Travel 02/05/2024 Refill [facility] [address] [place] [address] Gita Marie MD Refill Request (Atorvastatin) 01/29/2024 8:30 AM CDT Telemedicine [address] [facility] [address] [place] [address] Robbie, Ania A, PsyD, LP Individual Therapy; Telehealth (/) 01/25/2024 Travel 01/24/2024 8:30 AM CDT Procedure Only [facility] [address] [place] [address] Yo Owens L Ac Acupuncture 01/23/2024 1:00 PM CDT Office Visit [facility] [place] [facility] [address] [facility] [address] [place] [address] Jerod Rivera, DPM Foot Problem (Follow up left heel callus- tried lotion with no help of softening the callus, soaked her feet with 1 part vinegar/ 3 parts water per advised by her turbo generator oiler has helped, and pumice stone will get some skin off. ) 01/23/2024 Travel 01/18/2024 Travel 01/17/2024 7:30 AM CDT [place] [facility] [address] [place] [address] Na Estes MD Pre-Op Exam (Total Right knee replacement /01/30/24/Dr Sven Owusu ) 01/16/2024 2:30 PM CDT Procedure Only [facility] [address] [place] [address] Roman Yannickliliane Joann Claude Ac Acupuncture 01/16/2024 Travel 01/11/2024 11:00 AM CDT Procedure Only [facility] [address] [facility] [address] Roman Yannickliliane Joann Claude Ac Acupuncture 01/10/2024 Travel from Last 3 Months Immunizations Name Administration Dates Next Due COVID-19 vaccine (Nadanu 30mcg/0.3mL) PF, MDV 10/08/2021,05/04/2021,10/30/2020,2020 DT (Age < [...] Disease Father cad Hypertension Mother improved after intermediate Other Mother scleroderma Cancer Other first cousin [...] Sex Assigned at Female 07/05/2021 12:17 AM SIZE STAMPER Gender Identity Female 07/05/2021 12:17 AM SIZE STAMPER Sexual Orientation Straight 07/05/2021 12 :17 AM SIZE STAMPER Obstetrics History Para Term AB IAB SAB Ectopic Multiple Livin g Live Births 0 0 0 0 0 0 0 0 0 0 Last Filed Vital Signs Vital Sign Reading Time Taken Comments Blood Pressure 134/84 04/08/2024 9:05 AM CDT Pulse 67 04/08/2024 8:49 AM CDT Temperature 36.6 ??C (97.9 ??F) 04/08/2024 8:49 AM CD T Respiratory Rate 18 01/17/2024 8:17 AM CDT Oxygen Saturation 99% 04/08/2024 8:49 AM CDT Inhaled Oxygen Concentration - - Weight 178.3 kg (393 lb) 04/08/2024 8:49 AM CDT Height 174.5 cm (5' 8.7) 04/08/2024 8:49 AM CDT Body Mass Index 58.54 04/08/2024 8:49 AM CDT Plan of Treatment Upcoming Encounters Date Type Department Care Team (Late st Contact Info) Description 04/11/2024 8:30 AM CDT Telemedicine [facility] [address] [facility] [address] [place] [address] Ania Avalos PsyD, LP [address] [facility] [address] [place] [address] 04/19/2024 10:30 AM CDT Procedure Only [facility] [address] [place] [address] Yo Owens L Ac [address] [place] [address] 04/29/2024 8:30 AM CDT Telemedicine [facility] [address] [place] [address] Robbie, Ania A, PsyD, LP [address] [place] [address] 05/03/2024 10:00 AM CDT Procedure Only [facility] [address] [place] [address] Yo Owens L Ac [address] [place] [address] 05/22/2024 8:30 AM SIZE STAMPER Telemedicine [facility] [address] [place] [address] Robbie, Ania A, PsyD, LP [address] [place] [address] 06/10/2024 8:30 AM SIZE STAMPER Telemedicine [facility] [address] [address] Robbie, Ania A, PsyD, LP [address] [place] [address] 07/01/2024 8:30 AM SIZE STAMPER Telemedicine [facility] [address] [place] [address] Robbie, Ania A, PsyD, LP [address] [place] [address] 07/15/2024 8:30 AM SIZE STAMPER Telemedicine [facility] [address] [place] [address] Robbie, Ania A, PsyD, LP [address] [place] [address] 08/05/2024 8:30 AM SIZE STAMPER Telemedicine [facility] [address] [place] [address] Robbie, Ania A, PsyD, LP [address] [place] [address] 08/26/2024 8:30 AM SIZE STAMPER Telemedicine [facility] [address] [place] [address] Robbie, Ania A, PsyD, LP [address] [place] [address] 09/16/2024 8:30 AM SIZE STAMPER Telemedicine [facility] [address] [place] [address] Robbie, Ania A, PsyD, LP [address] [place] [address] Health Maintenance Due Date Last Done Comments HIV for age 15-65 1986 Fecal testing sDNA-FIT ([place] guard) for age 45-75 2016 COVID-19 vaccine series ( season) 2024 04/02/2022, 10/08/2021, 05/04/2021, Additional history exists Mammogram for age 45-75 07/07/2024 07/07/20 23, 06/17/2022, 06/14/2021, Additional history exists Depression screening for age 12+ 03/06/2025 03/06/2024, 03/04/2024, 03/03/2024, Additional history exists BMI (ht and wt on same day) for age 18+ 04/08/2025 04/08/2024, 01/17/2024, 12/28/2023, Additional history exists Tetanus booster 06/12/2027 06/12/2017, [...] Completed 02/25/2022 Medical Devices Implanted Type Area Counseling Services Manager Device Identifier Shelf Expiration Date Model / Serial / Lot Iud, Mirena - [id number] Implanted:Qty: 1 on 01/02/2015 by Mireya Avila MD at [facility] N/A: Uterus R-BACILIO 08/04/2017 [id number] Screw Foot 5x50mm Fixos Comp Implanted:Qty: 1 on 08/20/2018 by Jerod Rivera DPM at [facility] Left: Calcaneus Description:SCREW FOOT 5X50M [...] MAMMO BILAT SCREENING Routine 07/07/2023 8:34 AM SIZE STAMPER Visit for screening mammogram LC LIPID PANEL AND CHOL/HDL RATIO Routine 09/02/2022 7:35 AM SIZE STAMPER Type 2 diabetes mellitus with hyperglycemia, with long-term current use of insulin (HC) ANTI HCV Routine 02/25/2022 12:11 PM CDT Need for hepatitis C screening test from Last 3 Months or Most Recently Relevant to Health Maintenance Results * EKG 12 LEAD (04/01/2024 12:00 AM CDT) Jillian Daley STRAND FORMING MACHINE OPERATOR EKG ORD * (ABNORMAL) URINALYSIS MICROSCOPIC (02/23/2024 11:18 AM CDT) RBC 0-2 0-2, None Seen /HPF 02/23/2024 11:30 AM CDT [facility] WBC >100(A) 0-2, 3-5, None Seen /HPF 02/23/2024 11:30 AM CDT [facility] BACTERIA Many(A) None Seen, Rare, Few Bacteria/H PF 02/23/2024 11:30 AM CDT [facility] EPITHELIAL CELLS Few None Seen, Few Epi/HPF 02/23/2024 11:30 AM CDT [facility] WHITE CELL CLUMPS Present(A) (none) 02/23/2024 11:30 AM CDT [facility] Urine URINE SPECIMEN / Unknown Non-Blood / Unknown 02/23/2024 11:18 AM CDT 02/23/2024 11:19 AM CDT Narrative [facility] - 02/23/2024 11:30 AM CDT There are numerous leukocytes (packed WBC) which may affect the accuracy of results. Interpret with caution. Leslee GUERRERO URINE Performing Organization Address [facility]/ZIP Co de Phone Number [facility] [address] [place], [place] [phone] * (ABNORMAL) URINE CULTURE (02/23/2024 11:18 AM CDT) CULTURE RESULT(A) 02/26/2024 6:51 AM CDT [facility] CULTURE >100,000 CFU/mL Escherichia coli 02/26/2024 6:51 AM CDT [facility] CULTURE <10,000 CFU/mL Multiple organisms probable contaminants 02/26/2024 6:51 AM CDT [facility] Urine URINE SPECIMEN / Unknown Non-Blood / Unknown 02/23/2024 11:18 AM CDT 02/23/2024 11:19 AM CDT Narrative Organism Antibiotic Method Susceptibility Escherichia coli TRIMETHOPRIM/SULF <=08/04: S Escherichia coli AMPICILLIN <=2: S Escherichia [...] coli NITROFURANTOIN <=16: S Leslee GUERRERO MICROBIOLOGY Performing Organization Address [facility]/ZIP Co de Phone Number [facility] [address] [place] [address], [place] * (ABNORMAL) UA W/ SEDIMENT EXAM REFLEXED PER CRITERIA (02/23/2024 11:18 AM CDT) COLOR Yellow Yellow Color 02/23/2024 11:24 AM CDT [facility] CLARITY Slightly Cloudy(A) Clear Clarity 02/23/2024 11:24 AM CDT [facility] SPECIFIC GRAVITY,URINE 1.015 1.010, 1.015, 1.020, 1.025 02/23/2024 11:24 AM CDT [facility] PH,URINE 6.0 6.0, 7.0, 8.0, 5.5, 6.5, 7.5, 8.5 02/23/2024 11:24 AM CDT [facility] UROBILINOGEN, QUALITATIVE Normal Normal EU/dl 02/23/2024 11:24 AM CDT [facility] PROTEIN, URINE 30(A) Negative mg/dL 02/23/2024 11:24 AM CDT [facility] GLUCOSE, URINE Negative Negative mg/dL 02/23/2024 11:24 AM CDT [facility] KETONES,URINE Negative Negative mg/dL 02/23/2024 11:24 AM CDT [facility] BILIRUBIN,URI NE Negative Negative 02/23/2024 11:24 AM CDT [facility] OCCULT BLOOD,URINE Trace(A) Negative 02/23/2024 11:24 AM CDT [facility] NITRITE Negative Negative 02/23/2024 11:24 AM CDT [facility] LEUKOCYTE ESTERASE Moderate(A) Negative 02/23/2024 11:24 AM CDT [facility] Urine URINE SPECIMEN / Unknown Non-Blood / Unknown 02/23/2024 11:18 AM CDT 02/23/2024 11:19 AM CDT Leslee GUERRERO URINE [facility] [address] [place] [address] * HEMOGLOBIN (01/17/2024 8:11 AM CDT) HEMOGLOBIN 12.5 12.0 - 16.0 g/dL 01/17/2024 10:25 PM CDT [facility] MCV 84 80 - 100 fL 01/17/2024 10:25 PM CDT [facility] Blood BLOOD SPECIMEN / Unknown Venipuncture / Unknown 01/17/2024 8:11 AM CDT 01/17/2024 8:12 AM CDT Na Estes MD HEMATOLOGY Performing Organization Address City/[facility]/ZIP Co de Phone Number [facility] [address] [place] [address], * POTASSIUM (01/17/2024 8:11 AM CDT) Pathologist [facility] POTASSIUM 4.0 3.5 - 5.1 mmol/L 01/17/2024 10:43 PM CDT [facility] Blood BLOOD SPECIMEN / Unknown Venipuncture / Unknown 01/17/2024 8:11 AM CDT 01/17/2024 8:12 AM CDT Na Estes MD CHEMISTRY Performing Organization Address City/[facility] Co de Phone Number [facility] [address] [place] [address], [place] * XR MAMMO BILAT SCREENING (07/07/2023 8:34 AM SIZE STAMPER) Anatomical Region Laterality Modality BREASTS, Breast Left, Breast Right Bilateral Mammography Impressions 07/07/2023 12:59 PM SIZE STAMPER ??There is no radiographic evidence for malignancy. ??Recommend annual mammograms. MAMMOGRAM ASSESSMENT: ??ACR 1 Negative PATIENTS: You will also receive a letter with your examination results in an easy to read format. ??If you have questions about your results, please contact your referring provider. Narrative 07/07/2023 12:59 PM SIZE STAMPER For Patients: As a result of the Century Cures Act, medical imaging exams and procedure reports are released immediately into your electronic medical record. You may view this report before your referring provider. If you have questions, please contact your health care provider. XR MAMMO BILAT SCREENING [[id number]] CLINICAL HISTORY: ??This is an asymptomatic 53 y.o. patient. INDICATION FOR EXAM: Mammogram Screening. TECHNIQUE: CC & MLO views were obtained. ??This study was evaluated with the assistance of Computer-Aided Detection. COMPARISON FILM: Yes 06/17/22 [employer] 06/14/21 [employer] FINDINGS: ??The breasts have scattered areas of fibroglandular density. There are no dominant masses, suspicious micro calcifications or areas of architectural distortion. Yenni Sanchez STRAND FORMING MACHINE OPERATOR MAMMO * LC LIPID PANEL AND CHOL/HDL RATIO (09/02/2022 7:35 AM SIZE STAMPER) Cholesterol, Total 144 100 - 199 mg/dL 09/06/2022 11:06 PM [facility] Triglycerides 148 0 - 149 mg/dL 09/06/2022 11:06 PM [facility] HDL Cholesterol 43 >39 mg/dL 3 11:06 PM [facility] VLDL Cholesterol Blake 26 5 - 40 mg/dL 09/06/2022 11:06 PM [facility] LDL Chol Calc ([facility]) 75 0 - 99 mg/dL 09/06/2022 11:06 PM [facility] T. Chol/HDL Ratio 3.3 0.0 - 4.4 ratio 09/06/2022 11:[address] [facility] ([facility]) Comment: ?T. Chol/HDL Ratio ?Men ??Women ?1/2 Avg.Risk ??3.4 ?3.3 ?Avg.Risk ??5.0 ?4.4 ? 2X Avg.Risk ??9.6 ?7.1 ? 3X Avg.Risk 23.4 ?? 11.0 Blood BLOOD SPECIMEN / Unknown Venipuncture / Unknown 09/02/2022 7:35 AM SIZE STAMPER 09/02/2022 7:38 AM SIZE STAMPER Narrative [facility] - 09/06/2022 11:06 PM SIZE STAMPER Performed at: ??01 - [facility] [place] [address] ??[id number] Recycling Program Manager: Ben Muñoz MD, Phone: ??[phone] Gita Marie MD SEND OUTS [facility] ([facility]) [address] [place] [address], * ANTI HCV (02/25/2022 12:11 PM CDT) HEPATITIS C ANTIBODY Non-React josefina Non-React josefina 02/25/2022 11:20 PM CDT [facility] Comment:Antibodies to HCV no t detected; does not exclude the possibility of exposure to HCV. Blood BLOOD SPECIMEN / Unknown Venipuncture / Unknown 02/25/2022 12:11 PM CDT 02/25/2022 12:13 PM CDT Kell GUERRERO SEND OUTS [facility] [address] [place] [address], from Last 3 Months or Most Recently Relevant to Health Maintenance Advance Directives Documents on File Type Date Recorded Patient Wind Turbine Technician Expl anation Healthcare Directive 09/10/2022 023 Healthcare [...] 8:23 AM 09/27/2019 11:54 AM Care Teams Custom Seamstress Relationship Specialty [place] [address] [place] [address] PCP - General Internal Medicine 06/12/23 Kar Soto MD Neurology 05/14/14 Olvin Vega MD [address] [facility] [address] [place] [address] Endocrinology 05/14/14 Bhaskar Page MD [address] [place] [address] 100 [place] [address] Gastroenterology 05/14/14 Major Chandler MBBS [address] [place] [address] Consulting Physician Cardiovascular Disease 02/05/19 Isak Nielson MD [address] [place] [address] Consulting Physician Cardiology - Electrophysiology 04/22/19 Jillian Daley NP [address] [place] [address] Nurse Practitioner Cardiology - Electrophysiology 07/31/19 Ania Avalos PsyD, LP [address] [place] [address] Psychologist Psychology 10/03/19
== END 2024-04-10 15:04 | disposition home or self-care (01) ==
LOC: WOUND 15:03
PROVIDERS: Visit Provider Surgery
DX: L97.818 Non-pressure chronic ulcer of other part of right lower leg with other specified severity (principal); E11.8 Type 2 diabetes mellitus with unspecified complications; Z79.4 Long term (current) use of insulin
CPT/HCPCS: G0463

== ENCOUNTER 2024-06-19 12:35 | Outpatient (CLI) | payer MEDICARE, MEDICAID, SELFPAY | END 2024-06-19 12:36 | disposition home or self-care (01) | LOC: WOUND 12:37 | PROVIDERS: Visit Provider Surgery | DX: I89.0 Lymphedema, not elsewhere classified (principal); I87.311 Chronic venous hypertension (idiopathic) with ulcer of right lower extremity; L97.811 Non-pressure chronic ulcer of other part of right lower leg limited to breakdown of skin | CPT/HCPCS: 87070; G0463 ==

== ENCOUNTER 2024-06-24 10:15 | Outpatient (RCR) | payer MEDICARE, MEDICAID, SELFPAY ==
--- NOTE | 2023-11-15 12:26 | PT.OPE ---
PT [place] Outpatient Eval PT [facility] Outpatient Eval Start: 11/15/23 07:46 Freq: Status: Active Protocol: Document 11/15/23 12:24 CJT (Rec: 11/15/23 12:25 CJT [id number]) E-signed By Harmeet Batista PT Physical Therapy Outpatient Evaluation Insurance Information Recert Due Date 02/13/24 Insurance Name Medicare B,Medicaid Medical Diagnosis Z96.652 - L knee replacement Treating Diagnosis Z96.652 - L knee replacement Referring Sven Mitchell Subjective Subjective Pt presents for pre-op total knee arthroplasty appointment. Pt is scheduled for L TKA on 11/21/[address] Owusu. Will be completing her outpatient therapy here in [place] which has already been scheduled. Initial post-op evaluation scheduled for . Pt lives in a split level home with her mother and brother. They will be available for assistance following her surgery. Pt states that she knows her weight (391lbs) will make her rehab process very challenging for her but is motivated for the challenge and to improve her overall health. Pt would like to be able to climb steps into family's home in [place] (15 steps) by this time next year without pain as well as walk around the block without pain. Pt lost her father to cancer 9 years ago. 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 Pre- surgical consultation was completed including education on expected post-surgical swelling/bruising/pain, appropriate use of pain medication, icing to reduce pain/swelling, exercises following surgery, therapy outcomes and safety in and outside his home. Pt completed several reps of each of the exercises issued in his post- TKA folder and shows good understanding of these. I did encourage the patient to practice all of these exercises at least two more times prior to surgery as well as read each of the pages on post-surgical expectations and safety and ambulation expectations following their surgery. All questions were answered to the patient's satisfaction. Skilled PT services are medically necessary to address deficits and return patient to highest level of function. Recommend physical therapy sessions 2 reducing to 1/week for 12 weeks, beginning 11/23/2023. Pt agrees with this plan. Printout of HEP was given for I completion and pt gives verbal understanding of each exercise. Primary Functional Limitations Walking, stairs, standing Plan of Care Rehabilitation Potential Good Physical Therapy Goals STG - To be completed in 2-3 weeks: 1. Pt will report consistent use of ice as well as elevation of surgical limb while resting to reduce inflammation and swelling. 2. Pt will demonstrate 90 degrees of knee flexion on surgical limb to reduce risk of contracture development and progress through rehabilitation as expected. 3. Pt to show appropriate use of all AD's with minimal gait deviations and no LOB with all ambulation to reduce risk of falls and restore normal gait mechanics. 4. Pt will demo full knee extension to reduce risk of contracture in posterior knee and allow for ease of ambulation. LTG - To be completed in 8-12 weeks: 1. Pt to be I with HEP so that they may I manage progression of symptoms. 2. Pt will demonstrate 120 degrees knee flexion on surgical limb so that they may descend steps without restrictions in ROM. 3. Pt will perform 10+ squats of full depth with good control over medial/lateral deviation of knees to show improved functional strength to assist with transfers. 4. Pt will demonstrate 5/5 MMT knee flexion/extension of surgical limb to provide greater support to knee joint and allow for ease of ambulation. 5. Pt will ambulate with no AD and minimal gait deviations so that they may return to walking safely and comfortably for exercise and pleasure. Treatment Plan/Direct Interventions Electrical Stimulation,Gait Training,Ice/Cold/ Vasopneumatic,Joint Mobilization,Manual Therapy, Neuromuscular Re-ed,Self-Care/ Home Management,Therapeutic Activities,Therapeutic Exercises Frequency/Duration 2 reducing to 1/week for 12 weeks Patient Will Be Discharged From Therapy Completion of LTG(s),Skills Plateau,Independent w/HEP, Independently Progressing Evaluation Billing Untimed Code Treatment Minutes 40 PT Eval No Charge No Complexity Low Certification Information Initial Certification Date 11/15/23 Ending Certification Date 02/13/24 Provider Signature Shows Agreement With POC & Medical Necessity Physician Signature & Date Requested Please Sign/Date Here Physician Comment/Change : Physician NPI Number #
--- NOTE | 2023-11-23 14:32 | PT.OPDN ---
PT [place] Outpatient Daily Note PT [facility] Outpatient Daily Note Start: 11/15/23 07:46 Freq: Status: Active Protocol: Document 11/23/23 12:55 CJT (Rec: 11/23/23 13:23 CJT [id number]) E-signed By Harmeet Batista, PT PT OP Daily Progress Note Visit Information Note Type Daily Note Visit Number 2 Insurance Authorized Visits tbd Physician Authorized Visits eval and treat Insurance Information Recert Due Date 02/13/24 Insurance Name Medicare B,Medicaid Medical Diagnosis Z96.652 - L knee replacement Treating Diagnosis Z96.652 - L knee replacement Referring Sven Mitchell Subjective Subjective Pt doing fair. Reports she is struggling with managing her pain. Rates as 5-6/10 and notes she feels like she has been trying to play catch-up with her pain since her nerve block wore off. Was able to get into her home and up steps much easier than she anticipated. Slept a few hours last night. Pain Comments 12/24 Preferred Name Alea Home Exercise Home Exercise Comments Post-op TKA protocol Objective Other/Pertinent Objective L knee AROM: 0-4-70 Patient Instructed in Risks/Benefits Yes Therapeutic Exercise Therapeutic Exercise Minutes (minutes) 20 Therapeutic Exercise: To Restore Ankle pumps x 10 Functional Status Quad sets 2 x 10, 5 hold HS sets 2 x 10, 5 hold SAQ 2 x 10 SLR 2 x 10 NuStep x 6 minutes, level 4 Triple flexion on [place] ball 2 x 20 Manual Therapy Techniques Manual Therapy Minutes (minutes) 12 Manual Therapy Techniques Decongestive massage to entire L LE to reduce swelling. Grade I mobilizations to L knee in supine to reduce pain. Other Interventions Provided Other Interventions Provided Vasopneumatic: GameReady, 20 minutes, light pressure, pt in supine with legs elevated. Treatment Minutes Untimed Code Treatment Minutes 30 Timed Code Treatment Minutes 32 Total Treatment Time 62 Billing Units Neuromuscular Reeducation Units 1 Therapeutic Exercise Units 1 Re-Evaluation Units 1 Vasopneumatic Device Units 1 Assessment/Impression Assessment/Impression Alea is progressing exceptionally well following L TKA (DOS: 11/21/23). Her L knee AROM is 0-4-70 at this time and quad set is excellent. She is also able to perform SLR with good neuromuscular control and no assistance from PT. She did report today that she was having trouble managing her pain since the nerve block wore off. Her pain was tolerable during today's re-evaluation. At this time there are no signs of infection. Pts dressing was peeling away from the skin when she arrived. I did take a quick look at her incision which looked appropriate and then used some KT tape to keep the dressing adhered to her skin. Alea should continue to perform her exercises 3 times daily as well as walk each waking hour. Recommend continued PT services to address deficits and return pt to highest level of function. Plan of Care Physical Therapy Goals STG - To be completed in 2-3 weeks: 1. Pt will report consistent use of ice as well as elevation of surgical limb while resting to reduce inflammation and swelling. 2. Pt will demonstrate 90 degrees of knee flexion on surgical limb to reduce risk of contracture development and progress through rehabilitation as expected. 3. Pt to show appropriate use of all AD's with minimal gait deviations and no LOB with all ambulation to reduce risk of falls and restore normal gait mechanics. 4. Pt will demo full knee extension to reduce risk of contracture in posterior knee and allow for ease of ambulation. LTG - To be completed in 8-12 weeks: 1. Pt to be I with HEP so that they may I manage progression of symptoms. 2. Pt will demonstrate 120 degrees knee flexion on surgical limb so that they may descend steps without restrictions in ROM. 3. Pt will perform 10+ squats of full depth with good control over medial/lateral deviation of knees to show improved functional strength to assist with transfers. 4. Pt will demonstrate 5/5 MMT knee flexion/extension of surgical limb to provide greater support to knee joint and allow for ease of ambulation. 5. Pt will ambulate with no AD and minimal gait deviations so that they may return to walking safely and comfortably for exercise and pleasure. Daily Plan of Care Continue per POC Recertification Information Provider [employer] Agreement With POC & Medical Necessity
--- NOTE | 2023-12-22 10:04 | PT.OPDN ---
PT [facility] Daily Note PT [facility] Daily Note Start: 11/15/23 07:46 Freq: Status: Active Protocol: Document 12/22/23 09:12 CJT (Rec: 12/22/23 10:04 CJT [id number]) E-signed By Harmeet Batista, PT PT OP Daily Progress Note Visit Information Note Type Recert/Progress Note Visit Number 10 Insurance Authorized Visits 99 Physician Authorized Visits eval and treat Insurance Information Recert Due Date 02/13/24 Insurance Name Medicare B,Medicaid Medical Diagnosis Z96.652 - L knee replacement Treating Diagnosis Z96.652 - L knee replacement Referring Sven Mitchell Subjective Subjective Pt doing well. Concerned about a suture coming from her incision which we were able to determine was actually a hair . Pt not too sore after last session. Preferred Name Alea Precautions Treatment Precautions/Contraindications DOS: 11/21/23 Home Exercise Home Exercise Comments Post-op TKA protocol Objective Other/Pertinent Objective L knee AROM: 0-114 L quad: 5/5 MMT L hamstrin/5 MMT Patient Instructed in Risks/Benefits Yes Therapeutic Exercise Therapeutic Exercise Minutes (minutes) 34 Therapeutic Exercise: To Restore NuStep - 10 minutes, seat 12 Functional Status Supine knee flexion stretch x 60, x 2' Stairs, 2 x 10 with use of both handrails Seated knee flexion stretch x 4' Squats with hands at rail x 10 Arm bar stretch x 60 Manual Therapy Techniques Manual Therapy Minutes (minutes) 14 Manual Therapy Techniques CFM to scar to mobilize and diminish adhesions. Grade II-III ML patellar mobilizations to facilitate motion. MFR with TigerTail and palm to L quad, anteromedial and anterolateral knee to diminish adhesions Treatment Minutes Timed Code Treatment Minutes 48 Total Treatment Time 48 Billing Units Manual Therapy Units 1 Therapeutic Exercise Units 2 Assessment/Impression Assessment/Impression Alea is progressing exceptionally well in her first month post-op. She is ambulating with a SPC with fairly normal gait mechanics, has been able to negotiate steps with [id number] pattern while using handrails and is measuring 5/5 MMT for L knee flexion and extension. Pt continues to lack knee flexion ROM which is to be expected but she did achieve full extension and has maintained this throughout her rehab so far. Pt measures 114 degrees of flexion today following stretching. As I mentioned earlier, Alea is progressing very well and I have no concerns for her at this time. Recommend continued PT services to address deficits and return pt to highest level of function. Plan of Care Physical Therapy Goals STG - To be completed in 2-3 weeks: 1. Pt will report consistent use of ice as well as elevation of surgical limb while resting to reduce inflammation and swelling. MET 2. Pt will demonstrate 90 degrees of knee flexion on surgical limb to reduce risk of contracture development and progress through rehabilitation as expected. MET 3. Pt to show appropriate use of all AD's with minimal gait deviations and no LOB with all ambulation to reduce risk of falls and restore normal gait mechanics. MET 4. Pt will demo full knee extension to reduce risk of contracture in posterior knee and allow for ease of ambulation. MET LTG - To be completed in 8-12 weeks: 1. Pt to be I with HEP so that they may I manage progression of symptoms. 2. Pt will demonstrate 120 degrees knee flexion on surgical limb so that they may descend steps without restrictions in ROM. 3. Pt will perform 10+ squats of full depth with good control over medial/lateral deviation of knees to show improved functional strength to assist with transfers. 4. Pt will demonstrate 5/5 MMT knee flexion/extension of surgical limb to provide greater support to knee joint and allow for ease of ambulation. 5. Pt will ambulate with no AD and minimal gait deviations so that they may return to walking safely and comfortably for exercise and pleasure. Daily Plan of Care Continue per POC Recertification Information Provider Signature Shows Agreement With POC & Medical Necessity
--- NOTE | 2024-02-01 13:45 | PT.OPDN ---
PT [place] [facility] Daily Note PT [facility] Daily Note Start: 11/15/23 07:46 Freq: Status: Active Protocol: Document 02/01/24 13:02 MICHELLET (Rec: 02/01/24 13:45 CJT [id number]) E-signed By Harmeet Batista, PT PT OP Daily Progress Note Visit Information Note Type Re-Evaluation Visit Number 17 Insurance Authorized Visits 99 Physician Authorized Visits eval and treat Insurance Information Recert Due Date 02/13/24 Insurance Name Medicare B,Medicaid Medical Diagnosis Z96.652 - L knee replacement Z96.651 - R knee replacement Treating Diagnosis Z96.652 - L knee replacement Z96.651 - R knee replacement Referring Sven Mitchell Subjective Preferred Name Alea Ashraf Pt presents 2 days post-op R TKA. Pain is 6/10 this PM. Pt reports she is doing well. Had some burning pain in her R quad but this seems to be improving. Ambulating with FWW and was able to sleep most of the night last night. Exercises going well at home. Controlling pain with oxy and tylenol. No concerns at this time. Pain Comments 12/24 Date of Next Physician Visit 02/07/24 Date of Surgery (If applicable) 01/30/24 Home Exercise Home Exercise Comments Access Code: [email or web address] URL: [email or web address] Date: 01/02/2024 Prepared by: Harmeet Batista Exercises - Mini Squat with Counter Support - 1 x daily - 7 x weekly - 3 sets - 10 reps - Standing March with Counter Support - 1 x daily - 7 x weekly - 3 sets - 10 reps - Standing Hip Abduction with Counter Support - 1 x daily - 7 x weekly - 3 sets - 10 reps - Standing Hip Extension with Counter Support - 1 x daily - 7 x weekly - 3 sets - 10 reps - Heel Raises with Counter Support - 1 x daily - 7 x weekly - 3 sets - 10 reps - Sit to Stand - 1 x daily - 7 x weekly - 3 sets - 10 reps Objective Other/Pertinent Objective R knee AROM: 0-4-78 Quad set: good Skin Inspection: minimal bruising noted along tourniquet placement; pt does have minimal serosanguinous drainage at superior pole of dressing; skin feels appropriately warm to the touch. Patient Instructed in Risks/Benefits Yes Therapeutic Exercise Therapeutic Exercise Minutes (minutes) 20 Therapeutic Exercise: To Restore Quad set 2 x 10, 5 hold, Functional Status ankle pumps x 20, hamstring set 2 x 10, 5 hold SAQ 2 x 10 Triple flexion on montenegrin ball x 20 SLR 2 x 10 Passive knee extension stretch x 60 Nustep 5 min, Seat 16, level 3 Manual Therapy Techniques Manual Therapy Minutes (minutes) 10 Manual Therapy Techniques Decongestive massage to entire R LE to reduce swelling. Gentle STM to R quad, HS, gastroc, soleus to reduce tissue tension. Other Interventions Provided Other Modalities Provided Vasopneumatic: Gameready; light pressure, R knee, pt positioned in supine with legs elevated. Other Modalities Untimed Minutes 15 Treatment Minutes Untimed Code Treatment Minutes 30 Timed Code Treatment Minutes 30 Total Treatment Time 60 Billing Units Therapeutic Exercise Units 2 Re-Evaluation Units 1 Vasopneumatic Device Units 1 Assessment/Impression Assessment/Impression Pt is doing very well in her first few days post-op. Pain is well-controlled with use of oxy and Tylenol. R knee AROM measures 0-4-78 this date. Pt demonstrates good quad set and able to perform repeated reps of SLR with minimal extension lag. Ambulating with minimal gait deviations with use of FWW. Pt did have some drainage from superior pole of incision during today's re- evaluation. I asked Alea to keep an eye on this and to not remove the dressing until her first post-op orthopedic appointment next week, or following next PT session. She agrees. The nature of the pts condition was explained and all questions were answered to the pts satisfaction. Skilled PT services are medically necessary to address deficits and return patient to highest level of function. Recommend physical therapy sessions 2 reducing to 1/week for 12 weeks. Pt agrees with this plan. Printout of HEP was given for I completion and pt gives verbal understanding of each exercise. Plan of Care Physical Therapy Goals STG - To be completed in 2-3 weeks: 1. Pt will report consistent use of ice as well as elevation of surgical limb while resting to reduce inflammation and swelling. 2. Pt will demonstrate 90 degrees of knee flexion on surgical limb to reduce risk of contracture development and progress through rehabilitation as expected. 3. Pt to show appropriate use of all AD's with minimal gait deviations and no LOB with all ambulation to reduce risk of falls and restore normal gait mechanics. 4. Pt will demo full knee extension to reduce risk of contracture in posterior knee and allow for ease of ambulation. LTG - To be completed in 8-12 weeks: 1. Pt to be I with HEP so that they may I manage progression of symptoms. 2. Pt will demonstrate 120 degrees knee flexion on surgical limb so that they may descend steps without restrictions in ROM. 3. Pt will perform 10+ squats of full depth with good control over medial/lateral deviation of knees to show improved functional strength to assist with transfers. 4. Pt will demonstrate 5/5 MMT knee flexion/extension of surgical limb to provide greater support to knee joint and allow for ease of ambulation. 5. Pt will ambulate with no AD and minimal gait deviations so that they may return to walking safely and comfortably for exercise and pleasure. Daily Plan of Care Continue per POC Recertification Information Provider Signature Shows Agreement With POC & Medical Necessity
--- NOTE | 2024-02-19 14:03 | PT.OPDN ---
PT [facility] Outpatient Daily Note PT [facility] Outpatient Daily Note Start: 11/15/23 07:46 Freq: Status: Active Protocol: Document 02/19/24 13:03 CJT (Rec: 02/19/24 14:02 CJT [email or web address]) E-signed By Harmeet Batista, PT PT OP Daily Progress Note Visit Information Note Type Recert/Progress Note Visit Number 20 Insurance Authorized Visits 99 Physician Authorized Visits eval and treat Insurance Information Recert Due Date 02/13/24 Insurance Name Medicare B,Medicaid Medical Diagnosis Z96.652 - L knee replacement Z96.651 - R knee replacement Treating Diagnosis Z96.652 - L knee replacement Z96.651 - R knee replacement Referring Sven Mitchell Subjective Preferred Name Alea Pascale Pt feeling much better today. has had a very rough week following recent dose of antibiotics. Had lots of N/V with antibiotics. Pain Comments 12/24 Date of Next Physician Visit 02/07/24 Date of Surgery (If applicable) 01/30/24 Home Exercise Home Exercise Comments Access Code: [email or web address] URL: [email or web address] Date: 01/02/2024 Prepared by: Harmeet Batista Exercises - Mini Squat with Counter Support - 1 x daily - 7 x weekly - 3 sets - 10 reps - Standing March with Counter Support - 1 x daily - 7 x weekly - 3 sets - 10 reps - Standing Hip Abduction with Counter Support - 1 x daily - 7 x weekly - 3 sets - 10 reps - Standing Hip Extension with Counter Support - 1 x daily - 7 x weekly - 3 sets - 10 reps - Heel Raises with Counter Support - 1 x daily - 7 x weekly - 3 sets - 10 reps - Sit to Stand - 1 x daily - 7 x weekly - 3 sets - 10 reps Objective Other/Pertinent Objective R knee AROM: 0-2-100 Quad set: excellent Patient Instructed in Risks/Benefits Yes Therapeutic Exercise Therapeutic Exercise Minutes (minutes) 40 Therapeutic Exercise: To Restore Nustep x 10 min, seat 13->11 Functional Status Triple flexion 2 x 20 SLR isometrics 5 x 5 SLR 2 x 10 LAQ, 4# 2 x 20 ea Gastroc stretch on slant board 2 x 60 Leg Press, 10# 2 x 15 Manual Therapy Techniques Manual Therapy Minutes (minutes) 15 Manual Therapy Techniques Decongestive massage to entire R LE to reduce swelling. STM to VMO bundle, add/abd muscles to increase tissue extensibility and reduce pain. Treatment Minutes Timed Code Treatment Minutes 55 Total Treatment Time 55 Billing Units Manual Therapy Units 1 Therapeutic Exercise Units 3 Assessment/Impression Assessment/Impression Pt tolerates treatment well. Alea has progressed well during her time in therapy following her R TKA. Cellulitis in R LE did cause minor setback with adverse affects to antibiotics and excessive swelling in R LE. She is feeling much better this week and was able to return to low level exercise without issue. R knee AROM measures 0-2-100 degrees this date, quad set is excellent, and SLR is performed without extensor lag. I have no major concerns for Alea at this time. Will continue to progress exercises and therapies as appropriate. Recommend continued PT services to address deficits and return pt to highest level of function. Plan of Care Physical Therapy Goals STG - To be completed in 2-3 weeks: 1. Pt will report consistent use of ice as well as elevation of surgical limb while resting to reduce inflammation and swelling. MET 2. Pt will demonstrate 90 degrees of knee flexion on surgical limb to reduce risk of contracture development and progress through rehabilitation as expected. MET 3. Pt to show appropriate use of all AD's with minimal gait deviations and no LOB with all ambulation to reduce risk of falls and restore normal gait mechanics. MET 4. Pt will demo full knee extension to reduce risk of contracture in posterior knee and allow for ease of ambulation. LTG - To be completed in 8-12 weeks: 1. Pt to be I with HEP so that they may I manage progression of symptoms. 2. Pt will demonstrate 120 degrees knee flexion on surgical limb so that they may descend steps without restrictions in ROM. 3. Pt will perform 10+ squats of full depth with good control over medial/lateral deviation of knees to show improved functional strength to assist with transfers. 4. Pt will demonstrate 5/5 MMT knee flexion/extension of surgical limb to provide greater support to knee joint and allow for ease of ambulation. 5. Pt will ambulate with no AD and minimal gait deviations so that they may return to walking safely and comfortably for exercise and pleasure. Daily Plan of Care Continue per POC Recertification Information Provider Signature Shows Agreement With POC & Medical Necessity
--- NOTE | 2024-04-09 14:10 | PT.OPDN ---
PT [place] Outpatient Daily Note PT [facility] Outpatient Daily Note Start: 11/15/23 07:46 Freq: Status: Active Protocol: Document 04/09/24 12:55 CJT (Rec: 04/09/24 14:09 CJT [email or web address]) E-signed By Harmeet Batista, PT PT OP Daily Progress Note Visit Information Note Type Recert/Progress Note Visit Number [id number] Insurance Authorized Visits 99 Physician Authorized Visits eval and treat Insurance Information Recert Due Date 07/08/24 Insurance Name Medicare B,Medicaid Medical Diagnosis Z96.652 - L knee replacement Z96.651 - R knee replacement Treating Diagnosis Z96.652 - L knee replacement Z96.651 - R knee replacement Referring Sven Mitchell Subjective Preferred Name Alea Date of Next Physician Visit 02/07/24 Date of Surgery (If applicable) 01/30/24 Home Exercise Home Exercise Comments Access Code: [email or web address] URL: [email or web address] Date: 01/02/2024 Prepared by: Harmeet Batista Exercises - Mini Squat with Counter Support - 1 x daily - 7 x weekly - 3 sets - 10 reps - Standing March with Counter Support - 1 x daily - 7 x weekly - 3 sets - 10 reps - Standing Hip Abduction with Counter Support - 1 x daily - 7 x weekly - 3 sets - 10 reps - Standing Hip Extension with Counter Support - 1 x daily - 7 x weekly - 3 sets - 10 reps - Heel Raises with Counter Support - 1 x daily - 7 x weekly - 3 sets - 10 reps - Sit to Stand - 1 x daily - 7 x weekly - 3 sets - 10 reps Objective Other/Pertinent Objective Knee AROM (initial, final) R knee AROM: 0-0-106, 0-0-110 L knee AROM: 0-0-106, 0-0-110 Patient Instructed in Risks/Benefits Yes Therapeutic Exercise Therapeutic Exercise Minutes (minutes) 40 Therapeutic Exercise: To Restore NuStep - 10 minutes, level 5, Functional Status seat 11 Leg Press (Strength), seat 12, 50# x 10; 100# 2 x 10 Hamstring curl machine, 50# x 20, 70# x 15 Knee extension machine, 30# x 15, 40# x 15 Back Extension machine, 70# 3 x 12 Gastroc stretch on slant board x 60 Soleus stretch on slant board x 60 ea Prone knee flexion stretch x 60 ea Manual Therapy Techniques Manual Therapy Minutes (minutes) 15 Manual Therapy Techniques Decongestive massage to entire R LE to reduce swelling Treatment Minutes Timed Code Treatment Minutes 55 Total Treatment Time 55 Billing Units Manual Therapy Units 1 Therapeutic Exercise Units 3 Assessment/Impression Assessment/Impression Alea continues to show fair progress despite her recent issues with wound healing at R distal good. She reports today that her wound appears to be healing well and she has been changing her dressings every other day. She is due for a dressing change today and will take pictures in order to continue to track progress. Alea has lost some knee flexion ROM bilaterally over the past few weeks. Today we were able to reach 0-0-110 degrees in B knees. Previously she had measured 0- 0-115 bilaterally. Quads and hamstrings are testing 5/5 MMT bilaterally and pts functional strength continues to improve. As Alea has missed her last two therapy sessions, we scaled back on overall exercise volume and intensity today. We will continue to ramp up her exercises as she tolerates moving forward with emphasis on walking, stairs, and functional strength. I have no concerns for Alea's progress at this time. Recommend continued PT services to address deficits and return pt to highest level of function. Plan of Care Physical Therapy Goals STG - To be completed in 2-3 weeks: 1. Pt will report consistent use of ice as well as elevation of surgical limb while resting to reduce inflammation and swelling. MET 2. Pt will demonstrate 90 degrees of knee flexion on surgical limb to reduce risk of contracture development and progress through rehabilitation as expected. MET 3. Pt to show appropriate use of all AD's with minimal gait deviations and no LOB with all ambulation to reduce risk of falls and restore normal gait mechanics. MET 4. Pt will demo full knee extension to reduce risk of contracture in posterior knee and allow for ease of ambulation. MET LTG - To be completed in 8-12 weeks: 1. Pt to be I with HEP so that they may I manage progression of symptoms. 2. Pt will demonstrate 120 degrees knee flexion on surgical limb so that they may descend steps without restrictions in ROM. 3. Pt will perform 10+ squats of full depth with good control over medial/lateral deviation of knees to show improved functional strength to assist with transfers. 4. Pt will demonstrate 5/5 MMT knee flexion/extension of surgical limb to provide greater support to knee joint and allow for ease of ambulation. 5. Pt will ambulate with no AD and minimal gait deviations so that they may return to walking safely and comfortably for exercise and pleasure. Daily Plan of Care Continue per POC Recertification Information Initial Certification Date 11/15/23 Recertification Start Date 04/09/24 Recertification Due Date 07/08/24 Reasons to Continue Skilled Therapy PT services are medically necessary at this time in order to progress pts functional strength, B knee AROM, and general muscular endurance so that she may continue to work towards her health and fitness goals and achieve optimal level of well- being. Rehabilitation Potential Good. Continued Plan of Care and Interventions Therapeutic exercise, therapeutic activities, neuro- reeducation, manual therapy services as needed. Provider Signature Shows Agreement With POC & Medical Necessity Physician Comment/Change Comment or Changes Physician NPI Number #
[2024-04-11 09:54] VITALS: BMI 58.5
[2024-04-11 16:35] VITALS: BMI 58.5
--- NOTE | 2024-04-11 16:37 | OT.OPLE2 ---
OT Outpatient Lymphedema Eval* OT Outpatient Lymphedema Eval* Start: 04/11/24 09:53 Freq: Status: Active Protocol: Document 04/11/24 09:54 DRAKE (Rec: 04/11/24 16:35 DRAKE [id number]) E-signed By Madelyn Perez, OTR/L, CLT OT Outpatient Evaluation Details Type Type Eval Complexity Medium Insurance Information Insurance Information Other Insurance [place] [employer] [place] Plan Insurance Information Comments Was discharged from the wound care clinic yesterday 04/10/24 Height and Weight Height Height 175 cm Weight Weight 179.19 kg Weight Measurement Method Standing Scale BMI Body Mass Index (kg/m?) 58.5 BMI Classification Extreme Obesity Obesity Class III OT OP Lymphedema Evaluation Current Condition/Medical Diagnosis Referring Provider Dr. Sven Owusu Medical Diagnoses R artificial knee joint, Z96. 651 Morbid Obesity, E66.01 Localized Edema, R60.0 Treatment Diagnosis Pain in R knee, M25.561 Localized Edema, R60.0 Date Of Onset 01/30/24 Medical Contraindications Depression,Heart Condition,HTN ,CA,Latex Allergy Medical History Medical History DVT,Depression,Obesity Medical History Comments Tobacco use disorder F17.200 - Nicotine dependence, unspecified, uncomplicated ( ICD-10) Morbid obesity E66.01 - Morbid (severe) obesity due to excess calories (ICD-10) Recurrent urinary tract infection N39.0 - Urinary tract infection, site not specified (ICD-10) Depression F32.A - Depression, unspecified (ICD-10) SVT (supraventricular tachycardia) I47.10 - Supraventricular tachycardia, unspecified (ICD- 10) Hypokalemia E87.6 - Hypokalemia (ICD-10) Hx of coronary angiogram Z98.890 - Other specified postprocedural states (ICD-10) COVID-19 long hauler U09.9 - Post COVID-19 condition, unspecified (ICD-10 ) Esophageal stricture K22.2 - Esophageal obstruction (ICD-10) Paroxysmal SVT ( supraventricular tachycardia) I47.10 - Supraventricular tachycardia, unspecified (ICD- 10) Uncontrolled type 2 diabetes mellitus DVT (deep venous thrombosis) I82.409 - Acute embolism and thrombosis of unspecified deep veins of unspecified lower extremity (ICD-10) Pulmonary embolism I26.99 - Other pulmonary embolism without acute cor pulmonale (ICD-10) Hyperlipidemia E78.5 - Hyperlipidemia, unspecified (ICD-10) Hypertension I10 - Essential (primary) hypertension (ICD-10) Gastroparesis K31.84 - Gastroparesis (ICD-10 ) Papillary thyroid carcinoma C73 - Malignant neoplasm of thyroid gland (ICD-10) GERD (gastroesophageal reflux disease) K21.9 - Gastro-esophageal reflux disease without esophagitis (ICD-10) Surgical History Surgical History TKA on the R LE 01/30/24-Had cellulitis afterwards TKA on the L LE 11/21/23-without complications Medications Medications Home Medications acetaminophen 1,000 mg PO Q6H PRN atorvastatin 40 mg PO HS blood sugar diagnostic ( Contour Next Test Strips) As directed cephalexin 500 mg PO QID citalopram 30 mg PO DAILY cyclobenzaprine 10 mg PO TID PRN cyproheptadine 4 mg PO QHS PRN dihydroergotamine 0.5 - 1 mg IM DAILY PRN dulaglutide (Trulicity) 4.5 mg subcut Q7D esomeprazole magnesium 40 mg PO DAILY insulin aspart (niacinamide) 100 unit/mL (3 mL) (Fiasp FlexTouch U-100 Insulin) 1 - 40 units subcut TIDWM insulin glargine (Lantus Solostar U-100 Insulin) 80 units subcut BID ketorolac 30 - 60 mg IM DAILY PRN levothyroxine 200 mcg PO QAM lisinopril 5 mg PO DAILY loratadine-pseudoephedrine 10- 240 mg ER (Loratadine-D) 1 tab PO DAILY metoclopramide HCl (Reglan) 10 mg PO Q6H PRN metoprolol succinate ER 25 mg PO DAILY nystatin 1 applic topical TID PRN ondansetron HCl 4 mg PO Q8H PRN oxycodone 2.5 - 5 mg (0.5 - 1 x 5 mg) PO Q4-6H PRN MDD 6 tabs per day oxycodone 5 mg PO Q6H PRN pramipexole 0.75 - 1 mg PO HS pregabalin 300 mg PO BID sodium fluoride-pot nitrate 1. 1-5 % (PreviDent 5000 Enamel Protect) 1 applic dental HS tizanidine 4 mg PO HS Contraindications Contraindications General Family History Family History of Lymphedema No Subjective Subjective This is a very pleasant 53 year old female who underwent a TKA on November 21, 2023 to the L knee without complications, and now more recently TKA 01/29 on the R knee which ended up with Cellulitis after surgery. She had her most recent ortho f/u apt on . She has been on 2 rounds of Keflex. She had an appointment in the wound clinic on the and now has since been discharged from them with a healed wound to the R anterior good. New layer of skin is very fragile and thin, provided patient with education on optimal skin care . Living Situation Current Living Situation Mother Patient Difficulties Difficulties With Any Of The Following Walking,Dressing,Reaching Feet & Toes,Bathing/Showering, Preparing Meals Impairments Impairments Loss of Mobility,Difficulties With ADLs,Limb Heaviness,Poor Clothing Fit Problem List Problem List Limited Knowledge of Skin Care & Infection Precautions,Does Not Have a HEP,Does Not Know How To Bandage For Limb Reduction,Does Not Have Appropriate Compression Garments For LT Management, Presents With Impaired Mobility/ROM Exercise History Does Patient Exercise Regularly No Pain Pain Yes Pain Comments Post surgical knee pain ( tightness) with increased swelling of the R knee (10/24) Compression History Does Patient Currently Wear Compression No During Daytime Does Patient Currently Wear Compression No At Night Current Swelling (Location/Pitting/Texture) Pitting Scale: 0 = No pitting 1+ Tissue returns to normal almost immediately 2+ Tissue returns after 15-30 seconds 3+ Tissue returns after 1-1/2 minutes 4+ Tissue returns after 2-3 minutes N/A Tissue no longer pits due to induration Tissue texture: Soft or indurated Skin Changes Fibrosis,Limited Skin Mobility Positive Stemmer's Sign No Capillary Refill Slow Type of Swelling Post Surgery/Traumatic Edema Staging Staging Stage 2 Circumferential Measurements Lower Extremity Left Lower Extremity Great Toe (in cm) 7.6 MTP (in cm) 23.6 Arch (in cm) 24 Calcaneus (in cm) 30.5 Ankle (in cm) 27.8 10 cm above Calcaneus Measurement 30.5 20 cm above Calcaneus Measurement 42.3 30 cm above Calcaneus Measurement 59.2 40 cm above Calcaneus Measurement 55.4 50 cm above Calcaneus Measurement 67 Total Girth in cm 367.9 LE Volume C 740.27 LE Volume D 1063.60 LE Volume E 2068.50 LE Volume F 2613.71 LE Volume G 2989.45 Lower Extremity Volume Total in cm 9,475.53 Right Lower Extremity Great Toe (in cm) 7.7 MTP (in cm) 24.2 Arch (in cm) 26.4 Calcaneus (in cm) 30 Ankle (in cm) 28.5 10 cm above Calcaneus Measurement 34.3 20 cm above Calcaneus Measurement 48.5 30 cm above Calcaneus Measurement 60 40 cm above Calcaneus Measurement 63.5 50 cm above Calcaneus Measurement 72 Total Girth in cm 395.1 LE Volume C 823.75 LE Volume D 1377.29 LE Volume E 2350.78 LE Volume F 3035.15 LE Volume G 3657.44 Lower Extremity Volume Total in cm 11,244.41 Assessment Assessment This is a very pleasant 53 year old female who underwent a TKA on November 21, 2023 to the L knee without complications, and now more recently TKA 01/29 on the R knee which ended up with Cellulitis after surgery. She had her most recent ortho f/u apt on . She has been on 2 rounds of Keflex. She had an appointment in the wound clinic on the and now has since been discharged from them with a healed wound to the R anterior good. New layer of skin is very fragile and thin, provided patient with education on optimal skin care . Measurements taken on , R LE is 28.1 cm's larger in circumference compared to the L LE. Patient reports pain and tightness in the knee. Fluid above and below the R knee joint is fibrotic (non pitting ). No drainage/weeping with LE . Barriers to achieving goals in POC include: Hx of Cellulitis of right lower extremity (Feb 2024), Morbid obesity, Current Everyday Smoker and Uncontrolled type 2 diabetes mellitus with hypoglycemia. Patient Goals Click To Default Short Term Goals Standard Goals Short Term Goals Goal: Patient and or caregiver will understand skin precautions to decrease risk of infection and further skin/ swelling related complications Goal: Patient will experience decreased edema in order to improve tissue health and decrease risk for infection/ cellulitis Goal: Patient will perform HEP with minimal assistance in order to improve lymphatic flow and venous return Goal: Patient will perform self MLD protocol with minimal assistance to help reduce swelling and improve ROM and mobility Click To Default Composing Machine Operator/Tender Goals Standard Goals Composing Machine Operator/Tender Goals GOAL: Patient will experience increased ROM and mobility in order to improve safety and independence with transfers and mobility GOAL: Patient and/or caregiver will be independent with HEP and swelling management to reduce risk for edema relapse and to reduce risk for infection Treatment Plan Treatment Plan Evaluation,Edema Control,Joint Mobilization,Manual Therapy, Wound Care/Scar Management, Therapeutic Exercise,Self-Care /Home Management,Education Expected Frequency 1-2x Week Expected Duration 8-10 Weeks Certification Certification Statement I Certify That: Therapy Services Provided, Therapy Plan Established, Therapy Plan Reviewed Certification Information Clinic ID # [id number] Initial Certification Date 04/11/24 Recertification Due Date 07/10/24 Provider Signature Required Yes Provider Signature Shows Agreement With POC & Medical Necessity Physician NPI Number Write NPI# Here Physician Comment/Change Comment or Changes Physician Signature & Date Requested Please Sign/Date Here
[2024-04-16 09:17] VITALS: BMI 58.5
[2024-04-18 11:12] VITALS: BMI 58.5
[2024-04-23 15:37] VITALS: BMI 58.5
[2024-05-07 09:38] VITALS: BMI 58.5
[2024-05-09 15:25] VITALS: BMI 58.5
[2024-05-14 09:53] VITALS: BMI 58.5
[2024-05-28 16:53] VITALS: BMI 58.5
[2024-05-30 09:40] VITALS: BMI 58.5
[2024-06-04 08:38] VITALS: BMI 58.5
[2024-06-06 07:57] VITALS: BMI 58.5
[2024-06-10 11:58] VITALS: BMI 58.5
[2024-06-12 12:16] VITALS: BMI 58.5
[2024-06-17 11:16] VITALS: BMI 58.5
[2024-06-24 09:54] VITALS: BMI 58.5
== END 2024-06-24 12:43 | disposition home or self-care (01) ==
PROVIDERS: PCP Orthopaedic Surgery; Visit Provider Orthopaedic Surgery
DX: Z96.653 Presence of artificial knee joint, bilateral (principal); M17.12 Unilateral primary osteoarthritis, left knee; Z51.89 Encounter for other specified aftercare
CPT/HCPCS: 97016; 97032; 97110; 97112; 97116; 97140; 97161; 97164; 97166; 97530; 97535; X5282

== ENCOUNTER 2024-06-26 13:38 | Outpatient (CLI) | payer MEDICARE, MEDICAID, SELFPAY | END 2024-06-26 13:39 | disposition home or self-care (01) | LOC: WOUND 13:38 | PROVIDERS: Visit Provider Surgery | DX: I89.0 Lymphedema, not elsewhere classified (principal); E11.8 Type 2 diabetes mellitus with unspecified complications; Z79.4 Long term (current) use of insulin; E66.01 Morbid (severe) obesity due to excess calories; Z68.43 Body mass index [BMI] 50.0-59.9, adult | CPT/HCPCS: G0463 ==

== ENCOUNTER 2024-08-10 10:35 | Emergency (ER) | payer MEDICARE, MEDICAID, SELFPAY ==
--- OUTSIDE RECORDS SUMMARY | 2024-08-10 10:37 | XMS_ITS | Referral Summary ---
Author Organization [facility] Address [address] [place] [address] Care Team Providers Care Durability Engineer Name Role Phone Elsewhere, Pcp Primary Care Provider Unavailabl e Source Comments Patient records contain information from all sites at [facility]. For routine questions regarding patient records, call [phone] during business hours, M-F 8:00 AM - 5:00 PM Central Time. Record requests for emergency care only can be directed to [phone] at any time.[facility] Encounters Date Type Department Care Team Description 07/19/2024 Clinical Communication Division of Pain Medicine in [place], [place] [address] [place] [address] Sintia Ovalle P.A.-Alvaro., M.S. Plan of Care ([facility]) 07/02/2024 12:45 PM PROCUREMENT COORDINATOR Procedure visit Division of Pain Medicine in [place], [place] [address] [place] [address] Sintia Ovalle P.A.-Alvaro., M.S. Pain Low Back Unspecified (Primary Dx); Myofascial Pain Syndrome; Myalgia; Pain Sacroiliac from Last 3 Months Allergies Active Allergy [...] 48 hours.Topical betadine ok. I-131 dye only Isosorbide Mononitrate Rash 06/22/2018 Latex Hives (Reselect Reaction) High 11/26/2008 As child had hives due to backing on carpeting..no other exposure issues. Levofloxacin Diarrhea,GI intolerance Medium 12/25/2006 Medications * This document contains information received from the source organization and may not represent a complete record from that organization. insulin syringe-needle U-100 0.3 mL 31 gauge [...] (two) times a day. 09/04/19 23 Active lancets Test 4 times per [...] 4 mg tablet as needed. 12/08/19 Active UltiCare Pen Needle 31 gauge x [...] mL syringe as needed. 08/21/19 24 Active senna 8.6 mg tablet Take 8.6 [...] as needed for pain. 11/13/19 24 Active Fiasp FlexTouch U-100 Insulin 100 unit/mL (3 mL) pen 06/13/20 24 Active metoclopramide (Reglan) 10 mg tablet Take 10 mg by mouth every 6 (six) hours as needed. 02/13/20 Active lisinopriL 5 mg tablet Take 1 tablet by mouth daily. 06/06/20 Active loratadine-pseudo ephedrine (Claritin-D 24-hour) 10-240 mg per 24 hr tablet Take 1 tablet by mouth daily. 06/12/20 Active insulin aspart U-100 (NovoLOG FlexPen) 100 unit/mL (3 mL) pen daily. 05/25/20 Active albuterol 90 mcg/actuation inhaler Inhale 1-2 puffs every 4 (four) hours as needed. 04/08/20 Active metoprolol succinate (Toprol XL) 25 mg 24 hr tablet Take 1 capsule by mouth daily. Active pregabalin (Lyrica) 300 mg capsule Take 1 capsule (300 mg total) by mouth 2 (two) times a day. 180 capsule 3 07/02/20 Active tiZANidine (Zanaflex) 4 mg tablet Take 1 tablet (4 mg total) by mouth at bedtime. 90 tablet 3 07/02/20 Active Hospital, Clinic, or Other Facility Administered [...] e alcohol) Maybe 1-2 drinks a year [facility] Utilities Answer Date Recorded In the past 12 months has e [employer], gas, oil, or water [employer] threatened to shut off services in your [...] How often do you attend chur or gnosticist services? Never 09/27/2022 Do you [...] and heating? Not hard at all 01/05/2023 [facility] [place] of Occupat ional Health - Occupational Stress [...] a [facility] to live 12/17/2023 Education Answer Date Recorded What is the highest level of school you have completed or the highest degree you have received? Associate degree: academic program 09/27/2022 Comments No Sex and Gender Information Value Date Recorded Sex Assigned at Female 09/27/2022 11:01 PM CDT Legal Sex Female 11:29 PM PROCUREMENT COORDINATOR Gender Identity Female 09/27/2022 11:01 PM CDT Sexual Orientation Straight 09/27/2022 11 :01 PM CDT Last Filed Vital Signs Vital Sign Reading Time Taken Comments Blood Pressure 106/53 01/26/2024 10:38 AM CDT Pulse 76 01/26/2024 10:38 AM CDT Temperature 36.7 C (98.1 F) 01/26/2024 9:30 AM CDT Respiratory Rate 12 01/26/2024 10:38 AM CDT Oxygen Saturation 96% 01/26/2024 10:38 AM CDT Inhaled Oxygen Concentration - - Weight 157 kg (346 lb 12.5 oz) 10/04/2022 9:10 A M CDT Height 175.5 cm (5' 9.09) 10/04/2022 9:10 AM CD T Body Mass Index 51.07 10/04/2022 9:10 AM CDT Plan of Treatment Upcoming Encounters Date Type Department Care Team (Latest Contact Info) Description 08/21/2024 7:45 AM PROCUREMENT COORDINATOR Clinical Communication Virtual Review in [place], [place] [address] [place] [address] 08/22/2024 8:00 AM PROCUREMENT COORDINATOR Virtual Visit Division of Pain Medicine in [address] [phone] Amelia Salgado APRN, TINSEL MACHINE OPERATOR, D.N.P. [address] [place] [phone] Medical Devices Implanted Type Area Canal Structure Operator Device Identifier Shelf Expiration Date Model / Serial / Lot Knee Implant-11/21/19 24 Implanted:05/0 01/2024 (Quantity not on file) Knee Implant Left: Knee Procedures Procedure Name Priority Date/Time Associated Diagnosis Comments PM TRIGGER POINT INJECTION Routine 07/02/2024 12:45 PM PROCUREMENT COORDINATOR Myofascial Pain Syndrome Myalgia Pain Sacroiliac GLUCOSE POCT, B Routine 01/26/2024 9:32 AM CDT from Last 3 Months or Most Recently Relevant to Health Maintenance Results * PM Trigger point injection (07/02/2024 12:45 PM PROCUREMENT COORDINATOR) Narrative MMODAL - 07/02/2024 12:45 PM PROCUREMENT COORDINATOR Sintia Ovalle P.A.-C., M.S. 07/02/2024 1:27 PM PM Trigger point injection (left lumbar, right lumbar, right PSIS and left PSIS) Performed by: Sintia Ovalle P.A.-C., M.S. Authorized by: Amelia Salgado APRN, BHANU, D.N.P. PROCEDURE SUMMARY Pre procedure pain score: 3/10 Soft tissue site: left lumbar, right lumbar, right PSIS and left PSIS Lumbar: L4-5 level Lumbar position: prone PSIS: PSIS position: prone Needle size: 25 G Needle length: 2 in INJECTED MEDICATIONS The injected medication(s) listed was divided equally between the identified injection location(s) 5 mL BUPivacaine 0.5 % (5 mg/mL); 4 mg lidocaine 10 mg/mL (1 %) 40 mg [...] applicable for the procedure. Skin preparation: chlorhexidine SEDATION / ANESTHESIA Anesthesia method: none POST-PROCEDURE DETAILS Complications: no apparent complications us BHANU Paul APRN, D.N.P. PROCEDURE/MIN OR SURGICAL ORDERABLES Final Result Performing Organization Address City/[facility]/ZIP Co de Phone Number MMODAL NA * (ABNORMAL) Glucose, POCT (01/26/2024 9:32 AM CDT) Glucose, POCT, B 152(H) 70 - 140 mg/dL 01/26/2024 9:49 AM CDT PCMO Site Capillary 01/26/2024 9:49 AM CDT PCMO Blood 01/26/2024 9:32 AM CDT 01/26/2024 9:49 AM CDT us Unknown Provider LAB POCT ORDERABLES-MANUAL Kimberlyn l Result Performing Organization Address City/[facility]/ZIP Co de Phone Number POC [facility] [address] [place] [address], [place] PCMO [facility] [place] POC [address] [place] [address] from Last 3 Months or Most Recently Relevant to Health Maintenance Insurance [place] MED[place] MEDICARE Advance Directives For more information, please contact: [phone] Documents on File Type Date Recorded Patient Warehouse Assistant Expl anation Advance Directives 10/05/2022 8:01 PM Arlen Resendezrianna Rincon HCPOA/ADVOCATE/AGENT/R EPRESENTATIVE/SURROGAT E Healthcare Agents on File Name Relationship Healthcare Agent Relationship Communication Arlen [place] Mother Health Care Agent [email or web address] Dudley [place] Brother First Alternate Health Care Agent Elena Rincon Friend Second Alternate Health Care Agent Care Teams Durability Engineer Relationship Specialty Start Date End Date Elsewhere, Pcp PCP - General Internal Medicine 09/30/22
--- OUTSIDE RECORDS SUMMARY | 2024-08-10 10:37 | XMS_ITS | Clinical Summary ---
Author Organization [facility] Address [address] [place] [address] Care Team Providers Care Lasting Machine Operator Hand Method Name Role Phone Elsewhere, Pcp Primary Care Provider Unavailabl e Source Comments Patient records contain information from all sites at [facility]. For routine questions regarding patient records, call [phone] during business hours, M-F 8:00 AM - 5:00 PM Central Time. Record requests for emergency care only can be directed to [phone] at any time.[facility] Allergies Active Allergy Reactions Criticality Noted Date [...] (ZOFRAN) 4 mg tablet as needed. 12/08/19 21 Active UltiCare Pen Needle 31 gauge x [...] mg intramuscularly as needed for pain. 11/13/19 Active Fiasp FlexTouch U-100 Insulin 100 unit/mL (3 mL) pen 12/28/19 24 Active metoclopramide (Reglan) 10 mg tablet Take 10 mg by mouth every 6 (six) hours as needed. 02/13/20 24 Active lisinopriL 5 mg tablet Take 1 tablet by mouth daily. 06/06/20 24 Active loratadine-pseudo ephedrine (Claritin-D 24-hour) 10-240 mg per 24 hr tablet Take 1 tablet by mouth daily. 06/12/20 24 Active insulin aspart U-100 (NovoLOG FlexPen) 100 unit/mL (3 mL) pen daily. 05/25/20 24 Active albuterol 90 mcg/actuation inhaler Inhale 1-2 puffs every 4 (four) hours as needed. 04/08/20 24 Active metoprolol succinate (Toprol XL) 25 mg 24 hr tablet Take 1 capsule by mouth daily. Active pregabalin (Lyrica) 300 mg capsule Take 1 capsule (300 mg total) by mouth 2 (two) times a day. 180 capsule 3 07/02/20 24 Active tiZANidine (Zanaflex) 4 mg tablet Take 1 tablet (4 mg total) by mouth at bedtime. 90 tablet 3 07/02/20 24 Active Hospital, Clinic, or Other Facility Administered [...] Clinical Communication Division of Pain Medicine in [place], [place] [address] [place] [address] Sintia Ovalle P.A.-Alvaro., M.S. [facility] 07/02/2024 12:45 PM PAYLOADER MACHINE OPERATOR Procedure visit Division of Pain Medicine in [place], [place] [address] [place] [address] Sintia Ovalle P.Soha.-C., M.S. Pain Low Back Unspecified (Primary Dx); Myofascial Pain Syndrome; Myalgia; Pain Sacroiliac from Last 3 Months Family History Medical [...] cancer Paternal Grandfather Kathrine Stroke Paternal Grandfather Kathirne Thyroid disease Paternal Grandmother Gloria Depression Sister Maddie Diabetes Sister Maddie Hyperlipidemia Sister Maddie Hypertension Sister Maddie Migraines Sister Maddie Obesity Sister Maddie Seizures Sister Maddie Stroke Sister Maddie Relation Name Status Comments Father Tesfaye Father's Brother Tam Father's Sister 1 Sonali Father's Sister 2 Juan Maternal Grandfather Abdelrahman Mother Arlen Mother's Sister Pippa Paternal Grandfather Kathrine Paternal Grandmother Gloria Perkins Social History Tobacco Use Types Packs/Day Years Used Date Smoking Tobacco: Never Passive Smoke Exposure: Current Smokeless Tobacco: Never Tobacco Cessation:Counseling Given: Not Answered Alcohol Use Standard Drinks/Week Comments Not Currently 0 (1 standard drink = 0.6 oz pur e alcohol) Maybe 1-2 drinks a year [facility] [employer] Answer Date Recorded In the past 12 months has e [employer], gas, oil, or water [employer] threatened to shut off services in your [...] often do you attend chur ch or christianity services? Never 09/27/2022 Do you belong to any clubs o r organizations such as yazdanism groups, unions, fraternal or athletic groups, or [...] and heating? Not hard at all 01/05/2023 [facility] Occupat ional Health - Occupational Stress [...] your living situation today? I have a [facility] place to live 12/17/2023 Education Answer Date Recorded What is the highest level of school you have completed or the highest degree you have received? Associate degree: academic program 09/27/2022 Comments No Sex and Gender Information Value Date Recorded Sex Assigned at Female 09/27/2022 11:01 PM CDT Legal Sex Female 11:29 PM PAYLOADER MACHINE OPERATOR Gender Identity Female 09/27/2022 11:01 PM CDT [...] (Latest Contact Info) Description 08/21/2024 7:45 AM PAYLOADER MACHINE OPERATOR Clinical Communication Virtual Review in [place], [place] [address] [place] [id number] 08/22/2024 8:00 AM PAYLOADER MACHINE OPERATOR Virtual Visit Division of Pain Medicine in [place], [place] [address] [place] [phone] Amelia Salgado APRN, BOLT MAN, D.N.P. [address] [place] [phone] Health Maintenance Due Date Last Done Comments CT Colonography 1971 Cologuard 1971 Colonoscopy 1971 Colorectal Cancer Screening 1971 FIT 1971 HIV Screening 1971 Hepatitis C Screening 1971 Office Visit for Blood Pressure Check / Re-check 01/04/2023 10/04/2022 Thyroid Stimulating Hormone (TSH) test for thyroid function 02/15/2024 02/14/2023, 09/23/2022, 12/17/2021, Additional history exists Influenza Vaccine (#1) 2024 Creatinine Level (Kidney Function Test) 06/12/2024 06/12/2023, 03/07/2023, 12/01/2022, Additional history exists Sodium Level 06/12/2024 06/12/2023, 02/15, 12/01/2022, Additional history exists Depression Screening (Annual PHQ-2) 07/17/2024 Potassium Level 01/16/2025 01/17/2024, 05/0 07/2023, 07/03/2023, Additional history exists Mammogram 07/08/2025 07/08/2024, 06/17, 07/07/2023, Additional history exists Pneumococcal vaccine (50+ years) (3 of 3 - PCV20 or PCV21) 09/08/2026 09/08/2021, 01/31/2020 Fasting Glucose for Diabetes Screening 01/25/2027 01/26/2024, 06/12/2023, 03/07/2023, Additional history exists DTaP,Tdap,and Td Vaccines (4 - Td or Tdap) 06/12/2027 06/12/2017, 12/08/2005, 12/08/2005, Additional history exists Lipid (Cholesterol) Screening 09/02/2027 09/02/2022, 02/25/2022, 01/22/2021, Additional history exists Hepatitis B Vaccines Completed 09/24/1999, 05/03/1999, 03/10/1999 Zoster Vaccines Completed 07/30/2021, 05/21/2021 COVID-19 Vaccine Completed 03/17/2024, , 10/08/2021, Additional history exists IPV Vaccines Aged Out No longer eligi ble based on patient's age to complete this topic Medical Devices Implanted Type Area Quality Specialist Device Identifier Shelf Expiration Date Model / Serial / Lot Knee Implant-11/21/19 24 Implanted:05/0 01/2024 (Quantity not on file) Knee Implant Left: Knee Procedures Procedure Name Priority Date/Time Associated Diagnosis Comments PM TRIGGER POINT INJECTION Routine 07/02/2024 12:45 PM PAYLOADER MACHINE OPERATOR Myofascial Pain Syndrome Myalgia Pain Sacroiliac GLUCOSE POCT, B Routine 01/26/2024 9:32 AM CDT from Last 3 Months or Most Recently Relevant to Health Maintenance Results * PM Trigger point injection (07/02/2024 12:45 PM PAYLOADER MACHINE OPERATOR) Narrative MMODAL - 07/02/2024 12:45 PM PAYLOADER MACHINE OPERATOR Sintia Ovalle P.A.-C., M.S. 07/02/2024 1:27 PM PM Trigger point injection (left lumbar, right lumbar, right PSIS and left PSIS) Performed by: Sintia Ovalle P.A.-C., M.S. Authorized by: Amelia Salgado APRN, BOLT MAN, D.N.P. PROCEDURE SUMMARY Pre procedure pain score: [...] SURGICAL ORDERABLES Final Result Performing Organization Address City/[facility] Co de Phone Number MMODAL NA * (ABNORMAL) Glucose, POCT (01/26/2024 9:32 AM CDT) Glucose, POCT, B 152(H) 70 - 140 mg/dL 01/26/2024 9:49 AM CDT PCMO Site Capillary 01/26/2024 9:49 AM CDT [facility] Blood 01/26/2024 9:32 AM CDT 01/26/2024 9:49 AM CDT us Unknown Provider LAB POCT ORDERABLES-MANUAL Kimberlyn l Result POC [facility] [address] [place] [id number] PCMO [facility] POC [address] [place] [address] from Last 3 Months or Most Recently Relevant to Health Maintenance [place] [address] MEDICARE Advance Directives For more information, please contact: [phone] Documents on File Type Date Recorded Patient Financial Services Agent Expl anation Advance Directives 10/05/2022 8:01 PM Arlen Rincon HCPOA/ADVOCATE/AGENT/R EPRESENTATIVE/SURROGAT E Healthcare Agents on File Name Relationship Healthcare Agent Relationship Communication Arlen Madrid Mother Health Care Agent [email or web address] Dudley Madrid Brother First Alternate Health Care Agent Elena Rincon Friend Second Alternate Health Care Agent Care Teams Lasting Machine Operator Hand Method Relationship Specialty Start Date End Date Elsewhere, Pcp PCP - General Internal Medicine 3/17/23
--- OUTSIDE RECORDS SUMMARY | 2024-08-10 10:37 | XMS_ITS ---
Author Organization [facility] Address [address] [place] [address] Care Team Providers Care Cellophane Bag Machine Operator Name Role Phone Unavailable Unavailable Unavailable Surgery Details Not on file Complications Check Surgery Details section. Procedure Estimated Blood Loss Check Surgery Details section. Procedure Findings Check Surgery Details section. Procedure Specimens Taken Check Surgery Details section.
--- OUTSIDE RECORDS SUMMARY | 2024-08-10 10:38 | XMS_ITS | Encounter Summary ---
Author Organization [facility] Address [address] [place] [address] Care Team Providers Care Improvement Auditor Name Role Phone Elsewhere, Pcp Primary Care Provider Unavailabl e Reason for Referral * Physical Therapy (Routine) - Authorized Specialty Diagnoses / Procedures Referred By Edgar aaron Referred To Contact Diagnoses Myofascial Pain Syndrome Myalgia Pain Low Back Unspecified Sintia Ovalle P.A.-C., M.S. Phone: tel: fax: Referral ID Status Reason Start Date Expiration Date Visits Requested Visits Authorized [id number] Authorized Patient Preference 4 01/01/2026 99 99 MILL SUPERVISOR Reason for Visit * Outpatient (Routine) - Closed Specialty Diagnoses / Procedures Referred By Edgar aaron Referred To Contact Diagnoses Myofascial Pain Syndrome Myalgia Pain Sacroiliac Procedures PM Trigger point injection Amelia Salgado APRN, MAJOR GIFTS MANAGER, D.N.P. [address] [place] [address] Phone: tel: fax: [facility] Referral ID Status Reason Start Date Expiration Date Visits Re quested Visits Authorized [id number] Closed 03/12/2024 03/12/2025 1 1 Encounter Details Date Type Department Care Team (Latest Contact Info) Description 07/02/2024 12:45 PM FEED MILL SUPERVISOR Procedure visit Division of Pain Medicine in [place], [place] [address] [place] [address] Sintia Ovalle P.A.-C., M.S. [address] [place] [address] Pain Low Back Unspecified (Primary Dx); Myofascial Pain Syndrome; Myalgia; Pain Sacroiliac Social History Tobacco Use Types Packs/Day Years Used Date Smoking Tobacco: Never Passive Smoke Exposure: Current Smokeless Tobacco: Never Alcohol Use Standard Drinks/Week Comments Not Currently 0 (1 standard drink = 0.6 oz pur e alcohol) Maybe 1-2 drinks [address] [facility] [email or web address] Answer Date Recorded In the past 12 months has [employer], gas, oil, or water [employer] threatened to shut off services in your [...] often do you attend chur ch or caodaism services? Never 09/27/2022 Do you [...] and heating? Not hard at all 01/05/2023 [facility] Occupat ional Health - Occupational [...] your living situation today? I have a [facility] place to live 12/17/2023 Education Answer Date Recorded What is the highest level of school you have completed or the highest degree you have received? Associate degree: academic program 09/27/2022 Comments No Sex and Gender Information Value Date Recorded Sex Assigned at Female 09/27/2022 11:01 PM CDT Legal Sex Female 11:29 PM FEED MILL SUPERVISOR Gender Identity Female 09/27/2022 11:01 PM CDT Sexual Orientation Straight 09/27/2022 11 :01 PM CDT documented as of this encounter Progress Notes * Sintia Ovalle P.A.-C., M.S. - 07/02/2024 12:45 PM CST SUBJECTIVE CHIEF COMPLAINT / REASON FOR VISIT Laura Madrid presents today in follow-up of 1. Pain Low Back Unspecified 2. Myofascial Pain Syndrome 3. Myalgia 4. Pain Sacroiliac HISTORY OF PRESENT ILLNESS Laura is a 54 y.o. female with a past medical history of post COVID syndrome, lumbosacral radiculopathy, peripheral neuropathy, low back pain, diabetes mellitus, migraine headaches, obesity, and bilateral total knee arthroplasties. She returns to the pain Clinic today accompanied by her mother for consideration of myofascial trigger point injections. Miss Madrid reports her back is the best it has ever been with a combination of myofascial triggerpoint injections and lumbar facet RFA performed every 6 months. She is recovering from bilateral knee replacements and just finished postoperative physical therapy for that. She has been more active of late, shopping or walking within [employer] or [employer] and also just joined [employer]. Medications: Tizanidine 4 mg q.h.s. Pregabalin 300 mg twice daily Procedures: Bilateral L4-5 and PSIS trigger point injections 03/12/2024 Bilateral L4-5, L5-S1 lumbar facet RFA 01/26/2024 Other Therapies: Physical Therapy She denies recent fevers, chills, infections, or antibiotics. She does have an allergy listed to iodine but has had no allergies to corticosteroid or local anesthetics. Pain score today: 3/10. Laura's history was reviewed including allergies, current medications, and problem list. OBJECTIVE PHYSICAL EXAM GENERAL: Patient is seated in exam room chair in no acute distress. Greater than ideal body mass index. MENTAL STATUS: Oriented to person, place and time. Recent and remote memory are grossly intact. EYES: Pupils are 3 mm and symmetric. Conjunctiva, eyelids and irises are within normal limits. LUNGS: Normal respiratory efforts. SKIN: Inspection of posterior trunk is without erythema, edema, lesions or rashes. MUSCULOSKELETAL: Palpation: She is tender to palpation at the bilateral PSIS and has a trigger point on either side of approximately the L4-5 level. GAIT: Nonantalgic. ASSESSMENT / PLAN #1 Myofascial Pain Syndrome #2 Myalgia #3 Pain Sacroiliac #4 Pain Low Back Unspecified 1. Conservative: External physical therapy prescription provided for ongoing care of the low back and for consideration of dry needling. 2. Medications: Refills provided for both her tizanidine 4 mg and pregabalin 300 mg twice daily. 3. Injections: She is appropriate for repeat bilateral PSIS trigger point injection and L4-5 paraspinal trigger point injection. Please see the associated procedure note from today's date for furtherdetails. Informed consent was signed in the office. She had no contraindications to proceeding. 4. Advanced interventional: She will contact us when she is ready to have her bilateral L4-5, L5-[id number] facet RFA procedure repeated. Followup: She will followup with the pain clinic as needed. Total time: I personally spent a total of 30 minutes in direct discussion, counseling, and/or coordination of care with the patient/caregiver as described above along with vtr-kias-nj-face time performing a review of the record. PATIENT EDUCATION Ready to learn, no apparent learning barriers were identified: learning preferences included listening. Explained diagnosis and treatment plan; patient expressed understanding of the content. MILL SUPERVISOR documented in this encounter Procedure Notes * Sintia Ovalle P.A.-C., M.S. - 07/02/2024 12:45 PM CSTAssociated Order(s): PM Trigger point injection Pre-Procedure Diagnose(s): Myofascial Pain Syndrome; Myalgia; Pain Sacroiliac Post-Procedure Diagnose(s): Myofascial Pain Syndrome; Myalgia; Pain Sacroiliac PM Trigger point injection (left lumbar, right lumbar, right PSIS and left PSIS) Performed by: Sintia Ovalle P.A.-C., M.S. Authorized by: Amelia Salgado APRN, CNS, D.N.P. [...] none POST-PROCEDURE DETAILS Complications: no apparent complications MILL SUPERVISOR documented in this encounter Plan of Treatment Upcoming Encounters Date Type Department Care Team (Latest Contact Info) Description 08/21/2024 7:45 AM FEED MILL SUPERVISOR Clinical Communication Virtual Review in [address] [phone] 08/22/2024 8:00 AM FEED MILL SUPERVISOR Virtual Visit Division of Pain Medicine in [address] [address] Amelia Salgado APRN, MAJOR GIFTS MANAGER, D.N.P. [address] [place] [phone] documented as of this encounter Procedures Procedure Name Priority Date/Time Associated Diagnosis Comments PM TRIGGER POINT INJECTION Routine 07/02/2024 12:45 PM FEED MILL SUPERVISOR Myofascial Pain Syndrome Myalgia Pain Sacroiliac documented in this encounter Results * PM Trigger point injection (07/02/2024 12:45 PM FEED MILL SUPERVISOR) Narrative MMODAL - 07/02/2024 12:45 PM FEED MILL SUPERVISOR Sintia Ovalle P.A.-C., M.S. 07/02/2024 1:27 PM PM Trigger point injection (left lumbar, right lumbar, right PSIS and left PSIS) Performed by: Sintia Ovalle P.A.-C., M.S. Authorized by: Amelia Salgado APRN, CNS, D.N.P. [...] none POST-PROCEDURE DETAILS Complications: no apparent complications Amelia Salgado APRN, MAJOR GIFTS MANAGER, D.N.P. PROCEDURE/MIN OR SURGICAL ORDERABLES Final Result MMODAL NA documented in this encounter Visit Diagnoses Diagnosis Pain Low Back Unspecified- Primary Myofascial Pain Syndrome Myalgia Pain Sacroiliac documented in this encounter Administered Medications Inactive Administered Medications - up to 3 most recent administrations Medication Order MAR Action Action Date Dose Rate Site BUPivacaine 0.5 % (5 mg/mL) injection 5 mL (Marcaine) 5 mL, injection, One-Time Injection, Starting on Mon07/02/24 at 1245, For 1 doseIndications:Myofascial Pain Syndrome,Myalgia,Pain Sacroiliac Given 07/02/2024 12:45 PM FEED MILL SUPERVISOR 5 mL lidocaine 10 mg/mL (1 %) injection 4 mg (Xylocaine) 4 mg, injection, One-Time Injection, Starting on Mon07/02/24 at 1245, For 1 doseIndications:Myofascial Pain Syndrome,Myalgia,Pain Sacroiliac Given 07/02/2024 12:45 PM FEED MILL SUPERVISOR 4 mg triamcinolone acetonide injection 40 mg (Kenalog-40) 40 mg, injection, One-Time Injection, Starting on Mon07/02/24 at 1245, For 1 doseIndications:Myofascial Pain Syndrome,Myalgia,Pain Sacroiliac Given 07/02/2024 12:45 PM FEED MILL SUPERVISOR 40 mg documented in this encounter Care Teams Improvement Auditor Relationship Specialty Start Date End Date Elsewhere, Pcp PCP - General Internal Medicine 09/30/22 documented as of this encounter
--- OUTSIDE RECORDS SUMMARY | 2024-08-10 10:38 | XMS_ITS | Clinical Summary ---
Author Organization [facility] Address [place], [place] [address] Care Team Providers Care Focus Puller Name Role Phone Kar Soto MD Unavailable Olvin Vega MD Unavailable Bhaskar Page MD Unavailable [phone] Major Chandler MBBS Unavailable [phone] Isak Nielson MD Unavailable [phone] Jillian Daley NP Unavailable [phone] Ania Avalos PsyD, LP Unavailable [phone] Na Estes MD Primary Care Provider [phone] Allergies Active Allergy Reactions Criticality Noted Date [...] carpeting..no other exposure issues. Levofloxacin Diarrhea 12/25/2006 Dulaglutide Nausea Only 07/23/2024 Medications esomeprazole (NEXIUM) 40 mg capsule Take 1 capsule by mouth 2 times daily. 60 capsule 12 08/11/19 11:37 AM WINDER OPERATOR Active acetaminophen (TYLENOL EXTRA STRGTH) 500 mg tablet Take 2 tablets by mouth every 6 hours if needed (pain, headache). Active blood-glucose meterIndications: Uncontrolled type 2 diabetes mellitus, without long-term current use of insulin Dispense meter, test strips, lancets covered by pt ins. E11.9 NIDDM type II - Test 4 times/day. 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 200 Each 11 Active PreviDent 5000 Sensitive 1.1-5 % pste USE DOCTOR INSTRUCTED Active dihydroergotamine (D.H.E.45) 1 mg/mL injection Inject 0.5-1 mg intramuscular. 022 Active scopolamine 1mg over 3 days (TRANSDERM SCOP) patchIndications: H/O motion sickness Apply 1 Patch on dry, clean, hairless skin every 72 hours if needed for Nausea/Vomiting . 4 Patch Active ondansetron (ZOFRAN) 4 mg tabletIndications :Nausea Take 1 Tablet (4 mg) by mouth every 8 hours if needed for Nausea/Vomiting . 60 Tablet 023 Active cyclobenzaprine (FLEXERIL) 10 mg tabletIndications :Spasm of muscle of lower back Take 1 Tablet (10 mg) by mouth 3 times daily if needed for Muscle Spasm. 60 Tablet 2 023 Active nystatin powder (MYCOSTATIN) powderIndications :Intertriginous candidiasis Apply 1 Strip topically to affected area(s) three times daily. 60 g 5 023 Active polyethylene glycol 3350 (MIRALAX ORAL) Take by mouth. Active ketorolac tromethamine (TORADOL IM) Inject intramuscular each time if needed (Migraine). Active pregabalin (LYRICA) 300 mg capsule Take 300 mg by mouth two times daily. 023 Active pen needle, diabetic (UltiCare Pen Needle) 31 gauge x 5/16Indications: Uncontrolled type 2 diabetes mellitus with hyperglycemia (HC) For administering insulin at home. 450 Each 3 024 Active pramipexole (MIRAPEX) 0.25 mg tabletIndications :Restless legs Take 3-4 Tablets (0.75-1 mg) by mouth at bedtime. 360 Tablet 1 024 Active cyproheptadine (PERIACTIN) 4 mg tabletIndications :Nausea Take 1 Tablet (4 mg) by mouth one time if needed (nausaea) for up to 1 dose. 30 Tablet 024 Active Senna 8.6 mg tablet Take 8.6 mg by mouth once daily if needed for Constipation. 024 Active tiZANidine (ZANAFLEX) 4 mg tablet Take 4 mg by mouth at bedtime. 024 Active metoprolol succinate (Toprol XL) 25 mg Sustained-Release tabletIndications :Hypertension,Par oxysmal SVT (supraventricular tachycardia) (HC) Take 1 Tablet (25 mg) by mouth once daily. 90 Tablet 3 024 Active levothyroxine (SYNTHROID) 200 mcg tabletIndications :Postoperative hypothyroidism Take 1 Tablet (200 mcg) by mouth before breakfast. 90 Tablet 2 024 Active atorvastatin (LIPITOR) 40 mg tabletIndications :Mixed hyperlipidemia,Ty pe 2 diabetes mellitus with other specified complication, with long-term current use of insulin (HC) Take 1 Tablet (40 mg) by mouth at bedtime. 90 Tablet 3 024 Active albuterol HFA (PRO-AIR; VENTOLIN; PROVENTIL) 90 mcg/actuation inhalerIndication s:Acute bronchitis, unspecified organism Inhale 1-2 Puffs by mouth every 4 hours if needed for Shortness Of Breath or Wheezing. 1 Each 024 Active insulin aspart, U-100, (NOVOLOG FLEXPEN) 100 unit/mL (3 mL) penIndications:Ty pe 2 diabetes mellitus with other specified complication, with long-term current use of insulin (HC) Subcutaneous injection: up to 40 Units three times daily with meals 9 mL 3 024 Active Lantus Solostar U-100 Insulin 100 unit/mL (3 mL) penIndications:Ty pe 2 diabetes mellitus with other specified complication, with long-term current use of insulin (HC) Inject 80 units subcutaneous two times daily. Product desired: LANTUS SOLOSTAR 150 mL 1 024 Active lisinopriL (PRINIVIL; ZESTRIL) 5 mg tabletIndications :Hypertension TAKE ONE TABLET BY MOUTH ONE TIME DAILY 90 Tablet 024 Active Loratadine-D 10-240 mg 24hr tabletIndications :Post-nasal drainage TAKE ONE TABLET BY MOUTH ONE TIME DAILY 90 Tablet 024 Active citalopram (CELEXA) 20 mg tabletIndications :Anxiety Take 1.5 Tablets (30 mg) by mouth every morning. 135 Tablet 1 025 Active blood sugar diagnostic (Contour Next Test Strips) stripIndications: Uncontrolled type 2 diabetes mellitus with hyperglycemia (HC) Test 4 times per day 300 Each 3 025 Active dulaglutide (Trulicity) 4.5 mg/0.5 mL subcutaneous penIndications:Ty pe 2 diabetes mellitus with other specified complication, with long-term current use of insulin (HC) Inject 4.5 mg subcutaneous once weekly. 7 mL 2 023 2024 Discontinued(* Med complete/Regim en complete/Level of care change) citalopram (CELEXA) 20 mg tabletIndications :Anxiety Take 1.5 Tablets (30 mg) by mouth every morning. 135 Tablet 1 024 2024 Discontinued blood sugar diagnostic (Contour Next Test Strips) stripIndications: Uncontrolled type 2 diabetes mellitus with hyperglycemia (HC) Test 3 times per day 300 Each 3 024 2024 Discontinued(R eorder (E-cancel not sent)) Active Problems Patient Care [...] Overview (03/14/2014): Ran calculations Mar 14.;2014: With age43,wbpt786,hdl51, jpt089, treated hypertension, +dm. 10year ATHEROSCLEROTIC CARDIOVASCULAR DISEASE [...] 01/22/01: Surgery: subtotal thyroidectomy Pathology (reviewed at [place] - see notes from [place] that are currently in the system as [...] follow up with Dr. Tam Daley with [facility] for several years. This included a [...] cm, previously 1.0 x 0.7 x 0.6 cm. No cervical lymphadenopathy. CONCLUSION:1. No significant change since 07/14/2014. Tg = [...] Encounters Date Type Department Care Team Description 08/09/2024 9:00 AM WINDER OPERATOR Procedure Only [facility] [place] [address] [place] [address] Yo Owens L Ac Acupuncture 08/09/2024 Travel 08/08/2024 Telephone [facility] [address] [place] [address] Na Estes MD 08/07/2024 Travel 08/05/2024 8:30 AM WINDER OPERATOR Telemedicine [address] [address] Ania Avalos PsyD, LP Individual Therapy; Telehealth (/) 08/05/2024 Travel 08/01/2024 11:30 AM WINDER OPERATOR Telemedicine [address] [place] [address] Ania Avalos PsyD, LP Individual Therapy; Telehealth 08/01/2024 Travel 07/31/2024 Telephone [facility] [address] [place] [address] Na Estes MD 07/25/2024 8:30 AM WINDER OPERATOR Procedure Only [facility] [place] [address] [place] [address] Yo Owens L Ac Acupuncture 07/25/2024 Travel 07/23/2024 9:00 AM WINDER OPERATOR [place] [facility] [address] [place] [address] Na Estes MD Diabetes (follow up/) 07/23/2024 Travel 07/20/2024 Travel 07/16/2024 Refill [facility] [address] [place] [address] aN Estes MD Refill Request (Citalopram) 07/15/2024 8:30 AM WINDER OPERATOR Telemedicine [address] [facility] [address] [place] [address] Robbie, Ania A, PsyD, LP Individual Therapy; Telehealth 07/14/2024 Travel 07/08/2024 1:10 PM WINDER OPERATOR Ancillary Procedure [facility] [address] [place] [address] 07/08/2024 Travel 07/05/2024 11:30 AM WINDER OPERATOR Procedure Only [facility] [address] [place] [address] Yo Owens L Ac Acupuncture 07/05/2024 Travel 07/03/2024 Travel 07/01/2024 8:30 AM WINDER OPERATOR Telemedicine [address] [place] [address] Robbie, Ania A, PsyD, LP Individual Therapy; Telehealth 06/30/2024 Travel 06/20/2024 12:00 PM WINDER OPERATOR [place] [facility] [id number] [place] [address] Na Estes MD Medication Management (Trulicity medication/) 06/20/2024 Travel 06/17/2024 Travel 06/15/2024 Travel 06/12/2024 8:00 AM WINDER OPERATOR Procedure Only [facility] [place] [address] [place] [address] Yo Owens L Ac Acupuncture 06/12/2024 Refill [facility] [address] [place] [address] Na Estes MD Refill Request (Loratadine-d) 06/11/2024 9:05 AM WINDER OPERATOR Office Visit [facility] [place] [address] [place] [address] Majo Martinez PA Laceration 06/11/2024 Travel 06/10/2024 8:30 AM WINDER OPERATOR Telemedicine [facility] [address] [facility] [address] [place] [address] Ania Avalos PsyD, LP Individual Therapy; Telehealth 06/07/2024 Travel 06/03/2024 8:30 AM WINDER OPERATOR Procedure Only [facility] [address] [place] [address] Yo Owens L Ac Acupuncture 06/03/2024 Refill [facility] [address] [place] [address] Na Estes MD Refill Request (Lisinopril) 06/02/2024 Travel 06/01/2024 Travel 05/30/2024 1:50 PM WINDER OPERATOR Anesthesia Event [facility] [address] [place] [address] Marin Castro MD Jasienski, Jean Jacobson, TRUCK CHAUFFEUR 05/30/2024 1:30 PM WINDER OPERATOR - 05/30/2024 2:00 PM WINDER OPERATOR Surgery [facility] [address] [place] [address] Tani Peralta MD EGD WITH BIOPSY AND DILATION TO 20MM 05/30/2024 12:25 PM WINDER OPERATOR - 05/30/2024 4:09 PM WINDER OPERATOR Hospital Encounter [facility] [address] [place] [address] Tani Peralta MD Discharge Disposition: Home Self Care 05/30/2024 Travel 05/27/2024 8:00 AM WINDER OPERATOR Procedure Only [facility] [place] [address] [place] [address] Yo Owens L Ac Acupuncture 05/27/2024 Travel 05/23/2024 Telephone [facility] [id number] [place] [address] Na Estes MD Prior Authorization (insulin aspart, U-100, (NOVOLOG FLEXPEN) 100 unit/mL (3 mL) pen APPROVED 05/09/24 UNTIL FURTHER NOTICE) 05/23/2024 Telephone [facility] [address] [place] [address] Na Estes MD Prior Authorization (Lantus Solostar U-100 Insulin 100 unit/mL (3 mL) pen APPEAL APPROVED 05/23/24-until further notice) 05/23/2024 Travel 05/22/2024 8:30 AM WINDER OPERATOR Telemedicine [place] [id number] [facility] [address] [facility] [address] [place] [address] Ania Avalos, [place], LP Trmt Plan; Individual Therapy; Telehealth 05/22/2024 Travel 05/21/2024 9:00 AM WINDER OPERATOR Procedure Only [facility] [place] [address] [place] [address] Yo Owens L Ac Acupuncture 05/20/2024 12:00 PM WINDER OPERATOR Orders Only [facility] [address] [place] [address] Lab 05/20/2024 Travel 05/17/2024 7:30 AM CDT Preop Visit [facility] [id number] [place] [address] Na Estes MD Pre-Op Exam (Pre Op for Upper Endoscopy on May 30) 05/16/2024 Travel 05/15/2024 Travel from Last 3 Months Immunizations Name Administration Dates Next Due COVID-19 VACCINE COMIRNATY ([employer] 30MCG/0.3ML) 12YO+ PFS 03/17/2024 COVID-19 vaccine ([employer] 30mcg/0.3mL) 12YO+ ABRAM-SUCROSE PF, MDV 10/08/2021 COVID-19 vaccine ([employer] 30mcg/0.3mL) PF, MDV 10/08/2021,05/04/2021,10/30/2020,2020 DT (Age [...] Answer Date Recorded PHQ-2 TOTAL SCORE 1 08/05/2024 Social Connections Answer Date Recorded Do you often feel lonely or isolated from those around you? 0 06/11/2024 Financial Resource Strain Answer Date R ecorded Difficulty of Paying Living Expenses 3 06/11/2024 Difficulty of Paying Living Expenses Not on file 06/11/2024 Food Insecurity Answer Date Recorded Do you worry your food will run out before you are able to buy more? 1 06/11/2024 Transportation Needs Answer Date Record ed Does lack of transportation keep you from medica l appointments? 1 06/11/2024 Does lack of transportation keep you from work, meetings or getting things that you need? 1 06/11/2024 Housing Stability Answer Date Recorded What is your housing situation today? 1 06/11/2024 Utilities Answer Date Recorded Do you have trouble paying f or utilities (for example, heat, electricity, water, phone)? 1 06/11/2024 Comments No Sex and Gender Information Value Date Recorded Sex Assigned at Female 07/05/2021 12:17 AM WINDER OPERATOR Legal Sex Female 6:18 AM WINDER OPERATOR Gender Identity Female 07/05/2021 12:17 AM WINDER OPERATOR Sexual Orientation Straight 07/05/2021 12 :17 AM WINDER OPERATOR Obstetrics History Para Term AB IAB SAB Ectopic Multiple Livin g Live Births 0 0 0 0 0 0 0 0 0 0 Last Filed Vital Signs Vital Sign Reading Time Taken Comments Blood Pressure 133/71 07/23/2024 9:51 AM WINDER OPERATOR Pulse 62 07/23/2024 9:51 AM WINDER OPERATOR Temperature 36.5 C (97.7 F) 06/11/2024 9:07 AM WINDER OPERATOR Respiratory Rate 12 05/30/2024 3:30 PM WINDER OPERATOR Oxygen Saturation 99% 07/23/2024 9:07 AM WINDER OPERATOR Inhaled Oxygen Concentration - - Weight 187.4 kg (413 lb 3.2 oz) 07/23/2024 9:07 AM WINDER OPERATOR Height 175.3 cm (5' 9) 07/23/2024 9:07 AM WINDER OPERATOR Body Mass Index 61.02 07/23/2024 9:07 AM WINDER OPERATOR Plan of Treatment Upcoming Encounters Date Type Department Care Team (Late st Contact Info) Description 08/26/2024 8:30 AM WINDER OPERATOR Telemedicine [facility] [address] [facility] [address] [place], [place] [id number] Ania Avalos PsyD, ROBINSON [address] [facility] [address] [place] [address] 09/06/2024 9:00 AM WINDER OPERATOR Procedure Only [facility] [place] [address] [place] [address] Yo Owens L Ac [address] [place] [address] 09/19/2024 8:30 AM WINDER OPERATOR Telemedicine [facility] [address] [address] Robbie Ania A, PsyD, LP [address] [facility] [address] [place] [address] 09/20/2024 9:00 AM WINDER OPERATOR Procedure Only [facility] [place] [address] [place] [address] Yo Owens L Ac [address] [place] [address] 10/04/2024 9:00 AM CDT Procedure Only [facility] [place] [address] [place] [address] Yo Owens L Ac [address] [facility] [address] 10/07/2024 8:30 AM CDT Telemedicine [place] [id number] [facility] [address] [address] Robbie Ania A, PsyD, LP [address] [facility] [address] [place] [address] 10/18/2024 9:00 AM CDT Procedure Only [facility] [address] [place] [address] Yo Owens L Ac [address] [place] [address] 10/28/2024 8:30 AM CDT Telemedicine [facility] [address] [facility] [address] [place] [address] Robbie, Ania A, PsyD, LP [address] [facility] [address] [place] [address] 11/01/2024 9:00 AM CDT Procedure Only [facility] [address] [place] [address] Yo Owens L Ac [address] [place] [address] 11/15/2024 9:00 AM CDT Procedure Only [facility] [place] [address] [place] [address] Yo Owens L Ac [address] [place] [address] 11/18/2024 8:30 AM CDT Telemedicine [facility] [address] [address] Robbie, Ania A, PsyD, LP [address] [address] 11/29/2024 8:00 AM CDT Procedure Only [facility] [address] [place] [address] Yo Owens L Ac [address] [place] [address] 12/06/2024 8:30 AM CDT Telemedicine [facility] [address] [facility] [address] [place] [address] Robbie, Ania A, PsyD, LP [address] [facility] [address] [place] [address] 12/13/2024 8:00 AM CDT Procedure Only [facility] [place] [address] [place] [address] Yo Owens L [address] [place] [address] 12/30/2024 8:30 AM CDT Telemedicine [facility] [address] [place] [address] Robbie, Ania A, PsyD, LP [address] [place], [place] [address] 01/20/2025 8:30 AM CDT Telemedicine [facility] [address] [place] [address] Robbie, Ania A, PsyD, LP [address] [place] [address] Health Maintenance Due Date Last Done Comments HIV for age 15-65 1986 Fecal testing sDNA-FIT (Lewis guard) for age 45-75 2016 Mammogram for age 45-75 07/08/2025 07/08/20 24, 07/07/2023, 06/17/2022, Additional history exists BMI (ht and wt on same day) for age 18+ 07/23/2025 07/23/2024, 06/20/2024, 05/17/2024, Additional history exists Depression screening for age 12+ 08/08/2025 08/08/2024, 08/05/2024, 08/01/2024, Additional history exists Pneumococcal series for age 50+ (3 of 3 - PCV20 or PCV21) 09/08/2026 09/08/2021, 01/31/2020 Tetanus booster 06/12/2027 06/12/2017, 11/15, 12/08/2005 Lipids for age 45-75 04/17/2029 04/17/2024, 09/02/2022, 02/25/2022, Additional history exists Hepatitis B series for Diabetes Completed 09/24/1999, 05/03/1999, 03/10/1999 Tdap Completed 06/12/2017, 12/08/2005 Zoster (shingles) series for age 50+ Completed 07/30/2021, 05/21/2021 Hepatitis C screening for ag e 18-79 Completed 02/25/2022 COVID-19 vaccine series Completed 03/17/20, 04/02/2022, 10/08/2021, Additional history exists Medical Devices Implanted Type Area Certified Technician Specialist Device Identifier Shelf Expiration Date Model / Serial / Lot Iud, Mirena - [id number] Implanted:Qty: 1 on 01/02/2015 by Mireya Avila MD at [facility] N/A: Uterus R-BACILIO 08/04/2017 [id number] Screw Foot 5x50mm Fixos Comp Implanted:Qty: 1 on 08/20/2018 by Jerod Rivera DPM at [facility] Left: Calcaneus Description:SCREW FOOT 5X50M M FIXOS COMP Procedures Procedure Name Priority Date/Time Associated Diagnosis Comments ACUPUNCTURE PLAN OF CARE Routine 025 9:00 AM WINDER OPERATOR Other low back pain Bilateral chronic knee pain Other chronic pain HEMOGLOBIN A1C Routine 07/23/2024 9:59 AM WINDER OPERATOR Type 2 diabetes mellitus with other specified complication, with long-term current use of insulin (HC) XR MAMMO BILAT SCREENING Routine 024 1:07 PM WINDER OPERATOR Visit for screening mammogram ACUPUNCTURE PLAN OF CARE Routine 024 7:51 AM WINDER OPERATOR Chronic pain of both knees Other low back pain Other chronic pain Chronic intractable headache, unspecified headache type Chronic migraine without aura without status migrainosus, not intractable PATH TISSUE EXAM Today 05/30/2024 2:00 PM WINDER OPERATOR ESOPHAGOGASTRODUODENOSCOPY WITH DILATION Elective 05/30/2024 1:45 PM WINDER OPERATOR See MD note Case Notes ENDO TEAM- will bring supplies and equipment for case.PATIENT IS DIABETIC AND TAKES TRULICITYLATEX ALLERGY GLUCOSE METER Timed 05/30/2024 1:17 PM WINDER OPERATOR ENDOSCOPY 05/30/2024 12:47 PM WINDER OPERATOR SCAN-CARDIAC STRIP 05/30/2024 12:00 AM WINDER OPERATOR ACUPUNCTURE PLAN OF CARE Routine 7:50 AM WINDER OPERATOR Chronic pain of both knees Other low back pain Other chronic pain Chronic intractable headache, unspecified headache type Chronic migraine without aura without status migrainosus, not intractable ACUPUNCTURE PLAN OF CARE Routine 8:56 AM WINDER OPERATOR Chronic pain of both knees Other low back pain Other chronic pain Chronic intractable headache, unspecified headache type Chronic migraine without aura without status migrainosus, not intractable POTASSIUM Routine 05/20/2024 12:01 PM WINDER OPERATOR Preoperative cardiovascular examination Dysphagia, unspecified type LIPID PANEL Routine 04/17/2024 10:14 AM CDT Mixed hyperlipidemia ANTI HCV Routine 02/25/2022 12:11 PM CDT Need for hepatitis C screening test from Last 3 Months or Most Recently Relevant to Health Maintenance Results * (ABNORMAL) HEMOGLOBIN A1C (07/23/2024 9:59 AM WINDER OPERATOR) HEMOGLOBIN A1C 9.1(H) <5.7 % of total Hgb 07/24/2024 5:19 AM WINDER OPERATOR [facility] Comment: For someone without known diabetes, a hemoglobin A1c value of 6.5% or greater indicates that they may have diabetes and this should be confirmed with a follow-up test. For someone with known diabetes, a value <7% indicates that their diabetes is well controlled and a value greater than or equal to 7% indicates suboptimal control. A1c targets should be individualized based on duration of diabetes, age, comorbid conditions, and other considerations. Currently, no consensus exists regarding use of hemoglobin A1c for diagnosis of diabetes for children. Blood BLOOD SPECIMEN / Unknown Non-Lab Venipuncture / Unknown 07/23/2024 9:59 AM WINDER OPERATOR 07/23/2024 9:59 AM WINDER OPERATOR Na Estes MD CHEMISTRY Final Resu lt [facility] [address] [place] [address], [place] [phone] * XR MAMMO BILAT SCREENING (07/08/2024 1:07 PM WINDER OPERATOR) Anatomical Region Laterality Modality BREASTS, Breast Left, Breast Right Bilateral Mammography Impressions 07/11/2024 10:46 AM WINDER OPERATOR There is no radiographic evidence for malignancy. Recommend annual mammograms. MAMMOGRAM ASSESSMENT: ACR 1 Negative PATIENTS: You will also receive a letter with your examination results in an easy to read format. If you have questions about your results, please contact your referring provider. Narrative 07/11/2024 10:46 AM WINDER OPERATOR For Patients: As a result of the Century Cures Act, medical imaging exams and procedure reports are released immediately into your electronic medical record. You may view this report before your referring provider. If you have questions, please contact your health care provider. XR MAMMO BILAT SCREENING [[id number]] CLINICAL HISTORY: This is an asymptomatic 54 y.o. patient. INDICATION FOR EXAM: Mammogram Screening. TECHNIQUE: CC & MLO views were obtained. This study was evaluated with the assistance of Computer-Aided Detection. COMPARISON FILM: Yes 07/07/23 [facility] 06/17/22 [employer] FINDINGS: There are scattered areas of fibroglandular density. There are no dominant masses, suspicious micro calcifications or areas of architectural distortion. Na Estes MD MAMMO Final Resu lt * PATH TISSUE EXAM (05/30/2024 2:00 PM WINDER OPERATOR) Case Report Pathology Report Case: [id number] Authorizing Provider: Tani Peralta MD Collected: 05/30/2024 1400 Ordering Location: [facility] Received: 05/30/2024 9037 [facility] Pathologist: Binu Cerda MD Specimen: Gastric Biopsy 05/31/2024 3:08 PM [facility] Final Diagnosis A) STOMACH, BIOPSY: 1. Non-erosive reactive gastropathy (see comment) a. Sampling: Antral and body mucosae b. Distribution: Antral mucosa 2. Negative for inflammation, atrophy and Helicobacter 05/31/2024 3:08 PM [facility] Comment A) The likely etiology is an ongoing non-inflammatory type mucosal injury due to a chemical type of injury; this may be due to ingestion of non-steroidal anti-inflammator y drugs, aspirin (via prostaglandin-me diated injury), excess alcohol, corticosteroids, or bile/alkaline reflux, the latter usually in the setting of a gastroenteric anastomosis. 05/31/2024 3:08 PM [facility] Clinical Information Ms. Madrid is a 54 y.o. with dyspepsia and dysphagia who undergoes upper GI endoscopy. 05/31/2024 3:08 PM [facility] Gross Description A) Received in formalin are 5 padilla mucosal fragments averaging 3 mm in greatest dimension, which are entirely submitted in one cassette. It is labeled with the patient's name and designated gastric biopsy. Suyapa Perez 05/30/2024 3:22 PM 05/31/2024 3:08 PM [facility] Microscopic Description The final diagnosis is based on microscopic examination of appropriate sections of all specimens. 05/31/2024 3:08 PM [facility] [facility] Additional Information Interpreted at [facility] - [address], [place] [address] 05/31/2024 3:08 PM [facility] Biopsy GASTRIC BIOPSY SPECIMEN / Unknown 05/30/2024 2:00 PM WINDER OPERATOR 05/30/2024 2:28 PM WINDER OPERATOR us Tani Peralta MD PATHOLOGY/CYTOLOGY Kimberlyn lou Result [facility] [address] [place] [address], [place] * (ABNORMAL) GLUCOSE METER (05/30/2024 1:17 PM WINDER OPERATOR) GLUCOSE METER 135(H) 65 - 100 mg/dL 05/30/2024 1:23 PM WINDER OPERATOR [facility] Blood BLOOD SPECIMEN / Unknown 05/30/2024 1:17 PM WINDER OPERATOR 05/30/2024 1:23 PM WINDER OPERATOR Tani Peralta MD CHEMISTRY Final R esult [facility] [address] [place] [address], [place] * ENDOSCOPY (05/30/2024 12:47 PM WINDER OPERATOR) 05/30/2024 12:4 7 PM WINDER OPERATOR Narrative Transcriptions Tani Peralta MD - 05/30/2024 2:13 PM [facility] Patient Name: Laura Madrid Procedure Date: 05/30/2024 Gender: Female Date of : 1970 Admit Type: Ambulatory Procedure: Upper GI endoscopy Proceduralist: Tani Peralta MD - [facility] Referring MD: Tani Peralta MD Indications/Pre-Op Diagnosis: Dyspepsia, Dysphagia Medications: Monitored Anesthesia Care Procedure Description: Risk of bleeding, infection, perforation, need for surgery and alternatives discussed. The endoscope [id number]-[id number] was introduced through the mouth, and advanced to the second part of duodenum. The upper GI endoscopy was accomplished with ease. The patient tolerated the procedure well. Complications: No immediate complications. Estimated Blood Loss & Specimen: Estimated blood loss was minimal. Specimen collected: Yes and sent to Laboratory Findings: The examined esophagus was normal. A TTS dilator was passed throughthe scope. Dilation with an 18-19-20 mm balloon dilator was performed to20 mm. The entire examined stomach was normal. Biopsies were taken with acold forceps for histology. The examined duodenum was normal. Impressions/Post-Op Diagnosis: - Normal esophagus. Dilated. - Normal stomach. Biopsied. - Normal examined duodenum. Recommendation: - Discharge patient to home (ambulatory). - Resume previous diet. - Continue present medications. - Await pathology results. - Repeat upper endoscopy PRN. Tani Peralta MD 05/30/2024 2:13:15 PM This report has been signed electronically. Note Initiated On: 05/30/2024 12:47 PM Tani Peralta MD PROCEDURE ORD Final R esult * SCAN-CARDIAC STRIP (05/30/2024 12:00 AM WINDER OPERATOR) Narrative 05/30/2024 12:00 AM WINDER OPERATOR Ordered by an unspecified provider. Other Clinical Staff OTHER Final Resul t * POTASSIUM (05/20/2024 12:01 PM WINDER OPERATOR) POTASSIUM 3.9 3.5 - 5.3 mmol/L 05/21/2024 2:09 PM WINDER OPERATOR [facility] Blood BLOOD SPECIMEN / Unknown Non-Lab Venipuncture / Unknown 05/20/2024 12:01 PM WINDER OPERATOR 05/20/2024 12:01 PM WINDER OPERATOR Na Estes MD CHEMISTRY Final Resu lt [facility] [address] [place] [address], * LIPID PANEL (04/17/2024 10:14 AM CDT) CHOLESTEROL, TOTAL 136 <200 mg/dL 04/18/2024 8:06 AM CDT [facility] TRIGLYCERIDES 123 <150 mg/dL 04/18/2024 8:06 AM CDT [facility] HDL CHOLESTEROL 53 > OR = 50 mg/dL 04/18/2024 8:06 AM CDT [facility] NON HDL CHOLESTEROL 83 <130 mg/dL (calc) 04/18/2024 8:06 AM CDT [facility] Comment: For patients with diabetes plus 1 major ASCVD risk factor, treating to a non-HDL-C goal of <100 mg/dL (LDL-C of <70 mg/dL) is considered a therapeutic option. CHOL/HDLC RATIO 2.6 <5.0 (calc) 04/18/2024 8:06 AM CDT [facility] LDL-CHOLESTEROL 63 mg/dL (calc) 04/18/2024 8:06 AM CDT [facility] Comment: Reference range: <100 Desirable range <100 mg/dL for primary prevention; <70 mg/dL for patients with CHD or diabetic patients with > or = 2 CHD risk factors. LDL-C is now calculated using the Thony-Armani calculation, which is a validated novel method providing better accuracy than the Friedewald equation in the estimation of LDL-C. Thony SS et al. SAJAN. 2013;310(19): 1762-4040 (http://education.Barspace.Signicat/faq/TWF608) Blood BLOOD SPECIMEN / Unknown Non-Lab Venipuncture / Unknown 04/17/2024 10:14 AM CDT 04/17/2024 10:14 AM CDT Na Estes MD CHEMISTRY Final Resu lt Performing Organization Address City/[facility]/ZIP Co de Phone Number [facility] [address] [place] [address], * ANTI HCV (02/25/2022 12:11 PM CDT) HEPATITIS C ANTIBODY Non-React josefina Non-React josefina 02/25/2022 11:20 PM CDT [facility] Comment:Antibodies to HCV no t detected; does not exclude the possibility of exposure to HCV. Blood BLOOD SPECIMEN / Unknown Venipuncture / Unknown 02/25/2022 12:11 PM CDT 02/25/2022 12:13 PM CDT us Kell GUERRERO SEND OUTS Final Result [facility] [address] [place] [address], [place] from Last 3 Months or Most Recently Relevant to Health Maintenance Insurance MEDICAID MEDICARE PB ONLY MEDICARE PART B HB ONLY MEDICARE PART A HB ONLY [facility] Advance Directives Documents on File Type Date Recorded Patient Metal Neutralizer Expl anation Healthcare Directive 09/10/2022 023 Healthcare Directive 02/06/2010 HEALTH DIRECTIVE Healthcare Directive 03/21/2007 * Full Code (Latest Code Status on File) Date Activated Date Inactivated Comments 05/30/2024 10:57 AM 05/30/2024 6:14 PM Question Answer Comments Code Status Discussion: Unable to Assess Preferences, Provider to review later * Full Code Date Activated Date Inactivated Comments 07/04/2023 6:13 [...] Comments 10/17/2019 4:27 PM 10/23/2019 4:39 PM Care Teams Focus Puller Relationship Specialty [place] [address] [place] [address] PCP - General Internal Medicine 06/12/23 Kar Soto MD Neurology 05/14/14 Olvin Vega MD [address] [facility] [address] [place] [address] Endocrinology 05/14/14 Bhaskar Page MD [address] [place] [address] [address] [place] [address] Gastroenterology 05/14/14 Major Chandler MBBS [address] [facility] [address] [place] [address] Consulting Physician Cardiovascular Disease 02/05/19 Isak Nielson MD [address] [place] [address] Consulting Physician Cardiology - Electrophysiology 04/22/19 Jillian Daley NP [address] [place] [address] Nurse Practitioner Cardiology - Electrophysiology 07/31/19 Ania Avalos PsyD, LP [address] [place] [address] Psychologist Psychology 10/03/19
--- OUTSIDE RECORDS SUMMARY | 2024-08-10 10:38 | XMS_ITS | Clinical Summary ---
[facility] Address [address] [place] [address] Care Team Providers Care Water Tester Name Role Phone Kell Pan PA-C Primary [...] for each transition of care or referral. [facility] Allergies Active Allergy Reactions Criticality Noted Date [...] Comments Blood Pressure 109/68 07/05/2022 11:20 AM [employer] Pulse 79 07/05/2022 11:20 AM [employer] Temperature - - Respiratory Rate 17 07/05/2022 11:20 AM [employer] Oxygen Saturation - - Inhaled Oxygen Concentration - - Weight 175.8 kg (387 lb 8 oz) 03/15/2021 9:53 AM CDT Height 175.3 cm (5' 9) 04/06/2020 12:27 PM CDT Body Mass Index 57.22 04/06/2020 12:27 PM CDT Plan of Treatment Upcoming Encounters Date Type Department Care Team (Late st Contact Info) Description 01/07/2025 11:15 AM CDT Appointment [facility] [address] [place], [place] [address] Mari Rosario, PAAnnmarieC [address] [place] [address] [phone] Health Maintenance Due Date Last Done Comments Cervical Cancer Screening Due 1970 Colon Cancer Screening Plan Due 1970 Diabetes: Creatinine 1970 Diabetes: Foot Exam 1970 Diabetes: Lipid Panel 1970 Diabetes: Urine Microalbumin 1970 Hep C Screening (Preventive Services) 1970 HIV Screening (Preventive Services) 1987 Adult Preventive Visit 1989 HepB (1) 1990 Mammogram 04/15/2021 04/15/2020 Diabetes: Eye Exam 02/23/2022 02/23/2021 Diabetes: HGBA1C 12/11/2023 06/12/2023, , 03/07/2023, Additional history exists COVID-19 [...] age to complete this topic Care Teams Water Tester Relationship Specialty Start Date End Date Kell Pan PA-C PCP - General Physician Manager Spanish 02/06/20
--- OUTSIDE RECORDS SUMMARY | 2024-08-10 10:38 | XMS_ITS | Encounter Summary ---
Author Organization [facility] Address [address] [place] [address] Care Team Providers Care Correctional Facility Nurse Name Role Phone Elsewhere, Pcp Primary Care Provider Unavailabl e Reason for Visit * Reason Onset Date Comments Plan of Care 07/19/2024 [facility] Encounter Details Date Type Department Care Team (Latest Contact Info) Description 07/19/2024 Clinical Communication Division of Pain Medicine in [place], [place] [address] [place] [address] Sintia Ovalle P.A.-C., M.S. [address] [place] [address] Plan of Care ([facility]) Social History Tobacco Use Types Packs/Day Years Used Date Smoking Tobacco: Never Passive Smoke Exposure: Current Smokeless Tobacco: Never Alcohol Use Standard Drinks/Week Comments Not Currently 0 (1 standard drink = 0.6 oz pur e alcohol) Maybe 1-[address] [facility] Utilities Answer Date Recorded In the [...] week 09/27/2022 How often do you attend [facility] or muslim services? Never 09/27/2022 Do you belong to [...] and heating? Not hard at all 01/05/2023 [facility] of Occupat ional Health - Occupational Stress [...] your living situation today? I have a [facility] place to live 12/17/2023 Education Answer Date Recorded What is the highest level of school you have completed or the highest degree you have received? Associate degree: academic program 09/27/2022 Comments No Sex and Gender Information Value Date Recorded Sex Assigned at Female 09/27/2022 11:01 PM CDT Legal Sex Female 11:29 PM SERVICE TECH Gender Identity Female 09/27/2022 11:01 PM CDT Sexual Orientation Straight 09/27/2022 11 :01 PM CDT documented as of this encounter Plan of Treatment Upcoming Encounters Date Type Department Care Team (Latest Contact Info) Description 08/21/2024 7:45 AM SERVICE TECH Clinical Communication Virtual Review in [place] [address] [place] [address] 08/22/2024 8:00 AM SERVICE TECH Virtual Visit Division of Pain Medicine in [place], [place] [address] [place] [address] Amelia Salgado APRN, [employer], D.N.P. [address] [place] [address] documented as of this encounter Visit Diagnoses Not on filedocumented in this encounter Care Teams Correctional Facility Nurse Relationship Specialty Start Date End Date Elsewhere, Pcp PCP - General Internal Medicine 09/30/22 documented as of this encounter
--- OUTSIDE RECORDS SUMMARY | 2024-08-10 10:38 | XMS_ITS | Continuity of Care Document ---
Author Organization [facility] Address [address] [address] [place] [address] Phone Care Team Providers Care Paper Cap Machine Operator Name Role Phone Tani Peralta MD Unavailable Unavailable Allergies, Adverse Reactions, Alerts Substance Reaction Status Criticality erythromycin base Diarrhea Active No Informa tion [...] release take 1 capsule by ORAL route twice daily - Active sig updated* lisinopril 5 mg tablet take 1 tablet by oral route every day 5 MG - Active Trulicity 4.5 mg/0.5 mL subcutaneous pen injector inject (4.5MG) by subcutaneous route every week 4.5 MG - Active Fiasp FlexTouch U-100 Insulin 100 unit/mL (3 mL) subcutaneous pen inject by subcutaneous route per prescriber's instructions. Insulin dosing requires individualization . 0.00 - Active Miralax 17 gram oral powder packet as needed - Active dihydroergotamine 1 mg/mL injection solution infuse 1 milliliter by intravenous route at the start of a headache and may repeat in 1 hour if needed, not toexceed 2mg in 24hrs as needed 1 MG - Active ketorolac 30 mg/mL (1 mL) injection solution inject 1 milliliter by intramuscular route every 6 hours as needed for up to 5 days total use as needed 30 MG - Active cyclobenzaprine 10 mg tablet take 1 tablet by oral route 3 times every day as needed at bedtime 10 MG - Active nystatin 100,000 unit/gram topical powder apply by topical route 2 times every day to the affected area(s) as needed 0.00 - Active senna 8.6 mg capsule take 2 Capsule by oral route every day at bedtime 2 Capsule - Active scopolamine 1 mg over 3 days transdermal patch apply 1 patch by transdermal route to the hairless area behind 1 ear at least 4 hr before effect is required; reapply every 3 days as needed as needed 1.00 patch - Active metoprolol succinate ER 50 mg tablet,extended release 24 hr take 1 tablet by oral route every day 50 MG - Active ondansetron HCl 4 mg tablet take 1 by Oral route every 4 hours as needed for nausea or vomiting - Active Lantus Solostar U-100 Insulin 100 unit/mL (3 mL) subcutaneous pen take as directed - Active HUMALOG (unknown strength) inject by subcutaneous route once insulin pump Not Available - Active Celexa 40 mg tablet take 1 tablet by oral route every day 40 MG - Active Synthroid 200 mcg tablet take 1 tablet by oral route every day 200 MCG - Active atorvastatin 40 mg tablet take 1 tablet by oral route every day 40 MG - Active Claritin-D 24 Hour 10 mg-240 mg tablet,extended release Take 1-2 tablets by oral route every day - Active Mirapex 0.25 mg tablet take 2-3 tablet by oral route 2-3 hours before bedtime - Active Lyrica 225 mg capsule take 1 capsule by oral route 2 times every day 225 MG - Active tizanidine 4 mg capsule take 1 capsule by oral route every day as needed 4 MG - Active Tylenol Extra Strength 500 mg tablet take 2 - 3 tablet by ORAL route every 4 - 6 hours as needed 1000 MG - Active esomeprazole magnesium 40 mg capsule,delayed release take 1 capsule by ORAL route every 2 days 40 MG - No Longer Active Procedures Procedure Date Ugi Endo; W/bx 1/mx Ugi Endo; W/balloon Dilat Esop 24 Offic/outpt E&m Estab Mod-hi 2 24 Esophagoscopy; W/balloon Dilat 23 Established Level 4 [...] Estab Mod-hi 2 15 Offic/outpt E&m Estab Mod-hi 2 14 Ugi Endo; W/bx 1/mx Level [...] Date Provider Providers Copied on Encounter [facility], [address] [address], [place], [place], [id number], [place] tel:[phone] [facility] No Information 4 Fabian Freire. [address] [facility], [address], [id number], [place]. tel:[phone] [facility], [address] [address], [place], [place], [id number], [place] tel:[phone] [facility] No Information 4 Fabian Freire. [address] [place] [address], [address], [id number], [place]. tel:[phone] Referring Provider: Tani Peralta MD, [address], [address]. tel:[phone] Offic/outpt E&m Estab Mod-hi 2 [facility], [address] [address], [place], [id number], [place] tel:[phone] [facility] GI Symptoms or Concerns (chief complaint) Previous History Review (chief complaint) Dysphagia, unspecified typeNausea and vomiting in adultConstipa tion, chronic 4 Fabian Freire. [facility] [address], [id number], [place]. tel:[phone] Referring Provider: Referral Self, USE FOR SELF REFERRALS. [facility], [address] [address], [place], [id number], [place] tel:[phone] [facility] No Information 4 Lionel Stubbs. [address] [place] [address], [id number], [place]. tel:[phone] [facility], [address] [address], [place], [id number], [place] tel:[phone] [facility] No Information 3 Bettye Hanson. [facility] [address], [id number], [place]. tel:[phone] Referring Provider: Patricia Salinas, [address] [place], [address]. tel:[phone] [facility], [address] [address], [place], [id number], [place] tel:[phone] [facility] Dysphagia, unspecified type 3 Fabian Freire. [address] [place] [address], [id number], [place]. tel:[phone] Established Level 4 [facility], [address] [address], [place], [id number], [place] tel:[phone] [facility] GI Symptoms or Concerns (chief complaint) Gastro-esopha geal reflux disease without esophagitisDy sphagia, unspecified typeChronic idiopathic constipation 3 Fabian Freire. [facility] [facility], [address], [id number], [place]. tel:[phone] Clarissa Garcia MD. tel:[phone] Provider: Referral Self, USE FOR SELF REFERRALS. [facility], [address] [address], [place], [id number], [place] tel:[phone] [facility] No Information 3 Fabian Freire. [facility] [facility], [address], [id number], [place]. tel:[phone] [facility], [address] [address], [place], [address], [place] tel:[phone] [facility] No Information 2 Fabian Freire. [address] [facility], [address], [id number], [place]. tel:[phone] Referring Provider: [place], [address] [place] [address], [address]. tel:[phone] [facility], [address] [address], [place], [address], [place] tel:[phone] [facility] No Information 2 Loinel Stubbs. [address] [facility], [facility] [address], [place], [id number], [place]. [phone] [facility], [address] [address], [place], [address], [place] tel:[phone] [facility] Dysphagia, unspecified type 2 Fabian Freire. [address] [facility], [address], [id number], [place]. tel:[phone] Established Level 4 [facility], [address] [address], [place], [address], [place] tel:[phone] [facility] GI Symptoms or Concerns (chief complaint) Chest pain, unspecified typeDysphagia , unspecified typeGastro-es ophageal reflux disease without esophagitis 2 Fabian CINTRON Tani. [address] [facility], [place] [address], [place], [place], [address], [place]. tel:[phone] Clarissa Garcia MD. tel:[phone] Provider: Referral Self, USE FOR SELF REFERRALS. [facility], [address] [address], [place], [id number], [place] tel:[phone] [facility] Constipation, chronic 2 Chase Walker. [address] [facility], [address], [id number], [place]. tel:[phone] Clarissa Garcia MD. tel:[phone] Offic/outpt E&m Estab Mod-hi 2 [facility], [address] [address], [place], [id number], [place] tel:[phone] [facility] GI Symptoms or Concerns (chief complaint) Right sided abdominal painGastropar esisNauseaCon stipation, chronic Oct- 2 Chase Walker. [address] [facility], [place] [address], [place], [place], [id number], [place]. tel:[phone] Clarissa Garcia MD. tel:[phone] Provider: Referral Self, USE FOR SELF REFERRALS. [facility], [address] [address], [place], [id number], [place] tel:[phone] [facility] No Information Sep- 2 Chase Walker. [address] [facility], [place] [address], [place], [place], [id number], [place]. tel:[phone] Offic/outpt E&m Estab Low-mod [facility], [address] [address], [place], [id number], [place] tel:[phone] [facility] GI Symptoms or Concerns (chief complaint) Gastro-esopha geal reflux disease without esophagitisNa useaMixed irritable bowel syndromeFatty (change of) liver, not elsewhere classifiedPos t-COVID syndromeColon cancer screening 1 No Information Clarissa Garcia MD. tel:[phone] ng Provider: Referral Self, USE FOR SELF REFERRALS. [facility], [address] [address], [place], [id number], [place] tel:[phone] [facility] No Information 1 No Information [facility], [address] [address], [place], [id number], [place] tel:[phone] [facility] Rectal bleeding 1 No Information [facility], [address] [address], [place], [id number], [place] tel:[phone] [facility] Blood per rectum 1 No Information Offic/outpt E&m Estab Mod-hi 2 [facility], [address] [address], [place], [id number], [place] tel:[phone] [facility] GI Symptoms or Concerns (chief complaint) Right lower quadrant abdominal painGastro-es ophageal reflux disease without esophagitisIr ritable bowel syndrome without diarrheaPost- COVID syndromeObesi ty, unspecified 1 No Information Clarissa Garcia MD. tel:[phone] agustín Provider: Referral Self, USE FOR SELF REFERRALS. [facility], [address] [address], [place], [id number], [place] tel:[phone] [facility] No Information 1 Domingo Zamudio. [address] [place] [address], [id number], [place]. tel:[phone] Referring Provider: Robb Fitzgerald, [address] [place] [address], [address]. [phone] [facility], [address] [address], [place], [id number], [place] tel:[phone] [facility] No Information 1 No Information [facility], [address] [address], [place], [id number], [place] tel:[phone] [facility] Dysphagia, unspecified type 1 No Information Established Level 3 [facility], [address] [address], [place], [id number], [place] tel:[phone] [facility] Comment (chief complaint) Gastro-esopha geal reflux disease without esophagitisNo n-intractable vomiting with nausea, unspecified vomiting typeIrritable bowel syndrome without diarrheaPost- COVID syndromeFatty liver 1 No Information Clarissa Garcia MD. tel:[phone] ng Provider: Referral Self, USE FOR SELF REFERRALS. Established Level 4 or 25-39 min [facility], [address] [address], [place], [id number], [place] tel:[phone] [facility] GI Symptoms or Concerns (chief complaint) Gastro-esopha geal reflux disease without esophagitisNo n-intractable vomiting with nausea, unspecified vomiting typeFatty (change of) liver, not elsewhere classifiedEde ma, unspecified type 0 No Information Clarissa Garcia MD. tel:[phone] ng Provider: Referral Self, USE FOR SELF REFERRALS. [facility], [address] [address], [place], [id number], [place] tel:[phone] [facility] No Information 0 No Information Clarissa Garcia MD. tel:[phone] [facility], [address] [address], [place], [id number], [place] tel:[phone] [facility] No Information 0 No Information [facility], [address] [address], [place], [id number], [place] tel:[phone] [facility] No Information 0 No Information [facility], [address] [address], [place], [id number], [place] tel:[phone] [facility] Non-intractab le vomiting with nausea, unspecified vomiting type 0 No Information [facility], [address] [address], [place], [id number], [place] tel:[phone] [facility] Non-intractab le vomiting with nausea, unspecified vomiting type 0 No Information Offic/outpt E&m Estab Mod-hi 2 [facility], [address] [address], [place], [id number], [place] tel:[phone] [facility] GI Symptoms or Concerns (chief complaint) Gastro-esopha geal reflux disease without esophagitisIr ritable bowel syndrome without diarrheaFatty liver 9 No Information Clarissa Garcia MD. tel:[phone] ng Provider: Referral Self, USE FOR SELF REFERRALS. [facility], [address] [address], [place], [id number], [place] tel:[phone] [facility] No Information 9 No Information Offic/outpt E&m Estab Mod-hi 2 [facility], [address] [address], [place], [id number], [place] tel:[phone] [facility] GI Symptoms or Concerns (chief complaint) Chest pain, unspecified typeGastro-es ophageal reflux disease without esophagitisIr ritable bowel syndrome without diarrhea 8 No Information Clarissa Garcia MD. tel:[phone] ng Provider: Fabi GUERRERO, [address] [place] [address], [place], [address]. tel:[phone] [facility], [address] [address], [place], [id number], [place] tel:[phone] [facility] Chest pain, unspecified type Mar- 8 No Information Offic/outpt E&m Estab Mod-hi 2 [facility], [address] [address], [place], [place], [id number], [place] tel:[phone] [facility] GI Symptoms or Concerns (chief complaint) Gastro-esopha geal reflux disease without esophagitisFa tty liverDietary counseling and surveillance 8 No Information Clarissa Garcia MD. tel:[phone] ng Provider: Fabi GUERRERO, [address] [place] [address], [address]. tel:[phone] Offic/outpt E&m Estab Mod-hi 2 [facility], [address] [address], [place], [place], [id number], [place] tel:[phone] [facility] GI Symptoms or Concerns (chief complaint) Gastro-esopha geal reflux disease without esophagitisFa tty liverDietary counseling and surveillance 7 No Information Clarissa Garcia MD. tel:[phone] ng Provider: Fabi GUERRERO, [address] [place] [address], [address]. tel:[phone] Offic/outpt E&m Estab Mod-hi 2 [facility], [address] [address], [place], [place], [id number], [place] tel:[phone] [facility] GI Symptoms or Concerns (chief complaint) Gastro-esopha geal reflux disease without esophagitisIr ritable bowel syndrome without diarrheaFatty liver Aug- 7 No Information Clarissa Garcia MD. tel:[phone] ng Provider: Fabi GUERRERO, [address] [place] [address], [address]. tel:[phone] Offic/outpt E&m Estab Mod-hi 2 [facility], [address] [address], [place], [place], [id number], [place] tel:[phone] [facility] GI Symptoms or Concerns (chief complaint) Gastro-esopha geal reflux disease without esophagitisIr ritable bowel syndrome without diarrhea 6 No Information Clarissa Garcia MD. tel:[phone] ng Provider: Fabi GUERRERO, [address] [place] [address], [place], [address]. tel:[phone] Offic/outpt E&m Estab Mod-hi 2 [facility], [address] [address], [place], [id number], [place] tel:[phone] [facility] GI Symptoms or Concerns (chief complaint) Gastroesophag eal RefluxNon-alc oholic Fatty LiverObesityO besity, unspecifiedGa stro-esophage al reflux disease without esophagitisOt her specified diseases of liver Mar- 5 No Information Clarissa Garcia MD. tel:[phone] ng Provider: Fabi GUERRERO, [address] [place] [address], [place], [address]. tel:[phone] Offic/outpt E&m Estab Mod-hi 2 [facility], [address] [address], [place], [id number], [place] tel:[phone] [facility] GI Symptoms or Concerns (chief complaint) Gastroesophag eal RefluxGastrop aresisDietary Surveil/couns el 4 No Information Clarissa Garcia MD. tel:[phone] ng Provider: Fabi GUERRERO, [address] [place] [address], [place], [address]. tel:[phone] [facility], [address] [address], [place], [id number], [place] tel:[phone] [facility] Gastritis W/o BleedGastroes ophageal Reflux Dec- 4 No Information Clarissa Garcia MD. tel:[phone] [facility], [address] [address], [place], [id number], [place] tel:[phone] [facility] Gastritis W/o BleedGastroes ophageal RefluxGastrit is W/o BleedGastroes ophageal Reflux Apr-3 0- 4 No Information Referring Provider: Referral Self, USE FOR SELF REFERRALS. Offic/outpt E&m Estab Mod-hi 2 [facility], [address] [address], [place], [id number], [place] tel:[phone] [facility] Gastroesophag eal RefluxGastrop aresis Sep- 4 No Information Referring Provider: Referral Self, USE FOR SELF REFERRALS. Offic/outpt E&m Estab Mod-hi 2 [facility], [address] [address], [place], [id number], [place] tel:[phone] [facility] GERD (chief complaint) Nausea & vomiting (chief complaint) Gastroesophag eal RefluxGastrop aresis Sep- 3 No Information Referring Provider: Clarissa Torres, [address] [place], [address]. tel:[phone] Offic/outpt E&m Estab Mod-hi 2 [facility], [address] [address], [place], [id number], [place] tel:[phone] [facility] GERD (chief complaint) Gastropare sis (chief complaint) Gastroesophag eal RefluxGastrop aresis Oct- 2- 3 No Information Referring Provider: Clarissa Torres, [address] [place], [address]. tel:[phone] [facility], [address] [address], [place], [id number], [place] tel:[phone] [facility] Gastroesophag eal RefluxGastroe sophageal RefluxGastrit is W/o BleedPolyp-in sary/rect/stom -unc BehGastroesop hageal RefluxGastric Polyp-benignG astritis W/o Bleed Jun-0 2 No Information Referring Provider: Clarissa Torres, [address] [place], [address]. tel:[phone] Offic/outpt E&m Estab Mod-hi 2 [facility], [address] [address], [place], [id number], [place] tel:[phone] [facility] Nausea & vomiting (chief complaint) Bloating (chief complaint) Gas (chief complaint) Epigastric PainNausea With VomitingNon-a lcoholic Fatty Liver 2 No Information Referring Provider: Clarissa Torres, [address] [place], [address]. tel:[phone] [facility], [address] [address], [place], [id number], [place] tel:[phone] [facility] Abd Pain Generalized 2 No Information Referring Provider: Clarissa Torres, [address] [place], [address]. tel:[phone] [place] [address] [facility], [address] [address], [place], [id number], [place] tel:[phone] [facility] Gastroesophag eal RefluxHiatal HerniaPolyp-i ntes/rect/sto m-unc BehGastroesop hageal RefluxHiatal HerniaGastrod uodenal Dis NosGastric Polyp-benign 1 No Information Referring Provider: Clarissa Torres, [address], [place], [address]. tel:[phone] Offic/outpt E&m New Mod-hi [facility], [address] [address], [place], [id number], [place] tel:[phone] [facility] Abdominal pain (chief complaint) Belching (chief complaint) Nausea (chief complaint) Heartburn (chief complaint) Regurgitat ion (chief complaint) Gastroesophag eal RefluxEpigast merrick Pain 1 No Information Referring Provider: Referral Self, USE FOR SELF REFERRALS. Offic/outpt E&m Estab Low-mod [facility], [address] [address], [place], [id number], [place] tel:[phone] [facility] Gastroesophag eal RefluxNausea With Vomiting 6 No Information [facility] [address] [address], [place], [id number], [place] tel:[phone] Rl [facility] Gastroesophag eal Reflux 6 Tonya John. [address] [facility], [facility] [address], [place], [place], [id number], [place]. [phone] Family History Family Member Type Diagnosis Age [...] e, mRNA, spike protein, LNP, preservative free, eliane-sucrose, 30 mcg/0.3 mL dose administered Note: [facility] bi-direct ional interface [...] bi-direct ional interface ; Source: Other Registry Engerix-B administered Note: [facility] bi-d irectional interface ; Source: Other Registry Engerix-B administered Note: [facility] bi-d irectional interface ; Source: Other Registry Engerix-B administered Note: [facility] bi-d irectional interface ; Source: Other Registry Payers Payer name Insurance type Covered democrat ID Sean farrell(s) Medicare NGS MB [id number] [place] Medical Assistance [id number] Social History Type Description Quantity Date Captured Comments Alcohol Use Details Unknown Caffeine Use Details Unknown Tobacco Use Status No Information Smoking Status No Information Sex Female Chief Complaint And Reason For Visit No [...] 6 Months Appointment date/timeframe: 6 Months ordered History Of Present Illness Encounter Date Complaint History Of Prese nt Illness GI Symptoms or Concerns Previous History Review Laura is a 54-year-old female with a history of long COVID, [...] this has been a significant improvement for her. Since starting on Trulicity she has had some increase in her intermittent nausea vomiting and occasional heartburn, I suspect this is the cause, we will plan to increase her Nexium to twice daily.She also has some chronic constipation. She is [...] we will re-evaluate this. Otherwise, doing well. Again, since starting Trulicity she has had some increased constipation. She has been taking senna and MiraLAX on an as needed basis. After having her recent bilateral total knee repairs she did take senna 2 pills daily and noted that her bowel habits were much better. We did discuss resuming this as well. She is ambulating on a regular basis after hernia repair and her goal is to continue to build on this and improve her diabetes control and weight loss. GI Symptoms or Concerns Laura is a [...] The lower esophageal ring was dilated to 51-Algerian diameter with resolution of dysphagia.Chronic nausea has [...] and fundic gland polyps. Esophageal dilatation to 51-Algerian diameter was undertaken. Biopsies of the esophagus [...] microvascular angina, mixed irritable bowel syndrome, and kotj-[id number]-[id number] syndrome.She also has a prior history of [...] is on esomeprazole 40 mg daily and tztw-ukt-caknvse Zegerid. She occasionally takes esomeprazole twice daily. [...] Information Instructions Date Instruction Additional Infor chasity gastroparesis folder Related to Nausea and vomiting in adult constipation cleanse instruction s Related to Constipation, [...]
--- OUTSIDE RECORDS SUMMARY | 2024-08-10 10:38 | XMS_ITS | Patient Health Record ---
Author Organization [facility] Address [address] [place] [address] [address] [place] [address] Care Team Providers Care Landscape Supervisor Name Role Phone Gita Marie Primary Care Provider Unavaileva RosseFabrizio Unavailable [phone] Raymond BERNAL CUSTOMER SECURITY CLERK, Mandi Unavailable Unavaila ble Allergies Allergen (clinical [...] Once a day at bedtime Active Nystatin 967321 UNIT/GM 1 application Externally Twice a day [...] W/U Status Risk Notes Problem Chronic pain (20929991) Other chronic pain (G89.29) Active confirmed Problem Lumbosacral spondylosis without myelopathy (64861580) Spondylosis without myelopathy or radiculopathy, lumbosacral region (M47.817) Active confirmed Problem Lumbosacral radiculopathy (3466112) Radiculopathy, lumbosacral region (M54.17) Active confirmed Problem Low back pain (322420656) Low back pain, unspecified (M54.50) Active confirmed Plan Of Treatment No Information Insurance Providers Payer Name Payer Address Payer Phone Subscriber Number Group Number Insured Name Patient Relationship to Insured Coverage Start Date Coverage End Date [facility] [place] Blue Plus PMAP [address] [address] [place] [address] [id number] [facility] Laura Madrid Self - patient is the insured [facility] [address] [address] [place], [place] [id number] Laura Madrid Self - patient is the [...]
[2024-08-10 10:42] VITALS: BP 136/69; PULSE 78; RESP 18; TEMP 36.2; O2SAT 99; BMI 60.5
--- NOTE | 2024-08-10 11:08 | ED_ITS ---
HPI - Nausea/Vomiting/Diarrhea General Chief complaint: Nausea/Vomiting Stated complaint: Diahrrea Time Seen by Provider: 08/10/24 10:57 History of Present Illness HPI Narrative: This 54-year-old female comes in by ambulance because of persistent nausea, vomiting, and diarrhea that began about 6 hours prior to arrival. She states that she would have sudden spasm and could not make it to the toilet on time when diarrhea or occurred. She is reporting some lightheadedness. She arrives here with normal vital signs. Related Data Home Medications ?Medication ?Instructions ?Recorded ?Confirmed atorvastatin 40 mg tablet 40 mg PO HS 07/31/23 08/10/24 citalopram 20 mg tablet 30 mg PO DAILY 07/31/23 08/10/24 dihydroergotamine 1 mg/mL 0.5 - 1 mg IM DAILY PRN 07/31/23 08/10/24 injection solution esomeprazole magnesium 40 mg 40 mg PO DAILY 07/31/23 08/10/24 capsule,delayed release insulin glargine 100 unit/mL (3 80 unit subcut BID 07/31/23 08/10/24 mL) subcutaneous pen (Lantus Solostar U-100 Insulin) levothyroxine 200 mcg tablet 200 mcg PO QAM 07/31/23 08/10/24 lisinopril 5 mg tablet 5 mg PO DAILY 07/31/23 08/10/24 loratadine-pseudoephedrine ER 10 1 tab PO DAILY 07/31/23 08/10/24 mg-240 mg tablet,extended [id number] (Loratadine-D) metoprolol succinate 25 mg 25 mg PO DAILY 07/31/23 08/10/24 tablet,extended release 24 hr nystatin 100,000 unit/gram topical 1 applic topical TID PRN 07/31/23 08/10/24 powder pramipexole 0.25 mg tablet 0.75 - 1 mg PO HS 07/31/23 08/10/24 pregabalin 300 mg capsule 300 mg PO BID 07/31/23 08/10/24 tizanidine 4 mg tablet 4 mg PO HS 07/31/23 08/10/24 blood sugar diagnostic (Contour #10 ea 11/13/23 08/10/24 Next Test Strips) ketorolac 60 mg/2 mL intramuscular 30 - 60 mg IM DAILY PRN 11/13/23 08/10/24 solution ondansetron HCl 4 mg tablet 4 mg PO Q8H PRN nausea/vomiting 11/13/23 08/10/24 acetaminophen 500 mg tablet 1,000 mg PO Q6H PRN 11/20/23 07/31/24 cyproheptadine 4 mg tablet 4 mg PO QHS PRN 11/20/23 08/10/24 sodium fluoride 1.1 %-potassium 1 applic dental HS 11/21/23 08/10/24 nitrate 5 % dental paste (PreviDent 5000 Enamel Protect) insulin aspart 1 - 40 unit subcut TIDWM 01/30/24 08/10/24 (niacinamide)(U-100) 100 unit/mL(3 mL) subcutaneous pen (Fiasp FlexTouch U-100 Insulin) Allergies Allergy/AdvReac Type Severity Reaction Status Date / Time cefprozil (From Cefzil) Allergy Severe Hives Verified 08/10/24 10:51 isosorbide (From Imdur) Allergy Severe Rash Verified 08/10/24 10:51 latex Allergy Severe Hives Verified 08/10/24 10:51 levofloxacin Allergy Severe Diarrhea Verified 08/10/24 10:51 erythromycin base Allergy Verified 08/10/24 10:51 Iodinated Contrast Media Allergy Verified 08/10/24 10:51 iodine Allergy Verified 08/10/24 10:51 Review of Systems Status of ROS: Reports: 10 or more systems reviewed and unremarkable except as noted in History and below Narrative: Constitutional: No fevers, no weight gain or loss. Eyes: No discharge. No vision changes. HENT: No congestion, no sore throat, no ear pain. Cardiovascular: No chest pain, no palpitations. Respiratory: No shortness of breath, no wheezes, no cough. Gastrointestinal: Vomiting and diarrhea. Genitourinary: No dysuria, no hematuria. Musculoskeletal: Normal range of motion. Skin: No rashes, no pruritis. Neurological: No dizziness, weakness, sensory change, speech change. Endo/Heme/Allergies: No bruising or bleeding. No polydipsia. Pysch: no suicidality, no anxiety, no insomnia. All other systems reviewed and are negative. [facility] Medical History Health care directive on file ?Z78.9 - Other specified health status (ICD-10) Osteoarthritis of right knee ?M17.11 - Unilateral primary osteoarthritis, right knee (ICD-10) Polypharmacy ?Z79.899 - Other intermodal customer service (current) drug therapy (ICD-10) Paroxysmal SVT (supraventricular tachycardia) (07/28/21) ?I47.10 - Supraventricular tachycardia, unspecified (ICD-10) Localized osteoarthritis of left knee (04/06/20) ?M17.12 - Unilateral primary osteoarthritis, left knee (ICD-10) Hypertension (04/23/11) ?I10 - Essential (primary) hypertension (ICD-10) Hyperlipidemia (03/14/14) ?E78.5 - Hyperlipidemia, unspecified (ICD-10) GERD (gastroesophageal reflux disease) (11/26/08) ?K21.9 - Gastro-esophageal reflux disease without esophagitis (ICD-10) Gastroparesis (11/26/08) ?K31.84 - Gastroparesis (ICD-10) Esophageal stricture (02/25/22) ?K22.2 - Esophageal obstruction (ICD-10) Esophageal reflux (03/02/06) ?K21.9 - Gastro-esophageal reflux disease without esophagitis (ICD-10) 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) ?U09.9 - Post COVID-19 condition, unspecified (ICD-10) Vitamin D deficiency (09/10/10) ?E55.9 - Vitamin D deficiency, unspecified (ICD-10) Varicose veins of lower extremities with other complications (09/18/13) ?I83.893 - Varicose veins of bilateral lower extremities with other complications (ICD-10) Tear of medial meniscus of left knee, current (04/06/20) ?S83.242A - Other tear of medial meniscus, current injury, left knee, initial encounter (ICD-10) Restless legs (11/26/08) ?G25.81 - Restless legs syndrome (ICD-10) Primary open angle glaucoma (POAG) of both eyes, mild stage (03/08/21) ?H40.1131 - Primary open-angle glaucoma, bilateral, mild stage (ICD-10) Postoperative hypothyroidism (03/25/15) ?E89.0 - Postprocedural hypothyroidism (ICD-10) Peroneal tendon tear ?S86.319A - Strain of muscle(s) and tendon(s) of peroneal muscle group at lower leg level, unspecified leg, initial encounter (ICD-10) PE (pulmonary thromboembolism) (11/22/17) ?I26.99 - Other pulmonary embolism without acute cor pulmonale (ICD-10) Thyroid cancer (08/13/07) ?C73 - Malignant neoplasm of thyroid gland (ICD-10) Other specified glaucoma (05/24/21) ?H40.89 - Other specified glaucoma (ICD-10) Obesity, unspecified (11/26/08) ?E66.9 - Obesity, unspecified (ICD-10) Myopia of left eye with astigmatism and presbyopia (02/06/17) ?H52.12 - Myopia, left eye (ICD-10) ?H52.202 - Unspecified astigmatism, left eye (ICD-10) ?H52.4 - Presbyopia (ICD-10) Migraine (03/17/07) ?G43.909 - Migraine, unspecified, not intractable, without status migrainosus (ICD-10) Microalbuminuria due to type 2 diabetes mellitus (10/01/21) ?E11.29 - Type 2 diabetes mellitus with other diabetic kidney complication (ICD-10) ?R80.9 - Proteinuria, unspecified (ICD-10) Lumbosacral spondylosis without myelopathy ?M47.817 - Spondylosis without myelopathy or radiculopathy, lumbosacral region (ICD-10) Lumbosacral radiculopathy ?M54.17 - Radiculopathy, lumbosacral region (ICD-10) Lower respiratory tract infection (10/17/19) ?J22 - Unspecified acute lower respiratory infection (ICD-10) Low back pain ?M54.50 - Low back pain, unspecified (ICD-10) Hyperopia of right eye with astigmatism and presbyopia (02/06/17) ?H52.01 - Hypermetropia, right eye (ICD-10) ?H52.201 - Unspecified astigmatism, right eye (ICD-10) ?H52.4 - Presbyopia (ICD-10) Depression, major, single episode, severe (07/28/21) ?F32.2 - Major depressive disorder, single episode, severe without psychotic features (ICD-10) COVID-19 virus infection (10/23/19) ?U07.1 - COVID-19 (ICD-10) Complex tear of lateral meniscus of left knee as current injury (04/06/20) ?S83.272A - Complex tear of lateral meniscus, current injury, left knee, initial encounter (ICD-10) Chronic pain ?G89.29 - Other chronic pain (ICD-10) Bilateral occipital neuralgia (08/13/20) ?M54.81 - Occipital neuralgia (ICD-10) Morbid obesity ?E66.01 - Morbid (severe) obesity due to excess calories (ICD-10) Recurrent urinary tract infection ?N39.0 - Urinary tract infection, site not specified (ICD-10) Depression ?F32.A - Depression, unspecified (ICD-10) SVT (supraventricular tachycardia) ?I47.10 - Supraventricular tachycardia, unspecified (ICD-10) Hypokalemia ?E87.6 - Hypokalemia (ICD-10) Hx of coronary angiogram ?Z98.890 - Other specified postprocedural states (ICD-10) COVID-19 long hauler ?U09.9 - Post COVID-19 condition, unspecified (ICD-10) Esophageal stricture ?K22.2 - Esophageal obstruction (ICD-10) Paroxysmal SVT (supraventricular tachycardia) ?I47.10 - Supraventricular tachycardia, unspecified (ICD-10) Uncontrolled type 2 diabetes mellitus DVT (deep venous thrombosis) ?I82.409 - Acute embolism and thrombosis of unspecified deep veins of unspecified lower extremity (ICD-10) Pulmonary embolism ?I26.99 - Other pulmonary embolism without acute cor pulmonale (ICD-10) Hyperlipidemia ?E78.5 - Hyperlipidemia, unspecified (ICD-10) Hypertension ?I10 - Essential (primary) hypertension (ICD-10) Gastroparesis ?K31.84 - Gastroparesis (ICD-10) Papillary thyroid carcinoma ?C73 - Malignant neoplasm of thyroid gland (ICD-10) GERD (gastroesophageal reflux disease) ?K21.9 - Gastro-esophageal reflux disease without esophagitis (ICD-10) Surgical History Status post left knee replacement (11/21/23) ?Z96.652 - Presence of left artificial knee joint (ICD-10) Status post right knee replacement (01/30/24) ?Z96.651 - Presence of right artificial knee joint (ICD-10) History of total left knee replacement (11/21/23) ?Z96.652 - Presence of left artificial knee joint (ICD-10) History of phacoemulsification of cataract of both eyes with intraocular lens implantation ?Z98.41 - Cataract extraction status, right eye (ICD-10) ?Z98.42 - Cataract extraction status, left eye (ICD-10) ?Z96.1 - Presence of intraocular lens (ICD-10) Hx of thyroidectomy ?E89.0 - Postprocedural hypothyroidism (ICD-10) Hx of hysterectomy ?Z90.710 - Acquired absence of both cervix and uterus (ICD-10) Hx of hemorrhoidectomy ?Z98.890 - Other specified postprocedural states (ICD-10) Hx of cholecystectomy ?Z90.49 - Acquired absence of other specified parts of digestive tract (ICD- 10) Family History Father Diabetes Cancer Depression Heart disease Sister Diabetes Depression High cholesterol High blood pressure Seizure disorder Paternal Grandfather Coronary artery disease Brother High blood pressure Mother High blood pressure Paternal Grandmother Thyroid disease Social History (Updated 05/20/24 @ 08:33 by Reta Ann ~ [facility], [facility]) What is your current living situation?: I presently have a place to live Problems where you live: no known problems Problems where you live details: NA In the past 12 months, utilities in danger of being shut off: no In past 12 months, lack of transportation kept you from medical appts, meetings, work, or getting things needed for daily living: no In the past 12 mos, have been you worried that your food would run out before you had money to buy more?: never true In the past 12 mos, the food you bought just didn't last and you didn't have money to buy more?: never true Smoking Status: Never smoker Do you use any of these nicotine containing products: None Second hand tobacco smoke exposure: Yes How often do you have a drink containing alcohol: monthly or less How many standard drinks containing alcohol do you have on a typical day: 1 or 2 How often do you have six or more drinks on one occasion: Never AUDIT-C Alcohol total score: 1 Non-prescribed substance use: denies use Caffeine: Yes How often does anyone, including family, friends and others, physically hurt you : never How often does anyone, including family, friends and others, insult or talk down to you: never How often does anyone, including family, friends and others, threaten you with harm: never How often does anyone, including family, friends and others, scream or curse at you: never Are you using contraception or practicing any form of control: No service: No Exam Narrative: Exam Narrative: Constitutional: Well-developed, well-nourished, no acute distress. HEENT: Normocephalic, atraumatic. Neck: Normal range of motion. Nontender. Supple. Heart: Regular. No murmurs. Normal rate. Intact distal pulses. Lungs: Clear to auscultation. No chest discomfort. No wheezes, rhonchi, or rales. Abdomen: Normal bowel sounds. Nontender. No rebound tenderness. Genitalia: Deferred. Back: No midline tenderness. Normal range of motion. Extremities: Normal range of motion. No injury. Skin: Intact. No rash. Warm. No erythema or pallor. Neurologic: No altered sensation. No weakness. Alert and oriented. Psychiatric: No suicidality. No anxiety or depression. No insomnia. Nursing notes and vitals signs are reviewed. Const: Vital Signs, click to edit/add: Vital Signs - 24 hr 08/10/24 10:42 08/10/24 12:46 Temperature 97.1 F L 98.9 F Pulse Rate [Pulse Oximeter] 78 86 Respiratory Rate 18 18 Blood Pressure [Ri ght Upper Arm] 136/69 136/76 Pulse Oximetry 99 98 Oxygen Delivery Me thod Room Air Room Air Course Vital Signs Vital signs: Initial Vital Signs Temperature 97.1 F L 08/10/24 10:42 Temperature Source Temporal Artery Scan 08/10/24 10:42 Pulse Rate 78 08/10/24 10:42 Pulse Rhythm Regular 08/10/24 10:42 Respiratory Rate 18 08/10/24 10:42 Blood Pressure 136/69 08/10/24 10:42 Blood Pressure Mean 91 08/10/24 10:42 Blood Pressure Position Semi-Fowlers 08/10/24 10:42 Pulse Oximetry 99 08/10/24 10:42 Oxygen Delivery Method Room Air 08/10/24 10:42 Vital Signs Temperature 97.1 F L 08/10/24 10:42 Pulse Rate 78 08/10/24 10:42 Respiratory Rate 18 08/10/24 10:42 Blood Pressure 136/69 08/10/24 10:42 Pulse Oximetry 99 08/10/24 10:42 Oxygen Delivery Method Room Air 08/10/24 10:42 Temperature 98.9 F 08/10/24 12:46 Pulse Rate 86 08/10/24 12:46 Respiratory Rate 18 08/10/24 12:46 Blood Pressure 136/76 08/10/24 12:46 Pulse Oximetry 98 08/10/24 12:46 Oxygen Delivery Method Room Air 08/10/24 12:46 Medications Administered Medications: Discontinued Medications Generic Name Dose Route Start Last Admin Trade Name Freq PRN Reason Stop Dose Admin Sodium Chloride 1,000 mls @ 1,000 mls/hr 08/10/24 11:15 08/10/24 11:48 0.9 % Sodium Chloride 1000 Ml IV 08/10/24 12:14 1,000 mls/hr .Q1H CASSI Administration Ketorolac Tromethamine 30 mg 08/10/24 11:07 08/10/24 11:48 Ketorolac 30 Mg/Ml Inj IVP 08/10/24 11:08 30 mg ONCE ONE Administration Ondansetron HCl 4 mg 08/10/24 11:07 08/10/24 11:46 Ondansetron 2 Mg/Ml Inj IVP 08/10/24 11:08 4 mg ONCE ONE Administration Ondansetron HCl 4 mg 08/10/24 12:56 08/10/24 13:17 Ondansetron Odt 4 Mg Tab PO 08/10/24 12:57 4 mg ONCE ONE Administration MDM - Nausea/Vomiting/Diarrhea MDM Narrative Medical decision making narrative: This patient comes in with symptoms typical of viral gastroenteritis which we have been seeing in other people this season. She has vomiting and diarrhea since this morning. An IV was initially established and she did receive doses of Zofran and Toradol but after about 200 mL the IV was no longer functioning. There were about 6 or 7 repeat attempts to establish an IV. The patient states that she is used to this because there has been difficulty in the past placing the IV. Instead of continuing this [facility] the patient was able to take oral liquids. She did also receive an oral dose of Zofran. She is feeling better and is okay to be discharged home. She did receive [facility] prescriptions for Toradol and Zofran. She states that she has Imodium at home. Discharge Plan Discharge Clinical Impression: Gastroenteritis Patient Disposition: Home, Self-Care Condition: Stable Additional Instructions: Take frequent sips of fluids and use medicines as needed and directed. Increase diet also as tolerated. Follow up with MD return if worsening. Prescriptions: No Action (DME) Contour Next Test Strips Strip See Rx Instructions .ROUTE 3XD Qty: 10 Rx Instructions: As directed ketorolac 60 mg/2 mL solution 30 - 60 mg IM DAILY PRN ondansetron HCl 4 mg tablet 4 mg PO Q8H PRN (Reason: nausea/vomiting) atorvastatin 40 mg tablet 40 mg PO HS citalopram 20 mg tablet 30 mg PO DAILY dihydroergotamine 1 mg/mL solution 0.5 - 1 mg IM DAILY PRN esomeprazole magnesium 40 mg capsule,delayed release(DR/EC) 40 mg PO DAILY insulin glargine [Lantus Solostar U-100 Insulin] 100 unit/mL (3 mL) insulin pen 80 unit subcut BID tizanidine 4 mg tablet 4 mg PO HS Loratadine-D 10-240 mg tablet extended release 24 hr 1 tab PO DAILY pramipexole 0.25 mg tablet 0.75 - 1 mg PO HS levothyroxine 200 mcg tablet 200 mcg PO QAM lisinopril 5 mg tablet 5 mg PO DAILY metoprolol succinate 25 mg tablet extended release 24 hr 25 mg PO DAILY nystatin 100,000 unit/gram powder 1 applic topical TID PRN pregabalin 300 mg capsule 300 mg PO BID acetaminophen 500 mg tablet 1,000 mg PO Q6H PRN cyproheptadine 4 mg tablet 4 mg PO QHS PRN sodium fluoride-pot nitrate [PreviDent 5000 Enamel Protect] 1.1-5 % paste 1 applic dental HS Fiasp FlexTouch U-100 Insulin 100 unit/mL (3 mL) insulin pen 1 - 40 unit subcut TIDWM Follow Up/Referrals: Provider,Not a Local [Primary Care Provider] - Stand Alone Forms: MyHealth Info Instructions
[2024-08-10] MEDS: ONDANSETRON 2 MG/ML inj 4 MG IVP (11:46)
[2024-08-10] MEDS: 0.9 % SODIUM CHLORIDE 1000 ml 1,000 ML IV (11:48)
[2024-08-10] MEDS: KETOROLAC 30 MG/ML inj IVP (11:48)
--- OUTSIDE RECORDS SUMMARY | 2024-08-10 11:52 | XMS_ITS ---
Author Organization [facility] Address [address] [place] [address] Care Team Providers Care Dry Finisher Name Role Phone Unavailable Unavailable Unavailable Surgery Details Not on file Complications Check Surgery Details section. Procedure Estimated Blood Loss Check Surgery Details section. Procedure Findings Check Surgery Details section. Procedure Specimens Taken Check Surgery Details section.
--- OUTSIDE RECORDS SUMMARY | 2024-08-10 11:52 | XMS_ITS | Referral Summary ---
Author Organization [facility] Address [address] [place] [address] Care Team Providers Care Car Coupler Name Role Phone Elsewhere, Pcp Primary Care Provider Unavailabl e Source Comments Patient records contain information from all sites at [facility]. For routine questions regarding patient records, call [phone] during business hours, M-F 8:00 AM - 5:00 PM Central Time. Record requests for emergency care only can be directed to [phone] at any time.[facility] Encounters Date Type Department Care Team Description 07/19/2024 Clinical Communication Division of Pain Medicine in [place], [place] [address] [place] [address] Sintia Ovalle P.A.-Alvaro., M.S. Plan of Care ([facility]) 07/02/2024 12:45 PM HAND DRY CLEANER Procedure visit Division of Pain Medicine in [place], [place] [address] [place] [address] Sintia Ovalle P.A.-Alvaro., M.S. Pain Low Back [...] e alcohol) Maybe 1-2 drinks a year [facility] Utilities Answer Date Recorded In the past 12 months has e [employer], gas, oil, or water [employer] threatened to shut off services in your [...] How often do you attend chur or hoahaoism services? Never 09/27/2022 Do you belong to any clubs o r organizations such as amish groups, unions, fraternal or athletic groups, or [...] all 01/05/2023 [facility] of Occupat ional Health - Occupational Stress [...] your living situation today? I have a [facility] place to live 12/17/2023 Education Answer Date Recorded What is the highest level of school you have completed or the highest degree you have received? Associate degree: academic program 09/27/2022 Comments No Sex and Gender Information Value Date Recorded Sex Assigned at Female 09/27/2022 11:01 PM CDT Legal Sex Female 11:29 PM HAND DRY CLEANER Gender Identity Female 09/27/2022 11:01 PM CDT [...] (Latest Contact Info) Description 08/21/2024 7:45 AM HAND DRY CLEANER Clinical Communication Virtual Review in [place], [place] [address] [place] [address] 08/22/2024 8:00 AM HAND DRY CLEANER Virtual Visit Division of Pain Medicine in [address] [address] Amelia Salgado APRN, SPRAY MACHINE LOADER, D.N.P. [address] [place] [phone] Medical Devices Implanted Type Area Voting Machine Repairer Device Identifier Shelf Expiration Date Model / Serial / Lot Knee Implant-11/21/19 24 Implanted:05/0 01/2024 (Quantity not on file) Knee Implant Left: Knee Procedures Procedure Name Priority Date/Time Associated Diagnosis Comments PM TRIGGER POINT INJECTION Routine 07/02/2024 12:45 PM HAND DRY CLEANER Myofascial Pain Syndrome Myalgia Pain Sacroiliac GLUCOSE POCT, B Routine 01/26/2024 9:32 AM CDT from Last 3 Months or Most Recently Relevant to Health Maintenance Results * PM Trigger point injection (07/02/2024 12:45 PM HAND DRY CLEANER) Narrative MMODAL - 07/02/2024 12:45 PM HAND DRY CLEANER Sintia Ovalle P.A.-C., M.S. 07/02/2024 1:27 PM [...] SURGICAL ORDERABLES Final Result Performing Organization Address City/[facility]/ZIP Co de Phone Number MMODAL NA * (ABNORMAL) Glucose, POCT (01/26/2024 9:32 AM CDT) Glucose, POCT, B 152(H) 70 - 140 mg/dL 01/26/2024 9:49 AM CDT PCMO Site Capillary 01/26/2024 9:49 AM CDT PCMO Blood 01/26/2024 9:32 AM CDT 01/26/2024 9:49 AM CDT us Unknown Provider LAB POCT ORDERABLES-MANUAL Kimberlyn l Result Performing Organization Address City/[facility]/ZIP Co de Phone Number POC [facility] [address] [place] [address], [place] PCMO [facility] [place] P[facility] [address] [place] [address] from Last 3 Months or Most Recently Relevant to Health Maintenance Insurance [place] MEDICARE Advance Directives For more information, please contact: [phone] Documents on File Type Date Recorded Patient Director Hematology Expl anation Advance Directives 10/05/2022 8:01 PM Arlen Resendezrianna Rincon HCPOA/ADVOCATE/AGENT/R EPRESENTATIVE/SURROGAT E Healthcare Agents on File Name Relationship Healthcare Agent Relationship Communication Arlen Madrid Mother Health Care Agent [email or web address] [place] Brother First Alternate Health Care Agent Elena Rincon Friend Second Alternate Health Care Agent Care Teams Car Coupler Relationship Specialty Start Date End Date Elsewhere, Pcp PCP - General Internal Medicine 09/30/22
--- OUTSIDE RECORDS SUMMARY | 2024-08-10 11:52 | XMS_ITS | Clinical Summary ---
Author Organization [facility] Address [address] [place] [address] Care Team Providers Care Activities Coordinator Name Role Phone Elsewhere, Pcp Primary Care Provider Unavailabl e Source Comments Patient records contain information from all sites at [facility]. For routine questions regarding patient records, call [phone] during business hours, M-F 8:00 AM - 5:00 PM Central Time. Record requests for emergency care only can be directed to [phone] at any time.[facility] Allergies Active Allergy Reactions Criticality Noted [...] Clinical Communication Division of Pain Medicine in [place], [place] [address] [place] [address] Sintia Ovalle P.A.-Alvaro., M.S. [facility] 07/02/2024 12:45 PM CHIEF ANALYTICS OFFICER Procedure visit Division of Pain Medicine in [place], [place] [address] [place] [address] Sintia Ovalle P.Soha.-C., M.S. Pain Low Back [...] e alcohol) Maybe 1-2 drinks a year [facility] [employer] Answer Date Recorded In the past 12 months has e [employer], gas, oil, or water [employer] threatened to shut off services in your [...] and heating? Not hard at all 01/05/2023 [facility]at ional [facility] - Occupational Stress [...] your living situation today? I have a [facility] place to live 12/17/2023 Education Answer Date Recorded What is the highest level of school you have completed or the highest degree you have received? Associate degree: academic program 09/27/2022 Comments No Sex and Gender Information Value Date Recorded Sex Assigned at Female 09/27/2022 11:01 PM CDT Legal Sex Female 11:29 PM CHIEF ANALYTICS OFFICER Gender Identity Female 09/27/2022 11:01 PM CDT [...] (Latest Contact Info) Description 08/21/2024 7:45 AM CHIEF ANALYTICS OFFICER Clinical Communication Virtual Review in [place], [place] [address] [place] [id number] 08/22/2024 8:00 AM CHIEF ANALYTICS OFFICER Virtual Visit Division of Pain Medicine in [place], [place] [address] [place] [phone] Amelia Salgado APRN, CLASS A [employer] TRUCK [employer]IVER, D.N.P. [address] [place] [phone] Health Maintenance Due Date Last Done Comments [...] this topic Medical Devices Implanted Type Area Still Pump Operator Device Identifier Shelf Expiration Date Model / Serial / Lot Knee Implant-11/21/19 24 Implanted:05/0 01/2024 (Quantity not on file) Knee Implant Left: Knee Procedures Procedure Name Priority Date/Time Associated Diagnosis Comments PM TRIGGER POINT INJECTION Routine 07/02/2024 12:45 PM CHIEF ANALYTICS OFFICER Myofascial Pain Syndrome Myalgia Pain Sacroiliac GLUCOSE POCT, B Routine 01/26/2024 9:32 AM CDT from Last 3 Months or Most Recently Relevant to Health Maintenance Results * PM Trigger point injection (07/02/2024 12:45 PM CHIEF ANALYTICS OFFICER) Narrative MMODAL - 07/02/2024 12:45 PM CHIEF ANALYTICS OFFICER Sintia Ovalle P.A.-C., M.S. 07/02/2024 1:27 PM PM Trigger point injection (left lumbar, right lumbar, right PSIS and left PSIS) Performed by: Sintia Ovalle P.A.-C., M.S. Authorized by: Amelia Salgado APRN, [employer]AL TRUCK [employer]IVER, D.N.P. PROCEDURE SUMMARY Pre procedure pain score: [...] SURGICAL ORDERABLES Final Result Performing Organization Address City/[facility] Co de Phone Number MMODAL NA * (ABNORMAL) Glucose, POCT (01/26/2024 9:32 AM CDT) Glucose, POCT, B 152(H) 70 - 140 mg/dL 01/26/2024 9:49 AM CDT PCMO Site Capillary 01/26/2024 9:49 AM [facility]T [facility] 01/26/2024 9:32 AM CDT 01/26/2024 9:49 AM CDT us Unknown Provider LAB POCT ORDERABLES-MANUAL Kimberlyn l Result POC [facility] [address] [place] [id number] PCMO [facility] POC [address] [place] [address] from Last 3 Months or Most Recently Relevant to Health Maintenance Insurance [place] [address] MEDICARE Advance Directives For more information, please contact: [phone] Documents on File Type Date Recorded Patient Test Kitchen Home Economist Expl anation Advance Directives 10/05/2022 8:01 PM Arlen Rincon HCPOA/ADVOCATE/AGENT/R EPRESENTATIVE/SURROGAT E Healthcare Agents on File Name Relationship Healthcare Agent Relationship Communication Arlen [place] Mother Health Care Agent [email or web address] Dudley Madrid Brother First Alternate Health Care Agent Elena Rincon Friend Second Alternate Health Care Agent Care Teams Activities Coordinator Relationship Specialty Start Date End Date Elsewhere, Pcp PCP - General Internal Medicine 3/17/23
--- OUTSIDE RECORDS SUMMARY | 2024-08-10 11:52 | XMS_ITS | Continuity of Care Document ---
Author Organization [facility] Address [address] [address] [place] [address] Phone Care Team Providers Care Insurance Sales Manager Name Role Phone Tani Peralta MD Unavailable [...] Diagnoses Date Provider Providers Copied on Encounter [facility], [address] [address], [place], [place], [id number], [place] tel:[phone] [facility] No Information 4 Fabian Freire. [address] [facility], [address], [id number], [place]. tel:[phone] [facility], [address] [address], [place], [place], [id number], [place] tel:[phone] [facility] No Information 4 Fabian Freire. [address] [place] [address], [address], [id number], [place]. tel:[phone] Referring Provider: Tani Peralta MD, [address], [address]. tel:[phone] Offic/outpt E&m Estab Mod-hi 2 [facility], [address] [address], [place], [id number], [place] tel:[phone] [facility] GI Symptoms or Concerns (chief complaint) Previous History Review (chief complaint) Dysphagia, unspecified typeNausea and vomiting in adultConstipa tion, chronic 4 Fabian Freire. [facility] [address], [id number], [place]. tel:[phone] Referring Provider: Referral Self, USE FOR SELF REFERRALS. [facility], [address] [address], [place], [address], [place] tel:[phone] [facility] No Information 4 Lionel Stubbs. [address] [place] [address], [id number], [place]. tel:[phone] [facility], [address] [address], [place], [address], [place] tel:[phone] [facility] No Information 3 Bettye Hanson. [facility] [address], [id number], [place]. tel:[phone] Referring Provider: Patricia Salinas, [address] [place], [address]. tel:[phone] [facility], [address] [address], [place], [address], [place] tel:[phone] [facility] Dysphagia, unspecified type 3 Fabian Freire. [address] [place] [address], [id number], [place]. tel:[phone] Established Level 4 [facility], [address] [address], [place], [id number], [place] tel:[phone] [facility] GI Symptoms or Concerns (chief complaint) Gastro-esopha geal reflux disease without esophagitisDy sphagia, unspecified typeChronic idiopathic constipation 3 Fabian Freire. [address] [facility], [address], [id number], [place]. tel:[phone] Clarissa Garcia MD. tel:[phone] Provider: Referral Self, USE FOR SELF REFERRALS. [facility], [address] [address], [place], [id number], [place] tel:[phone] [facility] No Information 3 Fabian Freire. [address] [facility], [address], [id number], [place]. tel:[phone] [facility], [address] [address], [place], [address], [place] tel:[phone] [facility] No Information 2 Fabian Freire. [address] [facility], [address], [id number], [place]. tel:[phone] Referring Provider: [place], [address] [place] [address], [address]. tel:[phone] [facility], [address] [address], [place], [address], [place] tel:[phone] [facility] No Information 2 Lionel Stubbs. [address] [facility], [facility] [address], [place], [id number], [place]. [phone] [facility], [address] [address], [place], [address], [place] tel:[phone] [facility] Dysphagia, unspecified type 2 Fabian Freire. [address] [facility], [address], [id number], [place]. tel:[phone] Established Level 4 [facility], [address] [address], [place], [address], [place] tel:[phone] [facility] GI Symptoms or Concerns (chief complaint) Chest pain, unspecified typeDysphagia , unspecified typeGastro-es ophageal reflux disease without esophagitis 2 Fabian CINTRON Tani. [address] [facility], [place] [address], [place], [place], [id number], [place]. tel:[phone] Clarissa Garcia MD. tel:[phone] Provider: Referral Self, USE FOR SELF REFERRALS. [facility], [address] [address], [place], [id number], [place] tel:[phone] [facility] Constipation, chronic 2 Chase Walker. [address] [facility], [address], [id number], [place]. tel:[phone] Clarissa Garcia MD. tel:[phone] Offic/outpt E&m Estab Mod-hi 2 [facility], [address] [address], [place], [id number], [place] tel:[phone] [facility] GI Symptoms or Concerns (chief complaint) Right sided abdominal painGastropar esisNauseaCon stipation, chronic Oct- 2 Chase Walker. [address] [facility], [address] [address], [place], [place], [id number], [place]. tel:[phone] Clarissa Garcia MD. tel:[phone] Provider: Referral Self, USE FOR SELF REFERRALS. [facility], [address] [address], [place], [id number], [place] tel:[phone] [facility] No Information Sep- 2 Chase Walker. [address] [facility], [place] [address], [place], [place], [id number], [place]. tel:[phone] Offic/outpt E&m Estab Low-mod [facility], [address] [address], [place], [id number], [place] tel:[phone] [facility] GI Symptoms or Concerns (chief complaint) Gastro-esopha geal reflux disease without esophagitisNa useaMixed irritable bowel syndromeFatty (change of) liver, not elsewhere classifiedPos t-COVID syndromeColon cancer screening 1 No Information Clarissa Garcia MD. tel:[phone] ng Provider: Referral Self, USE FOR SELF REFERRALS. [facility], [address] [address], [place], [id number], [place] tel:[phone] [facility] No Information 1 No Information [facility], [address] [address], [place], [id number], [place] tel:[phone] [facility] Rectal bleeding 1 No Information [facility], [address] [address], [place], [id number], [place] tel:[phone] [facility] Blood per rectum 1 No Information Offic/outpt E&m Estab Mod-hi 2 [facility], [address] [address], [place], [id number], [place] tel:[phone] [facility] GI Symptoms or Concerns (chief complaint) Right lower quadrant abdominal painGastro-es ophageal reflux disease without esophagitisIr ritable bowel syndrome without diarrheaPost- COVID syndromeObesi ty, unspecified 1 No Information Clarissa Garcia MD. tel:[phone] agustín Provider: Referral Self, USE FOR SELF REFERRALS. [facility], [address] [address], [place], [id number], [place] tel:[phone] [facility] No Information 1 Domingo Zamudio. [address] [place] [address], [id number], [place]. tel:[phone] Referring Provider: Robb Fitzgerald, [address] [place] [address], [address]. [phone] [facility], [address] [address], [place], [id number], [place] tel:[phone] [facility] No Information 1 No Information [facility], [address] [address], [place], [id number], [place] tel:[phone] [facility] Dysphagia, unspecified type 1 No Information Established Level 3 [facility], [address] [address], [place], [id number], [place] tel:[phone] [facility] Comment (chief complaint) Gastro-esopha geal reflux disease without esophagitisNo n-intractable vomiting with nausea, unspecified vomiting typeIrritable bowel syndrome without diarrheaPost- COVID syndromeFatty liver 1 No Information Clarissa Garcia MD. tel:[phone] ng Provider: Referral Self, USE FOR SELF REFERRALS. Established Level 4 or 25-39 min [facility], [address] [address], [place], [id number], [place] tel:[phone] [facility] GI Symptoms or Concerns (chief complaint) Gastro-esopha geal reflux disease without esophagitisNo n-intractable vomiting with nausea, unspecified vomiting typeFatty (change of) liver, not elsewhere classifiedEde ma, unspecified type 0 No Information Clarissa Gacria MD. tel:[phone] ng Provider: Referral Self, USE FOR SELF REFERRALS. [facility], [address] [address], [place], [id number], [place] tel:[phone] [facility] No Information 0 No Information Clarissa Garcia MD. tel:[phone] [facility], [address] [address], [place], [id number], [place] tel:[phone] [facility] No Information 0 No Information [facility], [address] [address], [place], [id number], [place] tel:[phone] [facility] No Information 0 No Information [facility], [address] [address], [place], [id number], [place] tel:[phone] [facility] Non-intractab le vomiting with nausea, unspecified vomiting type 0 No Information [facility], [address] [address], [place], [id number], [place] tel:[phone] [facility] Non-intractab le vomiting with nausea, unspecified vomiting type 0 No Information Offic/outpt E&m Estab Mod-hi 2 [facility], [address] [address], [place], [id number], [place] tel:[phone] [facility] GI Symptoms or Concerns (chief complaint) Gastro-esopha geal reflux disease without esophagitisIr ritable bowel syndrome without diarrheaFatty liver 9 No Information Clarissa Garcia MD. tel:[phone] ng Provider: Referral Self, USE FOR SELF REFERRALS. [facility], [address] [address], [place], [id number], [place] tel:[phone] [facility] No Information 9 No Information Offic/outpt E&m Estab Mod-hi 2 [facility], [address] [address], [place], [id number], [place] tel:[phone] [facility] GI Symptoms or Concerns (chief complaint) Chest pain, unspecified typeGastro-es ophageal reflux disease without esophagitisIr ritable bowel syndrome without diarrhea 8 No Information Clarissa Garcia MD. tel:[phone] ng Provider: Fabi GUERRERO, [address] [place] [address], [place], [address]. tel:[phone] [facility], [address] [address], [place], [id number], [place] tel:[phone] [facility] Chest pain, unspecified type Mar- 8 No Information Offic/outpt E&m Estab Mod-hi 2 [facility], [address] [address], [place], [place], [id number], [place] tel:[phone] [facility] GI Symptoms or Concerns (chief complaint) Gastro-esopha geal reflux disease without esophagitisFa tty liverDietary counseling and surveillance 8 No Information Clarissa Garcia MD. tel:[phone] ng Provider: Fabi GUERRERO, [address] [place] [address], [address]. tel:[phone] Offic/outpt E&m Estab Mod-hi 2 [facility], [address] [address], [place], [place], [id number], [place] tel:[phone] [facility] GI Symptoms or Concerns (chief complaint) Gastro-esopha geal reflux disease without esophagitisFa tty liverDietary counseling and surveillance 7 No Information Clarissa Garcia MD. tel:[phone] ng Provider: Fabi GUERRERO, [address] [place] [address], [address]. tel:[phone] Offic/outpt E&m Estab Mod-hi 2 [facility], [address] [address], [place], [place], [id number], [place] tel:[phone] [facility] GI Symptoms or Concerns (chief complaint) Gastro-esopha geal reflux disease without esophagitisIr ritable bowel syndrome without diarrheaFatty liver Aug- 7 No Information Clarissa Garcia MD. tel:[phone] ng Provider: Fabi GUERRERO, [address] [place] [address], [address]. tel:[phone] Offic/outpt E&m Estab Mod-hi 2 [facility], [address] [address], [place], [place], [id number], [place] tel:[phone] [facility] GI Symptoms or Concerns (chief complaint) Gastro-esopha geal reflux disease without esophagitisIr ritable bowel syndrome without diarrhea 6 No Information Clarissa Garcia MD. tel:[phone] ng Provider: Fabi GUERRERO, [address] [place] [address], [place], [address]. tel:[phone] Offic/outpt E&m Estab Mod-hi 2 [facility], [address] [address], [place], [id number], [place] tel:[phone] [facility] GI Symptoms or Concerns (chief complaint) Gastroesophag eal RefluxNon-alc oholic Fatty LiverObesityO besity, unspecifiedGa stro-esophage al reflux disease without esophagitisOt her specified diseases of liver Mar- 5 No Information Clarissa Garcia MD. tel:[phone] ng Provider: Fabi GUERRERO, [address] [place] [address], [place], [address]. tel:[phone] Offic/outpt E&m Estab Mod-hi 2 [facility], [address] [address], [place], [id number], [place] tel:[phone] [facility] GI Symptoms or Concerns (chief complaint) Gastroesophag eal RefluxGastrop aresisDietary Surveil/couns el 4 No Information Clarissa Garcia MD. tel:[phone] ng Provider: Fabi GUERRERO, [address] [place] [address], [place], [address]. tel:[phone] [facility], [address] [address], [place], [id number], [place] tel:[phone] [facility] Gastritis W/o BleedGastroes ophageal Reflux Dec- 4 No Information Clarissa Garcia MD. tel:[phone] [facility], [address] [address], [place], [address], [place] tel:[phone] [facility] Gastritis W/o BleedGastroes ophageal RefluxGastrit is W/o BleedGastroes ophageal Reflux Apr-3 0- 4 No Information Referring Provider: Referral Self, USE FOR SELF REFERRALS. Offic/outpt E&m Estab Mod-hi 2 [facility], [address] [address], [place], [id number], [place] tel:[phone] [facility] Gastroesophag eal RefluxGastrop aresis Sep- 4 No Information Referring Provider: Referral Self, USE FOR SELF REFERRALS. Offic/outpt E&m Estab Mod-hi 2 [facility], [address] [address], [place], [id number], [place] tel:[phone] [facility] GERD (chief complaint) Nausea & vomiting (chief complaint) Gastroesophag eal RefluxGastrop aresis Sep- 3 No Information Referring Provider: Clarissa Torres, [address] [place], [address]. tel:[phone] Offic/outpt E&m Estab Mod-hi 2 [facility], [address] [address], [place], [id number], [place] tel:[phone] [facility] GERD (chief complaint) Gastropare sis (chief complaint) Gastroesophag eal RefluxGastrop aresis Oct- 2- 3 No Information Referring Provider: Clarissa Torres, [address] [place], [address]. tel:[phone] [facility], [address] [address], [place], [id number], [place] tel:[phone] [facility] Gastroesophag eal RefluxGastroe sophageal RefluxGastrit is W/o BleedPolyp-in sary/rect/stom -unc BehGastroesop hageal RefluxGastric Polyp-benignG astritis W/o Bleed Jun-0 2 No Information Referring Provider: Clarissa Torres, [address] [place], [address]. tel:[phone] Offic/outpt E&m Estab Mod-hi 2 [facility], [address] [address], [place], [id number], [place] tel:[phone] [facility] Nausea & vomiting (chief complaint) Bloating (chief complaint) Gas (chief complaint) Epigastric PainNausea With VomitingNon-a lcoholic Fatty Liver 2 No Information Referring Provider: Clarissa Torres, [address] [place], [address]. tel:[phone] [facility], [address] [address], [place], [id number], [place] tel:[phone] [facility] Abd Pain Generalized 2 No Information Referring Provider: Clarissa Torres, [address] [place], [address]. tel:[phone] [place] [address] [facility], [address] [address], [place], [id number], [place] tel:[phone] [facility] Gastroesophag eal RefluxHiatal HerniaPolyp-i ntes/rect/sto m-unc BehGastroesop hageal RefluxHiatal HerniaGastrod uodenal Dis NosGastric Polyp-benign 1 No Information Referring Provider: Clarissa Torres, [address], [place], [address]. tel:[phone] Offic/outpt E&m New Mod-hi [facility], [address] [address], [place], [id number], [place] tel:[phone] [facility] Abdominal pain (chief complaint) Belching (chief complaint) Nausea (chief complaint) Heartburn (chief complaint) Regurgitat ion (chief complaint) Gastroesophag eal RefluxEpigast merrick Pain 1 No Information Referring Provider: Referral Self, USE FOR SELF REFERRALS. Offic/outpt E&m Estab Low-mod [facility], [address] [address], [place], [id number], [place] tel:[phone] [facility] Gastroesophag eal RefluxNausea With Vomiting 6 No Information [facility] SAHARA [address] [address], [place], [id number], [place] tel:[phone] Rl [facility] Gastroesophag eal Reflux 6 Tonya John. [address] [facility], [facility] [address], [place], [place], [id number], [place]. [phone] Family History Family Member Type Diagnosis Age [...] democrat ID Sean farrell(s) Medicare NGS MB [id number] [place] Medical Assistance [id number] Social History Type Description Quantity Date Captured [...] Colonoscopy Appointment date/timeframe: -today ordered Referral Ordered: Iron/TIBC Appointment date/timeframe: 01/14/2021 ordered Referral Ordered: Ferritin Appointment date/timeframe: 01/14/2021 ordered Referral Ordered: HGB Appointment date/timeframe: 01/14/2021 ordered Referral Ordered: EGD With Dilation Appointment date/timeframe: 12/04/2020 ordered Referral Ordered: MRI Brain Without Contrast Appointment date/timeframe: -today ordered Referral Ordered: CT Abdomen And Pelvis WITH Contrast Appointment date/timeframe: 08/22/2019 ordered Referral Ordered: EGD Appointment date/timeframe: 08/28/2019 ordered Referral Ordered: Xray Esophagus (Barium Swallow [...] microvascular angina, mixed irritable bowel syndrome, and harr-GOBVP-qifdpgyqt syndrome.She also has a prior history of [...] is on esomeprazole 40 mg daily and lyxm-ihh-gocuflw Zegerid. She occasionally takes esomeprazole twice daily. [...]
--- OUTSIDE RECORDS SUMMARY | 2024-08-10 11:53 | XMS_ITS | Clinical Summary ---
[facility] Address [address] [place] [address] Care Team Providers Care Cranberry Farm Supervisor Name Role Phone Kell Pan PA-C Primary [...] for each transition of care or referral. [employer] Allergies Active Allergy Reactions Criticality Noted Date [...] Comments Blood Pressure 109/68 07/05/2022 11:20 AM VOCATIONAL EDUCATION PROFESSIONAL Pulse 79 07/05/2022 11:20 AM VOCATIONAL EDUCATION PROFESSIONAL Temperature - - Respiratory Rate 17 07/05/2022 11:20 AM VOCATIONAL EDUCATION PROFESSIONAL Oxygen Saturation - - Inhaled Oxygen Concentration - - Weight 175.8 kg (387 lb 8 oz) 03/15/2021 9:53 AM CDT Height 175.3 cm (5' 9) 04/06/2020 12:27 PM CDT Body Mass Index 57.22 04/06/2020 12:27 PM CDT Plan of Treatment Upcoming Encounters Date Type Department Care Team (Late st Contact Info) Description 01/07/2025 11:15 AM CDT Appointment [facility] [address] [place], [place] [address] Mari Rosario, PAAnnmarieC [address] [place] [id number] Health Maintenance Due Date Last Done Comments [...] age to complete this topic Care Teams Cranberry Farm Supervisor Relationship Specialty Start Date End Date Kell Pan PA-C PCP - General Physician Reclamation Furnace Operator 02/06/20
--- OUTSIDE RECORDS SUMMARY | 2024-08-10 11:53 | XMS_ITS | Encounter Summary ---
Author Organization [facility] Address [address] [place] [address] Care Team Providers Care Tearoom Hostess Name Role Phone Elsewhere, Pcp Primary Care Provider Unavailabl e Reason for Visit * Reason Onset Date Comments Plan of Care 07/19/2024 [facility] Encounter Details Date Type Department Care Team (Latest Contact Info) Description 07/19/2024 Clinical Communication Division of Pain Medicine in [place], [place] [address] [place] [address] Sintia Ovalle P.A.-C., M.S. [address] [place] [address] Plan of Care ([facility]) Social History Tobacco Use Types Packs/Day Years Used Date Smoking Tobacco: Never Passive Smoke Exposure: Current Smokeless Tobacco: Never Alcohol Use Standard Drinks/Week Comments Not Currently 0 (1 standard drink = 0.6 oz pur e alcohol) Maybe 1-2 drinks a year [facility] Utilities Answer Date Recorded In [...] week 09/27/2022 How often do you attend [facility] or scientologist services? Never 09/27/2022 Do you belong to [...] Not hard at all 01/05/2023 [facility] - Occupational Stress [...] your living situation today? I have a [facility] place to live 12/17/2023 Education Answer Date Recorded What is the highest level of school you have completed or the highest degree you have received? 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 [address] [place] [address] documented as of this encounter Visit Diagnoses Not on filedocumented in this encounter Care Teams Tearoom Hostess Relationship Specialty Start Date End Date Elsewhere, Pcp PCP - General Internal Medicine 09/30/22 documented as of this encounter
--- OUTSIDE RECORDS SUMMARY | 2024-08-10 11:53 | XMS_ITS | Clinical Summary ---
Author Organization [facility] Address [place], [place] [address] Care Team Providers Care Pre Wave Assembler Name Role Phone Kar Soto MD Unavailable [phone] Olvin Vega MD Unavailable Bhaskar Page MD Unavailable Major Chandler MBBS Unavailable [phone] Isak Nielson MD Unavailable Jillian Daley NP Unavailable [phone] Ania Avalos PsyD, LP Unavailable Na Estes MD Primary Care Provider [phone] Allergies Active Allergy Reactions Criticality Noted Date [...] daily. 60 capsule 12 08/11/19 11:37 AM DIRECTOR OF GLOBAL TALENT Active acetaminophen (TYLENOL EXTRA STRGTH) 500 mg [...] Overview (03/14/2014): Ran calculations Mar 14.;2014: With age43,ecfz607,hdl51, azu487, treated hypertension, +dm. 10year ATHEROSCLEROTIC CARDIOVASCULAR DISEASE [...] 01/22/01: Surgery: subtotal thyroidectomy Pathology (reviewed at [facility] - see notes from [facility] that are currently in the system as [...] follow up with Dr. Tam Daley with [facility] for several years. This included a [...] Department Care Team Description 08/09/2024 9:00 AM DIRECTOR OF GLOBAL TALENT Procedure Only [facility] [address] [place] [address] Yo Owens L Ac Acupuncture 08/09/2024 Travel 08/08/2024 Telephone [facility] [address] [place] [address] Na Estes MD 08/07/2024 Travel 08/05/2024 8:30 AM DIRECTOR OF GLOBAL TALENT Telemedicine [address] [address] Ania Avalos PsyD, LP Individual Therapy; Telehealth (/) 08/05/2024 Travel 08/01/2024 11:30 AM DIRECTOR OF GLOBAL TALENT Telemedicine [address] [place] [address] Ania Avalos PsyD, LP Individual Therapy; Telehealth 08/01/2024 Travel 07/31/2024 Telephone [facility] [address] [place] [address] Na Estes MD 07/25/2024 8:30 AM DIRECTOR OF GLOBAL TALENT Procedure Only [facility] [address] [facility] [address] Yo Owens L Ac Acupuncture 07/25/2024 Travel 07/23/2024 9:00 AM DIRECTOR OF GLOBAL TALENT Office Visit [facility] [address] [place] [address] Na Estes MD Diabetes (follow up/) 07/23/2024 Travel 07/20/2024 Travel 07/16/2024 Refill [facility] [address] [place] [address] Na Estes MD Refill Request (Citalopram) 07/15/2024 8:30 AM DIRECTOR OF GLOBAL TALENT Telemedicine [address] [facility] [address] [place] [address] Robbie, Ania A, PsyD, LP Individual Therapy; Telehealth 07/14/2024 Travel 07/08/2024 1:10 PM DIRECTOR OF GLOBAL TALENT Ancillary Procedure [facility] [address] [place] [address] 07/08/2024 Travel 07/05/2024 11:30 AM DIRECTOR OF GLOBAL TALENT Procedure Only [facility] [address] [place] [address] Yo Owens L Ac Acupuncture 07/05/2024 Travel 07/03/2024 Travel 07/01/2024 8:30 AM DIRECTOR OF GLOBAL TALENT Telemedicine [address] [place] [address] Robbie, Ania A, PsyD, LP Individual Therapy; Telehealth 06/30/2024 Travel 06/20/2024 12:00 PM DIRECTOR OF GLOBAL TALENT Office Visit [facility] [address] [place] [address] Na Estes MD Medication Management (Trulicity medication/) 06/20/2024 Travel 06/17/2024 Travel 06/15/2024 Travel 06/12/2024 8:00 AM DIRECTOR OF GLOBAL TALENT Procedure Only [facility] [address] [place] [address] Yo Owens L Ac Acupuncture 06/12/2024 Refill [facility] [address] [place] [address] Na Estes MD Refill Request (Loratadine-d) 06/11/2024 9:05 AM DIRECTOR OF GLOBAL TALENT Office Visit [facility] [address] [place] [address] Majo Martinez PA Laceration 06/11/2024 Travel 06/10/2024 8:30 AM DIRECTOR OF GLOBAL TALENT Telemedicine [facility] [address] [facility] [address] [place] [address] Ania Avalos PsyD, LP Individual Therapy; Telehealth 06/07/2024 Travel 06/03/2024 8:30 AM DIRECTOR OF GLOBAL TALENT Procedure Only [facility] [address] [place] [address] Yo Owens L Ac Acupuncture 06/03/2024 Refill [facility] [address] [place] [address] Na Estes MD Refill Request (Lisinopril) 06/02/2024 Travel 06/01/2024 Travel 05/30/2024 1:50 PM DIRECTOR OF GLOBAL TALENT Anesthesia Event [facility] [address] [place] [address] Marin Castro MD Jasienski, Jean Jacobson, DRUG DISCOVERY INFORMATICS SPECIALIST 05/30/2024 1:30 PM DIRECTOR OF GLOBAL TALENT - 05/30/2024 2:00 PM DIRECTOR OF GLOBAL TALENT Surgery [facility] [address] [place] [address] Tani Peralta MD EGD WITH BIOPSY AND DILATION TO 20MM 05/30/2024 12:25 PM DIRECTOR OF GLOBAL TALENT - 05/30/2024 4:09 PM DIRECTOR OF GLOBAL TALENT Hospital Encounter [facility] [address] [place] [address] Tani Peralta MD Discharge Disposition: Home Self Care 05/30/2024 Travel 05/27/2024 8:00 AM DIRECTOR OF GLOBAL TALENT Procedure Only [facility] [address] [facility] [address] Yo Owens L Ac Acupuncture 05/27/2024 Travel 05/23/2024 Telephone [facility] [address] [place] [address] Na Estes MD Prior Authorization (insulin aspart, U-100, (NOVOLOG FLEXPEN) 100 unit/mL (3 mL) pen APPROVED 05/09/24 UNTIL FURTHER NOTICE) 05/23/2024 Telephone [facility] [address] [place] [address] Na Estes MD Prior Authorization (Lantus Solostar U-100 Insulin 100 unit/mL (3 mL) pen APPEAL APPROVED 05/23/24-until further notice) 05/23/2024 Travel 05/22/2024 8:30 AM DIRECTOR OF GLOBAL TALENT Telemedicine [place] [address] [facility] [address] [facility] [address] [place] [address] Ania Avalos, Sidney, LP Trmt Plan; Individual Therapy; Telehealth 05/22/2024 Travel 05/21/2024 9:00 AM DIRECTOR OF GLOBAL TALENT Procedure Only [facility] [address] [facility] [address] Yo Owens L Ac Acupuncture 05/20/2024 12:00 PM DIRECTOR OF GLOBAL TALENT Orders Only [facility] [address] [place] [address] Lab 05/20/2024 Travel 05/17/2024 7:30 AM CDT Preop Visit [facility] [address] [place] [address] Na Estes MD Pre-Op Exam (Pre Op for Upper Endoscopy on May 30) 05/16/2024 Travel 05/15/2024 Travel from Last 3 Months Immunizations Name Administration Dates Next Due COVID-19 VACCINE COMIRNATY ([employer] 30MCG/0.3ML) 12YO+ PFS 03/17/2024 COVID-19 vaccine ([employer] 30mcg/0.3mL) 12YO+ ABRAM-SUCROSE PF, MDV 10/08/2021 COVID-19 vaccine ([employer] 30mcg/0.3mL) PF, MDV 10/08/2021,05/04/2021,10/30/2020,2020 DT (Age [...] Disease Father cad Hypertension Mother improved after fpc Other Mother scleroderma Cancer Other first cousin [...] Sex Assigned at Female 07/05/2021 12:17 AM DIRECTOR OF GLOBAL TALENT Legal Sex Female 6:18 AM DIRECTOR OF GLOBAL TALENT Gender Identity Female 07/05/2021 12:17 AM DIRECTOR OF GLOBAL TALENT Sexual Orientation Straight 07/05/2021 12 :17 AM DIRECTOR OF GLOBAL TALENT Obstetrics History Para Term AB IAB SAB Ectopic Multiple Livin g Live Births 0 0 0 0 0 0 0 0 0 0 Last Filed Vital Signs Vital Sign Reading Time Taken Comments Blood Pressure 133/71 07/23/2024 9:51 AM DIRECTOR OF GLOBAL TALENT Pulse 62 07/23/2024 9:51 AM DIRECTOR OF GLOBAL TALENT Temperature 36.5 C (97.7 F) 06/11/2024 9:07 AM DIRECTOR OF GLOBAL TALENT Respiratory Rate 12 05/30/2024 3:30 PM DIRECTOR OF GLOBAL TALENT Oxygen Saturation 99% 07/23/2024 9:07 AM DIRECTOR OF GLOBAL TALENT Inhaled Oxygen Concentration - - Weight 187.4 kg (413 lb 3.2 oz) 07/23/2024 9:07 AM DIRECTOR OF GLOBAL TALENT Height 175.3 cm (5' 9) 07/23/2024 9:07 AM DIRECTOR OF GLOBAL TALENT Body Mass Index 61.02 07/23/2024 9:07 AM DIRECTOR OF GLOBAL TALENT Plan of Treatment Upcoming Encounters Date Type Department Care Team (Late st Contact Info) Description 08/26/2024 8:30 AM DIRECTOR OF GLOBAL TALENT Telemedicine [facility] [address] [facility] [address] [place], [place] [address] Ania Avalos PsyD, ROBINSON [address] [facility] [address] [place] [address] 09/06/2024 9:00 AM DIRECTOR OF GLOBAL TALENT Procedure Only [facility] [address] [facility] [address] Yo Owens L Ac [address] [facility] [place] [address] 09/19/2024 8:30 AM DIRECTOR OF GLOBAL TALENT Telemedicine [facility] [address] [address] Robbie Ania A, PsyD, LP [address] [facility] [address] [place] [address] 09/20/2024 9:00 AM DIRECTOR OF GLOBAL TALENT Procedure Only [facility] [address] [facility] [address] Yo Owens L Ac [address] [facility] [place] [address] 10/04/2024 9:00 AM CDT Procedure Only [facility] [address] [facility] [address] Yo Owens L Ac [address] [place] [place] [address] 10/07/2024 8:30 AM CDT Telemedicine [place] [address] [facility] [address] [address] Robbie Ania A, PsyD, LP [address] [facility] [address] [place] [address] 10/18/2024 9:00 AM CDT Procedure Only [facility] [address] [facility] [address] Yo Owens L Ac [address] [place] [address] 10/28/2024 8:30 AM CDT Telemedicine [facility] [address] [facility] [address] [place] [address] Robbie, Ania A, PsyD, LP [address] [facility] [address] [place] [address] 11/01/2024 9:00 AM CDT Procedure Only [facility] [address] [place] [address] Yo Owens L Ac [address] [place] [address] 11/15/2024 9:00 AM CDT Procedure Only [facility] [address] [place] [address] Yo Owens L Ac [address] [place] [address] 11/18/2024 8:30 AM CDT Telemedicine [facility] [address] [address] Robbie, Ania A, PsyD, LP [address] [address] 11/29/2024 8:00 AM CDT Procedure Only [facility] [address] [place] [address] Yo Owens L Ac [address] [place] [address] 12/06/2024 8:30 AM CDT Telemedicine [facility] [address] [facility] [address] [place] [address] Robbie, Ania A, PsyD, LP [address] [facility] [address] [place] [address] 12/13/2024 8:00 AM CDT Procedure Only [facility] [address] [place] [address] Yo Owens L [address] [place] [address] 12/30/2024 8:30 AM CDT Telemedicine [facility] [address] [place] [address] Robbie, Ania A, PsyD, LP [address] [place], [place] [address] 01/20/2025 8:30 AM CDT Telemedicine [facility] [address] [place] [address] Robbie, Ania A, PsyD, LP [address] [place] [address] Health Maintenance Due Date Last Done Comments HIV for age 15-65 1986 Fecal testing sDNA-FIT (Rand guard) for age 45-75 2016 Mammogram for [...] history exists Medical Devices Implanted Type Area Life Skills Instructor Device Identifier Shelf Expiration Date Model / Serial / Lot Iud, Mirena - [id number] Implanted:Qty: 1 on 01/02/2015 by Mireya Avila MD at [facility] N/A: Uterus R-BACILIO 08/04/2017 [id number] Screw Foot 5x50mm Fixos Comp Implanted:Qty: 1 on 08/20/2018 by Jerod Rivera DPM at [facility] Left: Calcaneus Description:SCREW FOOT 5X50M M FIXOS COMP Procedures Procedure Name Priority Date/Time Associated Diagnosis Comments ACUPUNCTURE PLAN OF CARE Routine 025 9:00 AM DIRECTOR OF GLOBAL TALENT Other low back pain Bilateral chronic knee pain Other chronic pain HEMOGLOBIN A1C Routine 07/23/2024 9:59 AM DIRECTOR OF GLOBAL TALENT Type 2 diabetes mellitus with other specified complication, with long-term current use of insulin (HC) XR MAMMO BILAT SCREENING Routine 024 1:07 PM DIRECTOR OF GLOBAL TALENT Visit for screening mammogram ACUPUNCTURE PLAN OF CARE Routine 024 7:51 AM DIRECTOR OF GLOBAL TALENT Chronic pain of both knees Other low back pain Other chronic pain Chronic intractable headache, unspecified headache type Chronic migraine without aura without status migrainosus, not intractable PATH TISSUE EXAM Today 05/30/2024 2:00 PM DIRECTOR OF GLOBAL TALENT ESOPHAGOGASTRODUODENOSCOPY WITH DILATION Elective 05/30/2024 1:45 PM DIRECTOR OF GLOBAL TALENT See MD note Case Notes ENDO TEAM- will bring supplies and equipment for case.PATIENT IS DIABETIC AND TAKES TRULICITYLATEX ALLERGY GLUCOSE METER Timed 05/30/2024 1:17 PM DIRECTOR OF GLOBAL TALENT ENDOSCOPY 05/30/2024 12:47 PM DIRECTOR OF GLOBAL TALENT SCAN-CARDIAC STRIP 05/30/2024 12:00 AM DIRECTOR OF GLOBAL TALENT ACUPUNCTURE PLAN OF CARE Routine 7:50 AM DIRECTOR OF GLOBAL TALENT Chronic pain of both knees Other low back pain Other chronic pain Chronic intractable headache, unspecified headache type Chronic migraine without aura without status migrainosus, not intractable ACUPUNCTURE PLAN OF CARE Routine 8:56 AM DIRECTOR OF GLOBAL TALENT Chronic pain of both knees Other low back pain Other chronic pain Chronic intractable headache, unspecified headache type Chronic migraine without aura without status migrainosus, not intractable POTASSIUM Routine 05/20/2024 12:01 PM DIRECTOR OF GLOBAL TALENT Preoperative cardiovascular examination Dysphagia, unspecified type LIPID PANEL Routine 04/17/2024 10:14 AM CDT Mixed hyperlipidemia ANTI HCV Routine 02/25/2022 12:11 PM CDT Need for hepatitis C screening test from Last 3 Months or Most Recently Relevant to Health Maintenance Results * (ABNORMAL) HEMOGLOBIN A1C (07/23/2024 9:59 AM DIRECTOR OF GLOBAL TALENT) HEMOGLOBIN A1C 9.1(H) <5.7 % of total Hgb 07/24/2024 5:19 AM DIRECTOR OF GLOBAL TALENT [facility] Comment: For someone without known diabetes, [...] Non-Lab Venipuncture / Unknown 07/23/2024 9:59 AM DIRECTOR OF GLOBAL TALENT 07/23/2024 9:59 AM DIRECTOR OF GLOBAL TALENT Na Estes MD CHEMISTRY Final Resu lt [facility] [address] [place] [address], [place] [phone] * XR MAMMO BILAT SCREENING (07/08/2024 1:07 PM DIRECTOR OF GLOBAL TALENT) Anatomical Region Laterality Modality BREASTS, Breast Left, Breast Right Bilateral Mammography Impressions 07/11/2024 10:46 AM DIRECTOR OF GLOBAL TALENT There is no radiographic evidence for malignancy. Recommend annual mammograms. MAMMOGRAM ASSESSMENT: ACR 1 Negative PATIENTS: You will also receive a letter with your examination results in an easy to read format. If you have questions about your results, please contact your referring provider. Narrative 07/11/2024 10:46 AM DIRECTOR OF GLOBAL TALENT For Patients: As a result of the Century Cures Act, medical imaging exams and procedure reports are released immediately into your electronic medical record. You may view this report before your referring provider. If you have questions, please contact your health care provider. XR MAMMO BILAT SCREENING [[id number]] CLINICAL HISTORY: This is an asymptomatic 54 y.o. patient. INDICATION FOR EXAM: Mammogram Screening. TECHNIQUE: CC & MLO views were obtained. This study was evaluated with the assistance of Computer-Aided Detection. COMPARISON FILM: Yes 07/07/23 [employer] 06/17/22 [employer] FINDINGS: There are scattered areas of fibroglandular density. There are no dominant masses, suspicious micro calcifications or areas of architectural distortion. Na Estes MD MAMMO Final Resu lt * PATH TISSUE EXAM (05/30/2024 2:00 PM DIRECTOR OF GLOBAL TALENT) Case Report Pathology Report Case: [id number] Authorizing Provider: Tani Peralta MD Collected: 05/30/2024 1400 Ordering Location: [facility] Received: 05/30/2024 4217 [facility] Pathologist: Binu Cerda MD Specimen: Gastric Biopsy 05/31/2024 3:08 PM [facility] Final Diagnosis A) STOMACH, BIOPSY: 1. Non-erosive reactive gastropathy (see comment) a. Sampling: Antral and body mucosae b. Distribution: Antral mucosa 2. Negative for inflammation, atrophy and Helicobacter 05/31/2024 3:08 PM [facility] Comment A) The likely etiology is an ongoing non-inflammatory type mucosal injury due to a chemical type of injury; this may be due to ingestion of non-steroidal anti-inflammator y drugs, aspirin (via prostaglandin-me diated injury), excess alcohol, corticosteroids, or bile/alkaline reflux, the latter usually in the setting of a gastroenteric anastomosis. 05/31/2024 3:08 PM [facility] Clinical Information Ms. Madrid is a 54 y.o. with dyspepsia and dysphagia who undergoes upper GI endoscopy. 05/31/2024 3:08 PM [facility] Gross Description A) Received in formalin are 5 padilla mucosal fragments averaging 3 mm in greatest dimension, which are entirely submitted in one cassette. It is labeled with the patient's name and designated gastric biopsy. Suyapa Perez 05/30/2024 3:22 PM 05/31/2024 3:08 PM [facility] Microscopic Description The final diagnosis is based on microscopic examination of appropriate sections of all specimens. 05/31/2024 3:08 PM [facility] ENTRIA [facility] Additional Information Interpreted at [facility] - [address], [place] [address] 05/31/2024 3:08 PM [facility] Biopsy GASTRIC BIOPSY SPECIMEN / Unknown 05/30/2024 2:00 PM DIRECTOR OF GLOBAL TALENT 05/30/2024 2:28 PM DIRECTOR OF GLOBAL TALENT us Tani Peralta MD PATHOLOGY/CYTOLOGY Kimberlyn lou Result [facility] [address] [place] [address], [place] * (ABNORMAL) GLUCOSE METER (05/30/2024 1:17 PM DIRECTOR OF GLOBAL TALENT) GLUCOSE METER 135(H) 65 - 100 mg/dL 05/30/2024 1:23 PM DIRECTOR OF GLOBAL TALENT [facility] Blood BLOOD SPECIMEN / Unknown 05/30/2024 1:17 PM DIRECTOR OF GLOBAL TALENT 05/30/2024 1:23 PM DIRECTOR OF GLOBAL TALENT Tani Peralta MD CHEMISTRY Final R esult [facility] [address] [place] [address], [place] * ENDOSCOPY (05/30/2024 12:47 PM DIRECTOR OF GLOBAL TALENT) 05/30/2024 12:4 7 PM DIRECTOR OF GLOBAL TALENT Narrative Transcriptions Tani Peralta MD - 05/30/2024 2:13 PM [facility] Patient Name: Laura Madrid Procedure Date: 05/30/2024 Gender: Female Date of : 1970 Admit Type: Ambulatory Procedure: Upper GI endoscopy Proceduralist: Tani Peralta MD - [facility] Referring MD: Tani Peralta MD Indications/Pre-Op Diagnosis: Dyspepsia, Dysphagia Medications: Monitored Anesthesia Care Procedure Description: Risk of bleeding, infection, perforation, need for surgery and alternatives discussed. The endoscope [id number] was introduced through the mouth, and advanced [...] esult * SCAN-CARDIAC STRIP (05/30/2024 12:00 AM DIRECTOR OF GLOBAL TALENT) Narrative 05/30/2024 12:00 AM DIRECTOR OF GLOBAL TALENT Ordered by an unspecified provider. Other Clinical Staff OTHER Final Resul t * POTASSIUM (05/20/2024 12:01 PM DIRECTOR OF GLOBAL TALENT) POTASSIUM 3.9 3.5 - 5.3 mmol/L 05/21/2024 2:09 PM DIRECTOR OF GLOBAL TALENT [facility] Blood BLOOD SPECIMEN / Unknown Non-Lab Venipuncture / Unknown 05/20/2024 12:01 PM DIRECTOR OF GLOBAL TALENT 05/20/2024 12:01 PM DIRECTOR OF GLOBAL TALENT Na Estes MD CHEMISTRY Final Resu lt [facility] [address] [place] [address], * LIPID PANEL (04/17/2024 10:14 AM CDT) CHOLESTEROL, TOTAL 136 <200 mg/dL 04/18/2024 8:06 AM CDT [facility] TRIGLYCERIDES 123 <150 mg/dL 04/18/2024 8:06 AM CDT [facility] HDL CHOLESTEROL 53 > OR = 50 mg/dL 04/18/2024 8:06 AM CDT [facility] NON HDL CHOLESTEROL 83 <130 mg/dL (calc) 04/18/2024 8:06 AM CDT [facility] Comment: For patients with diabetes plus 1 major ASCVD risk factor, treating to a non-HDL-C goal of <100 mg/dL (LDL-C of <70 mg/dL) is considered a therapeutic option. CHOL/HDLC RATIO 2.6 <5.0 (calc) 04/18/2024 8:06 AM CDT [facility] LDL-CHOLESTEROL 63 mg/dL (calc) 04/18/2024 8:06 AM CDT [facility] Comment: Reference range: <100 Desirable range <100 mg/dL for primary prevention; <70 mg/dL for patients with CHD or diabetic patients with > or = 2 CHD risk factors. LDL-C is now calculated using the Thony-Armani calculation, which is a validated novel method providing better accuracy than the Friedewald equation in the estimation of LDL-C. Thony SS et al. SAJAN. 2013;310(19): 9753-7120 (http://education.CORP80.Rotapanel/faq/UAC060) Blood BLOOD SPECIMEN / Unknown Non-Lab Venipuncture / Unknown 04/17/2024 10:14 AM CDT 04/17/2024 10:14 AM CDT Na Estes MD CHEMISTRY Final Resu lt Performing Organization Address City/[facility]/ZIP Co de Phone Number [employer] [facility] [address] [place] [address], * ANTI HCV (02/25/2022 12:11 PM CDT) HEPATITIS C ANTIBODY Non-React josefina Non-React josefina 02/25/2022 11:20 PM CDT [facility] Comment:Antibodies to HCV no t detected; does not exclude the possibility of exposure to HCV. Blood BLOOD SPECIMEN / Unknown Venipuncture / Unknown 02/25/2022 12:11 PM CDT 02/25/2022 12:13 PM CDT us Kell GUERRERO SEND OUTS Final Result [facility] [address] [place] [address], [place] from Last 3 Months or Most Recently Relevant to Health Maintenance Insurance MEDICAID MEDICARE PB ONLY MEDICARE PART B HB ONLY MEDICARE PART A HB ONLY [facility] Advance Directives Documents on File Type Date Recorded Patient Transit Man Expl anation Healthcare Directive 09/10/2022 023 Healthcare [...] 4:27 PM 10/23/2019 4:39 PM Care Teams Pre Wave Assembler Relationship Specialty [place] [address] [place] [address] PCP - General Internal Medicine 06/12/23 Kar Soto MD Neurology 05/14/14 Olvin Vega MD [address] [facility] [address] [place] [address] Endocrinology 05/14/14 Bhaskar Page MD [address] [place] [address] [address] [place] [address] Gastroenterology 05/14/14 Major Chandler MBBS [address] [facility] [address] [place] [address] Consulting Physician Cardiovascular Disease 02/05/19 Isak Nielson MD [address] [place] [address] Consulting Physician Cardiology - Electrophysiology 04/22/19 Jillian Daley NP [address] [place] [address] Nurse Practitioner Cardiology - Electrophysiology 07/31/19 Ania Avalos PsyD, LP [address] [place] [address] Psychologist Psychology 10/03/19
--- OUTSIDE RECORDS SUMMARY | 2024-08-10 11:53 | XMS_ITS | Encounter Summary ---
Author Organization [facility] Address [address] [place] [address] Care Team Providers Care Sales Representative [employer] Name Role Phone Elsewhere, Pcp Primary Care Provider Unavailabl e Reason for Referral * Physical Therapy (Routine) - Authorized Specialty Diagnoses / Procedures Referred By Edgar aaron Referred To Contact Diagnoses Myofascial Pain Syndrome Myalgia Pain Low Back Unspecified Sintia vOalle P.A.-C., M.S. Phone: tel: fax: Referral ID Status Reason Start Date Expiration Date Visits Requested Visits Authorized [id number] Authorized Patient Preference 4 01/01/2026 99 99 L REWINDER Reason for Visit * Outpatient (Routine) - Closed Specialty Diagnoses / Procedures Referred By Edgar aaron Referred To Contact Diagnoses Myofascial Pain Syndrome Myalgia Pain Sacroiliac Procedures PM Trigger point injection Amelia Salgado APRN, HEAD NURSE, D.N.P. [address] [place] [address] Phone: tel: fax: [facility] Referral ID Status Reason Start Date Expiration Date Visits Re quested Visits Authorized [id number] Closed 03/12/2024 03/12/2025 1 1 Encounter Details Date Type Department Care Team (Latest Contact Info) Description 07/02/2024 12:45 PM LABEL REWINDER Procedure visit Division of Pain Medicine in [place], [place] [address] [place] [address] Sintia Ovalle P.A.-C., M.S. [address] [place] [address] Pain Low Back Unspecified (Primary Dx); Myofascial Pain Syndrome; Myalgia; Pain Sacroiliac Social History Tobacco Use Types Packs/Day Years Used Date Smoking Tobacco: Never Passive Smoke Exposure: Current Smokeless Tobacco: Never Alcohol Use Standard Drinks/Week Comments Not Currently 0 (1 standard drink = 0.6 oz pur e alcohol) Maybe 1-[address] [facility] [employer] Answer Date Recorded In the past 12 months has [employer], gas, oil, or water [employer] threatened to shut off services in your [...] often do you attend chur ch or nondenominational services? Never 09/27/2022 Do you [...] your living situation today? I have a [facility] place to live 12/17/2023 Education Answer Date Recorded What is the highest level of school you have completed or the highest degree you have received? Associate degree: academic program 09/27/2022 Comments No Sex and Gender Information Value Date Recorded Sex Assigned at Female 09/27/2022 11:01 PM CDT Legal Sex Female 11:29 PM LABEL REWINDER Gender Identity Female 09/27/2022 11:01 PM CDT [...] active of late, shopping or walking within [facility] or [employer] and also just joined [employer]. Medications: Tizanidine 4 mg q.h.s. Pregabalin 300 [...] is ready to have her bilateral L4-5, L5-B0edchkm facet RFA procedure repeated. Followup: She will followup with the pain clinic as needed. Total time: I personally spent a total of 30 minutes in direct discussion, counseling, and/or coordination of care with the patient/caregiver as described above along with [id number]-[id number]-face time performing a review of the record. PATIENT EDUCATION Ready to learn, no apparent learning barriers were identified: learning preferences included listening. Explained diagnosis and treatment plan; patient expressed understanding of the content. L REWINDER documented in this encounter Procedure Notes * [...] none POST-PROCEDURE DETAILS Complications: no apparent complications L REWINDER documented in this encounter Plan of Treatment Upcoming Encounters Date Type Department Care Team (Latest Contact Info) Description 08/21/2024 7:45 AM LABEL REWINDER Clinical Communication Virtual Review in [address] [phone] 08/22/2024 8:00 AM LABEL REWINDER Virtual Visit Division of Pain Medicine in [address] [phone] Amelia Salgado APRN, HEAD NURSE, D.N.P. [address] [place] [phone] documented as of this encounter Procedures Procedure Name Priority Date/Time Associated Diagnosis Comments PM TRIGGER POINT INJECTION Routine 07/02/2024 12:45 PM LABEL REWINDER Myofascial Pain Syndrome Myalgia Pain Sacroiliac documented in this encounter Results * PM Trigger point injection (07/02/2024 12:45 PM LABEL REWINDER) Narrative [facility]ODAL - 07/02/2024 12:45 PM LABEL REWINDER Sintia Ovalle P.A.-C., M.S. 07/02/2024 1:27 PM [...] Complications: no apparent complications Amelia Salgado APRN, HEAD NURSE, D.N.P. PROCEDURE/MIN OR SURGICAL ORDERABLES Final Result [...] Pain Syndrome,Myalgia,Pain Sacroiliac Given 07/02/2024 12:45 PM LABEL REWINDER 5 mL lidocaine 10 mg/mL (1 %) injection 4 mg (Xylocaine) 4 mg, injection, One-Time Injection, Starting on Mon07/02/24 at 1245, For 1 doseIndications:Myofascial Pain Syndrome,Myalgia,Pain Sacroiliac Given 07/02/2024 12:45 PM LABEL REWINDER 4 mg triamcinolone acetonide injection 40 mg (Kenalog-40) 40 mg, injection, One-Time Injection, Starting on Mon07/02/24 at 1245, For 1 doseIndications:Myofascial Pain Syndrome,Myalgia,Pain Sacroiliac Given 07/02/2024 12:45 PM LABEL REWINDER 40 mg documented in this encounter Care Teams Sales Representative [employer] Relationship Specialty Start Date End Date Elsewhere, Pcp PCP - General Internal Medicine 09/30/22 documented as of this encounter
[2024-08-10 12:46] VITALS: BP 136/76; PULSE 86; RESP 18; TEMP 37.2; O2SAT 98
[2024-08-10] MEDS: ONDANSETRON ODT 4 MG TAB PO (13:17)
== END 2024-08-10 15:28 | disposition home or self-care (01) ==
PROVIDERS: Emergency Provider Emergency Medicine Emergency Medical Services
DX: K52.9 Noninfective gastroenteritis and colitis, unspecified (principal)
CPT/HCPCS: 96374; 96375; 99283; 99284; A9270; J1885; J2405; J7030

== ENCOUNTER 2024-10-15 16:15 | Outpatient (RCR) | payer MEDICARE, MEDICAID, SELFPAY | END 2024-11-13 07:44 | disposition home or self-care (01) | PROVIDERS: Visit Provider Physician Assistant | DX: M79.18 Myalgia, other site (principal); M54.50 Low back pain, unspecified; Z51.89 Encounter for other specified aftercare | CPT/HCPCS: 97110; 97140; 97161; 97530 ==

== ENCOUNTER 2025-05-08 12:38 | Outpatient (CLI) | payer MEDICARE, MEDICAID, SELFPAY | END 2025-05-08 12:39 | disposition home or self-care (01) | LOC: WOUND 12:39 | DX: E11.622 Type 2 diabetes mellitus with other skin ulcer (principal); L89.143 Pressure ulcer of left lower back, stage 3; E66.9 Obesity, unspecified; Z79.4 Long term (current) use of insulin | CPT/HCPCS: 11042; G0463 ==

== ENCOUNTER 2025-05-15 10:08 | Outpatient (CLI) | payer MEDICARE, MEDICAID, SELFPAY | END 2025-05-15 10:09 | disposition home or self-care (01) | LOC: WOUND 10:08 | PROVIDERS: Visit Provider Nurse Practitioner Family | DX: E11.622 Type 2 diabetes mellitus with other skin ulcer (principal); L89.143 Pressure ulcer of left lower back, stage 3; E66.9 Obesity, unspecified; Z79.4 Long term (current) use of insulin | CPT/HCPCS: G0463 ==

== ENCOUNTER 2025-05-22 10:05 | Outpatient (CLI) | payer MEDICARE, MEDICAID, SELFPAY | END 2025-05-22 10:06 | disposition home or self-care (01) | LOC: WOUND 10:05 | PROVIDERS: Visit Provider Nurse Practitioner Family | DX: E11.622 Type 2 diabetes mellitus with other skin ulcer (principal); L89.143 Pressure ulcer of left lower back, stage 3; E66.9 Obesity, unspecified; Z79.4 Long term (current) use of insulin | CPT/HCPCS: G0463 ==